=== PATIENT | male | born 1940 | race Caucasian/White ===

== ENCOUNTER 2020-11-22 06:37 | Outpatient (CLI) | payer MEDICARE, SELFPAY ==
--- NOTE | ~2020-11-22 | MR_ITS ---
EXAMINATION: MR lumbar spine wo con DATE: 11/22/2020 07:25 INDICATION: Lumbar spinal stenosis with low back pain radiating down the left leg TECHNIQUE: Magnetic resonance imaging (MRI) of the lumbar spine was performed without intravenous con trast. Sequences included sagittal T2-weighted FSE, sagittal T2-weighted FS FSE, sagittal T1-weighted FSE, and axial T2-weighted FSE. COMPARISON: CT abdomen and pelvis dated 04/15/2017 FINDINGS: Minimal lumbar dextrocurvature. 3 mm retrolisthesis L1 on L2, L3-4 millimeters retrolisthesis L2 on L 3 and L3 on L4 and 6 mm anterolisthesis L5 on S1. Vertebral body heights are normal. Mild fibrofatty and fibrovascular degenerative endplate changes posteriorly at L4-L5. Otherwise normal marrow signal. Severe disc height loss at L3-L4 and L4-L5. Moderate disc height loss at L2-L3 and L5-S1. Mild disc height loss at L1-L2 and at T9-T10 through T11-T12. The conus medullaris terminates at T12. There is normal signal in the caudal spinal cord. Multiple bilateral large T2 hyperintense renal cysts measuri ng up to 6 cm on the right and 5.6 cm on the left. Paravertebral soft tissues are otherwise unremarka ble. The following disc levels are specifically discussed: T12-L1: The disc does not extend beyond the endplate margin. There is mild bilateral facet joint oste oarthritis. There is no neural foraminal stenosis. There is no central canal stenosis. L1-L2: Disc is mildly bulging with superimposed annular fissure and small central disc extrusion with disc material extending a couple millimeter cephalad and caudal to the level of the endplates. There is mild left and minimal right facet joint osteoarthritis. There is mild bilateral, right greater th an left neural foraminal stenosis. There is mild central canal stenosis. L2-L3: Annular fissure with broad-based disc extrusion with disc material extending a few millimeters caudal to the level of the superior endplate of L3 extending from foraminal zone to foraminal zone. There is an additional more focal extrusion versus possibly sequestered disc fragment measuring 6 x 5 mm transaxial dimensions and extending an additional 7 mm caudally at the left lateral recess were i t exerts mass effect upon the traversing left L4 nerve root. There is hypertrophy of the ligamentum f lavum. There is moderate left and mild right facet joint osteoarthritis. There is moderate left and mild to moderate right neural foraminal stenosis. There is moderate central canal stenosis. L3-L4: Annular fissure with broad-based disc extrusion with disc material extending a few millimeter caudal to the level of the superior endplate of L4 extending from foraminal zone to foraminal zone. T here is hypertrophy of the ligamentum flavum. There is mild right facet joint osteoarthritis. There i s moderate bilateral neural foraminal stenosis. There is moderate central canal stenosis. L4-L5: Annular fissure and small disc extrusion extending couple millimeters cephalad and caudal to t he level of the endplates extending from foraminal zone to foraminal zone. There is severe bilateral facet joint osteoarthritis. There is moderate bilateral neural foraminal stenosis. There is moderate to severe central canal stenosis. L5-S1: Annular fissure with disc extrusion with disc material extending couple millimeters cephalad t o the level of the inferior endplate of L5 extending from foraminal zone to foraminal zone. There is severe bilateral facet joint osteoarthritis. There is moderate bilateral neural foraminal stenosis. T here is moderate central canal stenosis. IMPRESSION: 1. Multilevel severe lumbar spondylosis. Reviewed, dictated and finalized at location A.
== END 2020-11-22 06:38 | disposition home or self-care (01) ==
PROVIDERS: PCP Internal Medicine; Visit Provider Nurse Practitioner
DX: M48.061 Spinal stenosis, lumbar region without neurogenic claudication (principal); M21.372 Foot drop, left foot; M47.816 Spondylosis without myelopathy or radiculopathy, lumbar region
CPT/HCPCS: 72148

== ENCOUNTER 2021-11-01 09:42 | Outpatient (CLI) | payer MEDICARE, SELFPAY ==
--- NOTE | ~2021-11-01 | NM_ITS ---
EXAMINATION: NM bone scan whole body DATE: 11/01/2021 14:38 INDICATION: Prostate cancer TECHNIQUE: 27.8 mCi Tc-99m HDP was administered intravenously. Delayed whole-body scintigrams were o btained. COMPARISON: Prior bone scan dated 04/15/[address] abdomen and pelvis dated 11/01/2021 FINDINGS: Likely enthesopathic mild uptake at the right patella and anterior tibial tuberosity. Likely degenera tive joint centered uptake at the bilateral acromioclavicular joints, bilateral facet joints in the m id cervical spine, right first metatarsophalangeal joint and at several joints at the bilateral hands and wrists. Moderate relatively elongated uptake along the lateral right mid/forefoot which could be similar degenerative etiology although location and orientation of the activity could also be seen w ith stress reaction or fracture at one of the lateral metatarsals. Mild degenerative endplate uptake at the left side of the L2-L3, L3-L4 and L4-L5 disc spaces. Small focus of mild likely extravasated s oft tissue activity site of injection at the right forearm. New relatively intense focus of increased uptake at the anterior left sixth rib with corresponding healing rib fracture on the CT images. IMPRESSION: 1. No evident metastatic disease. 2. Mildly intense uptake associated with a healing anterior left sixth rib fracture. 3. Uptake at the lateral right mid/forefoot which could be either degenerative in etiology although l ocation and orientation also be typical for stress reaction/fracture at the base of one of the metata rsals. Could consider relation with plain radiographs of the right foot as clinically indicated. Reviewed, dictated and finalized at location A. IAL PROCEDURES TECHNOLOGIST IMPRESSION: 1. No evident metastatic disease. 2. Mildly intense uptake associated with a healing anterior left sixth rib frac ture. 3. Uptake at the lateral right mid/forefoot which could be either degenerative in etiology although location and orientation also be typical for stress reacti on/fracture at the base of one of the metatarsals. Could consider relation with plain radiographs of the right foot as clinically indicated.
--- NOTE | ~2021-11-01 | CT_ITS ---
EXAMINATION: CT abdomen pelvis w con INDICATION: Malignant neoplasm of the prostate TECHNIQUE: Computed tomographic images of the abdomen and pelvis were obtained after the administrati on of 100 cc of Omnipaque 350 intravenous contrast. The dose-length product (DLP) was 459.26 mGy-cm. Automated exposure control and iterative reconstruction technique were employed. COMPARISON: 04/15/2017 FINDINGS: Minimal dependent atelectasis is present in the lung bases. The heart size is normal. Cysts of the liver measure up to 11 mm in the left hepatic lobe. There is a 10.5 mm hypoattenuating lesion of the spleen not definitely seen on the prior examination. The pancreas, gallbladder, and adrenal g lands are normal. There are multiple cysts of the kidneys. The largest measures 6.4 cm on the left an d contains thin internal septation. There is calcified atherosclerosis of the aorta and many of the o ther arteries. Colonic diverticulosis is present without evidence of diverticulitis. No pathologicall y enlarged abdominal or pelvic lymph nodes are identified. There is no free intraperitoneal gas or ev idence of bowel obstruction. There is severe lumbar spondylosis. IMPRESSION: 1. Indeterminate hypoattenuating lesion of the spleen, new since the comparison examination. Recommen d further evaluation by MRI without and with contrast or PET/CT. Reviewed, dictated and finalized at location B. SORTER IMPRESSION: 1. Indeterminate hypoattenuating lesion of the spleen, new since the comparison examination. Recommend further evaluation by MRI without and with contrast or PET/CT.
[2021-11-01 10:10] LABS: Estimated Glomerular Filt Rate > 60
== END 2021-11-01 09:43 | disposition home or self-care (01) ==
PROVIDERS: PCP Internal Medicine; Visit Provider Urology
DX: C61 Malignant neoplasm of prostate (principal); N28.1 Cyst of kidney, acquired; M47.816 Spondylosis without myelopathy or radiculopathy, lumbar region
CPT/HCPCS: 74177; 78306; A9561; Q9967

== ENCOUNTER 2021-11-23 08:19 | Outpatient (CLI) | payer MEDICARE, SELFPAY ==
--- NOTE | ~2021-11-23 | MR_ITS ---
EXAMINATION: MR abdomen wo/w con DATE: 11/23/2021 09:52 INDICATION: Splenic mass. Prostate cancer. TECHNIQUE: Magnetic resonance imaging (MRI) of the abdomen was performed without and with 14 mL Multi Loretta intravenous contrast. Sequences included coronal T2-weighted FS FSE, coronal and axial FS FIEST A, axial T2-weighted FSE, coronal LAVA-flex, axial STIR FSE, axial DWI, axial dual-echo T1-weighted F SPGR, and axial LAVA. Postcontrast sequences included coronal LAVA-flex and a time course of axial LA VA. COMPARISON: Abdomen MRI 02/15/2008, CT abdomen and pelvis 11/01/2021, 04/15/2017 FINDINGS: There is a small sliding hiatal hernia. There are cysts in the liver measuring up to 12 mm. The gallb ladder is normal. There is a 10 mm cyst in the spleen. There are multiple cystic lesions in the pancr eas measuring up to 9 mm. There is dilatation of pancreatic duct sidechains. These findings are most likely chronic pancreatitis. The adrenal glands are normal. There are cysts in the kidneys measuring up to 6.3 cm on the left. There is diverticulosis of the colon without evidence of diverticulitis. Th ere are no dilated loops of bowel. There are no pathologically enlarged lymph nodes. There is no free intraperitoneal fluid. IMPRESSION: 1. 10 mm benign cyst in the spleen. 2. No evidence of metastatic disease. Reviewed, dictated and finalized at location E.
== END 2021-11-23 08:20 | disposition home or self-care (01) ==
LOC: ANHIMG 08:28
PROVIDERS: PCP Internal Medicine; Visit Provider Urology
DX: Q89.09 Congenital malformations of spleen (principal)
CPT/HCPCS: 74183; A9577

== ENCOUNTER 2022-09-09 11:02 | Emergency (ER) | payer MEDICARE, SELFPAY ==
[2022-09-09 11:12] VITALS: BP 146/75; PULSE 78; RESP 18; TEMP 36.4; O2SAT 97
--- NOTE | 2022-09-09 11:26 | PC.NURSE ---
Pt to xray.
[2022-09-09 11:56] LABS: Basophils Absolute Auto 0.1 K/mm3 (0.0-0.1); Basophils Percent Auto 0.8 % (0.2-1.2); Eosinophils Absolute Auto 0.1 K/mm3 (0-0.3); Hematocrit 41.4 % (42.0-52.0); Hemoglobin 13.7 g/dL (14.0-18.0); Immature Granulocyte Absolute 0.03 K/mm3 (0.00-0.031); Immature Granulocyte Percent A 0.5 % (0-0.5); Lymphocytes Percent Auto 12.7 % (18.3-44.2); Mean Corpuscular HGB Conc 33.1 g/dl (32-36); Mean Corpuscular Hemoglobin 31.5 pg (26-34); Mean Corpuscular Volume 95.2 fl (80-100); Mean Platelet Volume 9.1 fl (7.4-10.4); Monocytes Absolute Auto 0.5 K/mm3 (0.1-0.6); Monocytes Percent Auto 7.8 % (2.6-8.5); Neutrophils Absolute Auto 4.9 K/mm3 (1.3-6.7); Neutrophils Percent Auto 77.2 % (45.5-73.1); Platelet Count Result 304 k/mm3 (150-375); Red Blood Count 4.35 M/mm3 (4.6-6.20); Red Cell Distribution Width 14.6 % (11.5-14.5); White Blood Count 6.3 K/mm3 (4.5-10.0)
[2022-09-09 12:11] LABS: Anion Gap 5 mmol/L (8-16); Blood Urea Nitrogen 15 mg/dL (9-20); Calcium 8.8 mg/dL (8.4-10.2); Carbon Dioxide 27 mmol/L (22-30); Chloride 106 mmol/L (98-107); Estimated CRCL calculation 68 ml/min; Estimated Glomerular Filt Rate > 60; Glucose 95 mg/dL (65-110); Potassium 4.5 mmol/L (3.4-5.0); Sodium 138 mmol/L (137-145)
--- NOTE | 2022-09-09 12:23 | ED.GIBLEED ---
HPI - GI Bleed General Chief complaint: GI Bleed Stated complaint: rectal bleeding Time Seen by Provider: 09/09/22 11:21 History of Present Illness HPI Narrative: 82-year-old male with history of prostate cancer s/p radiation therapy and since then has been having some occasional bright red blood when he wipes, he presented today because it seems to be happening more often when he is wiping. Denies any pain. Also has a history of hemorrhoids. Has had a colonoscopy a long time ago that was normal. No fevers or chills. No dysuria. Related Data Home Medications Medication Instructions Recorded Confirmed aspirin 81 mg tablet,delayed 81 mg PO DAILY 11/14/20 07/08/22 release latanoprost 0.005 % eye drops 1 drp EACH EYE DAILY 11/14/20 07/08/22 multivitamin (Multiple Vitamins 1 tablet PO DAILY 11/14/20 07/08/22 tablet) cholecalciferol (vitamin D3) 10 10 mcg PO DAILY 11/19/21 07/08/22 mcg (400 unit) tablet vit C 250 mg-vit E 90 mg-zinc 40 1 tablet PO BID 11/19/21 07/08/22 mg-copper 1 oc-bfoqln-ezegac capsule (PreserVision AREDS-2) tamsulosin 0.4 mg capsule 0.4 mg PO DAILY 05/21/22 07/08/22 Allergies Allergy/AdvReac Type Severity Reaction Status Date / Time ioversol Allergy Severe Itching Verified 09/09/22 11:03 iodine Allergy Unknown ITCHING Verified 09/09/22 11:03 WITH IV CONTRAST--NO PROBLEM WITH TOPICAL IODINE Review of Systems Review of Systems: CONST: No fever. HEENT: No sore throat C/V: No chest pain RESP: No cough GI: BRBPR, no abdominal pain : No dysuria. M/S: No joint pain. SKIN: No rash. NEURO: [No headache or focal numbness or weakness] PSYCH: [No depression] PMFSH Past Medical History Medical History ASHD (arteriosclerotic heart disease) Essential (primary) hypertension Glaucoma History of prostate cancer Mixed hyperlipidemia Surgical History Surgical History Status post total replacement of left shoulder Family History Family History Father Family history of heart disease in male family member before age 55, Onset Age: 58 Hypertension Mother Bladder cancer Social History Social History Smoking status: Unknown if ever smoked Second hand tobacco smoke exposure: No Alcohol intake: current Alcohol use details: patient states that he drinks 5% [place] hard lemonade and drink 2/3 times weekly. Substance use: never Substance use type: does not use Gender identity (if verbalized by the patient): Male Exam Narrative: EXAMINATION OF ORGAN SYSTEMS/BODY AREAS: Constitutional: Vital signs per nursing GENERAL:[No acute distress, non-toxic appearing.] HEAD: Normal with no signs of head trauma. EYES: EOMI, conjunctiva normal ENT: Hearing grossly intact LUNGS: Nonlabored breathing. HEART: [Regular rate and rhythm] ABD: [Soft], [nontender to palpation] RECTAL: Soft brown stool with minimal bright red blood, hemoccult positive, no tenderness EXT: Normal range of motion SKIN: [No rashes or lesions.] NEURO: [Alert and oriented x 3. No gross focal sensory or strength deficits.] PSYCH: Normal affect Course Vital Signs Vital signs: Vital Signs Temperature 97.5 F L 09/09/22 11:12 Pulse Rate 78 09/09/22 11:12 Respiratory Rate 18 09/09/22 11:12 Blood Pressure 146/75 H 09/09/22 11:12 Pulse Oximetry 97 09/09/22 11:12 Oxygen Delivery Room Air 09/09/22 11:12 Temperature 97.5 F L 09/09/22 11:12 Pulse Rate 78 09/09/22 11:12 Respiratory Rate 18 09/09/22 11:12 Blood Pressure 146/75 H 09/09/22 11:12 Pulse Oximetry 97 09/09/22 11:12 Oxygen Delivery Room Air 09/09/22 11:12 MDM - GI Bleed MDM Narrative Medical decision making narrative: EMR reviewed, patient presenting with bright red blood per rect
--- NOTE | 2022-09-09 12:25 | PC.NURSE ---
Dr. Maradiaga at bedside to discuss results and treatment plan with patient.
== END 2022-09-09 12:36 | disposition home or self-care (01) ==
PROVIDERS: Emergency Provider Emergency Medicine; PCP Internal Medicine
DX: K64.9 Unspecified hemorrhoids (principal); K62.5 Hemorrhage of anus and rectum; I25.10 Atherosclerotic heart disease of native coronary artery without angina pectoris; I10 Essential (primary) hypertension; E78.2 Mixed hyperlipidemia; H40.9 Unspecified glaucoma; Z85.46 Personal history of malignant neoplasm of prostate; Z92.3 Personal history of irradiation; Z79.82 Long term (current) use of aspirin; Z96.612 Presence of left artificial shoulder joint
CPT/HCPCS: 36415; 80048; 85025; 99283

== ENCOUNTER 2022-10-14 11:08 | Day surgery (SDC) | payer MEDICARE, SELFPAY ==
[2022-10-03 10:59] VITALS: BMI 27.0
--- NOTE | 2022-10-13 12:42 | SUR.PREOP ---
PT NOTIFIED OF TIME CHANGE TO 1300 START. PT TO BE HERE AT 1130 ON 10/13/22. PT VERBALIZED UNDERSTANDING.
--- NOTE | 2022-10-13 16:03 | WPDANESEPPF ---
Anes - Initial Pre Proc Eval Procedure: Operation Date: 10/14/22 13:00 Proposed Procedures p Diagnostic Colonoscopy - Osorio Christianson MD Date/Time: 10/13/22 16:03 Surgeon: Osorio Christianson MD Pre Op Diagnosis: Hemorrhage of Anus and Rectum Patient Data Age: 82 Gender: M Height: 1.63 m Weight: 71.5 kg Allergies Allergy/AdvReac Type Severity Reaction Status Date / Time ioversol Allergy Severe Itching Verified 10/14/22 11:45 iodine Allergy Unknown ITCHING Verified 10/14/22 11:45 WITH IV CONTRAST--NO PROBLEM WITH TOPICAL IODINE Home Medications Medication Instructions Recorded Confirmed Type aspirin 81 mg tablet,delayed 81 mg PO DAILY 11/14/20 10/14/22 History release latanoprost 0.005 % eye drops 1 drp EACH EYE DAILY 11/14/20 10/14/22 History multivitamin (Multiple Vitamins 1 tablet PO DAILY 11/14/20 10/14/22 History tablet) cholecalciferol (vitamin D3) 10 10 mcg PO DAILY 11/19/21 10/14/22 History mcg (400 unit) tablet vit C 250 mg-vit E 90 mg-zinc 40 1 tablet PO BID 11/19/21 10/14/22 History mg-copper 1 ly-dltqti-ehltdf capsule (PreserVision AREDS-2) metoprolol tartrate 25 mg tablet 25 mg PO BID #180 tabs 07/04/22 10/14/22 Rx atorvastatin 40 mg tablet 40 mg PO QHS #90 tabs 07/28/22 10/14/22 Rx amlodipine 10 mg tablet 10 mg PO DAILY #90 tabs 08/04/22 10/14/22 Rx lisinopril 20 mg tablet See Rx Instructions .Route 08/19/22 10/14/22 Rx .COMPLEX #90 tabs sodium,potassium,mag sulfates 17.5 See Rx Instructions PO .COMPLEX 10/02/22 10/14/22 Rx gram-3.13 gram-1.6 gram oral soln #354 mL (Suprep Bowel Prep Kit) Patient hx anesthesia problems: none Family hx anesthesia problems: none Results Review: All pre-operative results and documents have been reviewed as part of the pre-operative evaluation. [facility] Past Medical History Medical History (Updated 10/14/22 @ 12:32 by Zoran Cortés DO) ASHD (arteriosclerotic heart disease) CAD (coronary artery disease) COVID Essential (primary) hypertension Glaucoma History of prostate cancer Mixed hyperlipidemia Surgical History Surgical History (Updated 10/14/22 @ 12:32 by Zoran Cortés DO) History of coronary artery stent placement x2, 2000 Status post total replacement of left shoulder Family History Family History Father Family history of heart disease in male family member before age 55, Onset Age: 58 Hypertension Mother Bladder cancer Social History Social History (Updated 10/01/22 @ 10:51 by Ivelisse Bryan CMA) Smoking status: Never smoker Second hand tobacco smoke exposure: No Alcohol intake: current Alcohol use details: patient states that he drinks 5% [place] hard lemonade and drink 2/3 times weekly. Substance use: never Substance use type: does not use Lack of Transportation: No Lack of Food: Never True Current Housing: I Have Housing Concerned About Future Housing: No Difficulty Paying Gas/Electric Bills: No Difficulty Paying for Meds: No Currently Unemployed: No Education: Trade/Vocational Certificate Difficulty w/ Childcare or Family Care: No Living arrangements: with family Occupation/Education: retired Gender identity (if verbalized by the patient): Male Spiritual care concerns: No Anes - Eval Final PreProcedure Day of Procedure 10/13/22 16:03 Patient weight: overweight Heart: regular rate and rhythm Lungs: clear to auscultation Airway: Mallampati scale class II Neurological: alert and oriented Last oral intake: >/= 8 hours ASA classification: III Emergent: no Anesthetic plan: proceed Anesthesia type and monitoring: general GIVS and standard monitoring Results Review: All pre-operative results and documents have been reviewed as part of the pre-operative evaluation. Informed Consent: The patient's anesthetic plan and its attendant risks
[2022-10-14 11:52] VITALS: BP 120/78; PULSE 68; RESP 20; TEMP 36.8; O2SAT 99
[2022-10-14] MEDS: LACTATED RINGERS 1,000 ML 150 ML IV CONT (11:58)
--- NOTE | 2022-10-14 12:56 | WPDHPUPDATE1 ---
History and Physical Update Update Date/Time: 10/14/22 12:56 History and Physical has been reviewed, including an updated exam of the patient. There are NO changes in the patient's condition. Risks, benefits, and alternatives have been discussed and questions answered. Patient agrees to proceed with procedure.
[2022-10-14 13:47] VITALS: BP 101/59; PULSE 62; RESP 17; O2SAT 96
[2022-10-14 13:57] VITALS: BP 105/61; PULSE 59; RESP 18; O2SAT 99
[2022-10-14 14:07] VITALS: BP 104/68; PULSE 61; RESP 18; O2SAT 100
--- NOTE | 2022-10-14 14:19 | WPDANESPN ---
Anes - Prog Note Post-Op Date/Time: 10/14/22 14:19 Cardiovascular status: normal Respiratory status: normal Airway patency: baseline Mental status: baseline Post-Op hydration status: normal Vital Signs: Last Vital Signs Temp 36.8 C 10/14/22 11:52 Pulse 62 10/14/22 13:47 Resp 17 10/14/22 13:47 BP 101/59 L 10/14/22 13:47 Pulse Ox 96 10/14/22 13:47 O2 Del Method Room Air 10/14/22 13:47 Pain Score (VAS): 0 I/O: Intake & Output 10/13/22 10/14/22 10/14/22 23:59 07:59 15:59 Intake Total 500 Balance 500 Post-procedural complaints: none Patient Feedback: Patient satisfied with anesthetic care. Other Findings: Patient vital signs back to baseline. Patient denies nausea and vomiting. Patient's pain under control. Patient OK for discharge.
== END 2022-10-14 14:30 | disposition home or self-care (01) ==
PROVIDERS: PCP Internal Medicine; Visit Provider Internal Medicine Gastroenterology
PROC: 0DJD8ZZ Inspection of Lower Intestinal Tract, Via Natural or Artificial Opening Endoscopic (ICD-10-PCS; CPT 45378; principal; 2022-10-14 13:00)
DX: K62.5 Hemorrhage of anus and rectum (principal)
CPT/HCPCS: 45378

== ENCOUNTER 2023-04-07 06:43 | Outpatient (CLI) | payer MEDICARE, SELFPAY | END 2023-04-07 06:44 | disposition home or self-care (01) | PROVIDERS: PCP Family Medicine; Visit Provider Internal Medicine | DX: E27.40 Unspecified adrenocortical insufficiency (principal); R53.83 Other fatigue | CPT/HCPCS: 36415; 82533; 96372; J0834 ==

== ENCOUNTER 2023-08-20 11:28 | Outpatient (CLI) | payer MEDICARE, SELFPAY ==
--- NOTE | ~2023-08-20 | XR_ITS ---
EXAM: XR foot RT 2V DATE: 08/20/2023 11:48 HISTORY: M79.671 - Pain in right foot, DORSAL 3RD/4TH MT , NO INJURY . COMPARISON: None available. FINDINGS: Decreased mineralization. Well-corticated osseous fragment adjacent to the fifth metatarsa l tuberosity may represent an old fracture fragment. No acute fracture or dislocation. No lytic or bl astic lesion. Mild Achilles and plantar enthesopathy. Scattered degenerative changes, moderate in the midfoot. No erosion or periosteal change. Soft tissues within normal limits. IMPRESSION: No acute osseous finding in the right foot. Reviewed, dictated and finalized at location K. NEL MARKETING MANAGER
== END 2023-08-20 11:29 | disposition home or self-care (01) ==
PROVIDERS: PCP Nurse Practitioner Family; Visit Provider Nurse Practitioner Family
DX: M79.671 Pain in right foot (principal)
CPT/HCPCS: 73620

== ENCOUNTER 2023-10-06 13:38 | Outpatient (CLI) | payer MEDICARE, SELFPAY ==
--- NOTE | ~2023-10-06 | DEXA_ITS ---
Bone Density Report Name: MATTEO CAMEJO Age: 83 Sex: Male Ethnicity: White Date of : 1940 Indication: screening for osteoporosis; height loss; cancer; Referring Provider: AMOR POWELL Study: Bone densitometry was performed. Exam Date: October 06, 2023 Accession number: [id number] Bone Density: Region BMD T-score Z-score Classification AP Spine(L1, L2, L3) 1.004 -0.6 0.6 Normal Femoral Neck (Left) 0.590 -2.5 -0.8 Osteoporosis Total Hip (Left) 0.909 -0.8 0.4 Normal Femoral Neck (Right) 0.606 -2.4 -0.7 Osteopenia Total Hip (Right) 0.815 -1.4 -0.2 Osteopenia Total Hip Mean 0.862 -1.1 0.1 Osteopenia World Health Organization criteria for BMD impression classify patients as: Normal (T-score at or above -1.0), Osteopenia (T-score between -1.0 and -2.5), or Osteoporosis (T-score at or below -2.5). 10-year Fracture Risk: FRAX not reported because: Some T-score for Spine Total or Hip Total or Femoral Neck at or below -2.5 Clinical Information Provided by Patient: Has used the following medications: Vitamin D Has the following medical conditions: Cancer Patient maximum height was 65 Drinks caffeinated beverages Impression: The patient has osteoporosis, based on the Left Femoral Neck T-score. Discussion: INCREASED RISK OF FRACTURE. BONE DENSITY IS UNDESIRABLY LOW AT ONE OR MORE SKELETAL SITES, CONSISTENT WITH OSTEOPOROSIS. This patient's lowest T-score meets the World Health Organization's (WHO) criteria for osteoporosis at one or more sites (T-score -2.5 or below). In untreated patients, the risk of osteoporotic fracture increases approximately two-fold for each 1.0 SD decrease in T-score. Low bone density is not the only risk factor for fracture; also consider factors such as patient's age, frailty or poor health, risk of falling, risk of injury, previous osteoporotic fracture, family history of osteoporosis, cigarette smoking, low body weight, etc. Not everyone with low bone mineral density has osteoporosis; osteomalacia and other metabolic bone disorders should also be considered. Patients who have osteoporosis should be evaluated for specific diseases and conditions (secondary causes) that may cause or contribute to bone loss. The National Osteoporosis Foundation (NOF) recommends pharmacologic intervention for men with BMD at this level (a T-score of -2.5 or below). The patient should follow a healthful lifestyle (good nutrition with adequate calcium and vitamin D, and appropriate weight-bearing exercise). Follow-Up: Consider repeating this study in 2 years to reassess this patient's status, or sooner if there is some new clinical indication. Reported by: [facility] on 10/06/2023 2:17:00 PM. Reviewed, dictated and finalized at location A. MTD
== END 2023-10-06 13:39 | disposition home or self-care (01) ==
PROVIDERS: PCP Nurse Practitioner Family; Visit Provider Internal Medicine
DX: R94.6 Abnormal results of thyroid function studies (principal); M81.0 Age-related osteoporosis without current pathological fracture
CPT/HCPCS: 77080

== ENCOUNTER 2024-07-20 15:02 | Emergency (ER) | payer MEDICARE, SELFPAY ==
[2024-07-20 15:13] VITALS: BP 126/82; PULSE 100; RESP 16; TEMP 36.4; O2SAT 97
--- NOTE | 2024-07-20 15:13 | ED.GENADULT ---
HPI - General Adult General Chief complaint: Urogenital-Male Stated complaint: left testicle pain Time Seen by Provider: 07/20/24 15:13 Source: patient Mode of arrival: ambulatory Limitations: no limitations History of Present Illness HPI narrative: 84 y/o y/o male with history of prostate cancer presented for c/o left testicular pain x1 week. endorses the pain is worse when getting out of bed in the morning, and better throughout the daytime. Pain radiates down the left leg and is worse when trying to lift the left leg. States it feels slightly better after urinating. Pt denies testicular swelling or redness. Denies changes in urination, abdominal pain, nausea, vomiting, diarrhea or fever. Denies chest pain, palpitations, dizziness or shortness of breath. Related Data Home Medications Medication Instructions Recorded Confirmed aspirin 81 mg tablet,delayed 81 mg PO DAILY 11/14/20 02/11/24 release latanoprost 0.005 % eye drops 1 drp EACH EYE DAILY 11/14/20 02/11/24 multivitamin (Multiple Vitamins 1 tablet PO DAILY 11/14/20 02/11/24 tablet) cholecalciferol (vitamin D3) 10 10 mcg PO DAILY 11/19/21 02/11/24 mcg (400 unit) tablet vit C 250 mg-vit E 90 mg-zinc 40 1 tablet PO BID 11/19/21 02/11/24 mg-copper 1 [id number] capsule (PreserVision AREDS-2) krill 300 mg-omega 3 90 mg-dha 24 1 cap PO DAILY 02/02/23 02/11/24 mg-epa 50 [id number] capsule (MegaRed [place]-3 Krill Oil) Allergies Allergy/AdvReac Type Severity Reaction Status Date / Time ioversol Allergy Severe Itching Verified 07/20/24 15:26 iodine Allergy Unknown ITCHING Verified 07/20/24 15:26 WITH IV CONTRAST--NO PROBLEM WITH TOPICAL IODINE Review of Systems Review of Systems: CONSTITUTIONAL: Denies body aches, fever, chills, or sweats. CARDIOVASCULAR: Denies chest pain, palpitations, or edema. RESPIRATORY: Denies cough or dyspnea. GASTROINTESTINAL: Denies abdominal pain, nausea, vomiting, or diarrhea. GENITOURINARY: Reports testicular pain Denies dysuria or hematuria. SKIN: Denies rash, or wounds. MUSCULOSKELETAL: Denies back pain, joint pain, or myalgia. NEUROLOGIC: Denies headache, numbness, tingling, or weakness. All systems reviewed & are unremarkable except as noted in HPI and below COUNT INCLUDES THE [facility] Past Medical History Medical History ASHD (arteriosclerotic heart disease) CAD (coronary artery disease) COVID Essential (primary) hypertension Gastro-esophageal reflux disease without esophagitis Glaucoma History of prostate cancer Left foot drop Lumbar spinal stenosis Mixed hyperlipidemia Osteoporosis Prostate cancer 2021 Radiation proctitis Seborrheic keratosis Surgical History Surgical History History of coronary artery stent placement x2, 1999 History of eye surgery left eye History of shoulder replacement right Status post total replacement of left shoulder Family History Family History Father Family history of heart disease in male family member before age 55, Onset Age: 58 Hypertension Acute myocardial infarction Heart disease Mother Bladder cancer Cerebrovascular accident Sibling , 2021 Liver cancer, primary, with metastasis from liver to other site sister Social History Social History Smoking status: Never smoker Second hand tobacco smoke exposure: No Alcohol intake: current Alcohol use details: occasionally Substance use: never Substance use type: does not use Lack of Transportation: No Lack of Food: Never True Current Housing: I Have Housing Concerned About Future Housing: No Difficulty Paying Gas/Electric Bills: No Difficulty Paying for Meds: No Currently Unemployed: No Education: Trade/Vocational Certificate Difficulty w/ Childcare or Family Care: No Living arrangements: with family Occupation/Education: retired Gender identity (if verbalized by the patient): Male Spiritual care concerns: No Comments At time of signature, I have reviewed and agree with nursing past medical, surgical, social and family history unless otherwise noted. Please see nursing chart for further information. There is no relevant family history pertinent to the presenting complaint Exam Narrative: GENERAL: Well-appearing EYES: EOMI. No redness or drainage. Conjunctivae normal. ENT: Mucous membranes pink and moist. CHEST: No respiratory distress. Clear to auscultation. HEART: Irregular rhythm, tachycardic. No murmur appreciated. ABDOMEN: Soft, nontender, nondistended, normal active bowel sounds. Mildly tender to left inguinal area. : No testicular swelling, abscess, or discharge. Nontender with palpation. SKIN: Warm, dry, no rash. Capillary refill normal. Normal skin turgor. NEURO: No focal deficits. Alert and oriented x3. Gait steady. PSYCH: Normal affect. Course Course Emergency Course: Patient is aware of diagnosis, understands and agrees to treatment plan. Anticipatory guidance given. Patient agrees to follow-up as directed and is aware of reasons to seek care at the emergency department. Portions of this record may have been created with voice recognition software Level of Care: Express Care Visit Transfer Transfered to: [place] Transportation: Other (Private vehicle) Transfer rationale: Pt is agreeable to transfer. Requests transfer to [facility] via private vehicle. Patient declined EMS. Risks of transportation reviewed with pt including injury, worsening of condition and . v/u. Report called to hospital, spoke with Tee, accepting physician. Pt is in stable condition at time of transfer. Advised to remain NPO and go directly to the hospital. Medical Decision Making MDM Narrative Medical decision making narrative: Patient presented for complaint of left testicular pain, however noted to have new onset AFib RVR per EKG. Patient is asymptomatic. Advised ER transfer. Verbalizes understanding. Differential Diagnosis Differential Diagnosis: hydrocele, spermatocele, varicocele, torsion, tumor, inguinal hernia, orchitis, urethritis, epididymitis, uti, prostatitis, jyoti gangrene, tinea cruris, std, malignancy Vital Signs Vital Signs: reviewed ECG Data EKG #1: Attestation: I personally reviewed and interpreted this ECG as follows: (Atrial fibrillation with RVR rate 117, QRS 75, QT/QTc 298/368) Discharge Plan Discharge Clinical Impression: Atrial fibrillation, new onset, Left testicular pain Patient Disposition: Acute Care Hospital Condition: Stable Prescriptions: No Action multivitamin [Multiple Vitamins] Tablet 1 tablet PO DAILY aspirin 81 mg tablet,delayed release (DR/EC) 81 mg PO DAILY latanoprost 0.005 % drops 1 drp EACH EYE DAILY [id number] [MegaRed [place]-3 Krill Oil] [id number] mg capsule 1 cap PO DAILY calcium carbonate 500 mg calcium (1,250 mg) tablet,chewable 500 mg PO BID Qty: 360 0RF PreserVision AREDS-2 250-90-40-1 mg capsule 1 tablet PO BID cholecalciferol (vitamin D3) 10 mcg (400 unit) tablet 10 mcg PO DAILY methocarbamol 500 mg tablet 500 mg PO BID PRN (Reason: muscle pain) Qty: 30 0RF alendronate 35 mg tablet 35 mg PO WEEKLY Qty: 12 0RF Rx Instructions: 35 mg once weekly take the medication on an empty stomach and to wait at least 1 hour before eating drinking taking other medications Not lie down for at least 1 hour after taking the medication metoprolol tartrate 25 mg tablet See Rx Instructions .ROUTE .COMPLEX Qty: 180 0RF Dose Instruction: TAKE 1 TABLET BY MOUTH TWICE DAILY Rx Instructions: TAKE 1 TABLET BY MOUTH TWICE DAILY lisinopril 20 mg tablet See Rx Instructions .ROUTE .COMPLEX Qty: 90 0RF Dose Instruction: TAKE 1 TABLET BY MOUTH DAILY Rx Instructions: TAKE 1 TABLET BY MOUTH DAILY atorvastatin 40 mg tablet See Rx Instructions .ROUTE .COMPLEX Qty: 90 0RF Dose Instruction: TAKE 1 TABLET BY MOUTH EVERY DAY AT BEDTIME Rx Instructions: TAKE 1 TABLET BY MOUTH EVERY DAY AT BEDTIME amlodipine 10 mg tablet See Rx Instructions .ROUTE .COMPLEX Qty: 90 0RF Dose Instruction: TAKE 1 TABLET BY MOUTH DAILY Rx Instructions: TAKE 1 TABLET BY MOUTH DAILY Follow-up/Referrals: Kayla Lindquist APRN [Primary Care Provider] - Time of Disposition: 15:48
--- NOTE | 2024-07-20 15:26 | ECG_ITS ---
Test Date: 2024-07-20 15:36:39 Measurements Intervals [place] Rate: 117 P: 0 AL: 0 QRS: -8 QRSD: 75 T: 25 QT: 298 QTc: 417 Interpretive Statements ATRIAL FIBRILLATION WITH RAPID VENTRICULAR RESPONSE LOW QRS VOLTAGE IN LIMB LEADS INFERIOR INFARCT, AGE INDETERMINATE BORDERLINE ST-T WAVE ABNORMALITY- ANTEROLAT/HIGH LAT LEADS BASELINE ARTIFACT- I, III, AVR, AVL ABNORMAL ECG No previous ECG available for comparison Electronically Signed On 07-20-2024 15:54:35 TOP INSTALLER by Silverio Urias D.O.
== END 2024-07-20 15:54 | disposition short-term general hospital (02) ==
PROVIDERS: Emergency Provider Nurse Practitioner Family; PCP Nurse Practitioner Family
DX: I48.91 Unspecified atrial fibrillation (principal); N50.812 Left testicular pain; I25.10 Atherosclerotic heart disease of native coronary artery without angina pectoris; I10 Essential (primary) hypertension; K21.9 Gastro-esophageal reflux disease without esophagitis; H40.9 Unspecified glaucoma; E78.2 Mixed hyperlipidemia; M81.0 Age-related osteoporosis without current pathological fracture; M48.061 Spinal stenosis, lumbar region without neurogenic claudication; Z85.46 Personal history of malignant neoplasm of prostate; Z86.16 Personal history of COVID-19; Z95.5 Presence of coronary angioplasty implant and graft; Z96.612 Presence of left artificial shoulder joint; Z96.611 Presence of right artificial shoulder joint; Z79.82 Long term (current) use of aspirin
CPT/HCPCS: 93005; 99213; G0463

== ENCOUNTER 2024-07-20 16:19 | Observation (INO) | payer MEDICARE, SELFPAY ==
[2024-07-20] VITALS (16 sets, daily range): BP systolic 98–141; BP diastolic 59–95; PULSE 75–140; RESP 14–20; TEMP 36.5–36.6; O2SAT 97–100; BMI 26.2
--- NOTE | ~2024-07-20 | XR_ITS ---
EXAMINATION: XR chest 1V portable DATE: 07/20/2024 17:09 INDICATION: Tachycardia arrhythmia TECHNIQUE: frontal view of the chest was obtained. COMPARISON: None FINDINGS: Mild streaky left basilar atelectasis. No other airspace opacities, pulmonary edema, pleural effusion or pneumothorax. Calcified right hilar lymph node consistent with old granulomatous disease. Heart s ize is normal. Bilateral total shoulder arthroplasties. IMPRESSION: 1. Mild streaky left basilar atelectasis. No other acute cardiopulmonary disease. Reviewed, dictated and finalized at location A. CARE AIDE TEACHER IMPRESSION: 1. Mild streaky left basilar atelectasis. No other acute cardiopulmonary diseas e.
--- NOTE | ~2024-07-20 | US_ITS ---
TESTICULAR ULTRASOUND (Doppler ultrasound interrogation techniques used as needed for this exam.) Ordering provider: Daniella Sarmiento MD History: . testicular pain . Comparison: None. FINDINGS: TESTICLES: Normal in size. The right measures 3x 1.7x 2.5 cm and the left measures 3.1x 1.8x 2.3 cm. Normal echogenicity bilaterally without mass lesion. Normal Doppler flow bilaterally. Anechoic areas seen in the left testicle anteriorly measuring 0.2 x 0.1 cm. EPIDIDYMIDES: Normal in size. The right measures 1x 0.7 cm. cm and the left 0.7x 0.9 cm. Normal echog enicity bilaterally. Both demonstrate normal Doppler flow. Anechoic areas seen in the right epididymi s measuring 0.3 x 0.2 cm. HYDROCELE: None. VARICOCELE: Left varicocele. OTHER ABNORMALITY: None seen. IMPRESSION: Left testicular cyst. The right epididymal cyst. Left varicocele. Otherwise, normal testicular ultras ound. Reviewed, dictated and finalized at location A. ROASTER IMPRESSION: Left testicular cyst. The right epididymal cyst. Left varicocele. Otherwise, no rmal testicular ultrasound.
--- NOTE | 2024-07-20 16:24 | ECG_ITS ---
Test Date: 2024-07-20 16:29:34 Measurements Intervals [place] Rate: 140 P: 0 AK: 0 QRS: 17 QRSD: 68 T: 53 QT: 275 QTc: 420 Interpretive Statements ATRIAL FIBRILLATION WITH RAPID VENTRICULAR RESPONSE LOW QRS VOLTAGE IN LIMB LEADS BORDERLINE ST-T WAVE ABNORMALITY- DIFFUSE LEADS BASELINE ARTIFACT- I, II, III, AVR, AVL, AVF, V2 ABNORMAL ECG Compared to ECG 07/20/2024 15:36:39 HEART RATE HAS DECREASED Electronically Signed On 07-20-2024 18:22:50 ENGINEERING OPERATOR by Silverio Urias D.O.
--- NOTE | 2024-07-20 16:31 | ED.GENADULT ---
HPI - General Adult General Chief complaint: Urogenital-Male Stated complaint: left testicular pain, new afib Time Seen by Provider: 07/20/24 16:31 Source: patient Mode of arrival: ambulatory Limitations: no limitations History of Present Illness HPI narrative: 84 YEARS OLD WHITE MALE CAME TO THE EMERGENCY ROOM BY PRIVATE CAR COMPLAINING OF LEFT TESTICULAR PAIN STARTED FEW DAYS AGO. HE DENIES ANY FEVER, CHILLS, NAUSEA, VOMITING, ABDOMINAL PAIN, RADIATION OF PAIN, TRAUMA OR TROUBLE URINATING. HISTORY OF HYPERTENSION, HYPERLIPIDEMIA, BABY ASPIRIN ONCE A DAY. HISTORY OF PROSTATIC CANCER POSTOP ACIDOSIS TREATMENT. Related Data Home Medications Medication Instructions Recorded Confirmed aspirin 81 mg tablet,delayed 81 mg PO DAILY 11/14/20 07/20/24 release latanoprost 0.005 % eye drops 1 drp EACH EYE HS 11/14/20 07/20/24 multivitamin (Multiple Vitamins 1 tablet PO DAILY 11/14/20 07/20/24 tablet) cholecalciferol (vitamin D3) 10 10 mcg PO DAILY 11/19/21 07/20/24 mcg (400 unit) tablet vit C 250 mg-vit E 90 mg-zinc 40 1 tablet PO BID 11/19/21 07/20/24 mg-copper 1 [id number]-wmlavw capsule (PreserVision AREDS-2) krill 300 mg-omega 3 90 mg-dha 24 1 cap PO DAILY 02/02/23 07/20/24 mg-epa 50 uw-[id number]-mrgfp capsule (MegaRed [place]-3 Krill Oil) amlodipine 10 mg tablet 10 mg PO DAILY 07/20/24 07/20/24 atorvastatin 40 mg tablet 40 mg PO HS 07/20/24 07/20/24 calcium carbonate 500 mg PO BID PRN Indigestion 07/20/24 07/20/24 lisinopril 20 mg tablet 20 mg PO DAILY 07/20/24 07/20/24 metoprolol tartrate 25 mg tablet 25 mg PO BID 07/20/24 07/20/24 Allergies Allergy/AdvReac Type Severity Reaction Status Date / Time ioversol Allergy Severe Itching Verified 07/20/24 21:40 iodine Allergy Unknown ITCHING Verified 07/20/24 21:40 WITH IV CONTRAST--NO PROBLEM WITH TOPICAL IODINE Review of Systems Review of Systems: All systems reviewed & are unremarkable except as noted in HPI and below PMFSH Past Medical History Medical History CAD (coronary artery disease) With angioplasty and 2 stents in 1999 COVID Essential (primary) hypertension Gastro-esophageal reflux disease without esophagitis Glaucoma History of prostate cancer Kidney stones (~2000) Left foot drop Lumbar spinal stenosis Mixed hyperlipidemia Osteoporosis Prostate cancer 2021 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) 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 bleeding Seborrheic keratosis Sleep apnea With recommended CPAP of pressure 13 on polysomnogram 2011 Vitamin D deficiency Surgical History Surgical History (Updated 07/20/24 @ 21:08 by Anitra Gibson DO) History of coronary artery stent placement x2, 1999 History of eye surgery left eye retinal surgery Status post cataract extraction of both eyes with insertion of intraocular lens Status post total replacement of left shoulder Status post total replacement of right shoulder Family History Family History Father Family history of heart disease in male family member before age 55, Onset Age: 58 Hypertension Acute myocardial infarction Heart disease Mother Bladder cancer Cerebrovascular accident Sibling , 2021 Liver cancer, primary, with metastasis from liver to other site sister Social History Social History (Updated 07/21/24 @ 07:35 by Anitra Gibson DO) Social History: He has been for 63 years. He and his raised 1 daughter and 1 son. 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 He drinks 1 glass of wine couple of times a month. He is a lifelong nonsmoker and denies history of illicit substance use. He works out at least once a week at [employer] usually on the treadmill. Code status: Full code Surrogate decision maker: Smoking status: Never smoker Second hand tobacco smoke exposure: No Alcohol intake: never Alcohol use details: occasionally Substance use: never Substance use type: does not use Do You Feel Safe in your Home?: Yes Lack of Transportation: No Lack of Food: Never True Current Housing: I Have Housing Concerned About Future Housing: No Difficulty Paying Gas/Electric Bills: No Difficulty Paying for Meds: No Currently Unemployed: No Education: Trade/Vocational Certificate Difficulty w/ Childcare or Family Care: No Living arrangements: with family Occupation/Education: retired Gender identity (if verbalized by the patient): Male Spiritual care concerns: No Exam Narrative: GENERAL APPEARANCE: WELL-DEVELOPED, WELL-NOURISHED SKIN: NORMAL COLOR HEAD: NORMOCEPHALIC, NONTRAUMATIC EYES: CLEAR CONJUNCTIVA ENT: OROPHARYNX NORMAL, EARS NORMAL, NOSE NORMAL NECK: SUPPLE, NONTENDER CHEST AND RESPIRATORY: AIRWAY PATENT, NO RESPIRATORY DISTRESS, NO ACCESSORY MUSCLE USE HEART: TACHYCARDIA, IRREGULAR IRREGULARITY ABDOMEN: SOFT, NONTENDER, NO ORGANOMEGALY, QUIET BOWEL SOUNDS GENITAL EXAMINATION SHOWED NO ACUTE ABNORMALITIES, NO LOCALIZED TENDERNESS, NO SWELLING, NO SKIN RASH NO WOUND. MUSCULOSKELETAL: NORMAL RANGE OF MOTION, NONTENDER BACK NEUROLOGIC: ALERT AND ORIENTED ?3, DISTRICT OPERATIONS MANAGER IS NORMAL TESTED, NO GROSS MOTOR DEFICIT Course Consultations Consultation #1: DR RECINOS WILL SEE THE PATIENT IN THE MORNING. Date: 07/20/24 Time: 18:41 Vital Signs Vital signs: Vital Signs Temperature 36.5 C 07/20/24 16:22 Pulse Rate 140 H 07/20/24 16:22 Respiratory Rate 15 07/20/24 16:22 Blood Pressure 141/95 H 07/20/24 16:22 Pulse Oximetry 99 07/20/24 16:22 Oxygen Delivery Room Air 07/20/24 16:22 Temperature 36.9 C 07/21/24 19:08 Pulse Rate 104 H 07/21/24 22:00 Respiratory Rate 18 07/21/24 20:00 Blood Pressure 108/59 L 07/21/24 19:08 Pulse Oximetry 99 07/21/24 20:00 Oxygen Delivery Room Air 07/21/24 20:00 Medical Decision Making MDM Narrative Medical decision making narrative: PATIENT CAME TO THE ED BY PRIVATE CAR COMPLAINING OF LEFT TESTICULAR PAIN, NONTRAUMATIC, 5-6 DAYS AGO. VITAL SIGNS SHOWING HEART RATE OF 140, AFIB WITH RVR, NEW ONSET, PHYSICAL EXAMINATION SHOWED TACHYCARDIA WITH REGULAR IRREGULARITY DIFFERENTIAL DIAGNOSIS INCLUDE TESTICULAR MASS, TORSION, VARICOCELE, CYST, EPIDIDYMITIS, ORCHITIS, AFIB WITH RVR, ELECTROLYTE IMBALANCE, DEHYDRATION, CORONARY ARTERY DISEASE BLOOD WORKUP TODAY INCLUDES CBC, CMP, TROPONIN, PT PTT, BNP SHOWED ELEVATED BNP [id number] OTHERWISE INSIGNIFICANT CHEST X-RAY SHOWED NO ACUTE ABNORMALITIES TESTICULAR ULTRASOUND SHOWED LEFT TESTICULAR CYST, RIGHT EPIDIDYMAL CYST, LEFT VARICOCELE. OTHERWISE NORMAL TESTICULAR ULTRASOUND EKG ON ARRIVAL SHOWED AFIB WITH RVR AT 140 BEATS PER MINUTE ADMIT TO HOSPITALIST, CONSULT CARDIOLOGY AND UROLOGIST Differential Diagnosis Differential Diagnosis: ABOVE Vital Signs Vital Signs: Vital Signs Temperature 36.5 C 07/20/24 16:22 Pulse Rate 140 H 07/20/24 16:22 Respiratory Rate 15 07/20/24 16:22 Blood Pressure 141/95 H 07/20/24 16:22 Pulse Oximetry 99 07/20/24 16:22 Oxygen Delivery Room Air 07/20/24 16:22 Temperature 36.9 C 07/21/24 19:08 Pulse Rate 104 H 07/21/24 22:00 Respiratory Rate 18 07/21/24 20:00 Blood Pressure 108/59 L 07/21/24 19:08 Pulse Oximetry 99 07/21/24 20:00 Oxygen Delivery Room Air 07/21/24 20:00 Lab Data 07/20/24 16:41 07/20/24 16:41 Labs: Lab Results 07/20/24 07/20/24 07/20/24 Range/Units 16:41 16:41 16:41 WBC 7.2 (4.5-10.0) K/mm3 RBC 4.39 L (4.6-6.20) M/mm3 Hgb 13.9 L (14.0-18.0) g/dL Hct 41.3 L (42.0-52.0) % MCV 94.1 (80-100) fl MCH 31.7 (26-34) pg MCHC 33.7 (32-36) g/dl RDW 15.4 H (11.5-14.5) % Plt Count 323 (150-375) k/mm3 MPV 9.0 (7.4-10.4) fl Immature Gran % (Auto) 0.3 (0-0.5) % Neut % (Auto) 70.8 (45.5-73.1) % Lymph % (Auto) 18.1 L (18.3-44.2) % Divide % (Auto) 8.3 (2.6-8.5) % Eos % (Auto) 1.9 (0-4.4) % Baso % (Auto) 0.6 (0.2-1.2) % Lymph # (Auto) 1.31 (0.9-3.2) K/mm3 Divide # (Auto) 0.6 (0.1-0.6) K/mm3 Eos # (Auto) 0.1 (0-0.3) K/mm3 Baso # (Auto) 0.0 (0.0-0.1) K/mm3 Abs Immat Gran (auto) 0.02 (0.00-0.031) K/mm3 Absolute Neuts (auto) 5.1 (1.3-6.7) K/mm3 Absolute Nucleated RBC 0.000 (0.0-0.012) K/mm3 Nucleated RBC % 0.0 (0.0-0.2) % PT 12.7 (11.1-14.7) Seconds INR 0.9 APTT 24.2 (22.3-36.8) Seconds Sodium Cancelled 136 L Potassium Cancelled 4.4 Chloride Cancelled Carbon Dioxide Anion Gap BUN Creatinine Estim Creat Clear Calc Estimated GFR Glucose Calcium Total Bilirubin AST ALT Alkaline Phosphatase Troponin I (0.000-0.034) ng/mL NT-Pro-B Natriuret Pep Total Protein Albumin Urine Color (Yellow) Urine Appearance (Clear) Urine pH (5.0-9.0) Ur Specific Bluebell (1.001-1.035) Urine Protein (Negative) mg/dL Urine Glucose (UA) (Negative) mg/dL Urine Ketones (Negative) mg/dL Ur Blood (Man) (Negative) Urine Nitrate (Negative) Urine Bilirubin (Negative) Urine Urobilinogen (<2.0) mg/dL Leukocyte Esterase Rfl (Negative) GRACE/UL Urine RBC (0-2) /hpf Urine WBC (0-3) /hpf Ur Squamous Epith Cells (Few) /hpf Urine Bacteria /hpf Urine Casts 07/20/24 07/20/24 07/20/24 Range/Units 16:41 16:41 16:41 WBC (4.5-10.0) K/mm3 RBC (4.6-6.20) M/mm3 Hgb (14.0-18.0) g/dL Hct (42.0-52.0) % MCV (80-100) fl MCH (26-34) pg MCHC (32-36) g/dl RDW (11.5-14.5) % Plt Count (150-375) k/mm3 MPV (7.4-10.4) fl Immature Gran % (Auto) (0-0.5) % Neut % (Auto) (45.5-73.1) % Lymph % (Auto) (18.3-44.2) % Divide % (Auto) (2.6-8.5) % Eos % (Auto) (0-4.4) % Baso % (Auto) (0.2-1.2) % Lymph # (Auto) (0.9-3.2) K/mm3 Divide # (Auto) (0.1-0.6) K/mm3 Eos # (Auto) (0-0.3) K/mm3 Baso # (Auto) (0.0-0.1) K/mm3 Abs Immat Gran (auto) (0.00-0.031) K/mm3 Absolute Neuts (auto) (1.3-6.7) K/mm3 Absolute Nucleated RBC (0.0-0.012) K/mm3 Nucleated RBC % (0.0-0.2) % PT (11.1-14.7) Seconds INR APTT (22.3-36.8) Seconds Sodium Potassium Chloride 107 Carbon Dioxide Cancelled 24 Anion Gap Cancelled 5 BUN Cancelled Creatinine Estim Creat Clear Calc Estimated GFR Glucose Calcium Total Bilirubin AST ALT Alkaline Phosphatase Troponin I (0.000-0.034) ng/mL NT-Pro-B Natriuret Pep Total Protein Albumin Urine Color (Yellow) Urine Appearance (Clear) Urine pH (5.0-9.0) Ur Specific Bluebell (1.001-1.035) Urine Protein (Negative) mg/dL Urine Glucose (UA) (Negative) mg/dL Urine Ketones (Negative) mg/dL Ur Blood (Man) (Negative) Urine Nitrate (Negative) Urine Bilirubin (Negative) Urine Urobilinogen (<2.0) mg/dL Leukocyte Esterase Rfl (Negative) GRACE/UL Urine RBC (0-2) /hpf Urine WBC (0-3) /hpf Ur Squamous Epith Cells (Few) /hpf Urine Bacteria /hpf Urine Casts 07/20/24 07/20/24 07/20/24 Range/Units 16:41 16:41 16:41 WBC (4.5-10.0) K/mm3 RBC (4.6-6.20) M/mm3 Hgb (14.0-18.0) g/dL Hct (42.0-52.0) % MCV (80-100) fl MCH (26-34) pg MCHC (32-36) g/dl RDW (11.5-14.5) % Plt Count (150-375) k/mm3 MPV (7.4-10.4) fl Immature Gran % (Auto) (0-0.5) % Neut % (Auto) (45.5-73.1) % Lymph % (Auto) (18.3-44.2) % Divide % (Auto) (2.6-8.5) % Eos % (Auto) (0-4.4) % Baso % (Auto) (0.2-1.2) % Lymph # (Auto) (0.9-3.2) K/mm3 Divide # (Auto) (0.1-0.6) K/mm3 Eos # (Auto) (0-0.3) K/mm3 Baso # (Auto) (0.0-0.1) K/mm3 Abs Immat Gran (auto) (0.00-0.031) K/mm3 Absolute Neuts (auto) (1.3-6.7) K/mm3 Absolute Nucleated RBC (0.0-0.012) K/mm3 Nucleated RBC % (0.0-0.2) % PT (11.1-14.7) Seconds INR APTT (22.3-36.8) Seconds Sodium Potassium Chloride Carbon Dioxide Anion Gap BUN 22 H Creatinine Cancelled 0.70 Estim Creat Clear Calc Cancelled 56 Estimated GFR Cancelled Glucose Calcium Total Bilirubin AST ALT Alkaline Phosphatase Troponin I (0.000-0.034) ng/mL NT-Pro-B Natriuret Pep Total Protein Albumin Urine Color (Yellow) Urine Appearance (Clear) Urine pH (5.0-9.0) Ur Specific Bluebell (1.001-1.035) Urine Protein (Negative) mg/dL Urine Glucose (UA) (Negative) mg/dL Urine Ketones (Negative) mg/dL Ur Blood (Man) (Negative) Urine Nitrate (Negative) Urine Bilirubin (Negative) Urine Urobilinogen (<2.0) mg/dL Leukocyte Esterase Rfl (Negative) GRACE/UL Urine RBC (0-2) /hpf Urine WBC (0-3) /hpf Ur Squamous Epith Cells (Few) /hpf Urine Bacteria /hpf Urine Casts 07/20/24 07/20/24 07/20/24 Range/Units 16:41 16:41 16:41 WBC (4.5-10.0) K/mm3 RBC (4.6-6.20) M/mm3 Hgb (14.0-18.0) g/dL Hct (42.0-52.0) % MCV (80-100) fl MCH (26-34) pg MCHC (32-36) g/dl RDW (11.5-14.5) % Plt Count (150-375) k/mm3 MPV (7.4-10.4) fl Immature Gran % (Auto) (0-0.5) % Neut % (Auto) (45.5-73.1) % Lymph % (Auto) (18.3-44.2) % Divide % (Auto) (2.6-8.5) % Eos % (Auto) (0-4.4) % Baso % (Auto) (0.2-1.2) % Lymph # (Auto) (0.9-3.2) K/mm3 Divide # (Auto) (0.1-0.6) K/mm3 Eos # (Auto) (0-0.3) K/mm3 Baso # (Auto) (0.0-0.1) K/mm3 Abs Immat Gran (auto) (0.00-0.031) K/mm3 Absolute Neuts (auto) (1.3-6.7) K/mm3 Absolute Nucleated RBC (0.0-0.012) K/mm3 Nucleated RBC % (0.0-0.2) % PT (11.1-14.7) Seconds INR APTT (22.3-36.8) Seconds Sodium Potassium Chloride Carbon Dioxide Anion Gap BUN Creatinine Estim Creat Clear Calc Estimated GFR > 60 Glucose Cancelled 100 Calcium Cancelled 9.0 Total Bilirubin Cancelled AST ALT Alkaline Phosphatase Troponin I (0.000-0.034) ng/mL NT-Pro-B Natriuret Pep Total Protein Albumin Urine Color (Yellow) Urine Appearance (Clear) Urine pH (5.0-9.0) Ur Specific Bluebell (1.001-1.035) Urine Protein (Negative) mg/dL Urine Glucose (UA) (Negative) mg/dL Urine Ketones (Negative) mg/dL Ur Blood (Man) (Negative) Urine Nitrate (Negative) Urine Bilirubin (Negative) Urine Urobilinogen (<2.0) mg/dL Leukocyte Esterase Rfl (Negative) GRACE/UL Urine RBC (0-2) /hpf Urine WBC (0-3) /hpf Ur Squamous Epith Cells (Few) /hpf Urine Bacteria /hpf Urine Casts 07/20/24 07/20/24 07/20/24 Range/Units 16:41 16:41 16:41 WBC (4.5-10.0) K/mm3 RBC (4.6-6.20) M/mm3 Hgb (14.0-18.0) g/dL Hct (42.0-52.0) % MCV (80-100) fl MCH (26-34) pg MCHC (32-36) g/dl RDW (11.5-14.5) % Plt Count (150-375) k/mm3 MPV (7.4-10.4) fl Immature Gran % (Auto) (0-0.5) % Neut % (Auto) (45.5-73.1) % Lymph % (Auto) (18.3-44.2) % Divide % (Auto) (2.6-8.5) % Eos % (Auto) (0-4.4) % Baso % (Auto) (0.2-1.2) % Lymph # (Auto) (0.9-3.2) K/mm3 Divide # (Auto) (0.1-0.6) K/mm3 Eos # (Auto) (0-0.3) K/mm3 Baso # (Auto) (0.0-0.1) K/mm3 Abs Immat Gran (auto) (0.00-0.031) K/mm3 Absolute Neuts (auto) (1.3-6.7) K/mm3 Absolute Nucleated RBC (0.0-0.012) K/mm3 Nucleated RBC % (0.0-0.2) % PT (11.1-14.7) Seconds INR APTT (22.3-36.8) Seconds Sodium Potassium Chloride Carbon Dioxide Anion Gap BUN Creatinine Estim Creat Clear Calc Estimated GFR Glucose Calcium Total Bilirubin 0.7 AST Cancelled 30 ALT Cancelled 23 Alkaline Phosphatase Cancelled Troponin I (0.000-0.034) ng/mL NT-Pro-B Natriuret Pep Total Protein Albumin Urine Color (Yellow) Urine Appearance (Clear) Urine pH (5.0-9.0) Ur Specific Bluebell (1.001-1.035) Urine Protein (Negative) mg/dL Urine Glucose (UA) (Negative) mg/dL Urine Ketones (Negative) mg/dL Ur Blood (Man) (Negative) Urine Nitrate (Negative) Urine Bilirubin (Negative) Urine Urobilinogen (<2.0) mg/dL Leukocyte Esterase Rfl (Negative) GRACE/UL Urine RBC (0-2) /hpf Urine WBC (0-3) /hpf Ur Squamous Epith Cells (Few) /hpf Urine Bacteria /hpf Urine Casts 07/20/24 07/20/24 07/20/24 Range/Units 16:41 16:41 16:41 WBC (4.5-10.0) K/mm3 RBC (4.6-6.20) M/mm3 Hgb (14.0-18.0) g/dL Hct (42.0-52.0) % MCV (80-100) fl MCH (26-34) pg MCHC (32-36) g/dl RDW (11.5-14.5) % Plt Count (150-375) k/mm3 MPV (7.4-10.4) fl Immature Gran % (Auto) (0-0.5) % Neut % (Auto) (45.5-73.1) % Lymph % (Auto) (18.3-44.2) % Divide % (Auto) (2.6-8.5) % Eos % (Auto) (0-4.4) % Baso % (Auto) (0.2-1.2) % Lymph # (Auto) (0.9-3.2) K/mm3 Divide # (Auto) (0.1-0.6) K/mm3 Eos # (Auto) (0-0.3) K/mm3 Baso # (Auto) (0.0-0.1) K/mm3 Abs Immat Gran (auto) (0.00-0.031) K/mm3 Absolute Neuts (auto) (1.3-6.7) K/mm3 Absolute Nucleated RBC (0.0-0.012) K/mm3 Nucleated RBC % (0.0-0.2) % PT (11.1-14.7) Seconds INR APTT (22.3-36.8) Seconds Sodium Potassium Chloride Carbon Dioxide Anion Gap BUN Creatinine Estim Creat Clear Calc Estimated GFR Glucose Calcium Total Bilirubin AST ALT Alkaline Phosphatase 90 Troponin I < 0.012 (0.000-0.034) ng/mL NT-Pro-B Natriuret Pep Cancelled 3740 H Total Protein Cancelled 7.0 Albumin Cancelled Urine Color (Yellow) Urine Appearance (Clear) Urine pH (5.0-9.0) Ur Specific Bluebell (1.001-1.035) Urine Protein (Negative) mg/dL Urine Glucose (UA) (Negative) mg/dL Urine Ketones (Negative) mg/dL Ur Blood (Man) (Negative) Urine Nitrate (Negative) Urine Bilirubin (Negative) Urine Urobilinogen (<2.0) mg/dL Leukocyte Esterase Rfl (Negative) GRACE/UL Urine RBC (0-2) /hpf Urine WBC (0-3) /hpf Ur Squamous Epith Cells (Few) /hpf Urine Bacteria /hpf Urine Casts 07/20/24 07/20/24 Range/Units 16:41 19:24 WBC (4.5-10.0) K/mm3 RBC (4.6-6.20) M/mm3 Hgb (14.0-18.0) g/dL Hct (42.0-52.0) % MCV (80-100) fl MCH (26-34) pg MCHC (32-36) g/dl RDW (11.5-14.5) % Plt Count (150-375) k/mm3 MPV (7.4-10.4) fl Immature Gran % (Auto) (0-0.5) % Neut % (Auto) (45.5-73.1) % Lymph % (Auto) (18.3-44.2) % Divide % (Auto) (2.6-8.5) % Eos % (Auto) (0-4.4) % Baso % (Auto) (0.2-1.2) % Lymph # (Auto) (0.9-3.2) K/mm3 Divide # (Auto) (0.1-0.6) K/mm3 Eos # (Auto) (0-0.3) K/mm3 Baso # (Auto) (0.0-0.1) K/mm3 Abs Immat Gran (auto) (0.00-0.031) K/mm3 Absolute Neuts (auto) (1.3-6.7) K/mm3 Absolute Nucleated RBC (0.0-0.012) K/mm3 Nucleated RBC % (0.0-0.2) % PT (11.1-14.7) Seconds INR APTT (22.3-36.8) Seconds Sodium Potassium Chloride Carbon Dioxide Anion Gap BUN Creatinine Estim Creat Clear Calc Estimated GFR Glucose Calcium Total Bilirubin AST ALT Alkaline Phosphatase Troponin I < 0.012 (0.000-0.034) ng/mL NT-Pro-B Natriuret Pep Total Protein Albumin 4.2 Urine Color Yellow (Yellow) Urine Appearance Clear (Clear) Urine pH 6.0 (5.0-9.0) Ur Specific Bluebell 1.007 (1.001-1.035) Urine Protein Negative (Negative) mg/dL Urine Glucose (UA) Negative (Negative) mg/dL Urine Ketones Negative (Negative) mg/dL Ur Blood (Man) Non-hemolyzed trace (Negative) Urine Nitrate Negative (Negative) Urine Bilirubin Negative (Negative) Urine Urobilinogen 0.2 (<2.0) mg/dL Leukocyte Esterase Rfl Negative (Negative) GRACE/UL Urine RBC 0-2 (0-2) /hpf Urine WBC 0-5 (0-3) /hpf Ur Squamous Epith Cells None seen (Few) /hpf Urine Bacteria None seen /hpf Urine Casts 0-2 Imaging Data Radiologist's impression: Impressions Chest X-Ray 07/20/24 17:14 IMPRESSION: 1. Mild streaky left basilar atelectasis. No other acute cardiopulmonary disease. Scrotum Ultrasound 07/20/24 17:37 IMPRESSION: Left testicular cyst. The right epididymal cyst. Left varicocele. Otherwise, normal testicular ultrasound. ECG Data EKG #1: Attestation: I personally reviewed and interpreted this ECG as follows: Prior ECG tracings: not available for review Interpretation: ATRIAL FIBRILLATION WITH RVR AT 140 BEATS PER MINUTE, INFERIOR INFARCT, AGE INDETERMINATE, BORDERLINE ST T-WAVE ABNORMALITY, ABNORMAL EKG, NO PREVIOUS EKG AVAILABLE FOR COMPARISON EKG #2: Attestation: I personally reviewed and interpreted this ECG as follows: ECG completion date: 07/20/24 Prior ECG tracings: available for review Interpretation: AFIB WITH RVR AT 117 BEATS PER MINUTE, LOW QRS VOLTAGE IN LIMB LEADS, BORDERLINE ST T-WAVE ABNORMALITY-DIFFUSELY, ABNORMAL EKG, COMPARED TO EKG THE 1 WE HAVE EARLIER TODAY HEART RATE HAS DECREASED Critical Care Time Critical Care Time Critical Care Time: Yes Total Critical Care Time: 30 Discharge Plan Discharge Clinical Impression: Cyst of testis, Atrial fibrillation with rapid ventricular response Patient Disposition: Still a Patient Condition: Stable
[2024-07-20] MEDS: dilTIAZem HCl INJ 25 MG/5 ML VIAL 10 MG IV PUSH (16:43)
[2024-07-20] MEDS: dilTIAZem 100 MG/100 ML 100 MG/100 ML BAG IV CONT ×2 (16:44→23:39)
[2024-07-20 16:52] LABS: Basophils Percent Auto 0.6 % (0.2-1.2); Eosinophils Absolute Auto 0.1 K/mm3 (0-0.3); Eosinophils Percent Auto 1.9 % (0-4.4); Hematocrit 41.3 % (42.0-52.0); Hemoglobin 13.9 g/dL (14.0-18.0); Immature Granulocyte Absolute 0.02 K/mm3 (0.00-0.031); Immature Granulocyte Percent A 0.3 % (0-0.5); Lymphocytes Absolute Auto 1.31 K/mm3 (0.9-3.2); Lymphocytes Percent Auto 18.1 % (18.3-44.2); Mean Corpuscular HGB Conc 33.7 g/dl (32-36); Mean Corpuscular Hemoglobin 31.7 pg (26-34); Mean Corpuscular Volume 94.1 fl (80-100); Monocytes Absolute Auto 0.6 K/mm3 (0.1-0.6); Monocytes Percent Auto 8.3 % (2.6-8.5); Neutrophils Absolute Auto 5.1 K/mm3 (1.3-6.7); Neutrophils Percent Auto 70.8 % (45.5-73.1); Platelet Count Result 323 k/mm3 (150-375); Red Blood Count 4.39 M/mm3 (4.6-6.20); Red Cell Distribution Width 15.4 % (11.5-14.5); White Blood Count 7.2 K/mm3 (4.5-10.0)
[2024-07-20 17:02] LABS: Alanine Aminotransferase 23 U/L (6-50); Albumin Level 4.2 g/dL (3.5-5.1); Alkaline Phosphatase 90 U/L (38-126); Anion Gap 5 mmol/L (4-12); Aspartate Amino Transferase 30 U/L (17-59); Bilirubin,Total 0.7 mg/dL (0.2-1.3); Blood Urea Nitrogen 22 mg/dL (9-20); Carbon Dioxide 24 mmol/L (22-30); Chloride 107 mmol/L (98-107); Estimated CRCL calculation 56 ml/min; Estimated Glomerular Filt Rate > 60; Glucose 100 mg/dL (65-110); Potassium 4.4 mmol/L (3.4-5.0); Sodium 136 mmol/L (137-145)
[2024-07-20 17:03] LABS: INR 0.9; Prothrombin Time 12.7 Seconds (11.1-14.7)
[2024-07-20 17:04] LABS: Partial Thromboplastin Time 24.2 Seconds (22.3-36.8)
[2024-07-20 17:06] LABS: Add Urine Microscopic? NO; Appearance Urine Clear (Clear); Bacteria Urine None Seen /hpf; Bilirubin Urine Negative (Negative); Blood Urine Non-Hemolyzed Trace (Negative); Color Urine Yellow (Yellow); Glucose Urine UA Negative (Negative); Ketones Urine Negative (Negative); Leukocyte Esterase Ur Negative LEU/UL (Negative); Nitrate Urine Negative (Negative); Non Pathogenic Casts 0-2; Protein Urine Negative (Negative); RBC Urine 0-2 /hpf (0-2); Specific Grav Ur 1.007 (1.001-1.035); Squamous Epithelial Cell Urine None Seen /hpf (Few); Urobilinogen Urine 0.2 mg/dL (<2.0); WBC Urine 0-5 /hpf (0-3)
[2024-07-20 17:13] LABS: NT Pro B Type Natriuretic Pept 3740 pg/mL (19.9-100); Troponin I < 0.012 ng/mL (0.000-0.034)
[2024-07-20] MEDS: ENOXAPARIN 80 MG/0.8 ML SYRINGE 70 MG SUB-Q (18:38)
--- NOTE | 2024-07-20 19:27 | PM.IMHP ---
H&P: HPI History of Present Illness Date/Time: 07/20/24 19:27 Chief Complaint: Testicular Pain Narrative: 84 y/o M presents here with left testicular pain with PMH of The patient presents here from a local urgent care for further evaluation of left testicular pain. He reports onset of testicular pain XX days ago. Pain is accompanied by XX. Denies fever, chills, nausea, vomiting, abdominal pain, XX. Initial VS at presentation: ED workup showed: [facility] Past Medical History Medical History ASHD (arteriosclerotic heart disease) CAD (coronary artery disease) COVID Essential (primary) hypertension Gastro-esophageal reflux disease without esophagitis Glaucoma History of prostate cancer Left foot drop Lumbar spinal stenosis Mixed hyperlipidemia Osteoporosis Prostate cancer 2021 Radiation proctitis Seborrheic keratosis Surgical History Surgical History History of coronary artery stent placement x2, 1999 History of eye surgery left eye History of shoulder replacement right Status post total replacement of left shoulder Family History Family History Father Family history of heart disease in male family member before age 55, Onset Age: 58 Hypertension Acute myocardial infarction Heart disease Mother Bladder cancer Cerebrovascular accident Sibling , 2021 Liver cancer, primary, with metastasis from liver to other site sister Social History Social History Smoking status: Never smoker Second hand tobacco smoke exposure: No Alcohol intake: current Alcohol use details: occasionally Substance use: never Substance use type: does not use Lack of Transportation: No Lack of Food: Never True Current Housing: I Have Housing Concerned About Future Housing: No Difficulty Paying Gas/Electric Bills: No Difficulty Paying for Meds: No Currently Unemployed: No Education: Trade/Vocational Certificate Difficulty w/ Childcare or Family Care: No Living arrangements: with family Occupation/Education: retired Gender identity (if verbalized by the patient): Male Spiritual care concerns: No Meds Home Medications and Allergies Home Medications Medication Instructions Recorded Confirmed Type aspirin 81 mg tablet,delayed 81 mg PO DAILY 11/14/20 02/11/24 History release latanoprost 0.005 % eye drops 1 drp EACH EYE DAILY 11/14/20 02/11/24 History multivitamin (Multiple Vitamins 1 tablet PO DAILY 11/14/20 02/11/24 History tablet) cholecalciferol (vitamin D3) 10 10 mcg PO DAILY 11/19/21 02/11/24 History mcg (400 unit) tablet vit C 250 mg-vit E 90 mg-zinc 40 1 tablet PO BID 11/19/21 02/11/24 History mg-copper 1 [id number]-[id number] capsule (PreserVision AREDS-2) krill 300 mg-omega 3 90 mg-dha 24 1 cap PO DAILY 02/02/23 02/11/24 History mg-epa 50 [id number]-cihoa capsule (MegaRed [place]-3 Krill Oil) calcium carbonate 500 mg PO BID #360 tabs 01/05/24 02/11/24 Rx methocarbamol 500 mg tablet 500 mg PO BID PRN muscle pain #30 02/11/24 02/11/24 Rx tabs alendronate 35 mg tablet 35 mg PO WEEKLY #12 tabs 04/20/24 Rx metoprolol tartrate 25 mg tablet See Rx Instructions .Route 06/20/24 Rx .COMPLEX #180 tabs lisinopril 20 mg tablet See Rx Instructions .Route 07/07/24 Rx .COMPLEX #90 tabs amlodipine 10 mg tablet See Rx Instructions .Route 07/19/24 Rx .COMPLEX #90 tabs atorvastatin 40 mg tablet See Rx Instructions .Route 07/19/24 Rx .COMPLEX #90 tabs Allergies Allergy/AdvReac Type Severity Reaction Status Date / Time ioversol Allergy Severe Itching Verified 07/20/24 15:26 iodine Allergy Unknown ITCHING Verified 07/20/24 15:26 WITH IV CONTRAST--NO PROBLEM WITH TOPICAL IODINE Vital Signs Vital Signs - 24 hr 07/20/24 16:22 07/20/24 16:44 07/20/24 16:46 Temperature 97.7 F Pulse Rate 140 H 136 H 133 H Respiratory Rate 15 Blood Pressure 141/95 H 138/84 Pulse Oximetry 99 Oxygen Delivery Room Air 07/20/24 16:45 07/20/24 17:24 07/20/24 16:46 Temperature Pulse Rate 122 H 126 H 102 H Respiratory Rate 15 20 Blood Pressure 127/86 Pulse Oximetry 98 100 Oxygen Delivery 07/20/24 17:54 07/20/24 18:01 Temperature Pulse Rate 123 H 92 Respiratory Rate 15 14 Blood Pressure 122/66 121/75 Pulse Oximetry 99 98 Oxygen Delivery H&P: Results Labs Labs: Short CBC 07/20/24 Range/Units 16:41 WBC 7.2 (4.5-10.0) K/mm3 Hgb 13.9 L (14.0-18.0) g/dL Hct 41.3 L (42.0-52.0) % Plt Count 323 (150-375) k/mm3 BMP 07/20/24 07/20/24 07/20/24 16:41 16:41 16:41 Sodium Cancelled 136 L Potassium Cancelled 4.4 Chloride Cancelled Carbon Dioxide BUN Creatinine Glucose Calcium 07/20/24 07/20/24 07/20/24 16:41 16:41 16:41 Sodium Potassium Chloride 107 Carbon Dioxide Cancelled 24 BUN Cancelled 22 H Creatinine Cancelled Glucose Calcium 07/20/24 07/20/24 07/20/24 16:41 16:41 16:41 Sodium Potassium Chloride Carbon Dioxide BUN Creatinine 0.70 Glucose Cancelled 100 Calcium Cancelled 9.0 Cardiac Enzymes 07/20/24 Range/Units 16:41 Troponin I < 0.012 (0.000-0.034) ng/mL Liver Function 07/20/24 07/20/24 07/20/24 Range/Units 16:41 16:41 16:41 Total Bilirubin Cancelled 0.7 AST Cancelled 30 ALT Cancelled Alkaline Phosphatase Albumin 07/20/24 07/20/24 07/20/24 Range/Units 16:41 16:41 16:41 Total Bilirubin AST ALT 23 Alkaline Phosphatase Cancelled 90 Albumin Cancelled 4.2 Urine 07/20/24 Range/Units 16:41 Urine Color Yellow (Yellow) Urine Appearance Clear (Clear) Urine pH 6.0 (5.0-9.0) Ur Specific [place] 1.007 (1.001-1.035) Urine Protein Negative (Negative) mg/dL Urine Glucose (UA) Negative (Negative) mg/dL
--- NOTE | 2024-07-20 19:32 | ECG_ITS ---
Test Date: 2024-07-20 19:24:10 Measurements Intervals [place] Rate: 98 P: 0 PA: 0 QRS: 199 QRSD: 74 T: 192 QT: 324 QTc: 415 Interpretive Statements ATRIAL FIBRILLATION LIMB LEAD REVERSAL EARLY PRECORDIAL R/S TRANSITION CONSIDER INFERIOR INFARCT, AGE INDETERMINATE BASELINE ARTIFACT- I, II, III, AVR, AVL, AVF ABNORMAL ECG Compared to ECG 07/20/2024 16:29:34 HEART RATE HAS DECREASED Electronically Signed On 07-21-2024 07:23:35 PEANUT CLEANER by Silverio Urias D.O.
[2024-07-20 19:50] LABS: Troponin I < 0.012 ng/mL (0.000-0.034)
--- NOTE | 2024-07-20 21:34 | ADMGEN ---
This patient, Khoa Philippe, was admitted to IMU Room 206-02. Patient/family oriented to hospital policies and general routines including ID bracelet, bed and alarms, visiting hours, pain management, procedures, bathroom and other care routines, personal items, smoking policy, room service/diet, and visiting hours. Information on how to activate the Rapid Response Team has been discussed. Patient/Family are encouraged to report perceived risks to care and to ask questions if they do not understand what they are told or what they should do.
[2024-07-20] MEDS: ACETAMINOPHEN 325 MG TABLET 650 MG PO (21:42)
[2024-07-20] MEDS: dilTIAZem 100 MG/100 ML 100 MG/100 ML BAG 10 MG IV CONT (21:56)
--- NOTE | 2024-07-20 22:50 | P.HP_ITS ---
H&P: HPI History of Present Illness Date/Time: 07/20/24 22:50 Chief Complaint: Left testicular pain, ?urgent care provider did not like the way my heart sounded? Narrative: 84-year-old male with a past medical history of coronary disease status post 2 stents, obstructive sleep apnea, prostate cancer status post TURP hyperlipidemia and glaucoma who presented to the ER from urgent care with complaint of with ngoc ticular pain and incidental finding of AFib RVR. Patient went for evaluation of left testicular pain to urgent care. Incidentally was found that he was in AFib with heart rate up into the 140s. Initial EKG had urgent care had heart rate of 1 teens. Patient denied any symptoms of palpitations. Troponins were negative x2 in the ER. Repeat EKG initially demonstrated heart rate 140. Patient rec eived 1 dose of IV push Cardizem 10 mg followed by Cardizem drip at 5. Repeat EKG demonstrated AFib with rate of 98. The patient reports that he follows with Dr. Brown as outpatient. He had a relatively recent stress test that was negative. He reported he was having the stress test because he was not feeling quite right. He reports that in hindsight he has been having some increased weakness and fatigue on exertion. He does work out once a week on the treadmill at [employer]. He reports that last week he was out hunting deer in [facility]. He reported that while he was going to town is when he started having the left testicular pain. He did not injuries testicles does not remember straining or lifting anything. He has not had any erythema or edema. He had a scrotal ultrasound performed in the ER which demonstrated left testicular cyst and right epididymal cyst with left variceal. He denies any hematuria or penile discharge. He does follow with Dr. Ivan regarding his prostate cancer. He reported that his most recent INSPECTOR PLUG SEAM was within the last couple of months and was not remarkable. Review of Systems Review of Systems: 12 systems were reviewed with pertinent positives and negatives per HPI. Except as documented in the HPI, all other systems were reviewed and are negative. [facility] Past Medical History Medical History CAD (coronary artery disease) With angioplasty and 2 stents in 1999 COVID Essential (primary) hypertension Gastro-esophageal reflux disease without esophagitis Glaucoma History of prostate cancer Kidney stones (~2000) Left foot drop Lumbar spinal stenosis Mixed hyperlipidemia Osteoporosis Prostate cancer 2021 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) 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 bleeding Seborrheic keratosis Sleep apnea With recommended CPAP of pressure 13 on polysomnogram 2011 Vitamin D deficiency Surgical History Surgical History (Updated 07/20/24 @ 21:08 by Anitra Gibson DO) History of coronary artery stent placement x2, 1999 History of eye surgery left eye retinal surgery Status post cataract extraction of both eyes with insertion of intraocular lens Status post total replacement of left shoulder Status post total replacement of right shoulder Family History Family History Father Family history of heart disease in male family member before age 55, Onset Age: 58 Hypertension Acute myocardial infarction Heart disease Mother Bladder cancer Cerebrovascular accident Sibling , 2021 Liver cancer, primary, with metastasis from liver to other site sister Social History Social History (Updated 07/21/24 @ 07:35 by Anitra Gibson DO) Social History: He has been for 63 years. He and his raised 1 daughter and 1 son. 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 He drinks 1 glass of wine couple of times a month. He is a lifelong nonsmoker and denies history of illicit substance use. He works out at least once a week at [employer] usually on the treadmill. Code status: Full code Surrogate decision maker: Smoking status: Never smoker Second hand tobacco smoke exposure: No Alcohol intake: never Alcohol use details: occasionally Substance use: never Substance use type: does not use Do You Feel Safe in your Home?: Yes Lack of Transportation: No Lack of Food: Never True Current Housing: I Have Housing Concerned About Future Housing: No Difficulty Paying Gas/Electric Bills: No Difficulty Paying for Meds: No Currently Unemployed: No Education: Trade/Vocational Certificate Difficulty w/ Childcare or Family Care: No Living arrangements: with family Occupation/Education: retired Gender identity (if verbalized by the patient): Male Spiritual care concerns: No Meds Home Medications and Allergies Home Medications Medication Instructions Recorded Confirmed Type aspirin 81 mg tablet,delayed 81 mg PO DAILY 11/14/20 07/20/24 History release latanoprost 0.005 % eye drops 1 drp EACH EYE HS 11/14/20 07/20/24 History multivitamin (Multiple Vitamins 1 tablet PO DAILY 11/14/20 07/20/24 History tablet) cholecalciferol (vitamin D3) 10 10 mcg PO DAILY 11/19/21 07/20/24 History mcg (400 unit) tablet vit C 250 mg-vit E 90 mg-zinc 40 1 tablet PO BID 11/19/21 07/20/24 History mg-copper 1 [id number]-udmqjt-xjargu capsule (PreserVision AREDS-2) krill 300 mg-omega 3 90 mg-dha 24 1 cap PO DAILY 02/02/23 07/20/24 History mg-epa 50 ay-yqbywsl-fffqk capsule (MegaRed [place]-3 Krill Oil) alendronate 35 mg tablet 35 mg PO WEEKLY #12 tabs 04/20/24 07/20/24 Rx amlodipine 10 mg tablet 10 mg PO DAILY 07/20/24 07/20/24 History atorvastatin 40 mg tablet 40 mg PO HS 07/20/24 07/20/24 History calcium carbonate 500 mg PO BID PRN Indigestion 07/20/24 07/20/24 History lisinopril 20 mg tablet 20 mg PO DAILY 07/20/24 07/20/24 History metoprolol tartrate 25 mg tablet 25 mg PO BID 07/20/24 07/20/24 History Allergies Allergy/AdvReac Type Severity Reaction Status Date / Time ioversol Allergy Severe Itching Verified 07/20/24 21:40 iodine Allergy Unknown ITCHING Verified 07/20/24 21:40 WITH IV CONTRAST--NO PROBLEM WITH TOPICAL IODINE Vital Signs Vital Signs - 24 hr 07/20/24 16:22 07/20/24 16:44 07/20/24 16:46 Temperature 97.7 F Pulse Rate 140 H 136 H 133 H Respiratory Rate 15 Blood Pressure 141/95 H 138/84 Pulse Oximetry 99 Oxygen Delivery Room Air 07/20/24 16:45 07/20/24 17:24 07/20/24 16:46 Temperature Pulse Rate 122 H 126 H 102 H Respiratory Rate 15 20 Blood Pressure 127/86 Pulse Oximetry 98 100 Oxygen Delivery 07/20/24 17:54 07/20/24 18:01 07/20/24 19:49 Temperature Pulse Rate 123 H 92 89 Respiratory Rate 15 14 Blood Pressure 122/66 121/75 Pulse Oximetry 99 98 Oxygen Delivery 07/20/24 19:49 Temperature Pulse Rate 92 Respiratory Rate 16 Blood Pressure 114/76 Pulse Oximetry 97 Oxygen Delivery Exam Narrative: Weight 71.5 kg BMI 30.8 Const: Other: No acute distress, well-developed well-nourished, appears stated age HENMT: Other: Mucous membranes are moist, no oral pharyngeal erythema, head is normocephalic atraumatic Eyes: Other: Pupils are equal and reactive, no scleral icterus, no conjunctival pallor Neck: Other: No JVD, no lymphadenopathy, no thyromegaly Resp: Other: Clear to auscultation bilaterally, no increased work of breathing H&P: Results Labs Labs: Laboratory Tests 07/20/24 16:41 07/20/24 16:41 07/20/24 07/20/24 07/20/24 16:41 16:41 16:41 WBC 7.2 RBC 4.39 L Hgb 13.9 L Hct 41.3 L MCV 94.1 MCH 31.7 MCHC 33.7 RDW 15.4 H Plt Count 323 MPV 9.0 Immature Gran % (Auto) 0.3 Neut % (Auto) 70.8 Lymph % (Auto) 18.1 L [place] % (Auto) 8.3 Eos % (Auto) 1.9 Baso % (Auto) 0.6 Lymph # (Auto) 1.31 [place] # (Auto) 0.6 Eos # (Auto) 0.1 Baso # (Auto) 0.0 Abs Immat Gran (auto) 0.02 Absolute Neuts (auto) 5.1 Absolute Nucleated RBC 0.000 Nucleated RBC % 0.0 PT 12.7 INR 0.9 APTT 24.2 Sodium Cancelled 136 L Potassium Cancelled 4.4 Chloride Cancelled Carbon Dioxide Anion Gap BUN Creatinine Estim Creat Clear Calc Estimated GFR Glucose Calcium Total Bilirubin AST ALT Alkaline Phosphatase Troponin I NT-Pro-B Natriuret Pep Total Protein Albumin Urine Color Urine Appearance Urine pH Ur Specific [place] Urine Protein Urine Glucose (UA) Urine Ketones Ur Blood (Man) Urine Nitrate Urine Bilirubin Urine Urobilinogen Leukocyte Esterase Rfl Urine RBC Urine WBC Ur Squamous Epith Cells Urine Bacteria Urine Casts 07/20/24 07/20/24 07/20/24 16:41 16:41 16:41 WBC RBC Hgb Hct MCV MCH MCHC RDW Plt Count MPV Immature Gran % (Auto) Neut % (Auto) Lymph % (Auto) [place] % (Auto) Eos % (Auto) Baso % (Auto) Lymph # (Auto) [place] # (Auto) Eos # (Auto) Baso # (Auto) Abs Immat Gran (auto) Absolute Neuts (auto) Absolute Nucleated RBC Nucleated RBC % PT INR APTT Sodium Potassium Chloride 107 Carbon Dioxide Cancelled 24 Anion Gap Cancelled 5 BUN Cancelled Creatinine Estim Creat Clear Calc Estimated GFR Glucose Calcium Total Bilirubin AST ALT Alkaline Phosphatase Troponin I NT-Pro-B Natriuret Pep Total Protein Albumin Urine Color Urine Appearance Urine pH Ur Specific [place] Urine Protein Urine Glucose (UA) Urine Ketones Ur Blood (Man) Urine Nitrate Urine Bilirubin Urine Urobilinogen Leukocyte Esterase Rfl Urine RBC Urine WBC Ur Squamous Epith Cells Urine Bacteria Urine Casts 07/20/24 07/20/24 07/20/24 16:41 16:41 16:41 WBC RBC Hgb Hct MCV MCH MCHC RDW Plt Count MPV Immature Gran % (Auto) Neut % (Auto) Lymph % (Auto) [place] % (Auto) Eos % (Auto) Baso % (Auto) Lymph # (Auto) [place] # (Auto) Eos # (Auto) Baso # (Auto) Abs Immat Gran (auto) Absolute Neuts (auto) Absolute Nucleated RBC Nucleated RBC % PT INR APTT Sodium Potassium Chloride Carbon Dioxide Anion Gap BUN 22 H Creatinine Cancelled 0.70 Estim Creat Clear Calc Cancelled 56 Estimated GFR Cancelled Glucose Calcium Total Bilirubin AST ALT Alkaline Phosphatase Troponin I NT-Pro-B Natriuret Pep Total Protein Albumin Urine Color Urine Appearance Urine pH Ur Specific [place] Urine Protein Urine Glucose (UA) Urine Ketones Ur Blood (Man) Urine Nitrate Urine Bilirubin Urine Urobilinogen Leukocyte Esterase Rfl Urine RBC Urine WBC Ur Squamous Epith Cells Urine Bacteria Urine Casts 07/20/24 07/20/24 07/20/24 16:41 16:41 16:41 WBC RBC Hgb Hct MCV MCH MCHC RDW Plt Count MPV Immature Gran % (Auto) Neut % (Auto) Lymph % (Auto) [place] % (Auto) Eos % (Auto) Baso % (Auto) Lymph # (Auto) [place] # (Auto) Eos # (Auto) Baso # (Auto) Abs Immat Gran (auto) Absolute Neuts (auto) Absolute Nucleated RBC Nucleated RBC % PT INR APTT Sodium Potassium Chloride Carbon Dioxide Anion Gap BUN Creatinine Estim Creat Clear Calc Estimated GFR > 60 Glucose Cancelled 100 Calcium Cancelled 9.0 Total Bilirubin Cancelled AST ALT Alkaline Phosphatase Troponin I NT-Pro-B Natriuret Pep Total Protein Albumin Urine Color Urine Appearance Urine pH Ur Specific [place] Urine Protein Urine Glucose (UA) Urine Ketones Ur Blood (Man) Urine Nitrate Urine Bilirubin Urine Urobilinogen Leukocyte Esterase Rfl Urine RBC Urine WBC Ur Squamous Epith Cells Urine Bacteria Urine Casts 07/20/24 07/20/24 07/20/24 16:41 16:41 16:41 WBC RBC Hgb Hct MCV MCH MCHC RDW Plt Count MPV Immature Gran % (Auto) Neut % (Auto) Lymph % (Auto) [place] % (Auto) Eos % (Auto) Baso % (Auto) Lymph # (Auto) [place] # (Auto) Eos # (Auto) Baso # (Auto) Abs Immat Gran (auto) Absolute Neuts (auto) Absolute Nucleated RBC Nucleated RBC % PT INR APTT Sodium Potassium Chloride Carbon Dioxide Anion Gap BUN Creatinine Estim Creat Clear Calc Estimated GFR Glucose Calcium Total Bilirubin 0.7 AST Cancelled 30 ALT Cancelled 23 Alkaline Phosphatase Cancelled Troponin I NT-Pro-B Natriuret Pep Total Protein Albumin Urine Color Urine Appearance Urine pH Ur Specific [place] Urine Protein Urine Glucose (UA) Urine Ketones Ur Blood (Man) Urine Nitrate Urine Bilirubin Urine Urobilinogen Leukocyte Esterase Rfl Urine RBC Urine WBC Ur Squamous Epith Cells Urine Bacteria Urine Casts 07/20/24 07/20/24 07/20/24 16:41 16:41 16:41 WBC RBC Hgb Hct MCV MCH MCHC RDW Plt Count MPV Immature Gran % (Auto) Neut % (Auto) Lymph % (Auto) [place] % (Auto) Eos % (Auto) Baso % (Auto) Lymph # (Auto) [place] # (Auto) Eos # (Auto) Baso # (Auto) Abs Immat Gran (auto) Absolute Neuts (auto) Absolute Nucleated RBC Nucleated RBC % PT INR APTT Sodium Potassium Chloride Carbon Dioxide Anion Gap BUN Creatinine Estim Creat Clear Calc Estimated GFR Glucose Calcium Total Bilirubin AST ALT Alkaline Phosphatase 90 Troponin I < 0.012 NT-Pro-B Natriuret Pep Cancelled 3740 H Total Protein Cancelled 7.0 Albumin Cancelled Urine Color Urine Appearance Urine pH Ur Specific [place] Urine Protein Urine Glucose (UA) Urine Ketones Ur Blood (Man) Urine Nitrate Urine Bilirubin Urine Urobilinogen Leukocyte Esterase Rfl Urine RBC Urine WBC Ur Squamous Epith Cells Urine Bacteria Urine Casts 07/20/24 07/20/24 16:41 19:24 WBC RBC Hgb Hct MCV MCH MCHC RDW Plt Count MPV Immature Gran % (Auto) Neut % (Auto) Lymph % (Auto) [place] % (Auto) Eos % (Auto) Baso % (Auto) Lymph # (Auto) [place] # (Auto) Eos # (Auto) Baso # (Auto) Abs Immat Gran (auto) Absolute Neuts (auto) Absolute Nucleated RBC Nucleated RBC % PT INR APTT Sodium Potassium Chloride Carbon Dioxide Anion Gap BUN Creatinine Estim Creat Clear Calc Estimated GFR Glucose Calcium Total Bilirubin AST ALT Alkaline Phosphatase Troponin I < 0.012 NT-Pro-B Natriuret Pep Total Protein Albumin 4.2 Urine Color Yellow Urine Appearance Clear Urine pH 6.0 Ur Specific [place] 1.007 Urine Protein Negative Urine Glucose (UA) Negative Urine Ketones Negative Ur Blood (Man) Non-hemolyzed trace Urine Nitrate Negative Urine Bilirubin Negative Urine Urobilinogen 0.2 Leukocyte Esterase Rfl Negative Urine RBC 0-2 Urine WBC 0-5 Ur Squamous Epith Cells None seen Urine Bacteria None seen Urine Casts 0-2 Impressions Chest X-Ray 07/20/24 17:14 IMPRESSION: 1. Mild streaky left basilar atelectasis. No other acute cardiopulmonary disease. Scrotum Ultrasound 07/20/24 17:37 IMPRESSION: Left testicular cyst. The right epididymal cyst. Left varicocele. Otherwise, normal testicular ultrasound. EKG x3 personally reviewed and interpreted. Most recent EKG demonstrated rate 98 AFib possible right ventricular hypertrophy lateral IA of indeterminate age. Cardiology interpretation pending on most recent EKG. Assessment and Plan Assessment and plan (1) Atrial fibrillation with rapid ventricular response: Code(s): I48.91 - Unspecified atrial fibrillation Status: Acute (2) Atrial fibrillation, new onset: Code(s): I48.91 - Unspecified atrial fibrillation Status: Inactive (3) Left testicular pain: Code(s): N50.812 - Left testicular pain Status: Inactive (4) Cyst of testis: Code(s): N44.2 - Benign cyst of testis Status: Acute (5) Sleep apnea: Qualifiers: Sleep apnea type: obstructive Qualified Code(s): G47.33 - Obstructive sleep apnea (adult) (pediatric) Code(s): G47.30 - Sleep apnea, unspecified Status: Acute Plan Patient has a new diagnosis of AFib with RVR. Given patient's relative asymptomatic presentation he could have been in AFib for some time minimally now came to our attention incidentally. Patient was given a therapeutic dose of Lovenox in the ER. Patient does have a history of coronary disease and had been followed by heart care group in the recent past. Cardiology has been consulted. Will check echocardiogram to further evaluate patient's cardiac structure and function. Acute myocardial ischemia has been ruled out with serial troponins. Patient being monitored in IMU. Patient's blood pressure does remain stable. Patient's rate was controlled on Cardizem at 10 mg. However his blood pressures were slightly low. We decrease the Cardizem drip to 5 mg his rate was still controlled. The patient is on q.12 hour metoprolol. He received is home morning dose but did not receive his evening dose of metoprolol will give 1 time dose of metoprolol currently. Will defer further adjustments of patient's beta-anne and antihypertensives to Cardiology Service. He would benefit from long-term anticoagulation based on chads Vasc score which is at least 4 due to age, history of hypertension, coronary artery disease history. Will defer choice of anticoagulant to Cardiology Service. Will check TSH to rule out metabolic causes for tachyarrhythmia. Will encourage use of CPAP given patient's history of obstructive sleep apnea. Patient is having left testicular pain and has cyst noted on scrotal ultrasound. Urology has been consulted. Patient's UA does not indicate evidence of infection and scrotum is not swollen or erythematous to suggest acute infectious process. Await further recommendations from Urology. Patient has been admitted as observation status. Quality VTE Prophylaxis VTE prophylaxis: pharmacologic ordered (Lovenox 1 milligram/kilogram) Hospitalist [facility] Advance Care Plan I have confirmed that the patient's Advanced Care Plan is present, code status is documented, or surrogate decision maker is listed in patient medical record.: Yes Medication Reconciliation I have utilized all available resources to obtain, update and review the patients current medications (includes all prescriptions, OTC, herbals, cannabis, and nutritional supplements).: Yes
[2024-07-20 23:17] LABS: Troponin I < 0.012 ng/mL (0.000-0.034)
--- NOTE | 2024-07-20 23:48 | ECG_ITS ---
Test Date: 2024-07-21 00:06:06 Measurements Intervals [place] Rate: 77 P: 0 NE: 0 QRS: -23 QRSD: 67 T: -23 QT: 370 QTc: 421 Interpretive Statements ATRIAL FIBRILLATION EARLY PRECORDIAL R/S TRANSITION LOW QRS VOLTAGE IN EXTREMITY LEADS INFERIOR INFARCT, AGE INDETERMINATE BASELINE ARTIFACT- I, II, III, AVR, AVL, AVF, V1-V6 ABNORMAL ECG Compared to ECG 07/21/2024 00:04:01 No significant changes Electronically Signed On 07-21-2024 07:26:45 NETTING INSPECTOR by Silverio Urias D.O.
[2024-07-21] VITALS (18 sets, daily range): BP systolic 92–125; BP diastolic 59–76; PULSE 80–112; RESP 18–19; TEMP 36.6–36.9; O2SAT 97–99
--- NOTE | 2024-07-21 | ECHO_ITS ---
Patient Info Name: Khoa Philippe Age: 84 years : 1940 Gender: Male Ht: 64 in Wt: 150 lbs BSA: 1.77 m2 HR: 89 bpm BP: 118 / 71 mmHg Heart Rhythm: Atrial Fibrillation Technical Quality: Good Exam Date: 07/21/2024 10:50 AM Exam Location: Echo Lab Patient Status: Inpatient Admit Date: 07/20/2024 Staff Ordering Physician: Anitra Gibson DO Imaging Scheduler: Christiano Llamas RDCS Attending Provider: Yolanda Pike PA-C Referring Physician: Paige AQUINO; Exam Type: CA echo dop color flow w con Study Info Indications - new onst A FIB Complete two-dimensional, color flow and Doppler transthoracic echocardiogram is performed with contrast to opacify the left ventricle and to improve the deliniation of the left ventricle endocardial borders. Summary 1. Definity contrast injected to improve visualization. 2. Normal left ventricular size with preserved systolic contractility. 3. Markedly dilated left atrium. 4. Mild MR. 5. Atrial fibrillation. Left Ventricle Left ventricular chamber dimension is normal. Left ventricular systolic function is normal, estimated at 50-55%. The left ventricular diastolic function is indeterminate. Right Ventricle Right ventricular chamber dimension is normal. Left Atria Left atrial chamber dimension is severely enlarged. Right Atria Right atrial chamber dimension is normal. Aortic Valve The aortic valve is normal. Pulmonic Valve The pulmonic valve is normal. Mitral Valve The mitral valve has normal leaflets. There is mild mitral valve regurgitation. Tricuspid Valve The tricuspid valve leaflets are normal. Pericardium/Pleural The pericardium appears normal. Aorta The aortic root size at the sinus of Valsalva is normal. Left Ventricular Outflow Tract Name Value Normal LVOT 2D LVOT Diameter 2.13 cm LVOT Doppler LVOT Peak Gradient 2 mmHg LVOT Mean Gradient 1 mmHg LVOT VTI 14.23 cm LVOT VTI/AV VTI Ratio 0.76 LVOT Stroke Volume 50.46 ml LVOT CO 5.96 l/min LVOT CI 3.37 L/min/m2 Pulmonic Valve Name Value Normal PV Doppler PV Peak Gradient 1 mmHg Mitral Valve Name Value Normal MV Doppler MV Decel [place] 359.97 cm/s2 MV PHT 0 s MV Area (PHT) 3.45 cm2 4.00-5.00 MV Regurgitation Doppler MR Peak Gradient 80 mmHg MV Diastolic Function MV E Peak Velocity 79.05 cm/s MV Decel Time 0 s MV Annular TDI MV E/e' (Septal) 8.82 <=8.00 MV E/e' (Lateral) 6.67 <=8.00 MV E/e' (Average) 7.74 Tricuspid Valve Name Value Normal TV Regurgitation Doppler TR Peak Velocity 260.52 cm/s TR Peak Gradient 27 mmHg Estimated PAP/RSVP RA Pressure 10 mmHg <=5 PA Systolic Pressure 37 mmHg <36 RV Systolic Pressure 37 mmHg <36 Aortic Valve Name Value Normal AV Doppler AV Peak Velocity 108.19 cm/s AV Peak Gradient 5 mmHg AV Mean Gradient 3 mmHg AV VTI 18.76 cm AV Area (Cont Eq VTI) 2.69 cm2 >=3.00 AV Area (Cont Eq [place]) 2.54 cm2 AV Regurgitation 2D LVOT Area 3.55 cm2 Ventricles Name Value Normal LV Dimensions 2D/MM IVS Diastolic Thickness (2D) 0.83 cm 0.60-1.00 LVID Diastole (2D) 4.32 cm 4.20-5.80 LVIW Diastolic Thickness (2D) 0.87 cm 0.60-1.00 LVID Systole (2D) 2.71 cm 2.50-4.00 LVOT Diameter 2.13 cm LV Mass (2D Cubed) 114.39 g 88.00-224.00 LV Mass Index (2D Cubed) 0.01 g/cm2 0.00-0.01 Relative Wall Thickness (2D) 0.40 LV Fractional Shortening/Ejection Fraction 2D/MM LV Fractional Shortening (2D) 37 % 25-43 LV EF (2D Teicholz) 67 % 52-72 LV Diastolic Volume (4C MOD) 82.59 ml LV EF (4C MOD) 54 % LV Diastolic Volume (2C MOD) 90.86 ml LV EF (2C MOD) 62 % LV Diastolic Volume (BP MOD) 87.08 ml 62.00-150.00 LV Diastolic Volume Index (BP MOD) 0.05 l/m2 0.03-0.07 LV Systolic Volume (BP MOD) 37.28 ml 21.00-61.00 LV Systolic Volume Index (BP MOD) 0.02 l/m2 0.01-0.03 LV EF (BP MOD) 57 % 52-72 LV Diastolic Length (4C) 7.46 cm LV Systolic Length (4C) 6.20 cm LV Stroke Volume (4C MOD) 44.47 ml Atria Name Value Normal LA Dimensions LA Volume (4C A-L) 57.47 ml LA Volume (BP A-L) 79.06 ml RA Dimensions RA Area (4C) 14.57 cm2 <=18.00 Report Signatures
[2024-07-21] MEDS: METOPROLOL TARTRATE 25 MG TABLET PO ×2 (01:01→09:31)
[2024-07-21] MEDS: ACETAMINOPHEN 325 MG TABLET 650 MG PO ×3 (03:15→20:59)
--- NOTE | 2024-07-21 08:57 | P.PNIM_ITS ---
Progress Note: A&P Assessment and Plan (1) Atrial fibrillation with rapid ventricular response: Code(s): I48.91 - Unspecified atrial fibrillation Status: Acute Assessment and Plan: - Asymptomatic - EKG: Afib RVR HR 117 on admission - Troponin negative x3 - Patient was given a therapeutic dose of Lovenox in the ER. - Chest XR: Mild streaky left basilar atelectasis. No other acute cardiopulmonary disease. - BNP elevated at 3740, Echo with LVEF 50-55% - TSH ordered to rule out metabolic causes for tachyarrhythmia. WNL. - Medication: Rate was controlled on Cardizem at 10 mg however blood pressures low, d ecreased to 5 mg then discontinued at midnight. Metoprolol 25 mg BID transitioned to 100 mg metoprolol succinate by cardiology - Chadsvasc Score: 4 Anticoagulation: Started on Eliquis 5 mg BID - Telemetry - Cardiology consulted metoprolol tartrate 25 mg BID transitioned to 100 mg metoprolol succinate (2) Atrial fibrillation, new onset: Code(s): I48.91 - Unspecified atrial fibrillation Status: Inactive Assessment and Plan: See plan above. (3) Cyst of testis: Code(s): N44.2 - Benign cyst of testis Status: Acute Assessment and Plan: Patient is having left testicular pain, nontraumatic. Patient's UA does not indicate evidence of infection and scrotum is not swollen or erythematous to s uggest acute infectious process. - Scrotum US: left testicular cyst. Right epididymal cyst. Left varicocele. Otherwise, normal testicular US. - Urology consulted, appreciate recommendations (4) Hypertension: Code(s): I10 - Essential (primary) hypertension Status: Acute Assessment and Plan: Chronic - Metoprolol 25 mg BID transitioned to metoprolol succinate 100 mg daily - Lisinopril 20 mg daily - currently holding the following home medications amlodipine 10 mg daily - monitor (5) Sleep apnea: Qualifiers: Sleep apnea type: obstructive Qualified Code(s): G47.33 - Obstructive sleep apnea (adult) (pediatric) Code(s): G47.30 - Sleep apnea, unspecified Status: Acute Assessment and Plan: Encourage CPAP use Time Spent With Patient Time with patient: 25 - 35 minutes Subjective Date/time seen: 07/21/24 08:57 Interval history: 84-year-old male with a past medical history of coronary disease status post 2 stents, obstructive sleep apnea, prostate cancer status post TURP, hyperlipidemia, hypertension, and glaucoma who presented to the hospital from urgent care with complaint of with testicular pain and incidental finding of AFib RVR. Patient is pleasant lying comfortably in bed. He continues to be in afib RVR on assessment. Cardiology was present and starting patient on metoprolol succinate. Patient denies chest pain, shortness of breath and palpitations. He continues to endorse testicular pain worsened with urination. He denies any changes in urination including burning sensation, hematuria, or increased straining or decreased stream. Urology has been consulted. Review of Systems Review of Systems: All systems reviewed & are unremarkable except as noted in HPI and below Exam Narrative: AF HR 90 RR 18 SpO2 98 BP 117/76 General: male in no acute respiratory distress who is nontoxic appearing, lying semi recumbent in bed. HEENT: Normocephalic. Atraumatic. Extraocular movement intact. Sclera clear and anicteric. No facial asymmetry. Chest: Lungs are clear to auscultation bilaterally. No wheezes or crackles. CV: Heart was tachycardic with irregularly irregular rhythm. S1/S2. No murmurs, gallops, or rubs. : No swelling, pain, erythema of the testicles. Abd: Abdomen was soft. Nontender. Nondistended. Positive bowel sounds. No organomegaly or masses. Ext: No clubbing, cyanosis, or edema. 2+ DP pulses bilaterally. Neuro: Patient is alert. Cranial nerves 2-12 are intact. Speech is clear. Objective Data Vital Signs Vital Signs: Vital Signs - 24 hr 07/20/24 16:22 07/20/24 16:44 07/20/24 16:46 Temperature 97.7 F Pulse Rate 140 H 136 H 133 H Respiratory Rate 15 Blood Pressure 141/95 H 138/84 Pulse Oximetry 99 Oxygen Delivery Room Air 07/20/24 16:45 07/20/24 17:24 07/20/24 16:46 Temperature Pulse Rate 122 H 126 H 102 H Respiratory Rate 15 20 Blood Pressure 127/86 Pulse Oximetry 98 100 Oxygen Delivery 07/20/24 17:54 07/20/24 18:01 07/20/24 19:49 Temperature Pulse Rate 123 H 92 89 Respiratory Rate 15 14 Blood Pressure 122/66 121/75 Pulse Oximetry 99 98 Oxygen Delivery 07/20/24 19:49 07/20/24 21:06 07/20/24 21:55 Temperature Pulse Rate 92 87 84 Respiratory Rate 16 17 Blood Pressure 114/76 113/68 Pulse Oximetry 97 98 Oxygen Delivery 07/20/24 21:56 07/20/24 22:00 07/20/24 22:24 Temperature Pulse Rate 93 80 84 Respiratory Rate Blood Pressure 113/68 100/64 Pulse Oximetry Oxygen Delivery 07/20/24 21:42 07/20/24 22:00 07/20/24 23:39 Temperature 97.9 F Pulse Rate 122 H 90 75 Respiratory Rate 18 Blood Pressure 131/90 100/64 98/59 L Pulse Oximetry 97 Oxygen Delivery 07/21/24 00:00 07/21/24 00:00 07/21/24 01:01 Temperature 98.0 F Pulse Rate 81 84 80 Respiratory Rate 19 Blood Pressure 92/63 L 114/71 Pulse Oximetry 97 Oxygen Delivery 07/21/24 01:00 07/21/24 00:00 07/21/24 02:00 Temperature Pulse Rate 80 80 96 Respiratory Rate Blood Pressure 100/76 Pulse Oximetry Oxygen Delivery 07/21/24 02:00 07/21/24 02:00 07/21/24 04:00 Temperature 98.1 F Pulse Rate 96 82 87 Respiratory Rate 18 Blood Pressure 125/76 93/68 L Pulse Oximetry 99 Oxygen Delivery 07/21/24 04:00 07/21/24 04:00 07/21/24 04:00 Temperature Pulse Rate 93 93 Respiratory Rate Blood Pressure Pulse Oximetry Oxygen Delivery Room Air 07/21/24 06:00 07/21/24 06:00 07/21/24 08:00 Temperature 97.8 F Pulse Rate 98 98 112 H Respiratory Rate 18 Blood Pressure 118/71 Pulse Oximetry 98 Oxygen Delivery 07/20/24 22:02 Temperature Pulse Rate 93 Respiratory Rate Blood Pressure Pulse Oximetry Oxygen Delivery Intake/Output Intake/Output: Intake & Output 07/18/24 07/19/24 07/20/24 07/21/24 23:59 23:59 23:59 23:59 Intake Total 49.2 451.8 Balance 49.2 451.8 Meds/Results Medications: Active Medications Generic Name Dose Route Start Last Admin Trade Name Freq PRN Reason Stop Dose Admin Acetaminophen 650 mg 07/20/24 19:31 07/21/24 07:04 Acetaminophen 325 Mg Tablet PO 650 mg Q4H PRN Administration Mild Pain (1-3) or Fever Aspirin 81 mg 07/21/24 09:00 Aspirin 81 Mg Enteric Tablet PO DAILY [facility] Atorvastatin Calcium 40 mg 07/21/24 21:00 Atorvastatin 40 Mg Tablet PO HS [facility] Calcium Carbonate 500 mg 07/21/24 07:45 Calcium Carbonate (Tums) 500 Mg (200 Mg Elemental) PO BID PRN Indigestion Latanoprost 1 drop 07/21/24 21:00 Latanoprost 0.005% Op Soln 2.5 Ml Btl EACH EYE HS [facility] Lisinopril 20 mg 07/21/24 09:00 Lisinopril 20 Mg Tablet PO DAILY [facility] Metoprolol Tartrate 25 mg 07/21/24 09:00 Metoprolol Tartrate 25 Mg Tablet PO Q12HR [facility] Multivitamins Therapeutic 1 tablet 07/21/24 09:00 Multivitamins Therapeutic Tab (*Bkc) PO DAILY [facility] Multivitamins/Minerals 1 tablet 07/21/24 09:00 Opti-Gen Tab PO BID [facility] Non-Formulary Medication 1 each 07/21/24 07:55 Nonformulary Nutritional Supplement XX 07/22/24 07:54 PRN PRN PROTOCOL Perflutren Lipid Microsphere 0 ml 07/20/24 21:07 Perflutren Lipid Microspheres 1.5 Ml Vial Diluted To 10 Ml Total Volume IV PUSH 07/23/24 21:07 ONCE PRN adequate visualization Protocol Vitamin D 400 units 07/21/24 09:00 Cholecalciferol 400 Units Tablet (Vit D) PO DAILY [facility] Radiology Results: ITS Impressions Chest X-Ray 07/20/24 17:14 IMPRESSION: 1. Mild streaky left basilar atelectasis. No other acute cardiopulmonary disease. Scrotum Ultrasound 07/20/24 17:37 IMPRESSION: Left testicular cyst. The right epididymal cyst. Left varicocele. Otherwise, normal testicular ultrasound. Labs Labs: Laboratory Results - last 24 hr 07/20/24 07/20/24 07/20/24 16:41 16:41 16:41 WBC 7.2 RBC 4.39 L Hgb 13.9 L Hct 41.3 L MCV 94.1 MCH 31.7 MCHC 33.7 RDW 15.4 H Plt Count 323 MPV 9.0 Immature Gran % (Auto) 0.3 Neut % (Auto) 70.8 Lymph % (Auto) 18.1 L [place] % (Auto) 8.3 Eos % (Auto) 1.9 Baso % (Auto) 0.6 Lymph # (Auto) 1.31 [place] # (Auto) 0.6 Eos # (Auto) 0.1 Baso # (Auto) 0.0 Abs Immat Gran (auto) 0.02 Absolute Neuts (auto) 5.1 Absolute Nucleated RBC 0.000 Nucleated RBC % 0.0 PT 12.7 INR 0.9 APTT 24.2 Sodium Cancelled 136 L Potassium Cancelled 4.4 Chloride Cancelled Carbon Dioxide Anion Gap BUN Creatinine Estim Creat Clear Calc Estimated GFR Glucose Calcium Total Bilirubin AST ALT Alkaline Phosphatase Troponin I NT-Pro-B Natriuret Pep Total Protein Albumin TSH (Reflex) Urine Color Urine Appearance Urine pH Ur Specific [place] Urine Protein Urine Glucose (UA) Urine Ketones Ur Blood (Man) Urine Nitrate Urine Bilirubin Urine Urobilinogen Leukocyte Esterase Rfl Urine RBC Urine WBC Ur Squamous Epith Cells Urine Bacteria Urine Casts 07/20/24 07/20/24 07/20/24 16:41 16:41 16:41 WBC RBC Hgb Hct MCV MCH MCHC RDW Plt Count MPV Immature Gran % (Auto) Neut % (Auto) Lymph % (Auto) [place] % (Auto) Eos % (Auto) Baso % (Auto) Lymph # (Auto) [place] # (Auto) Eos # (Auto) Baso # (Auto) Abs Immat Gran (auto) Absolute Neuts (auto) Absolute Nucleated RBC Nucleated RBC % PT INR APTT Sodium Potassium Chloride 107 Carbon Dioxide Cancelled 24 Anion Gap Cancelled 5 BUN Cancelled Creatinine Estim Creat Clear Calc Estimated GFR Glucose Calcium Total Bilirubin AST ALT Alkaline Phosphatase Troponin I NT-Pro-B Natriuret Pep Total Protein Albumin TSH (Reflex) Urine Color Urine Appearance Urine pH Ur Specific [place] Urine Protein Urine Glucose (UA) Urine Ketones Ur Blood (Man) Urine Nitrate Urine Bilirubin Urine Urobilinogen Leukocyte Esterase Rfl Urine RBC Urine WBC Ur Squamous Epith Cells Urine Bacteria Urine Casts 07/20/24 07/20/24 07/20/24 16:41 16:41 16:41 WBC RBC Hgb Hct MCV MCH MCHC RDW Plt Count MPV Immature Gran % (Auto) Neut % (Auto) Lymph % (Auto) [place] % (Auto) Eos % (Auto) Baso % (Auto) Lymph # (Auto) [place] # (Auto) Eos # (Auto) Baso # (Auto) Abs Immat Gran (auto) Absolute Neuts (auto) Absolute Nucleated RBC Nucleated RBC % PT INR APTT Sodium Potassium Chloride Carbon Dioxide Anion Gap BUN 22 H Creatinine Cancelled 0.70 Estim Creat Clear Calc Cancelled 56 Estimated GFR Cancelled Glucose Calcium Total Bilirubin AST ALT Alkaline Phosphatase Troponin I NT-Pro-B Natriuret Pep Total Protein Albumin TSH (Reflex) Urine Color Urine Appearance Urine pH Ur Specific [place] Urine Protein Urine Glucose (UA) Urine Ketones Ur Blood (Man) Urine Nitrate Urine Bilirubin Urine Urobilinogen Leukocyte Esterase Rfl Urine RBC Urine WBC Ur Squamous Epith Cells Urine Bacteria Urine Casts 07/20/24 07/20/24 07/20/24 16:41 16:41 16:41 WBC RBC Hgb Hct MCV MCH MCHC RDW Plt Count MPV Immature Gran % (Auto) Neut % (Auto) Lymph % (Auto) [place] % (Auto) Eos % (Auto) Baso % (Auto) Lymph # (Auto) [place] # (Auto) Eos # (Auto) Baso # (Auto) Abs Immat Gran (auto) Absolute Neuts (auto) Absolute Nucleated RBC Nucleated RBC % PT INR APTT Sodium Potassium Chloride Carbon Dioxide Anion Gap BUN Creatinine Estim Creat Clear Calc Estimated GFR > 60 Glucose Cancelled 100 Calcium Cancelled 9.0 Total Bilirubin Cancelled AST ALT Alkaline Phosphatase Troponin I NT-Pro-B Natriuret Pep Total Protein Albumin TSH (Reflex) Urine Color Urine Appearance Urine pH Ur Specific [place] Urine Protein Urine Glucose (UA) Urine Ketones Ur Blood (Man) Urine Nitrate Urine Bilirubin Urine Urobilinogen Leukocyte Esterase Rfl Urine RBC Urine WBC Ur Squamous Epith Cells Urine Bacteria Urine Casts 07/20/24 07/20/24 07/20/24 16:41 16:41 16:41 WBC RBC Hgb Hct MCV MCH MCHC RDW Plt Count MPV Immature Gran % (Auto) Neut % (Auto) Lymph % (Auto) [place] % (Auto) Eos % (Auto) Baso % (Auto) Lymph # (Auto) [place] # (Auto) Eos # (Auto) Baso # (Auto) Abs Immat Gran (auto) Absolute Neuts (auto) Absolute Nucleated RBC Nucleated RBC % PT INR APTT Sodium Potassium Chloride Carbon Dioxide Anion Gap BUN Creatinine Estim Creat Clear Calc Estimated GFR Glucose Calcium Total Bilirubin 0.7 AST Cancelled 30 ALT Cancelled 23 Alkaline Phosphatase Cancelled Troponin I NT-Pro-B Natriuret Pep Total Protein Albumin TSH (Reflex) Urine Color Urine Appearance Urine pH Ur Specific [place] Urine Protein Urine Glucose (UA) Urine Ketones Ur Blood (Man) Urine Nitrate Urine Bilirubin Urine Urobilinogen Leukocyte Esterase Rfl Urine RBC Urine WBC Ur Squamous Epith Cells Urine Bacteria Urine Casts 07/20/24 07/20/24 07/20/24 16:41 16:41 16:41 WBC RBC Hgb Hct MCV MCH MCHC RDW Plt Count MPV Immature Gran % (Auto) Neut % (Auto) Lymph % (Auto) [place] % (Auto) Eos % (Auto) Baso % (Auto) Lymph # (Auto) [place] # (Auto) Eos # (Auto) Baso # (Auto) Abs Immat Gran (auto) Absolute Neuts (auto) Absolute Nucleated RBC Nucleated RBC % PT INR APTT Sodium Potassium Chloride Carbon Dioxide Anion Gap BUN Creatinine Estim Creat Clear Calc Estimated GFR Glucose Calcium Total Bilirubin AST ALT Alkaline Phosphatase 90 Troponin I < 0.012 NT-Pro-B Natriuret Pep Cancelled 3740 H Total Protein Cancelled 7.0 Albumin Cancelled TSH (Reflex) Urine Color Urine Appearance Urine pH Ur Specific [place] Urine Protein Urine Glucose (UA) Urine Ketones Ur Blood (Man) Urine Nitrate Urine Bilirubin Urine Urobilinogen Leukocyte Esterase Rfl Urine RBC Urine WBC Ur Squamous Epith Cells Urine Bacteria Urine Casts 07/20/24 07/20/24 07/20/24 16:41 19:24 22:47 WBC RBC Hgb Hct MCV MCH MCHC RDW Plt Count MPV Immature Gran % (Auto) Neut % (Auto) Lymph % (Auto) [place] % (Auto) Eos % (Auto) Baso % (Auto) Lymph # (Auto) [place] # (Auto) Eos # (Auto) Baso # (Auto) Abs Immat Gran (auto) Absolute Neuts (auto) Absolute Nucleated RBC Nucleated RBC % PT INR APTT Sodium Potassium Chloride Carbon Dioxide Anion Gap BUN Creatinine Estim Creat Clear Calc Estimated GFR Glucose Calcium Total Bilirubin AST ALT Alkaline Phosphatase Troponin I < 0.012 < 0.012 NT-Pro-B Natriuret Pep Total Protein Albumin 4.2 TSH (Reflex) 1.240 Urine Color Yellow Urine Appearance Clear Urine pH 6.0 Ur Specific [place] 1.007 Urine Protein Negative Urine Glucose (UA) Negative Urine Ketones Negative Ur Blood (Man) Non-hemolyzed trace Urine Nitrate Negative Urine Bilirubin Negative Urine Urobilinogen 0.2 Leukocyte Esterase Rfl Negative Urine RBC 0-2 Urine WBC 0-5 Ur Squamous Epith Cells None seen Urine Bacteria None seen Urine Casts 0-2 Quality VTE Prophylaxis VTE prophylaxis: pharmacologic ordered
--- NOTE | 2024-07-21 09:04 | ECG_ITS ---
Test Date: 2024-07-21 00:04:01 Measurements Intervals [place] Rate: 81 P: 0 TX: 0 QRS: -16 QRSD: 72 T: -14 QT: 377 QTc: 439 Interpretive Statements ATRIAL FIBRILLATION MISSING LEAD V4 EARLY PRECORDIAL R/S TRANSITION LOW QRS VOLTAGE IN LIMB LEADS INFERIOR INFARCT, AGE INDETERMINATE BASELINE ARTIFACT- I, II, III, AVR, AVL, AVF, V1-V2, V5 ABNORMAL ECG Compared to ECG 07/21/2024 00:03:17 NO SIGNIFICANT CHANGE Electronically Signed On 07-21-2024 11:54:38 [employer] by Silverio Urias D.O.
[2024-07-21] MEDS: lisinopriL 20 MG TABLET PO (09:32)
[2024-07-21] MEDS: OPTI-GEN TAB 1 TABLET PO ×2 (09:32→16:06)
[2024-07-21] MEDS: CHOLECALCIFEROL 400 UNITS TABLET (VIT D) PO (09:32)
[2024-07-21] MEDS: ASPIRIN 81 MG ENTERIC TABLET PO (09:32)
[2024-07-21] MEDS: MULTIVITAMINS THERAPEUTIC TAB (*BKC) 1 TABLET PO (09:32)
--- NOTE | 2024-07-21 10:29 | PM.CNCAR ---
Assessment and Plan Assessment and plan (1) Atrial fibrillation with rapid ventricular response: Code(s): I48.91 - Unspecified atrial fibrillation Status: Acute Plan this is a pleasant elderly man with newly recognized atrial fibrillation. The onset of this arrhythmia is unknown as he was totally asymptomatic with it. He was tachycardic upon arrival however that has now resolved and he is asymptomatic. I am going to recommend transitioning him to metoprolol succinate at a dosage of 100 mg daily and systemic anticoagulation is indicated. The hospitalists have already appropriately started apixaban. Echocardiogram has been ordered for this morning. I will see how he is doing tomorrow on the higher dose of metoprolol and arrange for timely follow-up in the office. Had a discussion with the patient in the room regarding rate control versus rhythm control strategies with atrial fibrillation. He is hemodynamically very stable with this arrhythmia and so there is no reason to or urgency to recommend a cardioversion during this hospitalization Raul Zepeda MD [facility] History of Present Illness History of Present Illness Consult date/time: 07/21/24 10:29 Reason For Visit: NEW ONSET AFIB WITH RVR, LEFT TESTICULAR PAIN Narrative: this is an 84-year-old man who I see in the office with a history of coronary artery disease who is being seen today at the request of the hospitalist because of atrial fibrillation. He has not been known to have atrial fib in the past. The patient came to an urgent care center yesterday complaining of testicular pain and while he was there was notice that he was tachycardic and in atrial fibrillation. He was completely unaware of this he had no sense of palpitations shortness of breath or chest pain. He was sent to the emergency room where he was evaluated and admitted. He was of course placed on intravenous diltiazem to provide heart rate control. Yesterday evening it is diltiazem infusion was discontinued. There is no note in the chart as to why it was discontinued. In any event since then he persists in atrial fibrillation with a heart rate 90-90 to 100 range and is otherwise comfortable and has no complaints. A urology consult has been placed to investigate his testicular pain which has yet to occur. He otherwise reports no cardiovascular symptoms. I see this patient in the office with a history of coronary artery disease. He had a high-grade stenosis in the ramus intermedius branch at when he was presenting at that time with anginal-type chest pain. Successful PCI was performed this lesion with stenting and he has done well since then. He did have some symptoms during his last visit with me in August of this year with intermittent nonexertional chest pain. In a nuclear stress test done at that time was negative. Review of Systems Constitutional: Constitutional: Reports no additional constitutional complaints Eyes: Eyes: Reports no additional eye complaints ENT: Reports system reviewed and no additional complaints, except as documented Cardiovascular: Cardiovascular: Reports no additional cardiovascular complaints Respiratory: Respiratory: Reports no additional respiratory complaints Gastrointestinal: Gastrointestinal: Reports no additional gastrointestinal complaints Genitourinary: Genitourinary: Reports as per HPI Comments: Testicular pain Musculoskeletal: Musculoskeletal: Reports no additional musculoskeletal complaints Integumentary/Breasts: Skin/Breast: Reports system reviewed and no additional complaints, except as docu Neurologic: Reports system reviewed and no additional complaints, except as documented Psychiatric: Psychiatric: Reports no additional psychiatric complaints Endocrine: Endocrine: Reports no additional endocrine complaints Hematologic/Lymphatic: Hematologic/Lymphatic: Reports no additional hematologic/lymphatic complaints Allergic/Immunologic: Allergic/Immunologic: Reports no additional allergic/immunologic complaints [facility] Past Medical History Medical History CAD (coronary artery disease) With angioplasty and 2 stents in 1999 COVID Essential (primary) hypertension Gastro-esophageal reflux disease without esophagitis Glaucoma History of prostate cancer Kidney stones (~2000) Left foot drop Lumbar spinal stenosis Mixed hyperlipidemia Osteoporosis Prostate cancer 2021 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) 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 bleeding Seborrheic keratosis Sleep apnea With recommended CPAP of pressure 13 on polysomnogram 2011 Vitamin D deficiency Surgical History Surgical History (Updated 07/20/24 @ 21:08 by Anitra Gibson DO) History of coronary artery stent placement x2, 1999 History of eye surgery left eye retinal surgery Status post cataract extraction of both eyes with insertion of intraocular lens Status post total replacement of left shoulder Status post total replacement of right shoulder Family History Family History Father Family history of heart disease in male family member before age 55, Onset Age: 58 Hypertension Acute myocardial infarction Heart disease Mother Bladder cancer Cerebrovascular accident Sibling , 2021 Liver cancer, primary, with metastasis from liver to other site sister Social History Social History (Updated 07/21/24 @ 07:35 by Anitra Gibson DO) Social History: He has been for 63 years. He and his raised 1 daughter and 1 son. 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 He drinks 1 glass of wine couple of times a month. He is a lifelong nonsmoker and denies history of illicit substance use. He works out at least once a week at [employer] usually on the treadmill. Code status: Full code Surrogate decision maker: Smoking status: Never smoker Second hand tobacco smoke exposure: No Alcohol intake: never Alcohol use details: occasionally Substance use: never Substance use type: does not use Do You Feel Safe in your Home?: Yes Lack of Transportation: No Lack of Food: Never True Current Housing: I Have Housing Concerned About Future Housing: No Difficulty Paying Gas/Electric Bills: No Difficulty Paying for Meds: No Currently Unemployed: No Education: Trade/Vocational Certificate Difficulty w/ Childcare or Family Care: No Living arrangements: with family Occupation/Education: retired Gender identity (if verbalized by the patient): Male Spiritual care concerns: No Meds Home Medications and Allergies Home Medications Medication Instructions Recorded Confirmed Type aspirin 81 mg tablet,delayed 81 mg PO DAILY 11/14/20 07/20/24 History release latanoprost 0.005 % eye drops 1 drp EACH EYE HS 11/14/20 07/20/24 History multivitamin (Multiple Vitamins 1 tablet PO DAILY 11/14/20 07/20/24 History tablet) cholecalciferol (vitamin D3) 10 10 mcg PO DAILY 11/19/21 07/20/24 History mcg (400 unit) tablet vit C 250 mg-vit E 90 mg-zinc 40 1 tablet PO BID 11/19/21 07/20/24 History mg-copper 1 up-eqvaoc-yarbkz capsule (PreserVision AREDS-2) krill 300 mg-omega 3 90 mg-dha 24 1 cap PO DAILY 02/02/23 07/20/24 History mg-epa 50 be-zzheelg-pshgp capsule (MegaRed [place]-3 Krill Oil) alendronate 35 mg tablet 35 mg PO WEEKLY #12 tabs 04/20/24 07/20/24 Rx amlodipine 10 mg tablet 10 mg PO DAILY 07/20/24 07/20/24 History atorvastatin 40 mg tablet 40 mg PO HS 07/20/24 07/20/24 History calcium carbonate 500 mg PO BID PRN Indigestion 07/20/24 07/20/24 History lisinopril 20 mg tablet 20 mg PO DAILY 07/20/24 07/20/24 History metoprolol tartrate 25 mg tablet 25 mg PO BID 07/20/24 07/20/24 History Allergies Allergy/AdvReac Type Severity Reaction Status Date / Time ioversol Allergy Severe Itching Verified 07/20/24 21:40 iodine Allergy Unknown ITCHING Verified 07/20/24 21:40 WITH IV CONTRAST--NO PROBLEM WITH TOPICAL IODINE Vital Signs Vital Signs - 24 hr 07/20/24 16:22 07/20/24 16:44 07/20/24 16:46 Temperature 36.5 C Pulse Rate 140 H 136 H 133 H Respiratory Rate 15 Blood Pressure 141/95 H 138/84 Pulse Oximetry 99 Oxygen Delivery Room Air 07/20/24 16:45 07/20/24 17:24 07/20/24 16:46 Temperature Pulse Rate 122 H 126 H 102 H Respiratory Rate 15 20 Blood Pressure 127/86 Pulse Oximetry 98 100 Oxygen Delivery 07/20/24 17:54 07/20/24 18:01 07/20/24 19:49 Temperature Pulse Rate 123 H 92 89 Respiratory Rate 15 14 Blood Pressure 122/66 121/75 Pulse Oximetry 99 98 Oxygen Delivery 07/20/24 19:49 07/20/24 21:06 07/20/24 21:55 Temperature Pulse Rate 92 87 84 Respiratory Rate 16 17 Blood Pressure 114/76 113/68 Pulse Oximetry 97 98 Oxygen Delivery 07/20/24 21:56 07/20/24 22:00 07/20/24 22:24 Temperature Pulse Rate 93 80 84 Respiratory Rate Blood Pressure 113/68 100/64 Pulse Oximetry Oxygen Delivery 07/20/24 21:42 07/20/24 22:00 07/20/24 23:39 Temperature 36.6 C Pulse Rate 122 H 90 75 Respiratory Rate 18 Blood Pressure 131/90 100/64 98/59 L Pulse Oximetry 97 Oxygen Delivery 07/21/24 00:00 07/21/24 00:00 07/21/24 01:01 Temperature 36.7 C Pulse Rate 81 84 80 Respiratory Rate 19 Blood Pressure 92/63 L 114/71 Pulse Oximetry 97 Oxygen Delivery 07/21/24 01:00 07/21/24 00:00 07/21/24 02:00 Temperature Pulse Rate 80 80 96 Respiratory Rate Blood Pressure 100/76 Pulse Oximetry Oxygen Delivery 07/21/24 02:00 07/21/24 02:00 07/21/24 04:00 Temperature 36.7 C Pulse Rate 96 82 87 Respiratory Rate 18 Blood Pressure 125/76 93/68 L Pulse Oximetry 99 Oxygen Delivery 07/21/24 04:00 07/21/24 04:00 07/21/24 04:00 Temperature Pulse Rate 93 93 Respiratory Rate Blood Pressure Pulse Oximetry Oxygen Delivery Room Air 07/21/24 06:00 07/21/24 06:00 07/21/24 08:00 Temperature 36.6 C Pulse Rate 98 98 112 H Respiratory Rate 18 Blood Pressure 118/71 Pulse Oximetry 98 Oxygen Delivery 07/21/24 09:21 07/21/24 09:31 07/20/24 22:02 Temperature Pulse Rate 89 98 93 Respiratory Rate Blood Pressure Pulse Oximetry Oxygen Delivery Exam Const: Other: very pleasant elderly man comfortable cooperative in no distress HENMT: Mouth: Yes moist mucous membranes Eyes: Sclera: sclerae normal Pupils: Equal, round and reactive pupils present Neck: Neck: supple and no JVD Other: no carotid bruits Resp: Effort & Inspection: normal respiratory effort Auscultation: clear to auscultation bilaterally Cardio: Rate: regular rate Rhythm: abnormal rhythm irregularly irregular GI: GI Palp: Yes Soft to palpation Auscultation: normal bowel sounds Skin: General skin exam: normal color Neuro: Other: alert and oriented Extrem: General: normal to inspection Results Labs and Meds 07/20/24 16:41 07/20/24 16:41 Lab results: Cardiac Enzymes 07/20/24 07/20/24 07/20/24 Range/Units 16:41 16:41 19:24 AST Cancelled 30 Troponin I < 0.012 < 0.012 (0.000-0.034) ng/mL 07/20/24 Range/Units 22:47 AST Troponin I < 0.012 (0.000-0.034) ng/mL Coagulation 07/20/24 Range/Units 16:41 PT 12.7 (11.1-14.7) Seconds APTT 24.2 (22.3-36.8) Seconds CBC 07/20/24 Range/Units 16:41 WBC 7.2 (4.5-10.0) K/mm3 RBC 4.39 L (4.6-6.20) M/mm3 Hgb 13.9 L (14.0-18.0) g/dL Hct 41.3 L (42.0-52.0) % Plt Count 323 (150-375) k/mm3 Lymph # (Auto) 1.31 (0.9-3.2) K/mm3 [place] # (Auto) 0.6 (0.1-0.6) K/mm3 Eos # (Auto) 0.1 (0-0.3) K/mm3 Baso # (Auto) 0.0 (0.0-0.1) K/mm3 Comprehensive Metabolic Panel 07/20/24 07/20/24 07/20/24 Range/Units 16:41 16:41 16:41 Sodium Cancelled 136 L Potassium Cancelled 4.4 Chloride Cancelled Carbon Dioxide BUN Creatinine Glucose Calcium AST ALT Alkaline Phosphatase Total Protein Albumin 07/20/24 07/20/24 07/20/24 Range/Units 16:41 16:41 16:41 Sodium Potassium Chloride 107 Carbon Dioxide Cancelled 24 BUN Cancelled 22 H Creatinine Cancelled Glucose Calcium AST ALT Alkaline Phosphatase Total Protein Albumin 07/20/24 07/20/24 07/20/24 Range/Units 16:41 16:41 16:41 Sodium Potassium Chloride Carbon Dioxide BUN Creatinine 0.70 Glucose Cancelled 100 Calcium Cancelled 9.0 AST Cancelled ALT Alkaline Phosphatase Total Protein Albumin 07/20/24 07/20/24 07/20/24 Range/Units 16:41 16:41 16:41 Sodium Potassium Chloride Carbon Dioxide BUN Creatinine Glucose Calcium AST 30 ALT Cancelled 23 Alkaline Phosphatase Cancelled 90 Total Protein Cancelled Albumin 07/20/24 07/20/24 Range/Units 16:41 16:41 Sodium Potassium Chloride Carbon Dioxide BUN Creatinine Glucose Calcium AST ALT Alkaline Phosphatase Total Protein 7.0 Albumin Cancelled 4.2 Intake and Output 07/20/24 07/21/24 07/21/24 23:59 07:59 15:59 Intake Total 49.2 451.8 480 Balance 49.2 451.8 480 Intake: IV 49.2 1.8 dilTIAZem 100 MG/100 ML 100 mg 49.2 1.8 In 100 ml @ 0 MG/HR IV CONT . Q0M [facility] Rx#:[id number] Oral 450 480 Other: # Unmeasured Voids 4 Patient Weight 07/21/24 23:59 Weight 67.9 kg
[2024-07-21] MEDS: PERFLUTREN LIPID MICROSPHERES 1.5 ML VIAL DILUTED TO 10 ML TOTAL VOLUME IV PUSH (10:50)
--- NOTE | 2024-07-21 11:12 | IVDEFINITY ---
Prior to administration of IV Definity the patient was educated on the risks and benefits of the imaging enhancing agent including potential adverse side effects. The patient verbalized understanding. Allergies were verified. No exclusion criteria were identified and at least one of the following inclusion criteria were met: 1) physician request, 2) patient technically difficult to image (per the [place] [employer]chocardi[employer] guidelines of two or more segments not discernable within the apical view), or 3) questionable left ventricular function. ?
[2024-07-21] MEDS: METOPROLOL SUCCINATE EXT REL 100 MG TABCR PO (16:05)
[2024-07-21] MEDS: ATORVASTATIN 40 MG TABLET PO (20:59)
[2024-07-21] MEDS: LATANOPROST 0.005% OP SOLN 2.5 ML BTL 1 DROP EACH EYE (21:00)
[2024-07-21] MEDS: APIXABAN 5 MG TABLET PO (21:00)
[2024-07-22] VITALS (10 sets, daily range): BP systolic 115–134; BP diastolic 72–88; PULSE 94–115; RESP 18–20; TEMP 36.6; O2SAT 98–99
[2024-07-22] MEDS: ACETAMINOPHEN 325 MG TABLET 650 MG PO (02:13)
[2024-07-22 05:04] LABS: Basophils Absolute Auto 0.1 K/mm3 (0.0-0.1); Basophils Percent Auto 0.9 % (0.2-1.2); Eosinophils Absolute Auto 0.1 K/mm3 (0-0.3); Eosinophils Percent Auto 2.4 % (0-4.4); Hematocrit 39.1 % (42.0-52.0); Hemoglobin 12.7 g/dL (14.0-18.0); Immature Granulocyte Absolute 0.02 K/mm3 (0.00-0.031); Immature Granulocyte Percent A 0.3 % (0-0.5); Lymphocytes Absolute Auto 0.84 K/mm3 (0.9-3.2); Lymphocytes Percent Auto 14.5 % (18.3-44.2); Mean Corpuscular HGB Conc 32.5 g/dl (32-36); Mean Corpuscular Hemoglobin 31.1 pg (26-34); Mean Corpuscular Volume 95.6 fl (80-100); Mean Platelet Volume 9.1 fl (7.4-10.4); Monocytes Absolute Auto 0.5 K/mm3 (0.1-0.6); Monocytes Percent Auto 9.1 % (2.6-8.5); Neutrophils Absolute Auto 4.2 K/mm3 (1.3-6.7); Neutrophils Percent Auto 72.8 % (45.5-73.1); Platelet Count Result 314 k/mm3 (150-375); Red Blood Count 4.09 M/mm3 (4.6-6.20); Red Cell Distribution Width 14.9 % (11.5-14.5); White Blood Count 5.8 K/mm3 (4.5-10.0)
[2024-07-22 05:16] LABS: Alanine Aminotransferase 18 U/L (6-50); Albumin Level 3.4 g/dL (3.5-5.1); Alkaline Phosphatase 65 U/L (38-126); Anion Gap 3 mmol/L (4-12); Aspartate Amino Transferase 23 U/L (17-59); Bilirubin,Total 0.6 mg/dL (0.2-1.3); Blood Urea Nitrogen 17 mg/dL (9-20); Calcium 8.6 mg/dL (8.4-10.2); Carbon Dioxide 25 mmol/L (22-30); Chloride 107 mmol/L (98-107); Estimated CRCL calculation 65 ml/min; Estimated Glomerular Filt Rate > 60; Glucose 95 mg/dL (65-110); Potassium 4.1 mmol/L (3.4-5.0); Sodium 135 mmol/L (137-145)
--- NOTE | 2024-07-22 07:26 | P.PNIM_ITS ---
Progress Note: A&P Assessment and Plan (1) Atrial fibrillation with rapid ventricular response: Code(s): I48.91 - Unspecified atrial fibrillation Status: Acute Assessment and Plan: - Asymptomatic - EKG: Afib RVR HR 117 on admission - Troponin negative x3 - Patient was given a therapeutic dose of Lovenox in the ER. - Chest XR: Mild streaky left basilar atelectasis. No other acute cardiopulmonary disease. - BNP elevated at 3740, Echo with LVEF 50-55% - TSH ordered to rule out metabolic causes for tachyarrhythmia. WNL. - Medication: Rate was controlled on Cardizem at 10 mg however blood pressures low, d ecreased to 5 mg then discontinued at midnight. Metoprolol 25 mg BID transitioned to 100 mg metoprolol succinate by cardiology - Chadsvasc Score: 4 Anticoagulation: Started on Eliquis 5 mg BID - Telemetry - Cardiology consulted metoprolol tartrate 25 mg BID transitioned to 100 mg metoprolol succinate (2) Cyst of testis: Code(s): N44.2 - Benign cyst of testis Status: Acute Assessment and Plan: Patient is having left testicular pain, nontraumatic. Patient's UA does not indicate evidence of infection and scrotum is not swollen or erythematous to suggest acute infectious process. - Scrotum US: left testicular cyst. Right epididymal cyst. Left varicocele. Otherwise, normal testicular US. - Urology consulted, appreciate recommendations (3) Hypertension: Code(s): I10 - Essential (primary) hypertension Status: Acute Assessment and Plan: Chronic - Metoprolol 25 mg BID transitioned to metoprolol succinate 100 mg daily - Lisinopril 20 mg daily - currently holding the following home medications amlodipine 10 mg daily - monitor (4) Sleep apnea: Qualifiers: Sleep apnea type: obstructive Qualified Code(s): G47.33 - Obstructive sleep apnea (adult) (pediatric) Code(s): G47.30 - Sleep apnea, unspecified Status: Acute Assessment and Plan: Encourage CPAP use Subjective Date/time seen: 07/22/24 07:26 Interval history: 84-year-old male with a past medical history of coronary disease status post 2 stents, obstructive sleep apnea, prostate cancer status post TURP, hyperlipidemia, hypertension, and glaucoma who presented to the hospital from urgent care with complaint of with testicular pain and incidental finding of AFib RVR. Review of Systems Review of Systems: All systems reviewed & are unremarkable except as noted in HPI and below Exam Narrative: AF HR General: male in no acute respiratory distress who is nontoxic appearing, lying semi recumbent in bed. HEENT: Normocephalic. Atraumatic. Extraocular movement intact. Sclera clear and anicteric. No facial asymmetry. Chest: Lungs are clear to auscultation bilaterally. No wheezes or crackles. CV: Heart was tachycardic with irregularly irregular rhythm. S1/S2. No murmurs, gallops, or rubs. : No swelling, pain, erythema of the testicles. Abd: Abdomen was soft. Nontender. Nondistended. Positive bowel sounds. No organomegaly or masses. Ext: No clubbing, cyanosis, or edema. 2+ DP pulses bilaterally. Neuro: Patient is alert. Cranial nerves 2-12 are intact. Speech is clear. Objective Data Vital Signs Vital Signs: Vital Signs - 24 hr 07/21/24 08:00 07/21/24 09:21 07/21/24 09:31 Temperature 97.8 F Pulse Rate 112 H 89 98 Respiratory Rate 18 Blood Pressure 118/71 Pulse Oximetry 98 Oxygen Delivery 07/21/24 08:00 07/21/24 08:00 07/21/24 10:00 Temperature Pulse Rate 98 97 Respiratory Rate Blood Pressure Pulse Oximetry Oxygen Delivery Room Air 07/21/24 12:00 07/21/24 12:00 07/21/24 12:00 Temperature 98 F Pulse Rate 90 104 H Respiratory Rate 18 Blood Pressure 117/76 Pulse Oximetry 98 Oxygen Delivery Room Air 07/21/24 16:05 07/21/24 14:00 07/21/24 16:00 Temperature Pulse Rate 98 106 H 100 Respiratory Rate Blood Pressure Pulse Oximetry Oxygen Delivery 07/21/24 16:00 07/21/24 16:00 07/21/24 18:00 Temperature 98.4 F Pulse Rate 83 86 Respiratory Rate 18 Blood Pressure 111/76 Pulse Oximetry 97 Oxygen Delivery Room Air 07/21/24 19:08 07/21/24 20:00 07/21/24 20:00 Temperature 98.4 F Pulse Rate 98 94 94 Respiratory Rate 18 18 Blood Pressure 108/59 L Pulse Oximetry 99 99 Oxygen Delivery Room Air 07/21/24 22:00 07/22/24 00:00 07/22/24 00:00 Temperature Pulse Rate 104 H 104 H 104 H Respiratory Rate 20 Blood Pressure Pulse Oximetry 99 Oxygen Delivery Room Air 07/22/24 00:00 07/22/24 02:00 07/22/24 04:00 Temperature 97.9 F Pulse Rate 104 H 102 H 95 Respiratory Rate 20 20 Blood Pressure 134/84 Pulse Oximetry 99 99 Oxygen Delivery Room Air 07/22/24 04:00 07/22/24 04:00 07/22/24 06:00 Temperature 97.8 F Pulse Rate 95 95 108 H Respiratory Rate 18 Blood Pressure 115/72 Pulse Oximetry 99 Oxygen Delivery Intake/Output Intake/Output: Intake & Output 07/19/24 07/20/24 07/21/24 07/22/24 23:59 23:59 23:59 23:59 Intake Total 49.2 1861.8 480 Balance 49.2 1861.8 480 Meds/Results Medications: Active Medications Generic Name Dose Route Start Last Admin Trade Name Freq PRN Reason Stop Dose Admin Acetaminophen 650 mg 07/20/24 19:31 07/22/24 02:13 Acetaminophen 325 Mg Tablet PO 650 mg Q4H PRN Administration Mild Pain (1-3) or Fever Apixaban 5 mg 07/21/24 21:00 07/21/24 21:00 Apixaban 5 Mg Tablet PO 5 mg Q12HR EUGENIO Administration Aspirin 81 mg 07/21/24 09:00 07/21/24 09:32 Aspirin 81 Mg Enteric Tablet PO 81 mg DAILY EUGENIO Administration Atorvastatin Calcium 40 mg 07/21/24 21:00 07/21/24 20:59 Atorvastatin 40 Mg Tablet PO 40 mg HS EUGENIO Administration Calcium Carbonate 500 mg 07/21/24 07:45 Calcium Carbonate (Tums) 500 Mg (200 Mg Elemental) PO BID PRN Indigestion Latanoprost 1 drop 07/21/24 21:00 07/21/24 21:00 Latanoprost 0.005% Op Soln 2.5 Ml Btl EACH EYE 1 drop HS EUGENIO Administration Lisinopril 20 mg 07/21/24 09:00 07/21/24 09:32 Lisinopril 20 Mg Tablet PO 20 mg DAILY EUGENIO Administration Metoprolol Succinate 100 mg 07/21/24 15:00 07/21/24 16:05 Metoprolol Succinate Ext Rel 100 Mg Tabcr PO 100 mg QAM EUGENIO Administration Multivitamins Therapeutic 1 tablet 07/21/24 09:00 07/21/24 09:32 Multivitamins Therapeutic Tab (*Bkc) PO 1 tablet DAILY EUGENIO Administration Multivitamins/Minerals 1 tablet 07/21/24 09:00 07/21/24 16:06 Opti-Gen Tab PO 1 tablet BID EUGENIO Administration Non-Formulary Medication 1 each 07/21/24 07:55 Nonformulary Nutritional Supplement XX 07/22/24 07:54 PRN PRN PROTOCOL Vitamin D 400 units 07/21/24 09:00 07/21/24 09:32 Cholecalciferol 400 Units Tablet (Vit D) PO 400 units DAILY EUGENIO Administration Radiology Results: ITS Impressions Chest X-Ray 07/20/24 17:14 IMPRESSION: 1. Mild streaky left basilar atelectasis. No other acute cardiopulmonary disease. Scrotum Ultrasound 07/20/24 17:37 IMPRESSION: Left testicular cyst. The right epididymal cyst. Left varicocele. Otherwise, normal testicular ultrasound. Labs Labs: Laboratory Results - last 24 hr 07/22/24 04:48 WBC 5.8 RBC 4.09 L Hgb 12.7 L Hct 39.1 L MCV 95.6 MCH 31.1 MCHC 32.5 RDW 14.9 H Plt Count 314 MPV 9.1 Immature Gran % (Auto) 0.3 Neut % (Auto) 72.8 Lymph % (Auto) 14.5 L [place] % (Auto) 9.1 H Eos % (Auto) 2.4 Baso % (Auto) 0.9 Lymph # (Auto) 0.84 L [place] # (Auto) 0.5 Eos # (Auto) 0.1 Baso # (Auto) 0.1 Abs Immat Gran (auto) 0.02 Absolute Neuts (auto) 4.2 Absolute Nucleated RBC 0.000 Nucleated RBC % 0.0 Sodium 135 L Potassium 4.1 Chloride 107 Carbon Dioxide 25 Anion Gap 3 L BUN 17 Creatinine 0.60 L Estim Creat Clear Calc 65 Estimated GFR > 60 Glucose 95 Calcium 8.6 Total Bilirubin 0.6 AST 23 ALT 18 Alkaline Phosphatase 65 Total Protein 6.0 L Albumin 3.4 L Quality VTE Prophylaxis VTE prophylaxis: pharmacologic ordered
[2024-07-22] MEDS: METOPROLOL SUCCINATE EXT REL 100 MG TABCR PO (09:32)
[2024-07-22] MEDS: APIXABAN 5 MG TABLET PO (09:33)
[2024-07-22] MEDS: ASPIRIN 81 MG ENTERIC TABLET PO (09:33)
[2024-07-22] MEDS: OPTI-GEN TAB 1 TABLET PO (09:33)
[2024-07-22] MEDS: lisinopriL 20 MG TABLET PO (09:33)
[2024-07-22] MEDS: CHOLECALCIFEROL 400 UNITS TABLET (VIT D) PO (09:33)
[2024-07-22] MEDS: MULTIVITAMINS THERAPEUTIC TAB (*BKC) 1 TABLET PO (09:33)
--- NOTE | 2024-07-22 10:17 | WPDURCON ---
Assessment and Plan Assessment and plan (1) Scrotal pain: Code(s): N50.82 - Scrotal pain Status: Acute Plan 84yM admitted with A-fib with RVR who complains of scrotal pain Plan: - No acute urologic surgical intervention indicated - Labs, imaging, hospital notes, and outpatient records reviewed. UA unremarkable for infection. Physical exam has been reported unremarkable. Scrotal US with no acute findings - Recommend scrotal support and as needed Tylenol and/or NSAIDs as tolerated - Outpatient follow-up with patient's established urologist, Dr. Ivan - Urology following peripherally at this time, please notify with any questions/concerns Urology Consult Note HPI Date Seen: 07/22/24 Requesting Physician: Yolanda Pike PA-C Primary Care Provider: Kayla Lindquist APRN Consult Narrative Narrative: Khoa Philippe is a 84 year old male for whom urology was consulted for scrotal pain. Please note this is a brief note. Patient chart reviewed and prior outpatient clinic notes reviewed. Patient admitted for A-fib with RVR. Also complained of scrotal pain. UA unremarkable for infection. Scrotal ultrasound reviewed -- no acute findings. Patient has tiny left testicular cyst and tiny right epididymal cyst. Per discussion with ED physician, physical exam of scrotum is completely benign. Patient follows with Dr. Ivan for history of prostate cancer s/p XRT and ADT. PSAs have been appropriately low. Was last evaluated as outpatient in early June 2024. 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) 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 bleeding Seborrheic keratosis Sleep apnea With recommended CPAP of pressure 13 on polysomnogram 2011 Vitamin D deficiency Surgical History Surgical History (Updated 07/20/24 @ 21:08 by Anitra Gibson DO) History of coronary artery stent placement x2, 1999 History of eye surgery left eye retinal surgery Status post cataract extraction of both eyes with insertion of intraocular lens Status post total replacement of left shoulder Status post total replacement of right shoulder Family History Family History Father Family history of heart disease in male family member before age 55, Onset Age: 58 Hypertension Acute myocardial infarction Heart disease Mother Bladder cancer Cerebrovascular accident Sibling , 2021 Liver cancer, primary, with metastasis from liver to other site sister Social History Social History (Updated 07/21/24 @ 07:35 by Anitra Gibson DO) Social History: He has been for 63 years. He and his raised 1 daughter and 1 son. 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 He drinks 1 glass of wine couple of times a month. He is a lifelong nonsmoker and denies history of illicit substance use. He works out at least once a week at [employer] usually on the treadmill. Code status: Full code Surrogate decision maker: Smoking status: Never smoker Second hand tobacco smoke exposure: No Alcohol intake: never Alcohol use details: occasionally Substance use: never Substance use type: does not use Do You Feel Safe in your Home?: Yes Lack of Transportation: No Lack of Food: Never True Current Housing: I Have Housing Concerned About Future Housing: No Difficulty Paying Gas/Electric Bills: No Difficulty Paying for Meds: No Currently Unemployed: No Education: Trade/Vocational Certificate Difficulty w/ Childcare or Family Care: No Living arrangements: with family Occupation/Education: retired Gender identity (if verbalized by the patient): Male Spiritual care concerns: No Meds Home Medications and Allergies Home Medications Medication Instructions Recorded Confirmed Type aspirin 81 mg tablet,delayed 81 mg PO DAILY 11/14/20 07/20/24 History release latanoprost 0.005 % eye drops 1 drp EACH EYE HS 11/14/20 07/20/24 History multivitamin (Multiple Vitamins 1 tablet PO DAILY 11/14/20 07/20/24 History tablet) cholecalciferol (vitamin D3) 10 10 mcg PO DAILY 11/19/21 07/20/24 History mcg (400 unit) tablet vit C 250 mg-vit E 90 mg-zinc 40 1 tablet PO BID 11/19/21 07/20/24 History mg-copper 1 he-yxhkiv-uesvij capsule (PreserVision AREDS-2) krill 300 mg-omega 3 90 mg-dha 24 1 cap PO DAILY 02/02/23 07/20/24 History mg-epa 50 cw-nnujqzt-hqkrv capsule (MegaRed [place]-3 Krill Oil) alendronate 35 mg tablet 35 mg PO WEEKLY #12 tabs 04/20/24 07/20/24 Rx amlodipine 10 mg tablet 10 mg PO DAILY 07/20/24 07/20/24 History atorvastatin 40 mg tablet 40 mg PO HS 07/20/24 07/20/24 History calcium carbonate 500 mg PO BID PRN Indigestion 07/20/24 07/20/24 History lisinopril 20 mg tablet 20 mg PO DAILY 07/20/24 07/20/24 History metoprolol tartrate 25 mg tablet 25 mg PO BID 07/20/24 07/20/24 History Allergies Allergy/AdvReac Type Severity Reaction Status Date / Time ioversol Allergy Severe Itching Verified 07/20/24 21:40 iodine Allergy Unknown ITCHING Verified 07/20/24 21:40 WITH IV CONTRAST--NO PROBLEM WITH TOPICAL IODINE Vital Signs Vital Signs - 24 hr 07/21/24 12:00 07/21/24 12:00 07/21/24 12:00 Temperature 36.6 C Pulse Rate 90 104 H Respiratory Rate 18 Blood Pressure 117/76 Pulse Oximetry 98 Oxygen Delivery Room Air 07/21/24 16:05 07/21/24 14:00 07/21/24 16:00 Temperature Pulse Rate 98 106 H 100 Respiratory Rate Blood Pressure Pulse Oximetry Oxygen Delivery 07/21/24 16:00 07/21/24 16:00 07/21/24 18:00 Temperature 36.9 C Pulse Rate 83 86 Respiratory Rate 18 Blood Pressure 111/76 Pulse Oximetry 97 Oxygen Delivery Room Air 07/21/24 19:08 07/21/24 20:00 07/21/24 20:00 Temperature 36.9 C Pulse Rate 98 94 94 Respiratory Rate 18 18 Blood Pressure 108/59 L Pulse Oximetry 99 99 Oxygen Delivery Room Air 07/21/24 22:00 07/22/24 00:00 07/22/24 00:00 Temperature Pulse Rate 104 H 104 H 104 H Respiratory Rate 20 Blood Pressure Pulse Oximetry 99 Oxygen Delivery Room Air 07/22/24 00:00 07/22/24 02:00 07/22/24 04:00 Temperature 36.6 C Pulse Rate 104 H 102 H 95 Respiratory Rate 20 20 Blood Pressure 134/84 Pulse Oximetry 99 99 Oxygen Delivery Room Air 07/22/24 04:00 07/22/24 04:00 07/22/24 06:00 Temperature 36.6 C Pulse Rate 95 95 108 H Respiratory Rate 18 Blood Pressure 115/72 Pulse Oximetry 99 Oxygen Delivery 07/22/24 07:55 Temperature 36.6 C Pulse Rate 112 H Respiratory Rate 18 Blood Pressure 124/88 Pulse Oximetry 98 Oxygen Delivery Results Labs 07/22/24 04:48 07/22/24 04:48 Labs: Short CBC 07/22/24 Range/Units 04:48 WBC 5.8 (4.5-10.0) K/mm3 Hgb 12.7 L (14.0-18.0) g/dL Hct 39.1 L (42.0-52.0) % Plt Count 314 (150-375) k/mm3 BMP 07/22/24 04:48 Sodium 135 L Potassium 4.1 Chloride 107 Carbon Dioxide 25 BUN 17 Creatinine 0.60 L Glucose 95 Calcium 8.6 Liver Function 07/22/24 Range/Units 04:48 Total Bilirubin 0.6 (0.2-1.3) mg/dL AST 23 (17-59) U/L ALT 18 (6-50) U/L Alkaline Phosphatase 65 (38-126) U/L Albumin 3.4 L (3.5-5.1) g/dL
--- NOTE | 2024-07-22 11:52 | PM.PNCARD ---
Progress Note: A&P Assessment and Plan (1) Atrial fibrillation: Code(s): I48.91 - Unspecified atrial fibrillation Status: Acute Plan 84-year-old man with asymptomatic, newly recognized atrial fibrillation. He is rate controlled and anticoagulated and is stable in my opinion for discharge at this time. I will arrange for timely follow-up in my office in about 1 month at which time we will make a decision regarding rhythm control versus rate control. Raul Zepeda MD [facility] Subjective Date/time seen: Date of service: 07/22/24 11:52 Interval history: Follow-up visit in this 84-year-old man with newly diagnosed atrial fibrillation. Patient was admitted to the hospital with non cardiovascular complaints had no symptoms of his arrhythmia. His heart rate is well controlled with metoprolol and systemic anticoagulation with apixaban has been initiated. Exam Const: General: comfortable and no acute distress HENMT: Mouth: Yes moist mucous membranes Eyes: Sclera: sclerae normal Neck: Neck: supple and no JVD Resp: Effort & Inspection: normal respiratory effort Auscultation: clear to auscultation bilaterally Cardio: Rate: regular rate Rhythm: abnormal rhythm irregularly irregular GI: GI Palp: Yes Soft to palpation Auscultation: normal bowel sounds Skin: General skin exam: normal color Neuro: Other: Alert and oriented x3 Extrem: General: normal to inspection Objective Data Vital Signs Vital Signs: Vital Signs - 24 hr 07/21/24 12:00 07/21/24 12:00 07/21/24 12:00 Temperature 36.6 C Pulse Rate 90 104 H Respiratory Rate 18 Blood Pressure 117/76 Pulse Oximetry 98 Oxygen Delivery Room Air 07/21/24 16:05 07/21/24 14:00 07/21/24 16:00 Temperature Pulse Rate 98 106 H 100 Respiratory Rate Blood Pressure Pulse Oximetry Oxygen Delivery 07/21/24 16:00 07/21/24 16:00 07/21/24 18:00 Temperature 36.9 C Pulse Rate 83 86 Respiratory Rate 18 Blood Pressure 111/76 Pulse Oximetry 97 Oxygen Delivery Room Air 07/21/24 19:08 07/21/24 20:00 07/21/24 20:00 Temperature 36.9 C Pulse Rate 98 94 94 Respiratory Rate 18 18 Blood Pressure 108/59 L Pulse Oximetry 99 99 Oxygen Delivery Room Air 07/21/24 22:00 07/22/24 00:00 07/22/24 00:00 Temperature Pulse Rate 104 H 104 H 104 H Respiratory Rate 20 Blood Pressure Pulse Oximetry 99 Oxygen Delivery Room Air 07/22/24 00:00 07/22/24 02:00 07/22/24 04:00 Temperature 36.6 C Pulse Rate 104 H 102 H 95 Respiratory Rate 20 20 Blood Pressure 134/84 Pulse Oximetry 99 99 Oxygen Delivery Room Air 07/22/24 04:00 07/22/24 04:00 07/22/24 06:00 Temperature 36.6 C Pulse Rate 95 95 108 H Respiratory Rate 18 Blood Pressure 115/72 Pulse Oximetry 99 Oxygen Delivery 07/22/24 07:55 07/22/24 08:00 07/22/24 11:32 Temperature 36.6 C 36.6 C Pulse Rate 112 H 94 Respiratory Rate 18 18 Blood Pressure 124/88 117/79 Pulse Oximetry 98 98 Oxygen Delivery Room Air Intake/Output Intake/Output: Intake & Output 07/19/24 07/20/24 07/21/24 07/22/24 23:59 23:59 23:59 23:59 Intake Total 49.2 1861.8 690 Balance 49.2 1861.8 690 Meds/Results Medications: Active Medications Generic Name Dose Route Start Last Admin Trade Name Freq PRN Reason Stop Dose Admin Acetaminophen 650 mg 07/20/24 19:31 07/22/24 02:13 Acetaminophen 325 Mg Tablet PO 650 mg Q4H PRN Administration Mild Pain (1-3) or Fever Apixaban 5 mg 07/21/24 21:00 07/22/24 09:33 Apixaban 5 Mg Tablet PO 5 mg Q12HR EUGENIO Administration Aspirin 81 mg 07/21/24 09:00 07/22/24 09:33 Aspirin 81 Mg Enteric Tablet PO 81 mg DAILY EUGENIO Administration Atorvastatin Calcium 40 mg 07/21/24 21:00 07/21/24 20:59 Atorvastatin 40 Mg Tablet PO 40 mg HS EUGENIO Administration Calcium Carbonate 500 mg 07/21/24 07:45 Calcium Carbonate (Tums) 500 Mg (200 Mg Elemental) PO BID PRN Indigestion Latanoprost 1 drop 07/21/24 21:00 07/21/24 21:00 Latanoprost 0.005% Op Soln 2.5 Ml Btl EACH EYE 1 drop HS EUGENIO Administration Lisinopril 20 mg 07/21/24 09:00 07/22/24 09:33 Lisinopril 20 Mg Tablet PO 20 mg DAILY EUGENIO Administration Metoprolol Succinate 100 mg 07/21/24 15:00 07/22/24 09:32 Metoprolol Succinate Ext Rel 100 Mg Tabcr PO 100 mg QAM EUGENIO Administration Multivitamins Therapeutic 1 tablet 07/21/24 09:00 07/22/24 09:33 Multivitamins Therapeutic Tab (*Bkc) PO 1 tablet DAILY EUGENIO Administration Multivitamins/Minerals 1 tablet 07/21/24 09:00 07/22/24 09:33 Opti-Gen Tab PO 1 tablet BID EUGENIO Administration Vitamin D 400 units 07/21/24 09:00 07/22/24 09:33 Cholecalciferol 400 Units Tablet (Vit D) PO 400 units DAILY EUGENIO Administration Radiology Results: ITS Impressions Chest X-Ray 07/20/24 17:14 IMPRESSION: 1. Mild streaky left basilar atelectasis. No other acute cardiopulmonary disease. Scrotum Ultrasound 07/20/24 17:37 IMPRESSION: Left testicular cyst. The right epididymal cyst. Left varicocele. Otherwise, normal testicular ultrasound. Labs Labs: Laboratory Results - last 24 hr 07/22/24 04:48 WBC 5.8 RBC 4.09 L Hgb 12.7 L Hct 39.1 L MCV 95.6 MCH 31.1 MCHC 32.5 RDW 14.9 H Plt Count 314 MPV 9.1 Immature Gran % (Auto) 0.3 Neut % (Auto) 72.8 Lymph % (Auto) 14.5 L [place] % (Auto) 9.1 H Eos % (Auto) 2.4 Baso % (Auto) 0.9 Lymph # (Auto) 0.84 L [place] # (Auto) 0.5 Eos # (Auto) 0.1 Baso # (Auto) 0.1 Abs Immat Gran (auto) 0.02 Absolute Neuts (auto) 4.2 Absolute Nucleated RBC 0.000 Nucleated RBC % 0.0 Sodium 135 L Potassium 4.1 Chloride 107 Carbon Dioxide 25 Anion Gap 3 L BUN 17 Creatinine 0.60 L Estim Creat Clear Calc 65 Estimated GFR > 60 Glucose 95 Calcium 8.6 Total Bilirubin 0.6 AST 23 ALT 18 Alkaline Phosphatase 65 Total Protein 6.0 L Albumin 3.4 L
--- NOTE | 2024-07-22 12:32 | P.DS_ITS ---
DS: Admitting Diagnosis Discharge Date 07/22/2024 Admitting Diagnosis AFib with RVR cyst of testis hypertension sleep apnea DS: Discharge Diagnosis Discharge Diagnosis (1) Atrial fibrillation with rapid ventricular response: Code(s): I48.91 - Unspecified atrial fibrillation Status: Acute (2) Cyst of testis: Code(s): N44.2 - Benign cyst of testis Status: Acute (3) Hypertension: Code(s): I10 - Essential (primary) hypertension Status: Acute (4) Sleep apnea: Qualifiers: Sleep apnea type: obstructive Qualified Code(s): G47.33 - Obstructive sleep apnea (adult) (pediatric) Code(s): G47.30 - Sleep apnea, unspecified Status: Acute DS: Summary Hospital Course Reason for hospitalization: AFib with RVR cyst of testis hypertension sleep apnea Hospital Course: 84-year-old male with a past medical history of coronary disease status post 2 stents, obstructive sleep apnea, prostate cancer status post TURP, hyperlipidemia, hypertension, and glaucoma who presented to the hospital from urgent care with complaint of with testicular pain and incidental finding of asymptomatic AFib RVR. An EKG was obtained on admission which showed Afib RVR with rate of 117. Troponins were negative x3. Patient was given a therapeutic dose of lovenox in the ED. BNP was elevated, TSH WNL. Chest XR showed Mild streaky left basilar atelectasis. No other acute cardiopulmonary disease. Patient was started on a Cardizem drip at 10 mg however blood pressures low, decreased to 5 mg then discontinued at midnight. Cardiology was consulted. Metoprolol 25 mg BID transitioned to 100 mg metoprolol succinate and patient started on eliquis 5 mg BID. Patients blood pressures remained controlled on these new medications, despite being off of his amlodipine. An echo was obtained and showed LVEF 50-55%. He is to follow up with his PCP about resuming this me dication if necessary. Patient is to follow up with the cardiology office in 1 month. At time of discharge patient is rate controlled. He denies chest pain, palpitations, shortness of breath, dizziness/lightheadedness. Patient was having left testicular pain, nontraumatic. Patient's UA did not indicate evidence of infection and scrotum is not swollen or erythematous to suggest acute infectious process. A Scrotum US showed left testicular cyst. Right epididymal cyst. Left varicocele. Otherwise, normal testicular US. Urology was consulted and no acute urologic surgical intervention indicated. Urology recommended scrotal support and as needed Tylenol and/or NSAIDs as tolerated. Patien is to follow-up with his urologist, Dr. Ivan. At time of discharge patient states that his testicular pain had resolved. Patient discharged home in stable condition. He is to follow up with cardiology and urology as scheduled and his PCP in 1 week. Status at Discharge Functional status at discharge: independent ambulation Time Spent with Patient Time attestation: Total time spent providing and/or coordinating discharge services: Time spent: Greater than 30 minutes Exam Narrative: AF HR 94 RR 18 SPO2 98 BP 117/79 General: male in no acute respiratory distress who is nontoxic appearing, lying semi recumbent in bed. HEENT: Normocephalic. Atraumatic. Extraocular movement intact. Sclera clear and anicteric. No facial asymmetry. Chest: Lungs are clear to auscultation bilaterally. No wheezes or crackles. CV: Heart was regular rate with irregularly irregular rhythm. S1/S2. No murmurs, gallops, or rubs. : No swelling, pain, erythema of the testicles. Abd: Abdomen was soft. Nontender. Nondistended. Positive bowel sounds. No organomegaly or masses. DS: Data Data Completed and Pending Completed studies during hospitalization: Chest XR scotum US Labs on day of discharge: Labs from last 24 hours 07/22/24 04:48 WBC 5.8 RBC 4.09 L Hgb 12.7 L Hct 39.1 L MCV 95.6 MCH 31.1 MCHC 32.5 RDW 14.9 H Plt Count 314 MPV 9.1 Immature Gran % (Auto) 0.3 Neut % (Auto) 72.8 Lymph % (Auto) 14.5 L [place] % (Auto) 9.1 H Eos % (Auto) 2.4 Baso % (Auto) 0.9 Lymph # (Auto) 0.84 L [place] # (Auto) 0.5 Eos # (Auto) 0.1 Baso # (Auto) 0.1 Abs Immat Gran (auto) 0.02 Absolute Neuts (auto) 4.2 Absolute Nucleated RBC 0.000 Nucleated RBC % 0.0 Sodium 135 L Potassium 4.1 Chloride 107 Carbon Dioxide 25 Anion Gap 3 L BUN 17 Creatinine 0.60 L Estim Creat Clear Calc 65 Estimated GFR > 60 Glucose 95 Calcium 8.6 Total Bilirubin 0.6 AST 23 ALT 18 Alkaline Phosphatase 65 Total Protein 6.0 L Albumin 3.4 L Discharge Plan Discharge Attending physician on discharge: Chino Lopez Consulting providers: Raul Zepeda; Santana Pineda Discharging Clinician: Yolanda Pike Anticipated Discharge Date/Time: 07/22/24 12:21 Patient Disposition: Home, Self-Care Activity: as tolerated Diet: as tolerated and heart healthy Discharge Instructions: Discharge disposition: Patient was admitted to the hospital for a new diagnosis of atrial fibrillation with rapid ventricular rate Cardiology evaluated patient during his admission Patient was started on new medications and has since been rate controlled Take medications as prescribed Discontinue metoprolol tartrate 25 mg BID Discontinue amlodipine 10 mg daily Continue all other medications as prescribed Started on metoprolol succinate 100 mg daily Started on Eliquis 5 mg twice a day Strict bleeding precautions since you are being started on Eliquis including shaving with an electric razor, holding pressure for greater than 20 minutes for injury, protection of had with any falls, etc. Follow up with cardiology in 1 month, call for an appointment Patient was endorsing scrotal pain Evaluated by urology and no acute intervention required Recommend scrotal support and tylenol as needed Follow up with Dr. Rodriguez in his office, call for an appointment Monitor blood pressures Take caution while standing, rising, or moving Change positions slowly taking a break between each position change If you are standing and feel dizzy sit back down and take a break Encouraged to continue with yearly vaccinations Return to the emergency department if he developed sudden shortness of breath, chest pain, nausea, vomiting, upset stomach or intractable diarrhea Return to the emergency department if you develop fever greater than 101.5 Follow-up with the primary care physician within 1-2 weeks Thank you for choosing [facility] for your healthcare needs Patient Instructions: Antibiotic Form, Metoprolol (By mouth), Apixaban (By mouth), A-fib (Atrial Fibrillation) (DC), Sleep Apnea (GEN) Patient Language: Occitan Stand Alone Forms: General Discharge Information Follow-up/Referrals: Raul Zepeda MD [Physician] - 4 Weeks Jesús Ivan MD [Physician] - Call for Appointment Kayla Lindquist APRN [Primary Care Provider] - 1 Week Discharge Medications: New Eliquis 5 mg Tablet 5 mg PO Q12HR Qty: 60 0RF metoprolol succinate [Toprol XL] 100 mg Tablet Extended Release 24 Hr 100 mg PO QAM Qty: 30 0RF Continued multivitamin [Multiple Vitamins] Tablet 1 tablet PO DAILY aspirin 81 mg tablet,delayed release (DR/EC) 81 mg PO DAILY latanoprost 0.005 % drops 1 drp EACH EYE HS [id number]-wfp-cddhjyf-ast [MegaRed [place]-3 Krill Oil] 860-36-59-50 mg capsule 1 cap PO DAILY PreserVision AREDS-2 250-90-40-1 mg capsule 1 tablet PO BID cholecalciferol (vitamin D3) 10 mcg (400 unit) tablet 10 mcg PO DAILY atorvastatin 40 mg tablet 40 mg PO HS calcium carbonate 500 mg calcium (1,250 mg) tablet,chewable 500 mg PO BID PRN (Reason: Indigestion) lisinopril 20 mg tablet 20 mg PO DAILY alendronate 35 mg tablet 35 mg PO WEEKLY Qty: 12 0RF Rx Instructions: 35 mg once weekly take the medication on an empty stomach and to wait at least 1 hour before eating drinking taking other medications Not lie down for at least 1 hour after taking the medication Patient takes medication on Mondays Held amlodipine 10 mg tablet 10 mg PO DAILY Hold Instructions: Resume on 09/23/24. Follow up with your PCP. Discontinued metoprolol tartrate 25 mg tablet 25 mg PO BID Date of admission: 07/20/24 19:31 Primary Care Provider: Kayla Lindquist Admitting Provider: Oziel Singh Attending physician on admission: Yolanda Pike Condition: Stable Hospitalist MIPS Heart Failure (Exclusion) Patient has history of Heart Transplant or Left Ventricular Assistive Device?: No IF YES, STOP HERE Heart Failure (Qualifier) Patient has current or prior documentation of LVEF less than or equal to 40%, or mod/servere depressed LVSF?: No IF NO, STOP HERE
== END 2024-07-22 13:57 | disposition home or self-care (01) ==
LOC: ANHED 19:42 → ANHIMU 21:09
PROVIDERS: Internal Medicine; Admitting Provider Internal Medicine; Emergency Provider Emergency Medicine; PCP Nurse Practitioner Family; Visit Provider Student in an Organized Health Care Education/Training Program
DX: I48.91 Unspecified atrial fibrillation (principal); N44.2 Benign cyst of testis; N50.3 Cyst of epididymis; I86.1 Scrotal varices; N50.812 Left testicular pain; G47.33 Obstructive sleep apnea (adult) (pediatric); I25.10 Atherosclerotic heart disease of native coronary artery without angina pectoris; Z95.5 Presence of coronary angioplasty implant and graft; I10 Essential (primary) hypertension; E78.2 Mixed hyperlipidemia; K21.9 Gastro-esophageal reflux disease without esophagitis; H40.9 Unspecified glaucoma; E55.9 Vitamin D deficiency, unspecified; M48.061 Spinal stenosis, lumbar region without neurogenic claudication; M81.0 Age-related osteoporosis without current pathological fracture; L82.1 Other seborrheic keratosis; Z86.16 Personal history of COVID-19; Z79.82 Long term (current) use of aspirin; Z79.899 Other long term (current) drug therapy; Z85.46 Personal history of malignant neoplasm of prostate; Z87.442 Personal history of urinary calculi; Z96.1 Presence of intraocular lens; Z98.42 Cataract extraction status, left eye; Z98.41 Cataract extraction status, right eye; Z96.612 Presence of left artificial shoulder joint; Z96.611 Presence of right artificial shoulder joint
CPT/HCPCS: 36415; 71045; 76870; 80053; 81003; 83880; 84443; 84484; 85025; 85610; 85730; 93005; 93976; 96365; 96366; 96372; 96375; 99285; A9270; C8929; G0378; J1650; Q9957

== ENCOUNTER 2024-09-28 09:32 | Emergency (ER) | payer MEDICARE, SELFPAY ==
--- NOTE | ~2024-09-28 | XR_ITS ---
EXAMINATION: XR lumbar spine min 4V DATE: 09/28/2024 12:17 INDICATION: Leg pain. TECHNIQUE: 5 views of lumbar spine were obtained. COMPARISON: None. FINDINGS: There is 11 degrees dextroscoliosis of lumbar spine. There is 3 mm retrolisthesis of L1 on L2, 6 mm retrolisthesis of L2 on L3 and L3 on L4, and 6 mm anterolisthesis of L5 on S1. There are chr onic bilateral L5 pars defects. Vertebral body heights are normal. There is severely decreased disc h eight from L1-L2 through L5-S1. There is multilevel severe facet joint osteoarthritis. IMPRESSION: 1. Severe lumbar spondylosis. 2. Chronic bilateral L5 pars defects with grade 1 anterolisthesis of L5 on S1. Reviewed, dictated and finalized at location A. OGRAPHIC PROOFER
[2024-09-28 09:52] VITALS: BP 172/91; PULSE 67; RESP 16; TEMP 36.5; O2SAT 99
--- OUTSIDE RECORDS SUMMARY | 2024-09-28 10:11 | XMS_ITS | Clinical Summary ---
Author Organization [facility] Address [address] [place] [address] Care Team Providers Care Hammer Fitter Name Role Phone Hung Espinal MD Primary Care Provider [phone] Allergies Active Allergy Reactions Criticality Noted Date Comments Iodine And Iodide Containing Products Hives Medium Medications omega-3 fatty acids-fish oil 340-1,000 mg capsule take 1 by Oral route 2 times every 0 3 Active aspirin (ASPIRIN LOW DOSE) 81 mg tablet take 1 Tablet (81MG) by oral route every day 0 3 Active cholecalcifero l (VITAMIN D3) 5,000 unit tablet take 1 by Oral route every day 0 3 Active glucosamine-D3 -Boswellia serr (OSTEO BI-FLEX, 5-LOXIN,) 1,500-400-100 mg-unit-mg tablet 0 3 Active latanoprost (XALATAN) 0.005 % ophthalmic solution instill 1 drop by ophthalmic route every day into affected eye(s) in the evening 0 3 Active vit C,E,Zn,Cu-omeg a3-lut-zeax (PRESERVISION AREDS 2, OMEGA-3,) 250-2.5-0.5 mg capsule take 1 by Oral route 2 times every day 0 3 Active lisinopril (PRINIVIL,ZEST RIL) 20 mg tablet take 1 tablet by oral route every day 0 0 6 Active MV-MINS/FOLIC/ LYCOPENE/GINKG O (ONE-A-DAY MEN 50 PLUS, GINKGO, ORAL) Take by mouth. A ctive acetaminophen (TYLENOL) 325 mg tablet Take 2 tablets (650 mg total) by mouth every 6 (six) hours as needed for pain Active atorvastatin (LIPITOR) 40 mg tablet Take 1 tablet (40 mg total) by mouth nightly at bedtime Active metoprolol XL (TOPROL-XL) 100 mg 24 hr tablet Take 1 tablet (100 mg total) by mouth every morning 4 Active Eliquis 5 mg tablet Take 1 tablet (5 mg total) by mouth every 12 (twelve) hours 180 tablet 1 5 Active Eliquis 5 mg tablet Take 1 tablet (5 mg total) by mouth every 12 (twelve) hours 4 09/21/19 25 Discontinu ed(Reorder ) Active Problems Problem Noted Date Diagnosed Date Coronary artery disease invo lving [place] heart without angina pectoris 07/07/2017 History of coronary artery stent placement 07/07 Osteoarthritis of glenohumeral joint 01/09/2017 Pain in shoulder 10/17/2016 Encounters Date Type Department Care Team Description 09/21/2024 Telephone [facility] Medical [facility] Cardiology [address] [place] [address] [place] [phone] Raul Zepeda MD Med Refill 08/25/2024 9:00 AM DIGITAL MANAGER Office Visit [facility] Cardiology [address] [place] [address] [place] [phone] Genny Swanson NP Persistent atrial fibrillation (HCC) (Primary Dx); Encounter for anticoagulation discussion and counseling; Hospital discharge follow-up; Essential hypertension; Coronary artery disease involving [place] coronary artery of [place] heart without angina pectoris 07/25/2024 Orders Only [facility] Cardiology [address] [place] [address] [place] [phone] Raul Zepeda MD 07/21/2024 Orders Only [facility] Health Information Management [address] [place] [phone] Anitra Gibson DO from Last 3 Months Medical History Medical History Date Comments Hypertension Hypertension Family History Medical History Relation Name Comments Heart attack Father 2 Myocardial Infa rction; Cause of : Myocardial Infarction Relation Name Status Comments Father 1 Father 2 Social History Tobacco Use Types Packs/Day Years Used Date Smoking Tobacco: Never Smokeless Tobacco: Never Tobacco Cessation:Counseling Given: Not Answered Alcohol Use Standard Drinks/Week Comments Yes 0 (1 standard drink = 0.6 oz pur e alcohol) Sex and Gender Information Value Date Recorded Sex Assigned at Not on file Legal Sex Male 2:11 AM DIGITAL MANAGER Gender Identity Not on file Sexual Orientation Not on file Obstetrics History Last Filed Vital Signs Vital Sign Reading Time Taken Comments Blood Pressure 126/74 08/25/2024 8:54 AM DIGITAL MANAGER Pulse 95 08/25/2024 8:54 AM DIGITAL MANAGER Temperature 36.8 ??C (98.3 ??F) 12/28/2012 9:00 AM CD T Respiratory Rate - - Oxygen Saturation 98% 08/25/2024 8:54 AM DIGITAL MANAGER Inhaled Oxygen Concentration - - Weight 71.2 kg (157 lb) 08/25/2024 8:54 AM DIGITAL MANAGER Height 160 cm (5' 3 ) 08/25/2024 8:54 AM DIGITAL MANAGER Body Mass Index 27.81 08/25/2024 8:54 AM DIGITAL MANAGER Plan of Treatment Health Maintenance Due Date Last Done Comments Depression Screening 1940 Fall Risk Assessment 1940 DTaP/Tdap/Td Vaccine (1 - Tdap) 1951 Hepatitis B Screening 1958 Pneumococcal vaccine 65+ (1 of 1 - PCV) 2005 Well Visit 65+ 2005 Zoster Vaccine (2 of 3) 10/19/2008 08/24/2008 Influenza Vaccine (#1) 2024 9, 05/21/2018, 05/06/2018, Additional history exists Procedures Procedure Name Priority Date/Time Associated Diagnosis Comments CARDIOLOGY DOCUMENT SCAN Routine 07/22/2024 4:40 PM DIGITAL MANAGER CARDIOLOGY DOCUMENT SCAN Routine 07/21/2024 4:30 PM DIGITAL MANAGER CARDIOLOGY DOCUMENT SCAN 07/21/2024 from Last 3 Months Results * Cardiology Document Scan (07/22/2024 4:40 PM DIGITAL MANAGER) Anatomical Region Laterality Modality Other us Raul Zepeda MD CV CARDIAC SERVICES PROC EDURES Final Result * Cardiology Document Scan (07/21/2024 4:30 PM DIGITAL MANAGER) Anatomical Region Laterality Modality Other us Raul Zepeda MD CV CARDIAC SERVICES PROC EDURES Final Result * Cardiology Document Scan (07/21/2024) Anatomical Region Laterality Modality Other us Anitra Alejon DO CV CARDIAC SERVICES PROCEDURES Final Result from Last 3 Months Insurance [facility] Address: [address] [address] [place] [address] MEDICARE SOLUTIONS [facility] Address: [address] [address] [place] [address] Care Teams Hammer Fitter Relationship Specialty Start Date End Date Hung Espinal MD PCP - General Family Practice 09/17/23
--- OUTSIDE RECORDS SUMMARY | 2024-09-28 10:11 | XMS_ITS | Clinical Summary ---
Author Organization [employer] [id number] [facility] Address [address] [place] [address] Care Team Providers Care Diamond Sander Name Role Phone Alessandro Sparks Primary Care Provider Allergies Active Allergy Reactions Criticality Noted Date Comments Iodine Itching Low 12/18/2020 Medications lisinopriL (PRINIVIL) 20 mg tablet Take 20 mg by mouth daily. Active atorvastatin (LIPITOR) 40 mg tablet Take 40 mg by mouth daily. Active amLODIPine (NORVASC) 10 mg tablet Take 10 mg by mouth daily. Active metoprolol tartrate (LOPRESSOR) 25 mg tablet Take 25 mg by mouth 2 times daily. Active aspirin (VITALY CHEWABLE) 81 mg Tablet, Chewable Take 81 mg by mouth daily. Active multivitamin (DAILY-CHRISTELLE) tablet Take 1 Tablet by mouth daily. Active C,E,zinc,copper 11/rutpi2f/lut (OCUVITE ADULT 50 PLUS ORAL) Take by mouth. Active cartilage/collag en/bor/hyalur (JOINT HEALTH ORAL) Take by mouth. Active Cholecalciferol, Vitamin D3, 50 mcg (2,000 unit) Capsule Take by mouth. Active ibuprofen-acetam inophen (AdviL Dual Action) 125-250 mg Tablet Take by mouth. Active Active Problems Problem Noted Date Diagnosed Date Other spondylosis with radiculopathy, lumbar reg ion 12/18/2020 Spinal stenosis, lumbar yonatan on, without neurogenic claudication 12/18/2020 Social History Tobacco Use Types Packs/Day Years Used Date Smoking Tobacco: Never Assessed Sex and Gender Information Value Date Recorded Sex Assigned at Not on file Legal Sex Male 10:03 AM CDT Gender Identity Not on file Sexual Orientation Not on file Plan of Treatment Health Maintenance Due Date Last Done Comments DTAP/TDAP/TD VACCINES (1 - Tdap) 1959 PNEUMOCOCCAL VACCINE 65+ YEA RS (1 of 1 - PCV) 1990 ZOSTER VACCINE (1 of 2) 1990 RSV VACCINE (60+ or ) (1 - 1-dose 75+ series) 2015 INFLUENZA VACCINE (#1) 2024 9, 05/07/2018, 05/15/2016, Additional history exists Care Teams Diamond Sander Relationship Specialty Start Date End Date Alessandro Sparks DO [address] [facility] [address] [place] [phone] PCP - General Internal Medicine 11/15/20
--- OUTSIDE RECORDS SUMMARY | 2024-09-28 10:11 | XMS_ITS | Encounter Summary ---
Author Organization [facility] Healthcare Address [address] [place] [address] Care Team Providers Care Superintendent Production Name Role Phone Hung Espinal MD Primary Care Provider [phone] Encounter Details Date Type Department Care Team (Late st Contact Info) Description 07/21/2024 Orders Only [facility] Health Information Management [address] [place] [phone] Anitra Gibson DO [address] [address] Social History Tobacco Use Types Packs/Day Years Used Date Smoking Tobacco: Never Smokeless Tobacco: Never Alcohol Use Standard Drinks/Week Comments Yes 0 (1 standard drink = 0.6 oz pur e alcohol) Sex and Gender Information Value Date Recorded Sex Assigned at Not on file Legal Sex Male 2:11 AM SODA CLERK Gender Identity Not on file Sexual Orientation Not on file documented as of this encounter Plan of Treatment Not on file documented as of this encounter Procedures Procedure Name Priority Date/Time Associated Diagnosis Comments CARDIOLOGY DOCUMENT SCAN 07/21/2024 documented in this encounter Results * Cardiology Document Scan (07/21/2024) Anatomical Region Laterality Modality Other us Anitra Gibson DO CV CARDIAC SERVICES PROCEDURES Final Result documented in this encounter Visit Diagnoses Not on filedocumented in this encounter Care Teams Superintendent Production Relationship Specialty Start Date End Date Hung Espinal MD PCP - General Family Practice 09/17/23 documented as of this encounter
--- OUTSIDE RECORDS SUMMARY | 2024-09-28 10:11 | XMS_ITS | Referral Summary ---
Author Organization [facility] Address [address] [place] [address] Care Team Providers Care Care Attendant Name Role Phone Hung Espinal MD Primary Care Provider [phone] Encounters Date Type Department Care Team Description 09/21/2024 Telephone [facility] Cardiology [address] [facility] [address] [phone] Raul Zepeda MD Med Refill 08/25/2024 9:00 AM DESULPHURING OPERATOR Office Visit [facility] Cardiology [address] [place] [phone] Genny Swanson NP Persistent atrial fibrillation (HCC) (Primary Dx); Encounter for anticoagulation discussion and counseling; Hospital discharge follow-up; Essential hypertension; Coronary artery disease involving [place] coronary artery of [place] heart without angina pectoris 07/25/2024 Orders Only [facility] Cardiology [address] [place] [phone] Raul Zepeda MD 07/21/2024 Orders Only [facility] Health Information Management [address] [place] [phone] Anitra Gibson DO from Last 3 Months Allergies Active Allergy Reactions Criticality Noted Date [...] Diagnosed Date Coronary artery disease invo lving [place] heart without angina pectoris 07/07/2017 History of coronary artery stent placement 07/07 Osteoarthritis of glenohumeral joint 01/09/2017 Pain in shoulder 10/17/2016 Social History Tobacco Use Types Packs/Day Years Used Date Smoking Tobacco: Never Smokeless Tobacco: Never Tobacco Cessation:Counseling Given: Not Answered Alcohol Use Standard Drinks/Week Comments Yes 0 (1 standard drink = 0.6 oz pur e alcohol) Sex and Gender Information Value Date Recorded Sex Assigned at Not on file Legal Sex Male 2:11 AM DESULPHURING OPERATOR Gender Identity Not on file Sexual Orientation Not on file Last Filed Vital Signs Vital Sign Reading Time Taken Comments Blood Pressure 126/74 08/25/2024 8:54 AM DESULPHURING OPERATOR Pulse 95 08/25/2024 8:54 AM DESULPHURING OPERATOR Temperature 36.8 ??C (98.3 ??F) 12/28/2012 9:00 AM CD T Respiratory Rate - - Oxygen Saturation 98% 08/25/2024 8:54 AM DESULPHURING OPERATOR Inhaled Oxygen Concentration - - Weight 71.2 kg (157 lb) 08/25/2024 8:54 AM DESULPHURING OPERATOR Height 160 cm (5' 3 ) 08/25/2024 8:54 AM DESULPHURING OPERATOR Body Mass Index 27.81 08/25/2024 8:54 AM DESULPHURING OPERATOR Plan of Treatment Not on file Procedures Procedure Name Priority Date/Time Associated Diagnosis Comments CARDIOLOGY DOCUMENT SCAN Routine 07/22/2024 4:40 PM DESULPHURING OPERATOR CARDIOLOGY DOCUMENT SCAN Routine 07/21/2024 4:30 PM DESULPHURING OPERATOR CARDIOLOGY DOCUMENT SCAN 07/21/2024 from Last 3 Months Results * Cardiology Document Scan (07/22/2024 4:40 PM DESULPHURING OPERATOR) Anatomical Region Laterality Modality Other Raul Zepeda MD CV CARDIAC SERVICES PROC EDURES Final Result * Cardiology Document Scan (07/21/2024 4:30 PM DESULPHURING OPERATOR) Anatomical Region Laterality Modality Other Raul Zepeda MD CV CARDIAC SERVICES PROC EDURES Final Result * Cardiology Document Scan (07/21/2024) Anatomical Region Laterality Modality Other Anitra Gibson DO CV CARDIAC SERVICES PROCEDURES Final Result from Last 3 Months Insurance [facility] MEDICARE SOLUTIONS Member Subscriber Plan / Payer (Ef fective 2024-Present) Name:Khoa Philippe Relation to Subscriber:Self Name:Philippe Khoa J Payer ID:[id number] (NAIC) Type:[facility] MED[facility] Address: [place] [phone] [address] [place] [phone] Care Teams Care Attendant Relationship Specialty Start Date End Date Hung Espinal MD PCP - General Family Practice 09/17/23
--- OUTSIDE RECORDS SUMMARY | 2024-09-28 10:11 | XMS_ITS | Continuity of Care Document ---
Author Organization [facility] Address [address] [place] [address] [address] [facility] [address] [place] [address] Phone Care Team Providers Care Wharf Helper Name Role Phone Corrine Caro Unavailable Unavailable Procedures Procedure Date Eye Exam & Treatment Refraction Advance Directives Directive Yes / No Effective Date File Name No Information Encounters Encounter Description Practice Location Reason(s) For Visit Diagnoses Date Provider Providers Copied on Encounter [facility], [address] [place] [address] [address], [place], [place], [id number], [place] tel:[phone] [facility] No Information 0 Vania Castle. [address] , [address], [place], [address], [place]. tel:[phone] Family History Family Member Type Diagnosis Age At Onset No Information Payers Payer name Insurance type Covered libertarian ID Authoriza tion(s) No Information Social History Type Description Quantity Date Captured Comments Sex Male Smoking Status No Information Chief Complaint And Reason For Visit No Information Reason For Referral Reason For Referral No Information History Of Present Illness Encounter Date Complaint History Of Prese nt Illness No Information Functional Status Date Functional Assessmen t No Information Instructions Date Instruction Additional Infor mation No Information Assessments Type Assessment Date No Information Patient Care Teams Name Effective Dates (start - stop) Status Members No Information
--- NOTE | 2024-09-28 10:57 | PC.NURSE ---
1st call no answer
--- NOTE | 2024-09-28 11:48 | PC.NURSE ---
veronica trevino - lumbar xr order
--- NOTE | 2024-09-28 12:47 | ED.GENADULT ---
HPI - General Adult General Chief complaint: Extremity Problem,Nontraumatic Stated complaint: r hip pain Time Seen by Provider: 09/28/24 11:57 History of Present Illness HPI narrative: patient is a 84-year-old gentleman presents emergency department with chief complaint of right hip pain radiating down his right leg. The patient states he has had pain for over a month reports that he had physical therapy 9 and reports that he still having pain even though he has been doing therapy. Patient states he has been taking Advil at home for the pain and reports that he still keeps having episodes. The patient denies numbness or tingling denies footdrop denies saddle anesthesia denies bowel or bladder incontinence. Related Data Home Medications ?Medication ?Instructions ?Recorded ?Confirmed ?Last Taken ?Type aspirin 81 mg tablet,delayed 81 mg PO DAILY 11/14/20 08/04/24 07/20/24 History release latanoprost 0.005 % eye drops 1 drp EACH EYE HS 11/14/20 08/04/24 Unknown History multivitamin (Multiple Vitamins 1 tablet PO DAILY 11/14/20 08/04/24 07/20/24 History tablet) cholecalciferol (vitamin D3) 10 10 mcg PO DAILY 11/19/21 08/04/24 07/20/24 History mcg (400 unit) tablet vit C 250 mg-vit E 90 mg-zinc 40 1 tablet PO BID 11/19/21 08/04/24 07/20/24 History mg-copper 1 bk-gafhca-rddbfl capsule (PreserVision AREDS-2) krill 300 mg-omega 3 90 mg-dha 24 1 cap PO DAILY 02/02/23 08/04/24 07/20/24 History mg-epa 50 ci-zmbhata-dstto capsule (MegaRed [place]-3 Krill Oil) atorvastatin 40 mg tablet 40 mg PO HS 07/20/24 08/04/24 07/19/24 History lisinopril 20 mg tablet 20 mg PO DAILY 07/20/24 08/04/24 07/20/24 History calcium carbonate 500 mg PO DAILY PRN Indigestion 08/04/24 08/04/24 Unknown History Allergies Allergy/AdvReac Type Severity Reaction Status Date / Time ioversol Allergy Severe Itching Verified 08/04/24 11:15 iodine Allergy Unknown ITCHING Verified 08/04/24 11:15 WITH IV CONTRAST--NO PROBLEM WITH TOPICAL IODINE Review of Systems Review of Systems: A 10 system review of systems was completed on the patient and is negative except for what is stated in the HPI. Nursing and ancillary documentation was reviewed. 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) 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 bleeding CAD (coronary artery disease) With angioplasty and 2 stents in 1999 COVID Prostate cancer 2021 Vitamin D deficiency Left foot drop Lumbar spinal stenosis Essential (primary) hypertension Gastro-esophageal reflux disease without esophagitis Glaucoma History of prostate cancer Mixed hyperlipidemia Seborrheic keratosis Surgical History Surgical History Status post cataract extraction of both eyes with insertion of intraocular lens Status post total replacement of right shoulder History of eye surgery left eye retinal surgery History of coronary artery stent placement , 1999 Status post total replacement of left shoulder Family History Family History Father Family history of heart disease in male family member before age 55, Onset Age: 58 Hypertension Acute myocardial infarction Heart disease Mother Bladder cancer Cerebrovascular accident Sibling , 2021 Liver cancer, primary, with metastasis from liver to other site sister Social History Social History Social History: He has been for 63 years. He and his raised 1 daughter and 1 son. 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 He drinks 1 glass of wine couple of times a month. He is a lifelong nonsmoker and denies history of illicit substance use. He works out at least once a week at [employer] usually on the treadmill. Code status: Full code Surrogate decision maker: Smoking status: Never smoker Second hand tobacco smoke exposure: No Alcohol intake: never Alcohol use details: occasionally Substance use: never Substance use type: does not use Do You Feel Safe in your Home?: Yes Lack of Transportation: No Lack of Food: Never True Current Housing: I Have Housing Concerned About Future Housing: No Difficulty Paying Gas/Electric Bills: No Difficulty Paying for Meds: No Currently Unemployed: No Education: Trade/Vocational Certificate Difficulty w/ Childcare or Family Care: No Living arrangements: with family Occupation/Education: retired Gender identity (if verbalized by the patient): Male Spiritual care concerns: No Exam Narrative: GENERAL: Well-appearing, well-nourished, and in no acute distress. HEAD: Normocephalic, atraumatic. EYES: PERRLA and EOMI. ENT: Nares clear, no rhinorrhea or epistaxis. Mucous membranes moist. NECK: Supple. CHEST: Clear to auscultation. No respiratory distress. HEART: Regular rate and rhythm. No murmur heard. Normal peripheral pulses. ABDOMEN: Soft, nontender, nondistended, normal active bowel sounds. EXTREMITIES: Normal range of motion. No edema. SKIN: Warm, dry, no rash. NEURO: No focal deficits. Alert and oriented x3. No saddle anesthesia no footdrop PSYCH: Normal mood and affect. Course Vital Signs Vital signs: Vital Signs Temperature 36.5 C 09/28/24 09:52 Pulse Rate 67 09/28/24 09:52 Respiratory Rate 16 09/28/24 09:52 Blood Pressure 172/91 H 09/28/24 09:52 Pulse Oximetry 99 09/28/24 09:52 Temperature 36.5 C 09/28/24 09:52 Pulse Rate 67 09/28/24 09:52 Respiratory Rate 16 09/28/24 09:52 Blood Pressure 172/91 H 09/28/24 09:52 Pulse Oximetry 99 09/28/24 09:52 Medical Decision Making [facility] Narrative Medical decision making narrative: differential diagnosis includes lumbar radiculopathy, sciatica, low back pain, plain film x-rays lumbar spine showed no evidence of fracture patient was started on oral flex and prednisone Vital Signs Vital Signs: Vital Signs Temperature 36.5 C 09/28/24 09:52 Pulse Rate 67 09/28/24 09:52 Respiratory Rate 16 09/28/24 09:52 Blood Pressure 172/91 H 09/28/24 09:52 Pulse Oximetry 99 09/28/24 09:52 Temperature 36.5 C 09/28/24 09:52 Pulse Rate 67 09/28/24 09:52 Respiratory Rate 16 09/28/24 09:52 Blood Pressure 172/91 H 09/28/24 09:52 Pulse Oximetry 99 09/28/24 09:52 Discharge Plan Discharge Clinical Impression: Spondylolisthesis of lumbar region, Low back pain Patient Disposition: Home, Self-Care Condition: Stable Instructions: Antibiotic Form, Lumbar Radiculopathy (ED), Back Pain (ED), Lower Back Exercises (ED) Patient Language: Macanese Prescriptions: New orphenadrine citrate 100 mg tablet extended release 100 mg PO Q12H PRN (Reason: muscle pain) Qty: 30 0RF prednisone 20 mg tablet 40 mg PO DAILY 5 Days Qty: 10 0RF No Action multivitamin [Multiple Vitamins] Tablet 1 tablet PO DAILY aspirin 81 mg tablet,delayed release (DR/EC) 81 mg PO DAILY latanoprost 0.005 % drops 1 drp EACH EYE HS nxxxd-te-7-sgm-bxz-fngwzsq-ast [MegaRed [place]-3 Krill Oil] 092-29-78-50 mg capsule 1 cap PO DAILY PreserVision AREDS-2 250-90-40-1 mg capsule 1 tablet PO BID cholecalciferol (vitamin D3) 10 mcg (400 unit) tablet 10 mcg PO DAILY methylprednisolone [Medrol (Camilo)] 4 mg tablets,dose pack See Rx Instructions PO PER PKG DIR Qty: 21 0RF Rx Instructions: PO PER PKG DIR atorvastatin 40 mg tablet 40 mg PO HS lisinopril 20 mg tablet 20 mg PO DAILY Eliquis 5 mg Tablet 5 mg PO Q12HR Qty: 60 0RF metoprolol succinate [Toprol XL] 100 mg Tablet Extended Release 24 Hr 100 mg PO QAM Qty: 30 0RF calcium carbonate 500 mg calcium (1,250 mg) tablet,chewable 500 mg PO DAILY PRN (Reason: Indigestion) alendronate 35 mg tablet See Rx Instructions .ROUTE .COMPLEX Qty: 12 0RF Dose Instruction: TAKE 1 TABLET BY MOUTH WEEKLY ON AN EMPTY STOMACH AND FULL GLASS OF WATER. WAIT 1 HOUR BEFORE ANYTHING ELSE BY MOUTH OR LYING DOWN Rx Instructions: TAKE 1 TABLET BY MOUTH WEEKLY ON AN EMPTY STOMACH AND FULL GLASS OF WATER. WAIT 1 HOUR BEFORE ANYTHING ELSE BY MOUTH OR LYING DOWN Follow-up/Referrals: Kayla Lindquist APRN [Primary Care Provider] - Time of Disposition: 12:52
--- OUTSIDE RECORDS SUMMARY | 2024-09-28 13:28 | XMS_ITS | Referral Summary ---
Author Organization [facility] Address [address] [place] [address] Care Team Providers Care Robotic Welder Name Role Phone Hung Espinal MD Primary Care Provider [phone] [phone] Encounters Date Type Department Care Team Description 09/21/2024 Telephone [facility] Cardiology 10 [facility] [address] [phone] Raul Zepeda MD Med Refill 08/25/2024 9:00 AM HOSIERY PAIRER Office Visit [facility] Cardiology [address] [place] [phone] Genny Swanson NP Persistent atrial fibrillation (HCC) (Primary Dx); Encounter for anticoagulation discussion and counseling; Hospital discharge follow-up; Essential hypertension; Coronary artery disease involving southern ute coronary artery of southern ute heart without angina pectoris 07/25/2024 Orders Only [facility] Cardiology [address] [place] [phone] Raul Zepeda MD 07/21/2024 Orders Only [facility] Health Information Management [address] [place] [phone] Anitra Gibson DO from Last 3 [...] Diagnosed Date Coronary artery disease invo lving southern ute heart without angina pectoris 07/07/2017 History of [...] on file Legal Sex Male 2:11 AM HOSIERY PAIRER Gender Identity Not on file Sexual Orientation Not on file Last Filed Vital Signs Vital Sign Reading Time Taken Comments Blood Pressure 126/74 08/25/2024 8:54 AM HOSIERY PAIRER Pulse 95 08/25/2024 8:54 AM HOSIERY PAIRER Temperature 36.8 ??C (98.3 ??F) 12/28/2012 9:00 AM CD T Respiratory Rate - - Oxygen Saturation 98% 08/25/2024 8:54 AM HOSIERY PAIRER Inhaled Oxygen Concentration - - Weight 71.2 kg (157 lb) 08/25/2024 8:54 AM HOSIERY PAIRER Height 160 cm (5' 3 ) 08/25/2024 8:54 AM HOSIERY PAIRER Body Mass Index 27.81 08/25/2024 8:54 AM HOSIERY PAIRER Plan of Treatment Not on file Procedures Procedure Name Priority Date/Time Associated Diagnosis Comments CARDIOLOGY DOCUMENT SCAN Routine 07/22/2024 4:40 PM HOSIERY PAIRER CARDIOLOGY DOCUMENT SCAN Routine 07/21/2024 4:30 PM HOSIERY PAIRER CARDIOLOGY DOCUMENT SCAN 07/21/2024 from Last 3 Months Results * Cardiology Document Scan (07/22/2024 4:40 PM HOSIERY PAIRER) Anatomical Region Laterality Modality Other Raul Zepeda MD CV CARDIAC SERVICES PROC EDURES Final Result * Cardiology Document Scan (07/21/2024 4:30 PM HOSIERY PAIRER) Anatomical Region Laterality Modality Other Raul Zepeda MD CV CARDIAC SERVICES PROC EDURES Final Result * Cardiology Document Scan (07/21/2024) Anatomical Region Laterality Modality Other Anitra Gibson DO CV CARDIAC SERVICES PROCEDURES Final Result from Last 3 Months Insurance [facility] MDCR HMO REF [facility] MEDICARE Address: [address] [place], [place] [id number] MEDICARE SOLUTIONS [facility] MEDICARE Address: [place] [id number] [address] [place] [phone] Care Teams Robotic Welder Relationship Specialty Start Date End Date Hung Espinal MD PCP - General Family Practice 09/17/23
--- OUTSIDE RECORDS SUMMARY | 2024-09-28 13:28 | XMS_ITS | Clinical Summary ---
Author Organization [employer] [id number] [facility] Address [address] [place] [address] Care Team Providers Care Cardiac Care Unit Nurse Name Role Phone Alessandro Sparks Primary Care [...] 1 Tablet by mouth daily. Active C,E,zinc,copper 11/uhsdm7p/lut (OCUVITE ADULT 50 PLUS ORAL) Take by [...] 05/07/2018, 05/15/2016, Additional history exists Care Teams Cardiac Care Unit Nurse Relationship Specialty Start Date End Date Alessandro Sparks DO 68[address] [facility] [address] [place] [phone] PCP - General Internal Medicine 11/15/20
--- OUTSIDE RECORDS SUMMARY | 2024-09-28 13:28 | XMS_ITS | Clinical Summary ---
Author Organization [facility] Address [address] [place] [address] Care Team Providers Care Aerospace Engineer Officer Armament Name Role Phone Hung Espinal MD Primary Care Provider [phone] [phone] Allergies Active Allergy Reactions Criticality Noted Date [...] Diagnosed Date Coronary artery disease invo lving osage heart without angina pectoris 07/07/2017 History of coronary artery stent placement 07/07 Osteoarthritis of glenohumeral joint 01/09/2017 Pain in shoulder 10/17/2016 Encounters Date Type Department Care Team Description 09/21/2024 Telephone [facility] Medical [facility] Cardiology [address] [place] [address] [address] [place] [phone] Raul Zepeda MD Med Refill 08/25/2024 9:00 AM RENEWABLE ENERGY DIVISION MANAGER Office Visit [facility] Cardiology [address] [place] [address] [address] [place] [phone] Genny Swanson NP Persistent atrial fibrillation (HCC) (Primary Dx); Encounter for anticoagulation discussion and counseling; Hospital discharge follow-up; Essential hypertension; Coronary artery disease involving osage coronary artery of osage heart without angina pectoris 07/25/2024 Orders Only [facility] Cardiology [address] [place] [address] [address] [place] [phone] Raul Zepeda MD 07/21/2024 Orders Only [facility] Health Information Management [address] [place] [phone] Anitra Gibson DO from Last 3 Months [...] on file Legal Sex Male 2:11 AM RENEWABLE ENERGY DIVISION MANAGER Gender Identity Not on file Sexual Orientation Not on file Obstetrics History Last Filed Vital Signs Vital Sign Reading Time Taken Comments Blood Pressure 126/74 08/25/2024 8:54 AM RENEWABLE ENERGY DIVISION MANAGER Pulse 95 08/25/2024 8:54 AM RENEWABLE ENERGY DIVISION MANAGER Temperature 36.8 ??C (98.3 ??F) 12/28/2012 9:00 AM CD T Respiratory Rate - - Oxygen Saturation 98% 08/25/2024 8:54 AM RENEWABLE ENERGY DIVISION MANAGER Inhaled Oxygen Concentration - - Weight 71.2 kg (157 lb) 08/25/2024 8:54 AM RENEWABLE ENERGY DIVISION MANAGER Height 160 cm (5' 3 ) 08/25/2024 8:54 AM RENEWABLE ENERGY DIVISION MANAGER Body Mass Index 27.81 08/25/2024 8:54 AM RENEWABLE ENERGY DIVISION MANAGER Plan of Treatment Health Maintenance Due [...] CARDIOLOGY DOCUMENT SCAN Routine 07/22/2024 4:40 PM RENEWABLE ENERGY DIVISION MANAGER CARDIOLOGY DOCUMENT SCAN Routine 07/21/2024 4:30 PM RENEWABLE ENERGY DIVISION MANAGER CARDIOLOGY DOCUMENT SCAN 07/21/2024 from Last 3 Months Results * Cardiology Document Scan (07/22/2024 4:40 PM RENEWABLE ENERGY DIVISION MANAGER) Anatomical Region Laterality Modality Other us Raul Zepeda MD CV CARDIAC SERVICES PROC EDURES Final Result * Cardiology Document Scan (07/21/2024 4:30 PM RENEWABLE ENERGY DIVISION MANAGER) Anatomical Region Laterality Modality Other us Raul Zepeda MD CV CARDIAC SERVICES PROC EDURES Final Result * Cardiology Document Scan (07/21/2024) Anatomical Region Laterality Modality Other us Antira Alejon DO CV CARDIAC SERVICES PROCEDURES Final Result from Last 3 Months Insurance [facility]IC[facility] Address: [address] [address] [place] [address] MEDICARE SOLUTIONS [facility] MED[facility] Address: [address] [address] [place] [address] Care Teams Aerospace Engineer Officer Armament Relationship Specialty Start Date End Date Hung Espinal MD PCP - General Family Practice 09/17/23
--- OUTSIDE RECORDS SUMMARY | 2024-09-28 13:28 | XMS_ITS | Encounter Summary ---
Author Organization [facility] Address [address] [place] [address] Care Team Providers Care Legal Nurse Consultant Name Role Phone Hung Espinal MD Primary Care Provider [phone] [phone] Encounter Details Date Type Department Care Team (Late st Contact Info) Description 07/21/2024 Orders Only [facility] Health Information Management [address] [place] [address] Anitra Gibson DO [address] [address] Social History Tobacco Use Types Packs/Day Years Used Date Smoking Tobacco: Never Smokeless Tobacco: Never Alcohol Use Standard Drinks/Week Comments Yes 0 (1 standard drink = 0.6 oz pur e alcohol) Sex and Gender Information Value Date Recorded Sex Assigned at Not on file Legal Sex Male 2:11 AM COREMAKER EXPERIMENTAL Gender Identity Not on file Sexual Orientation [...] on filedocumented in this encounter Care Teams Legal Nurse Consultant Relationship Specialty Start Date End Date Hung Espinal MD PCP - General Family Practice 09/17/23 documented as of this encounter
--- OUTSIDE RECORDS SUMMARY | 2024-09-28 13:28 | XMS_ITS | Continuity of Care Document ---
Author Organization [facility] Address [address] [place] [address] Exec utive [facility] [address] [place] [address] Phone Care Team Providers Care Underwriting Director Name Role Phone Corrine Caro Unavailable Unavailable Procedures Procedure Date Eye Exam & Treatment Refraction Advance Directives Directive Yes / No Effective Date File Name No Information Encounters Encounter Description Practice Location Reason(s) For Visit Diagnoses Date Provider Providers Copied on Encounter [facility], [address] [place] [address] [address], [place], [place], [id number], [place] tel:[phone] [facility] No Information 0 Van[address] [place]. [address] , [address], [place], [address], [place]. tel:[phone] Family History Family Member Type Diagnosis Age At Onset No Information Payers Payer name Insurance type Covered green party ID Authoriza tion(s) No Information Social History [...]
[2024-09-28] MEDS: predniSONE 20 MG TABLET 60 MG PO (13:35)
[2024-09-28] MEDS: ORPHENADRINE CITRATE 100 MG TABLET.ER PO (13:35)
[2024-09-28] MEDS: HYDROcodone/acetaminophen (*CRX) 5-325 MG TABLET 1 TAB PO (13:35)
[2024-09-28 13:52] VITALS: BP 181/101; PULSE 67; RESP 16; TEMP 36.6; O2SAT 98
== END 2024-09-28 13:54 | disposition home or self-care (01) ==
PROVIDERS: Emergency Provider Emergency Medicine; PCP Nurse Practitioner Family
DX: M43.16 Spondylolisthesis, lumbar region (principal); Z79.82 Long term (current) use of aspirin; M81.0 Age-related osteoporosis without current pathological fracture; I25.10 Atherosclerotic heart disease of native coronary artery without angina pectoris; E55.9 Vitamin D deficiency, unspecified; Z85.46 Personal history of malignant neoplasm of prostate; I10 Essential (primary) hypertension; E78.2 Mixed hyperlipidemia; H40.9 Unspecified glaucoma
CPT/HCPCS: 72110; 99283; A9270; J7512

== ENCOUNTER 2024-10-27 14:23 | Outpatient (CLI) | payer MEDICARE, SELFPAY ==
--- NOTE | ~2024-10-27 | MR_ITS ---
EXAMINATION: MR lumbar spine wo con DATE: 10/27/2024 15:25 INDICATION: Other spondylosis with radiculopathy, lumbar region. TECHNIQUE: Magnetic resonance imaging (MRI) of the lumbar spine was performed without intravenous con trast. Sequences included sagittal T2-weighted FSE, sagittal T2-weighted FS FSE, sagittal T1-weighted FSE, and axial T2-weighted FSE. COMPARISON: Lumbar spine MRI 11/22/2020 FINDINGS: There is 7 degrees dextrocurvature of thoracolumbar spine. There are chronic bilateral L5 p ars defects. There is 6 mm retrolisthesis of L1 on L2, L2 on L3, and L3 on L4 and 3 mm anterolisthesi s of L5 on S1. There is mild chronic anterior wedging of T12 and L1 vertebral bodies. There is severe ly decreased disc height from L1-L2 through L5-S1. The distal spinal cord signal intensity is normal. The conus medullaris is at L1. There are cysts in the kidneys measuring up to 5.4 cm on the left. Th e following disc levels are specifically discussed: L1-L2: The disc is bulging with superimposed large right subarticular zone extrusion with 18 mm infer ior extension. There is moderate bilateral facet joint osteoarthritis. There is moderate bilateral ne ural foraminal stenosis. There is mild central canal stenosis at the midline. There is severe stenosi s of right lateral recess. L2-L3: The disc is bulging with superimposed left subarticular zone extrusion with 10 mm inferior ext ension. There is severe bilateral facet joint osteoarthritis. There is moderate bilateral neural fora halima stenosis. There is mild central canal stenosis at the midline. There is severe stenosis of left lateral recess. L3-L4: The disc is bulging with superimposed right subarticular zone extrusion with 7 mm inferior ext ension. There is severe right and mild left facet joint osteoarthritis. There is moderate bilateral n eural foraminal stenosis. There is mild central canal stenosis at the midline. There is moderate sten osis of right lateral recess. L4-L5: The disc is bulging and has an annular fissure. There is severe bilateral facet joint osteoart hritis. There is moderate right and mild left neural foraminal stenosis. There is mild central canal stenosis at the midline. There is severe stenosis of right lateral recess and moderate stenosis of le ft lateral recess. L5-S1: The disc is bulging and has an annular fissure. There is severe bilateral facet joint osteoart hritis. There is moderate bilateral neural foraminal stenosis. There is moderate central canal stenos is. IMPRESSION: 1. Severe lumbar spondylosis, worsened from 11/22/2020. 2. Chronic bilateral L5 pars defects with grade 2 anterolisthesis of L5 on S1. Reviewed, dictated and finalized at location A. UCT PICKER
--- OUTSIDE RECORDS SUMMARY | 2024-10-27 15:46 | XMS_ITS | Referral Summary ---
Author Organization [facility] Address [address] [place] [address] Care Team Providers Care Heavy Line Technician Name Role Phone Hung Espinal MD Primary Care Provider [phone] Encounters Date Type Department Care Team Description 10/17/2024 3:45 PM GEODUCK DIVER Office Visit [facility] Cardiology [address] [place] [address] [address] [place] [address] [phone] Raul Zepeda MD Coronary artery disease involving bear [place] coronary artery of bear [place] heart without angina pectoris (Primary Dx); History of coronary artery stent placement; Persistent atrial fibrillation (HCC) 09/29/2024 Telephone [facility] Cardiology [address] [place] [address] [place] [phone] Raul Zepeda MD Med Refill 09/21/2024 Telephone [place] [address] [place] [phone] Raul Zepeda MD Med Refill 08/25/2024 9:00 AM GEODUCK DIVER Office Visit [facility] Cardiology [address] [place] [address] [address] [place] [phone] Genny Swanson NP Persistent atrial fibrillation (HCC) (Primary Dx); Encounter for anticoagulation discussion and counseling; Hospital discharge follow-up; Essential hypertension; Coronary artery disease involving [place] coronary artery of [place] heart without angina pectoris from Last 3 Months Allergies Active Allergy [...] total) by mouth nightly at bedtime Active Eliquis 5 mg tablet Take 1 tablet (5 mg total) by mouth every 12 (twelve) hours 180 tablet 1 5 Active metoprolol XL (TOPROL-XL) 100 mg 24 hr tablet Take 1 tablet (100 mg total) by mouth every morning 90 tablet 1 5 Active metoprolol XL (TOPROL-XL) 100 mg 24 hr tablet Take 1 tablet (100 mg total) by mouth every morning 4 09/29/19 25 Discontinu ed(Reorder ) Eliquis 5 mg tablet Take 1 tablet (5 mg total) by mouth every 12 (twelve) hours 180 tablet 1 5 09/29/19 25 Discontinu ed(Reorder ) Active Problems Problem Noted Date Diagnosed Date Persistent atrial fibrillation 10/17/2024 Coronary artery disease invo lving [place] heart without angina pectoris 07/07/2017 History of [...] on file Legal Sex Male 2:11 AM GEODUCK DIVER Gender Identity Not on file Sexual Orientation Not on file Last Filed Vital Signs Vital Sign Reading Time Taken Comments Blood Pressure 128/80 10/17/2024 3:32 PM GEODUCK DIVER Pulse 75 10/17/2024 3:32 PM GEODUCK DIVER Temperature 36.8 C (98.3 F) 12/28/2012 9:00 AM CDT Respiratory Rate - - Oxygen Saturation 98% 10/17/2024 3:32 PM GEODUCK DIVER Inhaled Oxygen Concentration - - Weight 69.4 kg (152 lb 14.4 oz) 10/17/2024 3:32 PM GEODUCK DIVER Height 160 cm (5' 3 ) 10/17/2024 3:32 PM GEODUCK DIVER Body Mass Index 27.09 10/17/2024 3:32 PM GEODUCK DIVER Plan of Treatment Not on file Insurance [facility] MDCR HMO REF MEDICARE SOLUTIONS Care Teams Heavy Line Technician Relationship Specialty Start Date End Date Hung Espinal MD PCP - General Family Practice 09/17/23
--- OUTSIDE RECORDS SUMMARY | 2024-10-27 15:46 | XMS_ITS | Encounter Summary ---
Author Organization [facility] Healthcare Address [address] [place] [address] Care Team Providers Care Inspection Supervisor Name Role Phone Hung Espinal MD Primary Care Provider [phone] [phone] Encounter Details Date Type Department Care Team (Late st Contact Info) Description 07/21/2024 Orders Only [facility] Health Information Management [address] [place] [address] Anitra Gibson DO [address] [place] [address] Social History Tobacco Use Types Packs/Day Years Used Date Smoking Tobacco: Never Smokeless Tobacco: Never Alcohol Use Standard Drinks/Week Comments Yes 0 (1 standard drink = 0.6 oz pur e alcohol) Sex and Gender Information Value Date Recorded Sex Assigned at Not on file Legal Sex Male 2:11 AM RECREATION SPECIALIST Gender Identity Not on file Sexual Orientation [...] on filedocumented in this encounter Care Teams Inspection Supervisor Relationship Specialty Start Date End Date Hung Espinal MD PCP - General Family Practice 09/17/23 documented as of this encounter
--- OUTSIDE RECORDS SUMMARY | 2024-10-27 15:46 | XMS_ITS | Clinical Summary ---
Author [place] [address] [facility] Address [address] [place] [address] Care Team Providers Care Hand Patcher Name Role Phone Alessandro Sparks Primary Care [...] 1 Tablet by mouth daily. Active C,E,zinc,copper 11/obotl6n/lut (OCUVITE ADULT 50 PLUS ORAL) Take by [...] VACCINES (1 - Tdap) 1959 PNEUMOCOCCAL VACCINE 50+ YEA RS (1 of 1 - PCV) 1990 ZOSTER VACCINE (1 of 2) 1990 RSV VACCINE (60+ or ) (1 - 1-dose 75+ series) 2015 INFLUENZA VACCINE (#1) 2024 9, 05/07/2018, 05/15/2016, Additional history exists Care Teams Hand Patcher Relationship Specialty Start Date End Date Alessandro Sparks DO [facility] [address] [place] [phone] PCP - General Internal Medicine 11/15/20
--- OUTSIDE RECORDS SUMMARY | 2024-10-27 15:46 | XMS_ITS | Continuity of Care Document ---
Author Organization [facility] Address [address] [place] [address] Exec utive [facility] [address] [place] [address] Phone Care Team Providers Care Doctor Of Nurse Anesthesia Name Role Phone Corrine Caro Unavailable Unavailable Procedures Procedure Date Eye Exam & Treatment Refraction Advance Directives Directive Yes / No Effective Date File Name No Information Encounters Encounter Description Practice Location Reason(s) For Visit Diagnoses Date Provider Providers Copied on Encounter [facility], [address] [place] [address] [address], [place], [place], [id number], [place] tel:[phone] [facility] No Information 0 Vania Castle. [address] , [address], [place], [address], [place]. tel:[phone] Family History Family Member Type Diagnosis Age [...]
--- OUTSIDE RECORDS SUMMARY | 2024-10-27 15:46 | XMS_ITS | Clinical Summary ---
Author Organization [facility] Address [address] [place] [address] Care Team Providers Care Halal Butcher Name Role Phone Hung Espinal MD Primary Care Provider [phone] [phone] Allergies Active Allergy Reactions Criticality Noted Date [...] fibrillation 10/17/2024 Coronary artery disease invo lving torres martinez heart without angina pectoris 07/07/2017 History of coronary artery stent placement 07/07 Osteoarthritis of glenohumeral joint 01/09/2017 Pain in shoulder 10/17/2016 Encounters Date Type Department Care Team Description 10/17/2024 3:45 PM IMPREGNATION OPERATOR Office Visit [facility] Cardiology [address] [place] [phone] Raul Zepeda MD Coronary artery disease involving torres martinez coronary artery of torres martinez heart without angina pectoris (Primary Dx); History of coronary artery stent placement; Persistent atrial fibrillation (HCC) 09/29/2024 Telephone [facility] Cardiology [address] [place] [address] [place] [phone] Raul Zepeda MD Med Refill 09/21/2024 Telephone [facility] Cardiology [address] [place] [address] [place] [phone] Raul Zepeda MD Med Refill 08/25/2024 9:00 AM IMPREGNATION OPERATOR Office Visit [facility] Cardiology [address] [place] [address] [place] [phone] Genny Swanson NP Persistent atrial fibrillation (HCC) (Primary Dx); Encounter for anticoagulation discussion and counseling; Hospital discharge follow-up; Essential hypertension; Coronary artery disease involving torres martinez coronary artery of torres martinez heart without angina pectoris from Last 3 Months Medical History Medical History Date Comments Hypertension Hypertension Atrial fibrillation (HCC) Coronary artery disease Family History Medical History Relation Name Comments [...] on file Legal Sex Male 2:11 AM IMPREGNATION OPERATOR Gender Identity Not on file Sexual Orientation Not on file Obstetrics History Last Filed Vital Signs Vital Sign Reading Time Taken Comments Blood Pressure 128/80 10/17/2024 3:32 PM IMPREGNATION OPERATOR Pulse 75 10/17/2024 3:32 PM IMPREGNATION OPERATOR Temperature 36.8 C (98.3 F) 12/28/2012 9:00 AM CDT Respiratory Rate - - Oxygen Saturation 98% 10/17/2024 3:32 PM IMPREGNATION OPERATOR Inhaled Oxygen Concentration - - Weight 69.4 kg (152 lb 14.4 oz) 10/17/2024 3:32 PM IMPREGNATION OPERATOR Height 160 cm (5' 3 ) 10/17/2024 3:32 PM IMPREGNATION OPERATOR Body Mass Index 27.09 10/17/2024 3:32 PM IMPREGNATION OPERATOR Plan of Treatment Health Maintenance Due Date Last Done Comments Depression Screening 1940 Fall Risk Assessment 1940 DTaP/Tdap/Td Vaccine (1 - Tdap) 1951 Hepatitis B Screening 1958 Pneumococcal vaccine 65+ (1 of 1 - PCV) 1990 Well Visit 65+ 2005 Zoster Vaccine (2 of 3) 10/19/2008 08/24/2008 Influenza Vaccine (#1) 2024 9, 05/21/2018, 05/06/2018, Additional history exists Insurance [facility] MDCR HMO REF [facility] Address: [address] [place], [place] [phone] MEDICARE SOLUTIONS [facility] MEDIC[facility] Address: [address] [address] [place] [phone] Care Teams Halal Butcher Relationship Specialty Start Date End Date Hung Espinal MD PCP - General Family Practice 09/17/23
== END 2024-10-27 14:24 | disposition home or self-care (01) ==
PROVIDERS: PCP Nurse Practitioner Family; Visit Provider Nurse Practitioner Family
DX: M47.816 Spondylosis without myelopathy or radiculopathy, lumbar region (principal); M43.16 Spondylolisthesis, lumbar region; R32 Unspecified urinary incontinence
CPT/HCPCS: 72148

== ENCOUNTER 2025-06-13 01:52 | Emergency (ER) | payer MEDICARE, SELFPAY ==
[2025-06-13 02:18] VITALS: BP 173/73; PULSE 58; RESP 16; TEMP 36.5; O2SAT 98
--- NOTE | 2025-06-13 02:31 | ED.MALEGU ---
HPI - Male Genitourinary General Chief complaint: Urogenital-Male Stated complaint: cant urinate Time Seen by Provider: 06/13/25 02:08 History of Present Illness HPI Narrative: 85-year-old male with history of hypertension and remote history of prostate cancer status post surgery. History of overactive bladder and takes medication for this and follows Urology here. Previously had difficulties with urination requiring a Limon catheter but this is been in the past. For last few days he has been having trouble urinating where he feels like he has urgency and when he goes to the bathroom he is only able to initiate some troubles during his stream and not completely emptying. Feels like his prostate is causing his symptoms. No back pain, fever, chills. No flank pain, dysuria otherwise. No pain with urination, foul odor or blood. Was otherwise in his normal state of health. No traumatic injuries. Has an upcoming urology appointment with a new urologist after his previous one retired here. Related Data Home Medications ?Medication ?Instructions ?Recorded ?Confirmed ?Last Taken ?Type aspirin 81 mg tablet,delayed 81 mg PO DAILY 11/14/20 05/10/25 07/20/24 History release latanoprost 0.005 % eye drops 1 drp EACH EYE HS 11/14/20 05/10/25 Unknown History multivitamin (Multiple Vitamins 1 tablet PO DAILY 11/14/20 05/10/25 07/20/24 History tablet) cholecalciferol (vitamin D3) 10 10 mcg PO DAILY 11/19/21 05/10/25 07/20/24 History mcg (400 unit) tablet vit C 250 mg-vit E 90 mg-zinc 40 1 tablet PO BID 11/19/21 05/10/25 07/20/24 History mg-copper 1 mo-ynyyfx-megiie capsule (PreserVision AREDS-2) krill 300 mg-omega 3 90 mg-dha 24 1 cap PO DAILY 02/02/23 05/10/25 07/20/24 History mg-epa 50 qi-lxxkyba-rqfha capsule (MegaRed [place]-3 Krill Oil) calcium carbonate 500 mg PO DAILY PRN Indigestion 08/04/24 05/10/25 Unknown History Allergies Allergy/AdvReac Type Severity Reaction Status Date / Time ioversol Allergy Severe Itching Verified 05/10/25 12:42 iodine Allergy Unknown ITCHING Verified 05/10/25 12:42 WITH IV CONTRAST--NO PROBLEM WITH TOPICAL IODINE Review of Systems Review of Systems: As reviewed above in [facility] Past Medical History Medical History Kidney stones (~2000) Sleep apnea With recommended CPAP of pressure 13 on polysomnogram 2011 Osteoporosis 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) 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 bleeding CAD (coronary artery disease) With angioplasty and 2 stents in 1999 COVID Prostate cancer 2021 Vitamin D deficiency Left foot drop Lumbar spinal stenosis Essential (primary) hypertension Gastro-esophageal reflux disease without esophagitis Glaucoma History of prostate cancer Mixed hyperlipidemia Seborrheic keratosis Surgical History Surgical History Status post cataract extraction of both eyes with insertion of intraocular lens Status post total replacement of right shoulder History of eye surgery left eye retinal surgery History of coronary artery stent placement , 1999 Status post total replacement of left shoulder Family History Family History Father Family history of heart disease in male family member before age 55, Onset Age: 58 Hypertension Acute myocardial infarction Heart disease Mother Bladder cancer Cerebrovascular accident Sibling , 2021 Liver cancer, primary, with metastasis from liver to other site sister Social History Social History Social History: He has been for 63 years. He and his raised 1 daughter and 1 son. 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 He drinks 1 glass of wine couple of times a month. He is a lifelong nonsmoker and denies history of illicit substance use. He works out at least once a week at [employer] usually on the treadmill. Code status: Full code Surrogate decision maker: Smoking status: Never smoker Second hand tobacco smoke exposure: No Alcohol intake: never Alcohol use details: occasionally Substance use: never Substance use type: does not use Do You Feel Safe in your Home?: Yes Lack of Transportation: No Lack of Food: Never True Current Housing: I Have Housing Concerned About Future Housing: No Difficulty Paying Gas/Electric Bills: No Difficulty Paying for Meds: No Currently Unemployed: No Education: Trade/Vocational Certificate Difficulty w/ Childcare or Family Care: No Living arrangements: with family Occupation/Education: retired Gender identity (if verbalized by the patient): Male Spiritual care concerns: No Agree to blood products: Yes Exam Narrative: GENERAL: [Well-appearing, well-nourished, and in no acute distress.] HEAD: [Normocephalic, atraumatic.] EYES: [PERRLA and EOMI.] ENT: Nares clear, no rhinorrhea or epistaxis. Mucous membranes moist. NECK: Supple. CHEST: [Clear to auscultation. No respiratory distress.] HEART: [Regular rate and rhythm]. No murmur heard. [Normal peripheral pulses.] ABDOMEN: [Soft, nondistended], [nontender], [No rigidity or guarding] : Unremarkable external genitalia EXTREMITIES: Normal range of motion. [No edema.] SKIN: Warm, dry, no rash. NEURO: [No focal deficits]. Alert and oriented [x3.] PSYCH: [Normal mood and affect.] Course Vital Signs Vital signs: Vital Signs Temperature 36.5 C 06/13/25 02:18 Pulse Rate 58 L 06/13/25 02:18 Respiratory Rate 16 06/13/25 02:18 Blood Pressure 173/73 H 06/13/25 02:18 Pulse Oximetry 98 06/13/25 02:18 Oxygen Delivery Room Air 06/13/25 02:18 Temperature 36.5 C 06/13/25 02:18 Pulse Rate 49 L 06/13/25 03:04 Respiratory Rate 16 06/13/25 03:04 Blood Pressure 161/73 H 06/13/25 03:04 Pulse Oximetry 97 06/13/25 03:04 Oxygen Delivery Room Air 06/13/25 02:18 MDM - Male Genitourinary MDM Narrative Medical decision making narrative: 85-year-old male with history of hypertension and remote history of prostate cancer status post surgery. History of overactive bladder and takes medication for this and follows Urology here. Previously had difficulties with urination requiring a Limon catheter but this is been in the past. For last few days he has been having trouble urinating where he feels like he has urgency and when he goes to the bathroom he is only able to initiate some troubles during his stream and not completely emptying. Feels like his prostate is causing his symptoms. No back pain, fever, chills. No flank pain, dysuria otherwise. No pain with urination, foul odor or blood. Was otherwise in his normal state of health. No traumatic injuries. Has an upcoming urology appointment with a new urologist after his previous one retired here. Patient is otherwise well-appearing and has no complaints besides some urinary retention. Bladder scan did show some urinary retention and he is describing classic signs and symptoms of bladder outlet obstruction secondary to likely prostate enlargement versus urinary tract infection or spasm. Limon catheter was placed with some difficulty per nursing staff and then draining clear yellow urine afterwards with relief of patient's symptoms. Patient has no further complaints. No nausea, vomiting, back pain, fever, chills. Will obtain urinalysis for potential urinary infection treat if needed otherwise he already has a urologist to follow-up with and is comfortable managing a Limon catheter with leg bag at home. Patient given supplies and discharged home after completion of workup. Medical Records Attestation: I reviewed the patient's medical records. Lab Data Labs: Lab Results 06/13/25 Range/Units 02:26 Urine Color Yellow (Yellow) Urine Appearance Clear (Clear) Urine pH 5.5 (5.0-9.0) Ur Specific [place] 1.018 (1.001-1.035) Urine Protein Trace (Negative) mg/dL Urine Glucose (UA) Negative (Negative) mg/dL Urine Ketones Trace H (Negative) mg/dL Ur Blood (Man) 2+ H (Negative) Urine Nitrate Negative (Negative) Urine Bilirubin Negative (Negative) Urine Urobilinogen 1.0 (<2.0) mg/dL Leukocyte Esterase Rfl Negative (Negative) GRACE/UL Urine RBC 21-50 H (0-2) /hpf Urine WBC 0-5 (0-3) /hpf Ur Squamous Epith Cells None seen (Few) /hpf Urine Bacteria None seen /hpf Urine Casts 0-2 Discharge Plan Discharge Clinical Impression: Urinary retention, History of prostate cancer Patient Disposition: Home Condition: Stable Instructions: Antibiotic Form Additional Instructions: Urinalysis did not show any signs of infection. Small amounts of blood seen likely from the Limon insertion itself against an enlarged prostate/stricture. Call your urologist this morning to schedule a closer follow-up visit. Return with any emergent concerns, inability urinate, retention even with a Limon catheter, abdominal pain, inability to tolerate oral intake or any other issues such as bleeding. Patient Language: Maltese Prescriptions: No Action multivitamin [Multiple Vitamins] Tablet 1 tablet PO DAILY aspirin 81 mg tablet,delayed release (DR/EC) 81 mg PO DAILY latanoprost 0.005 % drops 1 drp EACH EYE HS [id number] [MegaRed [place]-3 Krill Oil] 591-22-08-50 mg capsule 1 cap PO DAILY atorvastatin 40 mg tablet 40 mg PO HS Qty: 90 1RF lisinopril 20 mg tablet 20 mg PO DAILY Qty: 90 1RF alendronate 35 mg tablet See Rx Instructions .ROUTE .COMPLEX Qty: 12 1RF Dose Instruction: TAKE 1 TABLET BY MOUTH WEEKLY ON AN EMPTY STOMACH AND FULL GLASS OF WATER. WAIT 1 HOUR BEFORE ANYTHING ELSE BY MOUTH OR LYING DOWN Rx Instructions: TAKE 1 TABLET BY MOUTH WEEKLY ON AN EMPTY STOMACH AND FULL GLASS OF WATER. WAIT 1 HOUR BEFORE ANYTHING ELSE BY MOUTH OR LYING DOWN PreserVision AREDS-2 250-90-40-1 mg capsule 1 tablet PO BID cholecalciferol (vitamin D3) 10 mcg (400 unit) tablet 10 mcg PO DAILY acetaminophen 500 mg capsule 1,000 mg PO Q6-8H PRN (Reason: pain) Qty: 90 1RF Rx Instructions: max dose 3000mg daily (6 pills) Eliquis 5 mg Tablet 5 mg PO Q12HR Qty: 60 0RF metoprolol succinate [Toprol XL] 100 mg Tablet Extended Release 24 Hr 100 mg PO QAM Qty: 30 0RF calcium carbonate 500 mg calcium (1,250 mg) tablet,chewable 500 mg PO DAILY PRN (Reason: Indigestion) Follow-up/Referrals: Dewayne Antonio MD [Physician, Urology] - 3 Days Referral Note: Urinary retention requiring catheter Kayla Lindquist APRN [Primary Care Provider, Internal Medicine] Time of Disposition: 03:07
[2025-06-13 02:49] LABS: Add Urine Microscopic? YES; Appearance Urine Clear (Clear); Glucose Urine UA Negative (Negative); Leukocyte Esterase Ur Negative LEU/UL (Negative); Nitrate Urine Negative (Negative); Non Pathogenic Casts 0-2; Specific Grav Ur 1.018 (1.001-1.035)
[2025-06-13 03:04] VITALS: BP 161/73; PULSE 49; RESP 16; O2SAT 97
== END 2025-06-13 03:31 | disposition home or self-care (01) ==
PROVIDERS: Emergency Provider Student in an Organized Health Care Education/Training Program; PCP Nurse Practitioner Family
DX: R33.9 Retention of urine, unspecified (principal); Z85.46 Personal history of malignant neoplasm of prostate; I10 Essential (primary) hypertension; I25.10 Atherosclerotic heart disease of native coronary artery without angina pectoris; E55.9 Vitamin D deficiency, unspecified; E78.2 Mixed hyperlipidemia; N32.81 Overactive bladder; K21.9 Gastro-esophageal reflux disease without esophagitis; H40.9 Unspecified glaucoma; M81.0 Age-related osteoporosis without current pathological fracture; Z95.5 Presence of coronary angioplasty implant and graft; Z96.612 Presence of left artificial shoulder joint; Z96.611 Presence of right artificial shoulder joint; Z96.1 Presence of intraocular lens; Z98.42 Cataract extraction status, left eye; Z98.41 Cataract extraction status, right eye; Z86.16 Personal history of COVID-19; Z87.442 Personal history of urinary calculi
CPT/HCPCS: 51702; 81001; 99283

== ENCOUNTER 2025-06-27 19:35 | Inpatient (IN) | payer MEDICARE, SELFPAY ==
[2025-06-27] VITALS (7 sets, daily range): BP systolic 140–192; BP diastolic 67–135; PULSE 86–135; RESP 16–40; TEMP 36.9; O2SAT 85–99
--- NOTE | ~2025-06-27 | US_ITS ---
EXAMINATION: US carotid duplex BI DATE: 06/28/2025 20:12 INDICATION: Encephalopathy TECHNIQUE: Grayscale, color Doppler, and pulsed Doppler images of the cervical carotid arteries were obtained. The degree of vessel stenosis is placed in one of the following categories: normal, <50%, 50-69%, >=70% but less than near- occlusion, near-occlusion, or total occlusion. Note that percent stenosis relative to normal distal artery lumen diameter is indirectly measured from velocity measurements as described by Ty, et al. Radiology 2003; 229:340-346. Notes: Normal: Peak systolic velocity <125 centimeters/sec and no plaque <50%. Peak systolic velocity <125 (EDV <40; ICA/CCA PSV ratio <2.0; used these factors only a tandem lesions or low cardiac output or contralateral disease) 50-69 %: PSV 125-230 (EDV 40-100; ratio 2-4) >= 70% but less than near occlusion: PSV greater than 230 (EDV > 100; ratio> 4.0) Near Occlusion: PSV that is variable; markedly narrowed lumen Occlusion: Absent flow on color/spectral Doppler and no lumen on talbert scale. COMPARISON: None. FINDINGS: RIGHT: The right common carotid artery (CCA) peak systolic velocity (PSV) is 77 cm/s. The right internal carotid artery (ICA) PSV is 72 cm/s. The right ICA end- diastolic velocity (EDV) is 29 cm/s. The right ICA/CCA PSV ratio is 1.3. The external carotid artery (ECA) PSV is 62 cm/s. There is antegrade flow in the right vertebral artery. LEFT: The left CCA PSV is 88 cm/s. The left ICA PSV is 73 cm/s. The left ICA EDV is 26 cm/s. The left ICA/CCA PSV ratio is 1.4. The ECA PSV is 64 cm/s. There is antegrade flow in the left vertebral artery. IMPRESSION: 1. Less than 50% stenosis in the right internal carotid artery by sonographic criteria. 2. Less than 50% stenosis in the left internal carotid artery by sonographic criteria. Reviewed, dictated and finalized at location O. ICITY CONSULTANT IMPRESSION: 1. Less than 50% stenosis in the right internal carotid artery by sonographic ortiz carmen. 2. Less than 50% stenosis in the left internal carotid artery by sonographic joni borges.
--- NOTE | ~2025-06-27 | CT_ITS ---
EXAMINATION: CTA chest abdomen pelvis DATE: 06/27/2025 22:01 ENDOSCOPY TECH INDICATION: Possible aortic dissection TECHNIQUE: Computed tomographic angiography (CTA) of the chest, abdomen, and pelvis was performed with 100 mL Omnipaque-350 intravenous contrast. The dose- length product was 974.42 mGy-cm. Maximum intensity projection 3D- reconstructions of the aorta and other arteries were constructed by the technologist on a separate workstation. COMPARISON: CT dated 11/01/2021. FINDINGS: CHEST CTA: There is dependent atelectasis. There is evidence of chronic granulomatous disease. No focal pneumonia, edema, pleural effusion or pneumothorax. There is atherosclerosis of the aorta and coronary arteries. No evidence for aortic aneurysm or dissection. No endobronchial lesions. No suspicious pulmonary nodules or masses. ABDOMEN AND PELVIS CTA: There are liver and bilateral renal cysts. There are calcified granulomas of the spleen. There is a small splenic cyst. There is atrophy of the pancreas. Gallbladder is present. Nonobstructive bowel gas pattern. Limon catheter present in the bladder. There is high density material in the bladder lumen, likely blood clot. There are metallic radiodensities in the pelvis, likely radiation therapy implant seeds in the prostate bed. There is mild right hydronephrosis. Nonobstructive bowel gas pattern. Colonic diverticulosis without evidence for diverticulitis. No free air or free fluid. No lymphadenopathy. Severe lumbar spondylosis. Moderate thoracic spondylosis with accentuated kyphosis. Mild osteoarthritis of the hips. There is bilateral renal artery stenosis. There is stenosis at the origin of the celiac axis and SMA. The REJI is patent. IMPRESSION: 1. Hyperdense soft tissue of the bladder lumen, likely blood clot. Limon catheter present in the bladder lumen. 2: No evidence for aortic aneurysm or dissection. 3: Stenosis of the celiac axis, SMA and renal arteries. Reviewed, dictated and finalized at location O. SCOPY TECH IMPRESSION: 1. Hyperdense soft tissue of the bladder lumen, likely blood clot. Limon cathet er present in the bladder lumen. 2: No evidence for aortic aneurysm or dissection. 3: Stenosis of the celiac axis, SMA and renal arteries.
--- NOTE | ~2025-06-27 | XR_ITS ---
Examination: XR chest PICC line Clinical History: PICC placement Comparison: 06/29/2025 Technique: Portable AP Findings: Right PICC catheter tip upper SVC. Heart size normal. Mild hazy bibasilar opacities and pleural effusions. Right hilar calcifications. No acute bony abnormality. IMPRESSION: 1. Right PICC catheter tip upper SVC. 2. Mild bibasilar atelectasis and/or airspace disease, with small pleural effusions. Reviewed, dictated and finalized at location R. LOPMENTAL SERVICES WORKER IMPRESSION: 1. Right PICC catheter tip upper SVC. 2. Mild bibasilar atelectasis and/or airspace disease, with small pleural effu sions.
--- NOTE | ~2025-06-27 | US_ITS ---
PROCEDURE(S): US venous doppler UE RT INDICATION(S): Edema . PICC line. COMPARISON(S): None. TECHNIQUE: Grayscale, color Doppler, and spectral analysis. FINDINGS: The PICC line is seen in the subclavian/axillary veins. Its course takes it into the jugular vein, rather than the SVC. The jugular is patent. There is occlusive to near occlusive thrombus in the subclavian and axillary veins, hypoechoic and expansive. The remainder of the deep venous structures appear patent. There is thrombosis in the cephalic vein. IMPRESSION: Positive for DVT, likely acute, as described. Superficial thrombophlebitis in the cephalic vein. I discussed this case with the ordering physician at the time of interpretation. Reviewed, dictated and finalized at location A. NG TELLER IMPRESSION: Positive for DVT, likely acute, as described. Superficial thromboph lebitis in the cephalic vein. I discussed this case with the ordering physician at the time of interpretation.
--- NOTE | ~2025-06-27 | XR_ITS ---
EXAMINATION: XR chest 1V portable COMPARISON: No comparisons available. HISTORY: Hypoxia FINDINGS: Mild pulmonary venous congestion. No pneumothorax. Mild cardiomegaly. Mediastinal and hilar contours are within normal limits. Bony thorax no acute abnormality. Miscellaneous: Right PICC line in the SVC. Impression: Mild CHF Reviewed, dictated and finalized at location P. ICAL NURSING INTERN Impression: Mild CHF
--- NOTE | ~2025-06-27 | US_ITS ---
EXAM/PROCEDURE: US pelvic limited HISTORY: Hematuria COMPARISON: None available. TECHNIQUE: Real-time exam performed by technologist. Per technologist annotation, nurse injected 300 mL of fluid in the bladder. FINDINGS: Prominent echogenic focus in the urinary bladder which is nondistended, along with indwelling catheter noted. IMPRESSION: Probable large clot in the urinary bladder which is poorly distended and otherwise not well evaluated. Reviewed, dictated and finalized at location A. STED AIRCREW/AERIAL OBSERVER/GUNNER IMPRESSION: Probable large clot in the urinary bladder which is poorly distended and otherw ise not well evaluated.
--- NOTE | ~2025-06-27 | CT_ITS ---
CT brain wo con HISTORY:ams COMPARISON: None. TECHNIQUE: Axial images were obtained of the head without intravenous contrast. FINDINGS: No acute intracranial hemorrhage, mass effect or midline shift. No extra-axial fluid collections. Generalized atrophy and chronic white matter microangiopathic changes are noted.The calvarium is intact. Visualized paranasal sinuses and mastoid air cells are clear. IMPRESSION: No acute intracranial hemorrhage or extra axial fluid collections. All CT scans at this facility are performed using low dose modulation techniques as appropriate to perform exam including the following: automated exposure control; use of iterative reconstruction technique; adjustment of the mA and/or kV according to patient size (this includes techniques or standardized protocols for targeted exams where dose is matched to indication/reason for exam). Reviewed, dictated and finalized at location S. LITY MANAGER IMPRESSION: No acute intracranial hemorrhage or extra axial fluid collections. All CT scans at this facility are performed using low dose modulation techniqu es as appropriate to perform exam including the following: automated exposure c ontrol; use of iterative reconstruction technique; adjustment of the mA and/or kV according to patient size (this includes techniques or standardized protocol s for targeted exams where dose is matched to indication/reason for exam).
--- NOTE | ~2025-06-27 | MR_ITS ---
EXAM/PROCEDURE: MR brain/brain stem wo/w con HISTORY: Encephalopathy COMPARISON: None available. TECHNIQUE: Pre and postcontrast multiplanar MRI of the brain performed FINDINGS: Punctate area of restricted diffusion in the high parietal parafalcine white matter near the vertex; see image 26 series 3. This corresponds to small area of iso to decreased signal on ADC mapping. No other area suspicious for acute ischemia seen. No evidence of hemorrhage on gradient echo. Moderately severe diffuse chronic microvascular ischemic appearing white matter changes and mild ventriculomegaly somewhat disproportionate to cortical volume loss. Brainstem and cerebellum are unremarkable. On postcontrast series no abnormal enhancing lesions or masses. Hippocampal regions are symmetric. Mild paranasal sinus disease. IMPRESSION: 1. Lacunar sized area of iso to hypointense signal on ADC mapping in the high right parietal region and hyperintense on DWI images suspicious for subacute lacunar infarction. 2. Moderately severe chronic microvascular ischemic appearing white matter changes. 3. Ventriculomegaly slightly disproportionate to cortical volume loss. Query if patient has history suggestive of NPH. Reviewed, dictated and finalized at location A. ESTIMATOR IMPRESSION: 1. Lacunar sized area of iso to hypointense signal on ADC mapping in the high r ight parietal region and hyperintense on DWI images suspicious for subacute lac unar infarction. 2. Moderately severe chronic microvascular ischemic appearing white matter ayala ges. 3. Ventriculomegaly slightly disproportionate to cortical volume loss. Query if patient has history suggestive of NPH.
--- NOTE | ~2025-06-27 | US_ITS ---
Ultrasound venous duplex upper extremity,right arm CLINICAL HISTORY: attention IJ, fu venous thrombosis . Comparison: 07/07/2025. TECHNIQUE: Grayscale, color, duplex/spectral Doppler sonography. FINDINGS/IMPRESSION: 1. Persistent thrombus within right subclavian and axillary veins. 2. Thrombus also within basilic and cephalic veins. 3. Catheter remains in place. Reviewed, dictated and finalized at location R. ARE LITHOGRAPH PRESS OPERATOR
--- NOTE | 2025-06-27 19:44 | ECG_ITS ---
Test Date: 2025-06-27 20:33:46 Measurements Intervals [place] Rate: 85 P: 56 MD: 167 QRS: -8 QRSD: 73 T: 3 QT: 370 QTc: 442 Interpretive Statements SINUS RHYTHM WITH OCCASIONAL SUPRAVENTRICULAR PREMATURE COMPLEXES INFERIOR MYOCARDIAL INFARCTION , PROBABLY OLD [40+ ms Q WAVE AND/OR ST/T ABNORMALITY IN II/aVF] Compared to ECG 07/21/2024 00:06:06 Atrial fibrillation no longer present Myocardial infarct finding still present Electronically Signed On 06-27-2025 21:29:03 ALTERATION SPECIALIST by Cailin Medrano M.D.
--- NOTE | 2025-06-27 20:15 | PC.NURSE ---
Dr. Gold at bedside talking with pt. and pt. son.
--- NOTE | 2025-06-27 20:19 | ED_ITS ---
HPI - General Adult General Chief complaint: Urogenital-Male Stated complaint: WEAKNESS, HEMATURIA WITH CLOTS Time Seen by Provider: 06/27/25 19:39 Source: patient and EMS Mode of arrival: EMS Limitations: no limitations History of Present Illness HPI narrative: This is an 85-year-old male with history of paroxysmal AFib, GERD, hypertension, prostate cancer who presents the ED for reduced in hematuria. Patient states that he recently had a prostate procedure it is been dealing with some hematuria for the past 2 weeks due to that. He has Limon catheter removed this morning after some irrigation and went home not needing the Limon. When he got home, he had to go to the bathroom and he does not recall getting back to the couch. Her son in the room, he states patient's stated that he cut down on his knees and slumped over on the ground and fell asleep. Per EMS, they think that he was down for a few hours. Patient does not recall any of this. He reports that he still feels a little weak but not as bad as earlier. No recent illnesses that he is aware of. Denies fevers, chills, chest pain, shortness of breath, abdominal pain, nausea vomiting, headache. Related Data Home Medications ?Medication ?Instructions ?Recorded ?Confirmed ?Last Taken ?Type aspirin 81 mg tablet,delayed 81 mg PO DAILY 11/14/20 1 08/28/24 07/20/24 History release latanoprost 0.005 % eye drops 1 drp EACH EYE HS 06/28/25 Unknown History multivitamin (Multiple Vitamins 1 tablet PO DAILY 10/2306/28/25 07/20/24 History tablet) cholecalciferol (vitamin D3) 10 10 mcg PO DAILY 06/28/25 07/20/24 History mcg (400 unit) tablet vit C 250 mg-vit E 90 mg-zinc 40 1 tablet PO BID 11/1906/28/25 07/20/24 History mg-copper 1 jo-hykcmd-hsdjdk capsule (PreserVision AREDS-2) krill 300 mg-omega 3 90 mg-dha 24 1 cap PO DAILY 02/0206/28/25 07/20/24 History mg-epa 50 tc-ppopbip-ztvkx capsule (MegaRed [place]-3 Krill Oil) calcium carbonate 500 mg PO DAILY PRN Indigest ion 08/04/24 06/28/25 Unknown History Allergies Allergy/AdvReac Type Severity Reaction Status Date / Time ioversol Allergy Severe Itching Verified 06/28/25 01:26 iodine Allergy Unknown ITCHING Verified 06/28/25 01:26 WITH IV CONTRAST--NO PROBLEM WITH TOPICAL IODINE Review of Systems 2 Review of Systems: Gen.: Denies fevers or chills Eyes: Denies eye pain or visual change ENT: Denies congestion Respiratory: Denies shortness of breath or cough CV: Denies chest pain or palpitations GI: Denies abdominal pain nausea, emesis or diarrhea as per HPI Musculoskeletal: Denies back pain or muscle pain Neuro: Denies numbness, tingling, weakness or focal weakness Skin: Denies rash Except as documented, all other systems reviewed and negative [facility] Past Medical History Medical History Kidney stones (~2000) Sleep apnea With recommended CPAP of pressure 13 on polysomnogram 2011 Osteoporosis 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) 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 bleeding CAD (coronary artery disease) With angioplasty and 2 stents in 1999 COVID Prostate cancer 2021 Vitamin D deficiency Left foot drop Lumbar spinal stenosis Essential (primary) hypertension Gastro-esophageal reflux disease without esophagitis Glaucoma History of prostate cancer Mixed hyperlipidemia Seborrheic keratosis Surgical History Surgical History Status post cataract extraction of both eyes with insertion of intraocular lens Status post total replacement of right shoulder History of eye surgery left eye retinal surgery History of coronary artery stent placement , 1999 Status post total replacement of left shoulder Family History Family History Father Family history of heart disease in male family member before age 55, Onset Age: 58 Hypertension Acute myocardial infarction Heart disease Mother Bladder cancer Cerebrovascular accident Sibling , 2021 Liver cancer, primary, with metastasis from liver to other site sister Social History Social History Social History: He has been for 63 years. He and his raised 1 daughter and 1 son. 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 He drinks 1 glass of wine couple of times a month. He is a lifelong nonsmoker and denies history of illicit substance use. He works out at least once a week at [employer] usually on the treadmill. Code status: Full code Surrogate decision maker: Smoking status: Never smoker Second hand tobacco smoke exposure: No Alcohol intake: never Alcohol use details: occasionally Substance use: never Substance use type: does not use Do You Feel Safe in your Home?: Yes Lack of Transportation: No Lack of Food: Never True Current Housing: I Have Housing Concerned About Future Housing: No Difficulty Paying Gas/Electric Bills: No Difficulty Paying for Meds: No Currently Unemployed: No Education: Trade/Vocational Certificate Difficulty w/ Childcare or Family Care: No Living arrangements: with family Occupation/Education: retired Gender identity (if verbalized by the patient): Male Spiritual care concerns: No Agree to blood products: Yes Exam 2 Narrative: APPEARANCE: No acute distress, nontoxic, resting in bed EYES: EOMI HEENT: Normocephalic, atraumatic, OMM RESPIRATORY: No respiratory distress Clear to auscultation bilaterally with no rhonchi wheezing or rales. CARDIOVASCULAR: Regular rate and rhythm without murmurs rubs or gallops. ABDOMINAL: Soft, nontender, nondistended, no rebound or guarding : Blood at the urethral meatus MUSCULOSKELETAl: Moves all extremities. No clubbing, cyanosis or edema. NEURO: Awake and alert. Following commands, speech normal, no focal deficits. NIHSS 0 SKIN:: Warm, dry. No rashes lesions or abrasions PSYCHIATRIC: Normal affect/mood, Course Vital Signs Vital signs: Vital Signs Temperature 98.5 F 06/27/25 19:56 Pulse Rate 86 06/27/25 19:56 Respiratory Rate 16 06/27/25 19:56 Blood Pressure 142/82 H 06/27/25 19:56 Pulse Oximetry 96 06/27/25 19:56 Oxygen Delivery Room Air 06/27/25 19:56 Temperature 98.2 F 06/28/25 08:00 Pulse Rate 105 H 06/28/25 08:00 Respiratory Rate 21 H 06/28/25 08:00 Blood Pressure 85/47 L 06/28/25 09:47 Pulse Oximetry 100 06/28/25 08:00 Oxygen Delivery CPAP 06/28/25 03:24 Oxygen Flow Rate 2 06/28/25 00:25 Medical Decision Making MDM Narrative Medical decision making narrative: 85-year-old male Presenting for concerns for altered mental status and hematuria. On initial evaluation patient was in no acute distress afebrile, hemodynamic stable. Differentials include but are not limited to: CVA, TIA, ICH, meningitis, UTI, cancer, drug intoxication, hypoglycemia, electrolyte abnormality Notable exam findings: Nonfocal neuro exam. Small amount of dried blood to the urethral meatus. No abdominal tenderness to palpation. Notable lab findings: Leukocytosis at 20.6 with anemia at 9.9. Hemoglobin is noted to have dropped about 4 grams with last hemoglobin in October. UA noted to have gross hematuria with trace bacteria. COVID/flu/RSV negative. Notable imaging findings: CT head showed no acute process. After patient returned from CT the tachypnea and slightly altered and was complaining new low back pain. Initial blood pressure after that was 250s/150s. There is immediate concerns for possible dissection so patient returned to CT for a CTA chest/abdomen/pelvis. This showed no evidence of dissection or other aortic pathology and evidence of PE. Did note clot in the bladder. Patient was briefly hypoxic during this episode as well so he was placed on 2 L nasal cannula. He has remained somnolent since this episode but with no focal neurologic findings. At this point, suspect patient is septic due to a UTI. Patient was started on Rocephin. He will require admission. Case was discussed with hospitalist who will admit the patient. Medical Records Medical records reviewed: Yes I reviewed the external patient's medical records. Vital Signs Vital Signs: Vital Signs Temperature 98.5 F 06/27/25 19:56 Pulse Rate 86 06/27/25 19:56 Respiratory Rate 16 06/27/25 19:56 Blood Pressure 142/82 H 06/27/25 19:56 Pulse Oximetry 96 06/27/25 19:56 Oxygen Delivery Room Air 06/27/25 19:56 Temperature 98.2 F 06/28/25 08:00 Pulse Rate 105 H 06/28/25 08:00 Respiratory Rate 21 H 06/28/25 08:00 Blood Pressure 85/47 L 06/28/25 09:47 Pulse Oximetry 100 06/28/25 08:00 Oxygen Delivery CPAP 06/28/25 03:24 Oxygen Flow Rate 2 06/28/25 00:25 Lab Data Lab results reviewed: Yes I reviewed the patient's lab results. 06/28/25 07:51 06/28/25 04:34 Labs: Lab Results 06/27/25 06/27/25 Range/Units 20:17 21:04 WBC 20.6 H (4.5-10.0) K/mm3 RBC 3.24 L (4.6-6.20) M/mm3 Hgb 9.9 L (14.0-18.0) g/dL Hct 30.6 L (42.0-52.0) % MCV 94.4 (80-100) fl MCH 30.6 (26-34) pg MCHC 32.4 (32-36) g/dl RDW 14.6 H (11.5-14.5) % Plt Count 289 (150-375) k/mm3 MPV 8.7 (7.4-10.4) fl Immature Gran % (Auto) Not Reportable Neut % (Auto) Not Reportable Lymph % (Auto) Not Reportable [place] % (Auto) Not Reportable Eos % (Auto) Not Reportable Baso % (Auto) Not Reportable Lymph # (Auto) Not Reportable [place] # (Auto) Not Reportable Eos # (Auto) Not Reportable Baso # (Auto) Not Reportable Abs Immat Gran (auto) Not Reportable Absolute Neuts (auto) Not Reportable Absolute Nucleated RBC Not Reportable Total Counted 100 Neutrophils % (Manual) 90 H (46-73) % Band Neutrophils % 7 H (0-6) % Lymphocytes % (Manual) 1 L (18-44) % Monocytes % (Manual) 2 L (3-9) % Nucleated RBC % Not Reportable Abs Neuts (Manual) 19.98 H (1.3-6.7) K/mm3 Abs Lymphs (Manual) 0.20 L (1.1-4.5) K/mm3 Abs Monocytes (Manual) 0.41 (0.1-0.90) K/mm3 Platelet Estimate Adequate (Adequate) Schistocytes None seen Sodium 129 L (137-145) mmol/L Potassium 4.0 (3.4-5.0) mmol/L Chloride 98 (98-107) mmol/L Carbon Dioxide 26 (22-30) mmol/L Anion Gap 5 (4-12) mmol/L BUN 17 (9-20) mg/dL Creatinine 1.01 (0.7-1.3) mg/dL Estim Creat Clear Calc Not Reportable Estimated GFR > 60 (59 - ) Glucose 116 H (65-110) mg/dL Calcium 8.3 L (8.4-10.2) mg/dL Total Bilirubin 0.8 (0.2-1.3) mg/dL AST 41 (17-59) U/L ALT 24 (6-50) U/L Alkaline Phosphatase 89 (38-126) U/L Total Creatine Kinase 217 H (55-170) U/L Total Protein 6.2 L (6.3-8.2) g/dL Albumin 3.4 L (3.5-5.1) g/dL Urine Color Red H (Yellow) Urine Appearance Turbid H (Clear) Urine pH 7.0 (5.0-9.0) Ur Specific [place] 1.020 (1.001-1.035) Urine Protein 3+ H (Negative) mg/dL Urine Glucose (UA) Negative (Negative) mg/dL Urine Ketones 2+ H (Negative) mg/dL Ur Blood (Man) 3+ H (Negative) Urine Nitrate Negative (Negative) Urine Bilirubin 1+ H (Negative) Urine Urobilinogen 0.2 (<2.0) mg/dL Leukocyte Esterase Rfl Negative (Negative) GRACE/UL Urine RBC 51-100 H (0-2) /hpf Urine WBC 0-5 (0-3) /hpf Ur Squamous Epith Cells None seen (Few) /hpf Urine Bacteria Trace (None) /hpf Hyaline Casts 1-2 (None) /lpf Influenza A (RT-PCR) Negative (Negative) Influenza B (RT-PCR) Negative (Negative) RSV (RT-PCR) Negative (Negative) SARS-CoV-2 RNA (RT-PCR) Negative (Negative) ABG Data ABG results: 06/27/25 22:33 Puncture Site Right brachial ABG pH 7.480 H ABG pCO2 28.3 L ABG pO2 73.4 L ABG PO2/FiO2 Ratio 2.62 ABG HCO3 20.6 L ABG O2 Saturation 95.9 ABG O2 Content 13.4 L ABG Base Excess -2.1 A-a Gradient 92.8 Oxyhemoglobin 94.9 Total Hemoglobin 10.0 L O2 Delivery Device Nasal cannula O2 Liters/Min 2.0 FiO2 28 Imaging Data Attestation: I personally reviewed and interpreted this imaging study as follows: Radiologist's impression: Impressions Head CT 06/27/25 21:22 IMPRESSION: No acute intracranial hemorrhage or extra axial fluid collections. All CT scans at this facility are performed using low dose modulation techniques as appropriate to perform exam including the following: automated exposure control; use of iterative reconstruction technique; adjustment of the mA and/or kV according to patient size (this includes techniques or standardized protocols for targeted exams where dose is matched to indication/reason for exam). Chest/Abdomen/Pelvis CTA 06/27/25 22:00 IMPRESSION: 1. Hyperdense soft tissue of the bladder lumen, likely blood clot. Limon catheter present in the bladder lumen. 2: No evidence for aortic aneurysm or dissection. 3: Stenosis of the celiac axis, SMA and renal arteries. ECG Data EKG #1: Attestation: I personally reviewed and interpreted this ECG as follows: ECG completion date: 06/27/25 ECG completion time: 20:33 Interpretation: Normal sinus rhythm rate of 83, normal axis, normal intervals, Q-wave in leads III and AVF, no acute ST or T-wave changes. Discharge Plan Discharge Clinical Impression: Gross hematuria, Altered awareness, transient Hypertension Qualifiers: Hypertension type: unspecified Qualified Code(s): I10 - Essential (primary) hypertension Leukocytosis Qualifiers: Leukocytosis type: other Qualified Code(s): D72.828 - Other elevated white blood cell count Patient Disposition: Still a Patient Condition: Guarded Prognosis
[2025-06-27 20:25] LABS: Hematocrit 30.6 % (42.0-52.0); Hemoglobin 9.9 g/dL (14.0-18.0); Mean Corpuscular HGB Conc 32.4 g/dl (32-36); Mean Corpuscular Hemoglobin 30.6 pg (26-34); Mean Corpuscular Volume 94.4 fl (80-100); Platelet Count Result 289 k/mm3 (150-375); Red Blood Count 3.24 M/mm3 (4.6-6.20); White Blood Count 20.6 K/mm3 (4.5-10.0)
[2025-06-27 20:36] LABS: Alanine Aminotransferase 24 U/L (6-50); Albumin Level 3.4 g/dL (3.5-5.1); Alkaline Phosphatase 89 U/L (38-126); Anion Gap 5 mmol/L (4-12); Aspartate Amino Transferase 41 U/L (17-59); Bilirubin,Total 0.8 mg/dL (0.2-1.3); Blood Urea Nitrogen 17 mg/dL (9-20); Calcium 8.3 mg/dL (8.4-10.2); Carbon Dioxide 26 mmol/L (22-30); Chloride 98 mmol/L (98-107); Creatine Kinase 217 U/L (55-170); Estimated Glomerular Filt Rate > 60; Glucose 116 mg/dL (65-110); Potassium 4.0 mmol/L (3.4-5.0); Sodium 129 mmol/L (137-145); Total Protein 6.2 g/dL (6.3-8.2)
--- NOTE | 2025-06-27 21:07 | PC.NURSE ---
Pt. to CT.
[2025-06-27 21:09] LABS: Band Neutrophils Percent 7 % (0-6); Lymphocytes Absolute Manual 0.20 K/mm3 (1.1-4.5); Lymphocytes Percent Manual 1 % (18-44); Monocytes Absolute Manual 0.41 K/mm3 (0.1-0.90); Monocytes Percent Manual 2 % (3-9); Neutrophils Absolute Manual 19.98 K/mm3 (1.3-6.7); Neutrophils Percent Manual 90 % (46-73); Schistocytes None Seen; Total Cells Counted 100
[2025-06-27] MEDS: SODIUM CHLORIDE 0.9% IV 1,000 ML 999 ML IV CONT (21:15)
[2025-06-27] MEDS: LIDOCAINE 2% GEL UROJET 10 ML PKG MUCOUS MEM (21:17)
[2025-06-27 21:37] LABS: Add Urine Microscopic? YES; Appearance Urine Turbid (Clear); Specific Grav Ur 1.020 (1.001-1.035)
[2025-06-27 21:38] LABS: Glucose Urine UA Negative (Negative); Leukocyte Esterase Ur Negative LEU/UL (Negative); Nitrate Urine Negative (Negative)
[2025-06-27] MEDS: MORPHINE SULFATE (*CRX) 4 MG/ML INJ IV PUSH (21:42)
[2025-06-27 21:58] LABS: Influenza A QL RT-PCR Negative (Negative); Influenza B QL RT-PCR Negative (Negative); RSV RNA, RT-PCR Negative (Negative); SARS-CoV-2 RNA PCR Negative (Negative)
--- NOTE | 2025-06-27 22:03 | PC.NURSE ---
Pt. returned from 2nd CT. Son remains at bedside. Pt. is drowsy, alert to verbal, but requires repeated physical stimuli to stay awake when asking questions. Pt. is A&Ox2 (self and place).
--- NOTE | 2025-06-27 22:11 | PC.NURSE ---
2129: Pt. son at bedside alerted this RN at the pt. just returned from CT and he doesn't look so great. This RN went immediately to bedside and found pt. to be tremulous in all 4 extremities, hypertensive, tachycardic, hypoxic and tachypneic. Pt. able to answer questions but more drowsy than when he arrived. Pt. c/o R. lower back pain, which him and his son state is chronic for him. Dr. Gold immediately notified of change in patient condition and to bedside to assess pt. 2L NC applied. 2134: Per Dr. Gold, pt. needs a stat CT with contrast. CT notified. Pt. premedicated d/t iodine allergy. signed waver to not wait the hour after medications are administered before going to CT d/t pt. increased acuity. 2144: Pt. taken to CT on a monitor and on 2L NC by this RN.
--- NOTE | 2025-06-27 22:30 | PC.NURSE ---
3-way armstrong irrigated with 200 mL sterile saline. no clots seen in armstrong bag.
[2025-06-27 22:49] LABS: Alveolar/Arterial O2 Gradient 92.8 mmHg; Fractional Inspired Oxygen 28 %; HCO3 ABG 20.6 mEq/l (22.0-26.0); Oxygen Content ABG 13.4 %vol (16.0-22.0); Oxygen Saturation ABG 95.9 % (95.0-100.0); PCO2 ABG 28.3 mmHg (35.0-45.0); PO2 ABG 73.4 mmHg (80.0-100.0); PO2 FiO2 Ratio Arterial Blood 2.62 %
[2025-06-27 22:50] LABS: Liters per Minute 2.0 LPM; Site Drawn RIGHT BRACHIAL
--- NOTE | 2025-06-27 22:51 | ECG_ITS ---
Test Date: 2025-06-27 23:32:28 Measurements Intervals Doucette Rate: 117 P: 66 OH: 141 QRS: -28 QRSD: 69 T: -6 QT: 318 QTc: 445 Interpretive Statements SINUS TACHYCARDIA WITH OCCASIONAL SUPRAVENTRICULAR PREMATURE COMPLEXES LOW QRS VOLTAGE IN EXTREMITY LEADS [QRS DEFLECTION < 0.5 mV IN LIMB LEADS] INFERIOR MYOCARDIAL INFARCTION , PROBABLY OLD [40+ ms Q WAVE AND/OR ST/T ABNORMALITY IN II/aVF] Compared to ECG 06/27/2025 20:33:46 Low QRS voltage now present Sinus rhythm no longer present Myocardial infarct finding still present Electronically Signed On 06-28-2025 06:38:22 CHEMICAL OPERATIONS SPECIALIST by Cailin Medrano M.D.
--- NOTE | 2025-06-27 23:14 | PC.NURSE ---
Pt has been stuck 4x for his lactic acid. Charge Shavon SAUCEDO notified to call phlebotomy.
[2025-06-27] MEDS: cefTRIAXone 1 GM in SODIUM CHLORIDE 0.9% IV 50 ML 100 ML IVPB (23:34)
--- NOTE | 2025-06-27 23:40 | PC.NURSE ---
Report called to Ashleigh Blackwell RN at [phone]. RN notified that diltiazem was not given d/t pts most recent EKG and vital signs. All other questions were answered by this RN.
[2025-06-28] VITALS (39 sets, daily range): BP systolic 69–133; BP diastolic 41–76; PULSE 85–180; RESP 16–36; TEMP 36.7–38.1; O2SAT 92–100; BMI 24.7; BMI 26.4
--- NOTE | 2025-06-28 | CONSULT_PTH ---
PATIENT: Khoa Philippe LOC: [facility] U#:[id number] AGE/SX: 85/M ROOM: 214 RE06/27/[address]: Anival Marie MD : 1940 BED: 01 DIS: 07/13/2025 SPEC #: [id number] RECD: 06/28/25 09:05 STATUS: DARWIN RENohemi #: [id number] KEY: 06/28/25 00:[address]: Onel Garcia Oca DEPT: [facility] Consult RECD BY: Priscilla Stevens MLT ENTERED: 06/28/25 09:05 SP TYPE: Consult OTHR DR: MD Ernesto Wahl MD Tina A. Winter, APRN Tissues: A - Peripheral Smear Procedures: Hematology Consult
--- NOTE | 2025-06-28 | ECHO_ITS ---
Patient Info Name: Khoa Philippe Age: 85 years : 1940 Gender: Male Ht: 66 in Wt: 153 lbs BSA: 1.81 m2 HR: 102 bpm BP: 91 / 43 mmHg Heart Rhythm: Tachycardia Technical Quality: Good Exam Date: 06/28/2025 2:17 PM Patient Status: I Admit Date: 06/27/2025 Exam Type: CA echo doppler w bubble study Complete two-dimensional, color flow and Doppler transthoracic echocardiogram is performed with agitated saline. Staff Referring Physician: Radha Sherman MEDICAL ASSISTANT PER DIEM Logging Tractor Operator: Peter Sorensen III Attending Provider: Onel Aguirre Oca Contrast/Agitated Saline Contrast/Ag. Saline: Agitated Saline Amount: 12.00 ml Administered By: Peter Sorensen III Existing IV Access: Yes IV Access Condition: patent with no signs of infiltration Summary 1. Left ventricular chamber dimension is normal. 2. Left ventricular systolic function is mildly reduced, estimated at 45-50. 3. There is mildly increased left ventricular wall thickness. 4. The left ventricular diastolic function is normal. 5. Left atrial chamber dimension is moderately enlarged. 6. Intact interatrial septum visualized by color flow and agitated saline imaging. 7. There is mild aortic valve regurgitation. 8. There is mild to moderate mitral valve regurgitation. 9. There is mild tricuspid valve regurgitation. 10. Moderate pulmonary hypertension, estimated pulmonary arterial systolic pressure is 57 mmHg. Left Ventricle Left ventricular chamber dimension is normal. Left ventricular systolic function is mildly reduced, estimated at 45-50. There is mildly increased left ventricular wall thickness. The left ventricular diastolic function is normal. Right Ventricle Right ventricular chamber dimension is normal. Right ventricular systolic function is normal. Left Atria Left atrial chamber dimension is moderately enlarged. Right Atria Right atrial chamber dimension is normal. Atrial Septum Intact interatrial septum visualized by color flow and agitated saline imaging. Aortic Valve The aortic valve is trileaflet. There is mild aortic valve sclerosis. There is no aortic valve stenosis. There is mild aortic valve regurgitation. Pulmonic Valve The pulmonic valve is normal. There is no pulmonic valve stenosis. There is trace pulmonic regurgitation. Mitral Valve The mitral valve has normal leaflets. There is no mitral valve stenosis. There is mild to moderate mitral valve regurgitation. Tricuspid Valve The tricuspid valve leaflets are normal. There is no significant tricuspid valve stenosis. There is mild tricuspid valve regurgitation. Moderate pulmonary hypertension, estimated pulmonary arterial systolic pressure is 57 mmHg. Pericardium/Pleural The pericardium appears normal. There is no pericardial effusion. Inferior Vena Cava Normal inferior vena cava with >50% collapse upon inspiration consistent with normal right atrial pressure, 10 mmHg. Aorta The aortic root size at the sinus of Valsalva is normal. Left Ventricular Outflow Tract Name Value Normal LVOT 2D LVOT Diameter 2.4 cm LVOT Doppler LVOT Peak Velocity 96 cm/s LVOT Peak Gradient 4 mmHg LVOT Mean Gradient 2 mmHg LVOT VTI 17 cm LVOT VTI/AV VTI Ratio 0.8 LVOT Stroke Volume 72 ml LVOT CO 7.7 l/min LVOT CI 4.3 l/min/m2 Pulmonic Valve Name Value Normal PV Doppler PV Peak Velocity 122 cm/s PV Peak Gradient 6 mmHg PV Mean Gradient 3 mmHg Mitral Valve Name Value Normal MV Doppler MV Peak Gradient 3 mmHg MV Mean Gradient 2 mmHg MV Area (Cont Eq VTI) 4.6 cm2 MV Regurgitation Doppler MR Peak Gradient 92 mmHg MV Diastolic Function MV E Peak Velocity 87 cm/s MV A Peak Velocity 83 cm/s MV E/A 1.0 MV Decel Time (PW) 135 ms MV Annular TDI MV E/e' (Septal) 12.5 MV E/e' (Lateral) 7.5 MV E/e' (Average) 10.0 Tricuspid Valve Name Value Normal TV Regurgitation Doppler TR Peak Velocity 344 cm/s TR Peak Gradient 47 mmHg Estimated PAP/RSVP RA Pressure 10 mmHg <=5 PA Systolic Pressure 57 mmHg <36 RV Systolic Pressure 57 mmHg <36 TV Annular TDI TV Lateral Zeinab s' Velocity 18.1 cm/s >=9.5 Aortic Valve Name Value Normal AV Doppler AV Peak Velocity 152 cm/s AV Peak Gradient 9 mmHg AV Mean Gradient 5 mmHg AV VTI 20 cm AV Area (Cont Eq VTI) 3.6 cm2 >=3.0 AV Area (Cont Eq Negrito) 2.8 cm2 AV DI (Negrito) 0.63 AV Regurgitation 2D LVOT Area 4.4 cm2 Ventricles Name Value Normal LV Dimensions 2D/MM LVOT Diameter 2.4 cm LV Fractional Shortening/Ejection Fraction 2D/MM LV Diastolic Volume (4C MOD) 66 ml LV EF (4C MOD) 49 % LV Diastolic Volume (2C MOD) 80 ml LV EF (2C MOD) 39 % LV Diastolic Volume (BP MOD) 73 ml 62-150 LV Diastolic Volume Index (BP MOD) 40 ml/m2 34-74 LV Systolic Volume (BP MOD) 40 ml 21-61 LV Systolic Volume Index (BP MOD) 22 ml/m2 11-31 LV EF (BP MOD) 45 % 52-72 LV Diastolic Length (4C) 7.1 cm LV Systolic Length (4C) 6.2 cm LV Stroke Volume (4C MOD) 32 ml Atria Name Value Normal LA Dimensions LA Volume (4C A-L) 61 ml LA Volume (BP A-L) 64 ml RA Dimensions RA Systolic Major [facility] Length (4C) 5.4 cm 2.1-2.7 RA Area (4C) 17.2 cm2 <=18.0 Report Signatures
--- NOTE | 2025-06-28 00:03 | PC.NURSE ---
Called ED to inform them to hold patient until hospitalist sees patient again in the ED. Report given to IMU RN stated patient was having contractions, unable to obtain new IV access and was having issues getting meds in through the current IV access due to contractions in the arms. Hospitalist was not aware of patient having the contractions since the episode that brought him here and also working IV access needs to be established before sending patient to the floor. IMU RN was also informed that diltizaem was ordered by an ER physician before EKG was done and provider has since left and they were unsure if that still needed to be given or not but did not call hospitalist for new orders. Relayed information to hospitalist who is going to go down and see patient in ED before they come to the floor.
--- NOTE | 2025-06-28 00:28 | PC.NURSE ---
Per GAS TORCH SOLDERER [place] to hold off cardizem IV push order due to pt not being in AFIB at this time.
[2025-06-28 00:36] LABS: Alveolar/Arterial O2 Gradient 114.3 mmHg; Fractional Inspired Oxygen 28 %; HCO3 ABG 20.5 mEq/l (22.0-26.0); Oxygen Content ABG 13.2 %vol (16.0-22.0); Oxygen Saturation ABG 91.8 % (95.0-100.0); PCO2 ABG 26.1 mmHg (35.0-45.0); PO2 ABG 54.5 mmHg (80.0-100.0); PO2 FiO2 Ratio Arterial Blood 1.95 %
[2025-06-28 00:45] LABS: Liters per Minute 2.0 LPM; Modified Allen's Test Pass; Site Drawn LEFT RADIAL
--- NOTE | 2025-06-28 00:53 | PM.IMHP ---
H&P: HPI History of Present Illness Date/Time: 06/28/25 00:53 Chief Complaint: Weakness and hematuria Narrative: This is an 85-year-old male patient who resides with his . He has a history of paroxysmal AFib, GERD, hypertension and prostate cancer. The patient previously had gone through some urology procedures over the last 2 weeks. The patient was sent home with Limon catheter which was subsequently removed today. Patient was sent home without a Limon catheter. When the patient got home today he went to the bathroom and then does not recall getting back on the couch. Is reported that the saw him get down on his knees and slumped over on the ground and fell asleep. When EMS came with to their home it was noted that the patient was down for few hours. He denies any chest pain or shortness of breath any abdominal pain, nausea, vomiting, or headache. Head CT was read as no acute intracranial hemorrhage or extra-axial fluid collections. Chest/abdomen/pelvis CTA was read as a followingIMPRESSION: 1. Hyperdense soft tissue of the bladder lumen, likely blood clot. Limon catheter present in the bladder lumen. 2: No evidence for aortic aneurysm or dissection. 3: Stenosis of the celiac axis, SMA and renal arteries. The patient is very lethargic and not answering questions. Lab 20.6 with H&H 9.9 and 30.6 on his hematology. ABGs pH 7.480 with low bicarb and PO2 was low at 73.4. Oxygen was applied at 2 L per nasal cannula. His heart rate has been in the 1 teens with blood pressure 145/77. His lowest O2 saturation was 85 point has come up to 97%. Sodium was low at 129. His glucose is 116. Lactic is 3.3. Calcium is low at 8.3. Urine is turbid with 3+ protein, 2+ ketones, 3+ blood, 1+ urine bilirubin, 51-100 rbc's. Patient was given diltiazem IV push x1 Benadryl, prednisone, morphine, Rocephin, and IV fluids. The Limon catheter was placed in the emergency room. The patient is being admitted to inpatient status on the date of service of 06/28/2025. Review of Systems Review of Systems: The patient will open his eyes when his name is called. However he would not answer any questions. 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) 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 bleeding CAD (coronary artery disease) With angioplasty and 2 stents in 1999 COVID Prostate cancer 2021 Vitamin D deficiency Left foot drop Lumbar spinal stenosis Essential (primary) hypertension Gastro-esophageal reflux disease without esophagitis Glaucoma History of prostate cancer Mixed hyperlipidemia Seborrheic keratosis Surgical History Surgical History Status post cataract extraction of both eyes with insertion of intraocular lens Status post total replacement of right shoulder History of eye surgery left eye retinal surgery History of coronary artery stent placement , 1999 Status post total replacement of left shoulder Family History Family History Father Family history of heart disease in male family member before age 55, Onset Age: 58 Hypertension Acute myocardial infarction Heart disease Mother Bladder cancer Cerebrovascular accident Sibling , 2021 Liver cancer, primary, with metastasis from liver to other site sister Social History Social History Social History: He has been for 63 years. He and his raised 1 daughter and 1 son. 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 He is a lifelong nonsmoker and denies history of illicit substance use. He works out at least once a week at [employer] usually on the treadmill. Code status: Full code Surrogate decision maker: Smoking status: Never smoker Second hand tobacco smoke exposure: No Alcohol intake: never Alcohol use details: occasionally Substance use: never Substance use type: does not use Do You Feel Safe in your Home?: Yes Lack of Transportation: No Lack of Food: Never True Current Housing: I Have Housing Concerned About Future Housing: No Difficulty Paying Gas/Electric Bills: No Difficulty Paying for Meds: No Currently Unemployed: No Education: Trade/Vocational Certificate Difficulty w/ Childcare or Family Care: No Living arrangements: with family Occupation/Education: retired Gender identity (if verbalized by the patient): Male Spiritual care concerns: No Agree to blood products: Yes Meds Home Medications and Allergies Home Medications ?Medication ?Instructions ?Recorded ?Confirmed ?Type aspirin 81 mg tablet,delayed 81 mg PO DAILY 11/14/20 06/28/25 History release latanoprost 0.005 % eye drops 1 drp EACH EYE HS 11/14/20 06/28/25 History multivitamin (Multiple Vitamins 1 tablet PO DAILY 11/14/20 06/28/25 History tablet) cholecalciferol (vitamin D3) 10 10 mcg PO DAILY 11/19/21 06/28/25 History mcg (400 unit) tablet vit C 250 mg-vit E 90 mg-zinc 40 1 tablet PO BID 11/19/21 06/28/25 History mg-copper 1 ye-wjlrng-zfryqj capsule (PreserVision AREDS-2) krill 300 mg-omega 3 90 mg-dha 24 1 cap PO DAILY 02/02/23 06/28/25 History mg-epa 50 qx-cffzjbs-vzpla capsule (MegaRed [place]-3 Krill Oil) apixaban 5 mg tablet (Eliquis) 5 mg PO Q12HR #60 tabs 07/22/24 06/28/25 Rx metoprolol succinate 100 mg 100 mg PO QAM #30 tabs 07/22/24 06/28/25 Rx tablet,extended release 24 hr (Toprol XL) calcium carbonate 500 mg PO DAILY PRN Indigestion 08/04/24 06/28/25 History acetaminophen 500 mg capsule 1,000 mg (2 x 500 mg) PO Q6-8H PRN 10/05/24 06/28/25 Rx pain #90 caps alendronate 35 mg tablet See Rx Instructions .Route 04/10/25 06/28/25 Rx .COMPLEX #12 tabs atorvastatin 40 mg tablet 40 mg PO HS #90 tabs 04/10/25 06/28/25 Rx lisinopril 20 mg tablet 20 mg PO DAILY #90 tabs 04/10/25 06/28/25 Rx Allergies Allergy/AdvReac Type Severity Reaction Status Date / Time ioversol Allergy Severe Itching Verified 06/28/25 01:26 iodine Allergy Unknown ITCHING Verified 06/28/25 01:26 WITH IV CONTRAST--NO PROBLEM WITH TOPICAL IODINE Vital Signs Vital Signs - 24 hr 06/27/25 19:56 06/27/25 21:30 06/27/25 21:32 Temperature 98.5 F Pulse Rate 86 135 H Respiratory Rate 16 40 H Blood Pressure 142/82 H 192/135 H Pulse Oximetry 96 85 L 96 Oxygen Delivery Room Air Nasal Cannula Oxygen Flow Rate 2 06/27/25 22:07 06/27/25 22:16 06/27/25 23:46 Temperature Pulse Rate 116 H 114 H 117 H Respiratory Rate 35 H 22 H 25 H Blood Pressure 145/84 H 141/80 H 140/67 Pulse Oximetry 96 99 95 Oxygen Delivery Oxygen Flow Rate 06/27/25 23:47 Temperature Pulse Rate 114 H Respiratory Rate 22 H Blood Pressure 145/77 H Pulse Oximetry 97 Oxygen Delivery Oxygen Flow Rate Exam Const: General: confusion, ill appearing and lethargic Orientation/consciousness: oriented to person HENMT: Head: normal to inspection, No palpable skull fracture present and normocephalic Eyes: General: appearance normal, both eyes and all related structures Alignment and Position: alignment normal Pupils: Equal, round and reactive pupils present Neck: Neck: normal visual inspection and full ROM Chest: Chest palpation & inspection: normal inspection of the chest Resp: Effort & Inspection: normal respiratory effort Auscultation: clear to auscultation bilaterally Cardio: Palpation: normal PMI Rate: tachycardic Rhythm: regular rhythm GI: Inspection: normal to inspection Percussion: Yes normal to percussion Skin: General skin exam: normal color Lesions: no lesions Rashes: no rashes Trauma: no lacerations or abrasions Wounds: no wounds Hair: normal Nails: normal Neuro: General: oriented to person Cranial nerves: Yes Equal, round and reactive pupils present Extrem: General: normal to inspection Right upper extremity: normal to inspection and shoulder/upper arm Left upper extremity: normal to inspection and shoulder/upper arm Right lower extremity: normal to inspection Left lower extremity: normal to inspection Psych: Appearance: grossly normal Mental Status: mental status grossly normal Speech and movement: Normal speech and movement present Affect: normal affect Attitude: cooperative Thought process: Normal thought process present H&P: Results Labs Labs: Short CBC 06/27/25 Range/Units 20:17 WBC 20.6 H (4.5-10.0) K/mm3 Hgb 9.9 L (14.0-18.0) g/dL Hct 30.6 L (42.0-52.0) % Plt Count 289 (150-375) k/mm3 BMP 06/27/25 20:17 Sodium 129 L Potassium 4.0 Chloride 98 Carbon Dioxide 26 BUN 17 Creatinine 1.01 Glucose 116 H Calcium 8.3 L Cardiac Enzymes 06/27/25 Range/Units 20:17 Total Creatine Kinase 217 H (55-170) U/L Liver Function 06/27/25 Range/Units 20:17 Total Bilirubin 0.8 (0.2-1.3) mg/dL AST 41 (17-59) U/L ALT 24 (6-50) U/L Alkaline Phosphatase 89 (38-126) U/L Albumin 3.4 L (3.5-5.1) g/dL Urine 06/27/25 Range/Units 21:04 Urine Color Red H (Yellow) Urine Appearance Turbid H (Clear) Urine pH 7.0 (5.0-9.0) Ur Specific [place] 1.020 (1.001-1.035) Urine Protein 3+ H (Negative) mg/dL Urine Glucose (UA) Negative (Negative) mg/dL ECG Interpretation: SINUS TACHYCARDIA WITH OCCASIONAL SUPRAVENTRICULAR PREMATURE COMPLEXES LOW QRS VOLTAGE IN EXTREMITY LEADS [QRS DEFLECTION < 0.5 mV IN LIMB LEADS] INFERIOR MYOCARDIAL INFARCTION , PROBABLY OLD [40+ ms Q WAVE AND/OR ST/T ABNORMALITY IN II/aVF] Compared to ECG 06/27/2025 20:33:46 Low QRS voltage now present Sinus rhythm no longer present Myocardial infarct finding still present Imaging Chest x-ray: Radiologist's impression: Impressions Head CT 06/27/25 21:22 IMPRESSION: No acute intracranial hemorrhage or extra axial fluid collections. All CT scans at this facility are performed using low dose modulation techniques as appropriate to perform exam including the following: automated exposure control; use of iterative reconstruction technique; adjustment of the mA and/or kV according to patient size (this includes techniques or standardized protocols for targeted exams where dose is matched to indication/reason for exam). Chest/Abdomen/Pelvis CTA 06/27/25 22:00 IMPRESSION: 1. Hyperdense soft tissue of the bladder lumen, likely blood clot. Limon catheter present in the bladder lumen. 2: No evidence for aortic aneurysm or dissection. 3: Stenosis of the celiac axis, SMA and renal arteries. Assessment and Plan Assessment and plan (1) Sepsis: Code(s): A41.9 - Sepsis, unspecified organism Status: Acute Assessment and Plan: -his white count was noted to be 20.6 -his heart rate is fast but his blood pressure is normal. -he has chills but no fever. -blood cultures are pending. -patient was empirically placed on Rocephin, doxycycline, and vancomycin. -daily CBC -the patient is lethargic and will only open his eyes when his name is called out. -source unknown at this time. -may consider Infectious Disease consult. -check lactic daily. Lactic is 3.3 -continue with IV fluids -no open areas noted at this time. No skin tears, no abrasions, and no open areas. (2) Paroxysmal A-fib: Code(s): I48.0 - Paroxysmal atrial fibrillation Status: Acute Assessment and Plan: -the patient is in sinus tachycardia with occasional supraventricular premature complexes. -the patient had been on Eliquis in the past but recently had hematuria and was taken off of the blood thinner. -patient was given a dose of Cardizem in the emergency room. -continue with metoprolol -continue with IV fluids as the patient currently has tachycardia with premature supraventricular beats (3) Hypertension: Code(s): I10 - Essential (primary) hypertension Status: Acute Assessment and Plan: -patient's blood pressure is currently 133/57. -resume home medications when the patient is awake enough to take oral medication and if blood pressure allows. (4) Sleep apnea: Qualifiers: Sleep apnea type: obstructive Qualified Code(s): G47.33 - Obstructive sleep apnea (adult) (pediatric) Code(s): G47.30 - Sleep apnea, unspecified Status: Acute Assessment and Plan: Continue with auto titrate for CPAP/BiPAP (5) Hyponatremia: Code(s): E87.1 - Hypo-osmolality and hyponatremia Status: Acute Assessment and Plan: -most likely related to dehydration. -continue with IV fluids. Monitor closely as to not cause fluid overload (last echo 07/21/2024 shows a normal left ventricular size with a preserved systolic contractility.) -check urine osmolality and urine sodium. 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 -Chest/Abdomen/Pelvis CTA 06/27/25 22:00 IMPRESSION: 1. Hyperdense soft tissue of the bladder lumen, likely blood clot. Limon catheter present in the bladder lumen. 2: No evidence for aortic aneurysm or dissection. 3: Stenosis of the celiac axis, SMA and renal arteries. May consider vascular consult outpatient (7) Encephalopathy: Code(s): G93.40 - Encephalopathy, unspecified Status: Acute Assessment and Plan: -could be due to infectious process. -could be related to the dehydration. -Head CT 06/27/25 21:22 IMPRESSION: No acute intracranial hemorrhage or extra axial fluid collections. -continue with neuro checks every 4 hours. -neurology consult. -a stroke workup which include an echo with bubble, an ultrasound of the carotids, as well as an MRI of the brain (8) Hypoxia: Code(s): R09.02 - Hypoxemia Status: Acute Assessment and Plan: -titrate oxygen to keep O2 saturations above 92%. -trend troponin -check an echo, last echo on 07/21/2024 was read as a following Summary 1. Definity contrast injected to improve visualization. 2. Normal left ventricular size with preserved systolic contractility. 3. Markedly dilated left atrium. 4. Mild MR. 5. Atrial fibrillation. (9) Hematuria: Code(s): R31.9 - Hematuria, unspecified Status: Acute Assessment and Plan: -consult urology -every 6 hour H&H -the patient has a history of prostate cancer. Is reported that the patient had a procedure within the last 2 weeks. -Limon catheter was placed in the emergency room. -H&H is currently 9.9 and 30.6. Quality VTE Prophylaxis VTE prophylaxis: mechanical ordered
--- NOTE | 2025-06-28 01:21 | ADMIMU ---
This patient, Khoa Philippe, was admitted to IMU status, and placed in IMU Room 206-01 at 0115. Patient unable to be oriented to hospital policies and general routines including ID bracelet, bed and alarms, visiting hours, pain management, procedures, bathroom and other care routines, personal items, smoking policy, room service/diet, and visiting hours due to being AOx1 and not responding to questions. Valuables list has been completed. Information on how to activate the Rapid Response Team has been discussed. Will continue to monitor patient.
[2025-06-28 01:56] LABS: Hematocrit 29.1 % (42.0-52.0); Hemoglobin 9.4 g/dL (14.0-18.0)
[2025-06-28] MEDS: SODIUM CHLORIDE 0.9% IV 1,000 ML 100 ML IV CONT (02:02)
[2025-06-28] MEDS: DOXYCYCLINE IV 100 MG in SODIUM CHLORIDE 0.9% IV 100 ML IVPB (02:02)
[2025-06-28 02:04] LABS: Magnesium 1.6 mg/dL (1.6-2.3); Sodium 129 mmol/L (137-145)
[2025-06-28 02:19] LABS: Troponin I 0.449 ng/mL (0.000-0.034)
[2025-06-28] MEDS: VANCOMYCIN 1,750 MG/NS 500 ML 1,750 MG/500 ML BAG 250 MG IVPB (02:55)
[2025-06-28 04:42] LABS: Hematocrit 26.9 % (42.0-52.0); Hemoglobin 8.9 g/dL (14.0-18.0)
[2025-06-28 05:09] LABS: Alanine Aminotransferase 24 U/L (6-50); Albumin Level 2.5 g/dL (3.5-5.1); Alkaline Phosphatase 95 U/L (38-126); Anion Gap 4 mmol/L (4-12); Aspartate Amino Transferase 53 U/L (17-59); Bilirubin,Total 0.6 mg/dL (0.2-1.3); Blood Urea Nitrogen 20 mg/dL (9-20); Calcium 7.5 mg/dL (8.4-10.2); Carbon Dioxide 22 mmol/L (22-30); Chloride 103 mmol/L (98-107); Estimated CRCL calculation 32 ml/min; Estimated Glomerular Filt Rate 49; Glucose 122 mg/dL (65-110); Potassium 3.8 mmol/L (3.4-5.0); Sodium 129 mmol/L (137-145); Total Protein 5.0 g/dL (6.3-8.2)
[2025-06-28 05:28] LABS: Troponin I 0.651 ng/mL (0.000-0.034)
[2025-06-28] MEDS: LACTATED RINGERS 1,000 ML 999 ML IV CONT ×2 (08:26→11:25)
[2025-06-28 08:33] LABS: Hematocrit 25.0 % (42.0-52.0); Hemoglobin 8.2 g/dL (14.0-18.0); Mean Corpuscular HGB Conc 32.8 g/dl (32-36); Mean Corpuscular Hemoglobin 31.2 pg (26-34); Mean Corpuscular Volume 95.1 fl (80-100); Platelet Count Result 195 k/mm3 (150-375); Red Blood Count 2.63 M/mm3 (4.6-6.20); Troponin I 0.837 ng/mL (0.000-0.034); White Blood Count 30.7 K/mm3 (4.5-10.0)
--- NOTE | 2025-06-28 08:52 | WPDURCON ---
Assessment and Plan Assessment and plan (1) Gross hematuria: Code(s): R31.0 - Gross hematuria Status: Acute (2) Hydronephrosis: Code(s): N13.30 - Unspecified hydronephrosis Status: Acute Plan -CT AP from yesterday shows Hyperdense soft tissue of the bladder lumen, likely blood clot. Limon catheter present in the bladder lumen. there is bilateral renal cysts. There is mild right hydronephrosis. - upon examining the patient, it was noted that his catheter was not draining and had clots in the bag and tubing. I attempted to flush the catheter and after 150 mL worth of instillation I was unable to aspirate anything back. That was [address] Salcido replaced the catheter with a 24 [place] hematuria catheter at the bedside And was able to flush Clots until urine was light pink and clear -ua mainly significant for just blood. -wbc increased to 30.7 -cr went from 1.01 to 1.39 today. this was likely secondary to bladder not draining due to catheter being clotted off. trend -maintain cbi with moderate flow to keep urine clear. - Consider renal ultrasound in 48 hours to re-evaluate hydronephrosis. -urology to follow. Urology Consult Note HPI Date Seen: 06/28/25 Requesting Physician: Onel mir Oca, MD Primary Care Provider: Kayla Lindquist APRN Consult Narrative Narrative: Khoa Philippe is a 85 year old male with a history of paroxysmal AFib, GERD, hypertension and prostate cancer. The patient previously had gone through some urology procedures over the last 2 weeks. The patient was sent home with Limon catheter which was subsequently removed today. Patient was sent home without a Limon catheter. When the patient got home today he went to the bathroom and then does not recall getting back on the couch. Is reported that the saw him get down on his knees and slumped over on the ground and fell asleep. When EMS came with to their home it was noted that the patient was down for few hours. He denies any chest pain or shortness of breath any abdominal pain, nausea, vomiting, or headache. Head CT was read as no acute intracranial hemorrhage or extra-axial fluid collections. Urine is turbid with 3+ protein, 2+ ketones, 3+ blood, 1+ urine bilirubin, 51-100 rbc's. The Limon catheter was placed in the emergency room. Patient was recently hospitalized and we were consulted for scrotal pain at that time. At that time his UA was unremarkable as well as his scrotal ultrasound that had no acute findings. Patient does have a history of prostate cancer status post XRT and ADT. PSAs have been appropriately low. He has been having difficulties with recent Urinary retention. Review of Systems Review of Systems: per 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) 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 bleeding CAD (coronary artery disease) With angioplasty and 2 stents in 1999 COVID Prostate cancer 2021 Vitamin D deficiency Left foot drop Lumbar spinal stenosis Essential (primary) hypertension Gastro-esophageal reflux disease without esophagitis Glaucoma History of prostate cancer Mixed hyperlipidemia Seborrheic keratosis Surgical History Surgical History Status post cataract extraction of both eyes with insertion of intraocular lens Status post total replacement of right shoulder History of eye surgery left eye retinal surgery History of coronary artery stent placement , 1999 Status post total replacement of left shoulder Family History Family History Father Family history of heart disease in male family member before age 55, Onset Age: 58 Hypertension Acute myocardial infarction Heart disease Mother Bladder cancer Cerebrovascular accident Sibling , 2021 Liver cancer, primary, with metastasis from liver to other site sister Social History Social History Social History: He has been for 63 years. He and his raised 1 daughter and 1 son. 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 He is a lifelong nonsmoker and denies history of illicit substance use. He works out at least once a week at [employer] usually on the treadmill. Code status: Full code Surrogate decision maker: Smoking status: Never smoker Second hand tobacco smoke exposure: No Alcohol intake: never Alcohol use details: occasionally Substance use: never Substance use type: does not use Do You Feel Safe in your Home?: Yes Lack of Transportation: No Lack of Food: Never True Current Housing: I Have Housing Concerned About Future Housing: No Difficulty Paying Gas/Electric Bills: No Difficulty Paying for Meds: No Currently Unemployed: No Education: Trade/Vocational Certificate Difficulty w/ Childcare or Family Care: No Living arrangements: with family Occupation/Education: retired Gender identity (if verbalized by the patient): Male Spiritual care concerns: No Agree to blood products: Yes Meds Home Medications and Allergies Home Medications ?Medication ?Instructions ?Recorded ?Confirmed ?Type aspirin 81 mg tablet,delayed 81 mg PO DAILY 11/14/20 06/28/25 History release latanoprost 0.005 % eye drops 1 drp EACH EYE HS 11/14/20 06/28/25 History multivitamin (Multiple Vitamins 1 tablet PO DAILY 11/14/20 06/28/25 History tablet) cholecalciferol (vitamin D3) 10 10 mcg PO DAILY 11/19/21 06/28/25 History mcg (400 unit) tablet vit C 250 mg-vit E 90 mg-zinc 40 1 tablet PO BID 11/19/21 06/28/25 History mg-copper 1 lz-rgqtbt-knwbnu capsule (PreserVision AREDS-2) krill 300 mg-omega 3 90 mg-dha 24 1 cap PO DAILY 02/02/23 06/28/25 History mg-epa 50 mi-qomtzbx-lebjt capsule (MegaRed [place]-3 Krill Oil) apixaban 5 mg tablet (Eliquis) 5 mg PO Q12HR #60 tabs 07/22/24 06/28/25 Rx metoprolol succinate 100 mg 100 mg PO QAM #30 tabs 07/22/24 06/28/25 Rx tablet,extended release 24 hr (Toprol XL) calcium carbonate 500 mg PO DAILY PRN Indigestion 08/04/24 06/28/25 History acetaminophen 500 mg capsule 1,000 mg (2 x 500 mg) PO Q6-8H PRN 10/05/24 06/28/25 Rx pain #90 caps alendronate 35 mg tablet See Rx Instructions .Route 04/10/25 06/28/25 Rx .COMPLEX #12 tabs atorvastatin 40 mg tablet 40 mg PO HS #90 tabs 04/10/25 06/28/25 Rx lisinopril 20 mg tablet 20 mg PO DAILY #90 tabs 04/10/25 06/28/25 Rx Allergies Allergy/AdvReac Type Severity Reaction Status Date / Time ioversol Allergy Severe Itching Verified 06/28/25 01:26 iodine Allergy Unknown ITCHING Verified 06/28/25 01:26 WITH IV CONTRAST--NO PROBLEM WITH TOPICAL IODINE Vital Signs Vital Signs - 24 hr 06/27/25 19:56 06/27/25 21:30 06/27/25 21:32 Temperature 98.5 F Pulse Rate 86 135 H Respiratory Rate 16 40 H Blood Pressure 142/82 H 192/135 H Pulse Oximetry 96 85 L 96 Oxygen Delivery Room Air Nasal Cannula Oxygen Flow Rate 2 06/27/25 22:07 06/27/25 22:16 06/27/25 23:46 Temperature Pulse Rate 116 H 114 H 117 H Respiratory Rate 35 H 22 H 25 H Blood Pressure 145/84 H 141/80 H 140/67 Pulse Oximetry 96 99 95 Oxygen Delivery Oxygen Flow Rate 06/27/25 23:47 06/28/25 00:25 06/28/25 01:22 Temperature 98.5 F Pulse Rate 114 H 126 H 125 H Respiratory Rate 22 H 36 H 22 H Blood Pressure 145/77 H 133/57 L Pulse Oximetry 97 92 93 Oxygen Delivery Nasal Cannula Oxygen Flow Rate 2 06/28/25 02:00 06/28/25 03:24 06/28/25 04:00 Temperature Pulse Rate 116 H 111 H Respiratory Rate Blood Pressure Pulse Oximetry Oxygen Delivery CPAP Oxygen Flow Rate 06/28/25 04:00 06/28/25 06:00 06/28/25 08:00 Temperature 98.5 F 98.2 F Pulse Rate 107 H 102 H 105 H Respiratory Rate 22 H 21 H Blood Pressure 91/43 L 72/41 L Pulse Oximetry 99 100 Oxygen Delivery Oxygen Flow Rate Exam Narrative: patient is pale and sleepy Const: General: no acute distress and uncomfortable Eyes: General: appearance normal, both eyes and all related structures Resp: Effort & Inspection: normal respiratory effort Urinary Catheter: Urinary Catheter: patent and draining ( [address] hematuria catheter placed by Dr. Salcido. bladder irrigated to light pink urine. Multiple clots removed. CBI now running at a moderate rate to keep urine clear.) and urine pink Skin: Other: Pale Neuro: Speech: normal speech Psych: Other: sleepy Results Labs 06/28/25 07:51 06/28/25 04:34 Labs: Short CBC 06/27/25 06/28/25 06/28/25 Range/Units 20:17 01:43 04:34 WBC 20.6 H (4.5-10.0) K/mm3 Hgb 9.9 L 9.4 L 8.9 L (14.0-18.0) g/dL Hct 30.6 L 29.1 L 26.9 L (42.0-52.0) % Plt Count 289 (150-375) k/mm3 BMP 06/27/25 06/28/25 06/28/25 20:17 01:43 04:34 Sodium 129 L 129 L 129 L Potassium 4.0 3.8 Chloride 98 103 Carbon Dioxide 26 22 BUN 17 20 Creatinine 1.01 1.39 H Glucose 116 H 122 H Calcium 8.3 L 7.5 L Cardiac Enzymes 06/27/25 06/28/25 06/28/25 Range/Units 20:17 01:43 04:34 Total Creatine Kinase 217 H (55-170) U/L Troponin I 0.449 H* 0.651 H* D (0.000-0.034) ng/mL 06/28/25 Range/Units 07:51 Total Creatine Kinase (55-170) U/L Troponin I 0.837 H* D (0.000-0.034) ng/mL Liver Function 06/27/25 06/28/25 Range/Units 20:17 04:34 Total Bilirubin 0.8 0.6 (0.2-1.3) mg/dL AST 41 53 (17-59) U/L ALT 24 24 (6-50) U/L Alkaline Phosphatase 89 95 (38-126) U/L Albumin 3.4 L 2.5 L (3.5-5.1) g/dL Urine 06/27/25 Range/Units 21:04 Urine Color Red H (Yellow) Urine Appearance Turbid H (Clear) Urine pH 7.0 (5.0-9.0) Ur Specific [place] 1.020 (1.001-1.035) Urine Protein 3+ H (Negative) mg/dL Urine Glucose (UA) Negative (Negative) mg/dL
[2025-06-28 09:03] LABS: Neutrophils Percent Manual 60 % (46-73); Total Cells Counted 100
[2025-06-28 09:04] LABS: Band Neutrophils Percent 25 % (0-6); Lymphocytes Absolute Manual 1.53 K/mm3 (1.1-4.5); Lymphocytes Percent Manual 5 % (18-44); Metamyelocytes Percent 1 %; Monocytes Absolute Manual 2.76 K/mm3 (0.1-0.90); Monocytes Percent Manual 9 % (3-9); Neutrophils Absolute Manual 26.09 K/mm3 (1.3-6.7); Schistocytes None Seen
--- NOTE | 2025-06-28 10:28 | WPDCNINT ---
Assessment and Plan Assessment and plan (1) Hypotension: Code(s): I95.9 - Hypotension, unspecified Status: Acute Assessment and Plan: Hypotension likely secondary to acute blood loss anemia and possibly sepsis from UTI Check lactic acid and procalcitonin level Patient received only 1 L bolus patient will be given another 1 L and also 1 unit PRBC this will be followed by maintenance IV fluids Will also give albumin Treatment of infection as below Patient may need vasopressors if does not improve with these interventions and may need to be transferred to ICU for vasopressor support. (2) Sepsis: Code(s): A41.9 - Sepsis, unspecified organism Status: Acute Assessment and Plan: Sepsis likely secondary to UTI. Check procalcitonin and lactic acid level IV fluid IV Rocephin Afebrile Will DC doxycycline and vancomycin at this time (3) Paroxysmal A-fib: Code(s): I48.0 - Paroxysmal atrial fibrillation Status: Acute Assessment and Plan: Not on anticoagulation due to persistent hematuria. Currently in sinus rhythm Monitor (4) UTI (urinary tract infection): Code(s): N39.0 - Urinary tract infection, site not specified Status: Acute Assessment and Plan: See above (5) Hematuria: Code(s): R31.9 - Hematuria, unspecified Status: Acute Assessment and Plan: Persistent hematuria 4 weeks. Not on anticoagulation. Urology consulted Urologist planning to change the Limon catheter which appears to be occluded and start patient on CBI. May need to go for cystoscopy and evacuation. (6) Acute blood loss anemia: Code(s): D62 - Acute posthemorrhagic anemia Status: Acute Assessment and Plan: Patient has had persistent hematuria for last few weeks. His hemoglobin has been gradually trending down. It was at least 10 yesterday and is a 0.2 today 1 unit PRBC transfusion ordered Monitor hemoglobin closely Transfuse additionally if needed (7) MOOKIE (acute kidney injury): Code(s): N17.9 - Acute kidney failure, unspecified Status: Acute Assessment and Plan: MOOKIE likely secondary to obstruction, hypotension and hypovolemia IV fluid Monitor urine output electrolytes and creatinine CT scan does not show any stone or hydronephrosis. (8) Electrolyte abnormality: Code(s): E87.8 - Other disorders of electrolyte and fluid balance, not elsewhere classified Status: Acute Assessment and Plan: Replace calcium magnesium and potassium Plan DVT prophylaxis -SCD Nutrition -heart healthy diet Code Status -patient wishes to be DNR DNI. This conversation was done in presence of patient's son who is in agreement with patient's wishes and request Discussed with internal medicine provider. Patient will continue to be cared at this time at step-down unit. If these interventions do not help and patient's the pressure remains low and he needs vasopressor support he will be transferred to ICU at that point. Case also discussed urology nurse practitioner. Total Critical Care Time - 30 minutes Due to a high probability of clinically significant, life threatening deterioration, the patient required my highest level of preparedness to intervene emergently and I personally spent this critical care time directly and personally managing the patient. This critical care time included obtaining a history; examining the patient; pulse oximetry; ordering and review of studies; arranging urgent treatment with development of a management plan; evaluation of patient's response to treatment; frequent reassessment; and discussions with other providers. It was exclusive of separately billable procedures and treating other patients and teaching time. Please see Assessment and Plan section and the rest of the note for further information on patient assessment and treatment Physician Primary [facility] Sports Medicine Consult Note Consult date: 06/28/25 Reason for consult: Hypotension, hematuria HPI: Khoa Philippe is a 85 year old male with a past medical history of paroxysmal AFib but not on anticoagulation over last few weeks due to persistent hematuria, GERD, hypertension and prostate cancer with indwelling Limon was seen by urologist at his clinic yesterday. His Limon catheter was removed. Patient was sent home with a voiding trial. Patient states at home he had difficulty passing urine and started having hematuria. He was brought back to the ER. His only complaint was that he was feeling weak and tired. Workup in the ER showed Head CT was read as no acute intracranial hemorrhage or extra-axial fluid collections. Chest/abdomen/pelvis CTA was read as a followingIMPRESSION: 1. Hyperdense soft tissue of the bladder lumen, likely blood clot. Limon catheter present in the bladder lumen. 2: No evidence for aortic aneurysm or dissection. 3: Stenosis of the celiac axis, SMA and renal arteries. WBC 20.6 with H&H 9.9 and 30.6 on his hematology. ABGs pH 7.480 with low bicarb and PO2 was low at 73.4. Oxygen was applied at 2 L per nasal cannula. Sodium was low at 129. His glucose is 116. Lactic is 3.3. Calcium is low at 8.3. Urine is turbid with 3+ protein, 2+ ketones, 3+ blood, 1+ urine bilirubin, 51-100 rbc's. Patient was given diltiazem IV push x1 Benadryl, prednisone, morphine, Rocephin, and IV fluids. The Limon catheter was placed in the emergency room. Patient was admitted on step-down unit and was started on IV fluids 100 mL/hour. Overnight his Limon appear to have been occluded and is not passing any urine. Urology was consulted. I was consulted this morning due to hypotension.. When I evaluate the patient he states that he feels weak and tired but otherwise denies any new physical complaints. Patient denies fever, chest pain, shortness of breath, cough, nausea vomiting, abdominal pain,, diarrhea, headache or constipation. 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 CAD (coronary artery disease) With angioplasty and 2 stents in 1999 COVID Prostate cancer 2021 Vitamin D deficiency Left foot drop Lumbar spinal stenosis Essential (primary) hypertension Gastro-esophageal reflux disease without esophagitis Glaucoma History of prostate cancer Mixed hyperlipidemia Seborrheic keratosis Surgical History Surgical History Status post cataract extraction of both eyes with insertion of intraocular lens Status post total replacement of right shoulder History of eye surgery left eye retinal surgery History of coronary artery stent placement 1999 Status post total replacement of left shoulder Family History Family History Father Family history of heart disease in male family member before age 55, Onset Age: 58 Hypertension Acute myocardial infarction Heart disease Mother Bladder cancer Cerebrovascular accident Sibling , 2021 Liver cancer, primary, with metastasis from liver to other site sister Social History Social History Social History: He has been for 63 years. He and his raised 1 daughter and 1 son. 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 He drinks 1 glass of wine couple of times a month. He is a lifelong nonsmoker and denies history of illicit substance use. He works out at least once a week at [employer] usually on the treadmill. Code status: Full code Surrogate decision maker: Smoking status: Never smoker Second hand tobacco smoke exposure: No Alcohol intake: never Alcohol use details: occasionally Substance use: never Substance use type: does not use Do You Feel Safe in your Home?: Yes Lack of Transportation: No Lack of Food: Never True Current Housing: I Have Housing Concerned About Future Housing: No Difficulty Paying Gas/Electric Bills: No Difficulty Paying for Meds: No Currently Unemployed: No Education: Trade/Vocational Certificate Difficulty w/ Childcare or Family Care: No Living arrangements: with family Occupation/Education: retired Gender identity (if verbalized by the patient): Male Spiritual care concerns: No Agree to blood products: Yes Meds Home Medications and Allergies Home Medications ?Medication ?Instructions ?Recorded ?Confirmed ?Type aspirin 81 mg tablet,delayed 81 mg PO DAILY 11/14/20 06/28/25 History release latanoprost 0.005 % eye drops 1 drp EACH EYE HS 11/14/20 06/28/25 History multivitamin (Multiple Vitamins 1 tablet PO DAILY 11/14/20 06/28/25 History tablet) cholecalciferol (vitamin D3) 10 10 mcg PO DAILY 11/19/21 06/28/25 History mcg (400 unit) tablet vit C 250 mg-vit E 90 mg-zinc 40 1 tablet PO BID 11/19/21 06/28/25 History mg-copper 1 [id number] capsule (PreserVision AREDS-2) krill 300 mg-omega 3 90 mg-dha 24 1 cap PO DAILY 02/02/23 06/28/25 History mg-epa 50 [id number]-knbntlw-lsmcu capsule (MegaRed Paradox-3 Krill Oil) apixaban 5 mg tablet (Eliquis) 5 mg PO Q12HR #60 tabs 07/22/24 06/28/25 Rx metoprolol succinate 100 mg 100 mg PO QAM #30 tabs 07/22/24 06/28/25 Rx tablet,extended release 24 hr (Toprol XL) calcium carbonate 500 mg PO DAILY PRN Indigestion 08/04/24 06/28/25 History acetaminophen 500 mg capsule 1,000 mg (2 x 500 mg) PO Q6-8H PRN 10/05/24 06/28/25 Rx pain #90 caps alendronate 35 mg tablet See Rx Instructions .Route 04/10/25 06/28/25 Rx .COMPLEX #12 tabs atorvastatin 40 mg tablet 40 mg PO HS #90 tabs 04/10/25 06/28/25 Rx lisinopril 20 mg tablet 20 mg PO DAILY #90 tabs 04/10/25 06/28/25 Rx Allergies Allergy/AdvReac Type Severity Reaction Status Date / Time ioversol Allergy Severe Itching Verified 06/28/25 01:26 iodine Allergy Unknown ITCHING Verified 06/28/25 01:26 WITH IV CONTRAST--NO PROBLEM WITH TOPICAL IODINE Vital Signs Vital Signs - 24 hr 06/27/25 19:56 06/27/25 21:30 06/27/25 21:32 Temperature 36.9 C Pulse Rate 86 135 H Respiratory Rate 16 40 H Blood Pressure 142/82 H 192/135 H Pulse Oximetry 96 85 L 96 Oxygen Delivery Room Air Nasal Cannula Oxygen Flow Rate 2 06/27/25 22:07 06/27/25 22:16 06/27/25 23:46 Temperature Pulse Rate 116 H 114 H 117 H Respiratory Rate 35 H 22 H 25 H Blood Pressure 145/84 H 141/80 H 140/67 Pulse Oximetry 96 99 95 Oxygen Delivery Oxygen Flow Rate 06/27/25 23:47 06/28/25 00:25 06/28/25 01:22 Temperature 36.9 C Pulse Rate 114 H 126 H 125 H Respiratory Rate 22 H 36 H 22 H Blood Pressure 145/77 H 133/57 L Pulse Oximetry 97 92 93 Oxygen Delivery Nasal Cannula Oxygen Flow Rate 2 06/28/25 02:00 06/28/25 03:24 06/28/25 04:00 Temperature Pulse Rate 116 H 111 H Respiratory Rate Blood Pressure Pulse Oximetry Oxygen Delivery CPAP Oxygen Flow Rate 06/28/25 04:00 06/28/25 06:00 06/28/25 08:00 Temperature 36.9 C 36.8 C Pulse Rate 107 H 102 H 105 H Respiratory Rate 22 H 21 H Blood Pressure 91/43 L 72/41 L Pulse Oximetry 99 100 Oxygen Delivery Oxygen Flow Rate 06/28/25 09:47 Temperature Pulse Rate Respiratory Rate Blood Pressure 85/47 L Pulse Oximetry Oxygen Delivery Oxygen Flow Rate Exam Narrative: General: Pt is alert awake and in NAD Lungs/Chest: Trachea central Clear BS B/L, No crackles or wheezing. Cardiac: RRR. Normal S1 S2. No murmurs Circulation: Bilateral dorsalis pedis pulses are palpable Abdomen: Normal bowel sounds.. Soft. NT. ND. Extremities: No clubbing, cyanosis or edema. Warm : Limon in place with bloody urine Neurologic: Follows commands. Moves all 4 extremities PERRL AO x3 slight hearing impaired Skin: No Rash Results Labs 06/28/25 07:51 06/28/25 04:34 Labs: Impressions Head CT 06/27/25 21:22 IMPRESSION: No acute intracranial hemorrhage or extra axial fluid collections. All CT scans at this facility are performed using low dose modulation techniques as appropriate to perform exam including the following: automated exposure control; use of iterative reconstruction technique; adjustment of the mA and/or kV according to patient size (this includes techniques or standardized protocols for targeted exams where dose is matched to indication/reason for exam). Chest/Abdomen/Pelvis CTA 06/27/25 22:00 IMPRESSION: 1. Hyperdense soft tissue of the bladder lumen, likely blood clot. Limon catheter present in the bladder lumen. 2: No evidence for aortic aneurysm or dissection. 3: Stenosis of the celiac axis, SMA and renal arteries. Short CBC 06/27/25 06/28/25 06/28/25 Range/Units 20:17 01:43 04:34 WBC 20.6 H (4.5-10.0) K/mm3 Hgb 9.9 L 9.4 L 8.9 L (14.0-18.0) g/dL Hct 30.6 L 29.1 L 26.9 L (42.0-52.0) % Plt Count 289 (150-375) k/mm3 06/28/25 Range/Units 07:51 WBC 30.7 H (4.5-10.0) K/mm3 Hgb 8.2 L (14.0-18.0) g/dL Hct 25.0 L (42.0-52.0) % Plt Count 195 (150-375) k/mm3 BMP 06/27/25 06/28/25 06/28/25 20:17 01:43 04:34 Sodium 129 L 129 L 129 L Potassium 4.0 3.8 Chloride 98 103 Carbon Dioxide 26 22 BUN 17 20 Creatinine 1.01 1.39 H Glucose 116 H 122 H Calcium 8.3 L 7.5 L Cardiac Enzymes 06/27/25 06/28/25 06/28/25 Range/Units 20:17 01:43 04:34 Total Creatine Kinase 217 H (55-170) U/L Troponin I 0.449 H* 0.651 H* D (0.000-0.034) ng/mL 06/28/25 Range/Units 07:51 Total Creatine Kinase (55-170) U/L Troponin I 0.837 H* D (0.000-0.034) ng/mL Liver Function 06/27/25 06/28/25 Range/Units 20:17 04:34 Total Bilirubin 0.8 0.6 (0.2-1.3) mg/dL AST 41 53 (17-59) U/L ALT 24 24 (6-50) U/L Alkaline Phosphatase 89 95 (38-126) U/L Albumin 3.4 L 2.5 L (3.5-5.1) g/dL Urine 06/27/25 Range/Units 21:04 Urine Color Red H (Yellow) Urine Appearance Turbid H (Clear) Urine pH 7.0 (5.0-9.0) Ur Specific Lookout 1.020 (1.001-1.035) Urine Protein 3+ H (Negative) mg/dL Urine Glucose (UA) Negative (Negative) mg/dL Quality VTE Prophylaxis VTE prophylaxis: mechanical ordered Hospitalist MIPS Advance Care Plan I have confirmed that the patient's Advanced Care Plan is present, code status is documented, or surrogate decision maker is listed in patient medical record.: Yes Medication Reconciliation I have utilized all available resources to obtain, update and review the patients current medications (includes all prescriptions, OTC, herbals, cannabis, and nutritional supplements).: Yes
[2025-06-28] MEDS: LIDOCAINE 2% GEL UROJET 10 ML PKG 20 ML MUCOUS MEM (11:25)
[2025-06-28] MEDS: WATER FOR IRRIGATION, STERILE 1,000 ML BOTTLE 1000 ML ×2 (11:25→11:31)
[2025-06-28] MEDS: LACTATED RINGERS 1,000 ML 125 ML IV CONT ×2 (11:26→15:54)
[2025-06-28] MEDS: SODIUM CHLORIDE 0.9% IV 250 ML 30 ML IV CONT (11:28)
--- NOTE | 2025-06-28 11:38 | P.PNIM_ITS ---
Progress Note: A&P Assessment and Plan (1) Hypotension: Code(s): I95.9 - Hypotension, unspecified Status: Acute Assessment and Plan: Hypotension likely secondary to acute blood loss anemia and possibly sepsis from UTI Check lactic acid and procalcitonin level Patient received only 1 L bolus patient will be given another 1 L and also 1 unit PRBC this will be followed by maintenance IV fluids Will also give albumin Treatment of infection as below Patient may need vasopressors if does not improve with these interventions and may need to be transferred to ICU for vasopressor support. (2) Sepsis: Code(s): A41.9 - Sepsis, unspecified organism Status: Acute Assessment and Plan: Patient met sepsis criteria with leukocytosis, tachycardia, tachypnea Source of infection appears to be UTI Lactic acid elevated at 3.3 on arrival 30 milliliters/kilograms of fluid given on the floor Check procalcitonin and lactic acid level IV fluid IV Rocephin initiated Afebrile Will DC doxycycline and vancomycin at this time Cardiac monitoring Trend labs and vital signs (3) Paroxysmal A-fib: Code(s): I48.0 - Paroxysmal atrial fibrillation Status: Acute Assessment and Plan: Not on anticoagulation due to persistent hematuria. Currently in sinus rhythm Monitor (4) UTI (urinary tract infection): Code(s): N39.0 - Urinary tract infection, site not specified Status: Acute Assessment and Plan: UA appears infectious Could be from urinary retention IV ceftriaxone for now Trend urine output Culture pending Adjust therapy as indicated (5) Hematuria: Code(s): R31.9 - Hematuria, unspecified Status: Acute Assessment and Plan: Persistent hematuria 4 weeks. Not on anticoagulation. Urology consulted 3 way catheter inserted CBI per Urology May need to go for cystoscopy and evacuation. (6) Acute blood loss anemia: Code(s): D62 - Acute posthemorrhagic anemia Status: Acute Assessment and Plan: Patient has had persistent hematuria for last few weeks. His hemoglobin has been gradually trending down. It was at least 10 yesterday and is a 8.2 today 1 unit PRBC transfusion ordered Monitor hemoglobin closely Transfuse additionally if needed Consider anemia labs Transfuse if hemoglobin less than 7 (7) MOOKIE (acute kidney injury): Code(s): N17.9 - Acute kidney failure, unspecified Status: Acute Assessment and Plan: Current creatinine 1.39 MOOKIE likely secondary to obstruction, hypotension and hypovolemia IV fluid Monitor urine output electrolytes and creatinine CT scan does not show any stone or hydronephrosis. (8) Electrolyte abnormality: Code(s): E87.8 - Other disorders of electrolyte and fluid balance, not elsewhere classified Status: Acute Assessment and Plan: Replace calcium magnesium and potassium Current potassium 3.8, calcium 7.5 Labs in a.m. Trend accordingly Time Spent With Patient Time: 65 minutes was used on this encounter Subjective Date/time seen: 06/28/25 11:38 Interval history: 06/28/2025 0830 mentally patient seems to be doing better today. Denies any current chest pain, shortness a breath, nausea, vomiting, diarrhea constipation. However it is noted the patient is hypotensive. 2 L of fluids was given however no improvements noted. urology to put in a 3 way catheter and currently has CBI going. Due to the significant hypotension plus blood pressure being 78/46 patient will require pressors and has been transferred to ICU. 06/28/25 0053 This is an 85-year-old male patient who resides with his . He has a history of paroxysmal AFib, GERD, hypertension and prostate cancer. The patient previously had gone through some urology procedures over the last 2 weeks. The patient was sent home with Limon catheter which was subsequently removed today. Patient was sent home without a Limon catheter. When the patient got home today he went to the bathroom and then does not recall getting back on the couch. Is reported that the saw him get down on his knees and slumped over on the ground and fell asleep. When EMS came with to their home it was noted that the patient was down for few hours. He denies any chest pain or shortness of breath any abdominal pain, nausea, vomiting, or headache. Head CT was read as no acute intracranial hemorrhage or extra-axial fluid collections. Chest/abdomen/pelvis CTA was read as a followingIMPRESSION: 1. Hyperdense soft tissue of the bladder lumen, likely blood clot. Limon catheter present in the bladder lumen. 2: No evidence for aortic aneurysm or dissection. 3: Stenosis of the celiac axis, SMA and renal arteries. The patient is very lethargic and not answering questions. Lab 20.6 with H&H 9.9 and 30.6 on his hematology. ABGs pH 7.480 with low bicarb and PO2 was low at 73.4. Oxygen was applied at 2 L per nasal cannula. His heart rate has been in the 1 teens with blood pressure 145/77. His lowest O2 saturation was 85 point has come up to 97%. Sodium was low at 129. His glucose is 116. Lactic is 3.3. Calcium is low at 8.3. Urine is turbid with 3+ protein, 2+ ketones, 3+ blood, 1+ urine bilirubin, 51-100 rbc's. Patient was given diltiazem IV push x1 Benadryl, prednisone, morphine, Rocephin, and IV fluids. The Limon catheter was placed in the emergency room. The patient is being admitted to inpatient status on the date of service of 06/28/2025. Review of Systems Review of Systems: All systems reviewed & are unremarkable except as noted in HPI and below Exam Narrative: General: well-nourished, ill-appearing 85-year-old male, laying in bed, comfortable, NARD Neuro: awake, alert and oriented x4, speech clear, no focal neuro deficits noted HEENMT: normocephalic, atraumatic, EOMI, sclerae anicteric, moist oral mucosa Respiratory: Clear to auscultation bilaterally without crackles, rhonchi or wheezes, nonlabored breathing Cardio: tachycardiac rate, regular rhythm with S1-S2 Abdomen: nondistended, normoactive bowel sounds, soft, nontender to palpation Extremities: no edema, erythema, or tenderness to palpation, DP pulses 2+ bilaterally Skin: no rashes or lesions, warm and dry Psych: appropriate mood and affect, judgment and insight intact Objective Data Vital Signs Vital Signs: Vital Signs - 24 hr 06/27/25 19:56 06/27/25 21:30 06/27/25 21:32 Temperature 98.5 F Pulse Rate 86 135 H Respiratory Rate 16 40 H Blood Pressure 142/82 H 192/135 H Pulse Oximetry 96 85 L 96 Oxygen Delivery Room Air Nasal Cannula Oxygen Flow Rate 2 06/27/25 22:07 06/27/25 22:16 06/27/25 23:46 Temperature Pulse Rate 116 H 114 H 117 H Respiratory Rate 35 H 22 H 25 H Blood Pressure 145/84 H 141/80 H 140/67 Pulse Oximetry 96 99 95 Oxygen Delivery Oxygen Flow Rate 06/27/25 23:47 06/28/25 00:25 06/28/25 01:22 Temperature 98.5 F Pulse Rate 114 H 126 H 125 H Respiratory Rate 22 H 36 H 22 H Blood Pressure 145/77 H 133/57 L Pulse Oximetry 97 92 93 Oxygen Delivery Nasal Cannula Oxygen Flow Rate 2 06/28/25 02:00 06/28/25 03:24 06/28/25 04:00 Temperature Pulse Rate 116 H 111 H Respiratory Rate Blood Pressure Pulse Oximetry Oxygen Delivery CPAP Oxygen Flow Rate 06/28/25 04:00 06/28/25 06:00 06/28/25 08:00 Temperature 98.5 F 98.2 F Pulse Rate 107 H 102 H 105 H Respiratory Rate 22 H 21 H Blood Pressure 91/43 L 72/41 L Pulse Oximetry 99 100 Oxygen Delivery Oxygen Flow Rate 06/28/25 09:47 Temperature Pulse Rate Respiratory Rate Blood Pressure 85/47 L Pulse Oximetry Oxygen Delivery Oxygen Flow Rate Intake/Output Intake/Output: Intake & Output 06/25/25 06/26/25 06/27/25 06/28/25 22:59 23:59 23:59 23:59 Intake Total 1050 480 Output Total 600 Balance 1050 -120 Meds/Results Medications: Active Medications Generic Name Dose Route Start Last Admin Trade Name Freq PRN Reason Stop Dose Admin Acetaminophen 650 mg 06/28/25 01:26 Acetaminophen 650 Mg Suppository RECTAL Q6H PRN Mild Pain (1-3) or Fever Ceftriaxone Sodium 1 gm/ 50 mls @ 100 mls/hr 06/28/25 22:00 Sodium Chloride IVPB Q24H EUGENIO Sodium Chloride 250 mls @ 30 mls/hr 06/28/25 09:47 06/28/25 11:28 Normal Saline Iv IV CONT 06/28/25 18:06 30 mls/hr .Q8H20M STA Administration Lactated Ringer's 1,000 mls @ 125 mls/hr 06/28/25 10:30 06/28/25 11:26 Lr - Lactated Ringers Iv IV CONT 125 mls/hr .Q8H EUGENIO Administration Calcium Gluconate 2,000 mg in 100 mls @ 100 mls/hr 06/28/25 10:41 Calcium Gluc 2,000 Mg/Ns 100ml IVPB 06/28/25 11:40 ONCE ONE Magnesium Sulfate 2 gm in 50 mls @ 25 mls/hr 06/28/25 10:41 Magnesium Sulf 2 Gm/Water 50ml IVPB 06/28/25 12:40 ONCE ONE Albumin Human 100 mls @ 60 mls/hr 06/28/25 12:00 Albutein IVPB 06/29/25 07:39 Q6HR EUGENIO Phenylephrine HCl 50 mg/ 250 mls @ 12 mls/hr 06/28/25 11:40 Sodium Chloride IV CONT .[id number] EUGENIO Protocol 40 MCG/MIN Latanoprost 1 drop 06/28/25 21:00 Latanoprost 0.005% Op Soln 2.5 Ml Btl EACH EYE HS EUGENIO Perflutren Lipid Microsphere 0 ml 06/28/25 03:25 Perflutren Lipid Microspheres 1.5 Ml Vial Diluted To 10 Ml Total Volume IV PUSH 07/01/25 03:25 ONCE PRN adequate visualization Protocol Radiology Results: ITS Impressions Head CT 06/27/25 21:22 IMPRESSION: No acute intracranial hemorrhage or extra axial fluid collections. All CT scans at this facility are performed using low dose modulation techniques as appropriate to perform exam including the following: automated exposure control; use of iterative reconstruction technique; adjustment of the mA and/or kV according to patient size (this includes techniques or standardized protocols for targeted exams where dose is matched to indication/reason for exam). Chest/Abdomen/Pelvis CTA 06/27/25 22:00 IMPRESSION: 1. Hyperdense soft tissue of the bladder lumen, likely blood clot. Limon catheter present in the bladder lumen. 2: No evidence for aortic aneurysm or dissection. 3: Stenosis of the celiac axis, SMA and renal arteries. Labs Labs: Laboratory Results - last 24 hr 06/27/25 06/27/25 06/27/25 20:17 21:04 22:33 WBC 20.6 H RBC 3.24 L Hgb 9.9 L Hct 30.6 L MCV 94.4 MCH 30.6 MCHC 32.4 RDW 14.6 H Plt Count 289 MPV 8.7 Immature Gran % (Auto) Not Reportable Neut % (Auto) Not Reportable Lymph % (Auto) Not Reportable [place] % (Auto) Not Reportable Eos % (Auto) Not Reportable Baso % (Auto) Not Reportable Lymph # (Auto) Not Reportable [place] # (Auto) Not Reportable Eos # (Auto) Not Reportable Baso # (Auto) Not Reportable Abs Immat Gran (auto) Not Reportable Absolute Neuts (auto) Not Reportable Absolute Nucleated RBC Not Reportable Total Counted 100 Neutrophils % (Manual) 90 H Band Neutrophils % 7 H Lymphocytes % (Manual) 1 L Monocytes % (Manual) 2 L Metamyelocytes % Nucleated RBC % Not Reportable Abs Neuts (Manual) 19.98 H Abs Lymphs (Manual) 0.20 L Abs Monocytes (Manual) 0.41 Platelet Estimate Adequate Schistocytes None seen Puncture Site Right brachial ABG pH 7.480 H ABG pCO2 28.3 L ABG pO2 73.4 L ABG PO2/FiO2 Ratio 2.62 ABG HCO3 20.6 L ABG O2 Saturation 95.9 ABG O2 Content 13.4 L ABG Base Excess -2.1 A-a Gradient 92.8 Oxyhemoglobin 94.9 Total Hemoglobin 10.0 L O2 Delivery Device Nasal cannula O2 Liters/Min 2.0 FiO2 28 Sodium 129 L Potassium 4.0 Chloride 98 Carbon Dioxide 26 Anion Gap 5 BUN 17 Creatinine 1.01 Estim Creat Clear Calc Not Reportable Estimated GFR > 60 Glucose 116 H Lactic Acid Calcium 8.3 L Magnesium Total Bilirubin 0.8 AST 41 ALT 24 Alkaline Phosphatase 89 Total Creatine Kinase 217 H Troponin I Total Protein 6.2 L Albumin 3.4 L Urine Color Red H Urine Appearance Turbid H Urine pH 7.0 Ur Specific [place] 1.020 Urine Protein 3+ H Urine Glucose (UA) Negative Urine Ketones 2+ H Ur Blood (Man) 3+ H Urine Nitrate Negative Urine Bilirubin 1+ H Urine Urobilinogen 0.2 Leukocyte Esterase Rfl Negative Urine RBC 51-100 H Urine WBC 0-5 Ur Squamous Epith Cells None seen Urine Bacteria Trace Hyaline Casts 1-2 Influenza A (RT-PCR) Negative Influenza B (RT-PCR) Negative RSV (RT-PCR) Negative SARS-CoV-2 RNA (RT-PCR) Negative Blood Type Antibody Screen Crossmatch 06/27/25 06/28/25 06/28/25 23:30 00:25 01:43 WBC RBC Hgb 9.4 L Hct 29.1 L MCV MCH MCHC RDW Plt Count MPV Immature Gran % (Auto) Neut % (Auto) Lymph % (Auto) [place] % (Auto) Eos % (Auto) Baso % (Auto) Lymph # (Auto) [place] # (Auto) Eos # (Auto) Baso # (Auto) Abs Immat Gran (auto) Absolute Neuts (auto) Absolute Nucleated RBC Total Counted Neutrophils % (Manual) Band Neutrophils % Lymphocytes % (Manual) Monocytes % (Manual) Metamyelocytes % Nucleated RBC % Abs Neuts (Manual) Abs Lymphs (Manual) Abs Monocytes (Manual) Platelet Estimate Schistocytes Puncture Site Left radial ABG pH 7.513 H* ABG pCO2 26.1 L ABG pO2 54.5 L ABG PO2/FiO2 Ratio 1.95 ABG HCO3 20.5 L ABG O2 Saturation 91.8 L ABG O2 Content 13.2 L ABG Base Excess -1.5 A-a Gradient 114.3 Oxyhemoglobin 90.3 Total Hemoglobin 10.4 L O2 Delivery Device Nasal cannula O2 Liters/Min 2.0 FiO2 28 Sodium 129 L Potassium Chloride Carbon Dioxide Anion Gap BUN Creatinine Estim Creat Clear Calc Estimated GFR Glucose Lactic Acid 3.3 H Calcium Magnesium 1.6 Total Bilirubin AST ALT Alkaline Phosphatase Total Creatine Kinase Troponin I 0.449 H* Total Protein Albumin Urine Color Urine Appearance Urine pH Ur Specific [place] Urine Protein Urine Glucose (UA) Urine Ketones Ur Blood (Man) Urine Nitrate Urine Bilirubin Urine Urobilinogen Leukocyte Esterase Rfl Urine RBC Urine WBC Ur Squamous Epith Cells Urine Bacteria Hyaline Casts Influenza A (RT-PCR) Influenza B (RT-PCR) RSV (RT-PCR) SARS-CoV-2 RNA (RT-PCR) Blood Type Antibody Screen Crossmatch 06/28/25 06/28/25 06/28/25 01:44 04:34 07:51 WBC 30.7 H RBC 2.63 L Hgb 8.9 L 8.2 L Hct 26.9 L 25.0 L MCV 95.1 MCH 31.2 MCHC 32.8 RDW 15.0 H Plt Count 195 MPV 9.8 Immature Gran % (Auto) Not Reportable Neut % (Auto) Not Reportable Lymph % (Auto) Not Reportable [place] % (Auto) Not Reportable Eos % (Auto) Not Reportable Baso % (Auto) Not Reportable Lymph # (Auto) Not Reportable [place] # (Auto) Not Reportable Eos # (Auto) Not Reportable Baso # (Auto) Not Reportable Abs Immat Gran (auto) Not Reportable Absolute Neuts (auto) Not Reportable Absolute Nucleated RBC Not Reportable Total Counted 100 Neutrophils % (Manual) 60 Band Neutrophils % 25 H Lymphocytes % (Manual) 5 L Monocytes % (Manual) 9 Metamyelocytes % 1 Nucleated RBC % Not Reportable Abs Neuts (Manual) 26.09 H Abs Lymphs (Manual) 1.53 Abs Monocytes (Manual) 2.76 H Platelet Estimate Adequate Schistocytes None seen Puncture Site ABG pH ABG pCO2 ABG pO2 ABG PO2/FiO2 Ratio ABG HCO3 ABG O2 Saturation ABG O2 Content ABG Base Excess A-a Gradient Oxyhemoglobin Total Hemoglobin O2 Delivery Device O2 Liters/Min FiO2 Sodium 129 L Potassium 3.8 Chloride 103 Carbon Dioxide 22 Anion Gap 4 BUN 20 Creatinine 1.39 H Estim Creat Clear Calc 32 Estimated GFR 49 L Glucose 122 H Lactic Acid 3.1 H 2.6 H Calcium 7.5 L Magnesium Total Bilirubin 0.6 AST 53 ALT 24 Alkaline Phosphatase 95 Total Creatine Kinase Troponin I 0.651 H* D 0.837 H* D Total Protein 5.0 L Albumin 2.5 L Urine Color Urine Appearance Urine pH Ur Specific [place] Urine Protein Urine Glucose (UA) Urine Ketones Ur Blood (Man) Urine Nitrate Urine Bilirubin Urine Urobilinogen Leukocyte Esterase Rfl Urine RBC Urine WBC Ur Squamous Epith Cells Urine Bacteria Hyaline Casts Influenza A (RT-PCR) Influenza B (RT-PCR) RSV (RT-PCR) SARS-CoV-2 RNA (RT-PCR) Blood Type Antibody Screen Crossmatch 06/28/25 10:05 WBC RBC Hgb Hct MCV MCH MCHC RDW Plt Count MPV Immature Gran % (Auto) Neut % (Auto) Lymph % (Auto) [place] % (Auto) Eos % (Auto) Baso % (Auto) Lymph # (Auto) [place] # (Auto) Eos # (Auto) Baso # (Auto) Abs Immat Gran (auto) Absolute Neuts (auto) Absolute Nucleated RBC Total Counted Neutrophils % (Manual) Band Neutrophils % Lymphocytes % (Manual) Monocytes % (Manual) Metamyelocytes % Nucleated RBC % Abs Neuts (Manual) Abs Lymphs (Manual) Abs Monocytes (Manual) Platelet Estimate Schistocytes Puncture Site ABG pH ABG pCO2 ABG pO2 ABG PO2/FiO2 Ratio ABG HCO3 ABG O2 Saturation ABG O2 Content ABG Base Excess A-a Gradient Oxyhemoglobin Total Hemoglobin O2 Delivery Device O2 Liters/Min FiO2 Sodium Potassium Chloride Carbon Dioxide Anion Gap BUN Creatinine Estim Creat Clear Calc Estimated GFR Glucose Lactic Acid Calcium Magnesium Total Bilirubin AST ALT Alkaline Phosphatase Total Creatine Kinase Troponin I Total Protein Albumin Urine Color Urine Appearance Urine pH Ur Specific [place] Urine Protein Urine Glucose (UA) Urine Ketones Ur Blood (Man) Urine Nitrate Urine Bilirubin Urine Urobilinogen Leukocyte Esterase Rfl Urine RBC Urine WBC Ur Squamous Epith Cells Urine Bacteria Hyaline Casts Influenza A (RT-PCR) Influenza B (RT-PCR) RSV (RT-PCR) SARS-CoV-2 RNA (RT-PCR) Blood Type A Positive Antibody Screen Negative Crossmatch See Detail Quality VTE Prophylaxis VTE prophylaxis: mechanical ordered Hospitalist MIPS Advance Care Plan I have confirmed that the patient's Advanced Care Plan is present, code status is documented, or surrogate decision maker is listed in patient medical record.: Yes
[2025-06-28] MEDS: LIDOCAINE 1% PF INJ 5 ML VIAL INFILTRATE (12:10)
[2025-06-28] MEDS: NOREPINEPHRINE 8 MG/D5W 250 ML 8 MG/250 ML BAG 18.75 MG IV CONT (13:00)
[2025-06-28] MEDS: MAGNESIUM SULF 2 GM/WATER 50ML 2 GM/50 ML BAG IVPB (13:21)
[2025-06-28] MEDS: CALCIUM GLUC 2,000 MG/NS 100ML 2,000 MG/100 ML BAG 100 MG IVPB ×2 (13:21→17:41)
[2025-06-28] MEDS: POTASSIUM BICARBONATE 25 MEQ TABEF PO (13:22)
[2025-06-28] MEDS: ALBUMIN HUMAN 25% 25 GM/100 ML 100 ML IVPB ×3 (13:22→23:03)
--- NOTE | 2025-06-28 13:28 | PC.NURSE ---
Pt transferred to room ICU5 at 1142. Report given to LEWIS Blunt.
[2025-06-28 13:41] LABS: Procalcitonin > 100.0 ng/mL
[2025-06-28] MEDS: ONDANSETRON INJ 4 MG/2 ML VIAL IV PUSH (13:49)
[2025-06-28 14:51] LABS: Hematocrit 28.0 % (42.0-52.0); Hemoglobin 9.2 g/dL (14.0-18.0)
[2025-06-28] MEDS: CENTRAL LINE FLUSH 10 ML IV PUSH ×2 (15:25→20:56)
[2025-06-28 15:38] LABS: Troponin I 0.947 ng/mL (0.000-0.034)
[2025-06-28 17:22] LABS: Anion Gap 9 mmol/L (4-12); Blood Urea Nitrogen 24 mg/dL (9-20); Calcium 8.1 mg/dL (8.4-10.2); Carbon Dioxide 19 mmol/L (22-30); Chloride 102 mmol/L (98-107); Estimated CRCL calculation 21 ml/min; Estimated Glomerular Filt Rate 33; Glucose 129 mg/dL (65-110); Potassium 4.3 mmol/L (3.4-5.0); Sodium 130 mmol/L (137-145)
[2025-06-28] MEDS: SODIUM BICARBONATE 8.4% 50 MEQ/50 ML SYRINGE 100 MEQ IV PUSH (17:40)
[2025-06-28] MEDS: cefTRIAXone 1 GM in SODIUM CHLORIDE 0.9% IV 50 ML 100 ML IVPB (20:56)
[2025-06-28] MEDS: LATANOPROST 0.005% OP SOLN 2.5 ML BTL 1 DROP EACH EYE (20:56)
--- NOTE | 2025-06-28 21:13 | ECG_ITS ---
Test Date: 2025-06-28 21:16:19 Measurements Intervals [place] Rate: 172 P: 0 NE: 0 QRS: -9 QRSD: 67 T: 23 QT: 254 QTc: 431 Interpretive Statements ATRIAL FIBRILLATION WITH RAPID VENTRICULAR RESPONSE LOW QRS VOLTAGE IN EXTREMITY LEADS [QRS DEFLECTION < 0.5 mV IN LIMB LEADS] POSSIBLE INFERIOR MYOCARDIAL INFARCTION [30 ms Q WAVE IN II/aVF], PROBABLY OLD ABNORMAL RHYTHM ECG Compared to ECG 06/27/2025 23:32:28 Sinus tachycardia no longer present Myocardial infarct finding still present Electronically Signed On 06-29-2025 08:54:35 HOSPITAL MEDICAL ASSISTANT by Vickey Fortune M.D.
[2025-06-28] MEDS: dilTIAZem 100 MG/100 ML 100 MG/100 ML BAG IV CONT (21:20)
[2025-06-28 22:12] LABS: Hematocrit 26.7 % (42.0-52.0); Hemoglobin 8.8 g/dL (14.0-18.0); Mean Corpuscular HGB Conc 33.0 g/dl (32-36); Mean Corpuscular Hemoglobin 30.2 pg (26-34); Mean Corpuscular Volume 91.8 fl (80-100); Platelet Count Result 154 k/mm3 (150-375); Red Blood Count 2.91 M/mm3 (4.6-6.20); White Blood Count 33.1 K/mm3 (4.5-10.0)
[2025-06-29] VITALS (31 sets, daily range): BP systolic 87–128; BP diastolic 58–100; PULSE 110–143; RESP 15–25; TEMP 36.5–37.2; O2SAT 93–100
[2025-06-29] MEDS: dilTIAZem 100 MG/100 ML 100 MG/100 ML BAG 15 MG IV CONT ×4 (02:57→23:41)
[2025-06-29] MEDS: LACTATED RINGERS 1,000 ML 50 ML IV CONT (02:58)
[2025-06-29] MEDS: CENTRAL LINE FLUSH 10 ML IV PUSH ×3 (05:34→20:29)
[2025-06-29] MEDS: ALBUMIN HUMAN 25% 25 GM/100 ML 100 ML IVPB (05:34)
[2025-06-29 05:45] LABS: Hematocrit 25.8 % (42.0-52.0); Hemoglobin 8.7 g/dL (14.0-18.0); Mean Corpuscular HGB Conc 33.7 g/dl (32-36); Mean Corpuscular Hemoglobin 31.0 pg (26-34); Mean Corpuscular Volume 91.8 fl (80-100); Platelet Count Result 139 k/mm3 (150-375); Red Blood Count 2.81 M/mm3 (4.6-6.20); White Blood Count 33.8 K/mm3 (4.5-10.0)
[2025-06-29 06:04] LABS: Alanine Aminotransferase 33 U/L (6-50); Albumin Level 3.2 g/dL (3.5-5.1); Alkaline Phosphatase 64 U/L (38-126); Anion Gap 9 mmol/L (4-12); Aspartate Amino Transferase 61 U/L (17-59); Bilirubin,Total 0.9 mg/dL (0.2-1.3); Blood Urea Nitrogen 29 mg/dL (9-20); Calcium 8.1 mg/dL (8.4-10.2); Carbon Dioxide 23 mmol/L (22-30); Chloride 101 mmol/L (98-107); Estimated CRCL calculation 20 ml/min; Estimated Glomerular Filt Rate 32; Glucose 106 mg/dL (65-110); Magnesium 1.9 mg/dL (1.6-2.3); Potassium 4.6 mmol/L (3.4-5.0); Sodium 133 mmol/L (137-145); Total Protein 5.5 g/dL (6.3-8.2)
--- NOTE | 2025-06-29 07:22 | WPDUROPN2 ---
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 Continue CBI for now Subjective Subjective Date/Time Seen: 06/29/25 07:22 Interval history: Urine clear on FAST CBI / no clots on irrigation Review of Systems Review of Systems: All systems reviewed & are unremarkable except as noted in HPI and below Exam Const: General: no acute distress Resp: Effort & Inspection: normal respiratory effort GI: Inspection: non-distended GI Palp: No abdominal tenderness and No Guarding due to palpation present (GI) Auscultation: normal bowel sounds Urinary Catheter: Urinary Catheter: patent and draining and urine clear Objective Data Vital Signs Vital Signs: Vital Signs - 24 hr 06/28/25 08:00 06/28/25 08:00 06/28/25 08:00 Temperature 98.2 F Pulse Rate 105 H 99 Respiratory Rate 21 H Blood Pressure 72/41 L Pulse Oximetry 100 96 Oxygen Delivery Oxygen Flow Rate 2 06/28/25 09:47 06/28/25 11:51 06/28/25 12:00 Temperature 100.5 F H 98.2 F Pulse Rate 102 H 85 Respiratory Rate 23 H 23 H Blood Pressure 85/47 L 69/49 L 78/46 L Pulse Oximetry 98 100 Oxygen Delivery Oxygen Flow Rate 06/28/25 12:00 06/28/25 12:00 06/28/25 12:06 Temperature 98.7 F Pulse Rate 102 H 102 H 106 H Respiratory Rate 25 H 23 H Blood Pressure 84/59 L Pulse Oximetry 99 100 Oxygen Delivery Nasal Cannula Oxygen Flow Rate 2 06/28/25 13:00 06/28/25 13:00 06/28/25 13:56 Temperature 98.3 F 100.5 F H Pulse Rate 105 H 106 H 106 H Respiratory Rate 23 H 23 H Blood Pressure 84/59 L 84/59 L 84/59 L Pulse Oximetry 100 100 Oxygen Delivery Oxygen Flow Rate 06/28/25 14:00 06/28/25 14:00 06/28/25 14:00 Temperature 98.7 F Pulse Rate 124 H 124 H 124 H Respiratory Rate 24 H Blood Pressure 109/63 109/63 Pulse Oximetry 100 Oxygen Delivery Oxygen Flow Rate 06/28/25 14:15 06/28/25 14:28 06/28/25 14:30 Temperature Pulse Rate 122 H 119 H 120 H Respiratory Rate 32 H Blood Pressure 111/64 113/69 Pulse Oximetry 99 Oxygen Delivery Nasal Cannula Oxygen Flow Rate 2 06/28/25 15:00 06/28/25 15:00 06/28/25 15:15 Temperature 98.7 F Pulse Rate 119 H 122 H 122 H Respiratory Rate 24 H Blood Pressure 107/69 107/63 110/71 Pulse Oximetry 100 Oxygen Delivery Oxygen Flow Rate 06/28/25 15:30 06/28/25 16:00 06/28/25 16:00 Temperature Pulse Rate 122 H 122 H 122 H Respiratory Rate 24 H Blood Pressure 110/73 Pulse Oximetry 100 Oxygen Delivery Nasal Cannula Oxygen Flow Rate 2 06/28/25 16:00 06/28/25 16:00 06/28/25 16:15 Temperature 99 F Pulse Rate 115 H 115 H 124 H Respiratory Rate 24 H Blood Pressure 106/74 96/66 L 106/74 Pulse Oximetry 100 Oxygen Delivery Oxygen Flow Rate 06/28/25 16:30 06/28/25 17:00 06/28/25 17:00 Temperature 99 F Pulse Rate 115 H 115 H 126 H Respiratory Rate 23 H Blood Pressure 111/70 90/58 L 95/68 L Pulse Oximetry 100 Oxygen Delivery Oxygen Flow Rate 06/28/25 17:30 06/28/25 18:00 06/28/25 18:00 Temperature 99.2 F Pulse Rate 120 H 118 H 115 H Respiratory Rate 24 H Blood Pressure 90/58 L 111/66 Pulse Oximetry 100 Oxygen Delivery Oxygen Flow Rate 06/28/25 18:00 06/28/25 19:00 06/28/25 20:00 Temperature 99 F 98.4 F Pulse Rate 115 H 117 H 125 H Respiratory Rate 24 H 24 H Blood Pressure 111/70 102/58 L 99/61 L Pulse Oximetry 99 97 Oxygen Delivery Oxygen Flow Rate 06/28/25 20:00 06/28/25 20:00 06/28/25 20:45 Temperature Pulse Rate 120 H 127 H 163 H Respiratory Rate 26 H Blood Pressure 99/61 L Pulse Oximetry 98 Oxygen Delivery Nasal Cannula Oxygen Flow Rate 3 06/28/25 20:45 06/28/25 20:53 06/28/25 20:54 Temperature Pulse Rate 127 H 121 H 121 H Respiratory Rate 17 Blood Pressure 122/76 122/76 Pulse Oximetry 97 98 Oxygen Delivery Nasal Cannula Oxygen Flow Rate 06/28/25 21:00 06/28/25 21:10 06/28/25 21:20 Temperature Pulse Rate 180 H 125 H 163 H Respiratory Rate 26 H 16 Blood Pressure 103/64 108/72 Pulse Oximetry 98 97 Oxygen Delivery Nasal Cannula Oxygen Flow Rate 2 06/28/25 21:30 06/28/25 21:39 06/28/25 22:00 Temperature Pulse Rate 135 H 155 H 146 H Respiratory Rate 24 H Blood Pressure 92/60 L 90/66 L Pulse Oximetry 98 Oxygen Delivery Oxygen Flow Rate 06/28/25 22:00 06/28/25 22:00 06/28/25 22:00 Temperature 98.1 F Pulse Rate 151 H 155 H 160 H Respiratory Rate 21 H Blood Pressure 82/58 L 82/58 L 82/58 L Pulse Oximetry 96 Oxygen Delivery Oxygen Flow Rate 06/28/25 22:15 06/28/25 22:30 06/28/25 23:00 Temperature Pulse Rate 149 H 141 H 134 H Respiratory Rate 21 H 21 H 22 H Blood Pressure 91/65 L 100/68 98/69 L Pulse Oximetry 96 95 96 Oxygen Delivery Oxygen Flow Rate 06/29/25 00:00 06/29/25 00:00 06/29/25 00:00 Temperature 98.4 F Pulse Rate 123 H 123 H 141 H Respiratory Rate 18 18 Blood Pressure 99/58 L Pulse Oximetry 97 97 Oxygen Delivery Nasal Cannula Oxygen Flow Rate 3 06/29/25 00:00 06/29/25 00:00 06/29/25 01:00 Temperature Pulse Rate 141 H 141 H 127 H Respiratory Rate 19 Blood Pressure 99/58 L 99/58 L 96/67 L Pulse Oximetry 97 Oxygen Delivery Oxygen Flow Rate 06/29/25 02:00 06/29/25 02:00 06/29/25 02:00 Temperature Pulse Rate 126 H 126 H 126 H Respiratory Rate 20 Blood Pressure 98/63 L 98/63 L Pulse Oximetry 99 Oxygen Delivery Oxygen Flow Rate 06/29/25 02:00 06/29/25 02:57 06/29/25 02:57 Temperature Pulse Rate 126 H 130 H 133 H Respiratory Rate Blood Pressure 98/63 L 96/67 L 96/67 L Pulse Oximetry Oxygen Delivery Oxygen Flow Rate 06/29/25 03:00 06/29/25 03:00 06/29/25 03:19 Temperature Pulse Rate 143 H 134 H 125 H Respiratory Rate 22 H 17 Blood Pressure 87/66 L 87/66 L 97/70 L Pulse Oximetry 97 99 Oxygen Delivery Oxygen Flow Rate 06/29/25 04:00 06/29/25 04:00 06/29/25 04:00 Temperature 98 F Pulse Rate 125 H 127 H 125 H Respiratory Rate 17 22 H Blood Pressure 108/64 108/64 Pulse Oximetry 99 98 Oxygen Delivery Nasal Cannula Oxygen Flow Rate 2 06/29/25 04:00 06/29/25 04:00 06/29/25 05:00 Temperature Pulse Rate 125 H 133 H 137 H Respiratory Rate 17 Blood Pressure 108/64 91/66 L Pulse Oximetry 99 Oxygen Delivery Oxygen Flow Rate 06/29/25 06:00 06/29/25 06:00 06/29/25 06:00 Temperature 98.1 F Pulse Rate 121 H 121 H 121 H Respiratory Rate 19 Blood Pressure 109/68 109/58 L Pulse Oximetry 98 Oxygen Delivery Oxygen Flow Rate 06/29/25 06:00 06/29/25 07:00 Temperature Pulse Rate 121 H 142 H Respiratory Rate 22 H Blood Pressure 109/68 96/68 L Pulse Oximetry 98 Oxygen Delivery Oxygen Flow Rate Intake/Output Intake/Output: Intake & Output 06/26/25 06/27/25 06/28/25 06/29/25 23:59 23:59 23:59 23:59 Intake Total 1050 58811.3 97214.1 Output Total 9300 77843 Balance 1050 1227.3 -369.9 Meds/Results Medications: Active Medications Generic Name Dose Route Start Last Admin Trade Name Freq PRN Reason Stop Dose Admin Acetaminophen 650 mg 06/28/25 01:26 Acetaminophen 650 Mg Suppository RECTAL Q6H PRN Mild Pain (1-3) or Fever Ceftriaxone Sodium 1 gm/ 50 mls @ 100 mls/hr 06/28/25 22:00 06/28/25 21:26 Sodium Chloride IVPB Infused Q24H EUGENIO Infusion Lactated Ringer's 1,000 mls @ 50 mls/hr 06/28/25 10:30 06/29/25 02:58 Lr - Lactated Ringers Iv IV CONT 50 mls/hr .Q20H EUGENIO Administration Albumin Human 100 mls @ 60 mls/hr 06/28/25 12:00 06/29/25 05:34 Albutein IVPB 06/29/25 07:39 60 mls/hr Q6HR EUGENIO Administration Norepinephrine Bitartrate 8 mg in 250 mls @ 9.375 mls/hr 06/28/25 13:15 06/29/25 06:00 Levophed 8 Mg/D5w 250 Ml IV CONT 5 mcg/min .Q24H EUGENIO 9.38 mls/hr Protocol Titration 5 MCG/MIN Diltiazem HCl 100 mg in 100 mls @ 15 mls/hr 06/28/25 21:10 06/29/25 06:00 Cardizem 100 Mg/100 Ml IV CONT 15 mg/hr .Q6H40M EUGENIO 15 mls/hr Protocol Titration 15 MG/HR Latanoprost 1 drop 06/28/25 21:00 06/28/25 20:56 Latanoprost 0.005% Op Soln 2.5 Ml Btl EACH EYE 1 drop HS EUGENIO Administration Ondansetron HCl 4 mg 06/28/25 13:33 06/28/25 13:49 Ondansetron Inj 4 Mg/2 Ml Vial IV PUSH 4 mg Q4H PRN Administration Nausea And Vomiting Perflutren Lipid Microsphere 0 ml 06/28/25 03:25 Perflutren Lipid Microspheres 1.5 Ml Vial Diluted To 10 Ml Total Volume IV PUSH 07/01/25 03:25 ONCE PRN adequate visualization Protocol Sodium Chloride 10 ml 06/28/25 14:00 06/29/25 05:34 Central Line Flush IV PUSH 10 ml Q8HR EUGENIO Administration Sodium Chloride 10 ml 06/28/25 13:03 Central Line Flush IV PUSH PRN PRN with TPN bag changes Sodium Chloride 20 ml 06/28/25 13:03 Central Line Flush IV PUSH PRN PRN after blood draws Radiology Results: ITS Impressions Head CT 06/27/25 21:22 IMPRESSION: No acute intracranial hemorrhage or extra axial fluid collections. All CT scans at this facility are performed using low dose modulation techniques as appropriate to perform exam including the following: automated exposure control; use of iterative reconstruction technique; adjustment of the mA and/or kV according to patient size (this includes techniques or standardized protocols for targeted exams where dose is matched to indication/reason for exam). Chest/Abdomen/Pelvis CTA 06/27/25 22:00 IMPRESSION: 1. Hyperdense soft tissue of the bladder lumen, likely blood clot. Limon catheter present in the bladder lumen. 2: No evidence for aortic aneurysm or dissection. 3: Stenosis of the celiac axis, SMA and renal arteries. Carotid Doppler Study 06/28/25 20:17 IMPRESSION: 1. Less than 50% stenosis in the right internal carotid artery by sonographic criteria. 2. Less than 50% stenosis in the left internal carotid artery by sonographic criteria. Labs Labs: Laboratory Results - last 24 hr 06/28/25 06/28/25 06/28/25 07:51 10:05 14:39 WBC 30.7 H RBC 2.63 L Hgb 8.2 L 9.2 L Hct 25.0 L 28.0 L MCV 95.1 MCH 31.2 MCHC 32.8 RDW 15.0 H Plt Count 195 MPV 9.8 Immature Gran % (Auto) Not Reportable Neut % (Auto) Not Reportable Lymph % (Auto) Not Reportable [place] % (Auto) Not Reportable Eos % (Auto) Not Reportable Baso % (Auto) Not Reportable Lymph # (Auto) Not Reportable [place] # (Auto) Not Reportable Eos # (Auto) Not Reportable Baso # (Auto) Not Reportable Abs Immat Gran (auto) Not Reportable Absolute Neuts (auto) Not Reportable Absolute Nucleated RBC Not Reportable Total Counted 100 Neutrophils % (Manual) 60 Band Neutrophils % 25 H Lymphocytes % (Manual) 5 L Monocytes % (Manual) 9 Metamyelocytes % 1 Nucleated RBC % Not Reportable Abs Neuts (Manual) 26.09 H Abs Lymphs (Manual) 1.53 Abs Monocytes (Manual) 2.76 H Platelet Estimate Adequate Schistocytes None seen Sodium Potassium Chloride Carbon Dioxide Anion Gap BUN Creatinine Estim Creat Clear Calc Estimated GFR Glucose Lactic Acid 4.3 H* Calcium Magnesium Total Bilirubin AST ALT Alkaline Phosphatase Troponin I 0.837 H* D 0.947 H* Total Protein Albumin Procalcitonin > 100.0 Blood Type A Positive Antibody Screen Negative Crossmatch See Detail 06/28/25 06/28/25 06/29/25 17:03 21:59 05:33 WBC 33.1 H 33.8 H RBC 2.91 L 2.81 L Hgb 8.8 L 8.7 L Hct 26.7 L 25.8 L MCV 91.8 91.8 MCH 30.2 31.0 MCHC 33.0 33.7 RDW 16.0 H 16.1 H Plt Count 154 139 L MPV 9.0 9.3 Immature Gran % (Auto) Neut % (Auto) Lymph % (Auto) [place] % (Auto) Eos % (Auto) Baso % (Auto) Lymph # (Auto) [place] # (Auto) Eos # (Auto) Baso # (Auto) Abs Immat Gran (auto) Absolute Neuts (auto) Absolute Nucleated RBC Total Counted Neutrophils % (Manual) Band Neutrophils % Lymphocytes % (Manual) Monocytes % (Manual) Metamyelocytes % Nucleated RBC % Abs Neuts (Manual) Abs Lymphs (Manual) Abs Monocytes (Manual) Platelet Estimate Schistocytes Sodium 130 L 133 L Potassium 4.3 4.6 Chloride 102 101 Carbon Dioxide 19 L 23 Anion Gap 9 9 BUN 24 H 29 H Creatinine 1.93 H 2.02 H Estim Creat Clear Calc 21 20 Estimated GFR 33 L 32 L Glucose 129 H 106 Lactic Acid Calcium 8.1 L 8.1 L Magnesium 1.9 Total Bilirubin 0.9 AST 61 H ALT 33 Alkaline Phosphatase 64 Troponin I Total Protein 5.5 L Albumin 3.2 L Procalcitonin Blood Type Antibody Screen Crossmatch
--- NOTE | 2025-06-29 07:43 | PCPTNOTE ---
Attempted PT evaluation, pt on vasopressors and per nursing it is not recommended pt participate in OOB activities. Will follow.
--- NOTE | 2025-06-29 07:57 | PCOTNOTE ---
Attempted OT evaluation, patient is on vasopressors and per nursing it is not recommended pt participate in OOB activities. Will follow
[2025-06-29] MEDS: CALCIUM GLUC 2,000 MG/NS 100ML 2,000 MG/100 ML BAG 100 MG IVPB (08:17)
[2025-06-29] MEDS: MAGNESIUM SULF 2 GM/WATER 50ML 2 GM/50 ML BAG IVPB (08:17)
[2025-06-29] MEDS: MEROPENEM 1 GM in SODIUM CHLORIDE 0.9% IV 100 ML 200 ML IVPB ×2 (08:45→20:22)
[2025-06-29] MEDS: NOREPINEPHRINE 8 MG/D5W 250 ML 8 MG/250 ML BAG 9.38 MG IV CONT (09:19)
--- NOTE | 2025-06-29 10:51 | WPDINTPN ---
Progress Note: A&P Assessment and Plan (1) Hypotension: Code(s): I95.9 - Hypotension, unspecified Status: Acute Assessment and Plan: Hypotension likely secondary to acute blood loss anemia and sepsis from UTI Elevate lactic acid and procalcitonin level Patient was given fluids yesterday and 1 unit PRBC t. He has been on maintenance IV fluids since yesterday. Patient also received LP Will hold further fluids due to concern of volume overload. Chest x-ray done this morning shows mild CHF. Continue vasopressor Treatment of infection as below (2) Sepsis: Code(s): A41.9 - Sepsis, unspecified organism Status: Acute Assessment and Plan: Sepsis likely secondary to UTI. Check procalcitonin and lactic acid level Hold further IV fluid IV Rocephin changed to IV meropenem Afebrile Discontinue doxycycline and vancomycin (3) Paroxysmal A-fib: Code(s): I48.0 - Paroxysmal atrial fibrillation Status: Acute Assessment and Plan: Not on anticoagulation due to persistent hematuria. Patient now in AFib with RVR. He is allergic to iodine. I have him on Cardizem infusion at this time. Monitor (4) UTI (urinary tract infection): Code(s): N39.0 - Urinary tract infection, site not specified Status: Acute Assessment and Plan: See above (5) Hematuria: Code(s): R31.9 - Hematuria, unspecified Status: Acute Assessment and Plan: Persistent hematuria 4 weeks. Not on anticoagulation. Urology change the Limon catheter and start CBI Management per urology May need to go for cystoscopy and evacuation. (6) Acute blood loss anemia: Code(s): D62 - Acute posthemorrhagic anemia Status: Acute Assessment and Plan: Patient has had persistent hematuria for last few weeks. His hemoglobin has been gradually trending down. It was at least 10 yesterday and is a 0.2 today 06/28 1 unit PRBC transfused Monitor hemoglobin closely Transfuse additionally if needed (7) MOOKIE (acute kidney injury): Code(s): N17.9 - Acute kidney failure, unspecified Status: Acute Assessment and Plan: MOOKIE likely secondary to obstruction, hypotension and hypovolemia Hold further IV fluid due to concern of volume overload Monitor urine output electrolytes and creatinine CT scan does not show any stone or hydronephrosis. Consult nephrology (8) Electrolyte abnormality: Code(s): E87.8 - Other disorders of electrolyte and fluid balance, not elsewhere classified Status: Acute Assessment and Plan: Replace calcium magnesium Plan DVT prophylaxis -SCD Nutrition -heart healthy diet Code Status -patient wishes to be DNR DNI. This conversation was done in presence of patient's son who is in agreement with patient's wishes and request Total Critical Care Time - 30 minutes Due to a high probability of clinically significant, life threatening deterioration, the patient required my highest level of preparedness to intervene emergently and I personally spent this critical care time directly and personally managing the patient. This critical care time included obtaining a history; examining the patient; pulse oximetry; ordering and review of studies; arranging urgent treatment with development of a management plan; evaluation of patient's response to treatment; frequent reassessment; and discussions with other providers. It was exclusive of separately billable procedures and treating other patients and teaching time. Please see Assessment and Plan section and the rest of the note for further information on patient assessment and treatment Subjective Date/time seen: 06/29/25 Overnight events reviewed. Patient continues to be on CBI. Overnight patient went to ib RVR started on Cardizem infusion for rate control. He continues to be on Levophed for blood pressure support. Overall he states he feels the better and denies any specific complaints. He does have dry cough. He denies any pain shortness a breath nausea vomiting. He states his appetite is poor and he does not feel like eating. All other systems were reviewed and were negative. Review of Systems Review of Systems: All systems reviewed & are unremarkable except as noted in HPI and below (HPI) Exam Narrative: General: Pt is alert awake and in NAD Lungs/Chest: Trachea central few crackles at base, decreased breath sounds at bases. Slight use of accessory muscles during breathing Cardiac: RRR. Normal S1 S2. No murmurs Circulation: Bilateral dorsalis pedis pulses are palpable Abdomen: Normal bowel sounds.. Soft. NT. ND. Extremities: No clubbing, cyanosis or edema. Warm : Limon in place with blood-tinged urine with CBI Neurologic: Follows commands. Moves all 4 extremities PERRL AO x3 slight hearing impaired Skin: No Rash Objective Data Vital Signs Vital Signs: Vital Signs - 24 hr 06/28/25 11:51 06/28/25 12:00 06/28/25 12:00 Temperature 38.1 C H 36.8 C Pulse Rate 102 H 85 102 H Respiratory Rate 23 H 23 H 25 H Blood Pressure 69/49 L 78/46 L Pulse Oximetry 98 100 99 Oxygen Delivery Nasal Cannula Oxygen Flow Rate 2 06/28/25 12:00 06/28/25 12:06 06/28/25 13:00 Temperature 37.1 C Pulse Rate 102 H 106 H 105 H Respiratory Rate 23 H Blood Pressure 84/59 L 84/59 L Pulse Oximetry 100 Oxygen Delivery Oxygen Flow Rate 06/28/25 13:00 06/28/25 13:56 06/28/25 14:00 Temperature 36.8 C 38.1 C H Pulse Rate 106 H 106 H 124 H Respiratory Rate 23 H 23 H Blood Pressure 84/59 L 84/59 L Pulse Oximetry 100 100 Oxygen Delivery Oxygen Flow Rate 06/28/25 14:00 06/28/25 14:00 06/28/25 14:15 Temperature 37.1 C Pulse Rate 124 H 124 H 122 H Respiratory Rate 24 H Blood Pressure 109/63 109/63 111/64 Pulse Oximetry 100 Oxygen Delivery Oxygen Flow Rate 06/28/25 14:28 06/28/25 14:30 06/28/25 15:00 Temperature Pulse Rate 119 H 120 H 119 H Respiratory Rate 32 H Blood Pressure 113/69 107/69 Pulse Oximetry 99 Oxygen Delivery Nasal Cannula Oxygen Flow Rate 2 06/28/25 15:00 06/28/25 15:15 06/28/25 15:30 Temperature 37.1 C Pulse Rate 122 H 122 H 122 H Respiratory Rate 24 H Blood Pressure 107/63 110/71 110/73 Pulse Oximetry 100 Oxygen Delivery Oxygen Flow Rate 06/28/25 16:00 06/28/25 16:00 06/28/25 16:00 Temperature 37.2 C Pulse Rate 122 H 122 H 115 H Respiratory Rate 24 H 24 H Blood Pressure 106/74 Pulse Oximetry 100 100 Oxygen Delivery Nasal Cannula Oxygen Flow Rate 2 06/28/25 16:00 06/28/25 16:15 06/28/25 16:30 Temperature Pulse Rate 115 H 124 H 115 H Respiratory Rate Blood Pressure 96/66 L 106/74 111/70 Pulse Oximetry Oxygen Delivery Oxygen Flow Rate 06/28/25 17:00 06/28/25 17:00 06/28/25 17:30 Temperature 37.2 C Pulse Rate 115 H 126 H 120 H Respiratory Rate 23 H Blood Pressure 90/58 L 95/68 L 90/58 L Pulse Oximetry 100 Oxygen Delivery Oxygen Flow Rate 06/28/25 18:00 06/28/25 18:00 06/28/25 18:00 Temperature 37.3 C Pulse Rate 118 H 115 H 115 H Respiratory Rate 24 H Blood Pressure 111/66 111/70 Pulse Oximetry 100 Oxygen Delivery Oxygen Flow Rate 06/28/25 19:00 06/28/25 20:00 06/28/25 20:00 Temperature 37.2 C 36.9 C Pulse Rate 117 H 125 H 120 H Respiratory Rate 24 H 24 H Blood Pressure 102/58 L 99/61 L 99/61 L Pulse Oximetry 99 97 Oxygen Delivery Oxygen Flow Rate 06/28/25 20:00 06/28/25 20:45 06/28/25 20:45 Temperature Pulse Rate 127 H 163 H 127 H Respiratory Rate 26 H Blood Pressure Pulse Oximetry 98 97 Oxygen Delivery Nasal Cannula Nasal Cannula Oxygen Flow Rate 3 06/28/25 20:53 06/28/25 20:54 06/28/25 21:00 Temperature Pulse Rate 121 H 121 H 180 H Respiratory Rate 17 26 H Blood Pressure 122/76 122/76 103/64 Pulse Oximetry 98 98 Oxygen Delivery Oxygen Flow Rate 06/28/25 21:10 06/28/25 21:20 06/28/25 21:30 Temperature Pulse Rate 125 H 163 H 135 H Respiratory Rate 16 24 H Blood Pressure 108/72 92/60 L Pulse Oximetry 97 98 Oxygen Delivery Nasal Cannula Oxygen Flow Rate 2 06/28/25 21:39 06/28/25 22:00 06/28/25 22:00 Temperature 36.7 C Pulse Rate 155 H 146 H 151 H Respiratory Rate 21 H Blood Pressure 90/66 L 82/58 L Pulse Oximetry 96 Oxygen Delivery Oxygen Flow Rate 06/28/25 22:00 06/28/25 22:00 06/28/25 22:15 Temperature Pulse Rate 155 H 160 H 149 H Respiratory Rate 21 H Blood Pressure 82/58 L 82/58 L 91/65 L Pulse Oximetry 96 Oxygen Delivery Oxygen Flow Rate 06/28/25 22:30 06/28/25 23:00 06/29/25 00:00 Temperature 36.9 C Pulse Rate 141 H 134 H 123 H Respiratory Rate 21 H 22 H 18 Blood Pressure 100/68 98/69 L 99/58 L Pulse Oximetry 95 96 97 Oxygen Delivery Oxygen Flow Rate 06/29/25 00:00 06/29/25 00:00 06/29/25 00:00 Temperature Pulse Rate 123 H 141 H 141 H Respiratory Rate 18 Blood Pressure 99/58 L Pulse Oximetry 97 Oxygen Delivery Nasal Cannula Oxygen Flow Rate 3 06/29/25 00:00 06/29/25 01:00 06/29/25 02:00 Temperature Pulse Rate 141 H 127 H 126 H Respiratory Rate 19 Blood Pressure 99/58 L 96/67 L 98/63 L Pulse Oximetry 97 Oxygen Delivery Oxygen Flow Rate 06/29/25 02:00 06/29/25 02:00 06/29/25 02:00 Temperature Pulse Rate 126 H 126 H 126 H Respiratory Rate 20 Blood Pressure 98/63 L 98/63 L Pulse Oximetry 99 Oxygen Delivery Oxygen Flow Rate 06/29/25 02:57 06/29/25 02:57 06/29/25 03:00 Temperature Pulse Rate 130 H 133 H 143 H Respiratory Rate 22 H Blood Pressure 96/67 L 96/67 L 87/66 L Pulse Oximetry 97 Oxygen Delivery Oxygen Flow Rate 06/29/25 03:00 06/29/25 03:19 06/29/25 04:00 Temperature Pulse Rate 134 H 125 H 125 H Respiratory Rate 17 17 Blood Pressure 87/66 L 97/70 L Pulse Oximetry 99 99 Oxygen Delivery Nasal Cannula Oxygen Flow Rate 2 06/29/25 04:00 06/29/25 04:00 06/29/25 04:00 Temperature 36.6 C Pulse Rate 127 H 125 H 125 H Respiratory Rate 22 H Blood Pressure 108/64 108/64 108/64 Pulse Oximetry 98 Oxygen Delivery Oxygen Flow Rate 06/29/25 04:00 06/29/25 05:00 06/29/25 06:00 Temperature Pulse Rate 133 H 137 H 121 H Respiratory Rate 17 Blood Pressure 91/66 L Pulse Oximetry 99 Oxygen Delivery Oxygen Flow Rate 06/29/25 06:00 06/29/25 06:00 06/29/25 06:00 Temperature 36.7 C Pulse Rate 121 H 121 H 121 H Respiratory Rate 19 Blood Pressure 109/68 109/58 L 109/68 Pulse Oximetry 98 Oxygen Delivery Oxygen Flow Rate 06/29/25 07:00 06/29/25 07:00 06/29/25 07:00 Temperature Pulse Rate 142 H 130 H 130 H Respiratory Rate 22 H Blood Pressure 96/68 L 92/64 L 92/64 L Pulse Oximetry 98 Oxygen Delivery Oxygen Flow Rate 06/29/25 08:00 06/29/25 08:00 06/29/25 08:00 Temperature Pulse Rate 115 H 122 H 123 H Respiratory Rate 22 H Blood Pressure 102/70 102/70 Pulse Oximetry 98 Oxygen Delivery Nasal Cannula Oxygen Flow Rate 2 06/29/25 08:00 06/29/25 08:00 06/29/25 09:00 Temperature 37.2 C Pulse Rate 123 H 123 H 128 H Respiratory Rate 15 Blood Pressure 97/71 L 128/72 Pulse Oximetry 98 Oxygen Delivery Oxygen Flow Rate 06/29/25 09:00 06/29/25 09:17 06/29/25 09:17 Temperature Pulse Rate 124 H 122 H 122 H Respiratory Rate 25 H Blood Pressure 118/88 128/72 128/72 Pulse Oximetry 100 Oxygen Delivery Oxygen Flow Rate 06/29/25 09:19 06/29/25 09:19 06/29/25 10:00 Temperature Pulse Rate 122 H 122 H 110 H Respiratory Rate Blood Pressure 128/72 128/72 Pulse Oximetry Oxygen Delivery Oxygen Flow Rate 06/29/25 10:00 06/29/25 10:00 06/29/25 10:00 Temperature 37.2 C Pulse Rate 125 H 125 H 126 H Respiratory Rate 25 H Blood Pressure 118/88 118/88 118/88 Pulse Oximetry 100 Oxygen Delivery Oxygen Flow Rate Intake/Output Intake/Output: Intake & Output 06/26/25 06/27/25 06/28/25 06/29/25 23:59 23:59 23:59 23:59 Intake Total 1050 14948.3 98663.5 Output Total 9300 56026 Balance 1050 1227.3 -28.5 Meds/Results Medications: Active Medications Generic Name Dose Route Start Last Admin Trade Name Freq PRN Reason Stop Dose Admin Acetaminophen 650 mg 06/28/25 01:26 Acetaminophen 650 Mg Suppository RECTAL Q6H PRN Mild Pain (1-3) or Fever Acetaminophen 650 mg 06/29/25 10:38 Acetaminophen 325 Mg Tablet PO Q4H PRN Mild Pain (1-3) or Fever Norepinephrine Bitartrate 8 mg in 250 mls @ 9.375 mls/hr 06/28/25 13:15 06/29/25 10:00 Levophed 8 Mg/D5w 250 Ml IV CONT 5 mcg/min .Q24H EUGENIO 9.38 mls/hr Protocol Titration 5 MCG/MIN Diltiazem HCl 100 mg in 100 mls @ 15 mls/hr 06/28/25 21:10 06/29/25 10:00 Cardizem 100 Mg/100 Ml IV CONT 15 mg/hr .Q6H40M EUGENIO 15 mls/hr Protocol Titration 15 MG/HR Meropenem 1 gm/ Sodium 100 mls @ 200 mls/hr 06/29/25 08:30 06/29/25 09:15 Chloride IVPB Infused Q12HR EUGENIO Infusion Latanoprost 1 drop 06/28/25 21:00 06/28/25 20:56 Latanoprost 0.005% Op Soln 2.5 Ml Btl EACH EYE 1 drop HS EUGENIO Administration Ondansetron HCl 4 mg 06/28/25 13:33 06/28/25 13:49 Ondansetron Inj 4 Mg/2 Ml Vial IV PUSH 4 mg Q4H PRN Administration Nausea And Vomiting Perflutren Lipid Microsphere 0 ml 06/28/25 03:25 Perflutren Lipid Microspheres 1.5 Ml Vial Diluted To 10 Ml Total Volume IV PUSH 07/01/25 03:25 ONCE PRN adequate visualization Protocol Sodium Chloride 10 ml 06/28/25 14:00 06/29/25 05:34 Central Line Flush IV PUSH 10 ml Q8HR EUGENIO Administration Sodium Chloride 10 ml 06/28/25 13:03 Central Line Flush IV PUSH PRN PRN with TPN bag changes Sodium Chloride 20 ml 06/28/25 13:03 Central Line Flush IV PUSH PRN PRN after blood draws Radiology Results: ITS Impressions Head CT 06/27/25 21:22 IMPRESSION: No acute intracranial hemorrhage or extra axial fluid collections. All CT scans at this facility are performed using low dose modulation techniques as appropriate to perform exam including the following: automated exposure control; use of iterative reconstruction technique; adjustment of the mA and/or kV according to patient size (this includes techniques or standardized protocols for targeted exams where dose is matched to indication/reason for exam). Chest/Abdomen/Pelvis CTA 06/27/25 22:00 IMPRESSION: 1. Hyperdense soft tissue of the bladder lumen, likely blood clot. Limon catheter present in the bladder lumen. 2: No evidence for aortic aneurysm or dissection. 3: Stenosis of the celiac axis, SMA and renal arteries. Carotid Doppler Study 06/28/25 20:17 IMPRESSION: 1. Less than 50% stenosis in the right internal carotid artery by sonographic criteria. 2. Less than 50% stenosis in the left internal carotid artery by sonographic criteria. Chest X-Ray 06/29/25 08:14 Impression: Mild CHF Labs Labs: Laboratory Results - last 24 hr 06/28/25 06/28/25 06/28/25 07:51 10:05 14:39 WBC RBC Hgb 9.2 L Hct 28.0 L MCV MCH MCHC RDW Plt Count MPV Sodium Potassium Chloride Carbon Dioxide Anion Gap BUN Creatinine Estim Creat Clear Calc Estimated GFR Glucose Lactic Acid 4.3 H* Calcium Magnesium Total Bilirubin AST ALT Alkaline Phosphatase Troponin I 0.947 H* Total Protein Albumin Procalcitonin > 100.0 Blood Type A Positive Antibody Screen Negative Crossmatch See Detail 06/28/25 06/28/25 06/29/25 17:03 21:59 05:33 WBC 33.1 H 33.8 H RBC 2.91 L 2.81 L Hgb 8.8 L 8.7 L Hct 26.7 L 25.8 L MCV 91.8 91.8 MCH 30.2 31.0 MCHC 33.0 33.7 RDW 16.0 H 16.1 H Plt Count 154 139 L MPV 9.0 9.3 Sodium 130 L 133 L Potassium 4.3 4.6 Chloride 102 101 Carbon Dioxide 19 L 23 Anion Gap 9 9 BUN 24 H 29 H Creatinine 1.93 H 2.02 H Estim Creat Clear Calc 21 20 Estimated GFR 33 L 32 L Glucose 129 H 106 Lactic Acid Calcium 8.1 L 8.1 L Magnesium 1.9 Total Bilirubin 0.9 AST 61 H ALT 33 Alkaline Phosphatase 64 Troponin I Total Protein 5.5 L Albumin 3.2 L Procalcitonin Blood Type Antibody Screen Crossmatch Quality VTE Prophylaxis VTE prophylaxis: mechanical ordered
--- NOTE | 2025-06-29 10:56 | PCFNICU ---
ICU Rounding Note: Pt current nutrition is Heart Healthy. Nutrition recommendation: Nutritional Ice Cream BID Last recorded weight is 74.5 kg, up from 70 kg on admit. Bowel Motility: No BM Labs Reviewed:Cr 2.02, BUN 29, Na 133, Alb 3.2, Hct 25.8, Hgb 8.7 Meds Noted: Meropenem, Levophed Skin: WNL Additional Notes: Patient currently on heart healthy diet with Ensure Plus High Protein BID. Oral intake has been poor. Recommending adding an additional diet supplement of Nutritional Ice Cream BID for additional 300 kcal and 9 gm protein. PO intake encouraged. Agree with diet orders. Following daily in ICU rounds and reassessing every 5 days.
[2025-06-29] MEDS: FUROSEMIDE INJ 100 MG/10 ML VIAL 80 MG IV PUSH (11:14)
[2025-06-29] MEDS: ACETAMINOPHEN 325 MG TABLET 650 MG PO (11:18)
--- NOTE | 2025-06-29 12:42 | P.CONNP_ITS ---
Assessment and Plan Assessment and plan (1) Acute kidney injury: Code(s): N17.9 - Acute kidney failure, unspecified Status: Acute Assessment and Plan: * as noted by trend of labs on 06/28 (1.01mg/dl --> 1.39mg/dl) * normal creatinine at baseline as of 3 months ago (March 2025) * suspect multifactorial etiology: * urinary obstruction (with clot) * hypotension/shock * infection/sepsis * contrast exposure (CTA on 06/27) * prerenal factors * CARLOS-I use prior to admission * relative anemia * other(?) * s/p IVF resuscitation (on hold due to concerns of volume overload) * urine studies difficult to interpret with ongoing CBI * CT imaging without osbtruction * follow trend of repeat labs and UOP (2) Septic shock: Code(s): A41.9 - Sepsis, unspecified organism; R65.21 - Severe sepsis with septic shock Status: Acute Assessment and Plan: * presumably due to UTI complicated by blood loss anemia * noted elevated lactic acid and procalcitonin * s/p IVF resuscitation and PRBC transfusion * on vasopressor support - wean as tolerated * follow culture data: * blood cultures (06/27) with GNB * urine culture not done * on antibiotics (3) UTI (urinary tract infection): Code(s): N39.0 - Urinary tract infection, site not specified Status: Acute Assessment and Plan: * suspected by admission UA * however, no urine culture done * on antibiotics (4) Paroxysmal A-fib: Code(s): I48.0 - Paroxysmal atrial fibrillation Status: Acute Assessment and Plan: * attempting rate control strategy * on cardizem gtt * anticoagulation on hold due to hematuria/anemia * Cardiology consulted (5) Hematuria: Code(s): R31.9 - Hematuria, unspecified Status: Acute Assessment and Plan: * persistent hematuria 4 weeks * Urology following: * s/p armstrong catheter placement/exchange on admission * on CBI * 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 Thank you for allowing me to participate in the care of this patient. L History of Present Illness Reason for Consult Consult date: 06/29/25 Reason for consult: acute renal failure Chief Complaint Chief complaint: AMS, afib with rvr, gross hematuria History of Present Illness Narrative: The patient is an 85-year-old male a past medical history as outlined below who presented to [facility] Emergency Room with difficulty urinating and gross hematuria. Patient was just recently seen in the office by his urologist. At that time, he had a chronic indwelling Armstrong catheter and this was subsequently removed in the office. He was sent home with a voiding trial in the hopes that he would not need a chronic Armstrong catheter. However, while he was at home, he had significant difficulty urinating and then noted when he did urinate, it was grossly bloody. Given this change in his clinical condition, he presented to the ER further assessment. Aside from difficulty urinating and the gross hematuria, his only other her acute complaint was that fatigue and weakness. Workup and evaluation emergency room demonstrated the patient to be hemodynamically stable and afebrile. Reportedly, he was slightly altered in his mentation as well. Routine testing was notable for a white blood cell count of 20.6, hemoglobin 9.9, normal renal function, sodium 129, glucose 116, lactic acid 3.3 a calcium of 8.3. His urinalysis was turbid with 3+ protein, 2+ ketones, 3+ blood, 1+ bilirubin and 51-100 red blood cells his ABG showed a pH is 7.48, PO2 of 73.4 a low bicarb but normal pCO2. Subsequent imaging included head CT which demonstrated no acute intracranial process a CT scan of the chest abdomen pelvis with hyperdense soft tissue of the bladder lumen, likely blood clot and stenosis of the celiac axis, SMA, and renal arteries. He was subsequently initiated on IV fluids and after appropriate cultures were obtained, initiated on antibiotics for his presumed UTI and possible sepsis. He was subsequently admitted to hospital further evaluation therapy. Since his admission, he has been having ongoing issues and problems with gross hematuria and apparently an occluded Armstrong catheter. Urology was consulted and a Armstrong catheter was placed and with aspiration presumed clot, his urine output improved but he still continued to have gross hematuria. Continuous bladder irrigation was instituted. On 06/28, he developed significant hypotension was subsequently transferred to the ICU. He was initiated on vasopressor therapy as well as a packed red blood cell transfusion. Renal consultation was requested due to his acute kidney injury/acute renal failure. His renal function at baseline appears to be fairly well preserved and was so on admission as well. However, on 06/28, his creatinine has started to deteriorate with repeat labs this morning show worsening renal dysfunction. In spite of his worsening renal function, he has had no critical electrolyte abnormalities but there is some concern for mild volume overload based on imaging /chest x-ray. He appears to be making reasonable urine output although he remains on continuous bladder irrigation so it is difficult to fully assess. He clinically feels better since his transfer to the ICU. Currently, at the time my evaluation, he appears to be in no acute distress. Review of Systems 2 Review of Systems: As per HPI. 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) 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 bleeding CAD (coronary artery disease) With angioplasty and 2 stents in 1999 COVID Prostate cancer 2021 Vitamin D deficiency Left foot drop Lumbar spinal stenosis Essential (primary) hypertension Gastro-esophageal reflux disease without esophagitis Glaucoma History of prostate cancer Mixed hyperlipidemia Seborrheic keratosis Surgical History Surgical History Status post cataract extraction of both eyes with insertion of intraocular lens Status post total replacement of right shoulder History of eye surgery left eye retinal surgery History of coronary artery stent placement , 1999 Status post total replacement of left shoulder Family History Family History Father Family history of heart disease in male family member before age 55, Onset Age: 58 Hypertension Acute myocardial infarction Heart disease Mother Bladder cancer Cerebrovascular accident Sibling , 2021 Liver cancer, primary, with metastasis from liver to other site sister Social History Social History Social History: He has been for 63 years. He and his raised 1 daughter and 1 son. 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 He drinks 1 glass of wine couple of times a month. He is a lifelong nonsmoker and denies history of illicit substance use. He works out at least once a week at [employer] usually on the treadmill. Code status: Full code Surrogate decision maker: Smoking status: Never smoker Second hand tobacco smoke exposure: No Alcohol intake: never Alcohol use details: occasionally Substance use: never Substance use type: does not use Do You Feel Safe in your Home?: Yes Lack of Transportation: No Lack of Food: Never True Current Housing: I Have Housing Concerned About Future Housing: No Difficulty Paying Gas/Electric Bills: No Difficulty Paying for Meds: No Currently Unemployed: No Education: Trade/Vocational Certificate Difficulty w/ Childcare or Family Care: No Living arrangements: with family Occupation/Education: retired Gender identity (if verbalized by the patient): Male Spiritual care concerns: No Agree to blood products: Yes Meds Home Medications and Allergies Home Medications ?Medication ?Instructions ?Recorded ?Confirmed ?Type aspirin 81 mg tablet,delayed 81 mg PO DAILY 11/14/20 1 08/28/24 History release latanoprost 0.005 % eye drops 1 drp EACH EYE HS 06/28/25 History multivitamin (Multiple Vitamins 1 tablet PO DAILY 10/2306/28/25 History tablet) cholecalciferol (vitamin D3) 10 10 mcg PO DAILY 06/28/25 History mcg (400 unit) tablet vit C 250 mg-vit E 90 mg-zinc 40 1 tablet PO BID 11/1906/28/25 History mg-copper 1 [id number]-[id number] capsule (PreserVision AREDS-2) krill 300 mg-omega 3 90 mg-dha 24 1 cap PO DAILY 02/0206/28/25 History mg-epa 50 hy-cgwzpdo-lkscj capsule (MegaRed [place]-3 Krill Oil) apixaban 5 mg tablet (Eliquis) 5 mg PO Q12HR #60 tabs 07/22/24 06/28/25 Rx metoprolol succinate 100 mg 100 mg PO QAM #30 tabs 06/28/25 Rx tablet,extended release 24 hr (Toprol XL) calcium carbonate 500 mg PO DAILY PRN Indigest ion 08/04/24 06/28/25 History acetaminophen 500 mg capsule 1,000 mg (2 x 500 mg) PO Q6-8H PRN 10/05/24 06/28/25 Rx pain #90 caps alendronate 35 mg tablet See Rx Instructions .Route 0 04/10/25 06/28/25 Rx .COMPLEX #12 tabs atorvastatin 40 mg tablet 40 mg PO HS #90 tabs 2 5 06/28/25 Rx lisinopril 20 mg tablet 20 mg PO DAILY #90 tabs 03/2406/28/25 Rx Allergies Allergy/AdvReac Type Severity Reaction Status Date / Time ioversol Allergy Severe Itching Verified 06/28/25 01:26 iodine Allergy Unknown ITCHING Verified 06/28/25: WITH IV CONTRAST--NO PROBLEM WITH TOPICAL IODINE Vital Signs Vital Signs Temp Pulse Resp BP Pulse Ox O2 Del Method O2 Flow Rate 06/29/25 12:00 97.7 F 121 H 18 91/79 L 97 06/29/25 12:00 Nasal Cannula 2 06/29/25 11:00 99 F 134 H 24 H 125/100 H 98 06/29/25 10:00 99 F 126 H 25 H 118/88 100 06/29/25 10:00 125 H 118/88 06/29/25 10:00 125 H 118/88 06/29/25 10:00 110 H 06/29/25 09:19 122 H 128/72 06/29/25 09:19 122 H 128/72 06/29/25 09:17 122 H 128/72 06/29/25 09:17 122 H 128/72 06/29/25 09:00 124 H 25 H 118/88 100 06/29/25 09:00 128 H 128/72 06/29/25 08:00 98.9 F 123 H 15 97/71 L 98 06/29/25 08:00 123 H 06/29/25 08:00 123 H 22 H 98 Nasal Cannula 2 06/29/25 08:00 122 H 102/70 06/29/25 08:00 115 H 102/70 06/29/25 07:00 130 H 92/64 L 06/29/25 07:00 130 H 92/64 L 06/29/25 07:00 142 H 22 H 96/68 L 98 06/29/25 06:00 121 H 109/68 06/29/25 06:00 121 H 109/58 L 06/29/25 06:00 98.1 F 121 H 19 109/68 98 06/29/25 06:00 121 H 06/29/25 05:00 137 H 17 91/66 L 99 06/29/25 04:00 133 H 06/29/25 04:00 125 H 108/64 06/29/25 04:00 125 H 108/64 06/29/25 04:00 98 F 127 H 22 H 108/64 98 06/29/25 04:00 125 H 17 99 Nasal Cannula 2 06/29/25 03:19 125 H 17 97/70 L 99 06/29/25 03:00 134 H 87/66 L 06/29/25 03:00 143 H 22 H 87/66 L 97 06/29/25 02:57 133 H 96/67 L 06/29/25 02:57 130 H 96/67 L 06/29/25 02:00 126 H 98/63 L 06/29/25 02:00 126 H 20 98/63 L 99 06/29/25 02:00 126 H 06/29/25 02:00 126 H 98/63 L 06/29/25 01:00 127 H 19 96/67 L 97 06/29/25 00:00 141 H 99/58 L 06/29/25 00:00 141 H 99/58 L 06/29/25 00:00 141 H 06/29/25 00:00 123 H 18 97 Nasal Cannula 3 06/29/25 00:00 98.4 F 123 H 18 99/58 L 97 06/28/25 23:00 134 H 22 H 98/69 L 96 06/28/25 22:30 141 H 21 H 100/68 95 06/28/25 22:15 149 H 21 H 91/65 L 96 06/28/25 22:00 160 H 82/58 L 06/28/25 22:00 155 H 82/58 L 06/28/25 22:00 98.1 F 151 H 21 H 82/58 L 96 06/28/25 22:00 146 H 06/28/25 21:39 155 H 90/66 L 06/28/25 21:30 135 H 24 H 92/60 L 98 06/28/25 21:20 163 H 108/72 06/28/25 21:10 125 H 16 97 Nasal Cannula 2 06/28/25 21:00 180 H 26 H 103/64 98 06/28/25 20:54 121 H 17 122/76 98 06/28/25 20:53 121 H 122/76 06/28/25 20:45 127 H 97 Nasal Cannula 06/28/25 20:45 163 H 26 H 98 Nasal Cannula 3 06/28/25 20:00 127 H 06/28/25 20:00 120 H 99/61 L 06/28/25 20:00 98.4 F 125 H 24 H 99/61 L 97 06/28/25 19:00 99 F 117 H 24 H 102/58 L 99 06/28/25 18:00 115 H 111/70 06/28/25 18:00 99.2 F 115 H 24 H 111/66 100 06/28/25 18:00 118 H 06/28/25 17:30 120 H 90/58 L Exam 2 Narrative: GENERAL APPEARANCE: elderly but well developed well nourished male in no acute distress HEENT: normocephalic, atraumatic, normal conjunctiva and sclera, nares patient NECK: no lymphadenopathy, thyromegaly, or JVD MOUTH: normal lips, teeth, and gums CARDIOVASCULAR: tachycardic, normal S1 and S2, no rub RESPIRATORY: decreased at bases with a few crackles ABDOMEN: soft, nontender, nondistended, positive bowel sounds present EXTREMITIES: no evidence of cyanosis, clubbing, or edema NEUROLOGICAL: alert and oriented x 3; CN II - XII intact bilaterally; no focal deficits noted Results Lab Results 07/01/25 04:15 07/01/25 04:15 Lab results: Most recent lab results ABG pH 7.513 (7.350-7.450) H* 06/28/25 00:25 ABG pCO2 26.1 mmHg (35.0-45.0) L 06/28/25 00:25 ABG pO2 54.5 mmHg (80.0-100.0) L 06/28/25 00:25 ABG HCO3 20.5 mEq/l (22.0-26.0) L 06/28/25 00:25 ABG O2 Saturation 91.8 % (95.0-100.0) L 06/28/25 00:25 Calcium 8.1 mg/dL (8.4-10.2) L 06/29/25 05:33 Magnesium 1.9 mg/dL (1.6-2.3) 06/29/25 05:33
--- NOTE | 2025-06-29 16:34 | WPDNEURCNPN ---
Assessment and Plan Assessment and plan (1) Metabolic encephalopathy: Code(s): G93.41 - Metabolic encephalopathy Status: Acute Assessment and Plan: at the time of the presentation patient has had some changes in mental status which has now improved. Given the fact that he was found to have very high white cell count and hematuria and UTI and paroxysmal atrial fibrillation with rapid heart rate it would appear to be most likely metabolic encephalopathy however patient has improved now. (2) Left foot drop: Code(s): M21.372 - Foot drop, left foot Status: Acute Assessment and Plan: The patient has a persistent left foot drop for over 2 years. If you would like to have this investigated was since settled down from his current medical problems I shall be glad to see him in my office and arrange for EMG nerve can study. He probably may need an AFO if he has difficulty in walking. (3) Atrial fibrillation with rapid ventricular response: Code(s): I48.91 - Unspecified atrial fibrillation Status: Acute (4) MOOKIE (acute kidney injury): Code(s): N17.9 - Acute kidney failure, unspecified Status: Acute (5) Gross hematuria: Code(s): R31.0 - Gross hematuria Status: Acute (6) UTI (urinary tract infection): Code(s): N39.0 - Urinary tract infection, site not specified Status: Acute (7) Sleep apnea: Qualifiers: Sleep apnea type: obstructive Qualified Code(s): G47.33 - Obstructive sleep apnea (adult) (pediatric) Code(s): G47.30 - Sleep apnea, unspecified Status: Acute Plan I noted that he has to have an MRI of the brain tomorrow. I shall be glad to review the results. In the meanwhile attention to his significant metabolic problems is in progress. I agree with the same. Consult date: 06/29/25 HPI: Khoa Philippe is a 85 year old male Who presented to the hospital with a spell where he went to bathroom and when he came back he down on the knees and he slumped over and fell asleep. The EMS the thought that he was down for a few hours. Patient also history of left footdrop. There is also history of prostate procedure done about 2 weeks or so ago and has had hematuria. Now he also has been found to have high white cell count and acute renal failure. His blood pressure was low and they are change in mental status which is now improving. He also has atrial fibrillation. CT scan of abdomen shows a clot in the bladder. Carotid duplex scanning was performed which did not show any significant abnormality. CT scan brain also performed which did not show any significant abnormality. Patient denies any weakness in upper lower limbs except for the left footdrop for which he has had physical therapy with some benefit but the problem has been ongoing for 2 years the etiology of this was never clearly established . 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) 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 bleeding CAD (coronary artery disease) With angioplasty and 2 stents in 1999 COVID Prostate cancer 2021 Vitamin D deficiency Left foot drop Lumbar spinal stenosis Essential (primary) hypertension Gastro-esophageal reflux disease without esophagitis Glaucoma History of prostate cancer Mixed hyperlipidemia Seborrheic keratosis Surgical History Surgical History Status post cataract extraction of both eyes with insertion of intraocular lens Status post total replacement of right shoulder History of eye surgery left eye retinal surgery History of coronary artery stent placement , 1999 Status post total replacement of left shoulder Family History Family History Father Family history of heart disease in male family member before age 55, Onset Age: 58 Hypertension Acute myocardial infarction Heart disease Mother Bladder cancer Cerebrovascular accident Sibling , 2021 Liver cancer, primary, with metastasis from liver to other site sister Social History Social History Social History: He has been for 63 years. He and his raised 1 daughter and 1 son. 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 He drinks 1 glass of wine couple of times a month. He is a lifelong nonsmoker and denies history of illicit substance use. He works out at least once a week at [employer] usually on the treadmill. Code status: Full code Surrogate decision maker: Smoking status: Never smoker Second hand tobacco smoke exposure: No Alcohol intake: never Alcohol use details: occasionally Substance use: never Substance use type: does not use Do You Feel Safe in your Home?: Yes Lack of Transportation: No Lack of Food: Never True Current Housing: I Have Housing Concerned About Future Housing: No Difficulty Paying Gas/Electric Bills: No Difficulty Paying for Meds: No Currently Unemployed: No Education: Trade/Vocational Certificate Difficulty w/ Childcare or Family Care: No Living arrangements: with family Occupation/Education: retired Gender identity (if verbalized by the patient): Male Spiritual care concerns: No Agree to blood products: Yes Meds Home Medications and Allergies Home Medications ?Medication ?Instructions ?Recorded ?Confirmed ?Type aspirin 81 mg tablet,delayed 81 mg PO DAILY 11/14/20 06/28/25 History release latanoprost 0.005 % eye drops 1 drp EACH EYE HS 11/14/20 06/28/25 History multivitamin (Multiple Vitamins 1 tablet PO DAILY 11/14/20 06/28/25 History tablet) cholecalciferol (vitamin D3) 10 10 mcg PO DAILY 11/19/21 06/28/25 History mcg (400 unit) tablet vit C 250 mg-vit E 90 mg-zinc 40 1 tablet PO BID 11/19/21 06/28/25 History mg-copper 1 [id number] capsule (PreserVision AREDS-2) krill 300 mg-omega 3 90 mg-dha 24 1 cap PO DAILY 02/02/23 06/28/25 History mg-epa 50 po-kohtuhz-uquee capsule (MegaRed [place]-3 Krill Oil) apixaban 5 mg tablet (Eliquis) 5 mg PO Q12HR #60 tabs 07/22/24 06/28/25 Rx metoprolol succinate 100 mg 100 mg PO QAM #30 tabs 07/22/24 06/28/25 Rx tablet,extended release 24 hr (Toprol XL) calcium carbonate 500 mg PO DAILY PRN Indigestion 08/04/24 06/28/25 History acetaminophen 500 mg capsule 1,000 mg (2 x 500 mg) PO Q6-8H PRN 10/05/24 06/28/25 Rx pain #90 caps alendronate 35 mg tablet See Rx Instructions .Route 04/10/25 06/28/25 Rx .COMPLEX #12 tabs atorvastatin 40 mg tablet 40 mg PO HS #90 tabs 04/10/25 06/28/25 Rx lisinopril 20 mg tablet 20 mg PO DAILY #90 tabs 04/10/25 06/28/25 Rx Allergies Allergy/AdvReac Type Severity Reaction Status Date / Time ioversol Allergy Severe Itching Verified 06/28/25 01:26 iodine Allergy Unknown ITCHING Verified 06/28/25 01:26 WITH IV CONTRAST--NO PROBLEM WITH TOPICAL IODINE Vital Signs Vital Signs - 24 hr 06/28/25 17:00 06/28/25 17:00 06/28/25 17:30 Temperature 99 F Pulse Rate 115 H 126 H 120 H Respiratory Rate 23 H Blood Pressure 90/58 L 95/68 L 90/58 L Pulse Oximetry 100 Oxygen Delivery Oxygen Flow Rate 06/28/25 18:00 06/28/25 18:00 06/28/25 18:00 Temperature 99.2 F Pulse Rate 118 H 115 H 115 H Respiratory Rate 24 H Blood Pressure 111/66 111/70 Pulse Oximetry 100 Oxygen Delivery Oxygen Flow Rate 06/28/25 19:00 06/28/25 20:00 06/28/25 20:00 Temperature 99 F 98.4 F Pulse Rate 117 H 125 H 120 H Respiratory Rate 24 H 24 H Blood Pressure 102/58 L 99/61 L 99/61 L Pulse Oximetry 99 97 Oxygen Delivery Oxygen Flow Rate 06/28/25 20:00 06/28/25 20:45 06/28/25 20:45 Temperature Pulse Rate 127 H 163 H 127 H Respiratory Rate 26 H Blood Pressure Pulse Oximetry 98 97 Oxygen Delivery Nasal Cannula Nasal Cannula Oxygen Flow Rate 3 06/28/25 20:53 06/28/25 20:54 06/28/25 21:00 Temperature Pulse Rate 121 H 121 H 180 H Respiratory Rate 17 26 H Blood Pressure 122/76 122/76 103/64 Pulse Oximetry 98 98 Oxygen Delivery Oxygen Flow Rate 06/28/25 21:10 06/28/25 21:20 06/28/25 21:30 Temperature Pulse Rate 125 H 163 H 135 H Respiratory Rate 16 24 H Blood Pressure 108/72 92/60 L Pulse Oximetry 97 98 Oxygen Delivery Nasal Cannula Oxygen Flow Rate 2 06/28/25 21:39 06/28/25 22:00 06/28/25 22:00 Temperature 98.1 F Pulse Rate 155 H 146 H 151 H Respiratory Rate 21 H Blood Pressure 90/66 L 82/58 L Pulse Oximetry 96 Oxygen Delivery Oxygen Flow Rate 06/28/25 22:00 06/28/25 22:00 06/28/25 22:15 Temperature Pulse Rate 155 H 160 H 149 H Respiratory Rate 21 H Blood Pressure 82/58 L 82/58 L 91/65 L Pulse Oximetry 96 Oxygen Delivery Oxygen Flow Rate 06/28/25 22:30 06/28/25 23:00 06/29/25 00:00 Temperature 98.4 F Pulse Rate 141 H 134 H 123 H Respiratory Rate 21 H 22 H 18 Blood Pressure 100/68 98/69 L 99/58 L Pulse Oximetry 95 96 97 Oxygen Delivery Oxygen Flow Rate 06/29/25 00:00 06/29/25 00:00 06/29/25 00:00 Temperature Pulse Rate 123 H 141 H 141 H Respiratory Rate 18 Blood Pressure 99/58 L Pulse Oximetry 97 Oxygen Delivery Nasal Cannula Oxygen Flow Rate 3 06/29/25 00:00 06/29/25 01:00 06/29/25 02:00 Temperature Pulse Rate 141 H 127 H 126 H Respiratory Rate 19 Blood Pressure 99/58 L 96/67 L 98/63 L Pulse Oximetry 97 Oxygen Delivery Oxygen Flow Rate 06/29/25 02:00 06/29/25 02:00 06/29/25 02:00 Temperature Pulse Rate 126 H 126 H 126 H Respiratory Rate 20 Blood Pressure 98/63 L 98/63 L Pulse Oximetry 99 Oxygen Delivery Oxygen Flow Rate 06/29/25 02:57 06/29/25 02:57 06/29/25 03:00 Temperature Pulse Rate 130 H 133 H 143 H Respiratory Rate 22 H Blood Pressure 96/67 L 96/67 L 87/66 L Pulse Oximetry 97 Oxygen Delivery Oxygen Flow Rate 06/29/25 03:00 06/29/25 03:19 06/29/25 04:00 Temperature Pulse Rate 134 H 125 H 125 H Respiratory Rate 17 17 Blood Pressure 87/66 L 97/70 L Pulse Oximetry 99 99 Oxygen Delivery Nasal Cannula Oxygen Flow Rate 2 06/29/25 04:00 06/29/25 04:00 06/29/25 04:00 Temperature 98 F Pulse Rate 127 H 125 H 125 H Respiratory Rate 22 H Blood Pressure 108/64 108/64 108/64 Pulse Oximetry 98 Oxygen Delivery Oxygen Flow Rate 06/29/25 04:00 06/29/25 05:00 06/29/25 06:00 Temperature Pulse Rate 133 H 137 H 121 H Respiratory Rate 17 Blood Pressure 91/66 L Pulse Oximetry 99 Oxygen Delivery Oxygen Flow Rate 06/29/25 06:00 06/29/25 06:00 06/29/25 06:00 Temperature 98.1 F Pulse Rate 121 H 121 H 121 H Respiratory Rate 19 Blood Pressure 109/68 109/58 L 109/68 Pulse Oximetry 98 Oxygen Delivery Oxygen Flow Rate 06/29/25 07:00 06/29/25 07:00 06/29/25 07:00 Temperature Pulse Rate 142 H 130 H 130 H Respiratory Rate 22 H Blood Pressure 96/68 L 92/64 L 92/64 L Pulse Oximetry 98 Oxygen Delivery Oxygen Flow Rate 06/29/25 08:00 06/29/25 08:00 06/29/25 08:00 Temperature Pulse Rate 115 H 122 H 123 H Respiratory Rate 22 H Blood Pressure 102/70 102/70 Pulse Oximetry 98 Oxygen Delivery Nasal Cannula Oxygen Flow Rate 2 06/29/25 08:00 06/29/25 08:00 06/29/25 09:00 Temperature 98.9 F Pulse Rate 123 H 123 H 128 H Respiratory Rate 15 Blood Pressure 97/71 L 128/72 Pulse Oximetry 98 Oxygen Delivery Oxygen Flow Rate 06/29/25 09:00 06/29/25 09:17 06/29/25 09:17 Temperature Pulse Rate 124 H 122 H 122 H Respiratory Rate 25 H Blood Pressure 118/88 128/72 128/72 Pulse Oximetry 100 Oxygen Delivery Oxygen Flow Rate 06/29/25 09:19 06/29/25 09:19 06/29/25 10:00 Temperature Pulse Rate 122 H 122 H 110 H Respiratory Rate Blood Pressure 128/72 128/72 Pulse Oximetry Oxygen Delivery Oxygen Flow Rate 06/29/25 10:00 06/29/25 10:00 06/29/25 10:00 Temperature 99 F Pulse Rate 125 H 125 H 126 H Respiratory Rate 25 H Blood Pressure 118/88 118/88 118/88 Pulse Oximetry 100 Oxygen Delivery Oxygen Flow Rate 06/29/25 11:00 06/29/25 12:00 06/29/25 12:00 Temperature 99 F Pulse Rate 134 H 121 H 121 H Respiratory Rate 24 H 18 Blood Pressure 125/100 H Pulse Oximetry 98 97 Oxygen Delivery Nasal Cannula Oxygen Flow Rate 2 06/29/25 12:00 06/29/25 12:00 06/29/25 12:00 Temperature 97.7 F Pulse Rate 121 H 121 H 121 H Respiratory Rate 18 Blood Pressure 91/79 L 91/79 L 91/79 L Pulse Oximetry 97 Oxygen Delivery Oxygen Flow Rate 06/29/25 13:00 06/29/25 14:00 06/29/25 14:00 Temperature 97.7 F 98 F Pulse Rate 141 H 127 H 127 H Respiratory Rate 18 22 H Blood Pressure 100/71 107/78 Pulse Oximetry 97 93 Oxygen Delivery Oxygen Flow Rate 06/29/25 14:00 06/29/25 14:00 06/29/25 15:00 Temperature 98.3 F Pulse Rate 127 H 127 H 133 H Respiratory Rate 22 H Blood Pressure 107/78 107/78 102/79 Pulse Oximetry 98 Oxygen Delivery Oxygen Flow Rate 06/29/25 16:00 06/29/25 16:00 06/29/25 16:00 Temperature 98.3 F Pulse Rate 133 H 133 H 133 H Respiratory Rate 22 H 22 H Blood Pressure 109/82 Pulse Oximetry 98 98 Oxygen Delivery Nasal Cannula Oxygen Flow Rate 2 Exam Const: General: cooperative, healthy appearing and comfortable HENMT: Head: atraumatic Mouth: Yes oropharynx normal Eyes: Alignment and Position: alignment normal and position normal EOM: EOMs intact bilaterally Neck: Neck: normal visual inspection and supple Resp: Effort & Inspection: normal respiratory effort Cardio: Rhythm: abnormal rhythm Other: Patient is in atrial fibrillation with heart rate of 125 per minute Skin: General skin exam: normal color Neuro: Cranial nerves: Yes CN's II-XII intact bilaterally, Yes facial symmetry and Yes Midline tongue present Cognition (Neuro): normal cognition Speech: normal speech Sensory Exam: normal sensation Coordination: [id number] test normal and Normal rapid alternating movements of the distal upper extremity present (Neuro) Other: a partial left footdrop was noted. The weakness appears to be either of the dorsiflexion and eversion. Extrem: General: normal to inspection Psych: Appearance: well kempt Mental Status: mental status grossly normal Speech and movement: Normal speech and movement present Affect: normal affect Thought process: Normal thought process present Thought content: Yes Normal thought content present Insight: Good insight present (Psych) Judgement: Good judgement present (Psych) Results Labs 06/29/25 05:33 06/29/25 05:33 Labs: Short CBC 06/28/25 06/29/25 Range/Units 21:59 05:33 WBC 33.1 H 33.8 H (4.5-10.0) K/mm3 Hgb 8.8 L 8.7 L (14.0-18.0) g/dL Hct 26.7 L 25.8 L (42.0-52.0) % Plt Count 154 139 L (150-375) k/mm3 BMP 06/28/25 06/29/25 17:03 05:33 Sodium 130 L 133 L Potassium 4.3 4.6 Chloride 102 101 Carbon Dioxide 19 L 23 BUN 24 H 29 H Creatinine 1.93 H 2.02 H Glucose 129 H 106 Calcium 8.1 L 8.1 L Liver Function 06/29/25 Range/Units 05:33 Total Bilirubin 0.9 (0.2-1.3) mg/dL AST 61 H (17-59) U/L ALT 33 (6-50) U/L Alkaline Phosphatase 64 (38-126) U/L Albumin 3.2 L (3.5-5.1) g/dL Imaging Attestation: I personally reviewed and interpreted this imaging study as follows: ( CT scan of the brain) My impression: CT scan of brain shows moderate atrophy and prominent ventricles. No acute abnormality is seen. Radiologist's impression: Same
[2025-06-29] MEDS: LATANOPROST 0.005% OP SOLN 2.5 ML BTL 1 DROP EACH EYE (20:29)
[2025-06-30] VITALS (45 sets, daily range): BP systolic 79–126; BP diastolic 54–96; PULSE 79–137; RESP 13–26; TEMP 36.4–36.8; O2SAT 94–99
[2025-06-30] MEDS: ACETAMINOPHEN 325 MG TABLET 650 MG PO ×2 (03:04→20:52)
[2025-06-30 05:03] LABS: Hematocrit 26.5 % (42.0-52.0); Hemoglobin 8.9 g/dL (14.0-18.0); Mean Corpuscular HGB Conc 33.6 g/dl (32-36); Mean Corpuscular Hemoglobin 30.5 pg (26-34); Mean Corpuscular Volume 90.8 fl (80-100); Platelet Count Result 108 k/mm3 (150-375); Red Blood Count 2.92 M/mm3 (4.6-6.20); White Blood Count 37.5 K/mm3 (4.5-10.0)
[2025-06-30 05:25] LABS: Alanine Aminotransferase 36 U/L (6-50); Albumin Level 3.1 g/dL (3.5-5.1); Alkaline Phosphatase 109 U/L (38-126); Anion Gap 9 mmol/L (4-12); Aspartate Amino Transferase 50 U/L (17-59); Bilirubin,Total 0.8 mg/dL (0.2-1.3); Blood Urea Nitrogen 38 mg/dL (9-20); Calcium 8.3 mg/dL (8.4-10.2); Carbon Dioxide 24 mmol/L (22-30); Chloride 101 mmol/L (98-107); Estimated CRCL calculation 21 ml/min; Estimated Glomerular Filt Rate 33; Glucose 104 mg/dL (65-110); Magnesium 2.5 mg/dL (1.6-2.3); Potassium 4.0 mmol/L (3.4-5.0); Sodium 134 mmol/L (137-145); Total Protein 5.7 g/dL (6.3-8.2)
[2025-06-30] MEDS: dilTIAZem 100 MG/100 ML 100 MG/100 ML BAG 15 MG IV CONT ×2 (06:21→13:10)
[2025-06-30] MEDS: CENTRAL LINE FLUSH 10 ML IV PUSH ×3 (06:26→20:53)
--- NOTE | 2025-06-30 08:37 | PM.CNCAR ---
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 Elevated cardiac troponin T in absence of chest pain her ischemic ST changes on EKG suggestive of non ST segment elevation myocardial infarction. Patient has significant anemia and elevated creatinine which is contributing to this type 2, non thrombotic myocardial injury. 2. Known history of prostate cancer. Status post the prostate procedure no followed by removal of catheter and patient has hematuria with clots. 3. History of paroxysmal atrial fibrillation. EKG reveals normal sinus rhythm on admission. Patient is on apixaban as well as aspirin at home. 4. Acute blood loss anemia with hemoglobin as low as 8.0. 5. Sepsis with mental status changes. Elevated WBC count. Patient apparently fall at home without any memory of the event 6. Chronic 3B kidney failure. Creatinine is 1.94 with GFR of 33. 7. Hypotension on admission. Blood pressure does remain low and most recent is 95/68 mm of mercury with heart rate of 132 per minute. 8. Paroxysmal atrial fibrillation with rapid ventricular response noted this morning. EKG this morning shows atrial fibrillation with heart rate 172 per minute. Currently on Levophed and Cardizem drip per family support specialist. Recommendations: 1. Atrial fibrillation with a rapid ventricular response in setting of hypotension. Consider elective cardioversion with sedation. Currently patient is on Levophed and IV Cardizem per family support specialist. Digoxin 500 mcg daily followed by digoxin 0.25 mg IV push x1 was ordered. 2. Echocardiogram on 06/28/2025 revealed no are normal left ventricular size with systolic function estimated 45-50% with mild left ventricular hypertrophy. Patient has mild to moderate mitral valve regurgitation mild aortic regurgitation but moderate pulmonary hypertension noted at 57. 3. Digoxin 500 mcg IV push x1 followed by 1 more dose of digoxin point 0.25 mg in 6 hours. 4. Not a candidate for systemic anticoagulation. 5. Correct hypotension in with fluid and blood transfusions. 6. Hold anticoagulation and aspirin for now. 7. Patient is DNR and therefore immediate school for advanced treatment. Continue with comfort measures and symptomatic treatment for now. Poor prognosis. Thank you again for allowing us to participate in care this patient. History of Present Illness History of Present Illness Consult date/time: 06/30/25 08:37 Requesting physician: Owen Lopez MD Consult reason: atrial fibrillation Reason For Visit: AMS, afib with rvr, gross hematuria Narrative: The patient is 85-year-old male admitted on 06/27/2025 with the complaints of weakness and hematuria with clots. Patient has known history of atrial fibrillation, hypertension and prostate cancer as well as Navarro and esophageal reflux disease but Patient recently had a prostate procedure and had some hematuria for 2 weeks due to that. Patient of Braxton was apparently removed and discharged home and subsequently had an episode where he slumped over the ground and the add to bruises on his knee. EMS was called and apparently patient was down for few hours. Patient do not recall the event. No complaints of chest pain, shortness of breath, fever or chills. No complaints of abdominal pain nausea vomiting Admitting blood pressure was 142/82 and heart rate was 86 per minute patient was afebrile. Respirations was 16 per minute and O2 saturation was 96%. Initial blood pressure was 85/47 on admission with heart rate of 105 per minute on 8:00 a.m. on 06/28/2025 Admitting laboratory data revealed WBC count of 30,700, hemoglobin is 8.2 and platelets are normal. Sodium 129, potassium 3.8, BUN is 20, creatinine is 1.39. Glucose was 122. Admitting EKG revealed normal sinus rhythm with peaked T-waves and no wall today just in the limb leads. No significant ischemic ST changes noted. Admitting troponin was 0.449 followed by 0.837 and 0.947. Pattern suggesting it acute coronary syndrome. Review of Systems Review of Systems: Twelve point review of system was completed. Pertinent positive and negative findings per HPI. Constitutional positive for weakness the and recent fall. Negative for fever or chills. Head and neck is negative Cardiovascular negative for chest pain or shortness of breath or palpitation. Pulmonary system negative for shortness of breath, wheezing or hemoptysis. Gastrointestinal system negative for abdominal pain, nausea vomiting or diarrhea. Genitourinary system positive for recent prostate surgery, removal of Limon catheter and hematuria with clot Neurovascular positive for recent episode of mental status changes and fall on the ground the patient does not remember Musculoskeletal positive for bruises on the knee. 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) 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 bleeding CAD (coronary artery disease) With angioplasty and 2 stents in 1999 COVID Prostate cancer 2021 Vitamin D deficiency Left foot drop Lumbar spinal stenosis Essential (primary) hypertension Gastro-esophageal reflux disease without esophagitis Glaucoma History of prostate cancer Mixed hyperlipidemia Seborrheic keratosis Surgical History Surgical History Status post cataract extraction of both eyes with insertion of intraocular lens Status post total replacement of right shoulder History of eye surgery left eye retinal surgery History of coronary artery stent placement , 1999 Status post total replacement of left shoulder Family History Family History Father Family history of heart disease in male family member before age 55, Onset Age: 58 Hypertension Acute myocardial infarction Heart disease Mother Bladder cancer Cerebrovascular accident Sibling , 2021 Liver cancer, primary, with metastasis from liver to other site sister Social History Social History Social History: He has been for 63 years. He and his raised 1 daughter and 1 son. 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 He drinks 1 glass of wine couple of times a month. He is a lifelong nonsmoker and denies history of illicit substance use. He works out at least once a week at [employer] usually on the treadmill. Code status: Full code Surrogate decision maker: Smoking status: Never smoker Second hand tobacco smoke exposure: No Alcohol intake: never Alcohol use details: occasionally Substance use: never Substance use type: does not use Do You Feel Safe in your Home?: Yes Lack of Transportation: No Lack of Food: Never True Current Housing: I Have Housing Concerned About Future Housing: No Difficulty Paying Gas/Electric Bills: No Difficulty Paying for Meds: No Currently Unemployed: No Education: Trade/Vocational Certificate Difficulty w/ Childcare or Family Care: No Living arrangements: with family Occupation/Education: retired Gender identity (if verbalized by the patient): Male Spiritual care concerns: No Agree to blood products: Yes Meds Home Medications and Allergies Home Medications ?Medication ?Instructions ?Recorded ?Confirmed ?Type aspirin 81 mg tablet,delayed 81 mg PO DAILY 11/14/20 06/28/25 History release latanoprost 0.005 % eye drops 1 drp EACH EYE HS 11/14/20 06/28/25 History multivitamin (Multiple Vitamins 1 tablet PO DAILY 11/14/20 06/28/25 History tablet) cholecalciferol (vitamin D3) 10 10 mcg PO DAILY 11/19/21 06/28/25 History mcg (400 unit) tablet vit C 250 mg-vit E 90 mg-zinc 40 1 tablet PO BID 11/19/21 06/28/25 History mg-copper 1 ch-rjczqi-wzivos capsule (PreserVision AREDS-2) krill 300 mg-omega 3 90 mg-dha 24 1 cap PO DAILY 02/02/23 06/28/25 History mg-epa 50 [id number] capsule (MegaRed [place]-3 Krill Oil) apixaban 5 mg tablet (Eliquis) 5 mg PO Q12HR #60 tabs 07/22/24 06/28/25 Rx metoprolol succinate 100 mg 100 mg PO QAM #30 tabs 07/22/24 06/28/25 Rx tablet,extended release 24 hr (Toprol XL) calcium carbonate 500 mg PO DAILY PRN Indigestion 08/04/24 06/28/25 History acetaminophen 500 mg capsule 1,000 mg (2 x 500 mg) PO Q6-8H PRN 10/05/24 06/28/25 Rx pain #90 caps alendronate 35 mg tablet See Rx Instructions .Route 04/10/25 06/28/25 Rx .COMPLEX #12 tabs atorvastatin 40 mg tablet 40 mg PO HS #90 tabs 04/10/25 06/28/25 Rx lisinopril 20 mg tablet 20 mg PO DAILY #90 tabs 04/10/25 06/28/25 Rx Allergies Allergy/AdvReac Type Severity Reaction Status Date / Time ioversol Allergy Severe Itching Verified 06/28/25 01:26 iodine Allergy Unknown ITCHING Verified 06/28/25 01:26 WITH IV CONTRAST--NO PROBLEM WITH TOPICAL IODINE Vital Signs Vital Signs - 24 hr 06/29/25 09:00 06/29/25 09:00 06/29/25 09:17 Temperature Pulse Rate 128 H 124 H 122 H Respiratory Rate 25 H Blood Pressure 128/72 118/88 128/72 Pulse Oximetry 100 Oxygen Delivery Oxygen Flow Rate 06/29/25 09:17 06/29/25 09:19 06/29/25 09:19 Temperature Pulse Rate 122 H 122 H 122 H Respiratory Rate Blood Pressure 128/72 128/72 128/72 Pulse Oximetry Oxygen Delivery Oxygen Flow Rate 06/29/25 10:00 06/29/25 10:00 06/29/25 10:00 Temperature Pulse Rate 110 H 125 H 125 H Respiratory Rate Blood Pressure 118/88 118/88 Pulse Oximetry Oxygen Delivery Oxygen Flow Rate 06/29/25 10:00 06/29/25 11:00 06/29/25 12:00 Temperature 37.2 C 37.2 C Pulse Rate 126 H 134 H 121 H Respiratory Rate 25 H 24 H 18 Blood Pressure 118/88 125/100 H Pulse Oximetry 100 98 97 Oxygen Delivery Nasal Cannula Oxygen Flow Rate 2 06/29/25 12:00 06/29/25 12:00 06/29/25 12:00 Temperature 36.5 C Pulse Rate 121 H 121 H 121 H Respiratory Rate 18 Blood Pressure 91/79 L 91/79 L Pulse Oximetry 97 Oxygen Delivery Oxygen Flow Rate 06/29/25 12:00 06/29/25 13:00 06/29/25 14:00 Temperature 36.5 C Pulse Rate 121 H 141 H 127 H Respiratory Rate 18 Blood Pressure 91/79 L 100/71 Pulse Oximetry 97 Oxygen Delivery Oxygen Flow Rate 06/29/25 14:00 06/29/25 14:00 06/29/25 14:00 Temperature 36.6 C Pulse Rate 127 H 127 H 127 H Respiratory Rate 22 H Blood Pressure 107/78 107/78 107/78 Pulse Oximetry 93 Oxygen Delivery Oxygen Flow Rate 06/29/25 15:00 06/29/25 16:00 06/29/25 16:00 Temperature 36.8 C Pulse Rate 133 H 133 H 133 H Respiratory Rate 22 H 22 H Blood Pressure 102/79 Pulse Oximetry 98 98 Oxygen Delivery Nasal Cannula Oxygen Flow Rate 2 06/29/25 16:00 06/29/25 16:00 06/29/25 16:00 Temperature 36.8 C Pulse Rate 133 H 133 H 133 H Respiratory Rate 22 H Blood Pressure 109/82 109/82 109/82 Pulse Oximetry 98 Oxygen Delivery Oxygen Flow Rate 06/29/25 16:54 06/29/25 17:00 06/29/25 18:00 Temperature Pulse Rate 133 H 131 H 131 H Respiratory Rate 22 H Blood Pressure 112/76 124/81 Pulse Oximetry 98 Oxygen Delivery Oxygen Flow Rate 06/29/25 18:00 06/29/25 18:00 06/29/25 18:00 Temperature Pulse Rate 131 H 131 H 131 H Respiratory Rate 22 H Blood Pressure 110/78 110/78 110/78 Pulse Oximetry 97 Oxygen Delivery Oxygen Flow Rate 06/29/25 19:00 06/29/25 19:50 06/29/25 20:00 Temperature Pulse Rate 128 H 115 H Respiratory Rate 20 Blood Pressure 107/71 Pulse Oximetry 98 97 98 Oxygen Delivery Nasal Cannula Nasal Cannula Oxygen Flow Rate 2 06/29/25 20:00 06/29/25 20:00 06/29/25 20:00 Temperature 36.5 C Pulse Rate 135 H 135 H 135 H Respiratory Rate 21 H Blood Pressure 109/86 109/86 109/86 Pulse Oximetry 96 Oxygen Delivery Oxygen Flow Rate 06/29/25 20:00 06/29/25 21:00 06/29/25 22:00 Temperature Pulse Rate 129 H 129 H 130 H Respiratory Rate 20 Blood Pressure 111/80 109/75 Pulse Oximetry 97 Oxygen Delivery Oxygen Flow Rate 06/29/25 22:00 06/29/25 22:00 06/29/25 22:00 Temperature Pulse Rate 130 H 130 H 128 H Respiratory Rate 17 Blood Pressure 109/75 109/75 Pulse Oximetry 95 Oxygen Delivery Oxygen Flow Rate 06/29/25 23:00 06/29/25 23:41 06/29/25 23:41 Temperature Pulse Rate 128 H 128 H 128 H Respiratory Rate 19 Blood Pressure 105/59 L 104/84 104/84 Pulse Oximetry 96 Oxygen Delivery Oxygen Flow Rate 06/30/25 00:00 06/30/25 00:00 06/30/25 00:00 Temperature Pulse Rate 132 H 132 H Respiratory Rate Blood Pressure 111/75 111/75 Pulse Oximetry 98 Oxygen Delivery Nasal Cannula Oxygen Flow Rate 2 06/30/25 00:00 06/30/25 00:00 06/30/25 01:00 Temperature 36.5 C Pulse Rate 132 H 120 H 134 H Respiratory Rate 18 18 Blood Pressure 111/75 121/79 Pulse Oximetry 96 95 Oxygen Delivery Oxygen Flow Rate 06/30/25 02:00 06/30/25 02:00 06/30/25 02:00 Temperature Pulse Rate 129 H 129 H 129 H Respiratory Rate 17 Blood Pressure 112/84 112/84 112/84 Pulse Oximetry 97 Oxygen Delivery Oxygen Flow Rate 06/30/25 02:00 06/30/25 03:00 06/30/25 04:00 Temperature Pulse Rate 129 H 137 H 129 H Respiratory Rate 20 Blood Pressure 117/79 100/75 Pulse Oximetry 97 Oxygen Delivery Oxygen Flow Rate 06/30/25 04:00 06/30/25 04:00 06/30/25 04:00 Temperature 36.4 C Pulse Rate 129 H 129 H Respiratory Rate 16 Blood Pressure 100/75 100/75 Pulse Oximetry 98 98 Oxygen Delivery Nasal Cannula Oxygen Flow Rate 2 06/30/25 04:00 06/30/25 04:30 06/30/25 04:30 Temperature Pulse Rate 129 H 132 H 132 H Respiratory Rate 16 Blood Pressure 121/81 121/81 Pulse Oximetry 98 Oxygen Delivery Oxygen Flow Rate 06/30/25 04:45 06/30/25 04:45 06/30/25 05:00 Temperature Pulse Rate 123 H 123 H 130 H Respiratory Rate 13 Blood Pressure 112/76 112/76 102/68 Pulse Oximetry 99 Oxygen Delivery Oxygen Flow Rate 06/30/25 05:00 06/30/25 05:15 06/30/25 05:30 Temperature Pulse Rate 130 H 119 H 122 H Respiratory Rate 18 13 17 Blood Pressure 102/68 109/96 H 91/62 L Pulse Oximetry 97 98 98 Oxygen Delivery Oxygen Flow Rate 06/30/25 05:45 06/30/25 06:00 06/30/25 06:00 Temperature Pulse Rate 118 H 114 H 114 H Respiratory Rate 15 Blood Pressure 80/60 L 80/62 L 80/62 L Pulse Oximetry 98 Oxygen Delivery Oxygen Flow Rate 06/30/25 06:00 06/30/25 06:00 06/30/25 06:15 Temperature Pulse Rate 114 H 114 H 112 H Respiratory Rate 16 Blood Pressure 80/62 L 79/55 L Pulse Oximetry 97 Oxygen Delivery Oxygen Flow Rate 06/30/25 06:15 06/30/25 06:21 06/30/25 06:21 Temperature Pulse Rate 112 H 116 H 116 H Respiratory Rate 16 Blood Pressure 79/55 L 79/55 L 79/55 L Pulse Oximetry 98 Oxygen Delivery Oxygen Flow Rate 06/30/25 06:30 06/30/25 06:45 06/30/25 07:00 Temperature Pulse Rate 114 H 120 H 126 H Respiratory Rate 16 21 H 20 Blood Pressure 100/62 104/76 101/70 Pulse Oximetry 99 97 97 Oxygen Delivery Oxygen Flow Rate 06/30/25 08:00 Temperature 36.6 C Pulse Rate 129 H Respiratory Rate 22 H Blood Pressure 89/54 L Pulse Oximetry 98 Oxygen Delivery Oxygen Flow Rate Results Labs and Meds 06/30/25 04:57 06/30/25 04:57 Lab results: Cardiac Enzymes 06/30/25 Range/Units 04:57 AST 50 (17-59) U/L CBC 06/30/25 Range/Units 04:57 WBC 37.5 H (4.5-10.0) K/mm3 RBC 2.92 L (4.6-6.20) M/mm3 Hgb 8.9 L (14.0-18.0) g/dL Hct 26.5 L (42.0-52.0) % Plt Count 108 L (150-375) k/mm3 Comprehensive Metabolic Panel 06/30/25 Range/Units 04:57 Sodium 134 L (137-145) mmol/L Potassium 4.0 (3.4-5.0) mmol/L Chloride 101 (98-107) mmol/L Carbon Dioxide 24 (22-30) mmol/L BUN 38 H (9-20) mg/dL Creatinine 1.94 H (0.7-1.3) mg/dL Glucose 104 (65-110) mg/dL Calcium 8.3 L (8.4-10.2) mg/dL AST 50 (17-59) U/L ALT 36 (6-50) U/L Alkaline Phosphatase 109 (38-126) U/L Total Protein 5.7 L (6.3-8.2) g/dL Albumin 3.1 L (3.5-5.1) g/dL Intake and Output 06/29/25 06/30/25 06/30/25 23:59 07:59 15:59 Intake Total 648.1 179.2 Output Total 1599 1900 Balance -951.9 -1720.8 Intake: IV 308.1 179.2 Norepinephrine 8 mg/D5w 250 ml 78.9 79.2 8 mg In 250 ml @ 3 MCG/MIN 5. 625 mls/hr IV CONT .Q24H EU[facility] Rx #:[id number] dilTIAZem 100 MG/100 ML 100 mg 129.2 100.0 In 100 ml @ 15 MG/HR 15 mls/hr IV CONT .Q6H40M EUGENIO Rx#: [id number] Meropenem 1 gm In Sodium 100 Chloride 0.9% IV 100 ml @ 200 mls/hr IVPB Q12HR EUGENIO Rx#: [id number] Oral 240 Oral Supplement 100 Output: Catheter Urine 1599 1900 3-way Urethral 1599 1900 Patient Weight 06/30/25 23:59 Weight 77.7 kg
[2025-06-30] MEDS: NOREPINEPHRINE 8 MG/D5W 250 ML 8 MG/250 ML BAG 5.63 MG IV CONT (08:50)
[2025-06-30] MEDS: MEROPENEM 1 GM in SODIUM CHLORIDE 0.9% IV 100 ML 200 ML IVPB ×2 (08:51→20:52)
--- NOTE | 2025-06-30 09:30 | P.PNNP_ITS ---
Progress Note: A&P Assessment and Plan (1) Acute kidney injury: Code(s): N17.9 - Acute kidney failure, unspecified Status: Acute Assessment and Plan: * as noted by trend of labs on 06/28 (1.01mg/dl --> 1.39mg/dl) * normal creatinine at baseline as of 3 months ago (March 2025) * suspect multifactorial etiology: * urinary obstruction (with clot) * hypotension/shock * infection/sepsis * contrast exposure (CTA on 06/27) * prerenal factors * CARLOS-I use prior to admission * relative anemia * other(?) * s/p IVF resuscitation (on hold due to concerns of volume overload) * urine studies difficult to interpret with ongoing CBI * CT imaging without osbtruction * follow trend of repeat labs and UOP (2) Septic shock: Code(s): A41.9 - Sepsis, unspecified organism; R65.21 - Severe sepsis with septic shock Status: Acute Assessment and Plan: * presumably due to UTI complicated by blood loss anemia * noted elevated lactic acid and procalcitonin * s/p IVF resuscitation and PRBC transfusion * on vasopressor support - wean as tolerated * follow culture data: * blood cultures (06/27) with GNB * urine culture not done * on antibiotics (3) UTI (urinary tract infection): Code(s): N39.0 - Urinary tract infection, site not specified Status: Acute Assessment and Plan: * suspected by admission UA * however, no urine culture done * on antibiotics (4) Paroxysmal A-fib: Code(s): I48.0 - Paroxysmal atrial fibrillation Status: Acute Assessment and Plan: * attempting rate control strategy * on cardizem gtt * digoxin added * anticoagulation on hold due to hematuria/anemia * Cardiology following with recommendations noted (5) Hematuria: Code(s): R31.9 - Hematuria, unspecified Status: Acute Assessment and Plan: * persistent hematuria 4 weeks * Urology following: * s/p armstrong catheter placement/exchange on admission * on CBI * 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 L Subjective Date/time seen: 06/30/25 09:30 Interval history: Follow-up for acute kidney injury/acute renal failure. Renal function/creatinine stable if not a bit better at this time; remains on low dose vasopressor therapy; stable urine output noted but remains on CBI; no other acute complaints voiced when seen; remains in atrial fibrillation but with better rate control. Exam 2 Narrative: General: elderly but WD/WN male in NAD Heart: IRRR, normal S1 and S2; no rub Lungs: coarse and decreased at bases Abdomen: soft, nontender, nondistended, positive bowel sounds Extremities: no cyanosis or clubbing; trace edema Skin: warm and dry Objective Data Vital Signs Vital Signs: Vital Signs Temp Pulse Resp BP Pulse Ox O2 Del Method O2 Flow Rate 06/30/25 09:00 97.9 F 111 H 26 H 102/75 95 06/30/25 08:50 132 H 95/68 L 06/30/25 08:50 132 H 95/68 L 06/30/25 08:00 98 Nasal Cannula 1 06/30/25 08:00 121 H 06/30/25 08:00 132 H 89/54 L 06/30/25 08:00 132 H 89/54 L 06/30/25 08:00 97.8 F 129 H 22 H 89/54 L 98 06/30/25 07:00 126 H 20 101/70 97 06/30/25 06:45 120 H 21 H 104/76 97 06/30/25 06:30 114 H 16 100/62 99 06/30/25 06:21 116 H 79/55 L 06/30/25 06:21 116 H 79/55 L 06/30/25 06:15 112 H 16 79/55 L 98 06/30/25 06:15 112 H 79/55 L 06/30/25 06:00 114 H 16 80/62 L 97 06/30/25 06:00 114 H 06/30/25 06:00 114 H 80/62 L 06/30/25 06:00 114 H 80/62 L 06/30/25 05:45 118 H 15 80/60 L 98 06/30/25 05:30 122 H 17 91/62 L 98 06/30/25 05:15 119 H 13 109/96 H 98 06/30/25 05:00 130 H 18 102/68 97 06/30/25 05:00 130 H 102/68 06/30/25 04:45 123 H 13 112/76 99 06/30/25 04:45 123 H 112/76 06/30/25 04:30 132 H 16 121/81 98 06/30/25 04:30 132 H 121/81 06/30/25 04:00 129 H 06/30/25 04:00 98 Nasal Cannula 2 06/30/25 04:00 97.6 F 129 H 16 100/75 98 06/30/25 04:00 129 H 100/75 06/30/25 04:00 129 H 100/75 06/30/25 03:00 137 H 20 117/79 97 06/30/25 02:00 129 H 06/30/25 02:00 129 H 17 112/84 97 06/30/25 02:00 129 H 112/84 06/30/25 02:00 129 H 112/84 06/30/25 01:00 134 H 18 121/79 95 06/30/25 00:00 120 H 06/30/25 00:00 97.7 F 132 H 18 111/75 96 06/30/25 00:00 132 H 111/75 06/30/25 00:00 132 H 111/75 06/30/25 00:00 98 Nasal Cannula 2 06/29/25 23:41 128 H 104/84 06/29/25 23:41 128 H 104/84 06/29/25 23:00 128 H 19 105/59 L 96 06/29/25 22:00 128 H 06/29/25 22:00 130 H 17 109/75 95 06/29/25 22:00 130 H 109/75 06/29/25 22:00 130 H 109/75 06/29/25 21:00 129 H 20 111/80 97 06/29/25 20:00 129 H 06/29/25 20:00 97.7 F 135 H 21 H 109/86 96 06/29/25 20:00 135 H 109/86 06/29/25 20:00 135 H 109/86 06/29/25 20:00 98 Nasal Cannula 2 06/29/25 19:50 115 H 97 Nasal Cannula Intake/Output Intake/Output: Intake & Output 06/27/25 06/28/25 06/29/2525 23:59 23:59 23:59 23:59 Intake Total 1050 16613.3 55824.2 1159.4 Output Total 9300 96074 5450 Balance 1050 1227.3 -882.8 -4290.6 Meds/Results Medications: Active Medications Generic Name Dose Route Start Last Admin Trade Name Freq PRN Reason Stop Dose Admin Acetaminophen 650 mg 06/28/25 01:26 Acetaminophen 650 Mg Suppository RECTAL Q6H PRN Mild Pain (1-3) or Fever Acetaminophen 650 mg 06/29/25 10:38 06/30/25 03:04 Acetaminophen 325 Mg Tablet PO 650 mg Q4H PRN Administration Mild Pain (1-3) or Fever Norepinephrine Bitartrate 8 mg in 250 mls @ 0 mls/hr 06/28/25 13:15 06/30/25 18:00 Levophed 8 Mg/D5w 250 Ml IV CONT 0 mcg/min .Q0M EUGENIO 0 mls/hr Protocol Titration 0 MCG/MIN Diltiazem HCl 100 mg in 100 mls @ 7.5 mls/hr 06/28/25 21:10 06/30/25 18:00 Cardizem 100 Mg/100 Ml IV CONT 7.5 mg/hr .[id number] EUGENIO 7.5 mls/hr Protocol Titration 7.5 MG/HR Meropenem 1 gm/ Sodium 100 mls @ 200 mls/hr 06/29/25 08:30 06/30/25 09:21 Chloride IVPB Infused Q12HR EUGENIO Infusion Ipratropium Beeler 0.5 mg 06/30/25 14:00 06/30/25 14:22 Ipratropium Br 0.02% Inh Soln 0.5 Mg/2.5 Ml Vial INHALATION 0.5 mg Q6HRT EUGENIO Administration Latanoprost 1 drop 06/28/25 21:00 06/29/25 20:29 Latanoprost 0.005% Op Soln 2.5 Ml Btl EACH EYE 1 drop HS EUGENIO Administration Levalbuterol HCl 0.63 mg 06/30/25 14:00 06/30/25 14:22 Levalbuterol Neb 1.25 Mg/3 Ml INHALATION 0.63 mg Q6HRT EUGENIO Administration Ondansetron HCl 4 mg 06/28/25 13:33 06/30/25 12:00 Ondansetron Inj 4 Mg/2 Ml Vial IV PUSH 4 mg Q4H PRN Administration Nausea And Vomiting Perflutren Lipid Microsphere 0 ml 06/28/25 03:25 Perflutren Lipid Microspheres 1.5 Ml Vial Diluted To 10 Ml Total Volume IV PUSH 07/01/25 03:25 ONCE PRN adequate visualization Protocol Sodium Chloride 10 ml 06/28/25 14:00 06/30/25 13:12 Central Line Flush IV PUSH 10 ml Q8HR EUGENIO Administration Sodium Chloride 10 ml 06/28/25 13:03 Central Line Flush IV PUSH PRN PRN with TPN bag changes Sodium Chloride 20 ml 06/28/25 13:03 Central Line Flush IV PUSH PRN PRN after blood draws Radiology Results: ITS Impressions Head CT 06/27/25 21:22 IMPRESSION: No acute intracranial hemorrhage or extra axial fluid collections. All CT scans at this facility are performed using low dose modulation techniques as appropriate to perform exam including the following: automated exposure control; use of iterative reconstruction technique; adjustment of the mA and/or kV according to patient size (this includes techniques or standardized protocols for targeted exams where dose is matched to indication/reason for exam). Chest/Abdomen/Pelvis CTA 06/27/25 22:00 IMPRESSION: 1. Hyperdense soft tissue of the bladder lumen, likely blood clot. Armstrong catheter present in the bladder lumen. 2: No evidence for aortic aneurysm or dissection. 3: Stenosis of the celiac axis, SMA and renal arteries. Carotid Doppler Study 06/28/25 20:17 IMPRESSION: 1. Less than 50% stenosis in the right internal carotid artery by sonographic criteria. 2. Less than 50% stenosis in the left internal carotid artery by sonographic criteria. Chest X-Ray 06/29/25 08:14 Impression: Mild CHF Labs Labs: Laboratory Tests 06/30/25 04:57 06/30/25 04:57 Calcium 8.3 L Magnesium 2.5 H Total Bilirubin 0.8 AST 50 ALT 36 Alkaline Phosphatase 109 Total Protein 5.7 L Albumin 3.1 L Microbiology 06/27/25 23:16 Blood Blood Culture - Preliminary 06/27/25 23:08 Blood Blood Culture - Preliminary Gram negative bacilli isolated Proteus mirabilis
--- NOTE | 2025-06-30 09:56 | PCPTNOTE ---
Attempted PT evaluation, pt not medically appropriate to be OOB. Will Follow.
[2025-06-30] MEDS: DIGOXIN INJ 250 MCG/ML 2 ML AMP (*BKC) 500 MCG IV PUSH (11:08)
--- NOTE | 2025-06-30 11:45 | WPDINTPN ---
Progress Note: A&P Assessment and Plan (1) Hypotension: Code(s): I95.9 - Hypotension, unspecified Status: Acute Assessment and Plan: Hypotension likely secondary to acute blood loss anemia and sepsis from UTI Elevate lactic acid and procalcitonin level 06/28: Patient was given fluids yesterday and 1 unit PRBC t. He has been on maintenance IV fluids since yesterday. Patient also received LP Continue Levophed Treatment of infection as below -06/27: Blood cultures growing cocci Gram-negative bacilli -antibiotics switched to meropenem (2) Sepsis: Code(s): A41.9 - Sepsis, unspecified organism Status: Acute Assessment and Plan: Sepsis likely secondary to UTI. Check procalcitonin and lactic acid level Hold further IV fluid Continue antibiotics as above - doxycycline and vancomycin have been discontinue (06/29) (3) Paroxysmal A-fib: Code(s): I48.0 - Paroxysmal atrial fibrillation Status: Acute Assessment and Plan: Not on anticoagulation due to persistent hematuria. Patient now in AFib with RVR. He is allergic to iodine. -holding aspirin and apixaban due to hematuria and anemia Monitor -06/30: cardiology consulted, started patient on digoxin, remains on Cardizem infusion at 15 mg/hr (4) UTI (urinary tract infection): Code(s): N39.0 - Urinary tract infection, site not specified Status: Acute Assessment and Plan: See above (5) Hematuria: Code(s): R31.9 - Hematuria, unspecified Status: Acute Assessment and Plan: Persistent hematuria 4 weeks. Not on anticoagulation. Urology change the Limon catheter and start CBI May need to go for cystoscopy and evacuation. -continues bladder irrigation and process -urology following the (6) Acute blood loss anemia: Code(s): D62 - Acute posthemorrhagic anemia Status: Acute Assessment and Plan: Patient has had persistent hematuria for last few weeks. His hemoglobin has been gradually trending down. It was at least 10 yesterday and is a 0.2 today 06/28 1 unit PRBC transfused Monitor hemoglobin closely Hemoglobin stable, will transfuse if Hb < 7 (7) MOOKIE (acute kidney injury): Code(s): N17.9 - Acute kidney failure, unspecified Status: Acute Assessment and Plan: MOOKIE likely secondary to obstruction, hypotension and hypovolemia Hold further IV fluid due to concern of volume overload Monitor urine output electrolytes and creatinine CT scan does not show any stone or hydronephrosis. Appreciate Nephrology evaluation recommendation -urine output improving, creatinine trending down, continue to monitor (8) Electrolyte abnormality: Code(s): E87.8 - Other disorders of electrolyte and fluid balance, not elsewhere classified Status: Acute Assessment and Plan: Replace electrolytes as needed Plan DVT prophylaxis -SCD Stress ulcer prophylaxis: Not indicated Nutrition -heart healthy diet Code Status -patient wishes to be DNR DNI. This conversation was done in presence of patient's son who is in agreement with patient's wishes and request Total Critical Care Time - 33 minutes Due to a high probability of clinically significant, life threatening deterioration, the patient required my highest level of preparedness to intervene emergently and I personally spent this critical care time directly and personally managing the patient. This critical care time included obtaining a history; examining the patient; pulse oximetry; ordering and review of studies; arranging urgent treatment with development of a management plan; evaluation of patient's response to treatment; frequent reassessment; and discussions with other providers. It was exclusive of separately billable procedures and treating other patients and teaching time. Please see Assessment and Plan section and the rest of the note for further information on patient assessment and treatment This dictation may have been done utilizing a voice recognition system. Attempts have been made to correct errors. However, there may be uncorrected grammatical, spelling, and recognitions errors present. Subjective Date/time seen: 06/30/25 11:45 Interval history: Reason for consult: Hypotension, shock, Gram-negative bacteremia, AFib RVR, hematuria, urinary retention after removal of Limon catheter by Urology in their office. 06/30/2025: Patient seen and examined the ICU, is awake, alert, oriented x3, nonfocal, remains on low-dose Levophed. Urine output has been adequate patient is on continues bladder irrigation. Urine output issues Jose-Aid color. Denies any chest pain, shortness of breath, abdominal pain, nausea, vomiting. States his appetite is not the best this morning. Patient remains in AFib, with heart rates between 100 to 120s Review of Systems Review of Systems: All systems reviewed & are unremarkable except as noted in HPI and below (HPI) Exam Narrative: General: Pt is alert awake and in NAD Lungs/Chest: Trachea central few crackles at base, decreased breath sounds at bases. Slight use of accessory muscles during breathing Cardiac: RRR. Normal S1 S2. No murmurs Circulation: Bilateral dorsalis pedis pulses are palpable Abdomen: Normal bowel sounds.. Soft. NT. ND. Extremities: No clubbing, cyanosis or edema. Warm : Limon in place with blood-tinged urine with CBI Neurologic: Follows commands. Moves all 4 extremities PERRL AO x3 slight hearing impaired Skin: No Rash Objective Data Vital Signs Vital Signs: Vital Signs - 24 hr 06/29/25 12:00 06/29/25 12:00 06/29/25 12:00 Temperature 97.7 F Pulse Rate 121 H 121 H 121 H Respiratory Rate 18 18 Blood Pressure 91/79 L Pulse Oximetry 97 97 Oxygen Delivery Nasal Cannula Oxygen Flow Rate 2 06/29/25 12:00 06/29/25 12:00 06/29/25 13:00 Temperature 97.7 F Pulse Rate 121 H 121 H 141 H Respiratory Rate 18 Blood Pressure 91/79 L 91/79 L 100/71 Pulse Oximetry 97 Oxygen Delivery Oxygen Flow Rate 06/29/25 14:00 06/29/25 14:00 06/29/25 14:00 Temperature 98 F Pulse Rate 127 H 127 H 127 H Respiratory Rate 22 H Blood Pressure 107/78 107/78 Pulse Oximetry 93 Oxygen Delivery Oxygen Flow Rate 06/29/25 14:00 06/29/25 15:00 06/29/25 16:00 Temperature 98.3 F Pulse Rate 127 H 133 H 133 H Respiratory Rate 22 H 22 H Blood Pressure 107/78 102/79 Pulse Oximetry 98 98 Oxygen Delivery Nasal Cannula Oxygen Flow Rate 2 06/29/25 16:00 06/29/25 16:00 06/29/25 16:00 Temperature 98.3 F Pulse Rate 133 H 133 H 133 H Respiratory Rate 22 H Blood Pressure 109/82 109/82 Pulse Oximetry 98 Oxygen Delivery Oxygen Flow Rate 06/29/25 16:00 06/29/25 16:54 06/29/25 17:00 Temperature Pulse Rate 133 H 133 H 131 H Respiratory Rate 22 H Blood Pressure 109/82 112/76 124/81 Pulse Oximetry 98 Oxygen Delivery Oxygen Flow Rate 06/29/25 18:00 06/29/25 18:00 06/29/25 18:00 Temperature Pulse Rate 131 H 131 H 131 H Respiratory Rate 22 H Blood Pressure 110/78 110/78 Pulse Oximetry 97 Oxygen Delivery Oxygen Flow Rate 06/29/25 18:00 06/29/25 19:00 06/29/25 19:50 Temperature Pulse Rate 131 H 128 H 115 H Respiratory Rate 20 Blood Pressure 110/78 107/71 Pulse Oximetry 98 97 Oxygen Delivery Nasal Cannula Oxygen Flow Rate 06/29/25 20:00 06/29/25 20:00 06/29/25 20:00 Temperature Pulse Rate 135 H 135 H Respiratory Rate Blood Pressure 109/86 109/86 Pulse Oximetry 98 Oxygen Delivery Nasal Cannula Oxygen Flow Rate 2 06/29/25 20:00 06/29/25 20:00 06/29/25 21:00 Temperature 97.7 F Pulse Rate 135 H 129 H 129 H Respiratory Rate 21 H 20 Blood Pressure 109/86 111/80 Pulse Oximetry 96 97 Oxygen Delivery Oxygen Flow Rate 06/29/25 22:00 06/29/25 22:00 06/29/25 22:00 Temperature Pulse Rate 130 H 130 H 130 H Respiratory Rate 17 Blood Pressure 109/75 109/75 109/75 Pulse Oximetry 95 Oxygen Delivery Oxygen Flow Rate 06/29/25 22:00 06/29/25 23:00 06/29/25 23:41 Temperature Pulse Rate 128 H 128 H 128 H Respiratory Rate 19 Blood Pressure 105/59 L 104/84 Pulse Oximetry 96 Oxygen Delivery Oxygen Flow Rate 06/29/25 23:41 06/30/25 00:00 06/30/25 00:00 Temperature Pulse Rate 128 H 132 H Respiratory Rate Blood Pressure 104/84 111/75 Pulse Oximetry 98 Oxygen Delivery Nasal Cannula Oxygen Flow Rate 2 06/30/25 00:00 06/30/25 00:00 06/30/25 00:00 Temperature 97.7 F Pulse Rate 132 H 132 H 120 H Respiratory Rate 18 Blood Pressure 111/75 111/75 Pulse Oximetry 96 Oxygen Delivery Oxygen Flow Rate 06/30/25 01:00 06/30/25 02:00 06/30/25 02:00 Temperature Pulse Rate 134 H 129 H 129 H Respiratory Rate 18 Blood Pressure 121/79 112/84 112/84 Pulse Oximetry 95 Oxygen Delivery Oxygen Flow Rate 06/30/25 02:00 06/30/25 02:00 06/30/25 03:00 Temperature Pulse Rate 129 H 129 H 137 H Respiratory Rate 17 20 Blood Pressure 112/84 117/79 Pulse Oximetry 97 97 Oxygen Delivery Oxygen Flow Rate 06/30/25 04:00 06/30/25 04:00 06/30/25 04:00 Temperature 97.6 F Pulse Rate 129 H 129 H 129 H Respiratory Rate 16 Blood Pressure 100/75 100/75 100/75 Pulse Oximetry 98 Oxygen Delivery Oxygen Flow Rate 06/30/25 04:00 06/30/25 04:00 06/30/25 04:30 Temperature Pulse Rate 129 H 132 H Respiratory Rate Blood Pressure 121/81 Pulse Oximetry 98 Oxygen Delivery Nasal Cannula Oxygen Flow Rate 2 06/30/25 04:30 06/30/25 04:45 06/30/25 04:45 Temperature Pulse Rate 132 H 123 H 123 H Respiratory Rate 16 13 Blood Pressure 121/81 112/76 112/76 Pulse Oximetry 98 99 Oxygen Delivery Oxygen Flow Rate 06/30/25 05:00 06/30/25 05:00 06/30/25 05:15 Temperature Pulse Rate 130 H 130 H 119 H Respiratory Rate 18 13 Blood Pressure 102/68 102/68 109/96 H Pulse Oximetry 97 98 Oxygen Delivery Oxygen Flow Rate 06/30/25 05:30 06/30/25 05:45 06/30/25 06:00 Temperature Pulse Rate 122 H 118 H 114 H Respiratory Rate 17 15 Blood Pressure 91/62 L 80/60 L 80/62 L Pulse Oximetry 98 98 Oxygen Delivery Oxygen Flow Rate 06/30/25 06:00 06/30/25 06:00 06/30/25 06:00 Temperature Pulse Rate 114 H 114 H 114 H Respiratory Rate 16 Blood Pressure 80/62 L 80/62 L Pulse Oximetry 97 Oxygen Delivery Oxygen Flow Rate 06/30/25 06:15 06/30/25 06:15 06/30/25 06:21 Temperature Pulse Rate 112 H 112 H 116 H Respiratory Rate 16 Blood Pressure 79/55 L 79/55 L 79/55 L Pulse Oximetry 98 Oxygen Delivery Oxygen Flow Rate 06/30/25 06:21 06/30/25 06:30 06/30/25 06:45 Temperature Pulse Rate 116 H 114 H 120 H Respiratory Rate 16 21 H Blood Pressure 79/55 L 100/62 104/76 Pulse Oximetry 99 97 Oxygen Delivery Oxygen Flow Rate 06/30/25 07:00 06/30/25 08:00 06/30/25 08:00 Temperature 97.8 F Pulse Rate 126 H 129 H 132 H Respiratory Rate 20 22 H Blood Pressure 101/70 89/54 L 89/54 L Pulse Oximetry 97 98 Oxygen Delivery Oxygen Flow Rate 06/30/25 08:00 06/30/25 08:00 06/30/25 08:00 Temperature Pulse Rate 132 H 121 H Respiratory Rate Blood Pressure 89/54 L Pulse Oximetry 98 Oxygen Delivery Nasal Cannula Oxygen Flow Rate 1 06/30/25 08:50 06/30/25 08:50 06/30/25 09:00 Temperature 97.9 F Pulse Rate 132 H 132 H 111 H Respiratory Rate 26 H Blood Pressure 95/68 L 95/68 L 102/75 Pulse Oximetry 95 Oxygen Delivery Oxygen Flow Rate 06/30/25 10:00 06/30/25 10:00 06/30/25 10:00 Temperature Pulse Rate 104 H 117 H 117 H Respiratory Rate Blood Pressure 99/71 L 99/71 L Pulse Oximetry Oxygen Delivery Oxygen Flow Rate 06/30/25 10:00 06/30/25 11:00 06/30/25 11:08 Temperature 97.8 F 98 F Pulse Rate 120 H 119 H 120 H Respiratory Rate 15 16 Blood Pressure 98/70 L 100/68 Pulse Oximetry 97 97 Oxygen Delivery Oxygen Flow Rate Intake/Output Intake/Output: Intake & Output 06/27/25 06/28/25 06/29/25 06/30/25 23:59 23:59 23:59 23:59 Intake Total 1050 10862.3 59437.2 847.2 Output Total 9300 06256 1900 Balance 1050 1227.3 -882.8 -1052.8 Meds/Results Medications: Active Medications Generic Name Dose Route Start Last Admin Trade Name Freq PRN Reason Stop Dose Admin Acetaminophen 650 mg 06/28/25 01:26 Acetaminophen 650 Mg Suppository RECTAL Q6H PRN Mild Pain (1-3) or Fever Acetaminophen 650 mg 06/29/25 10:38 06/30/25 03:04 Acetaminophen 325 Mg Tablet PO 650 mg Q4H PRN Administration Mild Pain (1-3) or Fever Digoxin 250 mcg 06/30/25 17:00 Digoxin Inj 250 Mcg/Ml 2 Ml Amp (*Bkc) IV PUSH 06/30/25 17:01 ONCE ONE Norepinephrine Bitartrate 8 mg in 250 mls @ 5.625 mls/hr 06/28/25 13:15 06/30/25 10:00 Levophed 8 Mg/D5w 250 Ml IV CONT 3 mcg/min .Q24H EUGENIO 5.63 mls/hr Protocol Titration 3 MCG/MIN Diltiazem HCl 100 mg in 100 mls @ 15 mls/hr 06/28/25 21:10 06/30/25 10:00 Cardizem 100 Mg/100 Ml IV CONT 15 mg/hr .Q6H40M EUGENIO 15 mls/hr Protocol Titration 15 MG/HR Meropenem 1 gm/ Sodium 100 mls @ 200 mls/hr 06/29/25 08:30 06/30/25 08:51 Chloride IVPB 200 mls/hr Q12HR EUGENIO Administration Latanoprost 1 drop 06/28/25 21:00 06/29/25 20:29 Latanoprost 0.005% Op Soln 2.5 Ml Btl EACH EYE 1 drop HS EUGENIO Administration Ondansetron HCl 4 mg 06/28/25 13:33 06/28/25 13:49 Ondansetron Inj 4 Mg/2 Ml Vial IV PUSH 4 mg Q4H PRN Administration Nausea And Vomiting Perflutren Lipid Microsphere 0 ml 06/28/25 03:25 Perflutren Lipid Microspheres 1.5 Ml Vial Diluted To 10 Ml Total Volume IV PUSH 07/01/25 03:25 ONCE PRN adequate visualization Protocol Sodium Chloride 10 ml 06/28/25 14:00 06/30/25 06:26 Central Line Flush IV PUSH 10 ml Q8HR EUGENIO Administration Sodium Chloride 10 ml 06/28/25 13:03 Central Line Flush IV PUSH PRN PRN with TPN bag changes Sodium Chloride 20 ml 06/28/25 13:03 Central Line Flush IV PUSH PRN PRN after blood draws Radiology Results: ITS Impressions Head CT 06/27/25 21:22 IMPRESSION: No acute intracranial hemorrhage or extra axial fluid collections. All CT scans at this facility are performed using low dose modulation techniques as appropriate to perform exam including the following: automated exposure control; use of iterative reconstruction technique; adjustment of the mA and/or kV according to patient size (this includes techniques or standardized protocols for targeted exams where dose is matched to indication/reason for exam). Chest/Abdomen/Pelvis CTA 06/27/25 22:00 IMPRESSION: 1. Hyperdense soft tissue of the bladder lumen, likely blood clot. Limon catheter present in the bladder lumen. 2: No evidence for aortic aneurysm or dissection. 3: Stenosis of the celiac axis, SMA and renal arteries. Carotid Doppler Study 06/28/25 20:17 IMPRESSION: 1. Less than 50% stenosis in the right internal carotid artery by sonographic criteria. 2. Less than 50% stenosis in the left internal carotid artery by sonographic criteria. Chest X-Ray 06/29/25 08:14 Impression: Mild CHF Labs Labs: Laboratory Results - last 24 hr 06/30/25 04:57 WBC 37.5 H RBC 2.92 L Hgb 8.9 L Hct 26.5 L MCV 90.8 MCH 30.5 MCHC 33.6 RDW 16.0 H Plt Count 108 L MPV 9.7 Sodium 134 L Potassium 4.0 Chloride 101 Carbon Dioxide 24 Anion Gap 9 BUN 38 H Creatinine 1.94 H Estim Creat Clear Calc 21 Estimated GFR 33 L Glucose 104 Calcium 8.3 L Magnesium 2.5 H Total Bilirubin 0.8 AST 50 ALT 36 Alkaline Phosphatase 109 Total Protein 5.7 L Albumin 3.1 L Quality VTE Prophylaxis VTE prophylaxis: mechanical ordered
--- NOTE | 2025-06-30 11:54 | PCOTNOTE ---
Hold therapy today due to pressor requirements.
[2025-06-30] MEDS: ONDANSETRON INJ 4 MG/2 ML VIAL IV PUSH (12:00)
--- NOTE | 2025-06-30 12:08 | PCFNICU ---
ICU Rounding Note: Pt current nutrition is Heart Healthy with Nutritional Ice Cream and Ensure Plus High Protein BID. Last recorded weight is 77.7 kg, up from 70 kg on admit. Bowel Motility: No BM reported. Labs Reviewed: BUN 38, Cr 1.94, Alb 3.1, Na 134 Meds Noted: Meropenem, Levophed Skin: WNL Additional Notes: Patient is tolerating heart healthy diet. Diet supplements of Nutritional Ice Cream (300 kcal/9 gm protein) and Ensure Plus High Protein (350 kcal and 20 gm protein). Agree with diet orders. Following daily in ICU rounds and reassessing every 5 days.
--- NOTE | 2025-06-30 13:03 | P.PNUR_ITS ---
Progress Note: A&P Assessment and Plan (1) Gross hematuria: Code(s): R31.0 - Gross hematuria Status: Acute (2) UTI (urinary tract infection): Code(s): N39.0 - Urinary tract infection, site not specified Status: Acute Assessment and Plan: * Hematuria likely due to UTI +/- radiation cystitis * Continue CBI for now Plan -Hematuria likely due to UTI +/- radiation cystitis -Continue CBI for now as he continues to have significant hematuria -hgb is stable at 8.9 -if continues significant hematuria through the weekend, we will consider formalin instillation Subjective Subjective Date/Time Seen: 06/30/25 13:03 Interval history: Reason for consult: Hypotension, shock, Gram-negative bacteremia, AFib RVR, hematuria, urinary retention after removal of Limon catheter by Urology in their office. 06/30/2025: Patient seen and examined the ICU, is awake, alert, oriented x3, nonfocal. cbi still moderate to high rate. urine is clear fruit punch colored. Review of Systems Review of Systems: All systems reviewed & are unremarkable except as noted in HPI and below Exam Const: General: no acute distress Eyes: General: appearance normal, both eyes and all related structures Resp: Effort & Inspection: normal respiratory effort GI: Inspection: non-distended Urinary Catheter: Urinary Catheter: patent and draining and urine clear (red) Neuro: Speech: normal speech Objective Data Vital Signs Vital Signs: Vital Signs - 24 hr 06/29/25 14:00 06/29/25 14:00 06/29/25 14:00 Temperature 98 F Pulse Rate 127 H 127 H 127 H Respiratory Rate 22 H Blood Pressure 107/78 107/78 Pulse Oximetry 93 Oxygen Delivery Oxygen Flow Rate 06/29/25 14:00 06/29/25 15:00 06/29/25 16:00 Temperature 98.3 F Pulse Rate 127 H 133 H 133 H Respiratory Rate 22 H 22 H Blood Pressure 107/78 102/79 Pulse Oximetry 98 98 Oxygen Delivery Nasal Cannula Oxygen Flow Rate 2 06/29/25 16:00 06/29/25 16:00 06/29/25 16:00 Temperature 98.3 F Pulse Rate 133 H 133 H 133 H Respiratory Rate 22 H Blood Pressure 109/82 109/82 Pulse Oximetry 98 Oxygen Delivery Oxygen Flow Rate 06/29/25 16:00 06/29/25 16:54 06/29/25 17:00 Temperature Pulse Rate 133 H 133 H 131 H Respiratory Rate 22 H Blood Pressure 109/82 112/76 124/81 Pulse Oximetry 98 Oxygen Delivery Oxygen Flow Rate 06/29/25 18:00 06/29/25 18:00 06/29/25 18:00 Temperature Pulse Rate 131 H 131 H 131 H Respiratory Rate 22 H Blood Pressure 110/78 110/78 Pulse Oximetry 97 Oxygen Delivery Oxygen Flow Rate 06/29/25 18:00 06/29/25 19:00 06/29/25 19:50 Temperature Pulse Rate 131 H 128 H 115 H Respiratory Rate 20 Blood Pressure 110/78 107/71 Pulse Oximetry 98 97 Oxygen Delivery Nasal Cannula Oxygen Flow Rate 06/29/25 20:00 06/29/25 20:00 06/29/25 20:00 Temperature Pulse Rate 135 H 135 H Respiratory Rate Blood Pressure 109/86 109/86 Pulse Oximetry 98 Oxygen Delivery Nasal Cannula Oxygen Flow Rate 2 06/29/25 20:00 06/29/25 20:00 06/29/25 21:00 Temperature 97.7 F Pulse Rate 135 H 129 H 129 H Respiratory Rate 21 H 20 Blood Pressure 109/86 111/80 Pulse Oximetry 96 97 Oxygen Delivery Oxygen Flow Rate 06/29/25 22:00 06/29/25 22:00 06/29/25 22:00 Temperature Pulse Rate 130 H 130 H 130 H Respiratory Rate 17 Blood Pressure 109/75 109/75 109/75 Pulse Oximetry 95 Oxygen Delivery Oxygen Flow Rate 06/29/25 22:00 06/29/25 23:00 06/29/25 23:41 Temperature Pulse Rate 128 H 128 H 128 H Respiratory Rate 19 Blood Pressure 105/59 L 104/84 Pulse Oximetry 96 Oxygen Delivery Oxygen Flow Rate 06/29/25 23:41 06/30/25 00:00 06/30/25 00:00 Temperature Pulse Rate 128 H 132 H Respiratory Rate Blood Pressure 104/84 111/75 Pulse Oximetry 98 Oxygen Delivery Nasal Cannula Oxygen Flow Rate 2 06/30/25 00:00 06/30/25 00:00 06/30/25 00:00 Temperature 97.7 F Pulse Rate 132 H 132 H 120 H Respiratory Rate 18 Blood Pressure 111/75 111/75 Pulse Oximetry 96 Oxygen Delivery Oxygen Flow Rate 06/30/25 01:00 06/30/25 02:00 06/30/25 02:00 Temperature Pulse Rate 134 H 129 H 129 H Respiratory Rate 18 Blood Pressure 121/79 112/84 112/84 Pulse Oximetry 95 Oxygen Delivery Oxygen Flow Rate 06/30/25 02:00 06/30/25 02:00 06/30/25 03:00 Temperature Pulse Rate 129 H 129 H 137 H Respiratory Rate 17 20 Blood Pressure 112/84 117/79 Pulse Oximetry 97 97 Oxygen Delivery Oxygen Flow Rate 06/30/25 04:00 06/30/25 04:00 06/30/25 04:00 Temperature 97.6 F Pulse Rate 129 H 129 H 129 H Respiratory Rate 16 Blood Pressure 100/75 100/75 100/75 Pulse Oximetry 98 Oxygen Delivery Oxygen Flow Rate 06/30/25 04:00 06/30/25 04:00 06/30/25 04:30 Temperature Pulse Rate 129 H 132 H Respiratory Rate Blood Pressure 121/81 Pulse Oximetry 98 Oxygen Delivery Nasal Cannula Oxygen Flow Rate 2 06/30/25 04:30 06/30/25 04:45 06/30/25 04:45 Temperature Pulse Rate 132 H 123 H 123 H Respiratory Rate 16 13 Blood Pressure 121/81 112/76 112/76 Pulse Oximetry 98 99 Oxygen Delivery Oxygen Flow Rate 06/30/25 05:00 06/30/25 05:00 06/30/25 05:15 Temperature Pulse Rate 130 H 130 H 119 H Respiratory Rate 18 13 Blood Pressure 102/68 102/68 109/96 H Pulse Oximetry 97 98 Oxygen Delivery Oxygen Flow Rate 06/30/25 05:30 06/30/25 05:45 06/30/25 06:00 Temperature Pulse Rate 122 H 118 H 114 H Respiratory Rate 17 15 Blood Pressure 91/62 L 80/60 L 80/62 L Pulse Oximetry 98 98 Oxygen Delivery Oxygen Flow Rate 06/30/25 06:00 06/30/25 06:00 06/30/25 06:00 Temperature Pulse Rate 114 H 114 H 114 H Respiratory Rate 16 Blood Pressure 80/62 L 80/62 L Pulse Oximetry 97 Oxygen Delivery Oxygen Flow Rate 06/30/25 06:15 06/30/25 06:15 06/30/25 06:21 Temperature Pulse Rate 112 H 112 H 116 H Respiratory Rate 16 Blood Pressure 79/55 L 79/55 L 79/55 L Pulse Oximetry 98 Oxygen Delivery Oxygen Flow Rate 06/30/25 06:21 06/30/25 06:30 06/30/25 06:45 Temperature Pulse Rate 116 H 114 H 120 H Respiratory Rate 16 21 H Blood Pressure 79/55 L 100/62 104/76 Pulse Oximetry 99 97 Oxygen Delivery Oxygen Flow Rate 06/30/25 07:00 06/30/25 08:00 06/30/25 08:00 Temperature 97.8 F Pulse Rate 126 H 129 H 132 H Respiratory Rate 20 22 H Blood Pressure 101/70 89/54 L 89/54 L Pulse Oximetry 97 98 Oxygen Delivery Oxygen Flow Rate 06/30/25 08:00 06/30/25 08:00 06/30/25 08:00 Temperature Pulse Rate 132 H 121 H Respiratory Rate Blood Pressure 89/54 L Pulse Oximetry 98 Oxygen Delivery Nasal Cannula Oxygen Flow Rate 1 06/30/25 08:50 06/30/25 08:50 06/30/25 09:00 Temperature 97.9 F Pulse Rate 132 H 132 H 111 H Respiratory Rate 26 H Blood Pressure 95/68 L 95/68 L 102/75 Pulse Oximetry 95 Oxygen Delivery Oxygen Flow Rate 06/30/25 10:00 06/30/25 10:00 06/30/25 10:00 Temperature Pulse Rate 104 H 117 H 117 H Respiratory Rate Blood Pressure 99/71 L 99/71 L Pulse Oximetry Oxygen Delivery Oxygen Flow Rate 06/30/25 10:00 06/30/25 11:00 06/30/25 11:08 Temperature 97.8 F 98 F Pulse Rate 120 H 119 H 120 H Respiratory Rate 15 16 Blood Pressure 98/70 L 100/68 Pulse Oximetry 97 97 Oxygen Delivery Oxygen Flow Rate 06/30/25 12:00 06/30/25 12:00 06/30/25 12:00 Temperature 98.1 F Pulse Rate 103 H 105 H 108 H Respiratory Rate 25 H Blood Pressure 104/75 104/75 104/75 Pulse Oximetry 96 Oxygen Delivery Oxygen Flow Rate 06/30/25 12:00 06/30/25 12:00 Temperature Pulse Rate 104 H Respiratory Rate Blood Pressure Pulse Oximetry 96 Oxygen Delivery Nasal Cannula Oxygen Flow Rate 1 Intake/Output Intake/Output: Intake & Output 06/27/25 06/28/25 06/29/25 06/30/25 23:59 23:59 23:59 23:59 Intake Total 1050 70916.3 38314.2 988.5 Output Total 9300 44123 1950 Balance 1050 1227.3 -882.8 -961.5 Meds/Results Medications: Active Medications Generic Name Dose Route Start Last Admin Trade Name Freq PRN Reason Stop Dose Admin Acetaminophen 650 mg 06/28/25 01:26 Acetaminophen 650 Mg Suppository RECTAL Q6H PRN Mild Pain (1-3) or Fever Acetaminophen 650 mg 06/29/25 10:38 06/30/25 03:04 Acetaminophen 325 Mg Tablet PO 650 mg Q4H PRN Administration Mild Pain (1-3) or Fever Digoxin 250 mcg 06/30/25 17:00 Digoxin Inj 250 Mcg/Ml 2 Ml Amp (*Bkc) IV PUSH 06/30/25 17:01 ONCE ONE Norepinephrine Bitartrate 8 mg in 250 mls @ 3.75 mls/hr 06/28/25 13:15 06/30/25 12:00 Levophed 8 Mg/D5w 250 Ml IV CONT 2 mcg/min .Q24H EUGENIO 3.75 mls/hr Protocol Titration 2 MCG/MIN Diltiazem HCl 100 mg in 100 mls @ 15 mls/hr 06/28/25 21:10 06/30/25 12:00 Cardizem 100 Mg/100 Ml IV CONT 15 mg/hr .Q6H40M EUGENIO 15 mls/hr Protocol Titration 15 MG/HR Meropenem 1 gm/ Sodium 100 mls @ 200 mls/hr 06/29/25 08:30 06/30/25 09:21 Chloride IVPB Infused Q12HR EUGENIO Infusion Latanoprost 1 drop 06/28/25 21:00 06/29/25 20:29 Latanoprost 0.005% Op Soln 2.5 Ml Btl EACH EYE 1 drop HS EUGENIO Administration Ondansetron HCl 4 mg 06/28/25 13:33 06/30/25 12:00 Ondansetron Inj 4 Mg/2 Ml Vial IV PUSH 4 mg Q4H PRN Administration Nausea And Vomiting Perflutren Lipid Microsphere 0 ml 06/28/25 03:25 Perflutren Lipid Microspheres 1.5 Ml Vial Diluted To 10 Ml Total Volume IV PUSH 07/01/25 03:25 ONCE PRN adequate visualization Protocol Sodium Chloride 10 ml 06/28/25 14:00 06/30/25 06:26 Central Line Flush IV PUSH 10 ml Q8HR EUGENIO Administration Sodium Chloride 10 ml 06/28/25 13:03 Central Line Flush IV PUSH PRN PRN with TPN bag changes Sodium Chloride 20 ml 06/28/25 13:03 Central Line Flush IV PUSH PRN PRN after blood draws Radiology Results: ITS Impressions Head CT 06/27/25 21:22 IMPRESSION: No acute intracranial hemorrhage or extra axial fluid collections. All CT scans at this facility are performed using low dose modulation techniques as appropriate to perform exam including the following: automated exposure control; use of iterative reconstruction technique; adjustment of the mA and/or kV according to patient size (this includes techniques or standardized protocols for targeted exams where dose is matched to indication/reason for exam). Chest/Abdomen/Pelvis CTA 06/27/25 22:00 IMPRESSION: 1. Hyperdense soft tissue of the bladder lumen, likely blood clot. Limon catheter present in the bladder lumen. 2: No evidence for aortic aneurysm or dissection. 3: Stenosis of the celiac axis, SMA and renal arteries. Carotid Doppler Study 06/28/25 20:17 IMPRESSION: 1. Less than 50% stenosis in the right internal carotid artery by sonographic criteria. 2. Less than 50% stenosis in the left internal carotid artery by sonographic criteria. Chest X-Ray 06/29/25 08:14 Impression: Mild CHF Labs Labs: Laboratory Results - last 24 hr 06/30/25 04:57 WBC 37.5 H RBC 2.92 L Hgb 8.9 L Hct 26.5 L MCV 90.8 MCH 30.5 MCHC 33.6 RDW 16.0 H Plt Count 108 L MPV 9.7 Sodium 134 L Potassium 4.0 Chloride 101 Carbon Dioxide 24 Anion Gap 9 BUN 38 H Creatinine 1.94 H Estim Creat Clear Calc 21 Estimated GFR 33 L Glucose 104 Calcium 8.3 L Magnesium 2.5 H Total Bilirubin 0.8 AST 50 ALT 36 Alkaline Phosphatase 109 Total Protein 5.7 L Albumin 3.1 L
[2025-06-30] MEDS: IPRATROPIUM BR 0.02% INH SOLN 0.5 MG/2.5 ML VIAL INHALATION ×2 (14:22→20:17)
[2025-06-30] MEDS: DIGOXIN INJ 250 MCG/ML 2 ML AMP (*BKC) IV PUSH (17:39)
[2025-06-30] MEDS: LATANOPROST 0.005% OP SOLN 2.5 ML BTL 1 DROP EACH EYE (20:53)
--- NOTE | 2025-06-30 22:45 | PCRCNOTE ---
Pt does not want CPAP/BIPAP of any kind, says he does not have at home and does not want here
[2025-07-01] VITALS (60 sets, daily range): BP systolic 94–140; BP diastolic 58–84; PULSE 77–120; RESP 7–29; TEMP 36.3–37; O2SAT 79–98
[2025-07-01] MEDS: dilTIAZem 100 MG/100 ML 100 MG/100 ML BAG 7.5 MG IV CONT ×2 (01:13→15:44)
[2025-07-01] MEDS: IPRATROPIUM BR 0.02% INH SOLN 0.5 MG/2.5 ML VIAL INHALATION ×4 (02:23→20:17)
[2025-07-01 04:23] LABS: Hematocrit 26.0 % (42.0-52.0); Hemoglobin 8.6 g/dL (14.0-18.0); Immature Platelet Fraction Pct 3.1 % (0.9-11.2); Mean Corpuscular HGB Conc 33.1 g/dl (32-36); Mean Corpuscular Hemoglobin 30.3 pg (26-34); Mean Corpuscular Volume 91.5 fl (80-100); Red Blood Count 2.84 M/mm3 (4.6-6.20); White Blood Count 30.9 K/mm3 (4.5-10.0)
[2025-07-01 04:41] LABS: Alanine Aminotransferase 34 U/L (6-50); Albumin Level 2.9 g/dL (3.5-5.1); Alkaline Phosphatase 88 U/L (38-126); Anion Gap 7 mmol/L (4-12); Aspartate Amino Transferase 33 U/L (17-59); Bilirubin,Total 0.6 mg/dL (0.2-1.3); Blood Urea Nitrogen 45 mg/dL (9-20); Calcium 8.1 mg/dL (8.4-10.2); Carbon Dioxide 25 mmol/L (22-30); Chloride 102 mmol/L (98-107); Estimated CRCL calculation 26 ml/min; Estimated Glomerular Filt Rate 37; Glucose 97 mg/dL (65-110); Magnesium 2.7 mg/dL (1.6-2.3); Potassium 3.7 mmol/L (3.4-5.0); Sodium 134 mmol/L (137-145); Total Protein 5.5 g/dL (6.3-8.2)
[2025-07-01 04:51] LABS: Platelet Count Result 82 k/mm3 (150-375)
[2025-07-01 04:52] LABS: Anisocytosis 1+; Band Neutrophils Percent 4 % (0-6); Lymphocytes Absolute Manual 0.30 K/mm3 (1.1-4.5); Lymphocytes Percent Manual 1.0 % (18-44); Monocytes Absolute Manual 0.30 K/mm3 (0.1-0.90); Monocytes Percent Manual 1 % (3-9); Neutrophils Absolute Manual 30.28 K/mm3 (1.3-6.7); Neutrophils Percent Manual 94 % (46-73); Schistocytes None Seen; Total Cells Counted 100
[2025-07-01] MEDS: CENTRAL LINE FLUSH 10 ML IV PUSH ×3 (06:50→20:05)
[2025-07-01] MEDS: POTASSIUM CHLORIDE 20 MEQ ER TABLET PO (08:14)
[2025-07-01] MEDS: MEROPENEM 1 GM in SODIUM CHLORIDE 0.9% IV 100 ML 200 ML IVPB ×2 (08:14→20:06)
--- NOTE | 2025-07-01 08:23 | WPDINTPN ---
Progress Note: A&P Assessment and Plan (1) Hypotension: Code(s): I95.9 - Hypotension, unspecified Status: Acute Assessment and Plan: Hypotension likely secondary to acute blood loss anemia and sepsis from UTI Elevate lactic acid and procalcitonin level 06/28: Patient was given fluids yesterday and 1 unit PRBC t. He has been on maintenance IV fluids since yesterday. Patient also received LP Continue Levophed Treatment of infection as below -06/27: Blood cultures growing Proteus mirabilis, sensitivities pending -continue meropenem (06/29) -will repeat blood cultures, white blood cell counts trending down, afebrile (2) Sepsis: Code(s): A41.9 - Sepsis, unspecified organism Status: Acute Assessment and Plan: Sepsis likely secondary to UTI. Hold further IV fluid Continue antibiotics as above - doxycycline and vancomycin have been discontinue (06/29) (3) Paroxysmal A-fib: Code(s): I48.0 - Paroxysmal atrial fibrillation Status: Acute Assessment and Plan: Not on anticoagulation due to persistent hematuria. Patient now in AFib with RVR. He is allergic to iodine. -holding aspirin and apixaban due to hematuria and anemia Monitor -06/30: cardiology consulted, started patient on digoxin, remains on Cardizem infusion at 15 mg/hr -07/01: Cardizem infusion has been decreased to 7.5 mg/hr, status post digoxin 06/30 per Cardiology (4) UTI (urinary tract infection): Code(s): N39.0 - Urinary tract infection, site not specified Status: Acute Assessment and Plan: See above (5) Hematuria: Code(s): R31.9 - Hematuria, unspecified Status: Acute Assessment and Plan: Persistent hematuria 4 weeks. Not on anticoagulation. Urology change the Limon catheter and start CBI May need to go for cystoscopy and evacuation. -continuous bladder irrigation in process -urology following the patient (6) Acute blood loss anemia: Code(s): D62 - Acute posthemorrhagic anemia Status: Acute Assessment and Plan: Patient has had persistent hematuria for last few weeks. His hemoglobin has been gradually trending down. It was at least 10 yesterday and is a 0.2 today 06/28 1 unit PRBC transfused Monitor hemoglobin closely Hemoglobin stable, will transfuse if Hb < 7 (7) MOOKIE (acute kidney injury): Code(s): N17.9 - Acute kidney failure, unspecified Status: Acute Assessment and Plan: MOOKIE likely secondary to obstruction, hypotension and hypovolemia Hold further IV fluid due to concern of volume overload Monitor urine output electrolytes and creatinine CT scan does not show any stone or hydronephrosis. Appreciate Nephrology evaluation recommendation -urine output improving, creatinine trending down, continue to monitor (8) Electrolyte abnormality: Code(s): E87.8 - Other disorders of electrolyte and fluid balance, not elsewhere classified Status: Acute Assessment and Plan: Replace electrolytes as needed Plan DVT prophylaxis -SCDs, no chemoprophylaxis due to hematuria Stress ulcer prophylaxis: Not indicated Nutrition -heart healthy diet Code Status -patient wishes to be DNR DNI. This conversation was done in presence of patient's son who is in agreement with patient's wishes and request Total Critical Care Time - 32 minutes Due to a high probability of clinically significant, life threatening deterioration, the patient required my highest level of preparedness to intervene emergently and I personally spent this critical care time directly and personally managing the patient. This critical care time included obtaining a history; examining the patient; pulse oximetry; ordering and review of studies; arranging urgent treatment with development of a management plan; evaluation of patient's response to treatment; frequent reassessment; and discussions with other providers. It was exclusive of separately billable procedures and treating other patients and teaching time. Please see Assessment and Plan section and the rest of the note for further information on patient assessment and treatment This dictation may have been done utilizing a voice recognition system. Attempts have been made to correct errors. However, there may be uncorrected grammatical, spelling, and recognitions errors present. Subjective Date/time seen: 07/01/25 08:23 Interval history: Reason for consult: Hypotension, shock, Gram-negative bacteremia, AFib RVR, hematuria, urinary retention after removal of Limon catheter by Urology in their office. 07/01/2025: Patient seen and examined the ICU, is awake, alert, oriented x3, nonfocal -off Levophed since 06/30 afternoon. Urine output has been adequate, continues bladder irrigation in process, urine output continues to be of fruit punch color. Complained of some wheezing yesterday which has improved with bronchodilators. Denies any chest pain, shortness of breath, abdominal pain, nausea, vomiting. Appetite is still poor, but patient does drink his Ensure. Patient remains in AFib with better rate control and Cardizem being weaned. Review of Systems Review of Systems: All systems reviewed & are unremarkable except as noted in HPI and below (HPI) Exam Narrative: General: Pt is alert awake and in NAD HEENT: Pupils equal and reactive, sclera is clear Lungs/Chest: Coarse breath sounds at the bases, no wheezing, adequate air entry Cardiac: Irregularly irregular, rate controlled. Circulation: Bilateral dorsalis pedis pulses are palpable,ma Abdomen: Normal bowel sounds.. Soft. NT. ND. Extremities: No clubbing, cyanosis, trace edema, warm extremities : Limon in place with blood-tinged urine with CBI Neurologic: Follows commands. Moves all 4 extremities PERRL AO x3 slight hearing impaired Skin: No Rash Objective Data Vital Signs Vital Signs: Vital Signs - 24 hr 06/30/25 08:50 06/30/25 08:50 06/30/25 09:00 Temperature 97.9 F Pulse Rate 132 H 132 H 111 H Respiratory Rate 26 H Blood Pressure 95/68 L 95/68 L 102/75 Pulse Oximetry 95 Oxygen Delivery Oxygen Flow Rate 06/30/25 10:00 06/30/25 10:00 06/30/25 10:00 Temperature Pulse Rate 104 H 117 H 117 H Respiratory Rate Blood Pressure 99/71 L 99/71 L Pulse Oximetry Oxygen Delivery Oxygen Flow Rate 06/30/25 10:00 06/30/25 11:00 06/30/25 11:08 Temperature 97.8 F 98 F Pulse Rate 120 H 119 H 120 H Respiratory Rate 15 16 Blood Pressure 98/70 L 100/68 Pulse Oximetry 97 97 Oxygen Delivery Oxygen Flow Rate 06/30/25 12:00 06/30/25 12:00 06/30/25 12:00 Temperature 98.1 F Pulse Rate 103 H 105 H 108 H Respiratory Rate 25 H Blood Pressure 104/75 104/75 104/75 Pulse Oximetry 96 Oxygen Delivery Oxygen Flow Rate 06/30/25 12:00 06/30/25 12:00 06/30/25 13:00 Temperature 97.7 F Pulse Rate 104 H 114 H Respiratory Rate 23 H Blood Pressure 126/83 Pulse Oximetry 96 96 Oxygen Delivery Nasal Cannula Oxygen Flow Rate 1 06/30/25 13:10 06/30/25 13:10 06/30/25 13:12 Temperature Pulse Rate 104 H 104 H 128 H Respiratory Rate Blood Pressure 126/83 126/83 126/83 Pulse Oximetry Oxygen Delivery Oxygen Flow Rate 06/30/25 13:47 06/30/25 14:00 06/30/25 14:00 Temperature Pulse Rate 91 81 79 Respiratory Rate Blood Pressure 104/68 98/70 L 98/70 L Pulse Oximetry Oxygen Delivery Oxygen Flow Rate 06/30/25 14:00 06/30/25 14:00 06/30/25 14:23 Temperature 98.2 F Pulse Rate 88 82 87 Respiratory Rate 16 22 H Blood Pressure 96/65 L Pulse Oximetry 96 Oxygen Delivery Oxygen Flow Rate 06/30/25 14:29 06/30/25 14:30 06/30/25 15:00 Temperature 97.6 F Pulse Rate 86 95 Respiratory Rate 20 20 Blood Pressure 103/69 Pulse Oximetry 96 96 Oxygen Delivery Nasal Cannula Oxygen Flow Rate 1 06/30/25 16:00 06/30/25 16:00 06/30/25 16:00 Temperature 98.3 F Pulse Rate 92 89 90 Respiratory Rate 16 Blood Pressure 98/67 L 98/67 L 98/67 L Pulse Oximetry 96 Oxygen Delivery Oxygen Flow Rate 06/30/25 16:00 06/30/25 16:00 06/30/25 17:00 Temperature Pulse Rate 81 86 Respiratory Rate 17 Blood Pressure 96/66 L Pulse Oximetry 96 98 Oxygen Delivery Nasal Cannula Oxygen Flow Rate 1 06/30/25 17:39 06/30/25 17:52 06/30/25 18:00 Temperature 98 F Pulse Rate 85 89 96 Respiratory Rate 20 Blood Pressure 106/69 103/73 Pulse Oximetry 98 Oxygen Delivery Oxygen Flow Rate 06/30/25 18:00 06/30/25 18:00 06/30/25 18:00 Temperature Pulse Rate 89 82 86 Respiratory Rate Blood Pressure 103/73 103/73 Pulse Oximetry Oxygen Delivery Oxygen Flow Rate 06/30/25 18:51 06/30/25 20:00 06/30/25 20:00 Temperature 97.7 F 98.3 F Pulse Rate 82 84 84 Respiratory Rate 19 15 Blood Pressure 102/68 114/66 114/66 Pulse Oximetry 94 99 Oxygen Delivery Oxygen Flow Rate 06/30/25 20:00 06/30/25 20:00 06/30/25 20:00 Temperature Pulse Rate 84 83 Respiratory Rate Blood Pressure 114/66 Pulse Oximetry 99 Oxygen Delivery Nasal Cannula Oxygen Flow Rate 1 06/30/25 20:17 06/30/25 20:27 06/30/25 20:27 Temperature Pulse Rate 84 87 Respiratory Rate 18 20 Blood Pressure Pulse Oximetry 96 Oxygen Delivery Nasal Cannula Oxygen Flow Rate 1 06/30/25 21:00 06/30/25 22:00 06/30/25 22:00 Temperature Pulse Rate 98 93 93 Respiratory Rate 19 14 Blood Pressure 110/70 96/62 L 96/62 L Pulse Oximetry 96 96 Oxygen Delivery Oxygen Flow Rate 06/30/25 22:00 06/30/25 22:00 06/30/25 23:00 Temperature Pulse Rate 93 93 91 Respiratory Rate 16 Blood Pressure 96/62 L 112/70 Pulse Oximetry 97 Oxygen Delivery Oxygen Flow Rate 07/01/25 00:00 07/01/25 00:00 07/01/25 00:00 Temperature 97.3 F L Pulse Rate 96 96 Respiratory Rate 16 Blood Pressure 97/66 L 97/66 L Pulse Oximetry 96 96 Oxygen Delivery Nasal Cannula Oxygen Flow Rate 1 07/01/25 00:00 07/01/25 00:00 07/01/25 01:00 Temperature Pulse Rate 96 97 94 Respiratory Rate 14 Blood Pressure 97/66 L 94/62 L Pulse Oximetry 97 Oxygen Delivery Oxygen Flow Rate 07/01/25 01:13 07/01/25 01:13 07/01/25 02:00 Temperature Pulse Rate 93 93 95 Respiratory Rate 18 Blood Pressure 94/62 L 94/62 L 102/58 L Pulse Oximetry 98 Oxygen Delivery Oxygen Flow Rate 07/01/25 02:00 07/01/25 02:00 07/01/25 02:00 Temperature Pulse Rate 95 95 91 Respiratory Rate Blood Pressure 102/58 L 102/58 L Pulse Oximetry Oxygen Delivery Oxygen Flow Rate 07/01/25 02:23 07/01/25 02:32 07/01/25 03:00 Temperature Pulse Rate 77 89 101 H Respiratory Rate 16 14 19 Blood Pressure 96/58 L Pulse Oximetry 96 Oxygen Delivery Oxygen Flow Rate 07/01/25 04:00 07/01/25 04:00 07/01/25 04:00 Temperature 97.6 F Pulse Rate 87 87 Respiratory Rate 12 Blood Pressure 114/67 114/67 Pulse Oximetry 96 97 Oxygen Delivery Nasal Cannula Oxygen Flow Rate 1 07/01/25 04:00 07/01/25 04:00 07/01/25 05:00 Temperature Pulse Rate 87 94 85 Respiratory Rate 12 Blood Pressure 114/67 104/64 Pulse Oximetry 98 Oxygen Delivery Oxygen Flow Rate 07/01/25 06:00 07/01/25 06:00 07/01/25 06:00 Temperature Pulse Rate 86 86 86 Respiratory Rate 12 Blood Pressure 106/62 106/62 106/62 Pulse Oximetry 98 Oxygen Delivery Oxygen Flow Rate 07/01/25 06:00 07/01/25 07:00 07/01/25 08:00 Temperature 98.2 F Pulse Rate 86 89 100 Respiratory Rate 15 20 Blood Pressure 119/81 Pulse Oximetry 97 97 Oxygen Delivery Oxygen Flow Rate 07/01/25 08:11 Temperature Pulse Rate Respiratory Rate Blood Pressure 114/71 Pulse Oximetry Oxygen Delivery Oxygen Flow Rate Intake/Output Intake/Output: Intake & Output 06/28/25 06/29/25 06/30/25 07/01/25 23:59 23:59 23:59 23:59 Intake Total 94461.3 89093.2 4289.4 08198.7 Output Total 9300 37590 8950 93639 Balance 1227.3 -882.8 -4660.6 -1645.3 Meds/Results Medications: Active Medications Generic Name Dose Route Start Last Admin Trade Name Freq PRN Reason Stop Dose Admin Acetaminophen 650 mg 06/28/25 01:26 Acetaminophen 650 Mg Suppository RECTAL Q6H PRN Mild Pain (1-3) or Fever Acetaminophen 650 mg 06/29/25 10:38 06/30/25 20:52 Acetaminophen 325 Mg Tablet PO 650 mg Q4H PRN Administration Mild Pain (1-3) or Fever Norepinephrine Bitartrate 8 mg in 250 mls @ 0 mls/hr 06/28/25 13:15 07/01/25 06:00 Levophed 8 Mg/D5w 250 Ml IV CONT 0 mcg/min .Q0M EUGENIO 0 mls/hr Protocol Titration 0 MCG/MIN Diltiazem HCl 100 mg in 100 mls @ 7.5 mls/hr 06/28/25 21:10 07/01/25 06:00 Cardizem 100 Mg/100 Ml IV CONT 7.5 mg/hr .[id number] EUGENIO 7.5 mls/hr Protocol Titration 7.5 MG/HR Meropenem 1 gm/ Sodium 100 mls @ 200 mls/hr 06/29/25 08:30 07/01/25 08:14 Chloride IVPB 200 mls/hr Q12HR EUGENIO Administration Ipratropium [place] 0.5 mg 06/30/25 14:00 07/01/25 02:23 Ipratropium Br 0.02% Inh Soln 0.5 Mg/2.5 Ml Vial INHALATION 0.5 mg Q6HRT EUGENIO Administration Latanoprost 1 drop 06/28/25 21:00 06/30/25 20:53 Latanoprost 0.005% Op Soln 2.5 Ml Btl EACH EYE 1 drop HS EUGENIO Administration Levalbuterol HCl 0.63 mg 06/30/25 14:00 07/01/25 02:23 Levalbuterol Neb 1.25 Mg/3 Ml INHALATION 0.63 mg Q6HRT EUGENIO Administration Ondansetron HCl 4 mg 06/28/25 13:33 06/30/25 12:00 Ondansetron Inj 4 Mg/2 Ml Vial IV PUSH 4 mg Q4H PRN Administration Nausea And Vomiting Sodium Chloride 10 ml 06/28/25 14:00 07/01/25 06:50 Central Line Flush IV PUSH 10 ml Q8HR EUGENIO Administration Sodium Chloride 10 ml 06/28/25 13:03 Central Line Flush IV PUSH PRN PRN with TPN bag changes Sodium Chloride 20 ml 06/28/25 13:03 Central Line Flush IV PUSH PRN PRN after blood draws Radiology Results: ITS Impressions Head CT 06/27/25 21:22 IMPRESSION: No acute intracranial hemorrhage or extra axial fluid collections. All CT scans at this facility are performed using low dose modulation techniques as appropriate to perform exam including the following: automated exposure control; use of iterative reconstruction technique; adjustment of the mA and/or kV according to patient size (this includes techniques or standardized protocols for targeted exams where dose is matched to indication/reason for exam). Chest/Abdomen/Pelvis CTA 06/27/25 22:00 IMPRESSION: 1. Hyperdense soft tissue of the bladder lumen, likely blood clot. Limon catheter present in the bladder lumen. 2: No evidence for aortic aneurysm or dissection. 3: Stenosis of the celiac axis, SMA and renal arteries. Carotid Doppler Study 06/28/25 20:17 IMPRESSION: 1. Less than 50% stenosis in the right internal carotid artery by sonographic criteria. 2. Less than 50% stenosis in the left internal carotid artery by sonographic criteria. Chest X-Ray 06/29/25 08:14 Impression: Mild CHF Labs Labs: Laboratory Results - last 24 hr 07/01/25 04:15 WBC 30.9 H RBC 2.84 L Hgb 8.6 L Hct 26.0 L MCV 91.5 MCH 30.3 MCHC 33.1 RDW 15.9 H Plt Count 82 L MPV 10.1 Immature Gran % (Auto) Not Reportable Neut % (Auto) Not Reportable Lymph % (Auto) Not Reportable Cotton % (Auto) Not Reportable Eos % (Auto) Not Reportable Baso % (Auto) Not Reportable Lymph # (Auto) Not Reportable Cotton # (Auto) Not Reportable Eos # (Auto) Not Reportable Baso # (Auto) Not Reportable Abs Immat Gran (auto) Not Reportable Absolute Neuts (auto) Not Reportable Absolute Nucleated RBC Not Reportable Total Counted 100 Neutrophils % (Manual) 94 H Band Neutrophils % 4 Lymphocytes % (Manual) 1.0 L Monocytes % (Manual) 1 L Nucleated RBC % Not Reportable Abs Neuts (Manual) 30.28 H Abs Lymphs (Manual) 0.30 L Abs Monocytes (Manual) 0.30 Platelet Estimate Decreased % Immature Plt Fraction 3.1 Anisocytosis 1+ Schistocytes None seen Sodium 134 L Potassium 3.7 Chloride 102 Carbon Dioxide 25 Anion Gap 7 BUN 45 H Creatinine 1.77 H Estim Creat Clear Calc 26 Estimated GFR 37 L Glucose 97 Calcium 8.1 L Phosphorus 3.1 Magnesium 2.7 H Total Bilirubin 0.6 AST 33 ALT 34 Alkaline Phosphatase 88 Total Protein 5.5 L Albumin 2.9 L Quality VTE Prophylaxis VTE prophylaxis: mechanical ordered
--- NOTE | 2025-07-01 10:19 | P.PNUR_ITS ---
Progress Note: A&P Assessment and Plan (1) Gross hematuria: Code(s): R31.0 - Gross hematuria Status: Acute (2) UTI (urinary tract infection): Code(s): N39.0 - Urinary tract infection, site not specified Status: Acute Assessment and Plan: * Hematuria likely due to UTI +/- radiation cystitis * Continue CBI for now Plan -Hematuria likely due to UTI +/- radiation cystitis -Continue CBI for now as he continues to have significant hematuria -hgb is stable at 8.5 -if continues significant hematuria through the weekend, we will consider cysto + fulguration, possible Alum vs formalin instillation Subjective Subjective Date/Time Seen: 07/01/25 10:19 Interval history: NAEO, urine remains pin on slow-mod CBI, no significant clots, no pain. slowly feeling betetr HGB stable Review of Systems Review of Systems: All systems reviewed & are unremarkable except as noted in HPI and below Exam Const: General: no acute distress Eyes: General: appearance normal, both eyes and all related structures Resp: Effort & Inspection: normal respiratory effort GI: Inspection: non-distended Urinary Catheter: Urinary Catheter: patent and draining, urine clear (pink/blood tinged) and urine pink Neuro: Speech: normal speech Objective Data Vital Signs Vital Signs: Vital Signs - 24 hr 06/30/25 11:00 06/30/25 11:08 06/30/25 12:00 Temperature 36.6 C Pulse Rate 119 H 120 H 103 H Respiratory Rate 16 Blood Pressure 100/68 104/75 Pulse Oximetry 97 Oxygen Delivery Oxygen Flow Rate Fraction of Inspired Oxygen 06/30/25 12:00 06/30/25 12:00 06/30/25 12:00 Temperature 36.7 C Pulse Rate 105 H 108 H Respiratory Rate 25 H Blood Pressure 104/75 104/75 Pulse Oximetry 96 96 Oxygen Delivery Nasal Cannula Oxygen Flow Rate 1 Fraction of Inspired Oxygen 06/30/25 12:00 06/30/25 13:00 06/30/25 13:10 Temperature 36.5 C Pulse Rate 104 H 114 H 104 H Respiratory Rate 23 H Blood Pressure 126/83 126/83 Pulse Oximetry 96 Oxygen Delivery Oxygen Flow Rate Fraction of Inspired Oxygen 06/30/25 13:10 06/30/25 13:12 06/30/25 13:47 Temperature Pulse Rate 104 H 128 H 91 Respiratory Rate Blood Pressure 126/83 126/83 104/68 Pulse Oximetry Oxygen Delivery Oxygen Flow Rate Fraction of Inspired Oxygen 06/30/25 14:00 06/30/25 14:00 06/30/25 14:00 Temperature Pulse Rate 81 79 88 Respiratory Rate Blood Pressure 98/70 L 98/70 L Pulse Oximetry Oxygen Delivery Oxygen Flow Rate Fraction of Inspired Oxygen 06/30/25 14:00 06/30/25 14:23 06/30/25 14:29 Temperature 36.8 C Pulse Rate 82 87 86 Respiratory Rate 16 22 H 20 Blood Pressure 96/65 L Pulse Oximetry 96 Oxygen Delivery Oxygen Flow Rate Fraction of Inspired Oxygen 06/30/25 14:30 06/30/25 15:00 06/30/25 16:00 Temperature 36.4 C 36.8 C Pulse Rate 95 92 Respiratory Rate 20 16 Blood Pressure 103/69 98/67 L Pulse Oximetry 96 96 96 Oxygen Delivery Nasal Cannula Oxygen Flow Rate 1 Fraction of Inspired Oxygen 06/30/25 16:00 06/30/25 16:00 06/30/25 16:00 Temperature Pulse Rate 89 90 Respiratory Rate Blood Pressure 98/67 L 98/67 L Pulse Oximetry 96 Oxygen Delivery Nasal Cannula Oxygen Flow Rate 1 Fraction of Inspired Oxygen 06/30/25 16:00 06/30/25 17:00 06/30/25 17:39 Temperature Pulse Rate 81 86 85 Respiratory Rate 17 Blood Pressure 96/66 L Pulse Oximetry 98 Oxygen Delivery Oxygen Flow Rate Fraction of Inspired Oxygen 06/30/25 17:52 06/30/25 18:00 06/30/25 18:00 Temperature 36.6 C Pulse Rate 89 96 89 Respiratory Rate 20 Blood Pressure 106/69 103/73 103/73 Pulse Oximetry 98 Oxygen Delivery Oxygen Flow Rate Fraction of Inspired Oxygen 06/30/25 18:00 06/30/25 18:00 06/30/25 18:51 Temperature 36.5 C Pulse Rate 82 86 82 Respiratory Rate 19 Blood Pressure 103/73 102/68 Pulse Oximetry 94 Oxygen Delivery Oxygen Flow Rate Fraction of Inspired Oxygen 06/30/25 20:00 06/30/25 20:00 06/30/25 20:00 Temperature 36.8 C Pulse Rate 84 84 Respiratory Rate 15 Blood Pressure 114/66 114/66 Pulse Oximetry 99 99 Oxygen Delivery Nasal Cannula Oxygen Flow Rate 1 Fraction of Inspired Oxygen 06/30/25 20:00 06/30/25 20:00 06/30/25 20:17 Temperature Pulse Rate 84 83 84 Respiratory Rate 18 Blood Pressure 114/66 Pulse Oximetry Oxygen Delivery Oxygen Flow Rate Fraction of Inspired Oxygen 06/30/25 20:27 06/30/25 20:27 06/30/25 21:00 Temperature Pulse Rate 87 98 Respiratory Rate 20 19 Blood Pressure 110/70 Pulse Oximetry 96 96 Oxygen Delivery Nasal Cannula Oxygen Flow Rate 1 Fraction of Inspired Oxygen 06/30/25 22:00 06/30/25 22:00 06/30/25 22:00 Temperature Pulse Rate 93 93 93 Respiratory Rate 14 Blood Pressure 96/62 L 96/62 L 96/62 L Pulse Oximetry 96 Oxygen Delivery Oxygen Flow Rate Fraction of Inspired Oxygen 06/30/25 22:00 06/30/25 23:00 07/01/25 00:00 Temperature 36.3 C L Pulse Rate 93 91 96 Respiratory Rate 16 16 Blood Pressure 112/70 97/66 L Pulse Oximetry 97 96 Oxygen Delivery Oxygen Flow Rate Fraction of Inspired Oxygen 07/01/25 00:00 07/01/25 00:00 07/01/25 00:00 Temperature Pulse Rate 96 96 Respiratory Rate Blood Pressure 97/66 L 97/66 L Pulse Oximetry 96 Oxygen Delivery Nasal Cannula Oxygen Flow Rate 1 Fraction of Inspired Oxygen 07/01/25 00:00 07/01/25 01:00 07/01/25 01:13 Temperature Pulse Rate 97 94 93 Respiratory Rate 14 Blood Pressure 94/62 L 94/62 L Pulse Oximetry 97 Oxygen Delivery Oxygen Flow Rate Fraction of Inspired Oxygen 07/01/25 01:13 07/01/25 02:00 07/01/25 02:00 Temperature Pulse Rate 93 95 95 Respiratory Rate 18 Blood Pressure 94/62 L 102/58 L Pulse Oximetry 98 Oxygen Delivery Oxygen Flow Rate Fraction of Inspired Oxygen 07/01/25 02:00 07/01/25 02:00 07/01/25 02:23 Temperature Pulse Rate 95 91 77 Respiratory Rate 16 Blood Pressure 102/58 L 102/58 L Pulse Oximetry Oxygen Delivery Oxygen Flow Rate Fraction of Inspired Oxygen 07/01/25 02:32 07/01/25 03:00 07/01/25 04:00 Temperature Pulse Rate 89 101 H Respiratory Rate 14 19 Blood Pressure 96/58 L Pulse Oximetry 96 96 Oxygen Delivery Nasal Cannula Oxygen Flow Rate 1 Fraction of Inspired Oxygen 07/01/25 04:00 07/01/25 04:00 07/01/25 04:00 Temperature 36.4 C Pulse Rate 87 87 87 Respiratory Rate 12 Blood Pressure 114/67 114/67 114/67 Pulse Oximetry 97 Oxygen Delivery Oxygen Flow Rate Fraction of Inspired Oxygen 07/01/25 04:00 07/01/25 05:00 07/01/25 06:00 Temperature Pulse Rate 94 85 86 Respiratory Rate 12 12 Blood Pressure 104/64 106/62 Pulse Oximetry 98 98 Oxygen Delivery Oxygen Flow Rate Fraction of Inspired Oxygen 07/01/25 06:00 07/01/25 06:00 07/01/25 06:00 Temperature Pulse Rate 86 86 86 Respiratory Rate Blood Pressure 106/62 106/62 Pulse Oximetry Oxygen Delivery Oxygen Flow Rate Fraction of Inspired Oxygen 07/01/25 07:00 07/01/25 08:00 07/01/25 08:11 Temperature 36.8 C Pulse Rate 89 100 Respiratory Rate 15 20 Blood Pressure 119/81 114/71 Pulse Oximetry 97 97 Oxygen Delivery Oxygen Flow Rate Fraction of Inspired Oxygen 07/01/25 09:00 07/01/25 09:00 07/01/25 09:05 Temperature Pulse Rate 87 88 88 Respiratory Rate 24 H 20 20 Blood Pressure Pulse Oximetry 98 97 Oxygen Delivery Nasal Cannula Oxygen Flow Rate 1 Fraction of Inspired Oxygen 24 07/01/25 09:14 07/01/25 10:00 Temperature 36.6 C Pulse Rate 89 98 Respiratory Rate 20 21 H Blood Pressure 131/79 Pulse Oximetry 98 Oxygen Delivery Oxygen Flow Rate Fraction of Inspired Oxygen Intake/Output Intake/Output: Intake & Output 06/28/25 06/29/25 06/30/25 07/01/25 23:59 23:59 23:59 23:59 Intake Total 21804.3 30083.2 4289.4 85297.7 Output Total 9300 87026 8950 24030 Balance 1227.3 -882.8 -4660.6 -1645.3 Meds/Results Medications: Active Medications Generic Name Dose Route Start Last Admin Trade Name Freq PRN Reason Stop Dose Admin Acetaminophen 650 mg 06/28/25 01:26 Acetaminophen 650 Mg Suppository RECTAL Q6H PRN Mild Pain (1-3) or Fever Acetaminophen 650 mg 06/29/25 10:38 06/30/25 20:52 Acetaminophen 325 Mg Tablet PO 650 mg Q4H PRN Administration Mild Pain (1-3) or Fever Norepinephrine Bitartrate 8 mg in 250 mls @ 0 mls/hr 06/28/25 13:15 07/01/25 06:00 Levophed 8 Mg/D5w 250 Ml IV CONT 0 mcg/min .Q0M EUGENIO 0 mls/hr Protocol Titration 0 MCG/MIN Diltiazem HCl 100 mg in 100 mls @ 7.5 mls/hr 06/28/25 21:10 07/01/25 06:00 Cardizem 100 Mg/100 Ml IV CONT 7.5 mg/hr .[id number] EUGENIO 7.5 mls/hr Protocol Titration 7.5 MG/HR Meropenem 1 gm/ Sodium 100 mls @ 200 mls/hr 06/29/25 08:30 07/01/25 08:14 Chloride IVPB 200 mls/hr Q12HR EUGENIO Administration Ipratropium [place] 0.5 mg 06/30/25 14:00 07/01/25 09:05 Ipratropium Br 0.02% Inh Soln 0.5 Mg/2.5 Ml Vial INHALATION 0.5 mg Q6HRT EUGENIO Administration Latanoprost 1 drop 06/28/25 21:00 06/30/25 20:53 Latanoprost 0.005% Op Soln 2.5 Ml Btl EACH EYE 1 drop HS EUGENIO Administration Levalbuterol HCl 0.63 mg 06/30/25 14:00 07/01/25 09:05 Levalbuterol Neb 1.25 Mg/3 Ml INHALATION 0.63 mg Q6HRT EUGENIO Administration Ondansetron HCl 4 mg 06/28/25 13:33 06/30/25 12:00 Ondansetron Inj 4 Mg/2 Ml Vial IV PUSH 4 mg Q4H PRN Administration Nausea And Vomiting Sodium Chloride 10 ml 06/28/25 14:00 07/01/25 06:50 Central Line Flush IV PUSH 10 ml Q8HR EUGENIO Administration Sodium Chloride 10 ml 06/28/25 13:03 Central Line Flush IV PUSH PRN PRN with TPN bag changes Sodium Chloride 20 ml 06/28/25 13:03 Central Line Flush IV PUSH PRN PRN after blood draws Radiology Results: ITS Impressions Head CT 06/27/25 21:22 IMPRESSION: No acute intracranial hemorrhage or extra axial fluid collections. All CT scans at this facility are performed using low dose modulation techniques as appropriate to perform exam including the following: automated exposure control; use of iterative reconstruction technique; adjustment of the m A and/or kV according to patient size (this includes techniques or standardized protocols for targeted exams where dose is matched to indication/reason for exam). Chest/Abdomen/Pelvis CTA 06/27/25 22:00 IMPRESSION: 1. Hyperdense soft tissue of the bladder lumen, likely blood clot. [place] catheter present in the bladder lumen. 2: No evidence for aortic aneurysm or dissection. 3: Stenosis of the celiac axis, SMA and renal arteries. Carotid Doppler Study 06/28/25 20:17 IMPRESSION: 1. Less than 50% stenosis in the right internal carotid artery by sonographic criteria. 2. Less than 50% stenosis in the left internal carotid artery by sonographic criteria. Chest X-Ray 06/29/25 08:14 Impression: Mild CHF Labs Labs: Laboratory Results - last 24 hr 07/01/25 04:15 WBC 30.9 H RBC 2.84 L Hgb 8.6 L Hct 26.0 L MCV 91.5 MCH 30.3 MCHC 33.1 RDW 15.9 H Plt Count 82 L MPV 10.1 Immature Gran % (Auto) Not Reportable Neut % (Auto) Not Reportable Lymph % (Auto) Not Reportable Emanuel % (Auto) Not Reportable Eos % (Auto) Not Reportable Baso % (Auto) Not Reportable Lymph # (Auto) Not Reportable Emanuel # (Auto) Not Reportable Eos # (Auto) Not Reportable Baso # (Auto) Not Reportable Abs Immat Gran (auto) Not Reportable Absolute Neuts (auto) Not Reportable Absolute Nucleated RBC Not Reportable Total Counted 100 Neutrophils % (Manual) 94 H Band Neutrophils % 4 Lymphocytes % (Manual) 1.0 L Monocytes % (Manual) 1 L Nucleated RBC % Not Reportable Abs Neuts (Manual) 30.28 H Abs Lymphs (Manual) 0.30 L Abs Monocytes (Manual) 0.30 Platelet Estimate Decreased % Immature Plt Fraction 3.1 Anisocytosis 1+ Schistocytes None seen Sodium 134 L Potassium 3.7 Chloride 102 Carbon Dioxide 25 Anion Gap 7 BUN 45 H Creatinine 1.77 H Estim Creat Clear Calc 26 Estimated GFR 37 L Glucose 97 Calcium 8.1 L Phosphorus 3.1 Magnesium 2.7 H Total Bilirubin 0.6 AST 33 ALT 34 Alkaline Phosphatase 88 Total Protein 5.5 L Albumin 2.9 L
--- NOTE | 2025-07-01 13:24 | P.PNNP_ITS ---
Progress Note: A&P Assessment and Plan (1) Acute kidney injury: Code(s): N17.9 - Acute kidney failure, unspecified Status: Acute Assessment and Plan: * as noted by trend of labs on 06/28 (1.01mg/dl --> 1.39mg/dl) * normal creatinine at baseline as of 3 months ago (March 2025) * suspect multifactorial etiology: * urinary obstruction (with clot) * hypotension/shock * infection/sepsis * contrast exposure (CTA on 06/27) * prerenal factors * CARLOS-I use prior to admission * relative anemia * other(?) * s/p IVF resuscitation (on hold due to concerns of volume overload) * urine studies difficult to interpret with ongoing CBI * CT imaging without obstruction * creatinine is slowly improving (2) Septic shock: Code(s): A41.9 - Sepsis, unspecified organism; R65.21 - Severe sepsis with septic shock Status: Acute Assessment and Plan: * presumably due to UTI complicated by blood loss anemia * noted elevated lactic acid and procalcitonin * s/p IVF resuscitation and PRBC transfusion * on vasopressor support. Down to 2 mics of norepi * follow culture data: * blood cultures (06/27) with GNB /Proteus * urine culture not done * on meropenem (3) UTI (urinary tract infection): Code(s): N39.0 - Urinary tract infection, site not specified Status: Acute Assessment and Plan: * suspected by admission UA * however, no urine culture done * on antibiotics as above (4) Paroxysmal A-fib: Code(s): I48.0 - Paroxysmal atrial fibrillation Status: Acute Assessment and Plan: * attempting rate control strategy * on cardizem gtt * digoxin added * * anticoagulation on hold due to hematuria/anemia * Cardiology following with recommendations noted (5) Hematuria: Code(s): R31.9 - Hematuria, unspecified Status: Acute Assessment and Plan: * persistent hematuria 4 weeks * Urology following: * s/p armstrong catheter placement/exchange on admission * on CBI * 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 Subjective Date/time seen: 07/01/25 13:24 Interval history: [place] is feeling a little better. Appetite is returning but not baseline Exam Narrative: General: elderly but WD/WN male in NAD Heart: IRRR, normal S1 and S2; no rub Lungs: coarse and decreased at bases Abdomen: soft, nontender, nondistended, positive bowel sounds Extremities: no cyanosis or clubbing; trace edema Skin: warm and dry Objective Data Vital Signs Vital Signs: Vital Signs - 24 hr 06/30/25 13:47 06/30/25 14:00 06/30/25 14:00 Temperature Pulse Rate 91 81 79 Respiratory Rate Blood Pressure 104/68 98/70 L 98/70 L Pulse Oximetry Oxygen Delivery Oxygen Flow Rate Fraction of Inspired Oxygen 06/30/25 14:00 06/30/25 14:00 06/30/25 14:23 Temperature 98.2 F Pulse Rate 88 82 87 Respiratory Rate 16 22 H Blood Pressure 96/65 L Pulse Oximetry 96 Oxygen Delivery Oxygen Flow Rate Fraction of Inspired Oxygen 06/30/25 14:29 06/30/25 14:30 06/30/25 15:00 Temperature 97.6 F Pulse Rate 86 95 Respiratory Rate 20 20 Blood Pressure 103/69 Pulse Oximetry 96 96 Oxygen Delivery Nasal Cannula Oxygen Flow Rate 1 Fraction of Inspired Oxygen 06/30/25 16:00 06/30/25 16:00 06/30/25 16:00 Temperature 98.3 F Pulse Rate 92 89 90 Respiratory Rate 16 Blood Pressure 98/67 L 98/67 L 98/67 L Pulse Oximetry 96 Oxygen Delivery Oxygen Flow Rate Fraction of Inspired Oxygen 06/30/25 16:00 06/30/25 16:00 06/30/25 17:00 Temperature Pulse Rate 81 86 Respiratory Rate 17 Blood Pressure 96/66 L Pulse Oximetry 96 98 Oxygen Delivery Nasal Cannula Oxygen Flow Rate 1 Fraction of Inspired Oxygen 06/30/25 17:39 06/30/25 17:52 06/30/25 18:00 Temperature 98 F Pulse Rate 85 89 96 Respiratory Rate 20 Blood Pressure 106/69 103/73 Pulse Oximetry 98 Oxygen Delivery Oxygen Flow Rate Fraction of Inspired Oxygen 06/30/25 18:00 06/30/25 18:00 06/30/25 18:00 Temperature Pulse Rate 89 82 86 Respiratory Rate Blood Pressure 103/73 103/73 Pulse Oximetry Oxygen Delivery Oxygen Flow Rate Fraction of Inspired Oxygen 06/30/25 18:51 06/30/25 20:00 06/30/25 20:00 Temperature 97.7 F 98.3 F Pulse Rate 82 84 84 Respiratory Rate 19 15 Blood Pressure 102/68 114/66 114/66 Pulse Oximetry 94 99 Oxygen Delivery Oxygen Flow Rate Fraction of Inspired Oxygen 06/30/25 20:00 06/30/25 20:00 06/30/25 20:00 Temperature Pulse Rate 84 83 Respiratory Rate Blood Pressure 114/66 Pulse Oximetry 99 Oxygen Delivery Nasal Cannula Oxygen Flow Rate 1 Fraction of Inspired Oxygen 06/30/25 20:17 06/30/25 20:27 06/30/25 20:27 Temperature Pulse Rate 84 87 Respiratory Rate 18 20 Blood Pressure Pulse Oximetry 96 Oxygen Delivery Nasal Cannula Oxygen Flow Rate 1 Fraction of Inspired Oxygen 06/30/25 21:00 06/30/25 22:00 06/30/25 22:00 Temperature Pulse Rate 98 93 93 Respiratory Rate 19 14 Blood Pressure 110/70 96/62 L 96/62 L Pulse Oximetry 96 96 Oxygen Delivery Oxygen Flow Rate Fraction of Inspired Oxygen 06/30/25 22:00 06/30/25 22:00 06/30/25 23:00 Temperature Pulse Rate 93 93 91 Respiratory Rate 16 Blood Pressure 96/62 L 112/70 Pulse Oximetry 97 Oxygen Delivery Oxygen Flow Rate Fraction of Inspired Oxygen 07/01/25 00:00 07/01/25 00:00 07/01/25 00:00 Temperature 97.3 F L Pulse Rate 96 96 Respiratory Rate 16 Blood Pressure 97/66 L 97/66 L Pulse Oximetry 96 96 Oxygen Delivery Nasal Cannula Oxygen Flow Rate 1 Fraction of Inspired Oxygen 07/01/25 00:00 07/01/25 00:00 07/01/25 01:00 Temperature Pulse Rate 96 97 94 Respiratory Rate 14 Blood Pressure 97/66 L 94/62 L Pulse Oximetry 97 Oxygen Delivery Oxygen Flow Rate Fraction of Inspired Oxygen 07/01/25 01:13 07/01/25 01:13 07/01/25 02:00 Temperature Pulse Rate 93 93 95 Respiratory Rate 18 Blood Pressure 94/62 L 94/62 L 102/58 L Pulse Oximetry 98 Oxygen Delivery Oxygen Flow Rate Fraction of Inspired Oxygen 07/01/25 02:00 07/01/25 02:00 07/01/25 02:00 Temperature Pulse Rate 95 95 91 Respiratory Rate Blood Pressure 102/58 L 102/58 L Pulse Oximetry Oxygen Delivery Oxygen Flow Rate Fraction of Inspired Oxygen 07/01/25 02:23 07/01/25 02:32 07/01/25 03:00 Temperature Pulse Rate 77 89 101 H Respiratory Rate 16 14 19 Blood Pressure 96/58 L Pulse Oximetry 96 Oxygen Delivery Oxygen Flow Rate Fraction of Inspired Oxygen 07/01/25 04:00 07/01/25 04:00 07/01/25 04:00 Temperature 97.6 F Pulse Rate 87 87 Respiratory Rate 12 Blood Pressure 114/67 114/67 Pulse Oximetry 96 97 Oxygen Delivery Nasal Cannula Oxygen Flow Rate 1 Fraction of Inspired Oxygen 07/01/25 04:00 07/01/25 04:00 07/01/25 05:00 Temperature Pulse Rate 87 94 85 Respiratory Rate 12 Blood Pressure 114/67 104/64 Pulse Oximetry 98 Oxygen Delivery Oxygen Flow Rate Fraction of Inspired Oxygen 07/01/25 06:00 07/01/25 06:00 07/01/25 06:00 Temperature Pulse Rate 86 86 86 Respiratory Rate 12 Blood Pressure 106/62 106/62 106/62 Pulse Oximetry 98 Oxygen Delivery Oxygen Flow Rate Fraction of Inspired Oxygen 07/01/25 06:00 07/01/25 07:00 07/01/25 08:00 Temperature 98.2 F Pulse Rate 86 89 100 Respiratory Rate 15 20 Blood Pressure 119/81 Pulse Oximetry 97 97 Oxygen Delivery Oxygen Flow Rate Fraction of Inspired Oxygen 07/01/25 08:00 07/01/25 08:00 07/01/25 08:00 Temperature Pulse Rate 90 99 Respiratory Rate Blood Pressure 114/71 Pulse Oximetry 98 Oxygen Delivery Nasal Cannula Oxygen Flow Rate 1 Fraction of Inspired Oxygen 07/01/25 08:11 07/01/25 09:00 07/01/25 09:00 Temperature Pulse Rate 87 88 Respiratory Rate 24 H 20 Blood Pressure 114/71 Pulse Oximetry 98 97 Oxygen Delivery Nasal Cannula Oxygen Flow Rate 1 Fraction of Inspired Oxygen 24 07/01/25 09:05 07/01/25 09:14 07/01/25 09:40 Temperature Pulse Rate 88 89 Respiratory Rate 20 20 Blood Pressure Pulse Oximetry 96 Oxygen Delivery Room Air Oxygen Flow Rate Fraction of Inspired Oxygen 21 07/01/25 10:00 07/01/25 10:00 07/01/25 10:00 Temperature 97.8 F Pulse Rate 98 111 H 111 H Respiratory Rate 21 H Blood Pressure 131/79 131/79 Pulse Oximetry 98 Oxygen Delivery Oxygen Flow Rate Fraction of Inspired Oxygen 07/01/25 10:15 07/01/25 11:00 07/01/25 12:00 Temperature 97.7 F Pulse Rate 97 85 Respiratory Rate 19 19 Blood Pressure 114/74 Pulse Oximetry 96 98 Oxygen Delivery Room Air Oxygen Flow Rate Fraction of Inspired Oxygen 07/01/25 12:00 07/01/25 12:00 07/01/25 12:00 Temperature Pulse Rate 102 H 97 Respiratory Rate Blood Pressure 109/77 Pulse Oximetry 98 Oxygen Delivery Room Air Oxygen Flow Rate Fraction of Inspired Oxygen 07/01/25 12:04 07/01/25 13:00 Temperature Pulse Rate 85 Respiratory Rate 20 Blood Pressure 109/77 109/71 Pulse Oximetry 92 Oxygen Delivery Oxygen Flow Rate Fraction of Inspired Oxygen Intake/Output Intake/Output: Intake & Output 06/28/25 06/29/25 06/30/25 07/01/25 23:59 23:59 23:59 23:59 Intake Total 23193.3 51765.2 4289.4 07805.7 Output Total 9300 86893 8950 32672 Balance 1227.3 -882.8 -4660.6 -1160.3 Meds/Results Medications: Active Medications Generic Name Dose Route Start Last Admin Trade Name Freq PRN Reason Stop Dose Admin Acetaminophen 650 mg 06/28/25 01:26 Acetaminophen 650 Mg Suppository RECTAL Q6H PRN Mild Pain (1-3) or Fever Acetaminophen 650 mg 06/29/25 10:38 06/30/25 20:52 Acetaminophen 325 Mg Tablet PO 650 mg Q4H PRN Administration Mild Pain (1-3) or Fever Norepinephrine Bitartrate 8 mg in 250 mls @ 0 mls/hr 06/28/25 13:15 07/01/25 06:00 Levophed 8 Mg/D5w 250 Ml IV CONT 0 mcg/min .Q0M EUGENIO 0 mls/hr Protocol Titration 0 MCG/MIN Diltiazem HCl 100 mg in 100 mls @ 7.5 mls/hr 06/28/25 21:10 07/01/25 12:00 Cardizem 100 Mg/100 Ml IV CONT 7.5 mg/hr .[id number] EUGENIO 7.5 mls/hr Protocol Titration 7.5 MG/HR Meropenem 1 gm/ Sodium 100 mls @ 200 mls/hr 06/29/25 08:30 07/01/25 08:14 Chloride IVPB 200 mls/hr Q12HR EUGENIO Administration Ipratropium [place] 0.5 mg 06/30/25 14:00 07/01/25 09:05 Ipratropium Br 0.02% Inh Soln 0.5 Mg/2.5 Ml Vial INHALATION 0.5 mg Q6HRT EUGENIO Administration Latanoprost 1 drop 06/28/25 21:00 06/30/25 20:53 Latanoprost 0.005% Op Soln 2.5 Ml Btl EACH EYE 1 drop HS EUGENIO Administration Levalbuterol HCl 0.63 mg 06/30/25 14:00 07/01/25 09:05 Levalbuterol Neb 1.25 Mg/3 Ml INHALATION 0.63 mg Q6HRT EUGENIO Administration Ondansetron HCl 4 mg 06/28/25 13:33 06/30/25 12:00 Ondansetron Inj 4 Mg/2 Ml Vial IV PUSH 4 mg Q4H PRN Administration Nausea And Vomiting Sodium Chloride 10 ml 06/28/25 14:00 07/01/25 06:50 Central Line Flush IV PUSH 10 ml Q8HR EUGENIO Administration Sodium Chloride 10 ml 06/28/25 13:03 Central Line Flush IV PUSH PRN PRN with TPN bag changes Sodium Chloride 20 ml 06/28/25 13:03 Central Line Flush IV PUSH PRN PRN after blood draws Radiology Results: ITS Impressions Head CT 06/27/25 21:22 IMPRESSION: No acute intracranial hemorrhage or extra axial fluid collections. All CT scans at this facility are performed using low dose modulation techniques as appropriate to perform exam including the following: automated exposure control; use of iterative reconstruction technique; adjustment of the mA and/or kV according to patient size (this includes techniques or standardized protocols for targeted exams where dose is matched to indication/reason for exam). Chest/Abdomen/Pelvis CTA 06/27/25 22:00 IMPRESSION: 1. Hyperdense soft tissue of the bladder lumen, likely blood clot. Armstrong catheter present in the bladder lumen. 2: No evidence for aortic aneurysm or dissection. 3: Stenosis of the celiac axis, SMA and renal arteries. Carotid Doppler Study 06/28/25 20:17 IMPRESSION: 1. Less than 50% stenosis in the right internal carotid artery by sonographic criteria. 2. Less than 50% stenosis in the left internal carotid artery by sonographic criteria. Chest X-Ray 06/29/25 08:14 Impression: Mild CHF Labs Labs: Laboratory Results - last 24 hr 07/01/25 04:15 WBC 30.9 H RBC 2.84 L Hgb 8.6 L Hct 26.0 L MCV 91.5 MCH 30.3 MCHC 33.1 RDW 15.9 H Plt Count 82 L MPV 10.1 Immature Gran % (Auto) Not Reportable Neut % (Auto) Not Reportable Lymph % (Auto) Not Reportable [place] % (Auto) Not Reportable Eos % (Auto) Not Reportable Baso % (Auto) Not Reportable Lymph # (Auto) Not Reportable [place] # (Auto) Not Reportable Eos # (Auto) Not Reportable Baso # (Auto) Not Reportable Abs Immat Gran (auto) Not Reportable Absolute Neuts (auto) Not Reportable Absolute Nucleated RBC Not Reportable Total Counted 100 Neutrophils % (Manual) 94 H Band Neutrophils % 4 Lymphocytes % (Manual) 1.0 L Monocytes % (Manual) 1 L Nucleated RBC % Not Reportable Abs Neuts (Manual) 30.28 H Abs Lymphs (Manual) 0.30 L Abs Monocytes (Manual) 0.30 Platelet Estimate Decreased % Immature Plt Fraction 3.1 Anisocytosis 1+ Schistocytes None seen Sodium 134 L Potassium 3.7 Chloride 102 Carbon Dioxide 25 Anion Gap 7 BUN 45 H Creatinine 1.77 H Estim Creat Clear Calc 26 Estimated GFR 37 L Glucose 97 Calcium 8.1 L Phosphorus 3.1 Magnesium 2.7 H Total Bilirubin 0.6 AST 33 ALT 34 Alkaline Phosphatase 88 Total Protein 5.5 L Albumin 2.9 L
--- NOTE | 2025-07-01 14:52 | P.PNCA_ITS ---
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 Elevated cardiac troponin T in absence of chest pain OR ischemic ST changes on EKG suggestive of non ST segment elevation myocardial infarction. Patient has significant anemia and elevated creatinine which is contributing to this type 2, non thrombotic myocardial injury. 2. Known history of prostate cancer. Status post the prostate procedure no followed by removal of catheter and patient has hematuria with clots. 3. History of paroxysmal atrial fibrillation. EKG reveals normal sinus rhythm on admission. Patient is on apixaban as well as aspirin at home. 4. Acute blood loss anemia with hemoglobin as low as 8.0. 5. Sepsis with mental status changes. Elevated WBC count. Patient apparently fall at home without any memory of the event 6. Chronic 3B kidney failure. Creatinine is 1.94 with GFR of 33. 7. Hypotension on admission. Blood pressure does remain low and most recent is 95/68 mm of mercury with heart rate of 132 per minute. 8. Paroxysmal atrial fibrillation with rapid ventricular response noted this morning. EKG this morning shows atrial fibrillation with heart rate 172 per minute. Recommendations: 1. REGARDING HIS ATRIAL FIBRILLATION, CURRENTLY RATE CONTROLLED ON DILTIAZEM DRIP. THIS WILL BE CONTINUED FOR NOW. 2. OKAY TO TRANSFER TO IMU 3. . Not a candidate for systemic anticoagulation AT THIS POINT BECAUSE OF HEMATURIA. LONG-TERM, CONSIDER LEFT ATRIAL APPENDAGE OCCLUDING DEVICE 4. Hold anticoagulation and aspirin for now. LIKELY TRANSITION BACK TO HIS ORAL METOPROLOL TOMORROW AND DC DILTIAZEM Subjective Date/time seen: 07/01/25 14:52 Interval history: The patient is 85-year-old male admitted on 06/27/2025 with the complaints of weakness and hematuria with clots. Patient has known history of atrial fibrillation, hypertension and prostate cancer as well as Navarro and esophageal reflux disease DATE OF SERVICE 07/01/2025: MORE STABLE TODAY. OFF LEVOPHED. NO CHEST PAIN OR SHORTNESS OF BREATH. HEART RATE IS CONTROLLED ON IV DILTIAZEM Review of Systems Review of Systems: All systems reviewed & are unremarkable except as noted in HPI and below Constitutional: Constitutional: Denies difficulty sleeping ENT: Reports Normal hearing present Cardiovascular: Cardiovascular: Denies chest pain Respiratory: Respiratory: Denies dyspnea Genitourinary: Genitourinary: Reports hematuria Exam Narrative: AWAKE ALERT. APPEARS STATED AGE Const: General: comfortable and no acute distress HENMT: Face/Nose/Sinus: Normal nares present Mouth: Yes moist mucous membranes Eyes: Sclera: sclerae normal Neck: Neck: supple and no JVD Resp: Effort & Inspection: normal respiratory effort Auscultation: clear to auscultation bilaterally Cardio: Rate: regular rate Rhythm: abnormal rhythm irregularly irregular GI: Inspection: non-distended GI Palp: Yes Soft to palpation Auscultation: normal bowel sounds Urinary Catheter: Urinary Catheter: patent and draining and urine red Skin: General skin exam: normal color Neuro: Speech: normal speech Extrem: General: normal to inspection Psych: Affect: normal affect Objective Data Vital Signs Vital Signs: Vital Signs - 24 hr 06/30/25 15:00 06/30/25 16:00 06/30/25 16:00 Temperature 36.4 C 36.8 C Pulse Rate 95 92 89 Respiratory Rate 20 16 Blood Pressure 103/69 98/67 L 98/67 L Pulse Oximetry 96 96 Oxygen Delivery Oxygen Flow Rate Fraction of Inspired Oxygen 06/30/25 16:00 06/30/25 16:00 06/30/25 16:00 Temperature Pulse Rate 90 81 Respiratory Rate Blood Pressure 98/67 L Pulse Oximetry 96 Oxygen Delivery Nasal Cannula Oxygen Flow Rate 1 Fraction of Inspired Oxygen 06/30/25 17:00 06/30/25 17:39 06/30/25 17:52 Temperature Pulse Rate 86 85 89 Respiratory Rate 17 Blood Pressure 96/66 L 106/69 Pulse Oximetry 98 Oxygen Delivery Oxygen Flow Rate Fraction of Inspired Oxygen 06/30/25 18:00 06/30/25 18:00 06/30/25 18:00 Temperature 36.6 C Pulse Rate 96 89 82 Respiratory Rate 20 Blood Pressure 103/73 103/73 103/73 Pulse Oximetry 98 Oxygen Delivery Oxygen Flow Rate Fraction of Inspired Oxygen 06/30/25 18:00 06/30/25 18:51 06/30/25 20:00 Temperature 36.5 C 36.8 C Pulse Rate 86 82 84 Respiratory Rate 19 15 Blood Pressure 102/68 114/66 Pulse Oximetry 94 99 Oxygen Delivery Oxygen Flow Rate Fraction of Inspired Oxygen 06/30/25 20:00 06/30/25 20:00 06/30/25 20:00 Temperature Pulse Rate 84 84 Respiratory Rate Blood Pressure 114/66 114/66 Pulse Oximetry 99 Oxygen Delivery Nasal Cannula Oxygen Flow Rate 1 Fraction of Inspired Oxygen 06/30/25 20:00 06/30/25 20:17 06/30/25 20:27 Temperature Pulse Rate 83 84 87 Respiratory Rate 18 20 Blood Pressure Pulse Oximetry Oxygen Delivery Oxygen Flow Rate Fraction of Inspired Oxygen 06/30/25 20:27 06/30/25 21:00 06/30/25 22:00 Temperature Pulse Rate 98 93 Respiratory Rate 19 14 Blood Pressure 110/70 96/62 L Pulse Oximetry 96 96 96 Oxygen Delivery Nasal Cannula Oxygen Flow Rate 1 Fraction of Inspired Oxygen 06/30/25 22:00 06/30/25 22:00 06/30/25 22:00 Temperature Pulse Rate 93 93 93 Respiratory Rate Blood Pressure 96/62 L 96/62 L Pulse Oximetry Oxygen Delivery Oxygen Flow Rate Fraction of Inspired Oxygen 06/30/25 23:00 07/01/25 00:00 07/01/25 00:00 Temperature 36.3 C L Pulse Rate 91 96 96 Respiratory Rate 16 16 Blood Pressure 112/70 97/66 L 97/66 L Pulse Oximetry 97 96 Oxygen Delivery Oxygen Flow Rate Fraction of Inspired Oxygen 07/01/25 00:00 07/01/25 00:00 07/01/25 00:00 Temperature Pulse Rate 96 97 Respiratory Rate Blood Pressure 97/66 L Pulse Oximetry 96 Oxygen Delivery Nasal Cannula Oxygen Flow Rate 1 Fraction of Inspired Oxygen 07/01/25 01:00 07/01/25 01:13 07/01/25 01:13 Temperature Pulse Rate 94 93 93 Respiratory Rate 14 Blood Pressure 94/62 L 94/62 L 94/62 L Pulse Oximetry 97 Oxygen Delivery Oxygen Flow Rate Fraction of Inspired Oxygen 07/01/25 02:00 07/01/25 02:00 07/01/25 02:00 Temperature Pulse Rate 95 95 95 Respiratory Rate 18 Blood Pressure 102/58 L 102/58 L Pulse Oximetry 98 Oxygen Delivery Oxygen Flow Rate Fraction of Inspired Oxygen 07/01/25 02:00 07/01/25 02:23 07/01/25 02:32 Temperature Pulse Rate 91 77 89 Respiratory Rate 16 14 Blood Pressure 102/58 L Pulse Oximetry Oxygen Delivery Oxygen Flow Rate Fraction of Inspired Oxygen 07/01/25 03:00 07/01/25 04:00 07/01/25 04:00 Temperature 36.4 C Pulse Rate 101 H 87 Respiratory Rate 19 12 Blood Pressure 96/58 L 114/67 Pulse Oximetry 96 96 97 Oxygen Delivery Nasal Cannula Oxygen Flow Rate 1 Fraction of Inspired Oxygen 07/01/25 04:00 07/01/25 04:00 07/01/25 04:00 Temperature Pulse Rate 87 87 94 Respiratory Rate Blood Pressure 114/67 114/67 Pulse Oximetry Oxygen Delivery Oxygen Flow Rate Fraction of Inspired Oxygen 07/01/25 05:00 07/01/25 06:00 07/01/25 06:00 Temperature Pulse Rate 85 86 86 Respiratory Rate 12 12 Blood Pressure 104/64 106/62 106/62 Pulse Oximetry 98 98 Oxygen Delivery Oxygen Flow Rate Fraction of Inspired Oxygen 07/01/25 06:00 07/01/25 06:00 07/01/25 07:00 Temperature Pulse Rate 86 86 89 Respiratory Rate 15 Blood Pressure 106/62 119/81 Pulse Oximetry 97 Oxygen Delivery Oxygen Flow Rate Fraction of Inspired Oxygen 07/01/25 08:00 07/01/25 08:00 07/01/25 08:00 Temperature 36.8 C Pulse Rate 100 90 Respiratory Rate 20 Blood Pressure 114/71 Pulse Oximetry 97 98 Oxygen Delivery Nasal Cannula Oxygen Flow Rate 1 Fraction of Inspired Oxygen 07/01/25 08:00 07/01/25 08:00 07/01/25 08:11 Temperature Pulse Rate 99 100 Respiratory Rate Blood Pressure 114/71 114/71 Pulse Oximetry Oxygen Delivery Oxygen Flow Rate Fraction of Inspired Oxygen 07/01/25 09:00 07/01/25 09:00 07/01/25 09:05 Temperature Pulse Rate 87 88 88 Respiratory Rate 24 H 20 20 Blood Pressure Pulse Oximetry 98 97 Oxygen Delivery Nasal Cannula Oxygen Flow Rate 1 Fraction of Inspired Oxygen 24 07/01/25 09:14 07/01/25 09:40 07/01/25 10:00 Temperature 36.6 C Pulse Rate 89 98 Respiratory Rate 20 21 H Blood Pressure 131/79 Pulse Oximetry 96 98 Oxygen Delivery Room Air Oxygen Flow Rate Fraction of Inspired Oxygen 21 07/01/25 10:00 07/01/25 10:00 07/01/25 10:00 Temperature Pulse Rate 111 H 111 H 98 Respiratory Rate Blood Pressure 131/79 131/79 Pulse Oximetry Oxygen Delivery Oxygen Flow Rate Fraction of Inspired Oxygen 07/01/25 10:15 07/01/25 11:00 07/01/25 12:00 Temperature 36.5 C Pulse Rate 97 85 Respiratory Rate 19 19 Blood Pressure 114/74 Pulse Oximetry 96 98 Oxygen Delivery Room Air Oxygen Flow Rate Fraction of Inspired Oxygen 07/01/25 12:00 07/01/25 12:00 07/01/25 12:00 Temperature Pulse Rate 102 H 97 Respiratory Rate Blood Pressure 109/77 Pulse Oximetry 98 Oxygen Delivery Room Air Oxygen Flow Rate Fraction of Inspired Oxygen 07/01/25 12:00 07/01/25 12:04 07/01/25 13:00 Temperature Pulse Rate 85 85 Respiratory Rate 20 Blood Pressure 109/77 109/77 109/71 Pulse Oximetry 92 Oxygen Delivery Oxygen Flow Rate Fraction of Inspired Oxygen 07/01/25 14:00 07/01/25 14:00 07/01/25 14:00 Temperature Pulse Rate 88 88 88 Respiratory Rate 18 Blood Pressure 122/71 122/71 122/71 Pulse Oximetry Oxygen Delivery Oxygen Flow Rate Fraction of Inspired Oxygen 07/01/25 14:05 07/01/25 14:37 Temperature 36.7 C Pulse Rate 100 Respiratory Rate 20 Blood Pressure Pulse Oximetry Oxygen Delivery Oxygen Flow Rate Fraction of Inspired Oxygen Intake/Output Intake/Output: Intake & Output 06/28/25 06/29/25 06/30/25 07/01/25 23:59 23:59 23:59 23:59 Intake Total 07134.3 53453.2 4289.4 06485.7 Output Total 9300 44072 8950 19557 Balance 1227.3 -882.8 -4660.6 -1145.3 Meds/Results Medications: Active Medications Generic Name Dose Route Start Last Admin Trade Name Freq PRN Reason Stop Dose Admin Acetaminophen 650 mg 06/28/25 01:26 Acetaminophen 650 Mg Suppository RECTAL Q6H PRN Mild Pain (1-3) or Fever Acetaminophen 650 mg 06/29/25 10:38 06/30/25 20:52 Acetaminophen 325 Mg Tablet PO 650 mg Q4H PRN Administration Mild Pain (1-3) or Fever Diltiazem HCl 100 mg in 100 mls @ 7.5 mls/hr 06/28/25 21:10 07/01/25 14:00 Cardizem 100 Mg/100 Ml IV CONT 7.5 mg/hr .[id number] EUGENIO 7.5 mls/hr Protocol Titration 7.5 MG/HR Meropenem 1 gm/ Sodium 100 mls @ 200 mls/hr 06/29/25 08:30 07/01/25 08:14 Chloride IVPB 200 mls/hr Q12HR EUGENIO Administration Ipratropium [place] 0.5 mg 06/30/25 14:00 07/01/25 14:04 Ipratropium Br 0.02% Inh Soln 0.5 Mg/2.5 Ml Vial INHALATION 0.5 mg Q6HRT EUGENIO Administration Latanoprost 1 drop 06/28/25 21:00 06/30/25 20:53 Latanoprost 0.005% Op Soln 2.5 Ml Btl EACH EYE 1 drop HS EUGENIO Administration Levalbuterol HCl 0.63 mg 06/30/25 14:00 07/01/25 14:04 Levalbuterol Neb 1.25 Mg/3 Ml INHALATION 0.63 mg Q6HRT EUGENIO Administration Ondansetron HCl 4 mg 06/28/25 13:33 06/30/25 12:00 Ondansetron Inj 4 Mg/2 Ml Vial IV PUSH 4 mg Q4H PRN Administration Nausea And Vomiting Sodium Chloride 10 ml 06/28/25 14:00 07/01/25 06:50 Central Line Flush IV PUSH 10 ml Q8HR EUGENIO Administration Sodium Chloride 10 ml 06/28/25 13:03 Central Line Flush IV PUSH PRN PRN with TPN bag changes Sodium Chloride 20 ml 06/28/25 13:03 Central Line Flush IV PUSH PRN PRN after blood draws Radiology Results: ITS Impressions Head CT 06/27/25 21:22 IMPRESSION: No acute intracranial hemorrhage or extra axial fluid collections. All CT scans at this facility are performed using low dose modulation techniques as appropriate to perform exam including the following: automated exposure control; use of iterative reconstruction technique; adjustment of the mA and/or kV according to patient size (this includes techniques or standardized protocols for targeted exams where dose is matched to indication/reason for exam). Chest/Abdomen/Pelvis CTA 06/27/25 22:00 IMPRESSION: 1. Hyperdense soft tissue of the bladder lumen, likely blood clot. [place] catheter present in the bladder lumen. 2: No evidence for aortic aneurysm or dissection. 3: Stenosis of the celiac axis, SMA and renal arteries. Carotid Doppler Study 06/28/25 20:17 IMPRESSION: 1. Less than 50% stenosis in the right internal carotid artery by sonographic criteria. 2. Less than 50% stenosis in the left internal carotid artery by sonographic criteria. Chest X-Ray 06/29/25 08:14 Impression: Mild CHF Labs Labs: Laboratory Results - last 24 hr 07/01/25 04:15 WBC 30.9 H RBC 2.84 L Hgb 8.6 L Hct 26.0 L MCV 91.5 MCH 30.3 MCHC 33.1 RDW 15.9 H Plt Count 82 L MPV 10.1 Immature Gran % (Auto) Not Reportable Neut % (Auto) Not Reportable Lymph % (Auto) Not Reportable [place] % (Auto) Not Reportable Eos % (Auto) Not Reportable Baso % (Auto) Not Reportable Lymph # (Auto) Not Reportable [place] # (Auto) Not Reportable Eos # (Auto) Not Reportable Baso # (Auto) Not Reportable Abs Immat Gran (auto) Not Reportable Absolute Neuts (auto) Not Reportable Absolute Nucleated RBC Not Reportable Total Counted 100 Neutrophils % (Manual) 94 H Band Neutrophils % 4 Lymphocytes % (Manual) 1.0 L Monocytes % (Manual) 1 L Nucleated RBC % Not Reportable Abs Neuts (Manual) 30.28 H Abs Lymphs (Manual) 0.30 L Abs Monocytes (Manual) 0.30 Platelet Estimate Decreased % Immature Plt Fraction 3.1 Anisocytosis 1+ Schistocytes None seen Sodium 134 L Potassium 3.7 Chloride 102 Carbon Dioxide 25 Anion Gap 7 BUN 45 H Creatinine 1.77 H Estim Creat Clear Calc 26 Estimated GFR 37 L Glucose 97 Calcium 8.1 L Phosphorus 3.1 Magnesium 2.7 H Total Bilirubin 0.6 AST 33 ALT 34 Alkaline Phosphatase 88 Total Protein 5.5 L Albumin 2.9 L
[2025-07-01] MEDS: LATANOPROST 0.005% OP SOLN 2.5 ML BTL 1 DROP EACH EYE (20:05)
[2025-07-01] MEDS: ACETAMINOPHEN 325 MG TABLET 650 MG PO (21:11)
[2025-07-02] VITALS (56 sets, daily range): BP systolic 99–142; BP diastolic 57–87; PULSE 85–124; RESP 12–24; TEMP 36.5–36.9; O2SAT 81–99
[2025-07-02] MEDS: IPRATROPIUM BR 0.02% INH SOLN 0.5 MG/2.5 ML VIAL INHALATION ×4 (02:42→21:00)
[2025-07-02] MEDS: dilTIAZem 100 MG/100 ML 100 MG/100 ML BAG 7.5 MG IV CONT ×2 (04:28→17:21)
[2025-07-02] MEDS: CENTRAL LINE FLUSH 10 ML IV PUSH ×3 (04:29→22:14)
[2025-07-02] MEDS: CENTRAL LINE FLUSH 20 ML IV PUSH (04:29)
[2025-07-02 04:44] LABS: Hematocrit 26.9 % (42.0-52.0); Hemoglobin 8.8 g/dL (14.0-18.0); Immature Granulocyte Percent A 5.2 % (0-0.5); Immature Platelet Fraction Pct 4.3 % (0.9-11.2); Lymphocytes Absolute Auto 0.71 K/mm3 (0.9-3.2); Mean Corpuscular HGB Conc 32.7 g/dl (32-36); Mean Corpuscular Hemoglobin 29.9 pg (26-34); Mean Corpuscular Volume 91.5 fl (80-100); Nucleated Red Blood Cells Absolute Auto 0.020 K/mm3 (0.0-0.012); Nucleated Red Blood Cells Perc 0.1 % (0.0-0.2); Platelet Count Result 79 k/mm3 (150-375); Red Blood Count 2.94 M/mm3 (4.6-6.20); White Blood Count 21.7 K/mm3 (4.5-10.0)
[2025-07-02 05:06] LABS: Alanine Aminotransferase 28 U/L (6-50); Albumin Level 2.7 g/dL (3.5-5.1); Alkaline Phosphatase 97 U/L (38-126); Anion Gap 3 mmol/L (4-12); Aspartate Amino Transferase 27 U/L (17-59); Bilirubin,Total 0.7 mg/dL (0.2-1.3); Blood Urea Nitrogen 39 mg/dL (9-20); Calcium 7.9 mg/dL (8.4-10.2); Carbon Dioxide 26 mmol/L (22-30); Chloride 104 mmol/L (98-107); Estimated CRCL calculation 31 ml/min; Estimated Glomerular Filt Rate 52; Glucose 92 mg/dL (65-110); Magnesium 2.4 mg/dL (1.6-2.3); Potassium 3.9 mmol/L (3.4-5.0); Sodium 133 mmol/L (137-145); Total Protein 5.2 g/dL (6.3-8.2)
[2025-07-02] MEDS: MEROPENEM 1 GM in SODIUM CHLORIDE 0.9% IV 100 ML 200 ML IVPB ×2 (09:20→20:13)
--- NOTE | 2025-07-02 09:59 | P.PNCA_ITS ---
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 Elevated cardiac troponin T in absence of chest pain OR ischemic ST changes on EKG suggestive of non ST segment elevation myocardial infarction. Patient has significant anemia and elevated creatinine which is contributing to this type 2, non thrombotic myocardial injury. 2. Known history of prostate cancer. Status post the prostate procedure no followed by removal of catheter and patient has hematuria with clots. 3. History of paroxysmal atrial fibrillation. EKG reveals normal sinus rhythm on admission. Patient is on apixaban as well as aspirin at home. 4. Acute blood loss anemia with hemoglobin as low as 8.0. 5. Sepsis with mental status changes. Improved 6. Chronic 3B kidney failure. Creatinine has improved and is at 1.3 today. 7. Hypotension on admission. Blood pressure does remain low and most recent is 95/68 mm of mercury with heart rate of 132 per minute. 8. Paroxysmal atrial fibrillation with rapid ventricular response noted this morning. EKG this morning shows atrial fibrillation with heart rate 172 per minute. Recommendations: 1. REGARDING HIS ATRIAL FIBRILLATION, continue diltiazem drip. Hopefully he converts back to sinus now that his acute illness has improved. Will restart some of his home dose of metoprolol succinate but at 25 mg daily. With intentions of weaning him off the diltiazem and resume his metoprolol 2. OKAY TO TRANSFER TO IMU 3. Hematuria is resolving. Continue to hold systemic anticoagulation for now and resume if/when able. LONG-TERM, CONSIDER LEFT ATRIAL APPENDAGE OCCLUDING DEVICE 4. Hold anticoagulation and aspirin for now. LIKELY TRANSITION BACK TO HIS ORAL METOPROLOL TOMORROW AND DC DILTIAZEM Subjective Date/time seen: 07/02/25 09:59 Interval history: The patient is 85-year-old male admitted on 06/27/2025 with the complaints of weakness and hematuria with clots. Patient has known history of atrial fibrill ation, hypertension and prostate cancer as well as [place] and esophageal reflux disease DATE OF SERVICE 07/02/2025: He has no chest pain, shortness of breath. Heart rate does increase with mild activity. Review of Systems Review of Systems: Twelve point review of system was completed. Pertinent positive and negative findings per HPI. Constitutional positive for weakness the and recent fall. Negative for fever or chills. Head and neck is negative Cardiovascular negative for chest pain or shortness of breath or palpitation. Pulmonary system negative for shortness of breath, wheezing or hemoptysis. Gastrointestinal system negative for abdominal pain, nausea vomiting or diarrhea. Genitourinary system positive for recent prostate surgery, removal of Limon catheter and hematuria with clot Neurovascular positive for recent episode of mental status changes and fall on the ground the patient does not remember Musculoskeletal positive for bruises on the knee. All systems reviewed & are unremarkable except as noted in HPI and below Constitutional: Constitutional: Denies difficulty sleeping ENT: Reports Normal hearing present Cardiovascular: Cardiovascular: Denies chest pain and Denies dyspnea Respiratory: Respiratory: Denies dyspnea Genitourinary: Genitourinary: Reports hematuria Neurologic: Reports Normal hearing present Exam Narrative: AWAKE ALERT. APPEARS STATED AGE Const: General: comfortable and no acute distress HENMT: Face/Nose/Sinus: Normal nares present Mouth: Yes moist mucous membranes Eyes: Sclera: sclerae normal Neck: Neck: supple and no JVD Resp: Effort & Inspection: normal respiratory effort Auscultation: clear to auscultation bilaterally Cardio: Rate: regular rate Rhythm: abnormal rhythm irregularly irregular GI: Inspection: non-distended Auscultation: normal bowel sounds Urinary Catheter: Urinary Catheter: patent and draining and urine red Skin: General skin exam: normal color Neuro: Cranial nerves: Yes Normal hearing present Speech: normal speech Extrem: General: normal to inspection Psych: Affect: normal affect Objective Data Vital Signs Vital Signs: Vital Signs - 24 hr 07/01/25 10:00 07/01/25 10:00 07/01/25 10:00 Temperature 36.6 C Pulse Rate 98 111 H 111 H Respiratory Rate 21 H Blood Pressure 131/79 131/79 Pulse Oximetry 98 Oxygen Delivery Fraction of Inspired Oxygen 07/01/25 10:00 07/01/25 10:15 07/01/25 11:00 Temperature Pulse Rate 98 97 Respiratory Rate 19 Blood Pressure 131/79 114/74 Pulse Oximetry 96 Oxygen Delivery Room Air Fraction of Inspired Oxygen 07/01/25 12:00 07/01/25 12:00 07/01/25 12:00 Temperature 36.5 C Pulse Rate 85 102 H Respiratory Rate 19 Blood Pressure 109/77 Pulse Oximetry 98 98 Oxygen Delivery Room Air Fraction of Inspired Oxygen 07/01/25 12:00 07/01/25 12:00 07/01/25 12:04 Temperature Pulse Rate 97 85 Respiratory Rate Blood Pressure 109/77 109/77 Pulse Oximetry Oxygen Delivery Fraction of Inspired Oxygen 07/01/25 13:00 07/01/25 14:00 07/01/25 14:00 Temperature Pulse Rate 85 88 88 Respiratory Rate 20 18 Blood Pressure 109/71 122/71 122/71 Pulse Oximetry 92 Oxygen Delivery Fraction of Inspired Oxygen 07/01/25 14:00 07/01/25 14:00 07/01/25 14:05 Temperature Pulse Rate 88 92 100 Respiratory Rate 20 Blood Pressure 122/71 Pulse Oximetry Oxygen Delivery Fraction of Inspired Oxygen 07/01/25 14:12 07/01/25 14:37 07/01/25 15:00 Temperature 36.7 C Pulse Rate 92 90 Respiratory Rate 20 12 Blood Pressure 130/70 Pulse Oximetry 93 Oxygen Delivery Fraction of Inspired Oxygen 07/01/25 15:28 07/01/25 15:44 07/01/25 15:59 Temperature Pulse Rate 86 87 Respiratory Rate Blood Pressure 130/70 130/70 Pulse Oximetry 95 Oxygen Delivery Room Air Fraction of Inspired Oxygen 07/01/25 16:00 07/01/25 16:00 07/01/25 16:00 Temperature Pulse Rate 95 89 95 Respiratory Rate 13 Blood Pressure 114/75 114/75 Pulse Oximetry 95 Oxygen Delivery Fraction of Inspired Oxygen 07/01/25 17:00 07/01/25 18:00 07/01/25 18:00 Temperature 37.0 C Pulse Rate 88 96 91 Respiratory Rate 14 18 Blood Pressure 122/73 112/72 Pulse Oximetry 95 94 Oxygen Delivery Fraction of Inspired Oxygen 07/01/25 18:00 07/01/25 19:00 07/01/25 19:01 Temperature Pulse Rate 91 92 100 Respiratory Rate 17 21 H Blood Pressure 112/72 113/84 Pulse Oximetry 92 Oxygen Delivery Fraction of Inspired Oxygen 07/01/25 19:15 07/01/25 19:30 07/01/25 19:45 Temperature Pulse Rate 94 87 97 Respiratory Rate 15 16 16 Blood Pressure Pulse Oximetry 97 94 95 Oxygen Delivery Fraction of Inspired Oxygen 07/01/25 20:00 07/01/25 20:00 07/01/25 20:00 Temperature Pulse Rate 92 86 Respiratory Rate Blood Pressure 124/72 Pulse Oximetry 95 Oxygen Delivery Room Air Fraction of Inspired Oxygen 07/01/25 20:00 07/01/25 20:01 07/01/25 20:15 Temperature 36.9 C Pulse Rate 92 92 88 Respiratory Rate 18 18 22 H Blood Pressure 124/72 Pulse Oximetry 96 96 93 Oxygen Delivery Fraction of Inspired Oxygen 07/01/25 20:19 07/01/25 20:19 07/01/25 20:29 Temperature Pulse Rate 102 H 99 Respiratory Rate 17 16 Blood Pressure Pulse Oximetry 97 Oxygen Delivery Room Air Fraction of Inspired Oxygen 21 07/01/25 20:30 07/01/25 20:45 07/01/25 21:00 Temperature Pulse Rate 99 102 H 112 H Respiratory Rate 17 15 24 H Blood Pressure Pulse Oximetry 98 95 96 Oxygen Delivery Fraction of Inspired Oxygen 07/01/25 21:01 07/01/25 21:15 07/01/25 21:30 Temperature Pulse Rate 120 H 104 H 102 H Respiratory Rate 22 H 19 14 Blood Pressure 140/77 Pulse Oximetry 96 94 Oxygen Delivery Fraction of Inspired Oxygen 07/01/25 21:45 07/01/25 22:00 07/01/25 22:00 Temperature Pulse Rate 106 H 88 104 H Respiratory Rate 21 H 15 Blood Pressure Pulse Oximetry 97 91 Oxygen Delivery Fraction of Inspired Oxygen 07/01/25 22:00 07/01/25 22:01 07/01/25 22:15 Temperature Pulse Rate 99 88 99 Respiratory Rate 14 7 L Blood Pressure 102/60 102/60 Pulse Oximetry 92 94 Oxygen Delivery Fraction of Inspired Oxygen 07/01/25 22:30 07/01/25 22:45 07/01/25 23:00 Temperature Pulse Rate 105 H 104 H 105 H Respiratory Rate 16 18 17 Blood Pressure Pulse Oximetry 94 79 L 95 Oxygen Delivery Fraction of Inspired Oxygen 07/01/25 23:01 07/01/25 23:15 07/01/25 23:30 Temperature Pulse Rate 113 H 111 H 99 Respiratory Rate 21 H 29 H 16 Blood Pressure 106/83 Pulse Oximetry 93 88 L 92 Oxygen Delivery Fraction of Inspired Oxygen 07/01/25 23:45 07/02/25 00:00 07/02/25 00:00 Temperature Pulse Rate 93 98 Respiratory Rate 14 Blood Pressure 99/62 L Pulse Oximetry 93 92 Oxygen Delivery Room Air Fraction of Inspired Oxygen 07/02/25 00:00 07/02/25 00:00 07/02/25 00:01 Temperature Pulse Rate 106 H 100 102 H Respiratory Rate 20 16 Blood Pressure 99/62 L Pulse Oximetry 93 91 Oxygen Delivery Fraction of Inspired Oxygen 07/02/25 00:02 07/02/25 00:15 07/02/25 00:30 Temperature Pulse Rate 109 H 103 H 112 H Respiratory Rate 17 17 19 Blood Pressure Pulse Oximetry 91 93 93 Oxygen Delivery Fraction of Inspired Oxygen 07/02/25 00:34 07/02/25 00:45 07/02/25 01:00 Temperature 36.5 C Pulse Rate 108 H 99 Respiratory Rate 17 16 Blood Pressure Pulse Oximetry 92 88 L Oxygen Delivery Fraction of Inspired Oxygen 07/02/25 01:01 07/02/25 01:15 07/02/25 01:30 Temperature Pulse Rate 96 114 H 90 Respiratory Rate 13 15 15 Blood Pressure 113/64 Pulse Oximetry 86 L 93 95 Oxygen Delivery Fraction of Inspired Oxygen 07/02/25 01:45 07/02/25 02:00 07/02/25 02:00 Temperature Pulse Rate 102 H 94 105 H Respiratory Rate 15 Blood Pressure 113/71 Pulse Oximetry 92 Oxygen Delivery Fraction of Inspired Oxygen 07/02/25 02:00 07/02/25 02:01 07/02/25 02:02 Temperature Pulse Rate 110 H 96 95 Respiratory Rate 17 15 17 Blood Pressure 113/71 Pulse Oximetry 93 93 99 Oxygen Delivery Fraction of Inspired Oxygen 07/02/25 02:15 07/02/25 02:30 07/02/25 02:44 Temperature Pulse Rate 101 H 105 H 105 H Respiratory Rate 15 15 17 Blood Pressure Pulse Oximetry 92 93 Oxygen Delivery Fraction of Inspired Oxygen 07/02/25 02:45 07/02/25 03:00 07/02/25 03:01 Temperature Pulse Rate 101 H 124 H 113 H Respiratory Rate 20 18 15 Blood Pressure 118/71 Pulse Oximetry 99 95 95 Oxygen Delivery Fraction of Inspired Oxygen 07/02/25 03:15 07/02/25 03:30 07/02/25 03:45 Temperature Pulse Rate 102 H 105 H 122 H Respiratory Rate 18 15 19 Blood Pressure Pulse Oximetry 90 94 96 Oxygen Delivery Fraction of Inspired Oxygen 07/02/25 04:00 07/02/25 04:00 07/02/25 04:00 Temperature Pulse Rate 104 H 113 H Respiratory Rate Blood Pressure 120/62 Pulse Oximetry 97 Oxygen Delivery Room Air Fraction of Inspired Oxygen 07/02/25 04:00 07/02/25 04:01 07/02/25 04:02 Temperature Pulse Rate 108 H 101 H 120 H Respiratory Rate 15 17 21 H Blood Pressure 120/62 Pulse Oximetry 97 86 L 81 L Oxygen Delivery Fraction of Inspired Oxygen 07/02/25 04:15 07/02/25 04:28 07/02/25 04:28 Temperature Pulse Rate 102 H 101 H 101 H Respiratory Rate 15 Blood Pressure 120/62 120/62 Pulse Oximetry 98 Oxygen Delivery Fraction of Inspired Oxygen 07/02/25 04:30 07/02/25 04:45 07/02/25 05:00 Temperature Pulse Rate 105 H 93 111 H Respiratory Rate 15 15 17 Blood Pressure Pulse Oximetry 94 97 86 L Oxygen Delivery Fraction of Inspired Oxygen 07/02/25 05:01 07/02/25 05:15 07/02/25 05:30 Temperature Pulse Rate 100 102 H 101 H Respiratory Rate 15 17 15 Blood Pressure 127/70 Pulse Oximetry 95 89 L 95 Oxygen Delivery Fraction of Inspired Oxygen 07/02/25 05:45 07/02/25 06:00 07/02/25 06:00 Temperature Pulse Rate 96 104 H 104 H Respiratory Rate 12 Blood Pressure 118/57 L Pulse Oximetry 96 Oxygen Delivery Fraction of Inspired Oxygen 07/02/25 06:00 07/02/25 06:01 07/02/25 07:34 Temperature 36.9 C Pulse Rate 97 101 H 104 H Respiratory Rate 16 18 18 Blood Pressure 118/67 112/71 Pulse Oximetry 98 93 94 Oxygen Delivery Fraction of Inspired Oxygen 07/02/25 08:00 07/02/25 08:33 07/02/25 08:34 Temperature Pulse Rate 116 H 93 Respiratory Rate 24 H Blood Pressure 112/71 Pulse Oximetry 96 Oxygen Delivery Room Air Fraction of Inspired Oxygen 07/02/25 08:48 07/02/25 09:55 Temperature 36.8 C Pulse Rate 98 107 H Respiratory Rate 18 18 Blood Pressure 140/80 Pulse Oximetry 94 Oxygen Delivery Fraction of Inspired Oxygen Intake/Output Intake/Output: Intake & Output 06/29/25 06/30/25 07/01/25 07/02/25 23:59 23:59 23:59 23:59 Intake Total 30646.2 4289.4 82568.7 70600.0 Output Total 78781 8950 59483 47110 Balance -882.8 -4660.6 -3993.3 -1500.0 Meds/Results Medications: Active Medications Generic Name Dose Route Start Last Admin Trade Name Freq PRN Reason Stop Dose Admin Acetaminophen 650 mg 06/28/25 01:26 Acetaminophen 650 Mg Suppository RECTAL Q6H PRN Mild Pain (1-3) or Fever Acetaminophen 650 mg 06/29/25 10:38 07/01/25 21:11 Acetaminophen 325 Mg Tablet PO 650 mg Q4H PRN Administration Mild Pain (1-3) or Fever Meropenem 1 gm/ Sodium 100 mls @ 200 mls/hr 06/29/25 08:30 07/02/25 09:20 Chloride IVPB 200 mls/hr Q12HR EUGENIO Administration Diltiazem HCl 100 mg in 100 mls @ 7.5 mls/hr 07/01/25 15:30 07/02/25 08:00 Cardizem 100 Mg/100 Ml IV CONT 7.5 mg/hr .[id number] EUGENIO 7.5 mls/hr 7.5 MG/HR Infusion Ipratropium [place] 0.5 mg 06/30/25 14:00 07/02/25 08:33 Ipratropium Br 0.02% Inh Soln 0.5 Mg/2.5 Ml Vial INHALATION 0.5 mg Q6HRT EUGENIO Administration Latanoprost 1 drop 06/28/25 21:00 07/01/25 20:05 Latanoprost 0.005% Op Soln 2.5 Ml Btl EACH EYE 1 drop HS EUGENIO Administration Levalbuterol HCl 0.63 mg 06/30/25 14:00 07/02/25 08:33 Levalbuterol Neb 1.25 Mg/3 Ml INHALATION 0.63 mg Q6HRT EUGENIO Administration Ondansetron HCl 4 mg 06/28/25 13:33 06/30/25 12:00 Ondansetron Inj 4 Mg/2 Ml Vial IV PUSH 4 mg Q4H PRN Administration Nausea And Vomiting Sodium Chloride 10 ml 06/28/25 14:00 07/02/25 04:29 Central Line Flush IV PUSH 10 ml Q8HR EUGENIO Administration Sodium Chloride 10 ml 06/28/25 13:03 Central Line Flush IV PUSH PRN PRN with TPN bag changes Sodium Chloride 20 ml 06/28/25 13:03 07/02/25 04:29 Central Line Flush IV PUSH 20 ml PRN PRN Administration after blood draws Radiology Results: ITS Impressions Head CT 06/27/25 21:22 IMPRESSION: No acute intracranial hemorrhage or extra axial fluid collections. All CT scans at this facility are performed using low dose modulation techniques as appropriate to perform exam including the following: automated exposure control; use of iterative reconstruction technique; adjustment of the mA and/or kV according to patient size (this includes techniques or standardized protocols for targeted exams where dose is matched to indication/reason for exam). Chest/Abdomen/Pelvis CTA 06/27/25 22:00 IMPRESSION: 1. Hyperdense soft tissue of the bladder lumen, likely blood clot. Limon catheter present in the bladder lumen. 2: No evidence for aortic aneurysm or dissection. 3: Stenosis of the celiac axis, SMA and renal arteries. Carotid Doppler Study 06/28/25 20:17 IMPRESSION: 1. Less than 50% stenosis in the right internal carotid artery by sonographic criteria. 2. Less than 50% stenosis in the left internal carotid artery by sonographic criteria. Chest X-Ray 06/29/25 08:14 Impression: Mild CHF Labs Labs: Laboratory Results - last 24 hr 07/02/25 07/02/25 04:31 04:34 WBC 21.7 H RBC 2.94 L Hgb 8.8 L Hct 26.9 L MCV 91.5 MCH 29.9 MCHC 32.7 RDW 15.7 H Plt Count 79 L MPV 10.8 H Immature Gran % (Auto) 5.2 H Neut % (Auto) 84.5 H Lymph % (Auto) 3.3 L [place] % (Auto) 6.0 Eos % (Auto) 0.4 Baso % (Auto) 0.6 Lymph # (Auto) 0.71 L [place] # (Auto) 1.3 H Eos # (Auto) 0.1 Baso # (Auto) 0.1 Abs Immat Gran (auto) 1.12 H Absolute Neuts (auto) 18.4 H Absolute Nucleated RBC 0.020 H Nucleated RBC % 0.1 % Immature Plt Fraction 4.3 Sodium 133 L Potassium 3.9 Chloride 104 Carbon Dioxide 26 Anion Gap 3 L BUN 39 H Creatinine 1.32 H Estim Creat Clear Calc 31 Estimated GFR 52 L Glucose 92 Calcium 7.9 L Phosphorus 2.6 Magnesium 2.4 H Total Bilirubin 0.7 AST 27 ALT 28 Alkaline Phosphatase 97 Total Protein 5.2 L Albumin 2.7 L
--- NOTE | 2025-07-02 10:27 | P.PNNP_ITS ---
Progress Note: A&P Assessment and Plan (1) Acute kidney injury: Code(s): N17.9 - Acute kidney failure, unspecified Status: Acute Assessment and Plan: * as noted by trend of labs on 06/28 (1.01mg/dl --> 1.39mg/dl) * normal creatinine at baseline as of 3 months ago (March 2025) * suspect multifactorial etiology: * urinary obstruction (with clot) * hypotension/shock * infection/sepsis * contrast exposure (CTA on 06/27) * prerenal factors * CARLOS-I use prior to admission * relative anemia * other(?) * off IV fluids * urine studies difficult to interpret with ongoing CBI * CT imaging without obstruction * creatinine is slowly improving. Creatinine is down to 1.3 to (2) Septic shock: Code(s): A41.9 - Sepsis, unspecified organism; R65.21 - Severe sepsis with septic shock Status: Acute Assessment and Plan: * presumably due to UTI complicated by blood loss anemia * noted elevated lactic acid and procalcitonin * s/p IVF resuscitation and PRBC transfusion * off pressors * follow culture data: * blood cultures (06/27) with GNB /Proteus * urine culture not done * on meropenem (3) UTI (urinary tract infection): Code(s): N39.0 - Urinary tract infection, site not specified Status: Acute Assessment and Plan: * suspected by admission UA * however, no urine culture done * on antibiotics as above (4) Paroxysmal A-fib: Code(s): I48.0 - Paroxysmal atrial fibrillation Status: Acute Assessment and Plan: * attempting rate control strategy * on cardizem gtt * digoxin added * heart rate in the low 100 * anticoagulation on hold due to hematuria/anemia * Cardiology following with recommendations noted (5) Hematuria: Code(s): R31.9 - Hematuria, unspecified Status: Acute Assessment and Plan: * persistent hematuria 4 weeks * Urology following: * s/p armstrong catheter placement/exchange on admission * on CBI * 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 Subjective Date/time seen: 07/02/25 10:27 Interval history: [place] is feeling okay. No chest pain or shortness of breath off pressors sitting up in a chair Exam Narrative: General: elderly but WD/WN male in NAD Heart: IRRR, normal S1 and S2; no rub Lungs: fairly clear Abdomen: soft, nontender, nondistended, positive bowel sounds Extremities: no cyanosis or clubbing; trace edema Skin: no rashy Objective Data Vital Signs Vital Signs: Vital Signs - 24 hr 07/01/25 11:00 07/01/25 12:00 07/01/25 12:00 Temperature 97.7 F Pulse Rate 97 85 Respiratory Rate 19 19 Blood Pressure 114/74 Pulse Oximetry 96 98 98 Oxygen Delivery Room Air Fraction of Inspired Oxygen 07/01/25 12:00 07/01/25 12:00 07/01/25 12:00 Temperature Pulse Rate 102 H 97 85 Respiratory Rate Blood Pressure 109/77 109/77 Pulse Oximetry Oxygen Delivery Fraction of Inspired Oxygen 07/01/25 12:04 07/01/25 13:00 07/01/25 14:00 Temperature Pulse Rate 85 88 Respiratory Rate 20 18 Blood Pressure 109/77 109/71 122/71 Pulse Oximetry 92 Oxygen Delivery Fraction of Inspired Oxygen 07/01/25 14:00 07/01/25 14:00 07/01/25 14:00 Temperature Pulse Rate 88 88 92 Respiratory Rate Blood Pressure 122/71 122/71 Pulse Oximetry Oxygen Delivery Fraction of Inspired Oxygen 07/01/25 14:05 07/01/25 14:12 07/01/25 14:37 Temperature 98.0 F Pulse Rate 100 92 Respiratory Rate 20 20 Blood Pressure Pulse Oximetry Oxygen Delivery Fraction of Inspired Oxygen 07/01/25 15:00 07/01/25 15:28 07/01/25 15:44 Temperature Pulse Rate 90 86 87 Respiratory Rate 12 Blood Pressure 130/70 130/70 130/70 Pulse Oximetry 93 Oxygen Delivery Fraction of Inspired Oxygen 07/01/25 15:59 07/01/25 16:00 07/01/25 16:00 Temperature Pulse Rate 95 89 Respiratory Rate 13 Blood Pressure 114/75 Pulse Oximetry 95 95 Oxygen Delivery Room Air Fraction of Inspired Oxygen 07/01/25 16:00 07/01/25 17:00 07/01/25 18:00 Temperature 98.6 F Pulse Rate 95 88 96 Respiratory Rate 14 18 Blood Pressure 114/75 122/73 112/72 Pulse Oximetry 95 94 Oxygen Delivery Fraction of Inspired Oxygen 07/01/25 18:00 07/01/25 18:00 07/01/25 19:00 Temperature Pulse Rate 91 91 92 Respiratory Rate 17 Blood Pressure 112/72 Pulse Oximetry Oxygen Delivery Fraction of Inspired Oxygen 07/01/25 19:01 07/01/25 19:15 07/01/25 19:30 Temperature Pulse Rate 100 94 87 Respiratory Rate 21 H 15 16 Blood Pressure 113/84 Pulse Oximetry 92 97 94 Oxygen Delivery Fraction of Inspired Oxygen 07/01/25 19:45 07/01/25 20:00 07/01/25 20:00 Temperature Pulse Rate 97 92 Respiratory Rate 16 Blood Pressure 124/72 Pulse Oximetry 95 95 Oxygen Delivery Room Air Fraction of Inspired Oxygen 07/01/25 20:00 07/01/25 20:00 07/01/25 20:01 Temperature 98.4 F Pulse Rate 86 92 92 Respiratory Rate 18 18 Blood Pressure 124/72 Pulse Oximetry 96 96 Oxygen Delivery Fraction of Inspired Oxygen 07/01/25 20:15 07/01/25 20:19 07/01/25 20:19 Temperature Pulse Rate 88 102 H Respiratory Rate 22 H 17 Blood Pressure Pulse Oximetry 93 97 Oxygen Delivery Room Air Fraction of Inspired Oxygen 21 07/01/25 20:29 07/01/25 20:30 07/01/25 20:45 Temperature Pulse Rate 99 99 102 H Respiratory Rate 16 17 15 Blood Pressure Pulse Oximetry 98 95 Oxygen Delivery Fraction of Inspired Oxygen 07/01/25 21:00 07/01/25 21:01 07/01/25 21:15 Temperature Pulse Rate 112 H 120 H 104 H Respiratory Rate 24 H 22 H 19 Blood Pressure 140/77 Pulse Oximetry 96 96 Oxygen Delivery Fraction of Inspired Oxygen 07/01/25 21:30 07/01/25 21:45 07/01/25 22:00 Temperature Pulse Rate 102 H 106 H 88 Respiratory Rate 14 21 H Blood Pressure Pulse Oximetry 94 97 Oxygen Delivery Fraction of Inspired Oxygen 07/01/25 22:00 07/01/25 22:00 07/01/25 22:01 Temperature Pulse Rate 104 H 99 88 Respiratory Rate 15 14 Blood Pressure 102/60 102/60 Pulse Oximetry 91 92 Oxygen Delivery Fraction of Inspired Oxygen 07/01/25 22:15 07/01/25 22:30 07/01/25 22:45 Temperature Pulse Rate 99 105 H 104 H Respiratory Rate 7 L 16 18 Blood Pressure Pulse Oximetry 94 94 79 L Oxygen Delivery Fraction of Inspired Oxygen 07/01/25 23:00 07/01/25 23:01 07/01/25 23:15 Temperature Pulse Rate 105 H 113 H 111 H Respiratory Rate 17 21 H 29 H Blood Pressure 106/83 Pulse Oximetry 95 93 88 L Oxygen Delivery Fraction of Inspired Oxygen 07/01/25 23:30 07/01/25 23:45 07/02/25 00:00 Temperature Pulse Rate 99 93 98 Respiratory Rate 16 14 Blood Pressure 99/62 L Pulse Oximetry 92 93 Oxygen Delivery Fraction of Inspired Oxygen 07/02/25 00:00 07/02/25 00:00 07/02/25 00:00 Temperature Pulse Rate 106 H 100 Respiratory Rate 20 Blood Pressure Pulse Oximetry 92 93 Oxygen Delivery Room Air Fraction of Inspired Oxygen 07/02/25 00:01 07/02/25 00:02 07/02/25 00:15 Temperature Pulse Rate 102 H 109 H 103 H Respiratory Rate 16 17 17 Blood Pressure 99/62 L Pulse Oximetry 91 91 93 Oxygen Delivery Fraction of Inspired Oxygen 07/02/25 00:30 07/02/25 00:34 07/02/25 00:45 Temperature 97.7 F Pulse Rate 112 H 108 H Respiratory Rate 19 17 Blood Pressure Pulse Oximetry 93 92 Oxygen Delivery Fraction of Inspired Oxygen 07/02/25 01:00 07/02/25 01:01 07/02/25 01:15 Temperature Pulse Rate 99 96 114 H Respiratory Rate 16 13 15 Blood Pressure 113/64 Pulse Oximetry 88 L 86 L 93 Oxygen Delivery Fraction of Inspired Oxygen 07/02/25 01:30 07/02/25 01:45 07/02/25 02:00 Temperature Pulse Rate 90 102 H 94 Respiratory Rate 15 15 Blood Pressure Pulse Oximetry 95 92 Oxygen Delivery Fraction of Inspired Oxygen 07/02/25 02:00 07/02/25 02:00 07/02/25 02:01 Temperature Pulse Rate 105 H 110 H 96 Respiratory Rate 17 15 Blood Pressure 113/71 113/71 Pulse Oximetry 93 93 Oxygen Delivery Fraction of Inspired Oxygen 07/02/25 02:02 07/02/25 02:15 07/02/25 02:30 Temperature Pulse Rate 95 101 H 105 H Respiratory Rate 17 15 15 Blood Pressure Pulse Oximetry 99 92 93 Oxygen Delivery Fraction of Inspired Oxygen 07/02/25 02:44 07/02/25 02:45 07/02/25 03:00 Temperature Pulse Rate 105 H 101 H 124 H Respiratory Rate 17 20 18 Blood Pressure Pulse Oximetry 99 95 Oxygen Delivery Fraction of Inspired Oxygen 07/02/25 03:01 07/02/25 03:15 07/02/25 03:30 Temperature Pulse Rate 113 H 102 H 105 H Respiratory Rate 15 18 15 Blood Pressure 118/71 Pulse Oximetry 95 90 94 Oxygen Delivery Fraction of Inspired Oxygen 07/02/25 03:45 07/02/25 04:00 07/02/25 04:00 Temperature Pulse Rate 122 H 104 H Respiratory Rate 19 Blood Pressure 120/62 Pulse Oximetry 96 97 Oxygen Delivery Room Air Fraction of Inspired Oxygen 07/02/25 04:00 07/02/25 04:00 07/02/25 04:01 Temperature Pulse Rate 113 H 108 H 101 H Respiratory Rate 15 17 Blood Pressure 120/62 Pulse Oximetry 97 86 L Oxygen Delivery Fraction of Inspired Oxygen 07/02/25 04:02 07/02/25 04:15 07/02/25 04:28 Temperature Pulse Rate 120 H 102 H 101 H Respiratory Rate 21 H 15 Blood Pressure 120/62 Pulse Oximetry 81 L 98 Oxygen Delivery Fraction of Inspired Oxygen 07/02/25 04:28 07/02/25 04:30 07/02/25 04:45 Temperature Pulse Rate 101 H 105 H 93 Respiratory Rate 15 15 Blood Pressure 120/62 Pulse Oximetry 94 97 Oxygen Delivery Fraction of Inspired Oxygen 07/02/25 05:00 07/02/25 05:01 07/02/25 05:15 Temperature Pulse Rate 111 H 100 102 H Respiratory Rate 17 15 17 Blood Pressure 127/70 Pulse Oximetry 86 L 95 89 L Oxygen Delivery Fraction of Inspired Oxygen 07/02/25 05:30 07/02/25 05:45 07/02/25 06:00 Temperature Pulse Rate 101 H 96 104 H Respiratory Rate 15 12 Blood Pressure Pulse Oximetry 95 96 Oxygen Delivery Fraction of Inspired Oxygen 07/02/25 06:00 07/02/25 06:00 07/02/25 06:01 Temperature Pulse Rate 104 H 97 101 H Respiratory Rate 16 18 Blood Pressure 118/57 L 118/67 Pulse Oximetry 98 93 Oxygen Delivery Fraction of Inspired Oxygen 07/02/25 07:34 07/02/25 08:00 07/02/25 08:00 Temperature 98.4 F Pulse Rate 104 H 116 H 106 H Respiratory Rate 18 Blood Pressure 112/71 112/71 Pulse Oximetry 94 Oxygen Delivery Fraction of Inspired Oxygen 07/02/25 08:33 07/02/25 08:34 07/02/25 08:48 Temperature Pulse Rate 93 98 Respiratory Rate 24 H 18 Blood Pressure Pulse Oximetry 96 Oxygen Delivery Room Air Fraction of Inspired Oxygen 07/02/25 09:55 Temperature 98.3 F Pulse Rate 107 H Respiratory Rate 18 Blood Pressure 140/80 Pulse Oximetry 94 Oxygen Delivery Fraction of Inspired Oxygen Intake/Output Intake/Output: Intake & Output 06/29/25 06/30/25 07/01/25 07/02/25 23:59 23:59 23:59 23:59 Intake Total 04599.2 4289.4 33542.7 86079.0 Output Total 75196 8950 19424 53252 Balance -882.8 -4660.6 -3993.3 -1500.0 Meds/Results Medications: Active Medications Generic Name Dose Route Start Last Admin Trade Name Freq PRN Reason Stop Dose Admin Acetaminophen 650 mg 06/28/25 01:26 Acetaminophen 650 Mg Suppository RECTAL Q6H PRN Mild Pain (1-3) or Fever Acetaminophen 650 mg 06/29/25 10:38 07/01/25 21:11 Acetaminophen 325 Mg Tablet PO 650 mg Q4H PRN Administration Mild Pain (1-3) or Fever Meropenem 1 gm/ Sodium 100 mls @ 200 mls/hr 06/29/25 08:30 07/02/25 09:20 Chloride IVPB 200 mls/hr Q12HR EUGENIO Administration Diltiazem HCl 100 mg in 100 mls @ 7.5 mls/hr 07/01/25 15:30 07/02/25 08:00 Cardizem 100 Mg/100 Ml IV CONT 7.5 mg/hr .[id number] EUGENIO 7.5 mls/hr 7.5 MG/HR Infusion Ipratropium Ryan 0.5 mg 06/30/25 14:00 07/02/25 08:33 Ipratropium Br 0.02% Inh Soln 0.5 Mg/2.5 Ml Vial INHALATION 0.5 mg Q6HRT EUGENIO Administration Latanoprost 1 drop 06/28/25 21:00 07/01/25 20:05 Latanoprost 0.005% Op Soln 2.5 Ml Btl EACH EYE 1 drop HS EUGENIO Administration Levalbuterol HCl 0.63 mg 06/30/25 14:00 07/02/25 08:33 Levalbuterol Neb 1.25 Mg/3 Ml INHALATION 0.63 mg Q6HRT EUGENIO Administration Metoprolol Succinate 25 mg 07/03/25 09:00 Metoprolol Succinate Ext Rel 25 Mg Tabcr PO QAM EUGENIO Ondansetron HCl 4 mg 06/28/25 13:33 06/30/25 12:00 Ondansetron Inj 4 Mg/2 Ml Vial IV PUSH 4 mg Q4H PRN Administration Nausea And Vomiting Sodium Chloride 10 ml 06/28/25 14:00 07/02/25 04:29 Central Line Flush IV PUSH 10 ml Q8HR EUGENIO Administration Sodium Chloride 10 ml 06/28/25 13:03 Central Line Flush IV PUSH PRN PRN with TPN bag changes Sodium Chloride 20 ml 06/28/25 13:03 07/02/25 04:29 Central Line Flush IV PUSH 20 ml PRN PRN Administration after blood draws Radiology Results: ITS Impressions Head CT 06/27/25 21:22 IMPRESSION: No acute intracranial hemorrhage or extra axial fluid collections. All CT scans at this facility are performed using low dose modulation techniques as appropriate to perform exam including the following: automated exposure control; use of iterative reconstruction technique; adjustment of the mA and/or kV according to patient size (this includes techniques or standardized protocols for targeted exams where dose is matched to indication/reason for exam). Chest/Abdomen/Pelvis CTA 06/27/25 22:00 IMPRESSION: 1. Hyperdense soft tissue of the bladder lumen, likely blood clot. Armstrong catheter present in the bladder lumen. 2: No evidence for aortic aneurysm or dissection. 3: Stenosis of the celiac axis, SMA and renal arteries. Carotid Doppler Study 06/28/25 20:17 IMPRESSION: 1. Less than 50% stenosis in the right internal carotid artery by sonographic criteria. 2. Less than 50% stenosis in the left internal carotid artery by sonographic criteria. Chest X-Ray 06/29/25 08:14 Impression: Mild CHF Labs Labs: Laboratory Results - last 24 hr 07/02/25 07/02/25 04:31 04:34 WBC 21.7 H RBC 2.94 L Hgb 8.8 L Hct 26.9 L MCV 91.5 MCH 29.9 MCHC 32.7 RDW 15.7 H Plt Count 79 L MPV 10.8 H Immature Gran % (Auto) 5.2 H Neut % (Auto) 84.5 H Lymph % (Auto) 3.3 L Ross % (Auto) 6.0 Eos % (Auto) 0.4 Baso % (Auto) 0.6 Lymph # (Auto) 0.71 L Ross # (Auto) 1.3 H Eos # (Auto) 0.1 Baso # (Auto) 0.1 Abs Immat Gran (auto) 1.12 H Absolute Neuts (auto) 18.4 H Absolute Nucleated RBC 0.020 H Nucleated RBC % 0.1 % Immature Plt Fraction 4.3 Sodium 133 L Potassium 3.9 Chloride 104 Carbon Dioxide 26 Anion Gap 3 L BUN 39 H Creatinine 1.32 H Estim Creat Clear Calc 31 Estimated GFR 52 L Glucose 92 Calcium 7.9 L Phosphorus 2.6 Magnesium 2.4 H Total Bilirubin 0.7 AST 27 ALT 28 Alkaline Phosphatase 97 Total Protein 5.2 L Albumin 2.7 L
--- NOTE | 2025-07-02 11:27 | P.PNUR_ITS ---
Progress Note: A&P Assessment and Plan (1) Gross hematuria: Code(s): R31.0 - Gross hematuria Status: Acute (2) UTI (urinary tract infection): Code(s): N39.0 - Urinary tract infection, site not specified Status: Acute Assessment and Plan: * Hematuria likely due to UTI +/- radiation cystitis * Continue CBI for now Plan -Hematuria likely due to UTI +/- radiation cystitis -Continue CBI for now as he continues to have significant hematuria -hgb is stable at 8.8 -if continues significant hematuria through the weekend, we will consider cysto + fulguration, possible Alum vs formalin instillation -given he is clearing with conservative measures do not anticipate need for operative intervention at this time Subjective Subjective Date/Time Seen: 07/02/25 11:27 Interval history: NAEO, doing well urine clearing, no pain or needs for hand irrigation, no clots. Review of Systems Review of Systems: All systems reviewed & are unremarkable except as noted in HPI and below Exam Const: General: no acute distress Eyes: General: appearance normal, both eyes and all related structures Resp: Effort & Inspection: normal respiratory effort GI: Inspection: non-distended Urinary Catheter: Urinary Catheter: patent and draining, urine clear (very light pink) and urine pink Neuro: Speech: normal speech Objective Data Vital Signs Vital Signs: Vital Signs - 24 hr 07/01/25 12:00 07/01/25 12:00 07/01/25 12:00 Temperature 36.5 C Pulse Rate 85 102 H Respiratory Rate 19 Blood Pressure 109/77 Pulse Oximetry 98 98 Oxygen Delivery Room Air Fraction of Inspired Oxygen 07/01/25 12:00 07/01/25 12:00 07/01/25 12:04 Temperature Pulse Rate 97 85 Respiratory Rate Blood Pressure 109/77 109/77 Pulse Oximetry Oxygen Delivery Fraction of Inspired Oxygen 07/01/25 13:00 07/01/25 14:00 07/01/25 14:00 Temperature Pulse Rate 85 88 88 Respiratory Rate 20 18 Blood Pressure 109/71 122/71 122/71 Pulse Oximetry 92 Oxygen Delivery Fraction of Inspired Oxygen 07/01/25 14:00 07/01/25 14:00 07/01/25 14:05 Temperature Pulse Rate 88 92 100 Respiratory Rate 20 Blood Pressure 122/71 Pulse Oximetry Oxygen Delivery Fraction of Inspired Oxygen 07/01/25 14:12 07/01/25 14:37 07/01/25 15:00 Temperature 36.7 C Pulse Rate 92 90 Respiratory Rate 20 12 Blood Pressure 130/70 Pulse Oximetry 93 Oxygen Delivery Fraction of Inspired Oxygen 07/01/25 15:28 07/01/25 15:44 07/01/25 15:59 Temperature Pulse Rate 86 87 Respiratory Rate Blood Pressure 130/70 130/70 Pulse Oximetry 95 Oxygen Delivery Room Air Fraction of Inspired Oxygen 07/01/25 16:00 07/01/25 16:00 07/01/25 16:00 Temperature Pulse Rate 95 89 95 Respiratory Rate 13 Blood Pressure 114/75 114/75 Pulse Oximetry 95 Oxygen Delivery Fraction of Inspired Oxygen 07/01/25 17:00 07/01/25 18:00 07/01/25 18:00 Temperature 37.0 C Pulse Rate 88 96 91 Respiratory Rate 14 18 Blood Pressure 122/73 112/72 Pulse Oximetry 95 94 Oxygen Delivery Fraction of Inspired Oxygen 07/01/25 18:00 07/01/25 19:00 07/01/25 19:01 Temperature Pulse Rate 91 92 100 Respiratory Rate 17 21 H Blood Pressure 112/72 113/84 Pulse Oximetry 92 Oxygen Delivery Fraction of Inspired Oxygen 07/01/25 19:15 07/01/25 19:30 07/01/25 19:45 Temperature Pulse Rate 94 87 97 Respiratory Rate 15 16 16 Blood Pressure Pulse Oximetry 97 94 95 Oxygen Delivery Fraction of Inspired Oxygen 07/01/25 20:00 07/01/25 20:00 07/01/25 20:00 Temperature Pulse Rate 92 86 Respiratory Rate Blood Pressure 124/72 Pulse Oximetry 95 Oxygen Delivery Room Air Fraction of Inspired Oxygen 07/01/25 20:00 07/01/25 20:01 07/01/25 20:15 Temperature 36.9 C Pulse Rate 92 92 88 Respiratory Rate 18 18 22 H Blood Pressure 124/72 Pulse Oximetry 96 96 93 Oxygen Delivery Fraction of Inspired Oxygen 07/01/25 20:19 07/01/25 20:19 07/01/25 20:29 Temperature Pulse Rate 102 H 99 Respiratory Rate 17 16 Blood Pressure Pulse Oximetry 97 Oxygen Delivery Room Air Fraction of Inspired Oxygen 21 07/01/25 20:30 07/01/25 20:45 07/01/25 21:00 Temperature Pulse Rate 99 102 H 112 H Respiratory Rate 17 15 24 H Blood Pressure Pulse Oximetry 98 95 96 Oxygen Delivery Fraction of Inspired Oxygen 07/01/25 21:01 07/01/25 21:15 07/01/25 21:30 Temperature Pulse Rate 120 H 104 H 102 H Respiratory Rate 22 H 19 14 Blood Pressure 140/77 Pulse Oximetry 96 94 Oxygen Delivery Fraction of Inspired Oxygen 07/01/25 21:45 07/01/25 22:00 07/01/25 22:00 Temperature Pulse Rate 106 H 88 104 H Respiratory Rate 21 H 15 Blood Pressure Pulse Oximetry 97 91 Oxygen Delivery Fraction of Inspired Oxygen 07/01/25 22:00 07/01/25 22:01 07/01/25 22:15 Temperature Pulse Rate 99 88 99 Respiratory Rate 14 7 L Blood Pressure 102/60 102/60 Pulse Oximetry 92 94 Oxygen Delivery Fraction of Inspired Oxygen 07/01/25 22:30 07/01/25 22:45 07/01/25 23:00 Temperature Pulse Rate 105 H 104 H 105 H Respiratory Rate 16 18 17 Blood Pressure Pulse Oximetry 94 79 L 95 Oxygen Delivery Fraction of Inspired Oxygen 07/01/25 23:01 07/01/25 23:15 07/01/25 23:30 Temperature Pulse Rate 113 H 111 H 99 Respiratory Rate 21 H 29 H 16 Blood Pressure 106/83 Pulse Oximetry 93 88 L 92 Oxygen Delivery Fraction of Inspired Oxygen 07/01/25 23:45 07/02/25 00:00 07/02/25 00:00 Temperature Pulse Rate 93 98 Respiratory Rate 14 Blood Pressure 99/62 L Pulse Oximetry 93 92 Oxygen Delivery Room Air Fraction of Inspired Oxygen 07/02/25 00:00 07/02/25 00:00 07/02/25 00:01 Temperature Pulse Rate 106 H 100 102 H Respiratory Rate 20 16 Blood Pressure 99/62 L Pulse Oximetry 93 91 Oxygen Delivery Fraction of Inspired Oxygen 07/02/25 00:02 07/02/25 00:15 07/02/25 00:30 Temperature Pulse Rate 109 H 103 H 112 H Respiratory Rate 17 17 19 Blood Pressure Pulse Oximetry 91 93 93 Oxygen Delivery Fraction of Inspired Oxygen 07/02/25 00:34 07/02/25 00:45 07/02/25 01:00 Temperature 36.5 C Pulse Rate 108 H 99 Respiratory Rate 17 16 Blood Pressure Pulse Oximetry 92 88 L Oxygen Delivery Fraction of Inspired Oxygen 07/02/25 01:01 07/02/25 01:15 07/02/25 01:30 Temperature Pulse Rate 96 114 H 90 Respiratory Rate 13 15 15 Blood Pressure 113/64 Pulse Oximetry 86 L 93 95 Oxygen Delivery Fraction of Inspired Oxygen 07/02/25 01:45 07/02/25 02:00 07/02/25 02:00 Temperature Pulse Rate 102 H 94 105 H Respiratory Rate 15 Blood Pressure 113/71 Pulse Oximetry 92 Oxygen Delivery Fraction of Inspired Oxygen 07/02/25 02:00 07/02/25 02:01 07/02/25 02:02 Temperature Pulse Rate 110 H 96 95 Respiratory Rate 17 15 17 Blood Pressure 113/71 Pulse Oximetry 93 93 99 Oxygen Delivery Fraction of Inspired Oxygen 07/02/25 02:15 07/02/25 02:30 07/02/25 02:44 Temperature Pulse Rate 101 H 105 H 105 H Respiratory Rate 15 15 17 Blood Pressure Pulse Oximetry 92 93 Oxygen Delivery Fraction of Inspired Oxygen 07/02/25 02:45 07/02/25 03:00 07/02/25 03:01 Temperature Pulse Rate 101 H 124 H 113 H Respiratory Rate 20 18 15 Blood Pressure 118/71 Pulse Oximetry 99 95 95 Oxygen Delivery Fraction of Inspired Oxygen 07/02/25 03:15 07/02/25 03:30 07/02/25 03:45 Temperature Pulse Rate 102 H 105 H 122 H Respiratory Rate 18 15 19 Blood Pressure Pulse Oximetry 90 94 96 Oxygen Delivery Fraction of Inspired Oxygen 07/02/25 04:00 07/02/25 04:00 07/02/25 04:00 Temperature Pulse Rate 104 H 113 H Respiratory Rate Blood Pressure 120/62 Pulse Oximetry 97 Oxygen Delivery Room Air Fraction of Inspired Oxygen 07/02/25 04:00 07/02/25 04:01 07/02/25 04:02 Temperature Pulse Rate 108 H 101 H 120 H Respiratory Rate 15 17 21 H Blood Pressure 120/62 Pulse Oximetry 97 86 L 81 L Oxygen Delivery Fraction of Inspired Oxygen 07/02/25 04:15 07/02/25 04:28 07/02/25 04:28 Temperature Pulse Rate 102 H 101 H 101 H Respiratory Rate 15 Blood Pressure 120/62 120/62 Pulse Oximetry 98 Oxygen Delivery Fraction of Inspired Oxygen 07/02/25 04:30 07/02/25 04:45 07/02/25 05:00 Temperature Pulse Rate 105 H 93 111 H Respiratory Rate 15 15 17 Blood Pressure Pulse Oximetry 94 97 86 L Oxygen Delivery Fraction of Inspired Oxygen 07/02/25 05:01 07/02/25 05:15 07/02/25 05:30 Temperature Pulse Rate 100 102 H 101 H Respiratory Rate 15 17 15 Blood Pressure 127/70 Pulse Oximetry 95 89 L 95 Oxygen Delivery Fraction of Inspired Oxygen 07/02/25 05:45 07/02/25 06:00 07/02/25 06:00 Temperature Pulse Rate 96 104 H 104 H Respiratory Rate 12 Blood Pressure 118/57 L Pulse Oximetry 96 Oxygen Delivery Fraction of Inspired Oxygen 07/02/25 06:00 07/02/25 06:01 07/02/25 07:34 Temperature 36.9 C Pulse Rate 97 101 H 104 H Respiratory Rate 16 18 18 Blood Pressure 118/67 112/71 Pulse Oximetry 98 93 94 Oxygen Delivery Fraction of Inspired Oxygen 07/02/25 08:00 07/02/25 08:00 07/02/25 08:00 Temperature Pulse Rate 116 H 106 H Respiratory Rate Blood Pressure 112/71 Pulse Oximetry 94 Oxygen Delivery Room Air Fraction of Inspired Oxygen 07/02/25 08:33 07/02/25 08:34 07/02/25 08:48 Temperature Pulse Rate 93 98 Respiratory Rate 24 H 18 Blood Pressure Pulse Oximetry 96 Oxygen Delivery Room Air Fraction of Inspired Oxygen 07/02/25 09:55 07/02/25 10:00 07/02/25 10:00 Temperature 36.8 C Pulse Rate 107 H 107 H 95 Respiratory Rate 18 Blood Pressure 140/80 140/80 Pulse Oximetry 94 Oxygen Delivery Fraction of Inspired Oxygen Intake/Output Intake/Output: Intake & Output 06/29/25 06/30/25 07/01/25 07/02/25 23:59 23:59 23:59 23:59 Intake Total 50334.2 4289.4 80125.7 86665.0 Output Total 03518 8950 [id number] [facility] -882.8 -4660.6 -3993.3 -1385.0 Meds/Results Medications: Active Medications Generic Name Dose Route Start Last Admin Trade Name Freq PRN Reason Stop Dose Admin Acetaminophen 650 mg 06/28/25 01:26 Acetaminophen 650 Mg Suppository RECTAL Q6H PRN Mild Pain (1-3) or Fever Acetaminophen 650 mg 06/29/25 10:38 07/01/25 21:11 Acetaminophen 325 Mg Tablet PO 650 mg Q4H PRN Administration Mild Pain (1-3) or Fever Meropenem 1 gm/ Sodium 100 mls @ 200 mls/hr 06/29/25 08:30 07/02/25 09:50 Chloride IVPB Infused Q12HR EUGENIO Infusion Diltiazem HCl 100 mg in 100 mls @ 7.5 mls/hr 07/01/25 15:30 07/02/25 10:00 Cardizem 100 Mg/100 Ml IV CONT 7.5 mg/hr .[id number] EUGENIO 7.5 mls/hr 7.5 MG/HR Infusion Ipratropium [place] 0.5 mg 06/30/25 14:00 07/02/25 08:33 Ipratropium Br 0.02% Inh Soln 0.5 Mg/2.5 Ml Vial INHALATION 0.5 mg Q6HRT EUGENIO Administration Latanoprost 1 drop 06/28/25 21:00 07/01/25 20:05 Latanoprost 0.005% Op Soln 2.5 Ml Btl EACH EYE 1 drop HS EUGENIO Administration Levalbuterol HCl 0.63 mg 06/30/25 14:00 07/02/25 08:33 Levalbuterol Neb 1.25 Mg/3 Ml INHALATION 0.63 mg Q6HRT EUGENIO Administration Metoprolol Succinate 25 mg 07/03/25 09:00 Metoprolol Succinate Ext Rel 25 Mg Tabcr PO QAM EUGENIO Ondansetron HCl 4 mg 06/28/25 13:33 06/30/25 12:00 Ondansetron Inj 4 Mg/2 Ml Vial IV PUSH 4 mg Q4H PRN Administration Nausea And Vomiting Sodium Chloride 10 ml 06/28/25 14:00 07/02/25 04:29 Central Line Flush IV PUSH 10 ml Q8HR EUGENIO Administration Sodium Chloride 10 ml 06/28/25 13:03 Central Line Flush IV PUSH PRN PRN with TPN bag changes Sodium Chloride 20 ml 06/28/25 13:03 07/02/25 04:29 Central Line Flush IV PUSH 20 ml PRN PRN Administration after blood draws Radiology Results: ITS Impressions Head CT 06/27/25 21:22 IMPRESSION: No acute intracranial hemorrhage or extra axial fluid collections. All CT scans at this facility are performed using low dose modulation techniques as appropriate to perform exam including the following: automated exposure control; use of iterative reconstruction technique; adjustment of the mA and/or kV according to patient size (this includes techniques or standardized protocols for targeted exams where dose is matched to indication/reason for exam). Chest/Abdomen/Pelvis CTA 06/27/25 22:00 IMPRESSION: 1. Hyperdense soft tissue of the bladder lumen, likely blood clot. [place] catheter present in the bladder lumen. 2: No evidence for aortic aneurysm or dissection. 3: Stenosis of the celiac axis, SMA and renal arteries. Carotid Doppler Study 06/28/25 20:17 IMPRESSION: 1. Less than 50% stenosis in the right internal carotid artery by sonographic criteria. 2. Less than 50% stenosis in the left internal carotid artery by sonographic criteria. Chest X-Ray 06/29/25 08:14 Impression: Mild CHF Labs Labs: Laboratory Results - last 24 hr 07/02/25 07/02/25 04:31 04:34 WBC 21.7 H RBC 2.94 L Hgb 8.8 L Hct 26.9 L MCV 91.5 MCH 29.9 MCHC 32.7 RDW 15.7 H Plt Count 79 L MPV 10.8 H Immature Gran % (Auto) 5.2 H Neut % (Auto) 84.5 H Lymph % (Auto) 3.3 L [place] % (Auto) 6.0 Eos % (Auto) 0.4 Baso % (Auto) 0.6 Lymph # (Auto) 0.71 L [place] # (Auto) 1.3 H Eos # (Auto) 0.1 Baso # (Auto) 0.1 Abs Immat Gran (auto) 1.12 H Absolute Neuts (auto) 18.4 H Absolute Nucleated RBC 0.020 H Nucleated RBC % 0.1 % Immature Plt Fraction 4.3 Sodium 133 L Potassium 3.9 Chloride 104 Carbon Dioxide 26 Anion Gap 3 L BUN 39 H Creatinine 1.32 H Estim Creat Clear Calc 31 Estimated GFR 52 L Glucose 92 Calcium 7.9 L Phosphorus 2.6 Magnesium 2.4 H Total Bilirubin 0.7 AST 27 ALT 28 Alkaline Phosphatase 97 Total Protein 5.2 L Albumin 2.7 L
--- NOTE | 2025-07-02 15:17 | PM.IMPN ---
Progress Note: A&P Assessment and Plan (1) Sepsis: Code(s): A41.9 - Sepsis, unspecified organism Status: Acute Assessment and Plan: -his white count was noted to be 20.6 -his heart rate is fast but his blood pressure is normal. -he has chills but no fever. -blood cultures are pending. -patient was empirically placed on Rocephin, doxycycline, and vancomycin. -daily CBC -the patient is lethargic and will only open his eyes when his name is called out. -source unknown at this time. -may consider Infectious Disease consult. -check lactic daily. Lactic is 3.3 -continue with IV fluids -no open areas noted at this time. No skin tears, no abrasions, and no open areas. (2) Paroxysmal A-fib: Code(s): I48.0 - Paroxysmal atrial fibrillation Status: Acute Assessment and Plan: -the patient is in sinus tachycardia with occasional supraventricular premature complexes. -the patient had been on Eliquis in the past but recently had hematuria and was taken off of the blood thinner. -patient was given a dose of Cardizem in the emergency room. -continue with metoprolol -continue with IV fluids as the patient currently has tachycardia with premature supraventricular beats (3) Hypertension: Code(s): I10 - Essential (primary) hypertension Status: Acute Assessment and Plan: -patient's blood pressure is currently 133/57. -resume home medications when the patient is awake enough to take oral medication and if blood pressure allows. (4) Sleep apnea: Qualifiers: Sleep apnea type: obstructive Qualified Code(s): G47.33 - Obstructive sleep apnea (adult) (pediatric) Code(s): G47.30 - Sleep apnea, unspecified Status: Acute Assessment and Plan: Continue with auto titrate for CPAP/BiPAP (5) Hyponatremia: Code(s): E87.1 - Hypo-osmolality and hyponatremia Status: Acute Assessment and Plan: -most likely related to dehydration. -continue with IV fluids. Monitor closely as to not cause fluid overload (last echo 07/21/2024 shows a normal left ventricular size with a preserved systolic contractility.) -check urine osmolality and urine sodium. 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 -Chest/Abdomen/Pelvis CTA 06/27/25 22:00 IMPRESSION: 1. Hyperdense soft tissue of the bladder lumen, likely blood clot. Limon catheter present in the bladder lumen. 2: No evidence for aortic aneurysm or dissection. 3: Stenosis of the celiac axis, SMA and renal arteries. May consider vascular consult outpatient (7) Encephalopathy: Code(s): G93.40 - Encephalopathy, unspecified Status: Acute Assessment and Plan: -could be due to infectious process. -could be related to the dehydration. -Head CT 06/27/25 21:22 IMPRESSION: No acute intracranial hemorrhage or extra axial fluid collections. -continue with neuro checks every 4 hours. -neurology consult. -a stroke workup which include an echo with bubble, an ultrasound of the carotids, as well as an MRI of the brain (8) Hypoxia: Code(s): R09.02 - Hypoxemia Status: Acute Assessment and Plan: -titrate oxygen to keep O2 saturations above 92%. -trend troponin -check an echo, last echo on 07/21/2024 was read as a following Summary 1. Definity contrast injected to improve visualization. 2. Normal left ventricular size with preserved systolic contractility. 3. Markedly dilated left atrium. 4. Mild MR. 5. Atrial fibrillation. (9) Hematuria: Code(s): R31.9 - Hematuria, unspecified Status: Acute Assessment and Plan: -consult urology -every 6 hour H&H -the patient has a history of prostate cancer. Is reported that the patient had a procedure within the last 2 weeks. -Limon catheter was placed in the emergency room. -H&H is currently 9.9 and 30.6. Plan patient with septic shock most likely 2/2 UTI, patient blood pressure is trending up and patient if off low pressures, patient with Atrial flutter seen by senior dot net developer and patient is on diltiazem drip and rate is trending down, patient blood culture is growing multiple organisms E coli, and Proteus mirabilis, patient is being treated with meropenem, patient with hematuria suspect most likely due to UTI with history of radiation therapy, patient is on CBI and hematuria is improving, patient is seen by director strategic planning and urologist. patient clinical symptoms are improving. Subjective Date/time seen: 07/02/25 15:17 Interval history: Weakness and hematuria H&P-Narrative: This is an 85-year-old male patient who resides with his . He has a history of paroxysmal AFib, GERD, hypertension and prostate cancer. The patient previously had gone through some urology procedures over the last 2 weeks. The patient was sent home with Limon catheter which was subsequently removed today. Patient was sent home without a Limon catheter. When the patient got home today he went to the bathroom and then does not recall getting back on the couch. Is reported that the saw him get down on his knees and slumped over on the ground and fell asleep. When EMS came with to their home it was noted that the patient was down for few hours. He denies any chest pain or shortness of breath any abdominal pain, nausea, vomiting, or headache. Head CT was read as no acute intracranial hemorrhage or extra-axial fluid collections. Chest/abdomen/pelvis CTA was read as a followingIMPRESSION: 1. Hyperdense soft tissue of the bladder lumen, likely blood clot. Limon catheter present in the bladder lumen. 2: No evidence for aortic aneurysm or dissection. 3: Stenosis of the celiac axis, SMA and renal arteries. The patient is very lethargic and not answering questions. Lab 20.6 with H&H 9.9 and 30.6 on his hematology. ABGs pH 7.480 with low bicarb and PO2 was low at 73.4. Oxygen was applied at 2 L per nasal cannula. His heart rate has been in the 1 teens with blood pressure 145/77. His lowest O2 saturation was 85 point has come up to 97%. Sodium was low at 129. His glucose is 116. Lactic is 3.3. Calcium is low at 8.3. Urine is turbid with 3+ protein, 2+ ketones, 3+ blood, 1+ urine bilirubin, 51-100 rbc's. Patient was given diltiazem IV push x1 Benadryl, prednisone, morphine, Rocephin, and IV fluids. The Limon catheter was placed in the emergency room patient with septic shock most likely 2/2 UTI, patient blood pressure is trending up and patient if off low pressures, patient with Atrial flutter seen by senior dot net developer and patient is on diltiazem drip and rate is trending down, patient blood culture is growing multiple organisms E coli, and Proteus mirabilis, patient is being treated with meropenem, patient with hematuria suspect most likely due to UTI with history of radiation therapy, patient is on CBI and hematuria is improving, patient is seen by director strategic planning and urologist. patient clinical symptoms are improving. Review of Systems Review of Systems: All systems reviewed & are unremarkable except as noted in HPI and below ROS unobtainable: Yes unobtainable due to mental status Exam Narrative: Patient is comfortable, NAD HEENT: eyes are clear and none icteric LUNGS:CTA HEART: RR S1S2 ABD: BS+, Soft and nontender Lower extremities: no edema SKIN: nonjaundiced Neuro: grossly intact. Objective Data Vital Signs Vital Signs: Vital Signs - 24 hr 07/01/25 15:28 07/01/25 15:44 07/01/25 15:59 Temperature Pulse Rate 86 87 Respiratory Rate Blood Pressure 130/70 130/70 Pulse Oximetry 95 Oxygen Delivery Room Air Fraction of Inspired Oxygen 07/01/25 16:00 07/01/25 16:00 07/01/25 16:00 Temperature Pulse Rate 95 89 95 Respiratory Rate 13 Blood Pressure 114/75 114/75 Pulse Oximetry 95 Oxygen Delivery Fraction of Inspired Oxygen 07/01/25 17:00 07/01/25 18:00 07/01/25 18:00 Temperature 37.0 C Pulse Rate 88 96 91 Respiratory Rate 14 18 Blood Pressure 122/73 112/72 Pulse Oximetry 95 94 Oxygen Delivery Fraction of Inspired Oxygen 07/01/25 18:00 07/01/25 19:00 07/01/25 19:01 Temperature Pulse Rate 91 92 100 Respiratory Rate 17 21 H Blood Pressure 112/72 113/84 Pulse Oximetry 92 Oxygen Delivery Fraction of Inspired Oxygen 07/01/25 19:15 07/01/25 19:30 07/01/25 19:45 Temperature Pulse Rate 94 87 97 Respiratory Rate 15 16 16 Blood Pressure Pulse Oximetry 97 94 95 Oxygen Delivery Fraction of Inspired Oxygen 07/01/25 20:00 07/01/25 20:00 07/01/25 20:00 Temperature Pulse Rate 92 86 Respiratory Rate Blood Pressure 124/72 Pulse Oximetry 95 Oxygen Delivery Room Air Fraction of Inspired Oxygen 07/01/25 20:00 07/01/25 20:01 07/01/25 20:15 Temperature 36.9 C Pulse Rate 92 92 88 Respiratory Rate 18 18 22 H Blood Pressure 124/72 Pulse Oximetry 96 96 93 Oxygen Delivery Fraction of Inspired Oxygen 07/01/25 20:19 07/01/25 20:19 07/01/25 20:29 Temperature Pulse Rate 102 H 99 Respiratory Rate 17 16 Blood Pressure Pulse Oximetry 97 Oxygen Delivery Room Air Fraction of Inspired Oxygen 21 07/01/25 20:30 07/01/25 20:45 07/01/25 21:00 Temperature Pulse Rate 99 102 H 112 H Respiratory Rate 17 15 24 H Blood Pressure Pulse Oximetry 98 95 96 Oxygen Delivery Fraction of Inspired Oxygen 07/01/25 21:01 07/01/25 21:15 07/01/25 21:30 Temperature Pulse Rate 120 H 104 H 102 H Respiratory Rate 22 H 19 14 Blood Pressure 140/77 Pulse Oximetry 96 94 Oxygen Delivery Fraction of Inspired Oxygen 07/01/25 21:45 07/01/25 22:00 07/01/25 22:00 Temperature Pulse Rate 106 H 88 104 H Respiratory Rate 21 H 15 Blood Pressure Pulse Oximetry 97 91 Oxygen Delivery Fraction of Inspired Oxygen 07/01/25 22:00 07/01/25 22:01 07/01/25 22:15 Temperature Pulse Rate 99 88 99 Respiratory Rate 14 7 L Blood Pressure 102/60 102/60 Pulse Oximetry 92 94 Oxygen Delivery Fraction of Inspired Oxygen 07/01/25 22:30 07/01/25 22:45 07/01/25 23:00 Temperature Pulse Rate 105 H 104 H 105 H Respiratory Rate 16 18 17 Blood Pressure Pulse Oximetry 94 79 L 95 Oxygen Delivery Fraction of Inspired Oxygen 07/01/25 23:01 07/01/25 23:15 07/01/25 23:30 Temperature Pulse Rate 113 H 111 H 99 Respiratory Rate 21 H 29 H 16 Blood Pressure 106/83 Pulse Oximetry 93 88 L 92 Oxygen Delivery Fraction of Inspired Oxygen 07/01/25 23:45 07/02/25 00:00 07/02/25 00:00 Temperature Pulse Rate 93 98 Respiratory Rate 14 Blood Pressure 99/62 L Pulse Oximetry 93 92 Oxygen Delivery Room Air Fraction of Inspired Oxygen 07/02/25 00:00 07/02/25 00:00 07/02/25 00:01 Temperature Pulse Rate 106 H 100 102 H Respiratory Rate 20 16 Blood Pressure 99/62 L Pulse Oximetry 93 91 Oxygen Delivery Fraction of Inspired Oxygen 07/02/25 00:02 07/02/25 00:15 07/02/25 00:30 Temperature Pulse Rate 109 H 103 H 112 H Respiratory Rate 17 17 19 Blood Pressure Pulse Oximetry 91 93 93 Oxygen Delivery Fraction of Inspired Oxygen 07/02/25 00:34 07/02/25 00:45 07/02/25 01:00 Temperature 36.5 C Pulse Rate 108 H 99 Respiratory Rate 17 16 Blood Pressure Pulse Oximetry 92 88 L Oxygen Delivery Fraction of Inspired Oxygen 07/02/25 01:01 07/02/25 01:15 07/02/25 01:30 Temperature Pulse Rate 96 114 H 90 Respiratory Rate 13 15 15 Blood Pressure 113/64 Pulse Oximetry 86 L 93 95 Oxygen Delivery Fraction of Inspired Oxygen 07/02/25 01:45 07/02/25 02:00 07/02/25 02:00 Temperature Pulse Rate 102 H 94 105 H Respiratory Rate 15 Blood Pressure 113/71 Pulse Oximetry 92 Oxygen Delivery Fraction of Inspired Oxygen 07/02/25 02:00 07/02/25 02:01 07/02/25 02:02 Temperature Pulse Rate 110 H 96 95 Respiratory Rate 17 15 17 Blood Pressure 113/71 Pulse Oximetry 93 93 99 Oxygen Delivery Fraction of Inspired Oxygen 07/02/25 02:15 07/02/25 02:30 07/02/25 02:44 Temperature Pulse Rate 101 H 105 H 105 H Respiratory Rate 15 15 17 Blood Pressure Pulse Oximetry 92 93 Oxygen Delivery Fraction of Inspired Oxygen 07/02/25 02:45 07/02/25 03:00 07/02/25 03:01 Temperature Pulse Rate 101 H 124 H 113 H Respiratory Rate 20 18 15 Blood Pressure 118/71 Pulse Oximetry 99 95 95 Oxygen Delivery Fraction of Inspired Oxygen 07/02/25 03:15 07/02/25 03:30 07/02/25 03:45 Temperature Pulse Rate 102 H 105 H 122 H Respiratory Rate 18 15 19 Blood Pressure Pulse Oximetry 90 94 96 Oxygen Delivery Fraction of Inspired Oxygen 07/02/25 04:00 07/02/25 04:00 07/02/25 04:00 Temperature Pulse Rate 104 H 113 H Respiratory Rate Blood Pressure 120/62 Pulse Oximetry 97 Oxygen Delivery Room Air Fraction of Inspired Oxygen 07/02/25 04:00 07/02/25 04:01 07/02/25 04:02 Temperature Pulse Rate 108 H 101 H 120 H Respiratory Rate 15 17 21 H Blood Pressure 120/62 Pulse Oximetry 97 86 L 81 L Oxygen Delivery Fraction of Inspired Oxygen 07/02/25 04:15 07/02/25 04:28 07/02/25 04:28 Temperature Pulse Rate 102 H 101 H 101 H Respiratory Rate 15 Blood Pressure 120/62 120/62 Pulse Oximetry 98 Oxygen Delivery Fraction of Inspired Oxygen 07/02/25 04:30 07/02/25 04:45 07/02/25 05:00 Temperature Pulse Rate 105 H 93 111 H Respiratory Rate 15 15 17 Blood Pressure Pulse Oximetry 94 97 86 L Oxygen Delivery Fraction of Inspired Oxygen 07/02/25 05:01 07/02/25 05:15 07/02/25 05:30 Temperature Pulse Rate 100 102 H 101 H Respiratory Rate 15 17 15 Blood Pressure 127/70 Pulse Oximetry 95 89 L 95 Oxygen Delivery Fraction of Inspired Oxygen 07/02/25 05:45 07/02/25 06:00 07/02/25 06:00 Temperature Pulse Rate 96 104 H 104 H Respiratory Rate 12 Blood Pressure 118/57 L Pulse Oximetry 96 Oxygen Delivery Fraction of Inspired Oxygen 07/02/25 06:00 07/02/25 06:01 07/02/25 07:34 Temperature 36.9 C Pulse Rate 97 101 H 104 H Respiratory Rate 16 18 18 Blood Pressure 118/67 112/71 Pulse Oximetry 98 93 94 Oxygen Delivery Fraction of Inspired Oxygen 07/02/25 08:00 07/02/25 08:00 07/02/25 08:00 Temperature Pulse Rate 116 H 106 H Respiratory Rate Blood Pressure 112/71 Pulse Oximetry 94 Oxygen Delivery Room Air Fraction of Inspired Oxygen 07/02/25 08:33 07/02/25 08:34 07/02/25 08:48 Temperature Pulse Rate 93 98 Respiratory Rate 24 H 18 Blood Pressure Pulse Oximetry 96 Oxygen Delivery Room Air Fraction of Inspired Oxygen 07/02/25 09:55 07/02/25 10:00 07/02/25 10:00 Temperature 36.8 C Pulse Rate 107 H 107 H 95 Respiratory Rate 18 Blood Pressure 140/80 140/80 Pulse Oximetry 94 Oxygen Delivery Fraction of Inspired Oxygen 07/02/25 12:00 07/02/25 12:00 07/02/25 12:00 Temperature 36.8 C Pulse Rate 94 94 Respiratory Rate 16 Blood Pressure 124/83 124/83 Pulse Oximetry 96 96 Oxygen Delivery Room Air Fraction of Inspired Oxygen 07/02/25 12:00 07/02/25 14:00 07/02/25 14:00 Temperature 36.9 C Pulse Rate 104 H 92 92 Respiratory Rate 17 Blood Pressure 142/87 H Pulse Oximetry 96 Oxygen Delivery Fraction of Inspired Oxygen 07/02/25 14:00 Temperature Pulse Rate 101 H Respiratory Rate Blood Pressure 142/87 H Pulse Oximetry Oxygen Delivery Fraction of Inspired Oxygen Intake/Output Intake/Output: Intake & Output 06/29/25 06/30/25 07/01/25 07/02/25 23:59 23:59 23:59 23:59 Intake Total 73251.2 4289.4 06216.7 69028.0 Output Total 77172 8950 71843 59496 Balance -882.8 -4660.6 -3993.3 -4905.0 Meds/Results Medications: Active Medications Generic Name Dose Route Start Last Admin Trade Name Freq PRN Reason Stop Dose Admin Acetaminophen 650 mg 06/28/25 01:26 Acetaminophen 650 Mg Suppository RECTAL Q6H PRN Mild Pain (1-3) or Fever Acetaminophen 650 mg 06/29/25 10:38 07/01/25 21:11 Acetaminophen 325 Mg Tablet PO 650 mg Q4H PRN Administration Mild Pain (1-3) or Fever Meropenem 1 gm/ Sodium 100 mls @ 200 mls/hr 06/29/25 08:30 07/02/25 09:50 Chloride IVPB Infused Q12HR EUGENIO Infusion Diltiazem HCl 100 mg in 100 mls @ 7.5 mls/hr 07/01/25 15:30 07/02/25 14:00 Cardizem 100 Mg/100 Ml IV CONT 7.5 mg/hr .[id number] EUGENIO 7.5 mls/hr 7.5 MG/HR Infusion Ipratropium [place] 0.5 mg 06/30/25 14:00 07/02/25 08:33 Ipratropium Br 0.02% Inh Soln 0.5 Mg/2.5 Ml Vial INHALATION 0.5 mg Q6HRT EUGENIO Administration Latanoprost 1 drop 06/28/25 21:00 07/01/25 20:05 Latanoprost 0.005% Op Soln 2.5 Ml Btl EACH EYE 1 drop HS EUGENIO Administration Levalbuterol HCl 0.63 mg 06/30/25 14:00 07/02/25 08:33 Levalbuterol Neb 1.25 Mg/3 Ml INHALATION 0.63 mg Q6HRT EUGENIO Administration Metoprolol Succinate 25 mg 07/03/25 09:00 Metoprolol Succinate Ext Rel 25 Mg Tabcr PO QAM EUGENIO Ondansetron HCl 4 mg 06/28/25 13:33 06/30/25 12:00 Ondansetron Inj 4 Mg/2 Ml Vial IV PUSH 4 mg Q4H PRN Administration Nausea And Vomiting Sodium Chloride 10 ml 06/28/25 14:00 07/02/25 14:14 Central Line Flush IV PUSH 10 ml Q8HR EUGENIO Administration Sodium Chloride 10 ml 06/28/25 13:03 Central Line Flush IV PUSH PRN PRN with TPN bag changes Sodium Chloride 20 ml 06/28/25 13:03 07/02/25 04:29 Central Line Flush IV PUSH 20 ml PRN PRN Administration after blood draws Radiology Results: ITS Impressions Head CT 06/27/25 21:22 IMPRESSION: No acute intracranial hemorrhage or extra axial fluid collections. All CT scans at this facility are performed using low dose modulation techniques as appropriate to perform exam including the following: automated exposure control; use of iterative reconstruction technique; adjustment of the mA and/or kV according to patient size (this includes techniques or standardized protocols for targeted exams where dose is matched to indication/reason for exam). Chest/Abdomen/Pelvis CTA 06/27/25 22:00 IMPRESSION: 1. Hyperdense soft tissue of the bladder lumen, likely blood clot. Limon catheter present in the bladder lumen. 2: No evidence for aortic aneurysm or dissection. 3: Stenosis of the celiac axis, SMA and renal arteries. Carotid Doppler Study 06/28/25 20:17 IMPRESSION: 1. Less than 50% stenosis in the right internal carotid artery by sonographic criteria. 2. Less than 50% stenosis in the left internal carotid artery by sonographic criteria. Chest X-Ray 06/29/25 08:14 Impression: Mild CHF Labs Labs: Laboratory Results - last 24 hr 07/02/25 07/02/25 04:31 04:34 WBC 21.7 H RBC 2.94 L Hgb 8.8 L Hct 26.9 L MCV 91.5 MCH 29.9 MCHC 32.7 RDW 15.7 H Plt Count 79 L MPV 10.8 H Immature Gran % (Auto) 5.2 H Neut % (Auto) 84.5 H Lymph % (Auto) 3.3 L [place] % (Auto) 6.0 Eos % (Auto) 0.4 Baso % (Auto) 0.6 Lymph # (Auto) 0.71 L [place] # (Auto) 1.3 H Eos # (Auto) 0.1 Baso # (Auto) 0.1 Abs Immat Gran (auto) 1.12 H Absolute Neuts (auto) 18.4 H Absolute Nucleated RBC 0.020 H Nucleated RBC % 0.1 % Immature Plt Fraction 4.3 Sodium 133 L Potassium 3.9 Chloride 104 Carbon Dioxide 26 Anion Gap 3 L BUN 39 H Creatinine 1.32 H Estim Creat Clear Calc 31 Estimated GFR 52 L Glucose 92 Calcium 7.9 L Phosphorus 2.6 Magnesium 2.4 H Total Bilirubin 0.7 AST 27 ALT 28 Alkaline Phosphatase 97 Total Protein 5.2 L Albumin 2.7 L Quality VTE Prophylaxis VTE prophylaxis: mechanical ordered
--- NOTE | 2025-07-02 16:36 | WPDNEUROPN ---
Progress Note: A&P Assessment and Plan (1) Metabolic encephalopathy: Code(s): G93.41 - Metabolic encephalopathy Status: Acute Assessment and Plan: patient seems to be getting much better and is stable however family is concerned about the speech. Overall his condition satisfactory however MRI of the brain will be helpful to look for any other coincidental abnormal findings. In the meanwhile the continued support for the metabolic problem is recommended. (2) Left foot drop: Code(s): M21.372 - Foot drop, left foot Status: Acute (3) Paroxysmal A-fib: Code(s): I48.0 - Paroxysmal atrial fibrillation Status: Acute (4) MOOIKE (acute kidney injury): Code(s): N17.9 - Acute kidney failure, unspecified Status: Acute Plan I shall be glad to follow up with the results MRI of the brain. Subjective Date/time seen: 07/02/25 16:36 Interval history: The patient continues to be awake and alert and his family members are present. They have some concern regarding his speech. Previously the patient was seen by me and he appeared fairly alert. He has had numerous medical problems and was felt take. White cell count was high at 20.6. He has hypertension. He also had acute kidney disorder and congestive cardiac failure. CT scan of brain performed previously was within normal range. White cell count has gone up to 30.7. He also history of carcinoma of prostate. Patient himself denies any specific symptoms from neurologic point of view. A carotid Doppler study was performed on 06/28/2025 which did not show any significant abnormalities. Current records were reviewed. Review of Systems Review of Systems: Patient denies any other pertinent symptoms at this time. Exam Narrative: Fully conscious alert. No aphasia or dysarthria. Examination head and neck was unremarkable. Cranial nerve senior testing intact. No facial asymmetry. Tongue was midline. Pupils are equal reacting. Motor system normal power and tone in both upper lower limbs except for persistent left footdrop. No spasticity. Objective Data Vital Signs Vital Signs: Vital Signs - 24 hr 07/01/25 17:00 07/01/25 18:00 07/01/25 18:00 Temperature 98.6 F Pulse Rate 88 96 91 Respiratory Rate 14 18 Blood Pressure 122/73 112/72 Pulse Oximetry 95 94 Oxygen Delivery Fraction of Inspired Oxygen 07/01/25 18:00 07/01/25 19:00 07/01/25 19:01 Temperature Pulse Rate 91 92 100 Respiratory Rate 17 21 H Blood Pressure 112/72 113/84 Pulse Oximetry 92 Oxygen Delivery Fraction of Inspired Oxygen 07/01/25 19:15 07/01/25 19:30 07/01/25 19:45 Temperature Pulse Rate 94 87 97 Respiratory Rate 15 16 16 Blood Pressure Pulse Oximetry 97 94 95 Oxygen Delivery Fraction of Inspired Oxygen 07/01/25 20:00 07/01/25 20:00 07/01/25 20:00 Temperature Pulse Rate 92 86 Respiratory Rate Blood Pressure 124/72 Pulse Oximetry 95 Oxygen Delivery Room Air Fraction of Inspired Oxygen 07/01/25 20:00 07/01/25 20:01 07/01/25 20:15 Temperature 98.4 F Pulse Rate 92 92 88 Respiratory Rate 18 18 22 H Blood Pressure 124/72 Pulse Oximetry 96 96 93 Oxygen Delivery Fraction of Inspired Oxygen 07/01/25 20:19 07/01/25 20:19 07/01/25 20:29 Temperature Pulse Rate 102 H 99 Respiratory Rate 17 16 Blood Pressure Pulse Oximetry 97 Oxygen Delivery Room Air Fraction of Inspired Oxygen 21 07/01/25 20:30 07/01/25 20:45 07/01/25 21:00 Temperature Pulse Rate 99 102 H 112 H Respiratory Rate 17 15 24 H Blood Pressure Pulse Oximetry 98 95 96 Oxygen Delivery Fraction of Inspired Oxygen 07/01/25 21:01 07/01/25 21:15 07/01/25 21:30 Temperature Pulse Rate 120 H 104 H 102 H Respiratory Rate 22 H 19 14 Blood Pressure 140/77 Pulse Oximetry 96 94 Oxygen Delivery Fraction of Inspired Oxygen 07/01/25 21:45 07/01/25 22:00 07/01/25 22:00 Temperature Pulse Rate 106 H 88 104 H Respiratory Rate 21 H 15 Blood Pressure Pulse Oximetry 97 91 Oxygen Delivery Fraction of Inspired Oxygen 07/01/25 22:00 07/01/25 22:01 07/01/25 22:15 Temperature Pulse Rate 99 88 99 Respiratory Rate 14 7 L Blood Pressure 102/60 102/60 Pulse Oximetry 92 94 Oxygen Delivery Fraction of Inspired Oxygen 07/01/25 22:30 07/01/25 22:45 07/01/25 23:00 Temperature Pulse Rate 105 H 104 H 105 H Respiratory Rate 16 18 17 Blood Pressure Pulse Oximetry 94 79 L 95 Oxygen Delivery Fraction of Inspired Oxygen 07/01/25 23:01 07/01/25 23:15 07/01/25 23:30 Temperature Pulse Rate 113 H 111 H 99 Respiratory Rate 21 H 29 H 16 Blood Pressure 106/83 Pulse Oximetry 93 88 L 92 Oxygen Delivery Fraction of Inspired Oxygen 07/01/25 23:45 07/02/25 00:00 07/02/25 00:00 Temperature Pulse Rate 93 98 Respiratory Rate 14 Blood Pressure 99/62 L Pulse Oximetry 93 92 Oxygen Delivery Room Air Fraction of Inspired Oxygen 07/02/25 00:00 07/02/25 00:00 07/02/25 00:01 Temperature Pulse Rate 106 H 100 102 H Respiratory Rate 20 16 Blood Pressure 99/62 L Pulse Oximetry 93 91 Oxygen Delivery Fraction of Inspired Oxygen 07/02/25 00:02 07/02/25 00:15 07/02/25 00:30 Temperature Pulse Rate 109 H 103 H 112 H Respiratory Rate 17 17 19 Blood Pressure Pulse Oximetry 91 93 93 Oxygen Delivery Fraction of Inspired Oxygen 07/02/25 00:34 07/02/25 00:45 07/02/25 01:00 Temperature 97.7 F Pulse Rate 108 H 99 Respiratory Rate 17 16 Blood Pressure Pulse Oximetry 92 88 L Oxygen Delivery Fraction of Inspired Oxygen 07/02/25 01:01 07/02/25 01:15 07/02/25 01:30 Temperature Pulse Rate 96 114 H 90 Respiratory Rate 13 15 15 Blood Pressure 113/64 Pulse Oximetry 86 L 93 95 Oxygen Delivery Fraction of Inspired Oxygen 07/02/25 01:45 07/02/25 02:00 07/02/25 02:00 Temperature Pulse Rate 102 H 94 105 H Respiratory Rate 15 Blood Pressure 113/71 Pulse Oximetry 92 Oxygen Delivery Fraction of Inspired Oxygen 07/02/25 02:00 07/02/25 02:01 07/02/25 02:02 Temperature Pulse Rate 110 H 96 95 Respiratory Rate 17 15 17 Blood Pressure 113/71 Pulse Oximetry 93 93 99 Oxygen Delivery Fraction of Inspired Oxygen 07/02/25 02:15 07/02/25 02:30 07/02/25 02:44 Temperature Pulse Rate 101 H 105 H 105 H Respiratory Rate 15 15 17 Blood Pressure Pulse Oximetry 92 93 Oxygen Delivery Fraction of Inspired Oxygen 07/02/25 02:45 07/02/25 03:00 07/02/25 03:01 Temperature Pulse Rate 101 H 124 H 113 H Respiratory Rate 20 18 15 Blood Pressure 118/71 Pulse Oximetry 99 95 95 Oxygen Delivery Fraction of Inspired Oxygen 07/02/25 03:15 07/02/25 03:30 07/02/25 03:45 Temperature Pulse Rate 102 H 105 H 122 H Respiratory Rate 18 15 19 Blood Pressure Pulse Oximetry 90 94 96 Oxygen Delivery Fraction of Inspired Oxygen 07/02/25 04:00 07/02/25 04:00 07/02/25 04:00 Temperature Pulse Rate 104 H 113 H Respiratory Rate Blood Pressure 120/62 Pulse Oximetry 97 Oxygen Delivery Room Air Fraction of Inspired Oxygen 07/02/25 04:00 07/02/25 04:01 07/02/25 04:02 Temperature Pulse Rate 108 H 101 H 120 H Respiratory Rate 15 17 21 H Blood Pressure 120/62 Pulse Oximetry 97 86 L 81 L Oxygen Delivery Fraction of Inspired Oxygen 07/02/25 04:15 07/02/25 04:28 07/02/25 04:28 Temperature Pulse Rate 102 H 101 H 101 H Respiratory Rate 15 Blood Pressure 120/62 120/62 Pulse Oximetry 98 Oxygen Delivery Fraction of Inspired Oxygen 07/02/25 04:30 07/02/25 04:45 07/02/25 05:00 Temperature Pulse Rate 105 H 93 111 H Respiratory Rate 15 15 17 Blood Pressure Pulse Oximetry 94 97 86 L Oxygen Delivery Fraction of Inspired Oxygen 07/02/25 05:01 07/02/25 05:15 07/02/25 05:30 Temperature Pulse Rate 100 102 H 101 H Respiratory Rate 15 17 15 Blood Pressure 127/70 Pulse Oximetry 95 89 L 95 Oxygen Delivery Fraction of Inspired Oxygen 07/02/25 05:45 07/02/25 06:00 07/02/25 06:00 Temperature Pulse Rate 96 104 H 104 H Respiratory Rate 12 Blood Pressure 118/57 L Pulse Oximetry 96 Oxygen Delivery Fraction of Inspired Oxygen 07/02/25 06:00 07/02/25 06:01 07/02/25 07:34 Temperature 98.4 F Pulse Rate 97 101 H 104 H Respiratory Rate 16 18 18 Blood Pressure 118/67 112/71 Pulse Oximetry 98 93 94 Oxygen Delivery Fraction of Inspired Oxygen 07/02/25 08:00 07/02/25 08:00 07/02/25 08:00 Temperature Pulse Rate 116 H 106 H Respiratory Rate Blood Pressure 112/71 Pulse Oximetry 94 Oxygen Delivery Room Air Fraction of Inspired Oxygen 07/02/25 08:33 07/02/25 08:34 07/02/25 08:48 Temperature Pulse Rate 93 98 Respiratory Rate 24 H 18 Blood Pressure Pulse Oximetry 96 Oxygen Delivery Room Air Fraction of Inspired Oxygen 07/02/25 09:55 07/02/25 10:00 07/02/25 10:00 Temperature 98.3 F Pulse Rate 107 H 107 H 95 Respiratory Rate 18 Blood Pressure 140/80 140/80 Pulse Oximetry 94 Oxygen Delivery Fraction of Inspired Oxygen 07/02/25 12:00 07/02/25 12:00 07/02/25 12:00 Temperature 98.2 F Pulse Rate 94 94 Respiratory Rate 16 Blood Pressure 124/83 124/83 Pulse Oximetry 96 96 Oxygen Delivery Room Air Fraction of Inspired Oxygen 07/02/25 12:00 07/02/25 14:00 07/02/25 14:00 Temperature 98.5 F Pulse Rate 104 H 92 92 Respiratory Rate 17 Blood Pressure 142/87 H Pulse Oximetry 96 Oxygen Delivery Fraction of Inspired Oxygen 07/02/25 14:00 07/02/25 16:25 Temperature Pulse Rate 101 H 97 Respiratory Rate 19 Blood Pressure 142/87 H Pulse Oximetry Oxygen Delivery Fraction of Inspired Oxygen Intake/Output Intake/Output: Intake & Output 06/29/25 06/30/25 07/01/25 07/02/25 23:59 23:59 23:59 23:59 Intake Total 72529.2 4289.4 02944.7 41352.0 Output Total 96433 8950 94969 37128 [employer]882.8 -4660.6 -3993.3 -4905.0 Meds/Results Medications: Active Medications Generic Name Dose Route Start Last Admin Trade Name Freq PRN Reason Stop Dose Admin Acetaminophen 650 mg 06/28/25 01:26 Acetaminophen 650 Mg Suppository RECTAL Q6H PRN Mild Pain (1-3) or Fever Acetaminophen 650 mg 06/29/25 10:38 07/01/25 21:11 Acetaminophen 325 Mg Tablet PO 650 mg Q4H PRN Administration Mild Pain (1-3) or Fever Meropenem 1 gm/ Sodium 100 mls @ 200 mls/hr 06/29/25 08:30 07/02/25 09:50 Chloride IVPB Infused Q12HR EUGENIO Infusion Diltiazem HCl 100 mg in 100 mls @ 7.5 mls/hr 07/01/25 15:30 07/02/25 14:00 Cardizem 100 Mg/100 Ml IV CONT 7.5 mg/hr .[id number] EUGENIO 7.5 mls/hr 7.5 MG/HR Infusion Ipratropium [place] 0.5 mg 06/30/25 14:00 07/02/25 16:25 Ipratropium Br 0.02% Inh Soln 0.5 Mg/2.5 Ml Vial INHALATION 0.5 mg Q6HRT EUGENIO Administration Latanoprost 1 drop 06/28/25 21:00 07/01/25 20:05 Latanoprost 0.005% Op Soln 2.5 Ml Btl EACH EYE 1 drop HS EUGENIO Administration Levalbuterol HCl 0.63 mg 06/30/25 14:00 07/02/25 16:24 Levalbuterol Neb 1.25 Mg/3 Ml INHALATION 0.63 mg Q6HRT EUGENIO Administration Metoprolol Succinate 25 mg 07/03/25 09:00 Metoprolol Succinate Ext Rel 25 Mg Tabcr PO QAM EUGENIO Ondansetron HCl 4 mg 06/28/25 13:33 06/30/25 12:00 Ondansetron Inj 4 Mg/2 Ml Vial IV PUSH 4 mg Q4H PRN Administration Nausea And Vomiting Sodium Chloride 10 ml 06/28/25 14:00 07/02/25 14:14 Central Line Flush IV PUSH 10 ml Q8HR EUGENIO Administration Sodium Chloride 10 ml 06/28/25 13:03 Central Line Flush IV PUSH PRN PRN with TPN bag changes Sodium Chloride 20 ml 06/28/25 13:03 07/02/25 04:29 Central Line Flush IV PUSH 20 ml PRN PRN Administration after blood draws Radiology Results: ITS Impressions Head CT 06/27/25 21:22 IMPRESSION: No acute intracranial hemorrhage or extra axial fluid collections. All CT scans at this facility are performed using low dose modulation techniques as appropriate to perform exam including the following: automated exposure control; use of iterative reconstruction technique; adjustment of the mA and/or kV according to patient size (this includes techniques or standardized protocols for targeted exams where dose is matched to indication/reason for exam). Chest/Abdomen/Pelvis CTA 06/27/25 22:00 IMPRESSION: 1. Hyperdense soft tissue of the bladder lumen, likely blood clot. Limon catheter present in the bladder lumen. 2: No evidence for aortic aneurysm or dissection. 3: Stenosis of the celiac axis, SMA and renal arteries. Carotid Doppler Study 06/28/25 20:17 IMPRESSION: 1. Less than 50% stenosis in the right internal carotid artery by sonographic criteria. 2. Less than 50% stenosis in the left internal carotid artery by sonographic criteria. Chest X-Ray 06/29/25 08:14 Impression: Mild CHF Labs Labs: Laboratory Results - last 24 hr 07/02/25 07/02/25 04:31 04:34 WBC 21.7 H RBC 2.94 L Hgb 8.8 L Hct 26.9 L MCV 91.5 MCH 29.9 MCHC 32.7 RDW 15.7 H Plt Count 79 L MPV 10.8 H Immature Gran % (Auto) 5.2 H Neut % (Auto) 84.5 H Lymph % (Auto) 3.3 L [place] % (Auto) 6.0 Eos % (Auto) 0.4 Baso % (Auto) 0.6 Lymph # (Auto) 0.71 L [place] # (Auto) 1.3 H Eos # (Auto) 0.1 Baso # (Auto) 0.1 Abs Immat Gran (auto) 1.12 H Absolute Neuts (auto) 18.4 H Absolute Nucleated RBC 0.020 H Nucleated RBC % 0.1 % Immature Plt Fraction 4.3 Sodium 133 L Potassium 3.9 Chloride 104 Carbon Dioxide 26 Anion Gap 3 L BUN 39 H Creatinine 1.32 H Estim Creat Clear Calc 31 Estimated GFR 52 L Glucose 92 Calcium 7.9 L Phosphorus 2.6 Magnesium 2.4 H Total Bilirubin 0.7 AST 27 ALT 28 Alkaline Phosphatase 97 Total Protein 5.2 L Albumin 2.7 L
--- NOTE | 2025-07-02 18:00 | PC.NURSE ---
This patient, Khoa Philippe, was transferred to [facility] on 07/02/25 at 1745. Personal belongings sent with patient. Report given to DIONNA Stuart and Evans Sanders RN. Appropriate documentation sent with patient. Patient resting in bed and voiced no complaints or concerns at this time. Call light in reach and bed low and locked. Maddy Sorensen RN
[2025-07-02] MEDS: LATANOPROST 0.005% OP SOLN 2.5 ML BTL 1 DROP EACH EYE (20:40)
--- NOTE | 2025-07-02 21:06 | PCRCNOTE ---
pt continues to refuse use of hospital unit and stated that he no longer uses a cpap at home.
[2025-07-03] VITALS (33 sets, daily range): BP systolic 112–153; BP diastolic 60–99; PULSE 67–135; RESP 12–20; TEMP 36.2–38.8; O2SAT 91–99
[2025-07-03] MEDS: IPRATROPIUM BR 0.02% INH SOLN 0.5 MG/2.5 ML VIAL INHALATION ×4 (02:39→20:38)
[2025-07-03] MEDS: WATER FOR IRRIGATION, STERILE 1,000 ML BOTTLE 1000 ML (05:00)
[2025-07-03] MEDS: dilTIAZem 100 MG/100 ML 100 MG/100 ML BAG 7.5 MG IV CONT (05:30)
[2025-07-03 05:55] LABS: Hematocrit 22.9 % (42.0-52.0); Hemoglobin 7.4 g/dL (14.0-18.0); Immature Platelet Fraction Pct 4.3 % (0.9-11.2); Mean Corpuscular HGB Conc 32.3 g/dl (32-36); Mean Corpuscular Hemoglobin 30.0 pg (26-34); Mean Corpuscular Volume 92.7 fl (80-100); Platelet Count Result 85 k/mm3 (150-375); Red Blood Count 2.47 M/mm3 (4.6-6.20); White Blood Count 19.8 K/mm3 (4.5-10.0)
[2025-07-03] MEDS: CENTRAL LINE FLUSH 10 ML IV PUSH ×3 (06:00→22:25)
[2025-07-03 06:10] LABS: Alanine Aminotransferase 28 U/L (6-50); Albumin Level 2.7 g/dL (3.5-5.1); Alkaline Phosphatase 102 U/L (38-126); Anion Gap 3 mmol/L (4-12); Aspartate Amino Transferase 27 U/L (17-59); Bilirubin,Total 0.8 mg/dL (0.2-1.3); Blood Urea Nitrogen 33 mg/dL (9-20); Calcium 7.9 mg/dL (8.4-10.2); Carbon Dioxide 26 mmol/L (22-30); Chloride 105 mmol/L (98-107); Estimated CRCL calculation 40 ml/min; Estimated Glomerular Filt Rate > 60; Glucose 97 mg/dL (65-110); Magnesium 2.2 mg/dL (1.6-2.3); Potassium 4.3 mmol/L (3.4-5.0); Sodium 134 mmol/L (137-145); Total Protein 5.3 g/dL (6.3-8.2)
--- NOTE | 2025-07-03 07:03 | PC.NURSE ---
Spoke with Dr. Gonzales at 0535 after finding patient's 3 way armstrong cath no longer draining & was not able to be unclogged. Dr. Gonzales advised me to replace the 3 way. Cath system was replaced at 0630 and was patent and draining.
--- NOTE | 2025-07-03 08:40 | P.PNUR_ITS ---
Progress Note: A&P Assessment and Plan (1) Gross hematuria: Code(s): R31.0 - Gross hematuria Status: Acute Assessment and Plan: - Limon catheter exchanged this AM; currently patent - Urine continues to clear on CBI, urine currently lightly pink and no clots noted in tube/bag. Continue today and monitor for improvement; if cleared further will perform clamp trial of CBI. - Continue to trend Hgb, slighlty down today at 7.4 (2) UTI (urinary tract infection): Qualifiers: Hematuria presence: with hematuria Urinary tract infection type: acute cystitis Qualified Code(s): N30.01 - Acute cystitis with hematuria Code(s): N39.0 - Urinary tract infection, site not specified Status: Acute Assessment and Plan: - UCx growing out E. Coli - Continue culture driven Abx (3) Urinary retention: Code(s): R33.9 - Retention of urine, unspecified Status: Inactive Assessment and Plan: - Prior to presentation for gross hematuria pt had passed void trial in clinic - Unclear if recurrent retention is related to bladder neck obstruction vs clot retention - Will address once urine is cleared with void trial prior to discharge vs in outpatient clinic Subjective Subjective Date/Time Seen: 07/03/25 08:40 Interval history: Pt resting comfortably in bed. States Limon catheter stopped draining last night and had to be exchanged this morning. Since this time has been draining clear pink urine with mininmal blood clots. Exam Const: General: no acute distress Eyes: General: appearance normal, both eyes and all related structures Resp: Effort & Inspection: normal respiratory effort GI: Inspection: non-distended Urinary Catheter: Urinary Catheter: patent and draining, urine clear (very light pink) and urine pink Neuro: Speech: normal speech Objective Data Vital Signs Vital Signs: Vital Signs - 24 hr 07/02/25 08:48 07/02/25 09:55 07/02/25 10:00 Temperature 36.8 C Pulse Rate 98 107 H 107 H Respiratory Rate 18 18 Blood Pressure 140/80 140/80 Pulse Oximetry 94 Oxygen Delivery Fraction of Inspired Oxygen 07/02/25 10:00 07/02/25 12:00 07/02/25 12:00 Temperature 36.8 C Pulse Rate 95 94 94 Respiratory Rate 16 Blood Pressure 124/83 124/83 Pulse Oximetry 96 Oxygen Delivery Fraction of Inspired Oxygen 07/02/25 12:00 07/02/25 12:00 07/02/25 14:00 Temperature Pulse Rate 104 H 92 Respiratory Rate Blood Pressure Pulse Oximetry 96 Oxygen Delivery Room Air Fraction of Inspired Oxygen 07/02/25 14:00 07/02/25 14:00 07/02/25 16:00 Temperature 36.9 C Pulse Rate 92 101 H Respiratory Rate 17 Blood Pressure 142/87 H 142/87 H Pulse Oximetry 96 96 Oxygen Delivery Room Air Fraction of Inspired Oxygen 07/02/25 16:00 07/02/25 16:00 07/02/25 16:00 Temperature 36.8 C Pulse Rate 107 H 105 H 102 H Respiratory Rate 22 H Blood Pressure 134/87 134/87 Pulse Oximetry 97 Oxygen Delivery Fraction of Inspired Oxygen 07/02/25 16:25 07/02/25 16:34 07/02/25 17:21 Temperature Pulse Rate 97 96 95 Respiratory Rate 19 19 Blood Pressure 132/62 Pulse Oximetry Oxygen Delivery Fraction of Inspired Oxygen 07/02/25 17:21 07/02/25 18:00 07/02/25 18:00 Temperature Pulse Rate 95 103 H 104 H Respiratory Rate Blood Pressure 132/62 122/68 Pulse Oximetry 92 Oxygen Delivery Fraction of Inspired Oxygen 07/02/25 20:00 07/02/25 20:00 07/02/25 20:00 Temperature 36.8 C Pulse Rate 92 92 104 H Respiratory Rate 14 Blood Pressure 130/79 130/79 Pulse Oximetry 97 Oxygen Delivery Fraction of Inspired Oxygen 07/02/25 20:00 07/02/25 21:04 07/02/25 21:04 Temperature Pulse Rate 88 Respiratory Rate 18 Blood Pressure Pulse Oximetry 95 Oxygen Delivery Room Air Room Air Fraction of Inspired Oxygen 07/02/25 21:12 07/02/25 22:00 07/02/25 22:00 Temperature Pulse Rate 85 88 88 Respiratory Rate 18 Blood Pressure 124/68 124/68 Pulse Oximetry Oxygen Delivery Fraction of Inspired Oxygen 07/02/25 22:00 07/03/25 00:00 07/03/25 00:00 Temperature 36.6 C Pulse Rate 95 78 78 Respiratory Rate 14 Blood Pressure 131/77 131/77 Pulse Oximetry 97 Oxygen Delivery Fraction of Inspired Oxygen 07/03/25 00:00 07/03/25 00:00 07/03/25 02:00 Temperature Pulse Rate 99 70 Respiratory Rate Blood Pressure Pulse Oximetry Oxygen Delivery Room Air Fraction of Inspired Oxygen 07/03/25 02:00 07/03/25 02:00 07/03/25 02:41 Temperature Pulse Rate 70 70 78 Respiratory Rate 18 Blood Pressure 129/82 129/82 Pulse Oximetry Oxygen Delivery Fraction of Inspired Oxygen 07/03/25 03:36 07/03/25 04:00 07/03/25 04:00 Temperature 36.9 C Pulse Rate 86 72 Respiratory Rate 12 Blood Pressure 127/68 127/68 Pulse Oximetry 97 Oxygen Delivery Room Air Fraction of Inspired Oxygen 07/03/25 04:00 07/03/25 05:30 07/03/25 05:30 Temperature Pulse Rate 67 78 78 Respiratory Rate Blood Pressure 127/68 127/68 Pulse Oximetry Oxygen Delivery Fraction of Inspired Oxygen 07/03/25 05:48 07/03/25 06:00 07/03/25 06:00 Temperature Pulse Rate 74 82 82 Respiratory Rate Blood Pressure 150/82 H 150/82 H Pulse Oximetry Oxygen Delivery Fraction of Inspired Oxygen 07/03/25 08:00 07/03/25 08:30 07/03/25 08:30 Temperature 36.8 C Pulse Rate 120 H 112 H Respiratory Rate 12 20 Blood Pressure 153/99 H Pulse Oximetry 99 96 Oxygen Delivery Room Air Fraction of Inspired Oxygen 21 07/03/25 08:36 Temperature Pulse Rate 110 H Respiratory Rate 20 Blood Pressure Pulse Oximetry Oxygen Delivery Fraction of Inspired Oxygen Intake/Output Intake/Output: Intake & Output 06/30/25 07/01/25 07/02/25 07/03/25 23:59 23:59 23:59 23:59 Intake Total 4289.4 44064.7 27027.0 20647.1 Output Total 8950 69214 44454 23237 Balance -4660.6 -3993.3 -6920.0 -1439.9 Meds/Results Medications: Active Medications Generic Name Dose Route Start Last Admin Trade Name Freq PRN Reason Stop Dose Admin Acetaminophen 650 mg 06/28/25 01:26 Acetaminophen 650 Mg Suppository RECTAL Q6H PRN Mild Pain (1-3) or Fever Acetaminophen 650 mg 06/29/25 10:38 07/01/25 21:11 Acetaminophen 325 Mg Tablet PO 650 mg Q4H PRN Administration Mild Pain (1-3) or Fever Meropenem 1 gm/ Sodium 100 mls @ 200 mls/hr 06/29/25 08:30 07/02/25 20:45 Chloride IVPB Infused Q12HR EUGENIO Infusion Diltiazem HCl 100 mg in 100 mls @ 7.5 mls/hr 07/01/25 15:30 07/03/25 06:00 Cardizem 100 Mg/100 Ml IV CONT 7.5 mg/hr .[id number] EUGENIO 7.5 mls/hr 7.5 MG/HR Infusion Ipratropium [place] 0.5 mg 06/30/25 14:00 07/03/25 08:30 Ipratropium Br 0.02% Inh Soln 0.5 Mg/2.5 Ml Vial INHALATION 0.5 mg Q6HRT EUGENIO Administration Latanoprost 1 drop 06/28/25 21:00 07/02/25 20:40 Latanoprost 0.005% Op Soln 2.5 Ml Btl EACH EYE 1 drop HS EUGENIO Administration Levalbuterol HCl 0.63 mg 06/30/25 14:00 07/03/25 08:30 Levalbuterol Neb 1.25 Mg/3 Ml INHALATION 0.63 mg Q6HRT EUGENIO Administration Metoprolol Succinate 25 mg 07/03/25 09:00 Metoprolol Succinate Ext Rel 25 Mg Tabcr PO QAM EUGENIO Ondansetron HCl 4 mg 06/28/25 13:33 06/30/25 12:00 Ondansetron Inj 4 Mg/2 Ml Vial IV PUSH 4 mg Q4H PRN Administration Nausea And Vomiting Sodium Chloride 10 ml 06/28/25 14:00 07/03/25 06:00 Central Line Flush IV PUSH 10 ml Q8HR EUGENIO Administration Sodium Chloride 10 ml 06/28/25 13:03 Central Line Flush IV PUSH PRN PRN with TPN bag changes Sodium Chloride 20 ml 06/28/25 13:03 07/02/25 04:29 Central Line Flush IV PUSH 20 ml PRN PRN Administration after blood draws Radiology Results: ITS Impressions Head CT 06/27/25 21:22 IMPRESSION: No acute intracranial hemorrhage or extra axial fluid collections. All CT scans at this facility are performed using low dose modulation techniques as appropriate to perform exam including the following: automated exposure control; use of iterative reconstruction technique; adjustment of the mA and/or kV according to patient size (this includes techniques or standardized protocols for targeted exams where dose is matched to indication/reason for exam). Chest/Abdomen/Pelvis CTA 06/27/25 22:00 IMPRESSION: 1. Hyperdense soft tissue of the bladder lumen, likely blood clot. Limon catheter present in the bladder lumen. 2: No evidence for aortic aneurysm or dissection. 3: Stenosis of the celiac axis, SMA and renal arteries. Carotid Doppler Study 06/28/25 20:17 IMPRESSION: 1. Less than 50% stenosis in the right internal carotid artery by sonographic criteria. 2. Less than 50% stenosis in the left internal carotid artery by sonographic criteria. Chest X-Ray 06/29/25 08:14 Impression: Mild CHF Labs Labs: Laboratory Results - last 24 hr 07/03/25 05:38 WBC 19.8 H RBC 2.47 L Hgb 7.4 L Hct 22.9 L MCV 92.7 MCH 30.0 MCHC 32.3 RDW 15.8 H Plt Count 85 L MPV 10.6 H % Immature Plt Fraction 4.3 Sodium 134 L Potassium 4.3 Chloride 105 Carbon Dioxide 26 Anion Gap 3 L BUN 33 H Creatinine 1.14 Estim Creat Clear Calc 40 Estimated GFR > 60 Glucose 97 Calcium 7.9 L Magnesium 2.2 Total Bilirubin 0.8 AST 27 ALT 28 Alkaline Phosphatase 102 Total Protein 5.3 L Albumin 2.7 L
[2025-07-03] MEDS: MEROPENEM 1 GM in SODIUM CHLORIDE 0.9% IV 100 ML 200 ML IVPB ×2 (08:54→20:03)
[2025-07-03] MEDS: METOPROLOL SUCCINATE EXT REL 25 MG TABCR PO (08:55)
--- NOTE | 2025-07-03 09:19 | P.PNCA_ITS ---
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 Elevated cardiac troponin T in absence of chest pain OR ischemic ST changes on EKG suggestive of non ST segment elevation myocardial infarction. Patient has significant anemia and elevated creatinine which is contributing to this type 2, non thrombotic myocardial injury. 2. Known history of prostate cancer. Status post the prostate procedure no followed by removal of catheter and patient has hematuria with clots. 3. History of paroxysmal atrial fibrillation. EKG reveals normal sinus rhythm on admission. Patient is on apixaban as well as aspirin at home. 4. Acute blood loss anemia with hemoglobin as low as 8.0. 5. Sepsis with mental status changes. Improved 6. Chronic 3B kidney failure. Creatinine has improved and is at 1.3 today. 7. Hypotension on admission. Blood pressure does remain low and most recent is 95/68 mm of mercury with heart rate of 132 per minute. 8. Paroxysmal atrial fibrillation with rapid ventricular response noted this morning. EKG this morning shows atrial fibrillation with heart rate 172 per minute. Recommendations: 1. REGARDING HIS ATRIAL FIBRILLATION, continue diltiazem drip decreased to 5 milligrams/hour today. Hopefully he converts back to sinus now that his acute illness has improved. Continue metoprolol succinate 25 mg daily with intentions of weaning him off the diltiazem eventually. 2. Hematuria is resolving. Continue to hold systemic anticoagulation for now and resume if/when able. LONG-TERM, CONSIDER LEFT ATRIAL APPENDAGE OCCLUDING DEVICE 3. Continue telemetry monitoring. Subjective Date/time seen: 07/03/25 09:19 Interval history: The patient is 85-year-old male admitted on 06/27/2025 with the complaints of weakness and hematuria with clots. Patient has known history of atrial fibrillation, hypertension and prostate cancer as well as Navarro and esophageal reflux disease DATE OF SERVICE 07/02/2025: He has no chest pain, shortness of breath. Heart rate does increase with mild activity. Date of service 07/03/2025: He states that he had a rough night and did not sleep very well. Otherwise feels okay. He denies any palpitations, chest pain, shortness of breath. Review of Systems Review of Systems: Twelve point review of system was completed. Pertinent positive and negative findings per HPI. Constitutional positive for weakness the and recent fall. Negative for fever or chills. Head and neck is negative Cardiovascular negative for chest pain or shortness of breath or palpitation. Pulmonary system negative for shortness of breath, wheezing or hemoptysis. Gastrointestinal system negative for abdominal pain, nausea vomiting or diarrhea. Genitourinary system positive for recent prostate surgery, removal of Limon catheter and hematuria with clot Neurovascular positive for recent episode of mental status changes and fall on the ground the patient does not remember Musculoskeletal positive for bruises on the knee. All systems reviewed & are unremarkable except as noted in HPI and below Constitutional: Constitutional: Denies difficulty sleeping ENT: Reports Normal hearing present Cardiovascular: Cardiovascular: Denies chest pain and Denies dyspnea Respiratory: Respiratory: Denies dyspnea Genitourinary: Genitourinary: Reports hematuria Neurologic: Reports Normal hearing present Exam Narrative: AWAKE ALERT. APPEARS STATED AGE Const: General: comfortable and no acute distress HENMT: Face/Nose/Sinus: Normal nares present Mouth: Yes moist mucous membranes Eyes: Sclera: sclerae normal Neck: Neck: supple and no JVD Resp: Effort & Inspection: normal respiratory effort Auscultation: clear to auscultation bilaterally Cardio: Rate: regular rate Rhythm: abnormal rhythm irregularly irregular GI: Inspection: non-distended Auscultation: normal bowel sounds Urinary Catheter: Urinary Catheter: patent and draining, urine red and other (CBI) Skin: General skin exam: normal color Neuro: Cranial nerves: Yes Normal hearing present Speech: normal speech Extrem: General: normal to inspection Psych: Affect: normal affect Objective Data Vital Signs Vital Signs: Vital Signs - 24 hr 07/02/25 09:55 07/02/25 10:00 07/02/25 10:00 Temperature 36.8 C Pulse Rate 107 H 107 H 95 Respiratory Rate 18 Blood Pressure 140/80 140/80 Pulse Oximetry 94 Oxygen Delivery Fraction of Inspired Oxygen 07/02/25 12:00 07/02/25 12:00 07/02/25 12:00 Temperature 36.8 C Pulse Rate 94 94 Respiratory Rate 16 Blood Pressure 124/83 124/83 Pulse Oximetry 96 96 Oxygen Delivery Room Air Fraction of Inspired Oxygen 07/02/25 12:00 07/02/25 14:00 07/02/25 14:00 Temperature 36.9 C Pulse Rate 104 H 92 92 Respiratory Rate 17 Blood Pressure 142/87 H Pulse Oximetry 96 Oxygen Delivery Fraction of Inspired Oxygen 07/02/25 14:00 07/02/25 16:00 07/02/25 16:00 Temperature 36.8 C Pulse Rate 101 H 107 H Respiratory Rate 22 H Blood Pressure 142/87 H 134/87 Pulse Oximetry 96 97 Oxygen Delivery Room Air Fraction of Inspired Oxygen 07/02/25 16:00 07/02/25 16:00 07/02/25 16:25 Temperature Pulse Rate 105 H 102 H 97 Respiratory Rate 19 Blood Pressure 134/87 Pulse Oximetry Oxygen Delivery Fraction of Inspired Oxygen 07/02/25 16:34 07/02/25 17:21 07/02/25 17:21 Temperature Pulse Rate 96 95 95 Respiratory Rate 19 Blood Pressure 132/62 132/62 Pulse Oximetry Oxygen Delivery Fraction of Inspired Oxygen 07/02/25 18:00 07/02/25 18:00 07/02/25 20:00 Temperature 36.8 C Pulse Rate 103 H 104 H 92 Respiratory Rate 14 Blood Pressure 122/68 130/79 Pulse Oximetry 92 97 Oxygen Delivery Fraction of Inspired Oxygen 07/02/25 20:00 07/02/25 20:00 07/02/25 20:00 Temperature Pulse Rate 92 104 H Respiratory Rate Blood Pressure 130/79 Pulse Oximetry Oxygen Delivery Room Air Fraction of Inspired Oxygen 07/02/25 21:04 07/02/25 21:04 07/02/25 21:12 Temperature Pulse Rate 88 85 Respiratory Rate 18 18 Blood Pressure Pulse Oximetry 95 Oxygen Delivery Room Air Fraction of Inspired Oxygen 07/02/25 22:00 07/02/25 22:00 07/02/25 22:00 Temperature Pulse Rate 88 88 95 Respiratory Rate Blood Pressure 124/68 124/68 Pulse Oximetry Oxygen Delivery Fraction of Inspired Oxygen 07/03/25 00:00 07/03/25 00:00 07/03/25 00:00 Temperature 36.6 C Pulse Rate 78 78 Respiratory Rate 14 Blood Pressure 131/77 131/77 Pulse Oximetry 97 Oxygen Delivery Room Air Fraction of Inspired Oxygen 07/03/25 00:00 07/03/25 02:00 07/03/25 02:00 Temperature Pulse Rate 99 70 70 Respiratory Rate Blood Pressure 129/82 Pulse Oximetry Oxygen Delivery Fraction of Inspired Oxygen 07/03/25 02:00 07/03/25 02:41 07/03/25 03:36 Temperature 36.9 C Pulse Rate 70 78 86 Respiratory Rate 18 12 Blood Pressure 129/82 127/68 Pulse Oximetry 97 Oxygen Delivery Fraction of Inspired Oxygen 07/03/25 04:00 07/03/25 04:00 07/03/25 04:00 Temperature Pulse Rate 72 67 Respiratory Rate Blood Pressure 127/68 Pulse Oximetry Oxygen Delivery Room Air Fraction of Inspired Oxygen 07/03/25 05:30 07/03/25 05:30 07/03/25 05:48 Temperature Pulse Rate 78 78 74 Respiratory Rate Blood Pressure 127/68 127/68 150/82 H Pulse Oximetry Oxygen Delivery Fraction of Inspired Oxygen 07/03/25 06:00 07/03/25 06:00 07/03/25 08:00 Temperature 36.8 C Pulse Rate 82 82 120 H Respiratory Rate 12 Blood Pressure 150/82 H 153/99 H Pulse Oximetry 99 Oxygen Delivery Fraction of Inspired Oxygen 07/03/25 08:30 07/03/25 08:30 07/03/25 08:36 Temperature Pulse Rate 112 H 110 H Respiratory Rate 20 20 Blood Pressure Pulse Oximetry 96 Oxygen Delivery Room Air Fraction of Inspired Oxygen 21 07/03/25 08:55 Temperature Pulse Rate 96 Respiratory Rate Blood Pressure Pulse Oximetry Oxygen Delivery Fraction of Inspired Oxygen Intake/Output Intake/Output: Intake & Output 06/30/25 07/01/25 07/02/25 07/03/25 23:59 23:59 23:59 23:59 Intake Total 4289.4 80577.7 76056.0 80134.1 Output Total 8950 12763 [id number] [facility]4660.6 -3993.3 -6920.0 -1414.9 Meds/Results Medications: Active Medications Generic Name Dose Route Start Last Admin Trade Name Freq PRN Reason Stop Dose Admin Acetaminophen 650 mg 06/28/25 01:26 Acetaminophen 650 Mg Suppository RECTAL Q6H PRN Mild Pain (1-3) or Fever Acetaminophen 650 mg 06/29/25 10:38 07/01/25 21:11 Acetaminophen 325 Mg Tablet PO 650 mg Q4H PRN Administration Mild Pain (1-3) or Fever Meropenem 1 gm/ Sodium 100 mls @ 200 mls/hr 06/29/25 08:30 07/03/25 08:54 Chloride IVPB 200 mls/hr Q12HR EUGENIO Administration Diltiazem HCl 100 mg in 100 mls @ 7.5 mls/hr 07/01/25 15:30 07/03/25 06:00 Cardizem 100 Mg/100 Ml IV CONT 7.5 mg/hr .[id number] EUGENIO 7.5 mls/hr 7.5 MG/HR Infusion Ipratropium [place] 0.5 mg 06/30/25 14:00 07/03/25 08:30 Ipratropium Br 0.02% Inh Soln 0.5 Mg/2.5 Ml Vial INHALATION 0.5 mg Q6HRT EUGENIO Administration Latanoprost 1 drop 06/28/25 21:00 07/02/25 20:40 Latanoprost 0.005% Op Soln 2.5 Ml Btl EACH EYE 1 drop HS EUGENIO Administration Levalbuterol HCl 0.63 mg 06/30/25 14:00 07/03/25 08:30 Levalbuterol Neb 1.25 Mg/3 Ml INHALATION 0.63 mg Q6HRT EUGENIO Administration Metoprolol Succinate 25 mg 07/03/25 09:00 07/03/25 08:55 Metoprolol Succinate Ext Rel 25 Mg Tabcr PO 25 mg QAM EUGENIO Administration Ondansetron HCl 4 mg 06/28/25 13:33 06/30/25 12:00 Ondansetron Inj 4 Mg/2 Ml Vial IV PUSH 4 mg Q4H PRN Administration Nausea And Vomiting Sodium Chloride 10 ml 06/28/25 14:00 07/03/25 06:00 Central Line Flush IV PUSH 10 ml Q8HR EUGENIO Administration Sodium Chloride 10 ml 06/28/25 13:03 Central Line Flush IV PUSH PRN PRN with TPN bag changes Sodium Chloride 20 ml 06/28/25 13:03 07/02/25 04:29 Central Line Flush IV PUSH 20 ml PRN PRN Administration after blood draws Radiology Results: ITS Impressions Head CT 06/27/25 21:22 IMPRESSION: No acute intracranial hemorrhage or extra axial fluid collections. All CT scans at this facility are performed using low dose modulation techniqu es as appropriate to perform exam including the following: automated exposure control; use of iterative reconstruction technique; adjustment of the mA and/or kV according to patient size (this includes techniques or standardized protocols for targeted exams where dose is matched to indication/reason for exam). Chest/Abdomen/Pelvis CTA 06/27/25 22:00 IMPRESSION: 1. Hyperdense soft tissue of the bladder lumen, likely blood clot. Limon catheter present in the bladder lumen. 2: No evidence for aortic aneurysm or dissection. 3: Stenosis of the celiac axis, SMA and renal arteries. Carotid Doppler Study 06/28/25 20:17 IMPRESSION: 1. Less than 50% stenosis in the right internal carotid artery by sonographic criteria. 2. Less than 50% stenosis in the left internal carotid artery by sonographic criteria. Chest X-Ray 06/29/25 08:14 Impression: Mild CHF Labs Labs: Laboratory Results - last 24 hr 07/03/25 05:38 WBC 19.8 H RBC 2.47 L Hgb 7.4 L Hct 22.9 L MCV 92.7 MCH 30.0 MCHC 32.3 RDW 15.8 H Plt Count 85 L MPV 10.6 H % Immature Plt Fraction 4.3 Sodium 134 L Potassium 4.3 Chloride 105 Carbon Dioxide 26 Anion Gap 3 L BUN 33 H Creatinine 1.14 Estim Creat Clear Calc 40 Estimated GFR > 60 Glucose 97 Calcium 7.9 L Magnesium 2.2 Total Bilirubin 0.8 AST 27 ALT 28 Alkaline Phosphatase 102 Total Protein 5.3 L Albumin 2.7 L
--- NOTE | 2025-07-03 11:52 | P.PNNP_ITS ---
Progress Note: A&P Assessment and Plan (1) Acute kidney injury: Code(s): N17.9 - Acute kidney failure, unspecified Status: Acute Assessment and Plan: * resolved if not back to baseline * as noted by trend of labs on 06/28 (1.01mg/dl --> 1.39mg/dl) * normal creatinine at baseline as of 3 months ago (March 2025) * suspect multifactorial etiology: * urinary obstruction (with clot) * hypotension/shock * infection/sepsis * contrast exposure (CTA on 06/27) * prerenal factors * CARLOS-I use prior to admission * relative anemia * other(?) * s/p IVF resuscitation (on hold due to concerns of volume overload) * urine studies difficult to interpret with ongoing CBI * CT imaging without obstruction * follow trend of repeat labs and UOP (2) Sepsis: Code(s): A41.9 - Sepsis, unspecified organism Status: Acute Assessment and Plan: * presumably due to UTI complicated by blood loss anemia * noted elevated lactic acid and procalcitonin * s/p IVF resuscitation and PRBC transfusion * on vasopressor support - wean as tolerated * follow culture data: * blood cultures (06/27) with E.coli and Proteus mirabilis * repeat blood cultures (07/01) - negative to date * urine culture not done * on antibiotics (3) UTI (urinary tract infection): Qualifiers: Hematuria presence: with hematuria Urinary tract infection type: acute cystitis Qualified Code(s): N30.01 - Acute cystitis with hematuria Code(s): N39.0 - Urinary tract infection, site not specified Status: Acute Assessment and Plan: * suspected by admission UA * however, no urine culture done * on antibiotics (4) Paroxysmal A-fib: Code(s): I48.0 - Paroxysmal atrial fibrillation Status: Acute Assessment and Plan: * attempting rate control strategy * on cardizem gtt * on oral metoprolol * anticoagulation on hold due to hematuria/anemia * Cardiology following with recommendations noted (5) Hematuria: Code(s): R31.9 - Hematuria, unspecified Status: Acute Assessment and Plan: * persistent hematuria ~ 4 weeks * Urology following: * s/p armstrong catheter placement/exchange on admission * on CBI * 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 L Subjective Date/time seen: 07/03/25 11:52 Interval history: Follow-up for acute kidney injury/acute renal failure. Chart reviewed since last seen -- renal function/creatinine has normalized/back to baseline; transferred out of ICU, no acute complaints other that difficulty sleeping last night; armstrong catheter still with pinkish urine with minimal clots. Exam 2 Narrative: General: elderly but WD/WN male in NAD Heart: IRRR, normal S1 and S2; no rub Lungs: coarse and decreased at bases Abdomen: soft, nontender, nondistended, positive bowel sounds Extremities: no cyanosis or clubbing; trace edema Skin: warm and intact Objective Data Vital Signs Vital Signs: Vital Signs Temp Pulse Resp BP Pulse Ox O2 Del Method FiO2 07/03/25 11:44 109 H 117/83 07/03/25 11:42 97.7 F 109 H 12 117/83 97 07/03/25 10:00 105 H 118/66 07/03/25 10:00 100 07/03/25 09:59 105 H 118/66 91 07/03/25 08:55 96 07/03/25 08:36 110 H 20 07/03/25 08:30 96 Room Air 21 07/03/25 08:30 112 H 20 07/03/25 08:00 135 H 07/03/25 08:00 135 H 153/99 H 07/03/25 08:00 98.3 F 120 H 12 153/99 H 99 07/03/25 06:00 82 07/03/25 06:00 82 150/82 H 07/03/25 05:48 74 150/82 H 07/03/25 05:30 78 127/68 07/03/25 05:30 78 127/68 07/03/25 04:00 67 07/03/25 04:00 72 127/68 07/03/25 04:00 Room Air 07/03/25 03:36 98.4 F 86 12 127/68 97 07/03/25 02:41 78 18 07/03/25 02:00 70 129/82 07/03/25 02:00 70 129/82 07/03/25 02:00 70 07/03/25 00:00 99 07/03/25 00:00 Room Air 07/03/25 00:00 78 131/77 07/03/25 00:00 97.9 F 78 14 131/77 97 07/02/25 22:00 95 07/02/25 22:00 88 124/68 07/02/25 22:00 88 124/68 07/02/25 21:12 85 18 07/02/25 21:04 88 18 07/02/25 21:04 95 Room Air 07/02/25 20:00 Room Air 07/02/25 20:00 104 H 07/02/25 20:00 92 130/79 07/02/25 20:00 98.2 F 92 14 130/79 97 Intake/Output Intake/Output: Intake & Output 06/30/25 07/01/25 07/02/25 07/03/25 23:59 23:59 23:59 23:59 Intake Total 4289.4 58191.7 80848.0 57486.8 Output Total 8950 75964 86131 10850 Balance -4660.6 -3993.3 -6920.0 -2215.2 Meds/Results Medications: Active Medications Generic Name Dose Route Start Last Admin Trade Name Freq PRN Reason Stop Dose Admin Acetaminophen 650 mg 06/28/25 01:26 Acetaminophen 650 Mg Suppository RECTAL Q6H PRN Mild Pain (1-3) or Fever Acetaminophen 650 mg 06/29/25 10:38 07/03/25 13:37 Acetaminophen 325 Mg Tablet PO 650 mg Q4H PRN Administration Mild Pain (1-3) or Fever Meropenem 1 gm/ Sodium 100 mls @ 200 mls/hr 06/29/25 08:30 07/03/25 10:00 Chloride IVPB Infused Q12HR EUGENIO Infusion Diltiazem HCl 100 mg in 100 mls @ 5 mls/hr 07/01/25 15:30 07/03/25 18:05 Cardizem 100 Mg/100 Ml IV CONT 5 mg/hr .Q20H EUGENIO 5 mls/hr 5 MG/HR Infusion Ipratropium [place] 0.5 mg 06/30/25 14:00 07/03/25 15:03 Ipratropium Br 0.02% Inh Soln 0.5 Mg/2.5 Ml Vial INHALATION 0.5 mg Q6HRT EUGENIO Administration Latanoprost 1 drop 06/28/25 21:00 07/02/25 20:40 Latanoprost 0.005% Op Soln 2.5 Ml Btl EACH EYE 1 drop HS EUGENIO Administration Levalbuterol HCl 0.63 mg 06/30/25 14:00 07/03/25 15:03 Levalbuterol Neb 1.25 Mg/3 Ml INHALATION 0.63 mg Q6HRT EUGENIO Administration Metoprolol Succinate 25 mg 07/03/25 09:00 07/03/25 08:55 Metoprolol Succinate Ext Rel 25 Mg Tabcr PO 25 mg QAM EUGENIO Administration Ondansetron HCl 4 mg 06/28/25 13:33 06/30/25 12:00 Ondansetron Inj 4 Mg/2 Ml Vial IV PUSH 4 mg Q4H PRN Administration Nausea And Vomiting Sodium Chloride 10 ml 06/28/25 14:00 07/03/25 14:19 Central Line Flush IV PUSH 10 ml Q8HR EUGENIO Administration Sodium Chloride 10 ml 06/28/25 13:03 Central Line Flush IV PUSH PRN PRN with TPN bag changes Sodium Chloride 20 ml 06/28/25 13:03 07/02/25 04:29 Central Line Flush IV PUSH 20 ml PRN PRN Administration after blood draws Radiology Results: ITS Impressions Head CT 06/27/25 21:22 IMPRESSION: No acute intracranial hemorrhage or extra axial fluid collections. All CT scans at this facility are performed using low dose modulation techniques as appropriate to perform exam including the following: automated exposure control; use of iterative reconstruction technique; adjustment of the mA and/or kV according to patient size (this includes techniques or standardized protocols for targeted exams where dose is matched to indication/reason for exam). Chest/Abdomen/Pelvis CTA 06/27/25 22:00 IMPRESSION: 1. Hyperdense soft tissue of the bladder lumen, likely blood clot. Armstrong catheter present in the bladder lumen. 2: No evidence for aortic aneurysm or dissection. 3: Stenosis of the celiac axis, SMA and renal arteries. Carotid Doppler Study 06/28/25 20:17 IMPRESSION: 1. Less than 50% stenosis in the right internal carotid artery by sonographic criteria. 2. Less than 50% stenosis in the left internal carotid artery by sonographic criteria. Chest X-Ray 06/29/25 08:14 Impression: Mild CHF Pelvis Ultrasound 07/03/25 12:59 IMPRESSION: Probable large clot in the urinary bladder which is poorly distended and otherwise not well evaluated. Labs Labs: Laboratory Tests 07/03/25 13:33 07/03/25 13:33 07/03/25 05:38 WBC 19.8 H Hgb 7.4 L Hct 22.9 L Plt Count 85 L Sodium 134 L Potassium 4.3 Chloride 105 Carbon Dioxide 26 Anion Gap 3 L BUN 33 H Creatinine 1.14 Estim Creat Clear Calc 40 Estimated GFR > 60 Glucose 97 Calcium 7.9 L Magnesium 2.2 Total Bilirubin 0.8 AST 27 ALT 28 Alkaline Phosphatase 102 Total Protein 5.3 L Albumin 2.7 L Microbiology 07/01/25 09:28 Blood Blood Culture - Preliminary 07/01/25 09:28 Blood Blood Culture - Preliminary 06/27/25 23:08 Blood Blood Culture - Preliminary Escherichia coli Proteus mirabilis
--- NOTE | 2025-07-03 12:42 | PCPTNOTE ---
Attempted to see patient for PT, per RN advised not to see patient/hold for therapy this date.
--- NOTE | 2025-07-03 13:10 | PCOTNOTE ---
Per RN, Patient not to be seen this date, not appropriate today for services.
[2025-07-03] MEDS: ACETAMINOPHEN 325 MG TABLET 650 MG PO (13:37)
[2025-07-03 13:41] LABS: Hematocrit 31.1 % (42.0-52.0); Hemoglobin 10.0 g/dL (14.0-18.0); Mean Corpuscular HGB Conc 32.2 g/dl (32-36); Mean Corpuscular Hemoglobin 29.6 pg (26-34); Mean Corpuscular Volume 92.0 fl (80-100); Platelet Count Result 143 k/mm3 (150-375); Red Blood Count 3.38 M/mm3 (4.6-6.20); White Blood Count 24.2 K/mm3 (4.5-10.0)
--- NOTE | 2025-07-03 13:52 | PM.IMPN ---
Progress Note: A&P Assessment and Plan (1) Sepsis: Code(s): A41.9 - Sepsis, unspecified organism Status: Acute Assessment and Plan: -his white count was noted to be 20.6 -his heart rate is fast but his blood pressure is normal. -he has chills but no fever. -blood cultures are pending. -patient was empirically placed on Rocephin, doxycycline, and vancomycin. -daily CBC -the patient is lethargic and will only open his eyes when his name is called out. -source unknown at this time. -may consider Infectious Disease consult. -check lactic daily. Lactic is 3.3 -continue with IV fluids -no open areas noted at this time. No skin tears, no abrasions, and no open areas. (2) Paroxysmal A-fib: Code(s): I48.0 - Paroxysmal atrial fibrillation Status: Acute Assessment and Plan: -the patient is in sinus tachycardia with occasional supraventricular premature complexes. -the patient had been on Eliquis in the past but recently had hematuria and was taken off of the blood thinner. -patient was given a dose of Cardizem in the emergency room. -continue with metoprolol -continue with IV fluids as the patient currently has tachycardia with premature supraventricular beats (3) Hypertension: Code(s): I10 - Essential (primary) hypertension Status: Acute Assessment and Plan: -patient's blood pressure is currently 133/57. -resume home medications when the patient is awake enough to take oral medication and if blood pressure allows. (4) Sleep apnea: Qualifiers: Sleep apnea type: obstructive Qualified Code(s): G47.33 - Obstructive sleep apnea (adult) (pediatric) Code(s): G47.30 - Sleep apnea, unspecified Status: Acute Assessment and Plan: Continue with auto titrate for CPAP/BiPAP (5) Hyponatremia: Code(s): E87.1 - Hypo-osmolality and hyponatremia Status: Acute Assessment and Plan: -most likely related to dehydration. -continue with IV fluids. Monitor closely as to not cause fluid overload (last echo 07/21/2024 shows a normal left ventricular size with a preserved systolic contractility.) -check urine osmolality and urine sodium. 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 -Chest/Abdomen/Pelvis CTA 06/27/25 22:00 IMPRESSION: 1. Hyperdense soft tissue of the bladder lumen, likely blood clot. Limon catheter present in the bladder lumen. 2: No evidence for aortic aneurysm or dissection. 3: Stenosis of the celiac axis, SMA and renal arteries. May consider vascular consult outpatient (7) Encephalopathy: Code(s): G93.40 - Encephalopathy, unspecified Status: Acute Assessment and Plan: -could be due to infectious process. -could be related to the dehydration. -Head CT 06/27/25 21:22 IMPRESSION: No acute intracranial hemorrhage or extra axial fluid collections. -continue with neuro checks every 4 hours. -neurology consult. -a stroke workup which include an echo with bubble, an ultrasound of the carotids, as well as an MRI of the brain (8) Hypoxia: Code(s): R09.02 - Hypoxemia Status: Acute Assessment and Plan: -titrate oxygen to keep O2 saturations above 92%. -trend troponin -check an echo, last echo on 07/21/2024 was read as a following Summary 1. Definity contrast injected to improve visualization. 2. Normal left ventricular size with preserved systolic contractility. 3. Markedly dilated left atrium. 4. Mild MR. 5. Atrial fibrillation. (9) Hematuria: Code(s): R31.9 - Hematuria, unspecified Status: Acute Assessment and Plan: -consult urology -every 6 hour H&H -the patient has a history of prostate cancer. Is reported that the patient had a procedure within the last 2 weeks. -Limon catheter was placed in the emergency room. -H&H is currently 9.9 and 30.6. Plan patient with septic shock most likely 2/2 UTI, patient blood pressure is trending up and patient is off low pressures, patient with Atrial flutter seen by contact center manager and patient is on diltiazem drip and rate is trending down, and started on metoprolol in home to wean patient off diltiazem drip, patient blood culture is growing multiple organisms E coli, and Proteus mirabilis, patient is being treated with meropenem, patient with hematuria suspect most likely due to UTI with history of radiation therapy, cystitis , patient is on CBI and hematuria is improving, patient is seen by real estate developer and urologist. patient clinical symptoms are improving. his family is present gave updates. Subjective Date/time seen: 07/03/25 13:52 Interval history: Weakness and hematuria H&P-Narrative: This is an 85-year-old male patient who resides with his . He has a history of paroxysmal AFib, GERD, hypertension and prostate cancer. The patient previously had gone through some urology procedures over the last 2 weeks. The patient was sent home with Limon catheter which was subsequently removed today. Patient was sent home without a Limon catheter. When the patient got home today he went to the bathroom and then does not recall getting back on the couch. Is reported that the saw him get down on his knees and slumped over on the ground and fell asleep. When EMS came with to their home it was noted that the patient was down for few hours. He denies any chest pain or shortness of breath any abdominal pain, nausea, vomiting, or headache. Head CT was read as no acute intracranial hemorrhage or extra-axial fluid collections. Chest/abdomen/pelvis CTA was read as a followingIMPRESSION: 1. Hyperdense soft tissue of the bladder lumen, likely blood clot. Limon catheter present in the bladder lumen. 2: No evidence for aortic aneurysm or dissection. 3: Stenosis of the celiac axis, SMA and renal arteries. The patient is very lethargic and not answering questions. Lab 20.6 with H&H 9.9 and 30.6 on his hematology. ABGs pH 7.480 with low bicarb and PO2 was low at 73.4. Oxygen was applied at 2 L per nasal cannula. His heart rate has been in the 1 teens with blood pressure 145/77. His lowest O2 saturation was 85 point has come up to 97%. Sodium was low at 129. His glucose is 116. Lactic is 3.3. Calcium is low at 8.3. Urine is turbid with 3+ protein, 2+ ketones, 3+ blood, 1+ urine bilirubin, 51-100 rbc's. Patient was given diltiazem IV push x1 Benadryl, prednisone, morphine, Rocephin, and IV fluids. The Limon catheter was placed in the emergency room patient with septic shock most likely 2/2 UTI, patient blood pressure is trending up and patient is off low pressures, patient with Atrial flutter seen by contact center manager and patient is on diltiazem drip and rate is trending down, and started on metoprolol in home to wean patient off diltiazem drip, patient blood culture is growing multiple organisms E coli, and Proteus mirabilis, patient is being treated with meropenem, patient with hematuria suspect most likely due to UTI with history of radiation therapy, cystitis , patient is on CBI and hematuria is improving, patient is seen by real estate developer and urologist. patient clinical symptoms are improving. his family is present gave updates. Review of Systems Review of Systems: ROS unobtainable: Yes unobtainable due to mental status Exam Narrative: Patient is comfortable, NAD HEENT: eyes are clear and none icteric LUNGS:CTA HEART: RR S1S2 ABD: BS+, Soft and nontender Lower extremities: no edema SKIN: nonjaundiced Neuro: grossly intact. Objective Data Vital Signs Vital Signs: Vital Signs - 24 hr 07/02/25 14:00 07/02/25 14:00 07/02/25 14:00 Temperature 36.9 C Pulse Rate 92 92 101 H Respiratory Rate 17 Blood Pressure 142/87 H 142/87 H Pulse Oximetry 96 Oxygen Delivery Fraction of Inspired Oxygen 07/02/25 16:00 07/02/25 16:00 07/02/25 16:00 Temperature 36.8 C Pulse Rate 107 H 105 H Respiratory Rate 22 H Blood Pressure 134/87 134/87 Pulse Oximetry 96 97 Oxygen Delivery Room Air Fraction of Inspired Oxygen 07/02/25 16:00 07/02/25 16:25 07/02/25 16:34 Temperature Pulse Rate 102 H 97 96 Respiratory Rate 19 19 Blood Pressure Pulse Oximetry Oxygen Delivery Fraction of Inspired Oxygen 07/02/25 17:21 07/02/25 17:21 07/02/25 18:00 Temperature Pulse Rate 95 95 103 H Respiratory Rate Blood Pressure 132/62 132/62 122/68 Pulse Oximetry 92 Oxygen Delivery Fraction of Inspired Oxygen 07/02/25 18:00 07/02/25 20:00 07/02/25 20:00 Temperature 36.8 C Pulse Rate 104 H 92 92 Respiratory Rate 14 Blood Pressure 130/79 130/79 Pulse Oximetry 97 Oxygen Delivery Fraction of Inspired Oxygen 07/02/25 20:00 07/02/25 20:00 07/02/25 21:04 Temperature Pulse Rate 104 H Respiratory Rate Blood Pressure Pulse Oximetry 95 Oxygen Delivery Room Air Room Air Fraction of Inspired Oxygen 07/02/25 21:04 07/02/25 21:12 07/02/25 22:00 Temperature Pulse Rate 88 85 88 Respiratory Rate 18 18 Blood Pressure 124/68 Pulse Oximetry Oxygen Delivery Fraction of Inspired Oxygen 07/02/25 22:00 07/02/25 22:00 07/03/25 00:00 Temperature 36.6 C Pulse Rate 88 95 78 Respiratory Rate 14 Blood Pressure 124/68 131/77 Pulse Oximetry 97 Oxygen Delivery Fraction of Inspired Oxygen 07/03/25 00:00 07/03/25 00:00 07/03/25 00:00 Temperature Pulse Rate 78 99 Respiratory Rate Blood Pressure 131/77 Pulse Oximetry Oxygen Delivery Room Air Fraction of Inspired Oxygen 07/03/25 02:00 07/03/25 02:00 07/03/25 02:00 Temperature Pulse Rate 70 70 70 Respiratory Rate Blood Pressure 129/82 129/82 Pulse Oximetry Oxygen Delivery Fraction of Inspired Oxygen 07/03/25 02:41 07/03/25 03:36 07/03/25 04:00 Temperature 36.9 C Pulse Rate 78 86 Respiratory Rate 18 12 Blood Pressure 127/68 Pulse Oximetry 97 Oxygen Delivery Room Air Fraction of Inspired Oxygen 07/03/25 04:00 07/03/25 04:00 07/03/25 05:30 Temperature Pulse Rate 72 67 78 Respiratory Rate Blood Pressure 127/68 127/68 Pulse Oximetry Oxygen Delivery Fraction of Inspired Oxygen 07/03/25 05:30 07/03/25 05:48 07/03/25 06:00 Temperature Pulse Rate 78 74 82 Respiratory Rate Blood Pressure 127/68 150/82 H 150/82 H Pulse Oximetry Oxygen Delivery Fraction of Inspired Oxygen 07/03/25 06:00 07/03/25 08:00 07/03/25 08:00 Temperature 36.8 C Pulse Rate 82 120 H 135 H Respiratory Rate 12 Blood Pressure 153/99 H Pulse Oximetry 99 Oxygen Delivery Fraction of Inspired Oxygen 07/03/25 08:30 07/03/25 08:30 07/03/25 08:36 Temperature Pulse Rate 112 H 110 H Respiratory Rate 20 20 Blood Pressure Pulse Oximetry 96 Oxygen Delivery Room Air Fraction of Inspired Oxygen 21 07/03/25 08:55 07/03/25 09:58 07/03/25 09:59 Temperature Pulse Rate 96 105 H 105 H Respiratory Rate Blood Pressure 118/66 118/66 Pulse Oximetry 91 Oxygen Delivery Fraction of Inspired Oxygen 07/03/25 10:00 07/03/25 11:42 07/03/25 11:44 Temperature 36.5 C Pulse Rate 100 109 H 109 H Respiratory Rate 12 Blood Pressure 117/83 117/83 Pulse Oximetry 97 Oxygen Delivery Fraction of Inspired Oxygen 07/03/25 12:00 07/03/25 13:37 Temperature 38.4 C H Pulse Rate 121 H Respiratory Rate Blood Pressure Pulse Oximetry Oxygen Delivery Fraction of Inspired Oxygen Intake/Output Intake/Output: Intake & Output 06/30/25 07/01/25 07/02/25 07/03/25 23:59 23:59 23:59 23:59 Intake Total 4289.4 13113.7 60721.0 94228.2 Output Total 8950 53129 85940 44283 Balance -4660.6 -3993.3 -6920.0 -1221.8 Meds/Results Medications: Active Medications Generic Name Dose Route Start Last Admin Trade Name Freq PRN Reason Stop Dose Admin Acetaminophen 650 mg 06/28/25 01:26 Acetaminophen 650 Mg Suppository RECTAL Q6H PRN Mild Pain (1-3) or Fever Acetaminophen 650 mg 06/29/25 10:38 07/03/25 13:37 Acetaminophen 325 Mg Tablet PO 650 mg Q4H PRN Administration Mild Pain (1-3) or Fever Meropenem 1 gm/ Sodium 100 mls @ 200 mls/hr 06/29/25 08:30 07/03/25 10:00 Chloride IVPB Infused Q12HR EUGENIO Infusion Diltiazem HCl 100 mg in 100 mls @ 5 mls/hr 07/01/25 15:30 07/03/25 11:44 Cardizem 100 Mg/100 Ml IV CONT 5 mg/hr .Q20H EUGENIO 5 mls/hr 5 MG/HR Infusion Ipratropium [place] 0.5 mg 06/30/25 14:00 07/03/25 08:30 Ipratropium Br 0.02% Inh Soln 0.5 Mg/2.5 Ml Vial INHALATION 0.5 mg Q6HRT EUGENIO Administration Latanoprost 1 drop 06/28/25 21:00 07/02/25 20:40 Latanoprost 0.005% Op Soln 2.5 Ml Btl EACH EYE 1 drop HS EUGENIO Administration Levalbuterol HCl 0.63 mg 06/30/25 14:00 07/03/25 08:30 Levalbuterol Neb 1.25 Mg/3 Ml INHALATION 0.63 mg Q6HRT EUGENIO Administration Metoprolol Succinate 25 mg 07/03/25 09:00 07/03/25 08:55 Metoprolol Succinate Ext Rel 25 Mg Tabcr PO 25 mg QAM EUGENIO Administration Ondansetron HCl 4 mg 06/28/25 13:33 06/30/25 12:00 Ondansetron Inj 4 Mg/2 Ml Vial IV PUSH 4 mg Q4H PRN Administration Nausea And Vomiting Sodium Chloride 10 ml 06/28/25 14:00 07/03/25 06:00 Central Line Flush IV PUSH 10 ml Q8HR EUGENIO Administration Sodium Chloride 10 ml 06/28/25 13:03 Central Line Flush IV PUSH PRN PRN with TPN bag changes Sodium Chloride 20 ml 06/28/25 13:03 07/02/25 04:29 Central Line Flush IV PUSH 20 ml PRN PRN Administration after blood draws Radiology Results: ITS Impressions Head CT 06/27/25 21:22 IMPRESSION: No acute intracranial hemorrhage or extra axial fluid collections. All CT scans at this facility are performed using low dose modulation techniques as appropriate to perform exam including the following: automated exposure control; use of iterative reconstruction technique; adjustment of the mA and/or kV according to patient size (this includes techniques or standardized protocols for targeted exams where dose is matched to indication/reason for exam). Chest/Abdomen/Pelvis CTA 06/27/25 22:00 IMPRESSION: 1. Hyperdense soft tissue of the bladder lumen, likely blood clot. Limon catheter present in the bladder lumen. 2: No evidence for aortic aneurysm or dissection. 3: Stenosis of the celiac axis, SMA and renal arteries. Carotid Doppler Study 06/28/25 20:17 IMPRESSION: 1. Less than 50% stenosis in the right internal carotid artery by sonographic criteria. 2. Less than 50% stenosis in the left internal carotid artery by sonographic criteria. Chest X-Ray 06/29/25 08:14 Impression: Mild CHF Pelvis Ultrasound 07/03/25 12:59 IMPRESSION: Probable large clot in the urinary bladder which is poorly distended and otherwise not well evaluated. Labs Labs: Laboratory Results - last 24 hr 07/03/25 07/03/25 07/03/25 05:38 13:32 13:33 WBC 19.8 H 24.2 H RBC 2.47 L 3.38 L Hgb 7.4 L 10.0 L Hct 22.9 L 31.1 L MCV 92.7 92.0 MCH 30.0 29.6 MCHC 32.3 32.2 RDW 15.8 H 15.9 H Plt Count 85 L 143 L D MPV 10.6 H 10.5 H % Immature Plt Fraction 4.3 Sodium 134 L Potassium 4.3 Chloride 105 Carbon Dioxide 26 Anion Gap 3 L BUN 33 H Creatinine 1.14 Estim Creat Clear Calc 40 Estimated GFR > 60 Glucose 97 POC Capillary Glucose 144 H Calcium 7.9 L Magnesium 2.2 Total Bilirubin 0.8 AST 27 ALT 28 Alkaline Phosphatase 102 Total Protein 5.3 L Albumin 2.7 L Quality VTE Prophylaxis VTE prophylaxis: mechanical ordered
[2025-07-03 13:59] LABS: Alanine Aminotransferase 44 U/L (6-50); Albumin Level 3.2 g/dL (3.5-5.1); Alkaline Phosphatase 153 U/L (38-126); Anion Gap 8 mmol/L (4-12); Aspartate Amino Transferase 43 U/L (17-59); Bilirubin,Total 1.1 mg/dL (0.2-1.3); Blood Urea Nitrogen 32 mg/dL (9-20); Calcium 8.4 mg/dL (8.4-10.2); Carbon Dioxide 23 mmol/L (22-30); Chloride 102 mmol/L (98-107); Estimated CRCL calculation 39 ml/min; Estimated Glomerular Filt Rate 59; Glucose 132 mg/dL (65-110); Magnesium 2.3 mg/dL (1.6-2.3); Potassium 5.2 mmol/L (3.4-5.0); Sodium 133 mmol/L (137-145); Total Protein 6.1 g/dL (6.3-8.2)
[2025-07-03] MEDS: dilTIAZem 100 MG/100 ML 100 MG/100 ML BAG IV CONT (20:05)
[2025-07-03] MEDS: LATANOPROST 0.005% OP SOLN 2.5 ML BTL 1 DROP EACH EYE (22:25)
[2025-07-04] VITALS (26 sets, daily range): BP systolic 103–137; BP diastolic 61–88; PULSE 82–142; RESP 14–22; TEMP 36.5–37.2; O2SAT 94–98
[2025-07-04] MEDS: IPRATROPIUM BR 0.02% INH SOLN 0.5 MG/2.5 ML VIAL INHALATION ×4 (02:07→20:15)
[2025-07-04] MEDS: CENTRAL LINE FLUSH 10 ML IV PUSH ×3 (06:02→20:38)
[2025-07-04] MEDS: METOPROLOL SUCCINATE EXT REL 25 MG TABCR PO (08:48)
[2025-07-04] MEDS: MEROPENEM 1 GM in SODIUM CHLORIDE 0.9% IV 100 ML 200 ML IVPB (08:52)
--- NOTE | 2025-07-04 09:26 | WPDUROPN2 ---
Progress Note: A&P Assessment and Plan (1) Gross hematuria: Code(s): R31.0 - Gross hematuria Status: Acute Assessment and Plan: - Pt seen with Dr. Pineda this AM - Limon irrigated with minimal clot output - Patent and draining clear, pink urine without clots in tube/bag - Do not recommend clot evacuation based on findings this AM; can lift NPO order - Continue CBI as urine continues to clear; will consider clamp trial when urine clears significantly (2) UTI (urinary tract infection): Qualifiers: Urinary tract infection type: acute cystitis Hematuria presence: with hematuria Qualified Code(s): N30.01 - Acute cystitis with hematuria Code(s): N39.0 - Urinary tract infection, site not specified Status: Acute Assessment and Plan: - Continue culture driven Abx (3) Urinary retention: Code(s): R33.9 - Retention of urine, unspecified Status: Inactive Assessment and Plan: - Maintain Limon catheter until gross hematuria is cleared - Can consider void trial at that time Subjective Subjective Date/Time Seen: 07/04/25 09:26 Interval history: NAEO; pt resting comfortably in bed. No current complaints. Catheter patent and draining clear, red urine. Objective Data Vital Signs Vital Signs: Vital Signs - 24 hr 07/03/25 09:59 07/03/25 10:00 07/03/25 10:00 Temperature Pulse Rate 105 H 100 105 H Respiratory Rate Blood Pressure 118/66 118/66 Pulse Oximetry 91 Oxygen Delivery Fraction of Inspired Oxygen 07/03/25 11:42 07/03/25 11:44 07/03/25 12:00 Temperature 36.5 C Pulse Rate 109 H 109 H 121 H Respiratory Rate 12 Blood Pressure 117/83 117/83 Pulse Oximetry 97 Oxygen Delivery Fraction of Inspired Oxygen 07/03/25 13:37 07/03/25 14:00 07/03/25 14:00 Temperature 38.4 C H Pulse Rate 110 H 110 H Respiratory Rate Blood Pressure 120/67 120/67 Pulse Oximetry 91 Oxygen Delivery Fraction of Inspired Oxygen 07/03/25 14:00 07/03/25 14:37 07/03/25 15:03 Temperature 38.8 C H Pulse Rate 107 H 96 Respiratory Rate 20 Blood Pressure Pulse Oximetry Oxygen Delivery Fraction of Inspired Oxygen 07/03/25 15:10 07/03/25 15:58 07/03/25 16:00 Temperature 36.4 C L Pulse Rate 98 106 H 106 H Respiratory Rate 20 12 Blood Pressure 127/68 127/68 Pulse Oximetry 95 Oxygen Delivery Fraction of Inspired Oxygen 07/03/25 16:00 07/03/25 17:58 07/03/25 18:00 Temperature 37.3 C Pulse Rate 123 H 99 Respiratory Rate Blood Pressure Pulse Oximetry Oxygen Delivery Fraction of Inspired Oxygen 07/03/25 18:00 07/03/25 18:05 07/03/25 20:00 Temperature 36.2 C L Pulse Rate 99 99 95 Respiratory Rate 14 18 Blood Pressure 120/64 120/64 112/60 Pulse Oximetry 97 94 Oxygen Delivery Fraction of Inspired Oxygen 07/03/25 20:00 07/03/25 20:00 07/03/25 20:05 Temperature Pulse Rate 96 83 Respiratory Rate Blood Pressure 124/60 Pulse Oximetry Oxygen Delivery Room Air Fraction of Inspired Oxygen 07/03/25 20:05 07/03/25 20:39 07/03/25 20:41 Temperature Pulse Rate 83 91 Respiratory Rate 18 Blood Pressure 124/60 Pulse Oximetry 96 Oxygen Delivery Room Air Fraction of Inspired Oxygen 21 07/03/25 20:45 07/03/25 22:00 07/03/25 22:00 Temperature Pulse Rate 91 91 92 Respiratory Rate 18 Blood Pressure 128/68 Pulse Oximetry Oxygen Delivery Fraction of Inspired Oxygen 07/04/25 00:00 07/04/25 00:00 07/04/25 00:00 Temperature 36.5 C Pulse Rate 94 93 Respiratory Rate 20 Blood Pressure 115/76 115/76 Pulse Oximetry 95 Oxygen Delivery Room Air Fraction of Inspired Oxygen 07/04/25 00:00 07/04/25 02:00 07/04/25 02:00 Temperature Pulse Rate 99 82 88 Respiratory Rate Blood Pressure 120/73 Pulse Oximetry Oxygen Delivery Fraction of Inspired Oxygen 07/04/25 02:07 07/04/25 02:15 07/04/25 03:36 Temperature Pulse Rate 90 97 Respiratory Rate 18 18 Blood Pressure Pulse Oximetry Oxygen Delivery Room Air Fraction of Inspired Oxygen 07/04/25 04:00 07/04/25 04:00 07/04/25 04:00 Temperature 36.8 C Pulse Rate 94 89 88 Respiratory Rate 22 H Blood Pressure 132/72 132/72 Pulse Oximetry 94 Oxygen Delivery Fraction of Inspired Oxygen 07/04/25 05:58 07/04/25 06:00 07/04/25 07:48 Temperature 36.8 C Pulse Rate 92 86 97 Respiratory Rate 20 18 Blood Pressure 121/61 Pulse Oximetry 96 Oxygen Delivery Fraction of Inspired Oxygen 07/04/25 07:49 07/04/25 07:59 07/04/25 08:00 Temperature 36.6 C Pulse Rate 96 113 H Respiratory Rate 16 Blood Pressure 118/63 118/63 Pulse Oximetry 94 96 Oxygen Delivery Room Air Fraction of Inspired Oxygen 21 07/04/25 08:48 Temperature Pulse Rate 113 H Respiratory Rate Blood Pressure Pulse Oximetry Oxygen Delivery Fraction of Inspired Oxygen Intake/Output Intake/Output: Intake & Output 07/01/25 07/02/25 07/03/25 07/04/25 23:59 23:59 23:59 23:59 Intake Total 89243.7 87075.0 32131.9 170 Output Total 07521 77523 17430 1200 Balance -3993.3 -6920.0 -2084.1 -1030 Meds/Results Medications: Active Medications Generic Name Dose Route Start Last Admin Trade Name Freq PRN Reason Stop Dose Admin Acetaminophen 650 mg 06/28/25 01:26 Acetaminophen 650 Mg Suppository RECTAL Q6H PRN Mild Pain (1-3) or Fever Acetaminophen 650 mg 06/29/25 10:38 07/03/25 13:37 Acetaminophen 325 Mg Tablet PO 650 mg Q4H PRN Administration Mild Pain (1-3) or Fever Meropenem 1 gm/ Sodium 100 mls @ 200 mls/hr 06/29/25 08:30 07/04/25 08:52 Chloride IVPB 07/05/25 21:29 200 mls/hr Q12HR EUGENIO Administration Diltiazem HCl 100 mg in 100 mls @ 5 mls/hr 07/01/25 15:30 07/04/25 08:00 Cardizem 100 Mg/100 Ml IV CONT 5 mg/hr .Q20H EUGENIO 5 mls/hr 5 MG/HR Infusion Ipratropium [place] 0.5 mg 06/30/25 14:00 07/04/25 07:47 Ipratropium Br 0.02% Inh Soln 0.5 Mg/2.5 Ml Vial INHALATION 0.5 mg Q6HRT EUGENIO Administration Latanoprost 1 drop 06/28/25 21:00 07/03/25 22:25 Latanoprost 0.005% Op Soln 2.5 Ml Btl EACH EYE 1 drop HS EUGENIO Administration Levalbuterol HCl 0.63 mg 06/30/25 14:00 07/04/25 07:46 Levalbuterol Neb 1.25 Mg/3 Ml INHALATION 0.63 mg Q6HRT EUGENIO Administration Metoprolol Succinate 25 mg 07/03/25 09:00 07/04/25 08:48 Metoprolol Succinate Ext Rel 25 Mg Tabcr PO 25 mg QAM EUGENIO Administration Ondansetron HCl 4 mg 06/28/25 13:33 06/30/25 12:00 Ondansetron Inj 4 Mg/2 Ml Vial IV PUSH 4 mg Q4H PRN Administration Nausea And Vomiting Sodium Chloride 10 ml 06/28/25 14:00 07/04/25 06:02 Central Line Flush IV PUSH 10 ml Q8HR EUGENIO Administration Sodium Chloride 10 ml 06/28/25 13:03 Central Line Flush IV PUSH PRN PRN with TPN bag changes Sodium Chloride 20 ml 06/28/25 13:03 07/02/25 04:29 Central Line Flush IV PUSH 20 ml PRN PRN Administration after blood draws Radiology Results: ITS Impressions Head CT 06/27/25 21:22 IMPRESSION: No acute intracranial hemorrhage or extra axial fluid collections. All CT scans at this facility are performed using low dose modulation techniques as appropriate to perform exam including the following: automated exposure control; use of iterative reconstruction technique; adjustment of the mA and/or kV according to patient size (this includes techniques or standardized protocols for targeted exams where dose is matched to indication/reason for exam). Chest/Abdomen/Pelvis CTA 06/27/25 22:00 IMPRESSION: 1. Hyperdense soft tissue of the bladder lumen, likely blood clot. Limon catheter present in the bladder lumen. 2: No evidence for aortic aneurysm or dissection. 3: Stenosis of the celiac axis, SMA and renal arteries. Carotid Doppler Study 06/28/25 20:17 IMPRESSION: 1. Less than 50% stenosis in the right internal carotid artery by sonographic criteria. 2. Less than 50% stenosis in the left internal carotid artery by sonographic criteria. Chest X-Ray 06/29/25 08:14 Impression: Mild CHF Pelvis Ultrasound 07/03/25 12:59 IMPRESSION: Probable large clot in the urinary bladder which is poorly distended and otherwise not well evaluated. Labs Labs: Laboratory Results - last 24 hr 07/03/25 07/03/25 13:32 13:33 WBC 24.2 H RBC 3.38 L Hgb 10.0 L Hct 31.1 L MCV 92.0 MCH 29.6 MCHC 32.2 RDW 15.9 H Plt Count 143 L D MPV 10.5 H Sodium 133 L Potassium 5.2 H Chloride 102 Carbon Dioxide 23 Anion Gap 8 BUN 32 H Creatinine 1.18 Estim Creat Clear Calc 39 Estimated GFR 59 Glucose 132 H POC Capillary Glucose 144 H Calcium 8.4 Magnesium 2.3 Total Bilirubin 1.1 AST 43 ALT 44 Alkaline Phosphatase 153 H Total Protein 6.1 L Albumin 3.2 L
[2025-07-04 11:11] LABS: Hematocrit 26.1 % (42.0-52.0); Hemoglobin 8.5 g/dL (14.0-18.0); Mean Corpuscular HGB Conc 32.6 g/dl (32-36); Mean Corpuscular Hemoglobin 30.1 pg (26-34); Mean Corpuscular Volume 92.6 fl (80-100); Platelet Count Result 147 k/mm3 (150-375); Red Blood Count 2.82 M/mm3 (4.6-6.20); White Blood Count 26.4 K/mm3 (4.5-10.0)
[2025-07-04 11:29] LABS: Albumin Level 2.6 g/dL (3.5-5.1); Anion Gap 3 mmol/L (4-12); Blood Urea Nitrogen 32 mg/dL (9-20); Calcium 7.8 mg/dL (8.4-10.2); Carbon Dioxide 27 mmol/L (22-30); Chloride 105 mmol/L (98-107); Estimated CRCL calculation 55 ml/min; Estimated Glomerular Filt Rate > 60; Glucose 96 mg/dL (65-110); Magnesium 2.3 mg/dL (1.6-2.3); Potassium 4.0 mmol/L (3.4-5.0); Sodium 135 mmol/L (137-145)
--- NOTE | 2025-07-04 13:01 | PM.PNCARD ---
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 Elevated cardiac troponin T in absence of chest pain OR ischemic ST changes on EKG suggestive of non ST segment elevation myocardial infarction. Patient has significant anemia and elevated creatinine which is contributing to this type 2, non thrombotic myocardial injury. 2. Known history of prostate cancer. Status post the prostate procedure no followed by removal of catheter and patient has hematuria with clots. 3. History of paroxysmal atrial fibrillation. EKG reveals normal sinus rhythm on admission. Patient is on apixaban as well as aspirin at home. 4. Acute blood loss anemia with hemoglobin as low as 8.0. 5. Sepsis with mental status changes. Improved 6. Chronic 3B kidney failure. Creatinine has improved and is at 1.3 today. 7. Hypotension on admission. Blood pressure does remain low and most recent is 95/68 mm of mercury with heart rate of 132 per minute. 8. Paroxysmal atrial fibrillation with rapid ventricular response noted this morning. EKG this morning shows atrial fibrillation with heart rate 172 per minute. Recommendations: 1. REGARDING HIS ATRIAL FIBRILLATION, wean diltiazem off. Hopefully he converts back to sinus now that his acute illness has improved. Increase metoprolol succinate to 50 mg daily as we are discontinuing diltiazem. 2. Hematuria is resolving. Continue to hold systemic anticoagulation for now and resume if/when able. LONG-TERM, CONSIDER LEFT ATRIAL APPENDAGE OCCLUDING DEVICE 3. Continue telemetry monitoring. Subjective Date/time seen: 07/04/25 13:01 Interval history: The patient is 85-year-old male admitted on 06/27/2025 with the complaints of weakness and hematuria with clots. Patient has known history of atrial fibrillation, hypertension and prostate cancer as well as [place] and esophageal reflux disease DATE OF SERVICE 07/02/2025: He has no chest pain, shortness of breath. Heart rate does increase with mild activity. Date of service 07/03/2025: He states that he had a rough night and did not sleep very well. Otherwise feels okay. He denies any palpitations, chest pain, shortness of breath. Date of service 07/04/2025: Feeling much better today. No chest pain, palpitations, shortness of breath. Heart rate is well controlled. Review of Systems Review of Systems: Twelve point review of system was completed. Pertinent positive and negative findings per HPI. Constitutional positive for weakness the and recent fall. Negative for fever or chills. Head and neck is negative Cardiovascular negative for chest pain or shortness of breath or palpitation. Pulmonary system negative for shortness of breath, wheezing or hemoptysis. Gastrointestinal system negative for abdominal pain, nausea vomiting or diarrhea. Genitourinary system positive for recent prostate surgery, removal of Limon catheter and hematuria with clot Neurovascular positive for recent episode of mental status changes and fall on the ground the patient does not remember Musculoskeletal positive for bruises on the knee. All systems reviewed & are unremarkable except as noted in HPI and below Constitutional: Constitutional: Denies difficulty sleeping ENT: Reports Normal hearing present Cardiovascular: Cardiovascular: Denies chest pain and Denies dyspnea Respiratory: Respiratory: Denies dyspnea Genitourinary: Genitourinary: Reports hematuria Neurologic: Reports Normal hearing present Exam Narrative: AWAKE ALERT. APPEARS STATED AGE Const: General: comfortable and no acute distress HENMT: Face/Nose/Sinus: Normal nares present Mouth: Yes moist mucous membranes Eyes: Sclera: sclerae normal Neck: Neck: supple and no JVD Resp: Effort & Inspection: normal respiratory effort Auscultation: clear to auscultation bilaterally Cardio: Rate: regular rate Rhythm: abnormal rhythm irregularly irregular GI: Inspection: non-distended Auscultation: normal bowel sounds Urinary Catheter: Urinary Catheter: patent and draining, urine red and other (CBI) Skin: General skin exam: normal color Neuro: Cranial nerves: Yes Normal hearing present Speech: normal speech Extrem: General: normal to inspection Psych: Affect: normal affect Objective Data Vital Signs Vital Signs: Vital Signs - 24 hr 07/03/25 13:37 07/03/25 14:00 07/03/25 14:00 Temperature 38.4 C H Pulse Rate 110 H 110 H Respiratory Rate Blood Pressure 120/67 120/67 Pulse Oximetry 91 Oxygen Delivery Fraction of Inspired Oxygen 07/03/25 14:00 07/03/25 14:37 07/03/25 15:03 Temperature 38.8 C H Pulse Rate 107 H 96 Respiratory Rate 20 Blood Pressure Pulse Oximetry Oxygen Delivery Fraction of Inspired Oxygen 07/03/25 15:10 07/03/25 15:58 07/03/25 16:00 Temperature 36.4 C L Pulse Rate 98 106 H 106 H Respiratory Rate 20 12 Blood Pressure 127/68 127/68 Pulse Oximetry 95 Oxygen Delivery Fraction of Inspired Oxygen 07/03/25 16:00 07/03/25 17:58 07/03/25 18:00 Temperature 37.3 C Pulse Rate 123 H 99 Respiratory Rate Blood Pressure Pulse Oximetry Oxygen Delivery Fraction of Inspired Oxygen 07/03/25 18:00 07/03/25 18:05 07/03/25 20:00 Temperature 36.2 C L Pulse Rate 99 99 95 Respiratory Rate 14 18 Blood Pressure 120/64 120/64 112/60 Pulse Oximetry 97 94 Oxygen Delivery Fraction of Inspired Oxygen 07/03/25 20:00 07/03/25 20:00 07/03/25 20:05 Temperature Pulse Rate 96 83 Respiratory Rate Blood Pressure 124/60 Pulse Oximetry Oxygen Delivery Room Air Fraction of Inspired Oxygen 07/03/25 20:05 07/03/25 20:39 07/03/25 20:41 Temperature Pulse Rate 83 91 Respiratory Rate 18 Blood Pressure 124/60 Pulse Oximetry 96 Oxygen Delivery Room Air Fraction of Inspired Oxygen 21 07/03/25 20:45 07/03/25 22:00 07/03/25 22:00 Temperature Pulse Rate 91 91 92 Respiratory Rate 18 Blood Pressure 128/68 Pulse Oximetry Oxygen Delivery Fraction of Inspired Oxygen 07/04/25 00:00 07/04/25 00:00 07/04/25 00:00 Temperature 36.5 C Pulse Rate 94 93 Respiratory Rate 20 Blood Pressure 115/76 115/76 Pulse Oximetry 95 Oxygen Delivery Room Air Fraction of Inspired Oxygen 07/04/25 00:00 07/04/25 02:00 07/04/25 02:00 Temperature Pulse Rate 99 82 88 Respiratory Rate Blood Pressure 120/73 Pulse Oximetry Oxygen Delivery Fraction of Inspired Oxygen 07/04/25 02:07 07/04/25 02:15 07/04/25 03:36 Temperature Pulse Rate 90 97 Respiratory Rate 18 18 Blood Pressure Pulse Oximetry Oxygen Delivery Room Air Fraction of Inspired Oxygen 07/04/25 04:00 07/04/25 04:00 07/04/25 04:00 Temperature 36.8 C Pulse Rate 94 89 88 Respiratory Rate 22 H Blood Pressure 132/72 132/72 Pulse Oximetry 94 Oxygen Delivery Fraction of Inspired Oxygen 07/04/25 05:58 07/04/25 06:00 07/04/25 07:48 Temperature 36.8 C Pulse Rate 92 86 97 Respiratory Rate 20 18 Blood Pressure 121/61 Pulse Oximetry 96 Oxygen Delivery Fraction of Inspired Oxygen 07/04/25 07:49 07/04/25 07:59 07/04/25 08:00 Temperature 36.6 C Pulse Rate 96 113 H Respiratory Rate 16 Blood Pressure 118/63 118/63 Pulse Oximetry 94 96 Oxygen Delivery Room Air Fraction of Inspired Oxygen 21 07/04/25 08:00 07/04/25 08:00 07/04/25 08:48 Temperature Pulse Rate 102 H 113 H Respiratory Rate Blood Pressure Pulse Oximetry Oxygen Delivery Room Air Fraction of Inspired Oxygen 07/04/25 10:00 07/04/25 10:00 07/04/25 10:00 Temperature Pulse Rate 98 97 97 Respiratory Rate 14 Blood Pressure 117/64 117/64 Pulse Oximetry 98 Oxygen Delivery Fraction of Inspired Oxygen 07/04/25 11:59 07/04/25 12:00 Temperature 36.6 C Pulse Rate 118 H Respiratory Rate 22 H Blood Pressure 120/74 Pulse Oximetry 97 Oxygen Delivery Room Air Fraction of Inspired Oxygen Intake/Output Intake/Output: Intake & Output 07/01/25 07/02/25 07/03/25 07/04/25 23:59 23:59 23:59 23:59 Intake Total 62616.7 68067.0 03916.9 520 Output Total 93408 61182 60891 1200 Balance -3993.3 -6920.0 -2084.1 -680 Meds/Results Medications: Active Medications Generic Name Dose Route Start Last Admin Trade Name Freq PRN Reason Stop Dose Admin Acetaminophen 650 mg 06/28/25 01:26 Acetaminophen 650 Mg Suppository RECTAL Q6H PRN Mild Pain (1-3) or Fever Acetaminophen 650 mg 06/29/25 10:38 07/03/25 13:37 Acetaminophen 325 Mg Tablet PO 650 mg Q4H PRN Administration Mild Pain (1-3) or Fever Diltiazem HCl 100 mg in 100 mls @ 5 mls/hr 07/01/25 15:30 07/04/25 10:00 Cardizem 100 Mg/100 Ml IV CONT 5 mg/hr .Q20H EUGENIO 5 mls/hr 5 MG/HR Infusion Ceftriaxone Sodium 2 gm/ 100 mls @ 200 mls/hr 07/04/25 13:00 Sodium Chloride IVPB DAILY EUGENIO Vancomycin HCl 2,000 mg in 500 mls @ 250 mls/hr 07/04/25 14:00 Vancomycin 2,000 Mg/Ns 500 Ml IVPB 07/04/25 15:59 ONCE ONE Vancomycin HCl 1,250 mg in 250 mls @ 166.667 mls/hr 07/05/25 14:00 Vancomycin 1,250 Mg/Ns 250 Ml IVPB Q24H EUGENIO Ipratropium [place] 0.5 mg 06/30/25 14:00 07/04/25 07:47 Ipratropium Br 0.02% Inh Soln 0.5 Mg/2.5 Ml Vial INHALATION 0.5 mg Q6HRT EUGENIO Administration Latanoprost 1 drop 06/28/25 21:00 07/03/25 22:25 Latanoprost 0.005% Op Soln 2.5 Ml Btl EACH EYE 1 drop HS EUGENIO Administration Levalbuterol HCl 0.63 mg 06/30/25 14:00 07/04/25 07:46 Levalbuterol Neb 1.25 Mg/3 Ml INHALATION 0.63 mg Q6HRT EUGENIO Administration Metoprolol Succinate 25 mg 07/03/25 09:00 07/04/25 08:48 Metoprolol Succinate Ext Rel 25 Mg Tabcr PO 25 mg QAM EUGENIO Administration Ondansetron HCl 4 mg 06/28/25 13:33 06/30/25 12:00 Ondansetron Inj 4 Mg/2 Ml Vial IV PUSH 4 mg Q4H PRN Administration Nausea And Vomiting Sodium Chloride 10 ml 06/28/25 14:00 07/04/25 06:02 Central Line Flush IV PUSH 10 ml Q8HR EUGENIO Administration Sodium Chloride 10 ml 06/28/25 13:03 Central Line Flush IV PUSH PRN PRN with TPN bag changes Sodium Chloride 20 ml 06/28/25 13:03 07/02/25 04:29 Central Line Flush IV PUSH 20 ml PRN PRN Administration after blood draws Radiology Results: ITS Impressions Head CT 06/27/25 21:22 IMPRESSION: No acute intracranial hemorrhage or extra axial fluid collections. All CT scans at this facility are performed using low dose modulation techniques as appropriate to perform exam including the following: automated exposure control; use of iterative reconstruction technique; adjustment of the mA and/or kV according to patient size (this includes techniques or standardized protocols for targeted exams where dose is matched to indication/reason for exam). Chest/Abdomen/Pelvis CTA 06/27/25 22:00 IMPRESSION: 1. Hyperdense soft tissue of the bladder lumen, likely blood clot. Limon catheter present in the bladder lumen. 2: No evidence for aortic aneurysm or dissection. 3: Stenosis of the celiac axis, SMA and renal arteries. Carotid Doppler Study 06/28/25 20:17 IMPRESSION: 1. Less than 50% stenosis in the right internal carotid artery by sonographic criteria. 2. Less than 50% stenosis in the left internal carotid artery by sonographic criteria. Chest X-Ray 06/29/25 08:14 Impression: Mild CHF Pelvis Ultrasound 07/03/25 12:59 IMPRESSION: Probable large clot in the urinary bladder which is poorly distended and otherwise not well evaluated. Labs Labs: Laboratory Results - last 24 hr 07/03/25 07/03/25 07/04/25 13:32 13:33 11:01 WBC 24.2 H RBC 3.38 L Hgb 10.0 L Hct 31.1 L MCV 92.0 MCH 29.6 MCHC 32.2 RDW 15.9 H Plt Count 143 L D MPV 10.5 H Sodium 133 L 135 L Potassium 5.2 H 4.0 Chloride 102 105 Carbon Dioxide 23 27 Anion Gap 8 3 L BUN 32 H 32 H Creatinine 1.18 0.82 Estim Creat Clear Calc 39 55 Estimated GFR 59 > 60 Glucose 132 H 96 POC Capillary Glucose 144 H Calcium 8.4 7.8 L Phosphorus 2.7 Magnesium 2.3 2.3 Total Bilirubin 1.1 AST 43 ALT 44 Alkaline Phosphatase 153 H Total Protein 6.1 L Albumin 3.2 L 2.6 L 07/04/25 11:02 WBC 26.4 H RBC 2.82 L Hgb 8.5 L Hct 26.1 L MCV 92.6 MCH 30.1 MCHC 32.6 RDW 16.0 H Plt Count 147 L MPV 10.5 H Sodium Potassium Chloride Carbon Dioxide Anion Gap BUN Creatinine Estim Creat Clear Calc Estimated GFR Glucose POC Capillary Glucose Calcium Phosphorus Magnesium Total Bilirubin AST ALT Alkaline Phosphatase Total Protein Albumin Quality VTE Prophylaxis VTE prophylaxis: mechanical ordered
[2025-07-04] MEDS: cefTRIAXone 2 GM in SODIUM CHLORIDE 0.9% IV 100 ML 200 ML IVPB (13:11)
[2025-07-04] MEDS: VANCOMYCIN 2,000 MG/NS 500 ML 2,000 MG/500 ML BAG 250 MG IVPB (14:10)
--- NOTE | 2025-07-04 17:45 | P.PNIM_ITS ---
Progress Note: A&P Assessment and Plan (1) Sepsis: Code(s): A41.9 - Sepsis, unspecified organism Status: Acute Assessment and Plan: -his white count was noted to be 20.6 -his heart rate is fast but his blood pressure is normal. -he has chills but no fever. -blood cultures are pending. -patient was empirically placed on Rocephin, doxycycline, and vancomycin. -daily CBC -the patient is lethargic and will only open his eyes when his name is called out. -source unknown at this time. -may consider Infectious Disease consult. -check lactic daily. Lactic is 3.3 -continue with IV fluids -no open areas noted at this time. No skin tears, no abrasions, and no open areas. (2) Paroxysmal A-fib: Code(s): I48.0 - Paroxysmal atrial fibrillation Status: Acute Assessment and Plan: -the patient is in sinus tachycardia with occasional supraventricular premature complexes. -the patient had been on Eliquis in the past but recently had hematuria and was taken off of the blood thinner. -patient was given a dose of Cardizem in the emergency room. -continue with metoprolol -continue with IV fluids as the patient currently has tachycardia with premature supraventricular beats (3) Hypertension: Code(s): I10 - Essential (primary) hypertension Status: Acute Assessment and Plan: -patient's blood pressure is currently 133/57. -resume home medications when the patient is awake enough to take oral medication and if blood pressure allows. (4) Sleep apnea: Qualifiers: Sleep apnea type: obstructive Qualified Code(s): G47.33 - Obstructive sleep apnea (adult) (pediatric) Code(s): G47.30 - Sleep apnea, unspecified Status: Acute Assessment and Plan: Continue with auto titrate for CPAP/BiPAP (5) Hyponatremia: Code(s): E87.1 - Hypo-osmolality and hyponatremia Status: Acute Assessment and Plan: -most likely related to dehydration. -continue with IV fluids. Monitor closely as to not cause fluid overload (last echo 07/21/2024 shows a normal left ventricular size with a preserved systolic contractility.) -check urine osmolality and urine sodium. 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 -Chest/Abdomen/Pelvis CTA 06/27/25 22:00 IMPRESSION: 1. Hyperdense soft tissue of the bladder lumen, likely blood clot. Limon catheter present in the bladder lumen. 2: No evidence for aortic aneurysm or dissection. 3: Stenosis of the celiac axis, SMA and renal arteries. May consider vascular consult outpatient (7) Encephalopathy: Code(s): G93.40 - Encephalopathy, unspecified Status: Acute Assessment and Plan: -could be due to infectious process. -could be related to the dehydration. -Head CT 06/27/25 21:22 IMPRESSION: No acute intracranial hemorrhage or extra axial fluid collections. -continue with neuro checks every 4 hours. -neurology consult. -a stroke workup which include an echo with bubble, an ultrasound of the caroti ds, as well as an MRI of the brain (8) Hypoxia: Code(s): R09.02 - Hypoxemia Status: Acute Assessment and Plan: -titrate oxygen to keep O2 saturations above 92%. -trend troponin -check an echo, last echo on 07/21/2024 was read as a following Summary 1. Definity contrast injected to improve visualization. 2. Normal left ventricular size with preserved systolic contractility. 3. Markedly dilated left atrium. 4. Mild MR. 5. Atrial fibrillation. (9) Hematuria: Code(s): R31.9 - Hematuria, unspecified Status: Acute Assessment and Plan: -consult urology -every 6 hour H&H -the patient has a history of prostate cancer. Is reported that the patient had a procedure within the last 2 weeks. -Limon catheter was placed in the emergency room. -H&H is currently 9.9 and 30.6. Plan patient with septic shock most likely 2/2 UTI, patient blood pressure is trending up and patient is off low pressures, patient with Atrial flutter seen by thermostat machine tender and patient is on diltiazem drip and rate is trending down, and started on metoprolol in home to wean patient off diltiazem drip, patient blood culture is growing multiple organisms E coli, and Proteus mirabilis, patient is being treated with meropenem, patient with hematuria suspect most likely due to UTI with history of radiation therapy, cystitis , patient is on CBI and hematuria is improving, patient is seen by set up mold technician and urologist. patient hematuria is improving and there are no blood clots, patient has elevated tropes, seen by the thermostat machine tender suspect most likely type II infarct due to anemia and elevated Scr, patient clinical symptoms are improving. his family is present gave updates. Subjective Date/time seen: 07/04/25 17:45 Interval history: Weakness and hematuria H&P-Narrative: This is an 85-year-old male patient who resides with his . He has a history of paroxysmal AFib, GERD, hypertension and prostate cancer. The patient previously had gone through some urology procedures over the last 2 weeks. The patient was sent home with Limon catheter which was subsequently removed today. Patient was sent home without a Limon catheter. When the patient got home today he went to the bathroom and then does not recall getting back on the couch. Is reported that the saw him get down on his knees and slumped over on the ground and fell asleep. When EMS came with to their home it was noted that the patient was down for few hours. He denies any chest pain or shortness of breath any abdominal pain, nausea, vomiting, or headache. Head CT was read as no acute intracranial hemorrhage or extra-axial fluid collections. Chest/abdomen/pelvis CTA was read as a followingIMPRESSION: 1. Hyperdense soft tissue of the bladder lumen, likely blood clot. Limon catheter present in the bladder lumen. 2: No evidence for aortic aneurysm or dissection. 3: Stenosis of the celiac axis, SMA and renal arteries. The patient is very lethargic and not answering questions. Lab 20.6 with H&H 9.9 and 30.6 on his hematology. ABGs pH 7.480 with low bicarb and PO2 was low at 73.4. Oxygen was applied at 2 L per nasal cannula. His heart rate has been in the 1 teens with blood pressure 145/77. His lowest O2 saturation was 85 point has come up to 97%. Sodium was low at 129. His glucose is 116. Lactic is 3.3. Calcium is low at 8.3. Urine is turbid with 3+ protein, 2+ ketones, 3+ blood, 1+ urine bilirubin, 51-100 rbc's. Patient was given diltiazem IV push x1 Benadryl, prednisone, morphine, Rocephin, and IV fluids. The Limon catheter was placed in the emergency room patient with septic shock most likely 2/2 UTI, patient blood pressure is trending up and patient is off low pressures, patient with Atrial flutter seen by thermostat machine tender and patient is on diltiazem drip and rate is trending down, and started on metoprolol in home to wean patient off diltiazem drip, patient blood culture is growing multiple organisms E coli, and Proteus mirabilis, patient is being treated with meropenem, patient with hematuria suspect most likely due to UTI with history of radiation therapy, cystitis , patient is on CB I and hematuria is improving, patient is seen by set up mold technician and urologist. patient hematuria is improving and there are no blood clots, patient has elevated tropes, seen by the thermostat machine tender suspect most likely type II infarct due to anemia and elevated Scr, patient clinical symptoms are improving. his family is present gave updates. Review of Systems Review of Systems: All systems reviewed & are unremarkable except as noted in HPI and below Exam Narrative: Patient is comfortable, NAD HEENT: eyes are clear and none icteric LUNGS:CTA HEART: RR S1S2 ABD: BS+, Soft and nontender Lower extremities: no edema SKIN: nonjaundiced Neuro: grossly intact. Objective Data Vital Signs Vital Signs: Vital Signs - 24 hr 07/03/25 17:58 07/03/25 18:00 07/03/25 18:00 Temperature 37.3 C Pulse Rate 99 99 Respiratory Rate 14 Blood Pressure 120/64 Pulse Oximetry 97 Oxygen Delivery Fraction of Inspired Oxygen 07/03/25 18:05 07/03/25 20:00 07/03/25 20:00 Temperature 36.2 C L Pulse Rate 99 95 Respiratory Rate 18 Blood Pressure 120/64 112/60 Pulse Oximetry 94 Oxygen Delivery Room Air Fraction of Inspired Oxygen 07/03/25 20:00 07/03/25 20:05 07/03/25 20:05 Temperature Pulse Rate 96 83 83 Respiratory Rate Blood Pressure 124/60 124/60 Pulse Oximetry Oxygen Delivery Fraction of Inspired Oxygen 07/03/25 20:39 07/03/25 20:41 07/03/25 20:45 Temperature Pulse Rate 91 91 Respiratory Rate 18 18 Blood Pressure Pulse Oximetry 96 Oxygen Delivery Room Air Fraction of Inspired Oxygen 21 07/03/25 22:00 07/03/25 22:00 07/04/25 00:00 Temperature Pulse Rate 91 92 Respiratory Rate Blood Pressure 128/68 Pulse Oximetry Oxygen Delivery Room Air Fraction of Inspired Oxygen 07/04/25 00:00 07/04/25 00:00 07/04/25 00:00 Temperature 36.5 C Pulse Rate 94 93 99 Respiratory Rate 20 Blood Pressure 115/76 115/76 Pulse Oximetry 95 Oxygen Delivery Fraction of Inspired Oxygen 07/04/25 02:00 07/04/25 02:00 07/04/25 02:07 Temperature Pulse Rate 82 88 90 Respiratory Rate 18 Blood Pressure 120/73 Pulse Oximetry Oxygen Delivery Fraction of Inspired Oxygen 07/04/25 02:15 07/04/25 03:36 07/04/25 04:00 Temperature 36.8 C Pulse Rate 97 94 Respiratory Rate 18 22 H Blood Pressure 132/72 Pulse Oximetry 94 Oxygen Delivery Room Air Fraction of Inspired Oxygen 07/04/25 04:00 07/04/25 04:00 07/04/25 05:58 Temperature 36.8 C Pulse Rate 89 88 92 Respiratory Rate 20 Blood Pressure 132/72 121/61 Pulse Oximetry 96 Oxygen Delivery Fraction of Inspired Oxygen 07/04/25 06:00 07/04/25 07:48 07/04/25 07:49 Temperature Pulse Rate 86 97 Respiratory Rate 18 Blood Pressure Pulse Oximetry 94 Oxygen Delivery Room Air Fraction of Inspired Oxygen 07/04/25 07:59 07/04/25 08:00 07/04/25 08:00 Temperature 36.6 C Pulse Rate 96 113 H Respiratory Rate 16 Blood Pressure 118/63 118/63 Pulse Oximetry 96 Oxygen Delivery Room Air Fraction of Inspired Oxygen 07/04/25 08:00 07/04/25 08:00 07/04/25 08:48 Temperature Pulse Rate 102 H 100 113 H Respiratory Rate 18 Blood Pressure Pulse Oximetry Oxygen Delivery Fraction of Inspired Oxygen 07/04/25 10:00 07/04/25 10:00 07/04/25 10:00 Temperature Pulse Rate 98 97 97 Respiratory Rate 14 Blood Pressure 117/64 117/64 Pulse Oximetry 98 Oxygen Delivery Fraction of Inspired Oxygen 07/04/25 11:59 07/04/25 12:00 07/04/25 12:00 Temperature 36.6 C Pulse Rate 118 H 130 H Respiratory Rate 22 H Blood Pressure 120/74 Pulse Oximetry 97 Oxygen Delivery Room Air Fraction of Inspired Oxygen 07/04/25 13:53 07/04/25 14:00 07/04/25 14:00 Temperature Pulse Rate 92 113 H 103 H Respiratory Rate 18 Blood Pressure 103/72 Pulse Oximetry Oxygen Delivery Fraction of Inspired Oxygen 07/04/25 14:00 07/04/25 14:06 07/04/25 16:00 Temperature 36.7 C Pulse Rate 116 H 105 H 103 H Respiratory Rate 19 20 Blood Pressure 103/72 124/72 Pulse Oximetry 97 Oxygen Delivery Fraction of Inspired Oxygen Intake/Output Intake/Output: Intake & Output 07/01/25 07/02/25 07/03/25 07/04/25 23:59 23:59 23:59 23:59 Intake Total 46874.7 51673.0 13886.9 638.4 Output Total 03547 87434 85677 1200 Balance -3993.3 -6920.0 -2084.1 -561.6 Meds/Results Medications: Active Medications Generic Name Dose Route Start Last Admin Trade Name Freq PRN Reason Stop Dose Admin Acetaminophen 650 mg 06/28/25 01:26 Acetaminophen 650 Mg Suppository RECTAL Q6H PRN Mild Pain (1-3) or Fever Acetaminophen 650 mg 06/29/25 10:38 07/03/25 13:37 Acetaminophen 325 Mg Tablet PO 650 mg Q4H PRN Administration Mild Pain (1-3) or Fever Ceftriaxone Sodium 2 gm/ 100 mls @ 200 mls/hr 07/04/25 13:00 07/04/25 14:23 Sodium Chloride IVPB Infused DAILY EUGENIO Infusion Vancomycin HCl 1,250 mg in 250 mls @ 166.667 mls/hr 07/05/25 14:00 Vancomycin 1,250 Mg/Ns 250 Ml IVPB Q24H EUGENIO Ipratropium [place] 0.5 mg 06/30/25 14:00 07/04/25 13:51 Ipratropium Br 0.02% Inh Soln 0.5 Mg/2.5 Ml Vial INHALATION 0.5 mg Q6HRT EUGENIO Administration Latanoprost 1 drop 06/28/25 21:00 07/03/25 22:25 Latanoprost 0.005% Op Soln 2.5 Ml Btl EACH EYE 1 drop HS EUGENIO Administration Levalbuterol HCl 0.63 mg 06/30/25 14:00 07/04/25 13:51 Levalbuterol Neb 1.25 Mg/3 Ml INHALATION 0.63 mg Q6HRT EUGENIO Administration Metoprolol Succinate 50 mg 07/05/25 09:00 Metoprolol Succinate Ext Rel 50 Mg Tabcr PO QAM EUGENIO Ondansetron HCl 4 mg 06/28/25 13:33 06/30/25 12:00 Ondansetron Inj 4 Mg/2 Ml Vial IV PUSH 4 mg Q4H PRN Administration Nausea And Vomiting Sodium Chloride 10 ml 06/28/25 14:00 07/04/25 13:12 Central Line Flush IV PUSH 10 ml Q8HR EUGENIO Administration Sodium Chloride 10 ml 06/28/25 13:03 Central Line Flush IV PUSH PRN PRN with TPN bag changes Sodium Chloride 20 ml 06/28/25 13:03 07/02/25 04:29 Central Line Flush IV PUSH 20 ml PRN PRN Administration after blood draws Radiology Results: ITS Impressions Head CT 06/27/25 21:22 IMPRESSION: No acute intracranial hemorrhage or extra axial fluid collections. All CT scans at this facility are performed using low dose modulation techniques as appropriate to perform exam including the following: automated exposure control; use of iterative reconstruction technique; adjustment of the mA and/or kV according to patient size (this includes techniques or standardized protocols for targeted exams where dose is matched to indication/reason for exam). Chest/Abdomen/Pelvis CTA 06/27/25 22:00 IMPRESSION: 1. Hyperdense soft tissue of the bladder lumen, likely blood clot. Limon catheter present in the bladder lumen. 2: No evidence for aortic aneurysm or dissection. 3: Stenosis of the celiac axis, SMA and renal arteries. Carotid Doppler Study 06/28/25 20:17 IMPRESSION: 1. Less than 50% stenosis in the right internal carotid artery by sonographic criteria. 2. Less than 50% stenosis in the left internal carotid artery by sonographic criteria. Chest X-Ray 06/29/25 08:14 Impression: Mild CHF Pelvis Ultrasound 07/03/25 12:59 IMPRESSION: Probable large clot in the urinary bladder which is poorly distended and o therwise not well evaluated. Labs Labs: Laboratory Results - last 24 hr 07/04/25 07/04/25 11:01 11:02 WBC 26.4 H RBC 2.82 L Hgb 8.5 L Hct 26.1 L MCV 92.6 MCH 30.1 MCHC 32.6 RDW 16.0 H Plt Count 147 L MPV 10.5 H Sodium 135 L Potassium 4.0 Chloride 105 Carbon Dioxide 27 Anion Gap 3 L BUN 32 H Creatinine 0.82 Estim Creat Clear Calc 55 Estimated GFR > 60 Glucose 96 Calcium 7.8 L Phosphorus 2.7 Magnesium 2.3 Albumin 2.6 L
[2025-07-04] MEDS: LATANOPROST 0.005% OP SOLN 2.5 ML BTL 1 DROP EACH EYE (20:37)
[2025-07-04 22:07] LABS: Osmolality, Serum 279 mOsmol/kg (280-301)
[2025-07-04] MEDS: dilTIAZem 100 MG/100 ML 100 MG/100 ML BAG IV CONT (22:46)
[2025-07-05] VITALS (33 sets, daily range): BP systolic 114–144; BP diastolic 64–75; PULSE 83–135; RESP 14–23; TEMP 36.2–37; O2SAT 93–98
[2025-07-05] MEDS: IPRATROPIUM BR 0.02% INH SOLN 0.5 MG/2.5 ML VIAL INHALATION ×4 (02:15→20:14)
[2025-07-05 04:15] LABS: Hematocrit 25.0 % (42.0-52.0); Hemoglobin 8.0 g/dL (14.0-18.0); Mean Corpuscular HGB Conc 32.0 g/dl (32-36); Mean Corpuscular Hemoglobin 29.5 pg (26-34); Mean Corpuscular Volume 92.3 fl (80-100); Platelet Count Result 165 k/mm3 (150-375); Red Blood Count 2.71 M/mm3 (4.6-6.20); White Blood Count 25.5 K/mm3 (4.5-10.0)
[2025-07-05 04:27] LABS: Albumin Level 2.5 g/dL (3.5-5.1); Anion Gap 3 mmol/L (4-12); Blood Urea Nitrogen 30 mg/dL (9-20); Calcium 7.4 mg/dL (8.4-10.2); Carbon Dioxide 25 mmol/L (22-30); Chloride 106 mmol/L (98-107); Estimated CRCL calculation 47 ml/min; Estimated Glomerular Filt Rate > 60; Glucose 103 mg/dL (65-110); Magnesium 2.2 mg/dL (1.6-2.3); Potassium 4.2 mmol/L (3.4-5.0); Sodium 134 mmol/L (137-145)
[2025-07-05] MEDS: CENTRAL LINE FLUSH 10 ML IV PUSH ×3 (04:46→20:10)
[2025-07-05] MEDS: cefTRIAXone 2 GM in SODIUM CHLORIDE 0.9% IV 100 ML 200 ML IVPB (08:38)
[2025-07-05] MEDS: METOPROLOL SUCCINATE EXT REL 50 MG TABCR PO (08:39)
--- NOTE | 2025-07-05 09:12 | WPDUROPN2 ---
Progress Note: A&P Assessment and Plan (1) Gross hematuria: Code(s): R31.0 - Gross hematuria Status: Acute Assessment and Plan: - CBI is running at a moderate rate with red urine in the bag. There is light red urine in the tubing. Continue CBI and titrate down as the urine clears. (2) UTI (urinary tract infection): Qualifiers: Hematuria presence: with hematuria Urinary tract infection type: acute cystitis Qualified Code(s): N30.01 - Acute cystitis with hematuria Code(s): N39.0 - Urinary tract infection, site not specified Status: Acute Assessment and Plan: - Continue culture driven Abx - WBC is 25.5 today which is slightly lower than yesterday. (3) Urinary retention: Code(s): R33.9 - Retention of urine, unspecified Status: Inactive Assessment and Plan: - Maintain Limon catheter until gross hematuria is cleared - Can consider void trial at that time - Creatinine is stable at 0.97. Subjective Subjective Date/Time Seen: 07/05/25 09:12 Interval history: Patient reports he does not feel good today. He can not put his finger on it but he has just not feeling very well. Patient has red urine in his Limon bag with the CBI running at a slow moderate rate. Review of Systems Review of Systems: per HPI All systems reviewed & are unremarkable except as noted in HPI and below Exam Narrative: patient is pale and sleepy Const: General: no acute distress Eyes: General: appearance normal, both eyes and all related structures Resp: Effort & Inspection: normal respiratory effort GI: Inspection: non-distended Auscultation: normal bowel sounds Urinary Catheter: Urinary Catheter: patent and draining and urine red ( CBI running on low moderate) Skin: Other: Pale Neuro: Speech: normal speech Psych: Other: sleepy Objective Data Vital Signs Vital Signs: Vital Signs - 24 hr 07/04/25 10:00 07/04/25 10:00 07/04/25 10:00 Temperature Pulse Rate 98 97 97 Respiratory Rate 14 Blood Pressure 117/64 117/64 Pulse Oximetry 98 Oxygen Delivery 07/04/25 11:59 07/04/25 12:00 07/04/25 12:00 Temperature 97.9 F Pulse Rate 118 H 130 H Respiratory Rate 22 H Blood Pressure 120/74 Pulse Oximetry 97 Oxygen Delivery Room Air 07/04/25 13:53 07/04/25 14:00 07/04/25 14:00 Temperature Pulse Rate 92 113 H 103 H Respiratory Rate 18 Blood Pressure 103/72 Pulse Oximetry Oxygen Delivery 07/04/25 14:00 07/04/25 14:06 07/04/25 16:00 Temperature 98.1 F Pulse Rate 116 H 105 H 103 H Respiratory Rate 19 20 Blood Pressure 103/72 124/72 Pulse Oximetry 97 Oxygen Delivery 07/04/25 16:00 07/04/25 16:00 07/04/25 17:59 Temperature Pulse Rate 110 H 117 H Respiratory Rate Blood Pressure Pulse Oximetry Oxygen Delivery Room Air 07/04/25 20:00 07/04/25 20:00 07/04/25 20:15 Temperature 99.0 F Pulse Rate 135 H 121 H Respiratory Rate 18 Blood Pressure 137/73 Pulse Oximetry 95 94 Oxygen Delivery Room Air 07/04/25 20:15 07/04/25 20:26 07/04/25 22:00 Temperature Pulse Rate 135 H 129 H 130 H Respiratory Rate 14 14 Blood Pressure Pulse Oximetry Oxygen Delivery 07/04/25 22:44 07/04/25 22:46 07/05/25 00:00 Temperature 98.1 F 98.6 F Pulse Rate 142 H 142 H 126 H Respiratory Rate 18 18 Blood Pressure 137/88 137/88 144/73 H Pulse Oximetry 95 95 Oxygen Delivery 07/05/25 00:00 07/05/25 00:39 07/05/25 02:00 Temperature Pulse Rate 134 H 126 H 121 H Respiratory Rate Blood Pressure 144/73 H Pulse Oximetry Oxygen Delivery 07/05/25 02:00 07/05/25 02:10 07/05/25 02:16 Temperature Pulse Rate 118 H 118 H 109 H Respiratory Rate 14 Blood Pressure 135/64 135/64 Pulse Oximetry Oxygen Delivery 07/05/25 02:26 07/05/25 03:58 07/05/25 04:00 Temperature 97.8 F Pulse Rate 135 H 130 H 120 H Respiratory Rate 14 18 Blood Pressure 125/66 Pulse Oximetry 93 Oxygen Delivery 07/05/25 04:00 07/05/25 06:00 07/05/25 06:00 Temperature Pulse Rate 120 H 128 H 120 H Respiratory Rate Blood Pressure 125/66 140/73 Pulse Oximetry Oxygen Delivery 07/05/25 06:02 07/05/25 07:59 07/05/25 08:00 Temperature 98.5 F Pulse Rate 113 H 124 H 123 H Respiratory Rate 23 H Blood Pressure 140/73 135/68 135/68 Pulse Oximetry 98 Oxygen Delivery 07/05/25 08:39 Temperature Pulse Rate 123 H Respiratory Rate Blood Pressure Pulse Oximetry Oxygen Delivery Intake/Output Intake/Output: Intake & Output 07/02/25 07/03/25 07/04/25 07/05/25 23:59 23:59 23:59 23:59 Intake Total 54643.0 36577.9 1110.4 816.2 Output Total 23973 35002 1800 1250 Balance -6920.0 -2084.1 -689.6 -433.8 Meds/Results Medications: Active Medications Generic Name Dose Route Start Last Admin Trade Name Freq PRN Reason Stop Dose Admin Acetaminophen 650 mg 06/28/25 01:26 Acetaminophen 650 Mg Suppository RECTAL Q6H PRN Mild Pain (1-3) or Fever Acetaminophen 650 mg 06/29/25 10:38 07/03/25 13:37 Acetaminophen 325 Mg Tablet PO 650 mg Q4H PRN Administration Mild Pain (1-3) or Fever Ceftriaxone Sodium 2 gm/ 100 mls @ 200 mls/hr 07/04/25 13:00 07/05/25 08:38 Sodium Chloride IVPB 200 mls/hr DAILY EUGENIO Administration Vancomycin HCl 1,250 mg in 250 mls @ 166.667 mls/hr 07/05/25 14:00 Vancomycin 1,250 Mg/Ns 250 Ml IVPB Q24H EUGENIO Diltiazem HCl 100 mg in 100 mls @ 5 mls/hr 07/04/25 22:10 07/05/25 08:00 Cardizem 100 Mg/100 Ml IV CONT 5 mg/hr .Q20H EUGENIO 5 mls/hr 5 MG/HR Infusion Ipratropium [place] 0.5 mg 06/30/25 14:00 07/05/25 08:25 Ipratropium Br 0.02% Inh Soln 0.5 Mg/2.5 Ml Vial INHALATION 0.5 mg Q6HRT EUGENIO Administration Latanoprost 1 drop 06/28/25 21:00 07/04/25 20:37 Latanoprost 0.005% Op Soln 2.5 Ml Btl EACH EYE 1 drop HS EUGENIO Administration Levalbuterol HCl 0.63 mg 06/30/25 14:00 07/05/25 08:25 Levalbuterol Neb 1.25 Mg/3 Ml INHALATION 0.63 mg Q6HRT EUGENIO Administration Metoprolol Succinate 50 mg 07/05/25 09:00 07/05/25 08:39 Metoprolol Succinate Ext Rel 50 Mg Tabcr PO 50 mg QAM EUGENIO Administration Ondansetron HCl 4 mg 06/28/25 13:33 06/30/25 12:00 Ondansetron Inj 4 Mg/2 Ml Vial IV PUSH 4 mg Q4H PRN Administration Nausea And Vomiting Sodium Chloride 10 ml 06/28/25 14:00 07/05/25 04:46 Central Line Flush IV PUSH 10 ml Q8HR EUGENIO Administration Sodium Chloride 10 ml 06/28/25 13:03 Central Line Flush IV PUSH PRN PRN with TPN bag changes Sodium Chloride 20 ml 06/28/25 13:03 07/02/25 04:29 Central Line Flush IV PUSH 20 ml PRN PRN Administration after blood draws Radiology Results: ITS Impressions Head CT 06/27/25 21:22 IMPRESSION: No acute intracranial hemorrhage or extra axial fluid collections. All CT scans at this facility are performed using low dose modulation techniques as appropriate to perform exam including the following: automated exposure control; use of iterative reconstruction technique; adjustment of the mA and/or kV according to patient size (this includes techniques or standardized protocols for targeted exams where dose is matched to indication/reason for exam). Chest/Abdomen/Pelvis CTA 06/27/25 22:00 IMPRESSION: 1. Hyperdense soft tissue of the bladder lumen, likely blood clot. Limon catheter present in the bladder lumen. 2: No evidence for aortic aneurysm or dissection. 3: Stenosis of the celiac axis, SMA and renal arteries. Carotid Doppler Study 06/28/25 20:17 IMPRESSION: 1. Less than 50% stenosis in the right internal carotid artery by sonographic criteria. 2. Less than 50% stenosis in the left internal carotid artery by sonographic criteria. Chest X-Ray 06/29/25 08:14 Impression: Mild CHF Pelvis Ultrasound 07/03/25 12:59 IMPRESSION: Probable large clot in the urinary bladder which is poorly distended and otherwise not well evaluated. Labs Labs: Laboratory Results - last 24 hr 06/28/25 07/04/25 07/04/25 04:34 11:01 11:02 WBC 26.4 H RBC 2.82 L Hgb 8.5 L Hct 26.1 L MCV 92.6 MCH 30.1 MCHC 32.6 RDW 16.0 H Plt Count 147 L MPV 10.5 H Sodium 135 L Potassium 4.0 Chloride 105 Carbon Dioxide 27 Anion Gap 3 L BUN 32 H Creatinine 0.82 Estim Creat Clear Calc 55 Estimated GFR > 60 Glucose 96 Serum Osmolality 279 L Calcium 7.8 L Phosphorus 2.7 Magnesium 2.3 Albumin 2.6 L 07/05/25 04:09 WBC 25.5 H RBC 2.71 L Hgb 8.0 L Hct 25.0 L MCV 92.3 MCH 29.5 MCHC 32.0 RDW 16.1 H Plt Count 165 MPV 10.2 Sodium 134 L Potassium 4.2 Chloride 106 Carbon Dioxide 25 Anion Gap 3 L BUN 30 H Creatinine 0.97 Estim Creat Clear Calc 47 Estimated GFR > 60 Glucose 103 Serum Osmolality Calcium 7.4 L Phosphorus 3.3 Magnesium 2.2 Albumin 2.5 L
--- NOTE | 2025-07-05 10:08 | PCNFU ---
Nutrition Follow-Up Complete: Inadequate oral intake related to loss of appetite as evidenced by intakes 50% Monitoring intakes, weights, labs, supplement tolerance, vitals, plan of care Follow up in 5 days. Daily rounds Goal: Intakes >50%. Slow progress with goal. Continue same goal Pt current nutrition is Heart healthy diet. Supplements were not re-added when pt came off NPO yesterday. Nutrition recommendation: Oral nutrition supplements: Ensure Plus HP BID (350 kcal, 20 g protein) and nutritional ice cream BID (270 kcal, 9 g protein each) Last recorded weight is 77.5 kg. Bowel Motility: No bowel movements are charted Labs Reviewed: Hgb 8.0, Hct 25, Alb 2.5, Na 134, BUN 30 Meds Noted: Zofran Skin: No skin issues noted Additional Notes: Pt was NPO yesterday and when diet was advanced, supplements were dropped. Supplements reordered. Intakes remain poor, 0-25%. Pt is reportedly not as lethargic. Continue same nutrition care plan.
--- NOTE | 2025-07-05 10:21 | PM.PNCARD ---
Progress Note: A&P Assessment and Plan (1) Atrial fibrillation with rapid ventricular response: Code(s): I48.91 - Unspecified atrial fibrillation Status: Acute Plan 85-year-old man with: Coronary artery disease with previous PCI history of paroxysmal atrial fibrillation. Heart rate control has been challenging. As stated in my office note recently as well as during this hospitalization he was in sinus rhythm at times. I am going to transition his medication to sotalol in place of diltiazem and metoprolol. His renal function has essentially normalized in the should be a reasonable alternative. Ideally he will spend more time in sinus rhythm with sotalol. Obviously is not a candidate for anticoagulation because of gross hematuria. Raul Zepeda MD [facility] Subjective Date/time seen: Date of service: 07/05/25 10:21 Interval history: The patient is 85-year-old male admitted on 06/27/2025 with the complaints of weakness and hematuria with clots. Patient has known history of atrial fibrillation, hypertension and prostate cancer as well as Navarro and esophageal reflux disease DATE OF SERVICE 07/02/2025: He has no chest pain, shortness of breath. Heart rate does increase with mild activity. Date of service 07/03/2025: He states that he had a rough night and did not sleep very well. Otherwise feels okay. He denies any palpitations, chest pain, shortness of breath. Date of service 07/04/2025: Feeling much better today. No chest pain, palpitations, shortness of breath. Heart rate is well controlled. Date of service 07/05/2025: Patient offers no specific complaints today still in atrial fibrillation with moderately rapid ventricular response but with which she is asymptomatic. As stated in the nose he was in sinus rhythm earlier in this hospitalization. Hematuria seems to have slowed but still has red tinged urine in the Limon bag Exam Narrative: AWAKE ALERT. APPEARS STATED AGE Const: General: comfortable and no acute distress HENMT: Face/Nose/Sinus: Normal nares present Mouth: Yes moist mucous membranes Eyes: Sclera: sclerae normal Neck: Neck: supple and no JVD Resp: Effort & Inspection: normal respiratory effort Auscultation: clear to auscultation bilaterally Cardio: Rate: regular rate Rhythm: abnormal rhythm irregularly irregular GI: Inspection: non-distended Auscultation: normal bowel sounds Urinary Catheter: Urinary Catheter: patent and draining, urine red and other (CBI) Skin: General skin exam: normal color Neuro: Cranial nerves: Yes Normal hearing present Speech: normal speech Extrem: General: normal to inspection Psych: Affect: normal affect Objective Data Vital Signs Vital Signs: Vital Signs - 24 hr 07/04/25 11:59 07/04/25 12:00 07/04/25 12:00 Temperature 36.6 C Pulse Rate 118 H 130 H Respiratory Rate 22 H Blood Pressure 120/74 Pulse Oximetry 97 Oxygen Delivery Room Air Fraction of Inspired Oxygen 07/04/25 13:53 07/04/25 14:00 07/04/25 14:00 Temperature Pulse Rate 92 113 H 103 H Respiratory Rate 18 Blood Pressure 103/72 Pulse Oximetry Oxygen Delivery Fraction of Inspired Oxygen 07/04/25 14:00 07/04/25 14:06 07/04/25 16:00 Temperature 36.7 C Pulse Rate 116 H 105 H 103 H Respiratory Rate 19 20 Blood Pressure 103/72 124/72 Pulse Oximetry 97 Oxygen Delivery Fraction of Inspired Oxygen 07/04/25 16:00 07/04/25 16:00 07/04/25 17:59 Temperature Pulse Rate 110 H 117 H Respiratory Rate Blood Pressure Pulse Oximetry Oxygen Delivery Room Air Fraction of Inspired Oxygen 07/04/25 20:00 07/04/25 20:00 07/04/25 20:15 Temperature 37.2 C Pulse Rate 135 H 121 H Respiratory Rate 18 Blood Pressure 137/73 Pulse Oximetry 95 94 Oxygen Delivery Room Air Fraction of Inspired Oxygen 07/04/25 20:15 07/04/25 20:26 07/04/25 22:00 Temperature Pulse Rate 135 H 129 H 130 H Respiratory Rate 14 14 Blood Pressure Pulse Oximetry Oxygen Delivery Fraction of Inspired Oxygen 07/04/25 22:44 07/04/25 22:46 07/05/25 00:00 Temperature 36.7 C 37.0 C Pulse Rate 142 H 142 H 126 H Respiratory Rate 18 18 Blood Pressure 137/88 137/88 144/73 H Pulse Oximetry 95 95 Oxygen Delivery Fraction of Inspired Oxygen 07/05/25 00:00 07/05/25 00:39 07/05/25 02:00 Temperature Pulse Rate 134 H 126 H 121 H Respiratory Rate Blood Pressure 144/73 H Pulse Oximetry Oxygen Delivery Fraction of Inspired Oxygen 07/05/25 02:00 07/05/25 02:10 07/05/25 02:16 Temperature Pulse Rate 118 H 118 H 109 H Respiratory Rate 14 Blood Pressure 135/64 135/64 Pulse Oximetry Oxygen Delivery Fraction of Inspired Oxygen 07/05/25 02:26 07/05/25 03:58 07/05/25 04:00 Temperature 36.6 C Pulse Rate 135 H 130 H 120 H Respiratory Rate 14 18 Blood Pressure 125/66 Pulse Oximetry 93 Oxygen Delivery Fraction of Inspired Oxygen 07/05/25 04:00 07/05/25 06:00 07/05/25 06:00 Temperature Pulse Rate 120 H 128 H 120 H Respiratory Rate Blood Pressure 125/66 140/73 Pulse Oximetry Oxygen Delivery Fraction of Inspired Oxygen 07/05/25 06:02 07/05/25 07:59 07/05/25 08:00 Temperature 36.9 C Pulse Rate 113 H 124 H 123 H Respiratory Rate 23 H Blood Pressure 140/73 135/68 135/68 Pulse Oximetry 98 Oxygen Delivery Fraction of Inspired Oxygen 07/05/25 08:25 07/05/25 08:25 07/05/25 08:25 Temperature Pulse Rate 114 H 114 H 114 H Respiratory Rate 20 20 Blood Pressure Pulse Oximetry 95 95 Oxygen Delivery Room Air Room Air Fraction of Inspired Oxygen 21 07/05/25 08:35 07/05/25 08:39 Temperature Pulse Rate 110 H 123 H Respiratory Rate 20 Blood Pressure Pulse Oximetry Oxygen Delivery Fraction of Inspired Oxygen Intake/Output Intake/Output: Intake & Output 07/02/25 07/03/25 07/04/25 07/05/25 23:59 23:59 23:59 23:59 Intake Total 82498.0 33541.9 1110.4 816.2 Output Total 77764 36065 1800 1250 Balance -6920.0 -2084.1 -689.6 -433.8 Meds/Results Medications: Active Medications Generic Name Dose Route Start Last Admin Trade Name Freq PRN Reason Stop Dose Admin Acetaminophen 650 mg 06/28/25 01:26 Acetaminophen 650 Mg Suppository RECTAL Q6H PRN Mild Pain (1-3) or Fever Acetaminophen 650 mg 06/29/25 10:38 07/03/25 13:37 Acetaminophen 325 Mg Tablet PO 650 mg Q4H PRN Administration Mild Pain (1-3) or Fever Ceftriaxone Sodium 2 gm/ 100 mls @ 200 mls/hr 07/04/25 13:00 07/05/25 08:38 Sodium Chloride IVPB 200 mls/hr DAILY EUGENIO Administration Vancomycin HCl 1,250 mg in 250 mls @ 166.667 mls/hr 07/05/25 14:00 Vancomycin 1,250 Mg/Ns 250 Ml IVPB Q24H EUGENIO Ipratropium [place] 0.5 mg 06/30/25 14:00 07/05/25 08:25 Ipratropium Br 0.02% Inh Soln 0.5 Mg/2.5 Ml Vial INHALATION 0.5 mg Q6HRT EUGENIO Administration Latanoprost 1 drop 06/28/25 21:00 07/04/25 20:37 Latanoprost 0.005% Op Soln 2.5 Ml Btl EACH EYE 1 drop HS EUGENIO Administration Levalbuterol HCl 0.63 mg 06/30/25 14:00 07/05/25 08:25 Levalbuterol Neb 1.25 Mg/3 Ml INHALATION 0.63 mg Q6HRT EUGENIO Administration Ondansetron HCl 4 mg 06/28/25 13:33 06/30/25 12:00 Ondansetron Inj 4 Mg/2 Ml Vial IV PUSH 4 mg Q4H PRN Administration Nausea And Vomiting Sodium Chloride 10 ml 06/28/25 14:00 07/05/25 04:46 Central Line Flush IV PUSH 10 ml Q8HR EUGENIO Administration Sodium Chloride 10 ml 06/28/25 13:03 Central Line Flush IV PUSH PRN PRN with TPN bag changes Sodium Chloride 20 ml 06/28/25 13:03 07/02/25 04:29 Central Line Flush IV PUSH 20 ml PRN PRN Administration after blood draws Sotalol HCl 80 mg 07/05/25 10:25 Sotalol Hcl 80 Mg Tablet PO Q12HR [facility] Radiology Results: ITS Impressions Head CT 06/27/25 21:22 IMPRESSION: No acute intracranial hemorrhage or extra axial fluid collections. All CT scans at this facility are performed using low dose modulation techniques as appropriate to perform exam including the following: automated exposure control; use of iterative reconstruction technique; adjustment of the mA and/or kV according to patient size (this includes techniques or standardized protocols for targeted exams where dose is matched to indication/reason for exam). Chest/Abdomen/Pelvis CTA 06/27/25 22:00 IMPRESSION: 1. Hyperdense soft tissue of the bladder lumen, likely blood clot. Limon catheter present in the bladder lumen. 2: No evidence for aortic aneurysm or dissection. 3: Stenosis of the celiac axis, SMA and renal arteries. Carotid Doppler Study 06/28/25 20:17 IMPRESSION: 1. Less than 50% stenosis in the right internal carotid artery by sonographic criteria. 2. Less than 50% stenosis in the left internal carotid artery by sonographic criteria. Chest X-Ray 06/29/25 08:14 Impression: Mild CHF Pelvis Ultrasound 07/03/25 12:59 IMPRESSION: Probable large clot in the urinary bladder which is poorly distended and otherwise not well evaluated. Labs Labs: Laboratory Results - last 24 hr 06/28/25 07/04/25 07/04/25 04:34 11:01 11:02 WBC 26.4 H RBC 2.82 L Hgb 8.5 L Hct 26.1 L MCV 92.6 MCH 30.1 MCHC 32.6 RDW 16.0 H Plt Count 147 L MPV 10.5 H Sodium 135 L Potassium 4.0 Chloride 105 Carbon Dioxide 27 Anion Gap 3 L BUN 32 H Creatinine 0.82 Estim Creat Clear Calc 55 Estimated GFR > 60 Glucose 96 Serum Osmolality 279 L Calcium 7.8 L Phosphorus 2.7 Magnesium 2.3 Albumin 2.6 L 07/05/25 04:09 WBC 25.5 H RBC 2.71 L Hgb 8.0 L Hct 25.0 L MCV 92.3 MCH 29.5 MCHC 32.0 RDW 16.1 H Plt Count 165 MPV 10.2 Sodium 134 L Potassium 4.2 Chloride 106 Carbon Dioxide 25 Anion Gap 3 L BUN 30 H Creatinine 0.97 Estim Creat Clear Calc 47 Estimated GFR > 60 Glucose 103 Serum Osmolality Calcium 7.4 L Phosphorus 3.3 Magnesium 2.2 Albumin 2.5 L
[2025-07-05] MEDS: SOTALOL HCL 80 MG TABLET PO ×2 (12:05→20:10)
[2025-07-05] MEDS: VANCOMYCIN 1,250 MG/NS 250 ML 1,250 MG/250 ML BAG 166.67 MG IVPB (14:13)
--- NOTE | 2025-07-05 18:05 | PM.IMPN ---
Progress Note: A&P Assessment and Plan (1) Sepsis: Code(s): A41.9 - Sepsis, unspecified organism Status: Acute Assessment and Plan: -his white count was noted to be 20.6 -his heart rate is fast but his blood pressure is normal. -he has chills but no fever. -blood cultures are pending. -patient was empirically placed on Rocephin, doxycycline, and vancomycin. -daily CBC -the patient is lethargic and will only open his eyes when his name is called out. -source unknown at this time. -may consider Infectious Disease consult. -check lactic daily. Lactic is 3.3 -continue with IV fluids -no open areas noted at this time. No skin tears, no abrasions, and no open areas. (2) Paroxysmal A-fib: Code(s): I48.0 - Paroxysmal atrial fibrillation Status: Acute Assessment and Plan: -the patient is in sinus tachycardia with occasional supraventricular premature complexes. -the patient had been on Eliquis in the past but recently had hematuria and was taken off of the blood thinner. -patient was given a dose of Cardizem in the emergency room. -continue with metoprolol -continue with IV fluids as the patient currently has tachycardia with premature supraventricular beats (3) Hypertension: Code(s): I10 - Essential (primary) hypertension Status: Acute Assessment and Plan: -patient's blood pressure is currently 133/57. -resume home medications when the patient is awake enough to take oral medication and if blood pressure allows. (4) Sleep apnea: Qualifiers: Sleep apnea type: obstructive Qualified Code(s): G47.33 - Obstructive sleep apnea (adult) (pediatric) Code(s): G47.30 - Sleep apnea, unspecified Status: Acute Assessment and Plan: Continue with auto titrate for CPAP/BiPAP (5) Hyponatremia: Code(s): E87.1 - Hypo-osmolality and hyponatremia Status: Acute Assessment and Plan: -most likely related to dehydration. -continue with IV fluids. Monitor closely as to not cause fluid overload (last echo 07/21/2024 shows a normal left ventricular size with a preserved systolic contractility.) -check urine osmolality and urine sodium. 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 -Chest/Abdomen/Pelvis CTA 06/27/25 22:00 IMPRESSION: 1. Hyperdense soft tissue of the bladder lumen, likely blood clot. Limon catheter present in the bladder lumen. 2: No evidence for aortic aneurysm or dissection. 3: Stenosis of the celiac axis, SMA and renal arteries. May consider vascular consult outpatient (7) Encephalopathy: Code(s): G93.40 - Encephalopathy, unspecified Status: Acute Assessment and Plan: -could be due to infectious process. -could be related to the dehydration. -Head CT 06/27/25 21:22 IMPRESSION: No acute intracranial hemorrhage or extra axial fluid collections. -continue with neuro checks every 4 hours. -neurology consult. -a stroke workup which include an echo with bubble, an ultrasound of the carotids, as well as an MRI of the brain (8) Hypoxia: Code(s): R09.02 - Hypoxemia Status: Acute Assessment and Plan: -titrate oxygen to keep O2 saturations above 92%. -trend troponin -check an echo, last echo on 07/21/2024 was read as a following Summary 1. Definity contrast injected to improve visualization. 2. Normal left ventricular size with preserved systolic contractility. 3. Markedly dilated left atrium. 4. Mild MR. 5. Atrial fibrillation. (9) Hematuria: Code(s): R31.9 - Hematuria, unspecified Status: Acute Assessment and Plan: -consult urology -every 6 hour H&H -the patient has a history of prostate cancer. Is reported that the patient had a procedure within the last 2 weeks. -Limon catheter was placed in the emergency room. -H&H is currently 9.9 and 30.6. Plan patient with septic shock most likely 2/2 UTI, patient blood pressure is trending up and patient is off low pressures, patient with Atrial flutter seen by olive packer and patient is on diltiazem drip and rate is trending down, and started on metoprolol in home to wean patient off diltiazem drip, patient blood culture is growing multiple organisms E coli, and Proteus mirabilis, patient is being treated with meropenem, patient with hematuria suspect most likely due to UTI with history of radiation therapy, cystitis , patient is on CBI and hematuria is improving, patient is seen by forensic audit expert and urologist. patient hematuria is improving and there are no blood clots, patient has elevated tropes, seen by the olive packer suspect most likely type II infarct due to anemia and elevated Scr, today patient is seen by his olive packer and concern about his HR which is difficulty to manage, the olive packer added sotalol and stop diltiazem and metoprolol will monitor, patient with hematuria and on CBI, seen by his urologist patient continue to have slight hematuria, will continue CBI at a slow rate and monitor. Subjective Date/time seen: 07/05/25 18:05 Interval history: Weakness and hematuria H&P-Narrative: This is an 85-year-old male patient who resides with his . He has a history of paroxysmal AFib, GERD, hypertension and prostate cancer. The patient previously had gone through some urology procedures over the last 2 weeks. The patient was sent home with Limon catheter which was subsequently removed today. Patient was sent home without a Limon catheter. When the patient got home today he went to the bathroom and then does not recall getting back on the couch. Is reported that the saw him get down on his knees and slumped over on the ground and fell asleep. When EMS came with to their home it was noted that the patient was down for few hours. He denies any chest pain or shortness of breath any abdominal pain, nausea, vomiting, or headache. Head CT was read as no acute intracranial hemorrhage or extra-axial fluid collections. Chest/abdomen/pelvis CTA was read as a followingIMPRESSION: 1. Hyperdense soft tissue of the bladder lumen, likely blood clot. Limon catheter present in the bladder lumen. 2: No evidence for aortic aneurysm or dissection. 3: Stenosis of the celiac axis, SMA and renal arteries. The patient is very lethargic and not answering questions. Lab 20.6 with H&H 9.9 and 30.6 on his hematology. ABGs pH 7.480 with low bicarb and PO2 was low at 73.4. Oxygen was applied at 2 L per nasal cannula. His heart rate has been in the 1 teens with blood pressure 145/77. His lowest O2 saturation was 85 point has come up to 97%. Sodium was low at 129. His glucose is 116. Lactic is 3.3. Calcium is low at 8.3. Urine is turbid with 3+ protein, 2+ ketones, 3+ blood, 1+ urine bilirubin, 51-100 rbc's. Patient was given diltiazem IV push x1 Benadryl, prednisone, morphine, Rocephin, and IV fluids. The Lmion catheter was placed in the emergency room patient with septic shock most likely 2/2 UTI, patient blood pressure is trending up and patient is off low pressures, patient with Atrial flutter seen by olive packer and patient is on diltiazem drip and rate is trending down, and started on metoprolol in home to wean patient off diltiazem drip, patient blood culture is growing multiple organisms E coli, and Proteus mirabilis, patient is being treated with meropenem, patient with hematuria suspect most likely due to UTI with history of radiation therapy, cystitis , patient is on CBI and hematuria is improving, patient is seen by forensic audit expert and urologist. patient hematuria is improving and there are no blood clots, patient has elevated tropes, seen by the olive packer suspect most likely type II infarct due to anemia and elevated Scr, today patient is seen by his olive packer and concern about his HR which is difficulty to manage, the olive packer added sotalol and stop diltiazem and metoprolol will monitor, patient with hematuria and on CBI, seen by his urologist patient continue to have slight hematuria, will continue CBI at a slow rate and monitor. Review of Systems Review of Systems: The patient will open his eyes when his name is called. However he would not answer any questions. All systems reviewed & are unremarkable except as noted in HPI and below ROS unobtainable: Yes unobtainable due to medical condition and unobtainable due to mental status Neurologic: Reports confusion Psychiatric: Psychiatric: Reports confusion Exam Narrative: Patient is comfortable, NAD HEENT: eyes are clear and none icteric LUNGS:CTA HEART: RR S1S2 ABD: BS+, Soft and nontender Lower extremities: no edema SKIN: nonjaundiced Neuro: grossly intact. Objective Data Vital Signs Vital Signs: Vital Signs - 24 hr 07/04/25 20:00 07/04/25 20:00 07/04/25 20:15 Temperature 37.2 C Pulse Rate 135 H 121 H Respiratory Rate 18 Blood Pressure 137/73 Pulse Oximetry 95 94 Oxygen Delivery Room Air Fraction of Inspired Oxygen 07/04/25 20:15 07/04/25 20:26 07/04/25 22:00 Temperature Pulse Rate 135 H 129 H 130 H Respiratory Rate 14 14 Blood Pressure Pulse Oximetry Oxygen Delivery Fraction of Inspired Oxygen 07/04/25 22:44 07/04/25 22:46 07/05/25 00:00 Temperature 36.7 C 37.0 C Pulse Rate 142 H 142 H 126 H Respiratory Rate 18 18 Blood Pressure 137/88 137/88 144/73 H Pulse Oximetry 95 95 Oxygen Delivery Fraction of Inspired Oxygen 07/05/25 00:00 07/05/25 00:39 07/05/25 02:00 Temperature Pulse Rate 134 H 126 H 121 H Respiratory Rate Blood Pressure 144/73 H Pulse Oximetry Oxygen Delivery Fraction of Inspired Oxygen 07/05/25 02:00 07/05/25 02:10 07/05/25 02:16 Temperature Pulse Rate 118 H 118 H 109 H Respiratory Rate 14 Blood Pressure 135/64 135/64 Pulse Oximetry Oxygen Delivery Fraction of Inspired Oxygen 07/05/25 02:26 07/05/25 03:58 07/05/25 04:00 Temperature 36.6 C Pulse Rate 135 H 130 H 120 H Respiratory Rate 14 18 Blood Pressure 125/66 Pulse Oximetry 93 Oxygen Delivery Fraction of Inspired Oxygen 07/05/25 04:00 07/05/25 06:00 07/05/25 06:00 Temperature Pulse Rate 120 H 128 H 120 H Respiratory Rate Blood Pressure 125/66 140/73 Pulse Oximetry Oxygen Delivery Fraction of Inspired Oxygen 07/05/25 06:02 07/05/25 07:59 07/05/25 08:00 Temperature 36.9 C Pulse Rate 113 H 124 H 123 H Respiratory Rate 23 H Blood Pressure 140/73 135/68 135/68 Pulse Oximetry 98 Oxygen Delivery Fraction of Inspired Oxygen 07/05/25 08:00 07/05/25 08:00 07/05/25 08:25 Temperature Pulse Rate 123 H 126 H 114 H Respiratory Rate 20 Blood Pressure Pulse Oximetry 95 95 Oxygen Delivery Room Air Room Air Fraction of Inspired Oxygen 07/05/25 08:25 07/05/25 08:25 07/05/25 08:35 Temperature Pulse Rate 114 H 114 H 110 H Respiratory Rate 20 20 20 Blood Pressure Pulse Oximetry 95 Oxygen Delivery Room Air Fraction of Inspired Oxygen 21 07/05/25 08:39 07/05/25 10:00 07/05/25 10:00 Temperature Pulse Rate 123 H 109 H 109 H Respiratory Rate Blood Pressure 125/69 125/69 Pulse Oximetry Oxygen Delivery Fraction of Inspired Oxygen 07/05/25 10:00 07/05/25 12:00 07/05/25 12:00 Temperature 36.2 C L Pulse Rate 98 104 H 97 Respiratory Rate 19 19 Blood Pressure 119/68 Pulse Oximetry 97 97 Oxygen Delivery Room Air Fraction of Inspired Oxygen 07/05/25 12:00 07/05/25 12:05 07/05/25 12:05 Temperature Pulse Rate 97 97 97 Respiratory Rate Blood Pressure 119/68 Pulse Oximetry Oxygen Delivery Fraction of Inspired Oxygen 07/05/25 13:15 07/05/25 13:30 07/05/25 14:00 Temperature Pulse Rate 110 H 97 83 Respiratory Rate 18 18 Blood Pressure Pulse Oximetry Oxygen Delivery Fraction of Inspired Oxygen 07/05/25 16:00 Temperature 36.6 C Pulse Rate 100 Respiratory Rate 20 Blood Pressure 119/69 Pulse Oximetry 97 Oxygen Delivery Fraction of Inspired Oxygen Intake/Output Intake/Output: Intake & Output 07/02/25 07/03/25 07/04/25 07/05/25 23:59 23:59 23:59 23:59 Intake Total 04494.0 81296.9 1110.4 1309.6 Output Total 47068 20707 1800 1250 Balance -6920.0 -2084.1 -689.6 59.6 Meds/Results Medications: Active Medications Generic Name Dose Route Start Last Admin Trade Name Freq PRN Reason Stop Dose Admin Acetaminophen 650 mg 06/28/25 01:26 Acetaminophen 650 Mg Suppository RECTAL Q6H PRN Mild Pain (1-3) or Fever Acetaminophen 650 mg 06/29/25 10:38 07/03/25 13:37 Acetaminophen 325 Mg Tablet PO 650 mg Q4H PRN Administration Mild Pain (1-3) or Fever Ceftriaxone Sodium 2 gm/ 100 mls @ 200 mls/hr 07/04/25 13:00 07/05/25 12:44 Sodium Chloride IVPB Infused DAILY EUGENIO Infusion Vancomycin HCl 1,250 mg in 250 mls @ 166.667 mls/hr 07/05/25 14:00 07/05/25 14:13 Vancomycin 1,250 Mg/Ns 250 Ml IVPB 166.67 mls/hr Q24H EUGENIO Administration Ipratropium [place] 0.5 mg 06/30/25 14:00 07/05/25 13:15 Ipratropium Br 0.02% Inh Soln 0.5 Mg/2.5 Ml Vial INHALATION 0.5 mg Q6HRT EUGENIO Administration Latanoprost 1 drop 06/28/25 21:00 07/04/25 20:37 Latanoprost 0.005% Op Soln 2.5 Ml Btl EACH EYE 1 drop HS EUGENIO Administration Levalbuterol HCl 0.63 mg 06/30/25 14:00 07/05/25 13:15 Levalbuterol Neb 1.25 Mg/3 Ml INHALATION 0.63 mg Q6HRT EUGENIO Administration Ondansetron HCl 4 mg 06/28/25 13:33 06/30/25 12:00 Ondansetron Inj 4 Mg/2 Ml Vial IV PUSH 4 mg Q4H PRN Administration Nausea And Vomiting Sodium Chloride 10 ml 06/28/25 14:00 07/05/25 14:13 Central Line Flush IV PUSH 10 ml Q8HR EUGENIO Administration Sodium Chloride 10 ml 06/28/25 13:03 Central Line Flush IV PUSH PRN PRN with TPN bag changes Sodium Chloride 20 ml 06/28/25 13:03 07/02/25 04:29 Central Line Flush IV PUSH 20 ml PRN PRN Administration after blood draws Sotalol HCl 80 mg 07/05/25 10:25 07/05/25 12:05 Sotalol Hcl 80 Mg Tablet PO 80 mg Q12HR EUGENIO Administration Radiology Results: ITS Impressions Head CT 06/27/25 21:22 IMPRESSION: No acute intracranial hemorrhage or extra axial fluid collections. All CT scans at this facility are performed using low dose modulation techniques as appropriate to perform exam including the following: automated exposure control; use of iterative reconstruction technique; adjustment of the mA and/or kV according to patient size (this includes techniques or standardized protocols for targeted exams where dose is matched to indication/reason for exam). Chest/Abdomen/Pelvis CTA 06/27/25 22:00 IMPRESSION: 1. Hyperdense soft tissue of the bladder lumen, likely blood clot. Limon catheter present in the bladder lumen. 2: No evidence for aortic aneurysm or dissection. 3: Stenosis of the celiac axis, SMA and renal arteries. Carotid Doppler Study 06/28/25 20:17 IMPRESSION: 1. Less than 50% stenosis in the right internal carotid artery by sonographic criteria. 2. Less than 50% stenosis in the left internal carotid artery by sonographic criteria. Chest X-Ray 06/29/25 08:14 Impression: Mild CHF Pelvis Ultrasound 07/03/25 12:59 IMPRESSION: Probable large clot in the urinary bladder which is poorly distended and otherwise not well evaluated. Labs Labs: Laboratory Results - last 24 hr 06/28/25 07/05/25 04:34 04:09 WBC 25.5 H RBC 2.71 L Hgb 8.0 L Hct 25.0 L MCV 92.3 MCH 29.5 MCHC 32.0 RDW 16.1 H Plt Count 165 MPV 10.2 Sodium 134 L Potassium 4.2 Chloride 106 Carbon Dioxide 25 Anion Gap 3 L BUN 30 H Creatinine 0.97 Estim Creat Clear Calc 47 Estimated GFR > 60 Glucose 103 Serum Osmolality 279 L Calcium 7.4 L Phosphorus 3.3 Magnesium 2.2 Albumin 2.5 L Quality VTE Prophylaxis VTE prophylaxis: mechanical ordered
[2025-07-05] MEDS: LATANOPROST 0.005% OP SOLN 2.5 ML BTL 1 DROP EACH EYE (20:10)
[2025-07-06] VITALS (18 sets, daily range): BP systolic 99–128; BP diastolic 54–77; PULSE 90–113; RESP 18–20; TEMP 36.6–36.9; O2SAT 96–99
[2025-07-06] MEDS: IPRATROPIUM BR 0.02% INH SOLN 0.5 MG/2.5 ML VIAL INHALATION (01:39)
[2025-07-06] MEDS: CENTRAL LINE FLUSH 10 ML IV PUSH ×3 (05:01→20:48)
[2025-07-06 05:23] LABS: Hematocrit 23.1 % (42.0-52.0); Hemoglobin 7.3 g/dL (14.0-18.0); Mean Corpuscular HGB Conc 31.6 g/dl (32-36); Mean Corpuscular Hemoglobin 29.7 pg (26-34); Mean Corpuscular Volume 93.9 fl (80-100); Platelet Count Result 176 k/mm3 (150-375); Red Blood Count 2.46 M/mm3 (4.6-6.20); White Blood Count 16.6 K/mm3 (4.5-10.0)
[2025-07-06 05:30] LABS: Albumin Level 2.3 g/dL (3.5-5.1); Anion Gap 3 mmol/L (4-12); Blood Urea Nitrogen 26 mg/dL (9-20); Calcium 7.3 mg/dL (8.4-10.2); Carbon Dioxide 26 mmol/L (22-30); Chloride 105 mmol/L (98-107); Estimated CRCL calculation 59 ml/min; Estimated Glomerular Filt Rate > 60; Glucose 73 mg/dL (65-110); Magnesium 2.2 mg/dL (1.6-2.3); Potassium 3.5 mmol/L (3.4-5.0); Sodium 134 mmol/L (137-145)
[2025-07-06] MEDS: cefTRIAXone 2 GM in SODIUM CHLORIDE 0.9% IV 100 ML 200 ML IVPB (08:23)
[2025-07-06] MEDS: SOTALOL HCL 80 MG TABLET PO ×2 (08:24→20:47)
--- NOTE | 2025-07-06 10:35 | PM.PNCARD ---
Progress Note: A&P Assessment and Plan (1) Atrial fibrillation with rapid ventricular response: Code(s): I48.91 - Unspecified atrial fibrillation Status: Acute Plan Impression; 1. Elevated cardiac troponin T in absence of chest pain OR ischemic ST changes on EKG suggestive of non ST segment elevation myocardial infarction. Patient has significant anemia and elevated creatinine which is contributing to this type 2, non thrombotic myocardial injury. 2. Known history of prostate cancer. Status post the prostate procedure no followed by removal of catheter and patient has hematuria with clots. 3. History of paroxysmal atrial fibrillation. EKG reveals normal sinus rhythm on admission. Patient is on apixaban as well as aspirin at home. 4. Acute blood loss anemia with hemoglobin as low as 8.0. 5. Sepsis with mental status changes. Improved 6. Chronic 3B kidney failure. Creatinine has improved and is at 1.3 today. 7. Hypotension on admission. Blood pressure does remain low and most recent is 95/68 mm of mercury with heart rate of 132 per minute. 8. Paroxysmal atrial fibrillation with rapid ventricular response noted this morning. EKG this morning shows atrial fibrillation with heart rate 172 per minute. Recommendations: 1. He has been transitioned to sotalol. Remains in atrial fibrillation with controlled ventricular response. QTC is stable. Continue sotalol 80 mg b.i.d.. Sotalol monitoring orders have been placed. 2. Hematuria is resolving. Continue to hold systemic anticoagulation for now and resume if/when able. LONG-TERM, CONSIDER LEFT ATRIAL APPENDAGE OCCLUDING DEVICE 3. Continue telemetry monitoring. Subjective Date/time seen: 07/06/25 10:35 Interval history: The patient is 85-year-old male admitted on 06/27/2025 with the complaints of weakness and hematuria with clots. Patient has known history of atrial fibrillation, hypertension and prostate cancer as well as gastro and esophageal reflux disease DATE OF SERVICE 07/02/2025: He has no chest pain, shortness of breath. Heart rate does increase with mild activity. Date of service 07/03/2025: He states that he had a rough night and did not sleep very well. Otherwise feels okay. He denies any palpitations, chest pain, shortness of breath. Date of service 07/04/2025: Feeling much better today. No chest pain, palpitations, shortness of breath. Heart rate is well controlled. Date of service 07/05/2025: Patient offers no specific complaints today still in atrial fibrillation with moderately rapid ventricular response but with which she is asymptomatic. As stated in the nose he was in sinus rhythm earlier in this hospitalization. Hematuria seems to have slowed but still has red tinged urine in the Limon bag Date of service 07/06/2025: He is feeling better. Remains in atrial fibrillation with controlled ventricular response. Review of Systems Review of Systems: Twelve point review of system was completed. Pertinent positive and negative findings per HPI. Constitutional positive for weakness the and recent fall. Negative for fever or chills. Head and neck is negative Cardiovascular negative for chest pain or shortness of breath or palpitation. Pulmonary system negative for shortness of breath, wheezing or hemoptysis. Gastrointestinal system negative for abdominal pain, nausea vomiting or diarrhea. Genitourinary system positive for recent prostate surgery, removal of Limon catheter and hematuria with clot Neurovascular positive for recent episode of mental status changes and fall on the ground the patient does not remember Musculoskeletal positive for bruises on the knee. All systems reviewed & are unremarkable except as noted in HPI and below Constitutional: Constitutional: Denies difficulty sleeping ENT: Reports Normal hearing present Cardiovascular: Cardiovascular: Denies chest pain and Denies dyspnea Respiratory: Respiratory: Denies dyspnea Genitourinary: Genitourinary: Reports hematuria Neurologic: Reports Normal hearing present Exam Narrative: AWAKE ALERT. APPEARS STATED AGE Const: General: comfortable and no acute distress HENMT: Face/Nose/Sinus: Normal nares present Mouth: Yes moist mucous membranes Eyes: Sclera: sclerae normal Neck: Neck: supple and no JVD Resp: Effort & Inspection: normal respiratory effort Auscultation: clear to auscultation bilaterally Cardio: Rate: regular rate Rhythm: abnormal rhythm irregularly irregular GI: Inspection: non-distended Auscultation: normal bowel sounds Urinary Catheter: Urinary Catheter: patent and draining, urine red and other (CBI) Skin: General skin exam: normal color Neuro: Cranial nerves: Yes Normal hearing present Speech: normal speech Extrem: General: normal to inspection Psych: Affect: normal affect Objective Data Vital Signs Vital Signs: Vital Signs - 24 hr 07/05/25 12:00 07/05/25 12:00 07/05/25 12:00 Temperature 36.2 C L Pulse Rate 104 H 97 97 Respiratory Rate 19 19 Blood Pressure 119/68 Pulse Oximetry 97 97 Oxygen Delivery Room Air Fraction of Inspired Oxygen 07/05/25 12:05 07/05/25 12:05 07/05/25 13:15 Temperature Pulse Rate 97 97 110 H Respiratory Rate 18 Blood Pressure 119/68 Pulse Oximetry Oxygen Delivery Fraction of Inspired Oxygen 07/05/25 13:30 07/05/25 14:00 07/05/25 16:00 Temperature 36.6 C Pulse Rate 97 83 100 Respiratory Rate 18 20 Blood Pressure 119/69 Pulse Oximetry 97 Oxygen Delivery Fraction of Inspired Oxygen 07/05/25 16:00 07/05/25 16:00 07/05/25 18:00 Temperature Pulse Rate 100 83 102 H Respiratory Rate 20 Blood Pressure Pulse Oximetry 97 Oxygen Delivery Room Air Fraction of Inspired Oxygen 07/05/25 20:00 07/05/25 20:00 07/05/25 20:07 Temperature 36.7 C Pulse Rate 98 98 84 Respiratory Rate 20 16 Blood Pressure 121/75 Pulse Oximetry 97 96 Oxygen Delivery Room Air Fraction of Inspired Oxygen 21 07/05/25 20:10 07/05/25 20:14 07/05/25 20:17 Temperature Pulse Rate 96 122 H 122 H Respiratory Rate 20 20 Blood Pressure Pulse Oximetry 97 Oxygen Delivery Room Air Fraction of Inspired Oxygen 21 07/05/25 20:21 07/05/25 20:23 07/05/25 21:23 Temperature Pulse Rate 103 H 100 92 Respiratory Rate 20 Blood Pressure Pulse Oximetry 95 Oxygen Delivery Room Air Fraction of Inspired Oxygen 07/05/25 23:30 07/05/25 23:49 07/05/25 23:49 Temperature 37.0 C Pulse Rate 95 92 92 Respiratory Rate 18 18 Blood Pressure 114/68 Pulse Oximetry 97 97 Oxygen Delivery Room Air Fraction of Inspired Oxygen 21 07/06/25 01:39 07/06/25 01:48 07/06/25 02:00 Temperature Pulse Rate 94 99 96 Respiratory Rate 20 20 Blood Pressure Pulse Oximetry Oxygen Delivery Fraction of Inspired Oxygen 07/06/25 04:00 07/06/25 04:00 07/06/25 04:08 Temperature 36.9 C Pulse Rate 105 H 105 H 107 H Respiratory Rate 18 18 Blood Pressure 114/77 Pulse Oximetry 96 96 Oxygen Delivery Room Air Fraction of Inspired Oxygen 21 07/06/25 06:00 07/06/25 08:00 07/06/25 08:00 Temperature 36.6 C Pulse Rate 96 96 Respiratory Rate 18 Blood Pressure 128/54 L Pulse Oximetry 96 Oxygen Delivery Room Air Fraction of Inspired Oxygen 07/06/25 08:00 07/06/25 08:24 07/06/25 10:00 Temperature Pulse Rate 113 H 107 H 111 H Respiratory Rate Blood Pressure Pulse Oximetry Oxygen Delivery Fraction of Inspired Oxygen Intake/Output Intake/Output: Intake & Output 07/03/25 07/04/25 07/05/25 07/06/25 23:59 23:59 23:59 23:59 Intake Total 22057.9 1110.4 1559.6 350 Output Total 52457 1800 1650 1400 [facility] [place] -2084.1 -689.6 -90.4 -1050 Meds/Results Medications: Active Medications Generic Name Dose Route Start Last Admin Trade Name Freq PRN Reason Stop Dose Admin Acetaminophen 650 mg 06/28/25 01:26 Acetaminophen 650 Mg Suppository RECTAL Q6H PRN Mild Pain (1-3) or Fever Acetaminophen 650 mg 06/29/25 10:38 07/03/25 13:37 Acetaminophen 325 Mg Tablet PO 650 mg Q4H PRN Administration Mild Pain (1-3) or Fever Ceftriaxone Sodium 2 gm/ 100 mls @ 200 mls/hr 07/04/25 13:00 07/06/25 08:23 Sodium Chloride IVPB 200 mls/hr DAILY EUGENIO Administration Vancomycin HCl 1,250 mg in 250 mls @ 166.667 mls/hr 07/05/25 14:00 07/05/25 16:00 Vancomycin 1,250 Mg/Ns 250 Ml IVPB Infused Q24H EUGENIO Infusion Ipratropium Ethel 0.5 mg 06/30/25 14:00 07/06/25 07:42 Ipratropium Br 0.02% Inh Soln 0.5 Mg/2.5 Ml Vial INHALATION Not Given Q6HRT EUGENIO Latanoprost 1 drop 06/28/25 21:00 07/05/25 20:10 Latanoprost 0.005% Op Soln 2.5 Ml Btl EACH EYE 1 drop HS EUGENIO Administration Levalbuterol HCl 0.63 mg 06/30/25 14:00 07/06/25 07:42 Levalbuterol Neb 1.25 Mg/3 Ml INHALATION Not Given Q6HRT [facility] Ondansetron HCl 4 mg 06/28/25 13:33 06/30/25 12:00 Ondansetron Inj 4 Mg/2 Ml Vial IV PUSH 4 mg Q4H PRN Administration Nausea And Vomiting Sodium Chloride 10 ml 06/28/25 14:00 07/06/25 05:01 Central Line Flush IV PUSH 10 ml Q8HR EUGENIO Administration Sodium Chloride 10 ml 06/28/25 13:03 Central Line Flush IV PUSH PRN PRN with TPN bag changes Sodium Chloride 20 ml 06/28/25 13:03 07/02/25 04:29 Central Line Flush IV PUSH 20 ml PRN PRN Administration after blood draws Sotalol HCl 80 mg 07/05/25 10:25 07/06/25 08:24 Sotalol Hcl 80 Mg Tablet PO 80 mg Q12HR EUGENIO Administration Radiology Results: ITS Impressions Head CT 06/27/25 21:22 IMPRESSION: No acute intracranial hemorrhage or extra axial fluid collections. All CT scans at this facility are performed using low dose modulation techniques as appropriate to perform exam including the following: automated exposure control; use of iterative reconstruction technique; adjustment of the mA and/or kV according to patient size (this includes techniques or standardized protocols for targeted exams where dose is matched to indication/reason for exam). Chest/Abdomen/Pelvis CTA 06/27/25 22:00 IMPRESSION: 1. Hyperdense soft tissue of the bladder lumen, likely blood clot. Limon catheter present in the bladder lumen. 2: No evidence for aortic aneurysm or dissection. 3: Stenosis of the celiac axis, SMA and renal arteries. Carotid Doppler Study 06/28/25 20:17 IMPRESSION: 1. Less than 50% stenosis in the right internal carotid artery by sonographic criteria. 2. Less than 50% stenosis in the left internal carotid artery by sonographic criteria. Chest X-Ray 06/29/25 08:14 Impression: Mild CHF Pelvis Ultrasound 07/03/25 12:59 IMPRESSION: Probable large clot in the urinary bladder which is poorly distended and otherwise not well evaluated. Labs Labs: Laboratory Results - last 24 hr 07/06/25 04:54 WBC 16.6 H RBC 2.46 L Hgb 7.3 L Hct 23.1 L MCV 93.9 MCH 29.7 MCHC 31.6 L RDW 16.3 H Plt Count 176 MPV 10.3 Sodium 134 L Potassium 3.5 Chloride 105 Carbon Dioxide 26 Anion Gap 3 L BUN 26 H Creatinine 0.75 Estim Creat Clear Calc 59 Estimated GFR > 60 Glucose 73 Calcium 7.3 L Phosphorus 3.1 Magnesium 2.2 Albumin 2.3 L Quality VTE Prophylaxis VTE prophylaxis: mechanical ordered
--- NOTE | 2025-07-06 10:47 | ECG_ITS ---
Test Date: 2025-07-06 11:04:10 Measurements Intervals [place] Rate: 98 P: 0 AL: 0 QRS: -5 QRSD: 83 T: -59 QT: 359 QTc: 458 Interpretive Statements ATRIAL FIBRILLATION LOW QRS VOLTAGE [QRS DEFLECTION < 0.5/1.0 mV IN LIMB/CHEST LEADS] INFERIOR INFARCT, OLD Compared to ECG 06/28/2025 21:16:19 NO SIGNIFICANT CHANGES Electronically Signed On 07-06-2025 12:34:10 MANAGER TRAFFIC by Vickey Fortune M.D.
--- NOTE | 2025-07-06 11:17 | PC.NURSE ---
This nurse spoke with Nereida Cabrera NP who stated that the patient is not able to come off of his crystal slicer to go to MRI at this time.
--- NOTE | 2025-07-06 14:19 | PM.IMPN ---
Progress Note: A&P Assessment and Plan (1) Sepsis: Code(s): A41.9 - Sepsis, unspecified organism Status: Acute Assessment and Plan: -his white count was noted to be 20.6 -his heart rate is fast but his blood pressure is normal. -he has chills but no fever. -blood cultures are pending. -patient was empirically placed on Rocephin, doxycycline, and vancomycin. -daily CBC -the patient is lethargic and will only open his eyes when his name is called out. -source unknown at this time. -may consider Infectious Disease consult. -check lactic daily. Lactic is 3.3 -continue with IV fluids -no open areas noted at this time. No skin tears, no abrasions, and no open areas. (2) Paroxysmal A-fib: Code(s): I48.0 - Paroxysmal atrial fibrillation Status: Acute Assessment and Plan: -the patient is in sinus tachycardia with occasional supraventricular premature complexes. -the patient had been on Eliquis in the past but recently had hematuria and was taken off of the blood thinner. -patient was given a dose of Cardizem in the emergency room. -continue with metoprolol -continue with IV fluids as the patient currently has tachycardia with premature supraventricular beats (3) Hypertension: Code(s): I10 - Essential (primary) hypertension Status: Acute Assessment and Plan: -patient's blood pressure is currently 133/57. -resume home medications when the patient is awake enough to take oral medication and if blood pressure allows. (4) Sleep apnea: Qualifiers: Sleep apnea type: obstructive Qualified Code(s): G47.33 - Obstructive sleep apnea (adult) (pediatric) Code(s): G47.30 - Sleep apnea, unspecified Status: Acute Assessment and Plan: Continue with auto titrate for CPAP/BiPAP (5) Hyponatremia: Code(s): E87.1 - Hypo-osmolality and hyponatremia Status: Acute Assessment and Plan: -most likely related to dehydration. -continue with IV fluids. Monitor closely as to not cause fluid overload (last echo 07/21/2024 shows a normal left ventricular size with a preserved systolic contractility.) -check urine osmolality and urine sodium. 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 -Chest/Abdomen/Pelvis CTA 06/27/25 22:00 IMPRESSION: 1. Hyperdense soft tissue of the bladder lumen, likely blood clot. Limon catheter present in the bladder lumen. 2: No evidence for aortic aneurysm or dissection. 3: Stenosis of the celiac axis, SMA and renal arteries. May consider vascular consult outpatient (7) Encephalopathy: Code(s): G93.40 - Encephalopathy, unspecified Status: Acute Assessment and Plan: -could be due to infectious process. -could be related to the dehydration. -Head CT 06/27/25 21:22 IMPRESSION: No acute intracranial hemorrhage or extra axial fluid collections. -continue with neuro checks every 4 hours. -neurology consult. -a stroke workup which include an echo with bubble, an ultrasound of the carotids, as well as an MRI of the brain (8) Hypoxia: Code(s): R09.02 - Hypoxemia Status: Acute Assessment and Plan: -titrate oxygen to keep O2 saturations above 92%. -trend troponin -check an echo, last echo on 07/21/2024 was read as a following Summary 1. Definity contrast injected to improve visualization. 2. Normal left ventricular size with preserved systolic contractility. 3. Markedly dilated left atrium. 4. Mild MR. 5. Atrial fibrillation. (9) Hematuria: Code(s): R31.9 - Hematuria, unspecified Status: Acute Assessment and Plan: -consult urology -every 6 hour H&H -the patient has a history of prostate cancer. Is reported that the patient had a procedure within the last 2 weeks. -Limon catheter was placed in the emergency room. -H&H is currently 9.9 and 30.6. Plan patient with septic shock most likely 2/2 UTI, patient blood pressure is trending up and patient is off low pressures, patient with Atrial flutter seen by metal sprayer protective coating and patient is on diltiazem drip and rate is trending down, and started on metoprolol in home to wean patient off diltiazem drip, patient blood culture is growing multiple organisms E coli, and Proteus mirabilis, patient is being treated with meropenem, patient with hematuria suspect most likely due to UTI with history of radiation therapy, cystitis , patient is on CBI and hematuria is improving, patient is seen by assembler product and urologist. patient hematuria is improving and there are no blood clots, patient has elevated tropes, seen by the metal sprayer protective coating suspect most likely type II infarct due to anemia and elevated Scr, today patient is seen by his metal sprayer protective coating and concern about his HR which is difficulty to manage, the metal sprayer protective coating added sotalol and stop diltiazem and metoprolol will monitor, patient with hematuria and on CBI, seen by his urologist patient continue to have slight hematuria, will continue CBI at a slow rate and monitor. patient continued on sotalol and his HR is down, seen by the metal sprayer protective coating, will monitor, his hematuria has improved seen by the urologist service and clamped CBI will monitor and further recommendation to follow Subjective Date/time seen: 07/06/25 14:19 Interval history: patient with septic shock most likely 2/2 UTI, patient blood pressure is trending up and patient is off low pressures, patient with Atrial flutter seen by metal sprayer protective coating and patient is on diltiazem drip and rate is trending down, and started on metoprolol in home to wean patient off diltiazem drip, patient blood culture is growing multiple organisms E coli, and Proteus mirabilis, patient is being treated with meropenem, patient with hematuria suspect most likely due to UTI with history of radiation therapy, cystitis , patient is on CBI and hematuria is improving, patient is seen by assembler product and urologist. patient hematuria is improving and there are no blood clots, patient has elevated tropes, seen by the metal sprayer protective coating suspect most likely type II infarct due to anemia and elevated Scr, today patient is seen by his metal sprayer protective coating and concern about his HR which is difficulty to manage, the metal sprayer protective coating added sotalol and stop diltiazem and metoprolol will monitor, patient with hematuria and on CBI, seen by his urologist patient continue to have slight hematuria, will continue CBI at a slow rate and monitor. patient continued on sotalol and his HR is down, seen by the metal sprayer protective coating, will monitor, his hematuria has improved seen by the urologist service and clamped CBI will monitor and further recommendation to follow Review of Systems Review of Systems: The patient will open his eyes when his name is called. However he would not answer any questions. All systems reviewed & are unremarkable except as noted in HPI and below ROS unobtainable: Yes unobtainable due to medical condition and unobtainable due to mental status Neurologic: Reports confusion Psychiatric: Psychiatric: Reports confusion Exam Narrative: Patient is comfortable, NAD HEENT: eyes are clear and none icteric LUNGS:CTA HEART: RR S1S2 ABD: BS+, Soft and nontender Lower extremities: no edema SKIN: nonjaundiced Neuro: grossly intact. Objective Data Vital Signs Vital Signs: Vital Signs - 24 hr 07/05/25 16:00 07/05/25 16:00 07/05/25 16:00 Temperature 36.6 C Pulse Rate 100 100 83 Respiratory Rate 20 20 Blood Pressure 119/69 Pulse Oximetry 97 97 Oxygen Delivery Room Air Fraction of Inspired Oxygen 07/05/25 18:00 07/05/25 20:00 07/05/25 20:00 Temperature Pulse Rate 102 H 98 98 Respiratory Rate 20 Blood Pressure Pulse Oximetry 97 Oxygen Delivery Room Air Fraction of Inspired Oxygen 21 07/05/25 20:07 07/05/25 20:10 07/05/25 20:14 Temperature 36.7 C Pulse Rate 84 96 122 H Respiratory Rate 16 20 Blood Pressure 121/75 Pulse Oximetry 96 Oxygen Delivery Fraction of Inspired Oxygen 07/05/25 20:17 07/05/25 20:21 07/05/25 20:23 Temperature Pulse Rate 122 H 103 H 100 Respiratory Rate 20 20 Blood Pressure Pulse Oximetry 97 95 Oxygen Delivery Room Air Room Air Fraction of Inspired Oxygen 21 07/05/25 21:23 07/05/25 23:30 07/05/25 23:49 Temperature 37.0 C Pulse Rate 92 95 92 Respiratory Rate 18 18 Blood Pressure 114/68 Pulse Oximetry 97 97 Oxygen Delivery Room Air Fraction of Inspired Oxygen 21 07/05/25 23:49 07/06/25 01:39 07/06/25 01:48 Temperature Pulse Rate 92 94 99 Respiratory Rate 20 20 Blood Pressure Pulse Oximetry Oxygen Delivery Fraction of Inspired Oxygen 07/06/25 02:00 07/06/25 04:00 07/06/25 04:00 Temperature Pulse Rate 96 105 H 105 H Respiratory Rate 18 Blood Pressure Pulse Oximetry 96 Oxygen Delivery Room Air Fraction of Inspired Oxygen 21 07/06/25 04:08 07/06/25 06:00 07/06/25 08:00 Temperature 36.9 C 36.6 C Pulse Rate 107 H 96 96 Respiratory Rate 18 18 Blood Pressure 114/77 128/54 L Pulse Oximetry 96 96 Oxygen Delivery Fraction of Inspired Oxygen 07/06/25 08:00 07/06/25 08:00 07/06/25 08:24 Temperature Pulse Rate 113 H 107 H Respiratory Rate Blood Pressure Pulse Oximetry Oxygen Delivery Room Air Fraction of Inspired Oxygen 07/06/25 10:00 07/06/25 12:00 07/06/25 12:00 Temperature 36.6 C Pulse Rate 111 H 104 H Respiratory Rate 18 Blood Pressure 113/72 Pulse Oximetry 99 Oxygen Delivery Room Air Fraction of Inspired Oxygen 07/06/25 12:00 07/06/25 14:00 Temperature Pulse Rate 92 92 Respiratory Rate Blood Pressure Pulse Oximetry Oxygen Delivery Fraction of Inspired Oxygen Intake/Output Intake/Output: Intake & Output 07/03/25 07/04/25 07/05/25 07/06/25 23:59 23:59 23:59 23:59 Intake Total 17941.9 1110.4 1559.6 590 Output Total 15315 1800 1650 1400 Balance -2084.1 -689.6 -90.4 -810 Meds/Results Medications: Active Medications Generic Name Dose Route Start Last Admin Trade Name Freq PRN Reason Stop Dose Admin Acetaminophen 650 mg 06/28/25 01:26 Acetaminophen 650 Mg Suppository RECTAL Q6H PRN Mild Pain (1-3) or Fever Acetaminophen 650 mg 06/29/25 10:38 07/03/25 13:37 Acetaminophen 325 Mg Tablet PO 650 mg Q4H PRN Administration Mild Pain (1-3) or Fever Ceftriaxone Sodium 2 gm/ 100 mls @ 200 mls/hr 07/04/25 13:00 07/06/25 08:23 Sodium Chloride IVPB 200 mls/hr DAILY EUGENIO Administration Vancomycin HCl 1,250 mg in 250 mls @ 166.667 mls/hr 07/06/25 15:00 Vancomycin 1,250 Mg/Ns 250 Ml IVPB Q18H EUGENIO Ipratropium [place] 0.5 mg 07/06/25 11:47 Ipratropium Br 0.02% Inh Soln 0.5 Mg/2.5 Ml Vial INHALATION Q6HRT PRN Shortness Of Breath Or Wheezing Latanoprost 1 drop 06/28/25 21:00 07/05/25 20:10 Latanoprost 0.005% Op Soln 2.5 Ml Btl EACH EYE 1 drop HS EUGENIO Administration Levalbuterol HCl 0.63 mg 07/06/25 11:47 Levalbuterol Neb 1.25 Mg/3 Ml INHALATION Q6HRT PRN Shortness Of Breath Or Wheezing Ondansetron HCl 4 mg 06/28/25 13:33 06/30/25 12:00 Ondansetron Inj 4 Mg/2 Ml Vial IV PUSH 4 mg Q4H PRN Administration Nausea And Vomiting Sodium Chloride 10 ml 06/28/25 14:00 07/06/25 05:01 Central Line Flush IV PUSH 10 ml Q8HR EUGENIO Administration Sodium Chloride 10 ml 06/28/25 13:03 Central Line Flush IV PUSH PRN PRN with TPN bag changes Sodium Chloride 20 ml 06/28/25 13:03 07/02/25 04:29 Central Line Flush IV PUSH 20 ml PRN PRN Administration after blood draws Sotalol HCl 80 mg 07/05/25 10:25 07/06/25 08:24 Sotalol Hcl 80 Mg Tablet PO 80 mg Q12HR EUGENIO Administration Radiology Results: ITS Impressions Head CT 06/27/25 21:22 IMPRESSION: No acute intracranial hemorrhage or extra axial fluid collections. All CT scans at this facility are performed using low dose modulation techniques as appropriate to perform exam including the following: automated exposure control; use of iterative reconstruction technique; adjustment of the mA and/or kV according to patient size (this includes techniques or standardized protocols for targeted exams where dose is matched to indication/reason for exam). Chest/Abdomen/Pelvis CTA 06/27/25 22:00 IMPRESSION: 1. Hyperdense soft tissue of the bladder lumen, likely blood clot. Limon catheter present in the bladder lumen. 2: No evidence for aortic aneurysm or dissection. 3: Stenosis of the celiac axis, SMA and renal arteries. Carotid Doppler Study 06/28/25 20:17 IMPRESSION: 1. Less than 50% stenosis in the right internal carotid artery by sonographic criteria. 2. Less than 50% stenosis in the left internal carotid artery by sonographic criteria. Chest X-Ray 06/29/25 08:14 Impression: Mild CHF Pelvis Ultrasound 07/03/25 12:59 IMPRESSION: Probable large clot in the urinary bladder which is poorly distended and otherwise not well evaluated. Labs Labs: Laboratory Results - last 24 hr 07/06/25 07/06/25 04:54 13:05 WBC 16.6 H RBC 2.46 L Hgb 7.3 L Hct 23.1 L MCV 93.9 MCH 29.7 MCHC 31.6 L RDW 16.3 H Plt Count 176 MPV 10.3 Sodium 134 L Potassium 3.5 Chloride 105 Carbon Dioxide 26 Anion Gap 3 L BUN 26 H Creatinine 0.75 Estim Creat Clear Calc 59 Estimated GFR > 60 Glucose 73 Calcium 7.3 L Phosphorus 3.1 Magnesium 2.2 Albumin 2.3 L Vancomycin Trough 13.1 Quality VTE Prophylaxis VTE prophylaxis: mechanical ordered
[2025-07-06] MEDS: VANCOMYCIN 1,250 MG/NS 250 ML 1,250 MG/250 ML BAG 166.67 MG IVPB (15:14)
[2025-07-06] MEDS: LATANOPROST 0.005% OP SOLN 2.5 ML BTL 1 DROP EACH EYE (20:47)
[2025-07-07] VITALS (17 sets, daily range): BP systolic 115–135; BP diastolic 60–85; PULSE 76–106; RESP 16–22; TEMP 36.4–36.8; O2SAT 92–98
--- NOTE | 2025-07-07 | ECG_ITS ---
Test Date: 2025-07-07 00:04:34 Measurements Intervals [place] Rate: 98 P: 0 GA: 0 QRS: -13 QRSD: 76 T: -23 QT: 393 QTc: 503 Interpretive Statements ATRIAL FIBRILLATION LOW QRS VOLTAGE [QRS DEFLECTION < 0.5/1.0 mV IN LIMB/CHEST LEADS]+ NONSPECIFIC T-WAVE ABNORMALITY ABNORMAL ECG INTERPRETATION BASED ON A DEFAULT AGE OF 40 YEARS Compared to ECG 07/06/2025 11:04:10 NO SIGNIFICANT CHANGE Electronically Signed On 07-07-2025 13:08:55 [employer] by Raul Zepeda M.D.
[2025-07-07] MEDS: CENTRAL LINE FLUSH 10 ML IV PUSH ×2 (05:15→12:57)
[2025-07-07 05:31] LABS: Hematocrit 22.8 % (42.0-52.0); Hemoglobin 7.2 g/dL (14.0-18.0); Mean Corpuscular HGB Conc 31.6 g/dl (32-36); Mean Corpuscular Hemoglobin 29.8 pg (26-34); Mean Corpuscular Volume 94.2 fl (80-100); Platelet Count Result 206 k/mm3 (150-375); Red Blood Count 2.42 M/mm3 (4.6-6.20); White Blood Count 15.6 K/mm3 (4.5-10.0)
[2025-07-07 05:52] LABS: Albumin Level 2.2 g/dL (3.5-5.1); Anion Gap 0 mmol/L (4-12); Blood Urea Nitrogen 29 mg/dL (9-20); Calcium 7.2 mg/dL (8.4-10.2); Carbon Dioxide 27 mmol/L (22-30); Chloride 107 mmol/L (98-107); Estimated CRCL calculation 60 ml/min; Estimated Glomerular Filt Rate > 60; Glucose 82 mg/dL (65-110); Magnesium 2.1 mg/dL (1.6-2.3); Potassium 3.5 mmol/L (3.4-5.0); Sodium 134 mmol/L (137-145)
[2025-07-07] MEDS: SOTALOL HCL 80 MG TABLET PO ×2 (09:23→20:04)
[2025-07-07] MEDS: VANCOMYCIN 1,250 MG/NS 250 ML 1,250 MG/250 ML BAG 166.67 MG IVPB (09:23)
[2025-07-07] MEDS: cefTRIAXone 2 GM in SODIUM CHLORIDE 0.9% IV 100 ML 200 ML IVPB (09:23)
--- NOTE | 2025-07-07 11:52 | P.PNIM_ITS ---
Progress Note: A&P Assessment and Plan (1) Sepsis: Code(s): A41.9 - Sepsis, unspecified organism Status: Acute Assessment and Plan: -his white count was noted to be 20.6 which up trended to 37 K now on down tr end Blood culture negative to date. Urine culture with pansensitive E coli and Proteus mirabilis. UA had 51-100 RBC but 0-5 WBC -patient was empirically placed on Rocephin, doxycycline, and vancomycin. -daily CBC -the patient is lethargic and will only open his eyes when his name is called out on admission. -source unknown at this time. -may consider Infectious Disease consult. -lactic acid 4.3 on admission -continue with IV fluids -no open areas noted at this time. No skin tears, no abrasions, and no open areas. Patient remains on vancomycin and Rocephin. (2) Paroxysmal A-fib: Code(s): I48.0 - Paroxysmal atrial fibrillation Status: Acute Assessment and Plan: -the patient is in sinus tachycardia with occasional supraventricular premature complexes. -the patient had been on Eliquis in the past but recently had hematuria and was taken off of the blood thinner. -patient was given a dose of Cardizem in the emergency room. -continue with metoprolol Treated with IV fluids. Was also treated with IV diltiazem and was switched to sotalol by Cardiology. (3) Hypertension: Code(s): I10 - Essential (primary) hypertension Status: Acute Assessment and Plan: Blood pressure meds on hold Remains on sotalol He used to be on metoprolol and lisinopril at home (4) Sleep apnea: Qualifiers: Sleep apnea type: obstructive Qualified Code(s): G47.33 - Obstructive sleep apnea (adult) (pediatric) Code(s): G47.30 - Sleep apnea, unspecified Status: Acute Assessment and Plan: Continue with auto titrate for CPAP/BiPAP (5) Hyponatremia: Code(s): E87.1 - Hypo-osmolality and hyponatremia Status: Acute Assessment and Plan: -most likely related to dehydration. -continue with IV fluids. Monitor closely as to not cause fluid overload (last echo 07/21/2024 shows a normal left ventricular size with a preserved systolic contractility.) -check urine osmolality and urine sodium. 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 -Chest/Abdomen/Pelvis CTA 06/27/25 22:00 IMPRESSION: 1. Hyperdense soft tissue of the bladder lumen, likely blood clot. Limon catheter present in the bladder lumen. 2: No evidence for aortic aneurysm or dissection. 3: Stenosis of the celiac axis, SMA and renal arteries. May consider vascular consult outpatient (7) Encephalopathy: Code(s): G93.40 - Encephalopathy, unspecified Status: Acute Assessment and Plan: -could be due to infectious process. -could be related to the dehydration. -Head CT 06/27/25 21:22 IMPRESSION: No acute intracranial hemorrhage or extra axial fluid collections. -continue with neuro checks every 4 hours. -neurology consulted echo with EF 45-50%. [id number] MR mild TR moderate pulmonary hypertension mild aortic regurgitation. Carotid ultrasound with less than 50% stenosis bilateral internal chowdhury (8) Hypoxia: Code(s): R09.02 - Hypoxemia Status: Acute Assessment and Plan: -titrate oxygen to keep O2 saturations above 92%. -trend troponin -check an echo, last echo on 07/21/2024 was read as a following Summary 1. Definity contrast injected to improve visualization. 2. Normal left ventricular size with preserved systolic contractility. 3. Markedly dilated left atrium. 4. Mild MR. 5. Atrial fibrillation. (9) Hematuria: Code(s): R31.9 - Hematuria, unspecified Status: Acute Assessment and Plan: -consult urology -every 6 hour H&H -the patient has a history of prostate cancer. Is reported that the patient had a procedure within the last 2 weeks. -Limon catheter was placed in the emergency room. patient was started on CBI with resolutionOf hematuria CBI has been off Plan MOOKIE with urinary retention on Limon catheter resolution of MOOKIE Elevated troponin depressions on MOOKIE and significant anemia suspected type 2 History of prostate cancer status post Hypotension admission agreed related to sepsis Paroxysmal atrial fibrillation with rapid ventricular rate resume a nticoagulation when able. Right upper extremity swelling will do venous duplex Subjective Date/time seen: 07/07/25 11:52 Interval history: no overnight events. Patient is feeling better. The right arm is swollen. Has a PICC line in that place. Hematuria has resolved. Review of Systems Review of Systems: All systems reviewed & are unremarkable except as noted in HPI and below Exam Narrative: Patient is comfortable, NAD HEENT: eyes are clear and none icteric LUNGS:CTA HEART: RR S1S2 ABD: BS+, Soft and nontender Lower extremities: no edema Right upper extremity edematous SKIN: nonjaundiced Neuro: grossly intact. Limon in place with clear yellow urine in bag Objective Data Vital Signs Vital Signs: Vital Signs - 24 hr 07/06/25 12:00 07/06/25 12:00 07/06/25 12:00 Temperature 97.8 F Pulse Rate 104 H 92 Respiratory Rate 18 Blood Pressure 113/72 Pulse Oximetry 99 Oxygen Delivery Room Air Fraction of Inspired Oxygen 07/06/25 14:00 07/06/25 16:00 07/06/25 16:00 Temperature 98.2 F Pulse Rate 92 99 Respiratory Rate 20 Blood Pressure 99/60 L Pulse Oximetry 98 Oxygen Delivery Room Air Fraction of Inspired Oxygen 07/06/25 16:00 07/06/25 18:00 07/06/25 20:00 Temperature Pulse Rate 101 H 97 109 H Respiratory Rate 18 Blood Pressure Pulse Oximetry 97 Oxygen Delivery Room Air Fraction of Inspired Oxygen 21 07/06/25 20:00 07/06/25 20:24 07/06/25 20:47 Temperature 98.1 F Pulse Rate 109 H 95 92 Respiratory Rate 18 Blood Pressure 116/57 L Pulse Oximetry 97 Oxygen Delivery Fraction of Inspired Oxygen 07/06/25 22:00 07/06/25 23:39 07/06/25 23:39 Temperature Pulse Rate 92 90 90 Respiratory Rate 18 Blood Pressure Pulse Oximetry 97 Oxygen Delivery Room Air Fraction of Inspired Oxygen 07/07/25 00:00 07/07/25 02:00 07/07/25 04:00 Temperature 97.8 F Pulse Rate 86 98 102 H Respiratory Rate 16 18 Blood Pressure 117/60 Pulse Oximetry 97 97 Oxygen Delivery Room Air Fraction of Inspired Oxygen 21 07/07/25 04:00 07/07/25 04:22 07/07/25 06:00 Temperature 97.5 F L Pulse Rate 102 H 96 90 Respiratory Rate 18 Blood Pressure 117/65 Pulse Oximetry 97 Oxygen Delivery Fraction of Inspired Oxygen 07/07/25 08:00 07/07/25 09:23 Temperature 97.6 F Pulse Rate 91 98 Respiratory Rate 20 Blood Pressure 135/80 Pulse Oximetry 98 Oxygen Delivery Fraction of Inspired Oxygen Intake/Output Intake/Output: Intake & Output 07/04/25 07/05/25 07/06/25 07/07/25 23:59 23:59 23:59 23:59 Intake Total 1110.4 1559.6 1420 800 Output Total 1800 1650 2100 Balance -689.6 -90.4 -680 800 Meds/Results Medications: Active Medications Generic Name Dose Route Start Last Admin Trade Name Freq PRN Reason Stop Dose Admin Acetaminophen 650 mg 06/28/25 01:26 Acetaminophen 650 Mg Suppository RECTAL Q6H PRN Mild Pain (1-3) or Fever Acetaminophen 650 mg 06/29/25 10:38 07/03/25 13:37 Acetaminophen 325 Mg Tablet PO 650 mg Q4H PRN Administration Mild Pain (1-3) or Fever Ceftriaxone Sodium 2 gm/ 100 mls @ 200 mls/hr 07/04/25 13:00 07/07/25 09:23 Sodium Chloride IVPB 200 mls/hr DAILY EUGENIO Administration Vancomycin HCl 1,250 mg in 250 mls @ 166.667 mls/hr 07/06/25 15:00 07/07/25 09:23 Vancomycin 1,250 Mg/Ns 250 Ml IVPB 166.67 mls/hr Q18H EUGENIO Administration Ipratropium [place] 0.5 mg 07/06/25 11:47 Ipratropium Br 0.02% Inh Soln 0.5 Mg/2.5 Ml Vial INHALATION Q6HRT PRN Shortness Of Breath Or Wheezing Latanoprost 1 drop 06/28/25 21:00 07/06/25 20:47 Latanoprost 0.005% Op Soln 2.5 Ml Btl EACH EYE 1 drop HS EUGENIO Administration Levalbuterol HCl 0.63 mg 07/06/25 11:47 Levalbuterol Neb 1.25 Mg/3 Ml INHALATION Q6HRT PRN Shortness Of Breath Or Wheezing Ondansetron HCl 4 mg 06/28/25 13:33 06/30/25 12:00 Ondansetron Inj 4 Mg/2 Ml Vial IV PUSH 4 mg Q4H PRN Administration Nausea And Vomiting Sodium Chloride 10 ml 06/28/25 14:00 07/07/25 05:15 Central Line Flush IV PUSH 10 ml Q8HR EUGENIO Administration Sodium Chloride 10 ml 06/28/25 13:03 Central Line Flush IV PUSH PRN PRN with TPN bag changes Sodium Chloride 20 ml 06/28/25 13:03 07/02/25 04:29 Central Line Flush IV PUSH 20 ml PRN PRN Administration after blood draws Sotalol HCl 80 mg 07/05/25 10:25 07/07/25 09:23 Sotalol Hcl 80 Mg Tablet PO 80 mg Q12HR EUGENIO Administration Radiology Results: ITS Impressions Head CT 06/27/25 21:22 IMPRESSION: No acute intracranial hemorrhage or extra axial fluid collections. All CT scans at this facility are performed using low dose modulation js hniques as appropriate to perform exam including the following: automated exposure control; use of iterative reconstruction technique; adjustment of the mA and/or kV according to patient size (this includes techniques or standardized protocols for targeted exams where dose is matched to indication/reason for exam). Chest/Abdomen/Pelvis CTA 06/27/25 22:00 IMPRESSION: 1. Hyperdense soft tissue of the bladder lumen, likely blood clot. Limon catheter present in the bladder lumen. 2: No evidence for aortic aneurysm or dissection. 3: Stenosis of the celiac axis, SMA and renal arteries. Carotid Doppler Study 06/28/25 20:17 IMPRESSION: 1. Less than 50% stenosis in the right internal carotid artery by sonographic criteria. 2. Less than 50% stenosis in the left internal carotid artery by sonographic criteria. Chest X-Ray 06/29/25 08:14 Impression: Mild CHF Pelvis Ultrasound 07/03/25 12:59 IMPRESSION: Probable large clot in the urinary bladder which is poorly distended and otherwise not well evaluated. Labs Labs: Laboratory Results - last 24 hr 07/06/25 07/07/25 13:05 05:14 WBC 15.6 H RBC 2.42 L Hgb 7.2 L Hct 22.8 L MCV 94.2 MCH 29.8 MCHC 31.6 L RDW 16.3 H Plt Count 206 MPV 10.1 Sodium 134 L Potassium 3.5 Chloride 107 Carbon Dioxide 27 Anion Gap 0 L BUN 29 H Creatinine 0.65 L Estim Creat Clear Calc 60 Estimated GFR > 60 Glucose 82 Calcium 7.2 L Phosphorus 3.1 Magnesium 2.1 Albumin 2.2 L Vancomycin Trough 13.1
--- NOTE | 2025-07-07 13:03 | ECG_ITS ---
Test Date: 2025-07-07 13:23:23 Measurements Intervals [place] Rate: 97 P: 0 [place]: 0 QRS: 5 QRSD: 81 T: -28 QT: 377 QTc: 481 Interpretive Statements ATRIAL FIBRILLATION LOW QRS VOLTAGE [QRS DEFLECTION < 0.5/1.0 mV IN LIMB/CHEST LEADS] NONSPECIFIC T-WAVE ABNORMALITY ABNORMAL ECG Compared to ECG 07/07/2025 00:04:34 No significant changes Electronically Signed On 07-07-2025 13:30:08 REGISTERED NURSES by Raul Zepeda M.D.
[2025-07-07 15:09] LABS: Hematocrit 24.6 % (42.0-52.0); Hemoglobin 7.8 g/dL (14.0-18.0); Immature Granulocyte Percent A 3.8 % (0-0.5); Immature Platelet Fraction Pct 4.5 % (0.9-11.2); Lymphocytes Absolute Auto 0.87 K/mm3 (0.9-3.2); Mean Corpuscular HGB Conc 31.7 g/dl (32-36); Mean Corpuscular Hemoglobin 30.1 pg (26-34); Mean Corpuscular Volume 95.0 fl (80-100); Nucleated Red Blood Cells Absolute Auto 0.030 K/mm3 (0.0-0.012); Nucleated Red Blood Cells Perc 0.2 % (0.0-0.2); Platelet Count Result 203 k/mm3 (150-375); Red Blood Count 2.59 M/mm3 (4.6-6.20); White Blood Count 17.2 K/mm3 (4.5-10.0)
[2025-07-07 15:14] LABS: INR 1.3; Prothrombin Time 16.2 Seconds (11.1-14.7)
[2025-07-07 15:15] LABS: Partial Thromboplastin Time 25.1 Seconds (22.3-36.8)
[2025-07-07] MEDS: HEPARIN SOD/D5W 100 UNITS/ML 25,000 UNITS/250 ML BAG 12 UNITS IV CONT (15:23)
--- NOTE | 2025-07-07 15:30 | PC.NURSE ---
AMELIA VALENTINE TO NOT USE PICC LINE, DO NOT PULL OUT PICC LINE D/T DVT. FLUSH ORDERS DCD, DO NOT ORDER CATH FLOW FOR PICC LINE. ORDERS IN, LABELS APPLIED. WILL RE-US R ARM WHEN APPROPRIATE AFTER IV HEPARIN INFUSION HAS BEEN RUNNING. UROLOGY UPDATED ABOUT PATIENT STATUS. DO NOT REMOVE 3 WAY NOL[place]/CBI SET UP. MONITOR FOR HEMATURIA/ SIGNS OF BLEEDING. PATIENT AWARE AND VERBALIZES UNDERSTANDING.
--- NOTE | 2025-07-07 18:45 | P.PNUR_ITS ---
Progress Note: A&P Assessment and Plan (1) Gross hematuria: Code(s): R31.0 - Gross hematuria Status: Acute Assessment and Plan: - CBI is off with clear yellow urine in the bag. - Maintain Limon catheter. although the hematuria has been cleared for about 24hrs, he now has a RUE DVT and will be starting a heparin gtt. -maintain cbi on slow and if becomes red then titrate up accordingly. - consider formalin instillation next week if hematuria reoccurs. -cr stable (2) UTI (urinary tract infection): Qualifiers: Urinary tract infection type: acute cystitis Hematuria presence: with hematuria Qualified Code(s): N30.01 - Acute cystitis with hematuria Code(s): N39.0 - Urinary tract infection, site not specified Status: Acute Assessment and Plan: - Continue culture driven Abx - WBC is 17.2 which is up from 15.6 yesterday. (3) Urinary retention: Code(s): R33.9 - Retention of urine, unspecified Status: Inactive Subjective Subjective Date/Time Seen: 07/07/25 18:45 Interval history: no overnight events. Patient is feeling better. Hematuria has resolved since yesterday morning. Review of Systems Review of Systems: per HPI All systems reviewed & are unremarkable except as noted in HPI and below Exam Narrative: Const: General: comfortable and no acute distress Eyes: General: appearance normal, both eyes and all related structures Resp: Effort & Inspection: normal respiratory effort GI: Inspection: non-distended Auscultation: normal bowel sounds Urinary Catheter: Urinary Catheter: patent and draining and urine clear (yellow. cbi off since yesterday afternoon. ) Skin: Other: Pale Neuro: Speech: normal speech Objective Data Vital Signs Vital Signs: Vital Signs - 24 hr 07/06/25 20:00 07/06/25 20:00 07/06/25 20:24 Temperature 98.1 F Pulse Rate 109 H 109 H 95 Respiratory Rate 18 18 Blood Pressure 116/57 L Pulse Oximetry 97 97 Oxygen Delivery Room Air Fraction of Inspired Oxygen 07/06/25 20:47 07/06/25 22:00 07/06/25 23:39 Temperature Pulse Rate 92 92 90 Respiratory Rate 18 Blood Pressure Pulse Oximetry 97 Oxygen Delivery Room Air Fraction of Inspired Oxygen 07/06/25 23:39 07/07/25 00:00 07/07/25 02:00 Temperature 97.8 F Pulse Rate 90 86 98 Respiratory Rate 16 Blood Pressure 117/60 Pulse Oximetry 97 Oxygen Delivery Fraction of Inspired Oxygen 07/07/25 04:00 07/07/25 04:00 07/07/25 04:22 Temperature 97.5 F L Pulse Rate 102 H 102 H 96 Respiratory Rate 18 18 Blood Pressure 117/65 Pulse Oximetry 97 97 Oxygen Delivery Room Air Fraction of Inspired Oxygen 21 07/07/25 06:00 07/07/25 08:00 07/07/25 08:00 Temperature 97.6 F Pulse Rate 90 91 106 H Respiratory Rate 20 Blood Pressure 135/80 Pulse Oximetry 98 Oxygen Delivery Fraction of Inspired Oxygen 07/07/25 09:23 07/07/25 10:00 07/07/25 12:00 Temperature 98 F Pulse Rate 98 102 H 76 Respiratory Rate 18 Blood Pressure 118/60 Pulse Oximetry 98 Oxygen Delivery Fraction of Inspired Oxygen 07/07/25 12:00 07/07/25 13:51 07/07/25 16:00 Temperature Pulse Rate 96 106 H Respiratory Rate Blood Pressure Pulse Oximetry Oxygen Delivery Room Air Fraction of Inspired Oxygen 07/07/25 16:00 07/07/25 16:00 07/07/25 17:38 Temperature 98.3 F Pulse Rate 103 H 91 104 H Respiratory Rate 22 H Blood Pressure 124/85 Pulse Oximetry 97 Oxygen Delivery Fraction of Inspired Oxygen Intake/Output Intake/Output: Intake & Output 07/04/25 07/05/25 07/06/25 07/07/25 23:59 23:59 23:59 23:59 Intake Total 1110.4 1559.6 1420 1040 Output Total 1800 1650 2100 625 Balance -689.6 -90.4 -680 415 Meds/Results Medications: Active Medications Generic Name Dose Route Start Last Admin Trade Name Freq PRN Reason Stop Dose Admin Acetaminophen 650 mg 06/28/25 01:26 Acetaminophen 650 Mg Suppository RECTAL Q6H PRN Mild Pain (1-3) or Fever Acetaminophen 650 mg 06/29/25 10:38 07/03/25 13:37 Acetaminophen 325 Mg Tablet PO 650 mg Q4H PRN Administration Mild Pain (1-3) or Fever Heparin Sodium (Porcine) 5,000 units 07/07/25 14:27 Heparin Sodium 5,000 Units/Ml Vial IV PUSH PRN PRN aPTT less than 55 seconds Heparin Sodium (Porcine) 2,500 units 07/07/25 14:27 Heparin Sodium 5,000 Units/Ml Vial IV PUSH PRN PRN aPTT 55 - 70 seconds Ceftriaxone Sodium 2 gm/ 100 mls @ 200 mls/hr 07/04/25 13:00 07/07/25 09:23 Sodium Chloride IVPB 200 mls/hr DAILY EUGENIO Administration Vancomycin HCl 1,250 mg in 250 mls @ 166.667 mls/hr 07/06/25 15:00 07/07/25 09:23 Vancomycin 1,250 Mg/Ns 250 Ml IVPB 166.67 mls/hr Q18H EUGENIO Administration Heparin Sodium/Dextrose 25,000 units in 250 mls @ 12 mls/hr 07/07/25 14:30 07/07/25 15:23 Heparin Sodium/D5w 100 Units/Ml IV CONT 1,200 units/hr .[id number] EUGENIO 12 mls/hr Protocol Administration 1,200 UNITS/HR Ipratropium [place] 0.5 mg 07/06/25 11:47 Ipratropium Br 0.02% Inh Soln 0.5 Mg/2.5 Ml Vial INHALATION Q6HRT PRN Shortness Of Breath Or Wheezing Latanoprost 1 drop 06/28/25 21:00 07/06/25 20:47 Latanoprost 0.005% Op Soln 2.5 Ml Btl EACH EYE 1 drop HS EUGENIO Administration Levalbuterol HCl 0.63 mg 07/06/25 11:47 Levalbuterol Neb 1.25 Mg/3 Ml INHALATION Q6HRT PRN Shortness Of Breath Or Wheezing Ondansetron HCl 4 mg 06/28/25 13:33 06/30/25 12:00 Ondansetron Inj 4 Mg/2 Ml Vial IV PUSH 4 mg Q4H PRN Administration Nausea And Vomiting Sotalol HCl 80 mg 07/05/25 10:25 07/07/25 09:23 Sotalol Hcl 80 Mg Tablet PO 80 mg Q12HR EUGENIO Administration Radiology Results: ITS Impressions Head CT 06/27/25 21:22 IMPRESSION: No acute intracranial hemorrhage or extra axial fluid collections. All CT scans at this facility are performed using low dose modulation techniques as appropriate to perform exam including the following: automated exposure control; use of iterative reconstruction technique; adjustment of the mA and/or kV according to patient size (this includes techniques or standardized protocols for targeted exams where dose is matched to indication/reason for exam). Chest/Abdomen/Pelvis CTA 06/27/25 22:00 IMPRESSION: 1. Hyperdense soft tissue of the bladder lumen, likely blood clot. Limon catheter present in the bladder lumen. 2: No evidence for aortic aneurysm or dissection. 3: Stenosis of the celiac axis, SMA and renal arteries. Carotid Doppler Study 06/28/25 20:17 IMPRESSION: 1. Less than 50% stenosis in the right internal carotid artery by sonographic criteria. 2. Less than 50% stenosis in the left internal carotid artery by sonographic criteria. Chest X-Ray 06/29/25 08:14 Impression: Mild CHF Pelvis Ultrasound 07/03/25 12:59 IMPRESSION: Probable large clot in the urinary bladder which is poorly distended and otherwise not well evaluated. Venous Doppler Study 07/07/25 13:34 IMPRESSION: Positive for DVT, likely acute, as described. Superficial thrombophlebitis in the cephalic vein. I discussed this case with the ordering physician at the time of interpretation. Labs Labs: Laboratory Results - last 24 hr 07/07/25 07/07/25 07/07/25 05:14 14:47 14:59 WBC 15.6 H 17.2 H RBC 2.42 L 2.59 L Hgb 7.2 L 7.8 L Hct 22.8 L 24.6 L MCV 94.2 95.0 MCH 29.8 30.1 MCHC 31.6 L 31.7 L RDW 16.3 H 16.3 H Plt Count 206 203 MPV 10.1 10.8 H Immature Gran % (Auto) 3.8 H Neut % (Auto) 84.4 H Lymph % (Auto) 5.1 L [place] % (Auto) 4.8 Eos % (Auto) 1.6 Baso % (Auto) 0.3 Lymph # (Auto) 0.87 L [place] # (Auto) 0.8 H Eos # (Auto) 0.3 Baso # (Auto) 0.1 Abs Immat Gran (auto) 0.65 H Absolute Neuts (auto) 14.5 H Absolute Nucleated RBC 0.030 H Nucleated RBC % 0.2 % Immature Plt Fraction 4.5 PT 16.2 H INR 1.3 APTT 25.1 Sodium 134 L Potassium 3.5 Chloride 107 Carbon Dioxide 27 Anion Gap 0 L BUN 29 H Creatinine 0.65 L Estim Creat Clear Calc 60 Estimated GFR > 60 Glucose 82 Calcium 7.2 L Phosphorus 3.1 Magnesium 2.1 Albumin 2.2 L
[2025-07-07] MEDS: LATANOPROST 0.005% OP SOLN 2.5 ML BTL 1 DROP EACH EYE (20:05)
[2025-07-07 22:40] LABS: Partial Thromboplastin Time 49.3 Seconds (22.3-36.8)
[2025-07-08] VITALS (20 sets, daily range): BP systolic 121–131; BP diastolic 67–90; PULSE 79–104; RESP 16–20; TEMP 36.4–36.9; O2SAT 96–99
[2025-07-08] MEDS: VANCOMYCIN 1,250 MG/NS 250 ML 1,250 MG/250 ML BAG 166.67 MG IVPB ×2 (03:26→21:42)
[2025-07-08 05:34] LABS: Hematocrit 23.5 % (42.0-52.0); Hemoglobin 7.2 g/dL (14.0-18.0); Immature Granulocyte Percent A 4.1 % (0-0.5); Lymphocytes Absolute Auto 0.94 K/mm3 (0.9-3.2); Mean Corpuscular HGB Conc 30.6 g/dl (32-36); Mean Corpuscular Hemoglobin 29.6 pg (26-34); Mean Corpuscular Volume 96.7 fl (80-100); Nucleated Red Blood Cells Absolute Auto 0.020 K/mm3 (0.0-0.012); Nucleated Red Blood Cells Perc 0.1 % (0.0-0.2); Platelet Count Result 234 k/mm3 (150-375); Red Blood Count 2.43 M/mm3 (4.6-6.20); White Blood Count 14.0 K/mm3 (4.5-10.0)
[2025-07-08 05:59] LABS: Alanine Aminotransferase 24 U/L (6-50); Albumin Level 2.2 g/dL (3.5-5.1); Alkaline Phosphatase 80 U/L (38-126); Anion Gap 3 mmol/L (4-12); Aspartate Amino Transferase 28 U/L (17-59); Bilirubin,Total 0.4 mg/dL (0.2-1.3); Blood Urea Nitrogen 22 mg/dL (9-20); Calcium 7.4 mg/dL (8.4-10.2); Carbon Dioxide 23 mmol/L (22-30); Chloride 108 mmol/L (98-107); Estimated CRCL calculation 68 ml/min; Estimated Glomerular Filt Rate > 60; Glucose 88 mg/dL (65-110); Magnesium 2.0 mg/dL (1.6-2.3); Potassium 3.6 mmol/L (3.4-5.0); Sodium 134 mmol/L (137-145); Total Protein 4.9 g/dL (6.3-8.2)
[2025-07-08 06:06] LABS: Partial Thromboplastin Time > 200.0 Seconds (22.3-36.8)
[2025-07-08] MEDS: SOTALOL HCL 80 MG TABLET PO ×2 (08:56→20:46)
[2025-07-08] MEDS: cefTRIAXone 2 GM in SODIUM CHLORIDE 0.9% IV 100 ML 200 ML IVPB (08:56)
[2025-07-08 09:11] LABS: IFOB Positive Control Positive; Immunochemical Fecal Occult Bl Positive (N)
--- NOTE | 2025-07-08 09:52 | PM.PNCARD ---
Progress Note: A&P Assessment and Plan (1) Atrial fibrillation with rapid ventricular response: Code(s): I48.91 - Unspecified atrial fibrillation Status: Acute Plan Assessment and Plan- 1. Minimal troponin elevation likely type 2 PR. Conservative management. 2. Atrial fibrillation. On telemetry, patient is in atrial fibrillation with controlled ventricular response. Patient was on apixaban at home which has been put on hold due to anemia. He has been initiated on sotalol by the prior cardiology team. Although he has been re-initiated on anticoagulation with unfractionated heparin in the setting of right upper extremity DVT, if patient's candidacy for chronic anticoagulation remains uncertain, then would avoid plans for chemically cardioverting patient with sotalol. Recent QTc within acceptable range. Monitor renal function. If patient does not remain good candidate for anticoagulation, then he can be considered for left atrial appendage closure as an outpatient. 3. Continue telemetry monitoring. 4. Management of medical problems as per primary team. 5. Follow-up with primary mechanical service technician after hospital discharge. Subjective Date/time seen: 07/08/25 09:52 Interval history: 07/08/2025- patient is lying down in the bed. His and some are present patient's bedside. Patient denies any ongoing symptoms of chest pain or shortness of breath. On telemetry, he remains in atrial fibrillation with controlled ventricular response. Patient had right arm swelling. Venous duplex reportedly showed occlusive to near occlusive thrombus in the subclavian and axillary veins, hypoechoic and expansive. He has been initiated on unfractionated heparin. Exam Narrative: PHYSICAL EXAMINATION: GENERAL: Pale appearing elderly male, alert, no acute process MENTAL STATUS: affect appropriate to mood EYES: Extraocular movements intact, pallor EARS: External ears appear normal, hearing grossly normal NOSE: Normal and patent, no discharge MOUTH: Mucous membranes moist, tongue normal NECK: Supple, no JVD CHEST: decreased respiratory effort HEART: normal rate, irregular rhythm ABDOMEN: Soft, nontender NEUROLOGICAL: Alert, oriented, normal speech, no gross motor deficits MUSCULOSKELETAL: No major deformity, no amputation EXTREMITIES: no pedal edema, right arm mildly swollen SKIN: no rash on the exposed area, no cyanosis PSYCHIATRIC: Normal mood, appropriate affect Objective Data Vital Signs Vital Signs: Vital Signs - 24 hr 07/07/25 10:00 07/07/25 12:00 07/07/25 12:00 Temperature 36.6 C Pulse Rate 102 H 76 96 Respiratory Rate 18 Blood Pressure 118/60 Pulse Oximetry 98 Oxygen Delivery 07/07/25 13:51 07/07/25 16:00 07/07/25 16:00 Temperature Pulse Rate 106 H 103 H Respiratory Rate Blood Pressure Pulse Oximetry Oxygen Delivery Room Air 07/07/25 16:00 07/07/25 17:38 07/07/25 19:46 Temperature 36.8 C 36.4 C Pulse Rate 91 104 H 96 Respiratory Rate 22 H 20 Blood Pressure 124/85 115/78 Pulse Oximetry 97 92 Oxygen Delivery 07/07/25 20:00 07/07/25 20:00 07/07/25 20:04 Temperature Pulse Rate 95 101 H Respiratory Rate Blood Pressure Pulse Oximetry Oxygen Delivery Room Air 07/07/25 22:00 07/07/25 23:37 07/08/25 00:00 Temperature 36.5 C Pulse Rate 90 97 Respiratory Rate 20 Blood Pressure 119/67 Pulse Oximetry 98 Oxygen Delivery Room Air 07/08/25 00:00 07/08/25 02:00 07/08/25 04:00 Temperature 36.4 C Pulse Rate 103 H 104 H 79 Respiratory Rate 20 Blood Pressure 125/67 Pulse Oximetry 98 Oxygen Delivery 07/08/25 04:00 07/08/25 04:00 07/08/25 06:00 Temperature Pulse Rate 83 87 Respiratory Rate Blood Pressure Pulse Oximetry Oxygen Delivery Room Air 07/08/25 07:56 07/08/25 08:56 Temperature 36.7 C Pulse Rate 97 103 H Respiratory Rate 20 Blood Pressure 121/76 Pulse Oximetry 99 Oxygen Delivery Intake/Output Intake/Output: Intake & Output 07/05/25 07/06/25 07/07/25 07/08/25 23:59 23:59 23:59 23:59 Intake Total 1559.6 1420 1728.8 510.7 Output Total 1650 2100 625 825 Balance -90.4 -680 1103.8 -314.3 Meds/Results Medications: Active Medications Generic Name Dose Route Start Last Admin Trade Name Freq PRN Reason Stop Dose Admin Acetaminophen 650 mg 06/28/25 01:26 Acetaminophen 650 Mg Suppository RECTAL Q6H PRN Mild Pain (1-3) or Fever Acetaminophen 650 mg 06/29/25 10:38 07/03/25 13:37 Acetaminophen 325 Mg Tablet PO 650 mg Q4H PRN Administration Mild Pain (1-3) or Fever Heparin Sodium (Porcine) 5,000 units 07/07/25 14:27 07/07/25 22:47 Heparin Sodium 5,000 Units/Ml Vial IV PUSH 5,000 units PRN PRN Administration aPTT less than 55 seconds Heparin Sodium (Porcine) 2,500 units 07/07/25 14:27 Heparin Sodium 5,000 Units/Ml Vial IV PUSH PRN PRN aPTT 55 - 70 seconds Ceftriaxone Sodium 2 gm/ 100 mls @ 200 mls/hr 07/04/25 13:00 07/08/25 08:56 Sodium Chloride IVPB 200 mls/hr DAILY EUGENIO Administration Vancomycin HCl 1,250 mg in 250 mls @ 166.667 mls/hr 07/06/25 15:00 07/08/25 04:56 Vancomycin 1,250 Mg/Ns 250 Ml IVPB Infused Q18H EUGENIO Infusion Heparin Sodium/Dextrose 25,000 units in 250 mls @ 13 mls/hr 07/08/25 07:20 Heparin Sodium/D5w 100 Units/Ml IV CONT .[id number] [facility] Protocol Ipratropium [place] 0.5 mg 07/06/25 11:47 Ipratropium Br 0.02% Inh Soln 0.5 Mg/2.5 Ml Vial INHALATION Q6HRT PRN Shortness Of Breath Or Wheezing Latanoprost 1 drop 06/28/25 21:00 07/07/25 20:05 Latanoprost 0.005% Op Soln 2.5 Ml Btl EACH EYE 1 drop HS EUGENIO Administration Levalbuterol HCl 0.63 mg 07/06/25 11:47 Levalbuterol Neb 1.25 Mg/3 Ml INHALATION Q6HRT PRN Shortness Of Breath Or Wheezing Ondansetron HCl 4 mg 06/28/25 13:33 06/30/25 12:00 Ondansetron Inj 4 Mg/2 Ml Vial IV PUSH 4 mg Q4H PRN Administration Nausea And Vomiting Sotalol HCl 80 mg 07/05/25 10:25 07/08/25 08:56 Sotalol Hcl 80 Mg Tablet PO 80 mg Q12HR EUGENIO Administration Radiology Results: ITS Impressions Head CT 06/27/25 21:22 IMPRESSION: No acute intracranial hemorrhage or extra axial fluid collections. All CT scans at this facility are performed using low dose modulation techniques as appropriate to perform exam including the following: automated exposure control; use of iterative reconstruction technique; adjustment of the mA and/or kV according to patient size (this includes techniques or standardized protocols for targeted exams where dose is matched to indication/reason for exam). Chest/Abdomen/Pelvis CTA 06/27/25 22:00 IMPRESSION: 1. Hyperdense soft tissue of the bladder lumen, likely blood clot. Limon catheter present in the bladder lumen. 2: No evidence for aortic aneurysm or dissection. 3: Stenosis of the celiac axis, SMA and renal arteries. Carotid Doppler Study 06/28/25 20:17 IMPRESSION: 1. Less than 50% stenosis in the right internal carotid artery by sonographic criteria. 2. Less than 50% stenosis in the left internal carotid artery by sonographic criteria. Chest X-Ray 06/29/25 08:14 Impression: Mild CHF Pelvis Ultrasound 07/03/25 12:59 IMPRESSION: Probable large clot in the urinary bladder which is poorly distended and otherwise not well evaluated. Venous Doppler Study 07/07/25 13:34 IMPRESSION: Positive for DVT, likely acute, as described. Superficial thrombophlebitis in the cephalic vein. I discussed this case with the ordering physician at the time of interpretation. Labs Labs: Laboratory Results - last 24 hr 07/07/25 07/07/25 07/07/25 14:47 14:59 22:05 WBC 17.2 H RBC 2.59 L Hgb 7.8 L Hct 24.6 L MCV 95.0 MCH 30.1 MCHC 31.7 L RDW 16.3 H Plt Count 203 MPV 10.8 H Immature Gran % (Auto) 3.8 H Neut % (Auto) 84.4 H Lymph % (Auto) 5.1 L [place] % (Auto) 4.8 Eos % (Auto) 1.6 Baso % (Auto) 0.3 Lymph # (Auto) 0.87 L [place] # (Auto) 0.8 H Eos # (Auto) 0.3 Baso # (Auto) 0.1 Abs Immat Gran (auto) 0.65 H Absolute Neuts (auto) 14.5 H Absolute Nucleated RBC 0.030 H Nucleated RBC % 0.2 % Immature Plt Fraction 4.5 PT 16.2 H INR 1.3 APTT 25.1 49.3 H Sodium Potassium Chloride Carbon Dioxide Anion Gap BUN Creatinine Estim Creat Clear Calc Estimated GFR Glucose Calcium Phosphorus Magnesium Total Bilirubin AST ALT Alkaline Phosphatase Total Protein Albumin Stl Occult Blood (IFOB) 07/08/25 07/08/25 05:28 08:51 WBC 14.0 H RBC 2.43 L Hgb 7.2 L Hct 23.5 L MCV 96.7 MCH 29.6 MCHC 30.6 L RDW 16.3 H Plt Count 234 MPV 9.9 Immature Gran % (Auto) 4.1 H Neut % (Auto) 81.1 H Lymph % (Auto) 6.7 L [place] % (Auto) 4.9 Eos % (Auto) 2.7 Baso % (Auto) 0.5 Lymph # (Auto) 0.94 [place] # (Auto) 0.7 H Eos # (Auto) 0.4 H Baso # (Auto) 0.1 Abs Immat Gran (auto) 0.57 H Absolute Neuts (auto) 11.3 H Absolute Nucleated RBC 0.020 H Nucleated RBC % 0.1 % Immature Plt Fraction PT INR APTT > 200.0 H* Sodium 134 L Potassium 3.6 Chloride 108 H Carbon Dioxide 23 Anion Gap 3 L BUN 22 H Creatinine 0.56 L Estim Creat Clear Calc 68 Estimated GFR > 60 Glucose 88 Calcium 7.4 L Phosphorus 3.2 Magnesium 2.0 Total Bilirubin 0.4 AST 28 ALT 24 Alkaline Phosphatase 80 Total Protein 4.9 L Albumin 2.2 L Stl Occult Blood (IFOB) Positive H
--- NOTE | 2025-07-08 10:08 | WPDUROPN2 ---
Progress Note: A&P Assessment and Plan (1) Gross hematuria: Code(s): R31.0 - Gross hematuria Status: Acute Assessment and Plan: - Titrate CBI as needed to keep Limon output clear pink or sweatband perforator. If Limon output is clear then may clamp CBI, but do not discontinue CBI in case he needs to resumed on it - Maintain Limon catheter for now. Will monitor output now that he is on heparin gtt for RUE DVT - Consider formalin instillation next week if significant degree of hematuria recurs - Labs reviewed. Hgb stable. SCr stable. (2) Urinary retention: Code(s): R33.9 - Retention of urine, unspecified Status: Inactive Subjective Subjective Date/Time Seen: 07/08/25 10:08 Interval history: Patient sitting up comfortably in chair. Limon clear yellow output. and son at bedside. He denies any interval issues with Limon drainage since being started on heparin drip for RUE DVT. Review of Systems Review of Systems: All systems reviewed & are unremarkable except as noted in HPI and below Exam Const: General: comfortable, no acute distress and uncomfortable Eyes: General: appearance normal, both eyes and all related structures Resp: Effort & Inspection: normal respiratory effort GI: Inspection: non-distended Urinary Catheter: Urinary Catheter: patent and draining and urine clear (yellow. cbi off since yesterday afternoon. ) Neuro: Speech: normal speech Objective Data Vital Signs Vital Signs: Vital Signs - 24 hr 07/07/25 12:00 07/07/25 12:00 07/07/25 13:51 Temperature 36.6 C Pulse Rate 76 96 106 H Respiratory Rate 18 Blood Pressure 118/60 Pulse Oximetry 98 Oxygen Delivery Fraction of Inspired Oxygen 07/07/25 16:00 07/07/25 16:00 07/07/25 16:00 Temperature 36.8 C Pulse Rate 103 H 91 Respiratory Rate 22 H Blood Pressure 124/85 Pulse Oximetry 97 Oxygen Delivery Room Air Fraction of Inspired Oxygen 07/07/25 17:38 07/07/25 19:46 07/07/25 20:00 Temperature 36.4 C Pulse Rate 104 H 96 Respiratory Rate 20 Blood Pressure 115/78 Pulse Oximetry 92 Oxygen Delivery Room Air Fraction of Inspired Oxygen 07/07/25 20:00 07/07/25 20:04 07/07/25 22:00 Temperature Pulse Rate 95 101 H 90 Respiratory Rate Blood Pressure Pulse Oximetry Oxygen Delivery Fraction of Inspired Oxygen 07/07/25 23:37 07/08/25 00:00 07/08/25 00:00 Temperature 36.5 C Pulse Rate 97 103 H Respiratory Rate 20 Blood Pressure 119/67 Pulse Oximetry 98 Oxygen Delivery Room Air Fraction of Inspired Oxygen 07/08/25 02:00 07/08/25 04:00 07/08/25 04:00 Temperature 36.4 C Pulse Rate 104 H 79 Respiratory Rate 20 Blood Pressure 125/67 Pulse Oximetry 98 Oxygen Delivery Room Air Fraction of Inspired Oxygen 07/08/25 04:00 07/08/25 06:00 07/08/25 07:56 Temperature 36.7 C Pulse Rate 83 87 97 Respiratory Rate 20 Blood Pressure 121/76 Pulse Oximetry 99 Oxygen Delivery Fraction of Inspired Oxygen 07/08/25 08:00 07/08/25 08:56 Temperature Pulse Rate 103 H Respiratory Rate Blood Pressure Pulse Oximetry Oxygen Delivery Room Air Fraction of Inspired Oxygen 21 Intake/Output Intake/Output: Intake & Output 07/05/25 07/06/25 07/07/25 07/08/25 23:59 23:59 23:59 23:59 Intake Total 1559.6 1420 1728.8 510.7 Output Total 1650 2100 625 825 Balance -90.4 -680 1103.8 -314.3 Meds/Results Medications: Active Medications Generic Name Dose Route Start Last Admin Trade Name Freq PRN Reason Stop Dose Admin Acetaminophen 650 mg 06/28/25 01:26 Acetaminophen 650 Mg Suppository RECTAL Q6H PRN Mild Pain (1-3) or Fever Acetaminophen 650 mg 06/29/25 10:38 07/03/25 13:37 Acetaminophen 325 Mg Tablet PO 650 mg Q4H PRN Administration Mild Pain (1-3) or Fever Heparin Sodium (Porcine) 5,000 units 07/07/25 14:27 07/07/25 22:47 Heparin Sodium 5,000 Units/Ml Vial IV PUSH 5,000 units PRN PRN Administration aPTT less than 55 seconds Heparin Sodium (Porcine) 2,500 units 07/07/25 14:27 Heparin Sodium 5,000 Units/Ml Vial IV PUSH PRN PRN aPTT 55 - 70 seconds Ceftriaxone Sodium 2 gm/ 100 mls @ 200 mls/hr 07/04/25 13:00 07/08/25 08:56 Sodium Chloride IVPB 200 mls/hr DAILY EUGENIO Administration Vancomycin HCl 1,250 mg in 250 mls @ 166.667 mls/hr 07/06/25 15:00 07/08/25 04:56 Vancomycin 1,250 Mg/Ns 250 Ml IVPB Infused Q18H EUGENIO Infusion Heparin Sodium/Dextrose 25,000 units in 250 mls @ 13 mls/hr 07/08/25 07:20 Heparin Sodium/D5w 100 Units/Ml IV CONT .[id number] [facility] Protocol Ipratropium [place] 0.5 mg 07/06/25 11:47 Ipratropium Br 0.02% Inh Soln 0.5 Mg/2.5 Ml Vial INHALATION Q6HRT PRN Shortness Of Breath Or Wheezing Latanoprost 1 drop 06/28/25 21:00 07/07/25 20:05 Latanoprost 0.005% Op Soln 2.5 Ml Btl EACH EYE 1 drop HS EUGENIO Administration Levalbuterol HCl 0.63 mg 07/06/25 11:47 Levalbuterol Neb 1.25 Mg/3 Ml INHALATION Q6HRT PRN Shortness Of Breath Or Wheezing Ondansetron HCl 4 mg 06/28/25 13:33 06/30/25 12:00 Ondansetron Inj 4 Mg/2 Ml Vial IV PUSH 4 mg Q4H PRN Administration Nausea And Vomiting Sotalol HCl 80 mg 07/05/25 10:25 07/08/25 08:56 Sotalol Hcl 80 Mg Tablet PO 80 mg Q12HR EUGENIO Administration Radiology Results: ITS Impressions Head CT 06/27/25 21:22 IMPRESSION: No acute intracranial hemorrhage or extra axial fluid collections. All CT scans at this facility are performed using low dose modulation techniques as appropriate to perform exam including the following: automated exposure control; use of iterative reconstruction technique; adjustment of the mA and/or kV according to patient size (this includes techniques or standardized protocols for targeted exams where dose is matched to indication/reason for exam). Chest/Abdomen/Pelvis CTA 06/27/25 22:00 IMPRESSION: 1. Hyperdense soft tissue of the bladder lumen, likely blood clot. Limon catheter present in the bladder lumen. 2: No evidence for aortic aneurysm or dissection. 3: Stenosis of the celiac axis, SMA and renal arteries. Carotid Doppler Study 06/28/25 20:17 IMPRESSION: 1. Less than 50% stenosis in the right internal carotid artery by sonographic criteria. 2. Less than 50% stenosis in the left internal carotid artery by sonographic criteria. Chest X-Ray 06/29/25 08:14 Impression: Mild CHF Pelvis Ultrasound 07/03/25 12:59 IMPRESSION: Probable large clot in the urinary bladder which is poorly distended and otherwise not well evaluated. Venous Doppler Study 07/07/25 13:34 IMPRESSION: Positive for DVT, likely acute, as described. Superficial thrombophlebitis in the cephalic vein. I discussed this case with the ordering physician at the time of interpretation. Labs Labs: Laboratory Results - last 24 hr 07/07/25 07/07/25 07/07/25 14:47 14:59 22:05 WBC 17.2 H RBC 2.59 L Hgb 7.8 L Hct 24.6 L MCV 95.0 MCH 30.1 MCHC 31.7 L RDW 16.3 H Plt Count 203 MPV 10.8 H Immature Gran % (Auto) 3.8 H Neut % (Auto) 84.4 H Lymph % (Auto) 5.1 L [place] % (Auto) 4.8 Eos % (Auto) 1.6 Baso % (Auto) 0.3 Lymph # (Auto) 0.87 L [place] # (Auto) 0.8 H Eos # (Auto) 0.3 Baso # (Auto) 0.1 Abs Immat Gran (auto) 0.65 H Absolute Neuts (auto) 14.5 H Absolute Nucleated RBC 0.030 H Nucleated RBC % 0.2 % Immature Plt Fraction 4.5 PT 16.2 H INR 1.3 APTT 25.1 49.3 H Sodium Potassium Chloride Carbon Dioxide Anion Gap BUN Creatinine Estim Creat Clear Calc Estimated GFR Glucose Calcium Phosphorus Magnesium Total Bilirubin AST ALT Alkaline Phosphatase Total Protein Albumin Stl Occult Blood (IFOB) 07/08/25 07/08/25 05:28 08:51 WBC 14.0 H RBC 2.43 L Hgb 7.2 L Hct 23.5 L MCV 96.7 MCH 29.6 MCHC 30.6 L RDW 16.3 H Plt Count 234 MPV 9.9 Immature Gran % (Auto) 4.1 H Neut % (Auto) 81.1 H Lymph % (Auto) 6.7 L [place] % (Auto) 4.9 Eos % (Auto) 2.7 Baso % (Auto) 0.5 Lymph # (Auto) 0.94 [place] # (Auto) 0.7 H Eos # (Auto) 0.4 H Baso # (Auto) 0.1 Abs Immat Gran (auto) 0.57 H Absolute Neuts (auto) 11.3 H Absolute Nucleated RBC 0.020 H Nucleated RBC % 0.1 % Immature Plt Fraction PT INR APTT > 200.0 H* Sodium 134 L Potassium 3.6 Chloride 108 H Carbon Dioxide 23 Anion Gap 3 L BUN 22 H Creatinine 0.56 L Estim Creat Clear Calc 68 Estimated GFR > 60 Glucose 88 Calcium 7.4 L Phosphorus 3.2 Magnesium 2.0 Total Bilirubin 0.4 AST 28 ALT 24 Alkaline Phosphatase 80 Total Protein 4.9 L Albumin 2.2 L Stl Occult Blood (IFOB) Positive H
[2025-07-08] MEDS: HEPARIN SOD/D5W 100 UNITS/ML 25,000 UNITS/250 ML BAG 13 UNITS IV CONT (11:44)
--- NOTE | 2025-07-08 12:00 | P.PNIM_ITS ---
Progress Note: A&P Assessment and Plan (1) Sepsis: Code(s): A41.9 - Sepsis, unspecified organism Status: Acute Assessment and Plan: -his white count was noted to be 20.6 which up trended to 37 K now on down tr end Blood culture negative to date. Urine culture with pansensitive E coli and Proteus mirabilis. UA had 51-100 RBC but 0-5 WBC -patient was empirically placed on Rocephin, doxycycline, and vancomycin. -daily CBC -the patient is lethargic and will only open his eyes when his name is called out on admission. -source unknown at this time. -may consider Infectious Disease consult. -lactic acid 4.3 on admission -continue with IV fluids -no open areas noted at this time. No skin tears, no abrasions, and no open areas. Patient remains on vancomycin and Rocephin. Leukocytosis continues to improve (2) Paroxysmal A-fib: Code(s): I48.0 - Paroxysmal atrial fibrillation Status: Acute Assessment and Plan: -the patient is in sinus tachycardia with occasional supraventricular premature complexes. -the patient had been on Eliquis in the past but recently had hematuria and was taken off of the blood thinner. -patient was given a dose of Cardizem in the emergency room. -continue with metoprolol Treated with IV fluids. Was also treated with IV diltiazem and was switched to sotalol by Cardiology. Currently rate controlled (3) Hypertension: Code(s): I10 - Essential (primary) hypertension Status: Acute Assessment and Plan: Blood pressure meds on hold Remains on sotalol He used to be on metoprolol and lisinopril at home (4) Sleep apnea: Qualifiers: Sleep apnea type: obstructive Qualified Code(s): G47.33 - Obstructive sleep apnea (adult) (pediatric) Code(s): G47.30 - Sleep apnea, unspecified Status: Acute Assessment and Plan: Continue with auto titrate for CPAP/BiPAP (5) Hyponatremia: Code(s): E87.1 - Hypo-osmolality and hyponatremia Status: Acute Assessment and Plan: -most likely related to dehydration. -continue with IV fluids. Monitor closely as to not cause fluid overload (last echo 07/21/2024 shows a normal left ventricular size with a preserved systolic contractility.) -check urine osmolality and urine sodium. 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 -Chest/Abdomen/Pelvis CTA 06/27/25 22:00 IMPRESSION: 1. Hyperdense soft tissue of the bladder lumen, likely blood clot. Limon catheter present in the bladder lumen. 2: No evidence for aortic aneurysm or dissection. 3: Stenosis of the celiac axis, SMA and renal arteries. May consider vascular consult outpatient (7) Encephalopathy: Code(s): G93.40 - Encephalopathy, unspecified Status: Acute Assessment and Plan: -could be due to infectious process. -could be related to the dehydration. -Head CT 06/27/25 21:22 IMPRESSION: No acute intracranial hemorrhage or extra axial fluid collections. -continue with neuro checks every 4 hours. -neurology consulted echo with EF 45-50%. [id number] MR mild TR moderate pulmonary hypertension mild aortic regurgitation. Carotid ultrasound with less than 50% stenosis bilateral internal chowdhury (8) Hypoxia: Code(s): R09.02 - Hypoxemia Status: Acute Assessment and Plan: -titrate oxygen to keep O2 saturations above 92%. -trend troponin -check an echo, last echo on 07/21/2024 was read as a following Summary 1. [place] contrast injected to improve visualization. 2. Normal left ventricular size with preserved systolic contractility. 3. Markedly dilated left atrium. 4. Mild MR. 5. Atrial fibrillation. (9) Hematuria: Code(s): R31.9 - Hematuria, unspecified Status: Acute Assessment and Plan: -consult urology -every 6 hour H&H -the patient has a history of prostate cancer. Is reported that the patient had a procedure within the last 2 weeks. -Limon catheter was placed in the emergency room. patient was started on CBI with resolutionOf hematuria CBI has been off monitor for further hematuria Plan MOOKIE with urinary retention on Limon catheter resolution of MOOKIE Elevated troponin depressions on MOOKIE and significant anemia suspected type 2 History of prostate cancer status post Hypotension admission agreed related to sepsis Paroxysmal atrial fibrillation with rapid ventricular rate resume anticoagulation when able. Right upper extremity swelling noted to have subclavian and axillary acute DVT and hence started back on heparin drip. After heparinizing colin for 24-48 hour will plan to remove the PICC line as PICC line is nonfunctional at this point. Continue to monitor H&H with ongoing anticoagulation. Subjective Date/time seen: 07/08/25 12:00 Interval history: right upper extremity DVT noted started on IV heparin. Right arm swelling has improved. No hematuria noted. Discussed with nursing staff. Review of Systems Review of Systems: All systems reviewed & are unremarkable except as noted in HPI and below Exam Narrative: Patient is comfortable, NAD HEENT: eyes are clear and none icteric LUNGS:CTA HEART: RR S1S2 ABD: BS+, Soft and nontender Lower extremities: no edema Right upper extremity edematous SKIN: nonjaundiced Neuro: grossly intact. Limon in place with clear yellow urine in bag Objective Data Vital Signs Vital Signs: Vital Signs - 24 hr 07/07/25 13:51 07/07/25 16:00 07/07/25 16:00 Temperature Pulse Rate 106 H 103 H Respiratory Rate Blood Pressure Pulse Oximetry Oxygen Delivery Room Air Fraction of Inspired Oxygen 07/07/25 16:00 07/07/25 17:38 07/07/25 19:46 Temperature 98.3 F 97.6 F Pulse Rate 91 104 H 96 Respiratory Rate 22 H 20 Blood Pressure 124/85 115/78 Pulse Oximetry 97 92 Oxygen Delivery Fraction of Inspired Oxygen 07/07/25 20:00 07/07/25 20:00 07/07/25 20:04 Temperature Pulse Rate 95 101 H Respiratory Rate Blood Pressure Pulse Oximetry Oxygen Delivery Room Air Fraction of Inspired Oxygen 07/07/25 22:00 07/07/25 23:37 07/08/25 00:00 Temperature 97.7 F Pulse Rate 90 97 Respiratory Rate 20 Blood Pressure 119/67 Pulse Oximetry 98 Oxygen Delivery Room Air Fraction of Inspired Oxygen 07/08/25 00:00 07/08/25 02:00 07/08/25 04:00 Temperature 97.6 F Pulse Rate 103 H 104 H 79 Respiratory Rate 20 Blood Pressure 125/67 Pulse Oximetry 98 Oxygen Delivery Fraction of Inspired Oxygen 07/08/25 04:00 07/08/25 04:00 07/08/25 06:00 Temperature Pulse Rate 83 87 Respiratory Rate Blood Pressure Pulse Oximetry Oxygen Delivery Room Air Fraction of Inspired Oxygen 07/08/25 07:56 07/08/25 08:00 07/08/25 08:00 Temperature 98.0 F Pulse Rate 97 102 H Respiratory Rate 20 Blood Pressure 121/76 Pulse Oximetry 99 Oxygen Delivery Room Air Fraction of Inspired Oxygen 21 07/08/25 08:56 07/08/25 10:00 07/08/25 11:29 Temperature 97.7 F Pulse Rate 103 H 94 96 Respiratory Rate 20 Blood Pressure 122/71 Pulse Oximetry 96 Oxygen Delivery Fraction of Inspired Oxygen Intake/Output Intake/Output: Intake & Output 07/05/25 07/06/25 07/07/25 07/08/25 23:59 23:59 23:59 23:59 Intake Total 1559.6 1420 1728.8 510.7 Output Total 1650 2100 625 825 Balance -90.4 -680 1103.8 -314.3 Meds/Results Medications: Active Medications Generic Name Dose Route Start Last Admin Trade Name Freq PRN Reason Stop Dose Admin Acetaminophen 650 mg 06/28/25 01:26 Acetaminophen 650 Mg Suppository RECTAL Q6H PRN Mild Pain (1-3) or Fever Acetaminophen 650 mg 06/29/25 10:38 07/03/25 13:37 Acetaminophen 325 Mg Tablet PO 650 mg Q4H PRN Administration Mild Pain (1-3) or Fever Heparin Sodium (Porcine) 5,000 units 07/07/25 14:27 07/07/25 22:47 Heparin Sodium 5,000 Units/Ml Vial IV PUSH 5,000 units PRN PRN Administration aPTT less than 55 seconds Heparin Sodium (Porcine) 2,500 units 07/07/25 14:27 Heparin Sodium 5,000 Units/Ml Vial IV PUSH PRN PRN aPTT 55 - 70 seconds Ceftriaxone Sodium 2 gm/ 100 mls @ 200 mls/hr 07/04/25 13:00 07/08/25 08:56 Sodium Chloride IVPB 200 mls/hr DAILY EUGENIO Administration Vancomycin HCl 1,250 mg in 250 mls @ 166.667 mls/hr 07/06/25 15:00 07/08/25 04:56 Vancomycin 1,250 Mg/Ns 250 Ml IVPB Infused Q18H EUGENIO Infusion Heparin Sodium/Dextrose 25,000 units in 250 mls @ 13 mls/hr 07/08/25 11:45 07/08/25 11:44 Heparin Sodium/D5w 100 Units/Ml IV CONT 1,300 units/hr .[id number] EUGENIO 13 mls/hr Protocol Administration 1,300 UNITS/HR Ipratropium [place] 0.5 mg 07/06/25 11:47 Ipratropium Br 0.02% Inh Soln 0.5 Mg/2.5 Ml Vial INHALATION Q6HRT PRN Shortness Of Breath Or Wheezing Latanoprost 1 drop 06/28/25 21:00 07/07/25 20:05 Latanoprost 0.005% Op Soln 2.5 Ml Btl EACH EYE 1 drop HS EUGENIO Administration Levalbuterol HCl 0.63 mg 07/06/25 11:47 Levalbuterol Neb 1.25 Mg/3 Ml INHALATION Q6HRT PRN Shortness Of Breath Or Wheezing Ondansetron HCl 4 mg 06/28/25 13:33 06/30/25 12:00 Ondansetron Inj 4 Mg/2 Ml Vial IV PUSH 4 mg Q4H PRN Administration Nausea And Vomiting Sotalol HCl 80 mg 07/05/25 10:25 07/08/25 08:56 Sotalol Hcl 80 Mg Tablet PO 80 mg Q12HR EUGENIO Administration Radiology Results: ITS Impressions Head CT 06/27/25 21:22 IMPRESSION: No acute intracranial hemorrhage or extra axial fluid collections. All CT scans at this facility are performed using low dose modulation techniques as appropriate to perform exam including the following: automated exposure control; use of iterative reconstruction technique; adjustment of the mA and/or kV according to patient size (this includes techniques or standardized protocols for targeted exams where dose is matched to indication/reason for exam). Chest/Abdomen/Pelvis CTA 06/27/25 22:00 IMPRESSION: 1. Hyperdense soft tissue of the bladder lumen, likely blood clot. Limon catheter present in the bladder lumen. 2: No evidence for aortic aneurysm or dissection. 3: Stenosis of the celiac axis, SMA and renal arteries. Carotid Doppler Study 06/28/25 20:17 IMPRESSION: 1. Less than 50% stenosis in the right internal carotid artery by sonographic cr iteria. 2. Less than 50% stenosis in the left internal carotid artery by sonographic criteria. Chest X-Ray 06/29/25 08:14 Impression: Mild CHF Pelvis Ultrasound 07/03/25 12:59 IMPRESSION: Probable large clot in the urinary bladder which is poorly distended and otherwise not well evaluated. Venous Doppler Study 07/07/25 13:34 IMPRESSION: Positive for DVT, likely acute, as described. Superficial thrombophlebitis in the cephalic vein. I discussed this case with the ordering physician at the time of interpretation. Labs Labs: Laboratory Results - last 24 hr 07/07/25 07/07/25 07/07/25 14:47 14:59 22:05 WBC 17.2 H RBC 2.59 L Hgb 7.8 L Hct 24.6 L MCV 95.0 MCH 30.1 MCHC 31.7 L RDW 16.3 H Plt Count 203 MPV 10.8 H Immature Gran % (Auto) 3.8 H Neut % (Auto) 84.4 H Lymph % (Auto) 5.1 L [place] % (Auto) 4.8 Eos % (Auto) 1.6 Baso % (Auto) 0.3 Lymph # (Auto) 0.87 L [place] # (Auto) 0.8 H Eos # (Auto) 0.3 Baso # (Auto) 0.1 Abs Immat Gran (auto) 0.65 H Absolute Neuts (auto) 14.5 H Absolute Nucleated RBC 0.030 H Nucleated RBC % 0.2 % Immature Plt Fraction 4.5 PT 16.2 H INR 1.3 APTT 25.1 49.3 H Sodium Potassium Chloride Carbon Dioxide Anion Gap BUN Creatinine Estim Creat Clear Calc Estimated GFR Glucose Calcium Phosphorus Magnesium Total Bilirubin AST ALT Alkaline Phosphatase Total Protein Albumin Stl Occult Blood (IFOB) 07/08/25 07/08/25 05:28 08:51 WBC 14.0 H RBC 2.43 L Hgb 7.2 L Hct 23.5 L MCV 96.7 MCH 29.6 MCHC 30.6 L RDW 16.3 H Plt Count 234 MPV 9.9 Immature Gran % (Auto) 4.1 H Neut % (Auto) 81.1 H Lymph % (Auto) 6.7 L [place] % (Auto) 4.9 Eos % (Auto) 2.7 Baso % (Auto) 0.5 Lymph # (Auto) 0.94 [place] # (Auto) 0.7 H Eos # (Auto) 0.4 H Baso # (Auto) 0.1 Abs Immat Gran (auto) 0.57 H Absolute Neuts (auto) 11.3 H Absolute Nucleated RBC 0.020 H Nucleated RBC % 0.1 % Immature Plt Fraction PT INR APTT > 200.0 H* Sodium 134 L Potassium 3.6 Chloride 108 H Carbon Dioxide 23 Anion Gap 3 L BUN 22 H Creatinine 0.56 L Estim Creat Clear Calc 68 Estimated GFR > 60 Glucose 88 Calcium 7.4 L Phosphorus 3.2 Magnesium 2.0 Total Bilirubin 0.4 AST 28 ALT 24 Alkaline Phosphatase 80 Total Protein 4.9 L Albumin 2.2 L Stl Occult Blood (IFOB) Positive H
[2025-07-08 13:56] LABS: Partial Thromboplastin Time 197.9 Seconds (22.3-36.8)
[2025-07-08] MEDS: HEPARIN SOD/D5W 100 UNITS/ML 25,000 UNITS/250 ML BAG 11 UNITS IV CONT (15:15)
[2025-07-08] MEDS: PANTOPRAZOLE 40 MG TABLET PO (20:46)
[2025-07-08] MEDS: LATANOPROST 0.005% OP SOLN 2.5 ML BTL 1 DROP EACH EYE (20:47)
[2025-07-08 21:18] LABS: Partial Thromboplastin Time 112.5 Seconds (22.3-36.8)
[2025-07-09] VITALS (17 sets, daily range): BP systolic 122–141; BP diastolic 63–81; PULSE 50–104; RESP 16–20; TEMP 36.4–36.7; O2SAT 98–100
[2025-07-09 04:44] LABS: Hematocrit 23.0 % (42.0-52.0); Hemoglobin 7.1 g/dL (14.0-18.0); Immature Granulocyte Percent A 3.0 % (0-0.5); Lymphocytes Absolute Auto 0.89 K/mm3 (0.9-3.2); Mean Corpuscular HGB Conc 30.9 g/dl (32-36); Mean Corpuscular Hemoglobin 29.2 pg (26-34); Mean Corpuscular Volume 94.7 fl (80-100); Nucleated Red Blood Cells Absolute Auto 0.000 K/mm3 (0.0-0.012); Nucleated Red Blood Cells Perc 0.0 % (0.0-0.2); Platelet Count Result 278 k/mm3 (150-375); Red Blood Count 2.43 M/mm3 (4.6-6.20); White Blood Count 12.1 K/mm3 (4.5-10.0)
[2025-07-09 04:57] LABS: Partial Thromboplastin Time 68.4 Seconds (22.3-36.8)
[2025-07-09 05:13] LABS: Alanine Aminotransferase 28 U/L (6-50); Albumin Level 2.3 g/dL (3.5-5.1); Alkaline Phosphatase 79 U/L (38-126); Anion Gap 2 mmol/L (4-12); Aspartate Amino Transferase 37 U/L (17-59); Bilirubin,Total 0.5 mg/dL (0.2-1.3); Blood Urea Nitrogen 17 mg/dL (9-20); Calcium 7.3 mg/dL (8.4-10.2); Carbon Dioxide 25 mmol/L (22-30); Chloride 106 mmol/L (98-107); Estimated CRCL calculation 68 ml/min; Estimated Glomerular Filt Rate > 60; Glucose 84 mg/dL (65-110); Magnesium 1.9 mg/dL (1.6-2.3); Potassium 3.5 mmol/L (3.4-5.0); Sodium 133 mmol/L (137-145); Total Protein 5.1 g/dL (6.3-8.2)
[2025-07-09 09:06] LABS: IFOB Positive Control Positive; Immunochemical Fecal Occult Bl Positive (N)
[2025-07-09] MEDS: PANTOPRAZOLE 40 MG TABLET PO ×2 (09:23→21:07)
[2025-07-09] MEDS: cefTRIAXone 2 GM in SODIUM CHLORIDE 0.9% IV 100 ML 200 ML IVPB (09:23)
[2025-07-09] MEDS: SOTALOL HCL 80 MG TABLET PO ×2 (09:23→21:07)
--- NOTE | 2025-07-09 10:25 | P.PNUR_ITS ---
Progress Note: A&P Assessment and Plan (1) Gross hematuria: Code(s): R31.0 - Gross hematuria Status: Acute Assessment and Plan: - Limon output has been clear and yellow for a few days now. Keep CBI clamped. May resume CBI only if needed, in which case titrate CBI as needed to keep Limon output clear pink or hydraulic spinner. - Maintain Limno catheter for now. Continue to monitor UOP now that he is on heparin gtt for RUE DVT - Hgb reviewed, low at 7.1 but stable. Transfuse pRBCs p.r.n. if Hgb <7, will defer to primary - If significant hematuria recurs, will consider instillation of formalin this upcoming week. However, doubt this will need to be done given patient's urine clear now for a few days - Remainder of management per primary (2) Urinary retention: Code(s): R33.9 - Retention of urine, unspecified Status: Inactive Subjective Subjective Date/Time Seen: 07/09/25 10:25 Interval history: NAEO. Patient denies any issues with Limon catheter drainage or needing manual irrigation of his catheter. He happily reports that his urine has been clear and yellow. Exam Narrative: General: Alert, no acute distress Head: Normocephalic, atraumatic Eyes: Extraocular movements intact Neck: No JVD, trachea midline Respiratory: Symmetric chest rise, nonlabored breathing on room air CV: Normal rate, adequate peripheral perfusion Abdomen: Soft, nontender, nondistended : Limon in place without CBI and draining clear light yellow urine without clots Skin: Globally pale. Warm/dry Extremities: No peripheral edema, no cyanosis Neuro: No focal deficits Psych: Answers questions appropriately, appropriate mood Objective Data Vital Signs Vital Signs: Vital Signs - 24 hr 07/08/25 11:29 07/08/25 12:00 07/08/25 12:00 Temperature 36.5 C Pulse Rate 96 88 Respiratory Rate 20 Blood Pressure 122/71 Pulse Oximetry 96 Oxygen Delivery Room Air 07/08/25 14:00 07/08/25 15:42 07/08/25 16:00 Temperature 36.9 C Pulse Rate 88 94 84 Respiratory Rate 18 Blood Pressure 125/90 Pulse Oximetry 99 Oxygen Delivery 07/08/25 16:00 07/08/25 18:00 07/08/25 20:00 Temperature Pulse Rate 91 Respiratory Rate Blood Pressure Pulse Oximetry Oxygen Delivery Room Air Room Air 07/08/25 20:00 07/08/25 20:14 07/08/25 20:46 Temperature 36.7 C Pulse Rate 89 98 95 Respiratory Rate 16 Blood Pressure 125/80 Pulse Oximetry 97 Oxygen Delivery 07/08/25 21:50 07/08/25 22:00 07/08/25 23:15 Temperature 36.5 C Pulse Rate 94 103 H Respiratory Rate 16 Blood Pressure 131/90 Pulse Oximetry 98 99 Oxygen Delivery Room Air 07/08/25 23:48 07/09/25 00:00 07/09/25 02:00 Temperature Pulse Rate 90 88 Respiratory Rate Blood Pressure Pulse Oximetry Oxygen Delivery Room Air 07/09/25 03:35 07/09/25 04:00 07/09/25 04:00 Temperature 36.4 C L Pulse Rate 80 104 H Respiratory Rate 16 Blood Pressure 124/63 Pulse Oximetry 98 Oxygen Delivery Room Air 07/09/25 06:00 07/09/25 07:58 07/09/25 09:23 Temperature 36.7 C Pulse Rate 87 98 90 Respiratory Rate 16 Blood Pressure 141/81 H Pulse Oximetry 99 Oxygen Delivery Intake/Output Intake/Output: Intake & Output 07/06/25 07/07/25 07/08/25 07/09/25 23:59 23:59 23:59 23:59 Intake Total 1420 1728.8 1717.9 417.8 Output Total 2100 625 1900 1500 Balance -680 1103.8 -182.1 -1082.2 Meds/Results Medications: Active Medications Generic Name Dose Route Start Last Admin Trade Name Zackq PRN Reason Stop Dose Admin Acetaminophen 650 mg 06/28/25 01:26 Acetaminophen 650 Mg Suppository RECTAL Q6H PRN Mild Pain (1-3) or Fever Acetaminophen 650 mg 06/29/25 10:38 07/03/25 13:37 Acetaminophen 325 Mg Tablet PO 650 mg Q4H PRN Administration Mild Pain (1-3) or Fever Heparin Sodium (Porcine) 5,000 units 07/07/25 14:27 07/07/25 22:47 Heparin Sodium 5,000 Units/Ml Vial IV PUSH 5,000 units PRN PRN Administration aPTT less than 55 seconds Heparin Sodium (Porcine) 2,500 units 07/07/25 14:27 07/09/25 05:11 Heparin Sodium 5,000 Units/Ml Vial IV PUSH 2,500 units PRN PRN Administration aPTT 55 - 70 seconds Ceftriaxone Sodium 2 gm/ 100 mls @ 200 mls/hr 07/04/25 13:00 07/09/25 09:23 Sodium Chloride IVPB 200 mls/hr DAILY EUGENIO Administration Heparin Sodium/Dextrose 25,000 units in 250 mls @ 11 mls/hr 07/08/25 15:15 07/09/25 05:11 Heparin Sodium/D5w 100 Units/Ml IV CONT 1,100 units/hr .[id number] EUGENIO 11 mls/hr Protocol Titration 1,100 UNITS/HR Vancomycin HCl 1,250 mg in 250 mls @ 166.667 mls/hr 07/08/25 22:00 07/08/25 23:12 Vancomycin 1,250 Mg/Ns 250 Ml IVPB Infused Q18H EUGENIO Infusion Ipratropium [place] 0.5 mg 07/06/25 11:47 Ipratropium Br 0.02% Inh Soln 0.5 Mg/2.5 Ml Vial INHALATION Q6HRT PRN Shortness Of Breath Or Wheezing Latanoprost 1 drop 06/28/25 21:00 07/08/25 20:47 Latanoprost 0.005% Op Soln 2.5 Ml Btl EACH EYE 1 drop HS EUGENIO Administration Levalbuterol HCl 0.63 mg 07/06/25 11:47 Levalbuterol Neb 1.25 Mg/3 Ml INHALATION Q6HRT PRN Shortness Of Breath Or Wheezing Ondansetron HCl 4 mg 06/28/25 13:33 06/30/25 12:00 Ondansetron Inj 4 Mg/2 Ml Vial IV PUSH 4 mg Q4H PRN Administration Nausea And Vomiting Pantoprazole Sodium 40 mg 07/08/25 21:00 07/09/25 09:23 Pantoprazole 40 Mg Tablet PO 40 mg Q12HR EUGENIO Administration Sotalol HCl 80 mg 07/05/25 10:25 07/09/25 09:23 Sotalol Hcl 80 Mg Tablet PO 80 mg Q12HR EUGENIO Administration Radiology Results: ITS Impressions Head CT 06/27/25 21:22 IMPRESSION: No acute intracranial hemorrhage or extra axial fluid collections. All CT scans at this facility are performed using low dose modulation techniques as appropriate to perform exam including the following: automated exposure control; use of iterative reconstruction technique; adjustment of the mA and/or kV according to patient size (this includes techniques or standardized protocols for targeted exams where dose is matched to indication/reason for exam). Chest/Abdomen/Pelvis CTA 06/27/25 22:00 IMPRESSION: 1. Hyperdense soft tissue of the bladder lumen, likely blood clot. Limon catheter present in the bladder lumen. 2: No evidence for aortic aneurysm or dissection. 3: Stenosis of the celiac axis, SMA and renal arteries. Carotid Doppler Study 06/28/25 20:17 IMPRESSION: 1. Less than 50% stenosis in the right internal carotid artery by sonographic criteria. 2. Less than 50% stenosis in the left internal carotid artery by sonographic criteria. Chest X-Ray 06/29/25 08:14 Impression: Mild CHF Pelvis Ultrasound 07/03/25 12:59 IMPRESSION: Probable large clot in the urinary bladder which is poorly distended and otherwise not well evaluated. Venous Doppler Study 07/07/25 13:34 IMPRESSION: Positive for DVT, likely acute, as described. Superficial thrombophlebitis in the cephalic vein. I discussed this case with the ordering physician at the time of interpretation. Labs Labs: Laboratory Results - last 24 hr 07/08/25 07/08/25 07/08/25 13:29 13:49 20:45 WBC RBC Hgb Hct MCV MCH MCHC RDW Plt Count MPV Immature Gran % (Auto) Neut % (Auto) Lymph % (Auto) [place] % (Auto) Eos % (Auto) Baso % (Auto) Lymph # (Auto) [place] # (Auto) Eos # (Auto) Baso # (Auto) Abs Immat Gran (auto) Absolute Neuts (auto) Absolute Nucleated RBC Nucleated RBC % APTT 197.9 H* 112.5 H Sodium Potassium Chloride Carbon Dioxide Anion Gap BUN Creatinine Estim Creat Clear Calc Estimated GFR Glucose Calcium Phosphorus Magnesium Total Bilirubin AST ALT Alkaline Phosphatase Total Protein Albumin Stl Occult Blood Comment Cancelled Stl Occult Blood (ICT) Cancelled Stl Occult Blood (IFOB) Occult Blood (ICT) #2 Cancelled Occult Blood (ICT) #3 Cancelled Vancomycin Trough 14.6 07/09/25 07/09/25 03:58 08:17 WBC 12.1 H RBC 2.43 L Hgb 7.1 L Hct 23.0 L MCV 94.7 MCH 29.2 MCHC 30.9 L RDW 16.2 H Plt Count 278 MPV 10.1 Immature Gran % (Auto) 3.0 H Neut % (Auto) 80.6 H Lymph % (Auto) 7.3 L [place] % (Auto) 5.8 Eos % (Auto) 2.8 Baso % (Auto) 0.5 Lymph # (Auto) 0.89 L [place] # (Auto) 0.7 H Eos # (Auto) 0.3 Baso # (Auto) 0.1 Abs Immat Gran (auto) 0.36 H Absolute Neuts (auto) 9.8 H Absolute Nucleated RBC 0.000 Nucleated RBC % 0.0 APTT 68.4 H Sodium 133 L Potassium 3.5 Chloride 106 Carbon Dioxide 25 Anion Gap 2 L BUN 17 Creatinine 0.56 L Estim Creat Clear Calc 68 Estimated GFR > 60 Glucose 84 Calcium 7.3 L Phosphorus 3.1 Magnesium 1.9 Total Bilirubin 0.5 AST 37 ALT 28 Alkaline Phosphatase 79 Total Protein 5.1 L Albumin 2.3 L Stl Occult Blood Comment Stl Occult Blood (ICT) Stl Occult Blood (IFOB) Positive H Occult Blood (ICT) #2 Occult Blood (ICT) #3 Vancomycin Trough
[2025-07-09 13:25] LABS: Partial Thromboplastin Time > 200.0 Seconds (22.3-36.8)
--- NOTE | 2025-07-09 13:29 | P.PNIM_ITS ---
Progress Note: A&P Assessment and Plan (1) Sepsis: Code(s): A41.9 - Sepsis, unspecified organism Status: Acute Assessment and Plan: -his white count was noted to be 20.6 which up trended to 37 K now on down tr end Blood culture negative to date. Urine culture with pansensitive E coli and Proteus mirabilis. UA had 51-100 RBC but 0-5 WBC -patient was empirically placed on Rocephin, doxycycline, and vancomycin. -daily CBC -the patient is lethargic and will only open his eyes when his name is called out on admission. -source unknown at this time. -may consider Infectious Disease consult. -lactic acid 4.3 on admission -continue with IV fluids -no open areas noted at this time. No skin tears, no abrasions, and no open areas. Patient remains on vancomycin and Rocephin. Leukocytosis continues to improve (2) Paroxysmal A-fib: Code(s): I48.0 - Paroxysmal atrial fibrillation Status: Acute Assessment and Plan: -the patient is in sinus tachycardia with occasional supraventricular premature complexes. -the patient had been on Eliquis in the past but recently had hematuria and was taken off of the blood thinner. -patient was given a dose of Cardizem in the emergency room. -continue with metoprolol Treated with IV fluids. Was also treated with IV diltiazem and was switched to sotalol by Cardiology. Currently rate controlled and switched to sinus rhythm (3) Hypertension: Code(s): I10 - Essential (primary) hypertension Status: Acute Assessment and Plan: Blood pressure meds on hold Remains on sotalol He used to be on metoprolol and lisinopril at home (4) Sleep apnea: Qualifiers: Sleep apnea type: obstructive Qualified Code(s): G47.33 - Obstructive sleep apnea (adult) (pediatric) Code(s): G47.30 - Sleep apnea, unspecified Status: Acute Assessment and Plan: Continue with auto titrate for CPAP/BiPAP (5) Hyponatremia: Code(s): E87.1 - Hypo-osmolality and hyponatremia Status: Acute Assessment and Plan: -most likely related to dehydration. -continue with IV fluids. 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 -Chest/Abdomen/Pelvis CTA 06/27/25 22:00 IMPRESSION: 1. Hyperdense soft tissue of the bladder lumen, likely blood clot. Limon catheter present in the bladder lumen. 2: No evidence for aortic aneurysm or dissection. 3: Stenosis of the celiac axis, SMA and renal arteries. May consider vascular consult outpatient (7) Encephalopathy: Code(s): G93.40 - Encephalopathy, unspecified Status: Acute Assessment and Plan: -could be due to infectious process. -could be related to the dehydration. -Head CT 06/27/25 21:22 IMPRESSION: No acute intracranial hemorrhage or extra axial fluid collections. -continue with neuro checks every 4 hours. -neurology consulted echo with EF 45-50%. [id number] MR mild TR moderate pulmonary hypertension mild aortic regurgitation. Carotid ultrasound with less than 50% stenosis bilateral internal chowdhury (8) Hypoxia: Code(s): R09.02 - Hypoxemia Status: Acute Assessment and Plan: -titrate oxygen to keep O2 saturations above 92%. -trend troponin -check an echo, last echo on 07/21/2024 was read as a following Summary 1. Definity contrast injected to improve visualization. 2. Normal left ventricular size with preserved systolic contractility. 3. Markedly dilated left atrium. 4. Mild MR. 5. Atrial fibrillation. (9) Hematuria: Code(s): R31.9 - Hematuria, unspecified Status: Acute Assessment and Plan: -consult urology -every 6 hour H&H -the patient has a history of prostate cancer. Is reported that the patient had a procedure within the last 2 weeks. -Limon catheter was placed in the emergency room. patient was started on CBI with resolutionOf hematuria CBI has been off monitor for further hematuria Plan MOOKIE with urinary retention on Limon catheter resolution of MOOKIE Elevated troponin depressions on MOOKIE and significant anemia suspected type 2 History of prostate cancer status post Hypotension admission agreed related to sepsis Paroxysmal atrial fibrillation with rapid ventricular rate resume anticoagulation when able. Right upper extremity swelling noted to have subclavian and axillary acute DVT and hence started back on heparin drip. After heparinizing colin for 24-48 hour will plan to remove the PICC line as PICC line is nonfunctional at this point. Plan to DC PICC line in a.m. Anemia with FOBT positive GI consulted. Placed on PPI Continue to monitor H&H with ongoing anticoagulation. Subjective Date/time seen: 07/09/25 13:29 Interval history: No new complaints. Maintains on slow CBI. No further hematuria. Remains on IV heparin. Review of Systems Review of Systems: All systems reviewed & are unremarkable except as noted in HPI and below Exam Narrative: Patient is comfortable, NAD HEENT: eyes are clear and none icteric LUNGS:CTA HEART: RR S1S2 ABD: BS+, Soft and nontender Lower extremities: no edema Right upper extremity edematous SKIN: nonjaundiced Neuro: grossly intact. Limon in place with clear yellow urine in bag Objective Data Vital Signs Vital Signs: Vital Signs - 24 hr 07/08/25 14:00 07/08/25 15:42 07/08/25 16:00 Temperature 98.5 F Pulse Rate 88 94 84 Respiratory Rate 18 Blood Pressure 125/90 Pulse Oximetry 99 Oxygen Delivery 07/08/25 16:00 07/08/25 18:00 07/08/25 20:00 Temperature Pulse Rate 91 Respiratory Rate Blood Pressure Pulse Oximetry Oxygen Delivery Room Air Room Air 07/08/25 20:00 07/08/25 20:14 07/08/25 20:46 Temperature 98.1 F Pulse Rate 89 98 95 Respiratory Rate 16 Blood Pressure 125/80 Pulse Oximetry 97 Oxygen Delivery 07/08/25 21:50 07/08/25 22:00 07/08/25 23:15 Temperature 97.7 F Pulse Rate 94 103 H Respiratory Rate 16 Blood Pressure 131/90 Pulse Oximetry 98 99 Oxygen Delivery Room Air 07/08/25 23:48 07/09/25 00:00 07/09/25 02:00 Temperature Pulse Rate 90 88 Respiratory Rate Blood Pressure Pulse Oximetry Oxygen Delivery Room Air 07/09/25 03:35 07/09/25 04:00 07/09/25 04:00 Temperature 97.5 F L Pulse Rate 80 104 H Respiratory Rate 16 Blood Pressure 124/63 Pulse Oximetry 98 Oxygen Delivery Room Air 07/09/25 06:00 07/09/25 07:58 07/09/25 08:00 Temperature 98.1 F Pulse Rate 87 98 Respiratory Rate 16 Blood Pressure 141/81 H Pulse Oximetry 99 Oxygen Delivery Room Air 07/09/25 08:00 07/09/25 09:23 07/09/25 10:00 Temperature Pulse Rate 104 H 90 82 Respiratory Rate Blood Pressure Pulse Oximetry Oxygen Delivery 07/09/25 11:55 Temperature 97.6 F Pulse Rate 50 L Respiratory Rate 16 Blood Pressure 122/63 Pulse Oximetry 100 Oxygen Delivery Intake/Output Intake/Output: Intake & Output 07/06/25 07/07/25 07/08/25 07/09/25 23:59 23:59 23:59 23:59 Intake Total 1420 1728.8 1717.9 637.8 Output Total 2100 625 1900 1500 Balance -680 1103.8 -182.1 -862.2 Meds/Results Medications: Active Medications Generic Name Dose Route Start Last Admin Trade Name Freq PRN Reason Stop Dose Admin Acetaminophen 650 mg 06/28/25 01:26 Acetaminophen 650 Mg Suppository RECTAL Q6H PRN Mild Pain (1-3) or Fever Acetaminophen 650 mg 06/29/25 10:38 07/03/25 13:37 Acetaminophen 325 Mg Tablet PO 650 mg Q4H PRN Administration Mild Pain (1-3) or Fever Heparin Sodium (Porcine) 5,000 units 07/07/25 14:27 07/07/25 22:47 Heparin Sodium 5,000 Units/Ml Vial IV PUSH 5,000 units PRN PRN Administration aPTT less than 55 seconds Heparin Sodium (Porcine) 2,500 units 07/07/25 14:27 07/09/25 05:11 Heparin Sodium 5,000 Units/Ml Vial IV PUSH 2,500 units PRN PRN Administration aPTT 55 - 70 seconds Ceftriaxone Sodium 2 gm/ 100 mls @ 200 mls/hr 07/04/25 13:00 07/09/25 10:49 Sodium Chloride IVPB Infused DAILY [facility] Infusion Heparin Sodium/Dextrose 25,000 units in 250 mls @ 11 mls/hr 07/08/25 15:15 07/09/25 05:11 Heparin Sodium/D5w 100 Units/Ml IV CONT 1,100 units/hr .[id number] [facility] 11 mls/hr Protocol Titration 1,100 UNITS/HR Vancomycin HCl 1,250 mg in 250 mls @ 166.667 mls/hr 07/08/25 22:00 07/08/25 23:12 Vancomycin 1,250 Mg/Ns 250 Ml IVPB Infused Q18H EUGENIO Infusion Ipratropium [place] 0.5 mg 07/06/25 11:47 Ipratropium Br 0.02% Inh Soln 0.5 Mg/2.5 Ml Vial INHALATION Q6HRT PRN Shortness Of Breath Or Wheezing Latanoprost 1 drop 06/28/25 21:00 07/08/25 20:47 Latanoprost 0.005% Op Soln 2.5 Ml Btl EACH EYE 1 drop HS EUGENIO Administration Levalbuterol HCl 0.63 mg 07/06/25 11:47 Levalbuterol Neb 1.25 Mg/3 Ml INHALATION Q6HRT PRN Shortness Of Breath Or Wheezing Ondansetron HCl 4 mg 06/28/25 13:33 06/30/25 12:00 Ondansetron Inj 4 Mg/2 Ml Vial IV PUSH 4 mg Q4H PRN Administration Nausea And Vomiting Pantoprazole Sodium 40 mg 07/08/25 21:00 07/09/25 09:23 Pantoprazole 40 Mg Tablet PO 40 mg Q12HR EUGENIO Administration Sotalol HCl 80 mg 07/05/25 10:25 07/09/25 09:23 Sotalol Hcl 80 Mg Tablet PO 80 mg Q12HR EUGENIO Administration Radiology Results: ITS Impressions Head CT 06/27/25 21:22 IMPRESSION: No acute intracranial hemorrhage or extra axial fluid collections. All CT scans at this facility are performed using low dose modulation techniques as appropriate to perform exam including the following: automated exposure control; use of iterative reconstruction technique; adjustment of the mA and/or kV according to patient size (this includes techniques or standardized protocols for targeted exams where dose is matched to indication/reason for exam). Chest/Abdomen/Pelvis CTA 06/27/25 22:00 IMPRESSION: 1. Hyperdense soft tissue of the bladder lumen, likely blood clot. Limon catheter present in the bladder lumen. 2: No evidence for aortic aneurysm or dissection. 3: Stenosis of the celiac axis, SMA and renal arteries. Carotid Doppler Study 06/28/25 20:17 IMPRESSION: 1. Less than 50% stenosis in the right internal carotid artery by sonographic criteria. 2. Less than 50% stenosis in the left internal carotid artery by sonographic criteria. Chest X-Ray 06/29/25 08:14 Impression: Mild CHF Pelvis Ultrasound 07/03/25 12:59 IMPRESSION: Probable large clot in the urinary bladder which is poorly distended and otherwise not well evaluated. Venous Doppler Study 07/07/25 13:34 IMPRESSION: Positive for DVT, likely acute, as described. Superficial thrombophlebitis in the cephalic vein. I discussed this case with the ordering physician at the time of interpretation. Labs Labs: Laboratory Results - last 24 hr 07/08/25 07/08/25 07/08/25 13:29 13:49 20:45 WBC RBC Hgb Hct MCV MCH MCHC RDW Plt Count MPV Immature Gran % (Auto) Neut % (Auto) Lymph % (Auto) [place] % (Auto) Eos % (Auto) Baso % (Auto) Lymph # (Auto) [place] # (Auto) Eos # (Auto) Baso # (Auto) Abs Immat Gran (auto) Absolute Neuts (auto) Absolute Nucleated RBC Nucleated RBC % APTT 197.9 H* 112.5 H Sodium Potassium Chloride Carbon Dioxide Anion Gap BUN Creatinine Estim Creat Clear Calc Estimated GFR Glucose Calcium Phosphorus Magnesium Total Bilirubin AST ALT Alkaline Phosphatase Total Protein Albumin Stl Occult Blood Comment Cancelled Stl Occult Blood (ICT) Cancelled Stl Occult Blood (IFOB) Occult Blood (ICT) #2 Cancelled Occult Blood (ICT) #3 Cancelled Vancomycin Trough 14.6 07/09/25 07/09/25 07/09/25 03:58 08:17 12:50 WBC 12.1 H RBC 2.43 L Hgb 7.1 L Hct 23.0 L MCV 94.7 MCH 29.2 MCHC 30.9 L RDW 16.2 H Plt Count 278 MPV 10.1 Immature Gran % (Auto) 3.0 H Neut % (Auto) 80.6 H Lymph % (Auto) 7.3 L [place] % (Auto) 5.8 Eos % (Auto) 2.8 Baso % (Auto) 0.5 Lymph # (Auto) 0.89 L [place] # (Auto) 0.7 H Eos # (Auto) 0.3 Baso # (Auto) 0.1 Abs Immat Gran (auto) 0.36 H Absolute Neuts (auto) 9.8 H Absolute Nucleated RBC 0.000 Nucleated RBC % 0.0 APTT 68.4 H > 200.0 H* Sodium 133 L Potassium 3.5 Chloride 106 Carbon Dioxide 25 Anion Gap 2 L BUN 17 Creatinine 0.56 L Estim Creat Clear Calc 68 Estimated GFR > 60 Glucose 84 Calcium 7.3 L Phosphorus 3.1 Magnesium 1.9 Total Bilirubin 0.5 AST 37 ALT 28 Alkaline Phosphatase 79 Total Protein 5.1 L Albumin 2.3 L Stl Occult Blood Comment Stl Occult Blood (ICT) Stl Occult Blood (IFOB) Positive H Occult Blood (ICT) #2 Occult Blood (ICT) #3 Vancomycin Trough
--- NOTE | 2025-07-09 13:43 | WPDGICN ---
Assessment and Plan Assessment and plan (1) Radiation proctitis: Onset Date: 09/2022 Code(s): K62.7 - Radiation proctitis Status: Acute Assessment and Plan: The patient has a history of radiation proctitis documented by colonoscopy in September 2022. Currently, this does not appear to be the primary source of significant blood loss, as the patient reports only minor, intermittent fresh blood per rectum associated with excessive straining due to constipation, which is likely anal canal in origin, probably hemorroidal. The patient's acute anemia (Hgb 7) is considered multifactorial, most significantly driven by the recent urosepsis and the ongoing persistent gross hematuria requiring continuous bladder irrigation . The recent positive fecal occult blood test is considered unreliable and non-diagnostic in the setting of acute illness. Given the patient's advanced age, critical acute issues (urosepsis, and persistent hematuria), and the high index of suspicion for the urinary tract as the primary bleeding source, GI endoscopic evaluation is not indicated at this time. Further GI evaluation should be deferred until the patient is medically stable, the acute urinary bleeding is controlled. GI Consult Note Consult date/time: 07/09/25 13:43 Reason for consult: FOBT positive-anemia HPI: Khoa Philippe is an 85-year-old male with a history of atrial fibrillation, hypertension, and prostate cancer, admitted on 06/27/2025 following a syncopal episode and gross hematuria shortly after a Limon catheter removal related to recent urologic procedures. His hospital course was complicated by urosepsis requiring ICU admission and vasopressors, transient acute renal injury, and persistent gross hematuria necessitating continuous bladder irrigation; blood cultures were positive for E. coli and Proteus mirabilis (sensitive to ceftriaxone), and his antibiotic regimen was de-escalated to ceftriaxone monotherapy. Of immediate concern, his hemoglobin has been trending down (from 10.0 on 07/13/2025 to 7.1 today), and the reason for the current consultation is a positive fecal occult blood test . Prior GI history includes a September 2022 colonoscopy demonstrating [id number] radiation proctitis not amenable to argon plasma coagulation treatment, which previously responded to oral mesalamine; currently, the patient denies overt rectal bleeding, reporting only minor traces of fresh blood associated with excessive straining from constipation, managed by fiber. Review of Systems Review of Systems: All systems reviewed & are unremarkable except as noted in HPI and below [facility] Past Medical History Medical History (Updated 07/09/25 @ 14:22 by Eric Bedolla MD) Metabolic encephalopathy Kidney stones (~2000) Sleep apnea With recommended CPAP of pressure 13 on polysomnogram 2011 Osteoporosis 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) 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 bleeding CAD (coronary artery disease) With angioplasty and 2 stents in 1999 COVID Prostate cancer 2021 Vitamin D deficiency Left foot drop Lumbar spinal stenosis Essential (primary) hypertension Gastro-esophageal reflux disease without esophagitis Glaucoma History of prostate cancer Mixed hyperlipidemia Seborrheic keratosis Surgical History Surgical History Status post cataract extraction of both eyes with insertion of intraocular lens Status post total replacement of right shoulder History of eye surgery left eye retinal surgery History of coronary artery stent placement , 1999 Status post total replacement of left shoulder Family History Family History Father Family history of heart disease in male family member before age 55, Onset Age: 58 Hypertension Acute myocardial infarction Heart disease Mother Bladder cancer Cerebrovascular accident Sibling , 2021 Liver cancer, primary, with metastasis from liver to other site sister Social History Social History Social History: He has been for 63 years. He and his raised 1 daughter and 1 son. 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 He drinks 1 glass of wine couple of times a month. He is a lifelong nonsmoker and denies history of illicit substance use. He works out at least once a week at [employer] usually on the treadmill. Code status: Full code Surrogate decision maker: Smoking status: Never smoker Second hand tobacco smoke exposure: No Alcohol intake: never Alcohol use details: occasionally Substance use: never Substance use type: does not use Do You Feel Safe in your Home?: Yes Lack of Transportation: No Lack of Food: Never True Current Housing: I Have Housing Concerned About Future Housing: No Difficulty Paying Gas/Electric Bills: No Difficulty Paying for Meds: No Currently Unemployed: No Education: Trade/Vocational Certificate Difficulty w/ Childcare or Family Care: No Living arrangements: with family Occupation/Education: retired Gender identity (if verbalized by the patient): Male Spiritual care concerns: No Agree to blood products: Yes Meds Home Medications and Allergies Home Medications ?Medication ?Instructions ?Recorded ?Confirmed ?Type aspirin 81 mg tablet,delayed 81 mg PO DAILY 11/14/20 06/28/25 History release latanoprost 0.005 % eye drops 1 drp EACH EYE HS 11/14/20 06/28/25 History multivitamin (Multiple Vitamins 1 tablet PO DAILY 11/14/20 06/28/25 History tablet) cholecalciferol (vitamin D3) 10 10 mcg PO DAILY 11/19/21 06/28/25 History mcg (400 unit) tablet vit C 250 mg-vit E 90 mg-zinc 40 1 tablet PO BID 11/19/21 06/28/25 History mg-copper 1 [id number] capsule (PreserVision AREDS-2) krill 300 mg-omega 3 90 mg-dha 24 1 cap PO DAILY 02/02/23 06/28/25 History mg-epa 50 bi-wzqaigq-dpmzh capsule (MegaRed Flournoy-3 Krill Oil) apixaban 5 mg tablet (Eliquis) 5 mg PO Q12HR #60 tabs 07/22/24 06/28/25 Rx metoprolol succinate 100 mg 100 mg PO QAM #30 tabs 07/22/24 06/28/25 Rx tablet,extended release 24 hr (Toprol XL) calcium carbonate 500 mg PO DAILY PRN Indigestion 08/04/24 06/28/25 History acetaminophen 500 mg capsule 1,000 mg (2 x 500 mg) PO Q6-8H PRN 10/05/24 06/28/25 Rx pain #90 caps alendronate 35 mg tablet See Rx Instructions .Route 04/10/25 06/28/25 Rx .COMPLEX #12 tabs atorvastatin 40 mg tablet 40 mg PO HS #90 tabs 04/10/25 06/28/25 Rx lisinopril 20 mg tablet 20 mg PO DAILY #90 tabs 04/10/25 06/28/25 Rx Allergies Allergy/AdvReac Type Severity Reaction Status Date / Time ioversol Allergy Severe Itching Verified 06/28/25 01:26 iodine Allergy Unknown ITCHING Verified 06/28/25 01:26 WITH IV CONTRAST--NO PROBLEM WITH TOPICAL IODINE Vital Signs Vital Signs - 24 hr 07/08/25 14:00 07/08/25 15:42 07/08/25 16:00 Temperature 98.5 F Pulse Rate 88 94 84 Respiratory Rate 18 Blood Pressure 125/90 Pulse Oximetry 99 Oxygen Delivery 07/08/25 16:00 07/08/25 18:00 07/08/25 20:00 Temperature Pulse Rate 91 Respiratory Rate Blood Pressure Pulse Oximetry Oxygen Delivery Room Air Room Air 07/08/25 20:00 07/08/25 20:14 07/08/25 20:46 Temperature 98.1 F Pulse Rate 89 98 95 Respiratory Rate 16 Blood Pressure 125/80 Pulse Oximetry 97 Oxygen Delivery 07/08/25 21:50 07/08/25 22:00 07/08/25 23:15 Temperature 97.7 F Pulse Rate 94 103 H Respiratory Rate 16 Blood Pressure 131/90 Pulse Oximetry 98 99 Oxygen Delivery Room Air 07/08/25 23:48 07/09/25 00:00 07/09/25 02:00 Temperature Pulse Rate 90 88 Respiratory Rate Blood Pressure Pulse Oximetry Oxygen Delivery Room Air 07/09/25 03:35 07/09/25 04:00 07/09/25 04:00 Temperature 97.5 F L Pulse Rate 80 104 H Respiratory Rate 16 Blood Pressure 124/63 Pulse Oximetry 98 Oxygen Delivery Room Air 07/09/25 06:00 07/09/25 07:58 07/09/25 08:00 Temperature 98.1 F Pulse Rate 87 98 Respiratory Rate 16 Blood Pressure 141/81 H Pulse Oximetry 99 Oxygen Delivery Room Air 07/09/25 08:00 07/09/25 09:23 07/09/25 10:00 Temperature Pulse Rate 104 H 90 82 Respiratory Rate Blood Pressure Pulse Oximetry Oxygen Delivery 07/09/25 11:55 Temperature 97.6 F Pulse Rate 50 L Respiratory Rate 16 Blood Pressure 122/63 Pulse Oximetry 100 Oxygen Delivery Exam Narrative: Alert and oriented x3, mild pallor. Abdomen: Soft, nontender, nondistended. Limon catheter in place with continuous bladder irrigation. Results Labs 07/09/25 03:58 07/09/25 03:58 Labs: Short CBC 07/09/25 Range/Units 03:58 WBC 12.1 H (4.5-10.0) K/mm3 Hgb 7.1 L (14.0-18.0) g/dL Hct 23.0 L (42.0-52.0) % Plt Count 278 (150-375) k/mm3 BMP 07/09/25 03:58 Sodium 133 L Potassium 3.5 Chloride 106 Carbon Dioxide 25 BUN 17 Creatinine 0.56 L Glucose 84 Calcium 7.3 L Liver Function 07/09/25 Range/Units 03:58 Total Bilirubin 0.5 (0.2-1.3) mg/dL AST 37 (17-59) U/L ALT 28 (6-50) U/L Alkaline Phosphatase 79 (38-126) U/L Albumin 2.3 L (3.5-5.1) g/dL
[2025-07-09] MEDS: HEPARIN SOD/D5W 100 UNITS/ML 25,000 UNITS/250 ML BAG 9 UNITS IV CONT (16:39)
[2025-07-09 21:02] LABS: Partial Thromboplastin Time 68.7 Seconds (22.3-36.8)
[2025-07-09] MEDS: LATANOPROST 0.005% OP SOLN 2.5 ML BTL 1 DROP EACH EYE (21:07)
[2025-07-09] MEDS: ACETAMINOPHEN 325 MG TABLET 650 MG PO (21:07)
--- NOTE | 2025-07-09 23:19 | ECG_ITS ---
Test Date: 2025-07-09 23:41:18 Measurements Intervals Steward Rate: 51 P: 26 ND: 154 QRS: 3 QRSD: 89 T: -7 QT: 442 QTc: 410 Interpretive Statements SINUS BRADYCARDIA WITH SINUS ARRHYTHMIA LOW QRS VOLTAGE IN EXTREMITY LEADS NONSPECIFIC T-WAVE ABNORMALITY Electronically Signed On 07-10-2025 00:13:37 LIGHTING TECHNICIAN by Lamine Mercado D.O
[2025-07-10] VITALS (21 sets, daily range): BP systolic 112–144; BP diastolic 54–78; PULSE 51–76; RESP 16–20; TEMP 36.4–36.8; O2SAT 98–100
[2025-07-10 04:02] LABS: Mean Corpuscular HGB Conc 31.6 g/dl (32-36); Mean Corpuscular Hemoglobin 29.7 pg (26-34); Mean Corpuscular Volume 94.1 fl (80-100); Platelet Count Result 258 k/mm3 (150-375); Red Blood Count 2.22 M/mm3 (4.6-6.20); White Blood Count 9.1 K/mm3 (4.5-10.0)
[2025-07-10 04:03] LABS: Albumin Level 2.3 g/dL (3.5-5.1); Anion Gap 3 mmol/L (4-12); Blood Urea Nitrogen 16 mg/dL (9-20); Calcium 7.3 mg/dL (8.4-10.2); Carbon Dioxide 24 mmol/L (22-30); Chloride 106 mmol/L (98-107); Estimated CRCL calculation 60 ml/min; Estimated Glomerular Filt Rate > 60; Glucose 85 mg/dL (65-110); Magnesium 1.9 mg/dL (1.6-2.3); Potassium 3.4 mmol/L (3.4-5.0); Sodium 133 mmol/L (137-145)
[2025-07-10 04:16] LABS: Hematocrit 20.9 % (42.0-52.0); Hemoglobin 6.6 g/dL (14.0-18.0)
[2025-07-10 06:36] LABS: Partial Thromboplastin Time 189.6 Seconds (22.3-36.8)
[2025-07-10] MEDS: SOTALOL HCL 80 MG TABLET PO ×2 (09:14→20:22)
[2025-07-10] MEDS: PANTOPRAZOLE 40 MG TABLET PO ×2 (09:14→20:22)
[2025-07-10] MEDS: cefTRIAXone 2 GM in SODIUM CHLORIDE 0.9% IV 100 ML 200 ML IVPB (09:15)
[2025-07-10] MEDS: SODIUM CHLORIDE 0.9% IV 250 ML 30 ML IV CONT (09:59)
--- NOTE | 2025-07-10 10:01 | P.PNUR_ITS ---
Progress Note: A&P Assessment and Plan (1) Gross hematuria: Code(s): R31.0 - Gross hematuria Status: Acute Assessment and Plan: - Off CBI; urine clear yellow without gross hematuria or clots - This AM Hgb at 6.6, planning for transfusion per primary - Pt urine has now been clear for the last 48 hr; low suspicion that gross hematuria is now contributing to continuously downtrending Hgb - No surgical intervention indicated at this time (2) UTI (urinary tract infection): Qualifiers: Urinary tract infection type: acute cystitis Hematuria presence: with hematuria Qualified Code(s): N30.01 - Acute cystitis with hematuria Code(s): N39.0 - Urinary tract infection, site not specified Status: Acute Assessment and Plan: - Continue culture driven Abx - Most recent blood cultures without bacterial growth (3) Urinary retention: Code(s): R33.9 - Retention of urine, unspecified Status: Inactive Assessment and Plan: - Pt with pre-existing urinary retention; had void trial that he initially passed but went back into retention in the setting of significant blood clots in the urine - Prior to discharge may attempt void trial. If emptying adequately (PVR <250 ml) may be discharged without Limon catheter; if PVR elevated >250 ml recommend replacing Limon and follow up outpatient. Subjective Subjective Date/Time Seen: 07/10/25 10:01 Interval history: NAEO; pt resting comfortably in chair this AM. Alert and responsive to questions. Exam Narrative: General: Alert, no acute distress Head: Normocephalic, atraumatic Eyes: Extraocular movements intact Neck: No JVD, trachea midline Respiratory: Symmetric chest rise, nonlabored breathing on room air CV: Normal rate, adequate peripheral perfusion Abdomen: Soft, nontender, nondistended : Limon in place without CBI and draining clear light yellow urine without clots Skin: Globally pale. Warm/dry Extremities: No peripheral edema, no cyanosis Neuro: No focal deficits Psych: Answers questions appropriately, appropriate mood Objective Data Vital Signs Vital Signs: Vital Signs - 24 hr 07/09/25 11:55 07/09/25 12:00 07/09/25 12:00 Temperature 36.4 C Pulse Rate 50 L 57 L Respiratory Rate 16 Blood Pressure 122/63 Pulse Oximetry 100 Oxygen Delivery Room Air 07/09/25 14:00 07/09/25 16:00 07/09/25 16:00 Temperature 36.7 C Pulse Rate 58 L 58 L Respiratory Rate 20 Blood Pressure 132/64 Pulse Oximetry 100 Oxygen Delivery Room Air 07/09/25 16:00 07/09/25 18:00 07/09/25 20:00 Temperature Pulse Rate 58 L 66 Respiratory Rate Blood Pressure Pulse Oximetry Oxygen Delivery Room Air 07/09/25 20:00 07/09/25 20:00 07/09/25 21:07 Temperature 36.5 C Pulse Rate 66 59 L 62 Respiratory Rate 18 Blood Pressure 135/64 Pulse Oximetry 100 Oxygen Delivery 07/09/25 22:00 07/10/25 00:00 07/10/25 00:00 Temperature 36.4 C L Pulse Rate 53 L 54 L Respiratory Rate 20 Blood Pressure 112/59 L Pulse Oximetry 98 Oxygen Delivery Room Air 07/10/25 00:00 07/10/25 02:00 07/10/25 04:00 Temperature 36.4 C L Pulse Rate 51 L 76 54 L Respiratory Rate 18 Blood Pressure 119/66 Pulse Oximetry 100 Oxygen Delivery 07/10/25 04:00 07/10/25 04:00 07/10/25 06:00 Temperature Pulse Rate 57 L 53 L Respiratory Rate Blood Pressure Pulse Oximetry Oxygen Delivery Room Air 07/10/25 08:00 07/10/25 09:14 Temperature 36.4 C Pulse Rate 58 L 61 Respiratory Rate 16 Blood Pressure 144/78 H Pulse Oximetry 99 Oxygen Delivery Intake/Output Intake/Output: Intake & Output 07/07/25 07/08/25 07/09/25 07/10/25 23:59 23:59 23:59 23:59 Intake Total 1728.8 1717.9 1027.1 330.2 Output Total 625 1900 2400 1000 Balance 1103.8 -182.1 -1372.9 -669.8 Meds/Results Medications: Active Medications Generic Name Dose Route Start Last Admin Trade Name Freq PRN Reason Stop Dose Admin Acetaminophen 650 mg 06/28/25 01:26 Acetaminophen 650 Mg Suppository RECTAL Q6H PRN Mild Pain (1-3) or Fever Acetaminophen 650 mg 06/29/25 10:38 07/09/25 21:07 Acetaminophen 325 Mg Tablet PO 650 mg Q4H PRN Administration Mild Pain (1-3) or Fever Heparin Sodium (Porcine) 5,000 units 07/07/25 14:27 07/07/25 22:47 Heparin Sodium 5,000 Units/Ml Vial IV PUSH 5,000 units PRN PRN Administration aPTT less than 55 seconds Heparin Sodium (Porcine) 2,500 units 07/07/25 14:27 07/09/25 05:11 Heparin Sodium 5,000 Units/Ml Vial IV PUSH 2,500 units PRN PRN Administration aPTT 55 - 70 seconds Ceftriaxone Sodium 2 gm/ 100 mls @ 200 mls/hr 07/04/25 13:00 07/10/25 09:15 Sodium Chloride IVPB 200 mls/hr DAILY EUGENIO Administration Heparin Sodium/Dextrose 25,000 units in 250 mls @ 8 mls/hr 07/08/25 15:15 07/10/25 07:45 Heparin Sodium/D5w 100 Units/Ml IV CONT 800 units/hr .Q24H EUGENIO 8 mls/hr Protocol Titration 800 UNITS/HR Sodium Chloride 250 mls @ 30 mls/hr 07/10/25 05:04 07/10/25 09:59 Normal Saline Iv IV CONT 07/10/25 13:23 30 mls/hr .Q8H20M STA Administration Ipratropium [place] 0.5 mg 07/06/25 11:47 Ipratropium Br 0.02% Inh Soln 0.5 Mg/2.5 Ml Vial INHALATION Q6HRT PRN Shortness Of Breath Or Wheezing Latanoprost 1 drop 06/28/25 21:00 07/09/25 21:07 Latanoprost 0.005% Op Soln 2.5 Ml Btl EACH EYE 1 drop HS EUGENIO Administration Levalbuterol HCl 0.63 mg 07/06/25 11:47 Levalbuterol Neb 1.25 Mg/3 Ml INHALATION Q6HRT PRN Shortness Of Breath Or Wheezing Ondansetron HCl 4 mg 06/28/25 13:33 06/30/25 12:00 Ondansetron Inj 4 Mg/2 Ml Vial IV PUSH 4 mg Q4H PRN Administration Nausea And Vomiting Pantoprazole Sodium 40 mg 07/08/25 21:00 07/10/25 09:14 Pantoprazole 40 Mg Tablet PO 40 mg Q12HR EUGENIO Administration Sotalol HCl 80 mg 07/05/25 10:25 07/10/25 09:14 Sotalol Hcl 80 Mg Tablet PO 80 mg Q12HR EUGENIO Administration Radiology Results: ITS Impressions Head CT 06/27/25 21:22 IMPRESSION: No acute intracranial hemorrhage or extra axial fluid collections. All CT scans at this facility are performed using low dose modulation techniques as appropriate to perform exam including the following: automated exposure control; use of iterative reconstruction technique; adjustment of the mA and/or kV according to patient size (this includes techniques or standardized protocols for targeted exams where dose is matched to indication/reason for exam). Chest/Abdomen/Pelvis CTA 06/27/25 22:00 IMPRESSION: 1. Hyperdense soft tissue of the bladder lumen, likely blood clot. Limon catheter present in the bladder lumen. 2: No evidence for aortic aneurysm or dissection. 3: Stenosis of the celiac axis, SMA and renal arteries. Carotid Doppler Study 06/28/25 20:17 IMPRESSION: 1. Less than 50% stenosis in the right internal carotid artery by sonographic criteria. 2. Less than 50% stenosis in the left internal carotid artery by sonographic criteria. Chest X-Ray 06/29/25 08:14 Impression: Mild CHF Pelvis Ultrasound 07/03/25 12:59 IMPRESSION: Probable large clot in the urinary bladder which is poorly distended and otherwise not well evaluated. Venous Doppler Study 07/07/25 13:34 IMPRESSION: Positive for DVT, likely acute, as described. Superficial thrombophlebitis in the cephalic vein. I discussed this case with the ordering physician at the time of interpretation. Labs Labs: Laboratory Results - last 24 hr 07/09/25 07/09/25 07/10/25 12:50 20:38 03:33 WBC 9.1 RBC 2.22 L Hgb 6.6 L* Hct 20.9 L* MCV 94.1 MCH 29.7 MCHC 31.6 L RDW 16.5 H Plt Count 258 MPV 9.8 APTT > 200.0 H* 68.7 H Cancelled Sodium 133 L Potassium 3.4 Chloride 106 Carbon Dioxide 24 Anion Gap 3 L BUN 16 Creatinine 0.65 L Estim Creat Clear Calc 60 Estimated GFR > 60 Glucose 85 Calcium 7.3 L Phosphorus 3.3 Magnesium 1.9 Albumin 2.3 L Ur Random Sodium Vancomycin Trough Blood Type Antibody Screen Crossmatch 07/10/25 07/10/2507/10/25 05:38 08:56 09:07 WBC RBC Hgb Hct MCV MCH MCHC RDW Plt Count MPV APTT 189.6 H* Sodium Potassium Chloride Carbon Dioxide Anion Gap BUN Creatinine Estim Creat Clear Calc Estimated GFR Glucose Calcium Phosphorus Magnesium Albumin Ur Random Sodium 19 Vancomycin Trough 11.6 Blood Type A Positive Antibody Screen Negative Crossmatch See Detail
[2025-07-10] MEDS: TUBING, BLOOD PLUM PUMP TUBING 1 EACH XX (10:15)
--- NOTE | 2025-07-10 11:08 | PCNFU ---
Nutrition Follow-Up Complete: Inadequate oral intake related to loss of appetite as evidenced by intakes 50% Goal:> 50% intake Pt meeting goal, continue with same goal Pt current nutrition is Heart healthy, Ensure BID, nutrition ice cream BID. Nutrition recommendation: continue with current plan of care Last recorded weight is 76 kg. Bowel Motility: +BM 07/08 Labs Reviewed:Hgb:6.6, HCT:20.9, Alb:2.3, Na:133, Cr:0.65 Meds Noted:zofran, protonix Skin: WNL Additional Notes: Pt continues on a heart healthy diet, intake 50-75%. Ensure shakes BID in place as well as nutrition ice cream cups BID. Agree with orders, Encourage po intake of meals and supplements. Monitoring intakes, weights, labs, supplement tolerance, vitals, plan of care Follow up in 7 days.
[2025-07-10] MEDS: CENTRAL LINE FLUSH 10 ML IV PUSH ×2 (14:15→20:23)
[2025-07-10] MEDS: CENTRAL LINE FLUSH 20 ML IV PUSH (14:20)
[2025-07-10 15:04] LABS: Partial Thromboplastin Time 82.8 Seconds (22.3-36.8)
--- NOTE | 2025-07-10 16:29 | PM.IMPN ---
Progress Note: A&P Assessment and Plan (1) Sepsis: Code(s): A41.9 - Sepsis, unspecified organism Status: Acute Assessment and Plan: -his white count was noted to be 20.6 which up trended to 37 K now on down trend Blood culture negative to date. Urine culture with pansensitive E coli and Proteus mirabilis. UA had 51-100 RBC but 0-5 WBC -patient was empirically placed on Rocephin, doxycycline, and vancomycin. -daily CBC -the patient is lethargic and will only open his eyes when his name is called out on admission. -source unknown at this time. -may consider Infectious Disease consult. -lactic acid 4.3 on admission -continue with IV fluids -no open areas noted at this time. No skin tears, no abrasions, and no open areas. Patient remains on vancomycin and Rocephin. Leukocytosis continues to improve and now resolved Rocephin 7 days course completed. Will discontinue (2) Paroxysmal A-fib: Code(s): I48.0 - Paroxysmal atrial fibrillation Status: Acute Assessment and Plan: -the patient is in sinus tachycardia with occasional supraventricular premature complexes. -the patient had been on Eliquis in the past but recently had hematuria and was taken off of the blood thinner. -patient was given a dose of Cardizem in the emergency room. -continue with metoprolol Treated with IV fluids. Was also treated with IV diltiazem and was switched to sotalol by Cardiology. Currently rate controlled and switched to sinus rhythm (3) Hypertension: Code(s): I10 - Essential (primary) hypertension Status: Acute Assessment and Plan: Blood pressure meds on hold Remains on sotalol He used to be on metoprolol and lisinopril at home (4) Sleep apnea: Qualifiers: Sleep apnea type: obstructive Qualified Code(s): G47.33 - Obstructive sleep apnea (adult) (pediatric) Code(s): G47.30 - Sleep apnea, unspecified Status: Acute Assessment and Plan: Continue with auto titrate for CPAP/BiPAP (5) Hyponatremia: Code(s): E87.1 - Hypo-osmolality and hyponatremia Status: Acute Assessment and Plan: -most likely related to dehydration. -continue with IV fluids. 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 -Chest/Abdomen/Pelvis CTA 06/27/25 22:00 IMPRESSION: 1. Hyperdense soft tissue of the bladder lumen, likely blood clot. Limon catheter present in the bladder lumen. 2: No evidence for aortic aneurysm or dissection. 3: Stenosis of the celiac axis, SMA and renal arteries. May consider vascular consult outpatient (7) Encephalopathy: Code(s): G93.40 - Encephalopathy, unspecified Status: Acute Assessment and Plan: -could be due to infectious process. -could be related to the dehydration. -Head CT 06/27/25 21:22 IMPRESSION: No acute intracranial hemorrhage or extra axial fluid collections. -continue with neuro checks every 4 hours. -neurology consulted echo with EF 45-50%. [id number] MR mild TR moderate pulmonary hypertension mild aortic regurgitation. Carotid ultrasound with less than 50% stenosis bilateral internal chowdhury (8) Hypoxia: Code(s): R09.02 - Hypoxemia Status: Acute Assessment and Plan: -titrate oxygen to keep O2 saturations above 92%. -trend troponin -check an echo, last echo on 07/21/2024 was read as a following Summary 1. Definity contrast injected to improve visualization. 2. Normal left ventricular size with preserved systolic contractility. 3. Markedly dilated left atrium. 4. Mild MR. 5. Atrial fibrillation. (9) Hematuria: Code(s): R31.9 - Hematuria, unspecified Status: Acute Assessment and Plan: -consult urology -every 6 hour H&H -the patient has a history of prostate cancer. Is reported that the patient had a procedure within the last 2 weeks. -Limon catheter was placed in the emergency room. patient was started on CBI with resolutionOf hematuria CBI has been off monitor for further hematuria Plan MOOKIE with urinary retention on Limon catheter resolution of MOOKIE Elevated troponin depressions on MOOKIE and significant anemia suspected type 2 History of prostate cancer status post Hypotension admission agreed related to sepsis Paroxysmal atrial fibrillation with rapid ventricular rate resume anticoagulation when able. Right upper extremity swelling noted to have subclavian and axillary acute DVT and hence started back on heparin drip. After heparinizing colin for 24-48 hour will plan to remove the PICC line as PICC line is nonfunctional at this point. Plan to DC PICC line however need IV access for ongoing treatment. Repeat venous duplex with persistent DVT around catheter. Vascular access nurse to use Cathflo for us to be able to use a PICC line. Anemia with FOBT positive GI consulted. Placed on PPI. Continue to monitor H&H with ongoing anticoagulation. H&H dropped down to 6.6 getting transfusion. Recheck post transfusion Subjective Date/time seen: 07/10/25 16:29 Interval history: No new complaints. Labs reviewed hemoglobin down to 6.6 getting transfused today. No IV line hence need to preserve the PICC line. Remains on IV heparin. Discussed with family at bedside no hematuria. Review of Systems Review of Systems: All systems reviewed & are unremarkable except as noted in HPI and below Exam Narrative: Patient is comfortable, NAD HEENT: eyes are clear and none icteric LUNGS:CTA HEART: RR S1S2 ABD: BS+, Soft and nontender Lower extremities: no edema Right upper extremity edema improved SKIN: nonjaundiced Neuro: grossly intact. Limon in place with clear yellow urine in bag Objective Data Vital Signs Vital Signs: Vital Signs - 24 hr 07/09/25 18:00 07/09/25 20:00 07/09/25 20:00 Temperature 97.7 F Pulse Rate 66 66 Respiratory Rate 18 Blood Pressure 135/64 Pulse Oximetry 100 Oxygen Delivery Room Air 07/09/25 20:00 07/09/25 21:07 07/09/25 22:00 Temperature Pulse Rate 59 L 62 53 L Respiratory Rate Blood Pressure Pulse Oximetry Oxygen Delivery 07/10/25 00:00 07/10/25 00:00 07/10/25 00:00 Temperature 97.5 F L Pulse Rate 54 L 51 L Respiratory Rate 20 Blood Pressure 112/59 L Pulse Oximetry 98 Oxygen Delivery Room Air 07/10/25 02:00 07/10/25 04:00 07/10/25 04:00 Temperature 97.5 F L Pulse Rate 76 54 L Respiratory Rate 18 Blood Pressure 119/66 Pulse Oximetry 100 Oxygen Delivery Room Air 07/10/25 04:00 07/10/25 06:00 07/10/25 08:00 Temperature 97.6 F Pulse Rate 57 L 53 L 58 L Respiratory Rate 16 Blood Pressure 144/78 H Pulse Oximetry 99 Oxygen Delivery 07/10/25 08:00 07/10/25 09:14 07/10/25 10:00 Temperature Pulse Rate 65 61 59 L Respiratory Rate Blood Pressure Pulse Oximetry Oxygen Delivery 07/10/25 10:16 07/10/25 10:34 07/10/25 11:34 Temperature 97.9 F 97.6 F 98.2 F Pulse Rate 61 56 L 56 L Respiratory Rate 20 20 18 Blood Pressure 122/60 122/54 L 119/59 L Pulse Oximetry 99 100 99 Oxygen Delivery 07/10/25 11:34 07/10/25 12:00 07/10/25 12:34 Temperature 98.2 F 98.3 F Pulse Rate 56 L 61 61 Respiratory Rate 18 18 Blood Pressure 119/59 L 136/62 Pulse Oximetry 99 100 Oxygen Delivery 07/10/25 13:34 07/10/25 13:40 07/10/25 13:40 Temperature 97.5 F L 97.5 F L 97.5 F L Pulse Rate 63 60 60 Respiratory Rate 20 20 20 Blood Pressure 122/65 122/65 122/65 Pulse Oximetry 100 100 100 Oxygen Delivery Intake/Output Intake/Output: Intake & Output 07/07/25 07/08/25 07/09/25 07/10/25 23:59 23:59 23:59 23:59 Intake Total 1728.8 1717.9 1027.1 1260.2 Output Total 625 1900 2400 1000 Balance 1103.8 -182.1 -1372.9 260.2 Meds/Results Medications: Active Medications Generic Name Dose Route Start Last Admin Trade Name Jeff PRN Reason Stop Dose Admin Acetaminophen 650 mg 06/28/25 01:26 Acetaminophen 650 Mg Suppository RECTAL Q6H PRN Mild Pain (1-3) or Fever Acetaminophen 650 mg 06/29/25 10:38 07/09/25 21:07 Acetaminophen 325 Mg Tablet PO 650 mg Q4H PRN Administration Mild Pain (1-3) or Fever Heparin Sodium (Porcine) 5,000 units 07/07/25 14:27 07/07/25 22:47 Heparin Sodium 5,000 Units/Ml Vial IV PUSH 5,000 units PRN PRN Administration aPTT less than 55 seconds Heparin Sodium (Porcine) 2,500 units 07/07/25 14:27 07/09/25 05:11 Heparin Sodium 5,000 Units/Ml Vial IV PUSH 2,500 units PRN PRN Administration aPTT 55 - 70 seconds Ceftriaxone Sodium 2 gm/ 100 mls @ 200 mls/hr 07/04/25 13:00 07/10/25 10:00 Sodium Chloride IVPB Infused DAILY EUGENIO Infusion Heparin Sodium/Dextrose 25,000 units in 250 mls @ 8 mls/hr 07/08/25 15:15 07/10/25 07:45 Heparin Sodium/D5w 100 Units/Ml IV CONT 800 units/hr .Q24H EUGENIO 8 mls/hr Protocol Titration 800 UNITS/HR Ipratropium [place] 0.5 mg 07/06/25 11:47 Ipratropium Br 0.02% Inh Soln 0.5 Mg/2.5 Ml Vial INHALATION Q6HRT PRN Shortness Of Breath Or Wheezing Latanoprost 1 drop 06/28/25 21:00 07/09/25 21:07 Latanoprost 0.005% Op Soln 2.5 Ml Btl EACH EYE 1 drop HS EUGENIO Administration Levalbuterol HCl 0.63 mg 07/06/25 11:47 Levalbuterol Neb 1.25 Mg/3 Ml INHALATION Q6HRT PRN Shortness Of Breath Or Wheezing Ondansetron HCl 4 mg 06/28/25 13:33 06/30/25 12:00 Ondansetron Inj 4 Mg/2 Ml Vial IV PUSH 4 mg Q4H PRN Administration Nausea And Vomiting Pantoprazole Sodium 40 mg 07/08/25 21:00 07/10/25 09:14 Pantoprazole 40 Mg Tablet PO 40 mg Q12HR EUGENIO Administration Sodium Chloride 10 ml 07/10/25 14:00 07/10/25 14:15 Central Line Flush IV PUSH 10 ml Q8HR EUGENIO Administration Sodium Chloride 10 ml 07/10/25 13:03 Central Line Flush IV PUSH PRN PRN with TPN bag changes Sodium Chloride 20 ml 07/10/25 13:03 07/10/25 14:20 Central Line Flush IV PUSH 20 ml PRN PRN Administration after blood draws Sotalol HCl 80 mg 07/05/25 10:25 07/10/25 09:14 Sotalol Hcl 80 Mg Tablet PO 80 mg Q12HR EUGENIO Administration Radiology Results: ITS Impressions Head CT 06/27/25 21:22 IMPRESSION: No acute intracranial hemorrhage or extra axial fluid collections. All CT scans at this facility are performed using low dose modulation techniques as appropriate to perform exam including the following: automated exposure control; use of iterative reconstruction technique; adjustment of the mA and/or kV according to patient size (this includes techniques or standardized protocols for targeted exams where dose is matched to indication/reason for exam). Chest/Abdomen/Pelvis CTA 06/27/25 22:00 IMPRESSION: 1. Hyperdense soft tissue of the bladder lumen, likely blood clot. Limon catheter present in the bladder lumen. 2: No evidence for aortic aneurysm or dissection. 3: Stenosis of the celiac axis, SMA and renal arteries. Carotid Doppler Study 06/28/25 20:17 IMPRESSION: 1. Less than 50% stenosis in the right internal carotid artery by sonographic criteria. 2. Less than 50% stenosis in the left internal carotid artery by sonographic criteria. Pelvis Ultrasound 07/03/25 12:59 IMPRESSION: Probable large clot in the urinary bladder which is poorly distended and otherwise not well evaluated. Chest X-Ray 07/10/25 13:16 IMPRESSION: 1. Right PICC catheter tip upper SVC. 2. Mild bibasilar atelectasis and/or airspace disease, with small pleural effusions. Labs Labs: Laboratory Results - last 24 hr 07/09/25 07/10/25 07/10/25 20:38 03:33 05:38 WBC 9.1 RBC 2.22 L Hgb 6.6 L* Hct 20.9 L* MCV 94.1 MCH 29.7 MCHC 31.6 L RDW 16.5 H Plt Count 258 MPV 9.8 APTT 68.7 H Cancelled 189.6 H* Sodium 133 L Potassium 3.4 Chloride 106 Carbon Dioxide 24 Anion Gap 3 L BUN 16 Creatinine 0.65 L Estim Creat Clear Calc 60 Estimated GFR > 60 Glucose 85 Calcium 7.3 L Phosphorus 3.3 Magnesium 1.9 Albumin 2.3 L Ur Random Sodium Vancomycin Trough Blood Type A Positive Antibody Screen Negative Crossmatch See Detail 07/10/25 07/10/25 07/10/25 08:56 09:07 14:17 WBC RBC Hgb Hct MCV MCH MCHC RDW Plt Count MPV APTT 82.8 H Sodium Potassium Chloride Carbon Dioxide Anion Gap BUN Creatinine Estim Creat Clear Calc Estimated GFR Glucose Calcium Phosphorus Magnesium Albumin Ur Random Sodium 19 Vancomycin Trough 11.6 Blood Type Antibody Screen Crossmatch
[2025-07-10] MEDS: HEPARIN SOD/D5W 100 UNITS/ML 25,000 UNITS/250 ML BAG 8 UNITS IV CONT (20:22)
[2025-07-10 20:37] LABS: Hematocrit 25.5 % (42.0-52.0); Hemoglobin 8.2 g/dL (14.0-18.0)
[2025-07-10 20:58] LABS: Partial Thromboplastin Time 66.5 Seconds (22.3-36.8)
[2025-07-10] MEDS: LATANOPROST 0.005% OP SOLN 2.5 ML BTL 1 DROP EACH EYE (21:08)
[2025-07-11] VITALS (16 sets, daily range): BP systolic 127–153; BP diastolic 57–90; PULSE 50–63; RESP 18–22; TEMP 36.4–36.8; O2SAT 94–100
[2025-07-11 03:28] LABS: Hematocrit 24.2 % (42.0-52.0); Hemoglobin 7.9 g/dL (14.0-18.0); Immature Granulocyte Percent A 3.2 % (0-0.5); Lymphocytes Absolute Auto 0.89 K/mm3 (0.9-3.2); Mean Corpuscular HGB Conc 32.6 g/dl (32-36); Mean Corpuscular Hemoglobin 29.8 pg (26-34); Mean Corpuscular Volume 91.3 fl (80-100); Nucleated Red Blood Cells Absolute Auto 0.020 K/mm3 (0.0-0.012); Nucleated Red Blood Cells Perc 0.2 % (0.0-0.2); Platelet Count Result 240 k/mm3 (150-375); Red Blood Count 2.65 M/mm3 (4.6-6.20); White Blood Count 8.7 K/mm3 (4.5-10.0)
[2025-07-11 03:44] LABS: Alanine Aminotransferase 25 U/L (6-50); Albumin Level 2.4 g/dL (3.5-5.1); Alkaline Phosphatase 87 U/L (38-126); Anion Gap 1 mmol/L (4-12); Aspartate Amino Transferase 26 U/L (17-59); Bilirubin,Total 0.5 mg/dL (0.2-1.3); Blood Urea Nitrogen 14 mg/dL (9-20); Calcium 7.5 mg/dL (8.4-10.2); Carbon Dioxide 27 mmol/L (22-30); Chloride 107 mmol/L (98-107); Estimated CRCL calculation 59 ml/min; Estimated Glomerular Filt Rate > 60; Glucose 82 mg/dL (65-110); Magnesium 2.0 mg/dL (1.6-2.3); Potassium 3.4 mmol/L (3.4-5.0); Sodium 135 mmol/L (137-145); Total Protein 5.2 g/dL (6.3-8.2)
[2025-07-11 03:53] LABS: Partial Thromboplastin Time > 200.0 Seconds (22.3-36.8)
[2025-07-11] MEDS: CENTRAL LINE FLUSH 10 ML IV PUSH ×3 (05:14→21:07)
[2025-07-11] MEDS: PANTOPRAZOLE 40 MG TABLET PO ×2 (08:53→21:04)
[2025-07-11] MEDS: SOTALOL HCL 80 MG TABLET PO ×2 (08:53→21:04)
[2025-07-11 11:22] LABS: Hematocrit 25.9 % (42.0-52.0); Hemoglobin 8.4 g/dL (14.0-18.0)
[2025-07-11 11:59] LABS: Partial Thromboplastin Time 76.4 Seconds (22.3-36.8)
--- NOTE | 2025-07-11 13:12 | PCOTNOTE ---
Attempted, Patient working with PT at this time.
--- NOTE | 2025-07-11 14:24 | P.PNUR_ITS ---
Progress Note: A&P Assessment and Plan (1) Gross hematuria: Code(s): R31.0 - Gross hematuria Status: Acute Assessment and Plan: - Off CBI; urine clear yellow without gross hematuria or clots - Considering hematuria has now cleared gross hematuria unlikely to be contributing to any ongoing down trends of pt HGB - No surgical intervention indicated at this time (2) UTI (urinary tract infection): Qualifiers: Urinary tract infection type: acute cystitis Hematuria presence: with hematuria Qualified Code(s): N30.01 - Acute cystitis with hematuria Code(s): N39.0 - Urinary tract infection, site not specified Status: Acute Assessment and Plan: - Continue culture driven Abx - Most recent blood cultures without bacterial growth (3) Urinary retention: Code(s): R33.9 - Retention of urine, unspecified Status: Inactive Assessment and Plan: - Pt with pre-existing urinary retention; had void trial that he initially passed but went back into retention in the setting of significant blood clots in the urine - Prior to discharge may attempt void trial. If emptying adequately (PVR <250 ml) may be discharged without Limon catheter; if PVR elevated >250 ml recommend replacing Limon and follow up outpatient. Plan At this time urology to follow peripherally, if any questions please call Subjective Subjective Date/Time Seen: 07/11/25 14:24 Interval history: NAEO; pt resting comfortably in bed. Had blood transfusion yesterday and states he feels less lethargic today. Still with some intermittent dizziness. No issues with Limon catheter; has remained clear, yellow urine. Exam Narrative: General: Alert, no acute distress Head: Normocephalic, atraumatic Eyes: Extraocular movements intact Neck: No JVD, trachea midline Respiratory: Symmetric chest rise, nonlabored breathing on room air CV: Normal rate, adequate peripheral perfusion Abdomen: Soft, nontender, nondistended : Limon in place without CBI and draining clear light yellow urine without clots Skin: Globally pale. Warm/dry Extremities: No peripheral edema, no cyanosis Neuro: No focal deficits Psych: Answers questions appropriately, appropriate mood Objective Data Vital Signs Vital Signs: Vital Signs - 24 hr 07/10/25 16:00 07/10/25 16:00 07/10/25 18:00 Temperature 36.6 C Pulse Rate 60 62 60 Respiratory Rate 18 Blood Pressure 139/64 Pulse Oximetry 99 Oxygen Delivery 07/10/25 20:00 07/10/25 20:00 07/10/25 20:22 Temperature 36.7 C Pulse Rate 59 L 57 L 61 Respiratory Rate 18 Blood Pressure 135/75 Pulse Oximetry 100 Oxygen Delivery 07/10/25 20:25 07/10/25 22:00 07/11/25 00:00 Temperature 36.8 C Pulse Rate 61 59 L 55 L Respiratory Rate 18 18 Blood Pressure 131/68 Pulse Oximetry 99 100 Oxygen Delivery Room Air 07/11/25 00:00 07/11/25 02:00 07/11/25 04:00 Temperature Pulse Rate 51 L 50 L 53 L Respiratory Rate Blood Pressure Pulse Oximetry Oxygen Delivery 07/11/25 04:00 07/11/25 06:00 07/11/25 07:40 Temperature 36.6 C 36.4 C Pulse Rate 54 L 52 L 59 L Respiratory Rate 18 18 Blood Pressure 134/65 153/90 H Pulse Oximetry 97 98 Oxygen Delivery 07/11/25 08:00 07/11/25 08:53 07/11/25 10:00 Temperature Pulse Rate 60 60 58 L Respiratory Rate Blood Pressure Pulse Oximetry Oxygen Delivery 07/11/25 11:33 07/11/25 12:00 07/11/25 14:00 Temperature 36.8 C Pulse Rate 51 L 55 L 59 L Respiratory Rate 18 Blood Pressure 132/68 Pulse Oximetry 99 Oxygen Delivery Intake/Output Intake/Output: Intake & Output 07/08/25 07/09/25 07/10/25 07/11/25 23:59 23:59 23:59 23:59 Intake Total 1717.9 1027.1 2771.3 965 Output Total 1900 2400 1400 750 Balance -182.1 -1372.9 1371.3 215 Meds/Results Medications: Active Medications Generic Name Dose Route Start Last Admin Trade Name Freq PRN Reason Stop Dose Admin Acetaminophen 650 mg 06/28/25 01:26 Acetaminophen 650 Mg Suppository RECTAL Q6H PRN Mild Pain (1-3) or Fever Acetaminophen 650 mg 06/29/25 10:38 07/09/25 21:07 Acetaminophen 325 Mg Tablet PO 650 mg Q4H PRN Administration Mild Pain (1-3) or Fever Heparin Sodium (Porcine) 5,000 units 07/07/25 14:27 11/14/25 22:47 Heparin Sodium 5,000 Units/Ml Vial IV PUSH 5,000 units PRN PRN Administration aPTT less than 55 seconds Heparin Sodium (Porcine) 2,500 units 07/07/25 14:27 07/10/25 21:08 Heparin Sodium 5,000 Units/Ml Vial IV PUSH 2,500 units PRN PRN Administration aPTT 55 - 70 seconds Heparin Sodium/Dextrose 25,000 units in 250 mls @ 7 mls/hr 07/08/25 15:15 07/11/25 12:00 Heparin Sodium/D5w 100 Units/Ml IV CONT 700 units/hr .Q24H EUGENIO 7 mls/hr Protocol Titration 700 UNITS/HR Ipratropium [place] 0.5 mg 07/06/25 11:47 Ipratropium Br 0.02% Inh Soln 0.5 Mg/2.5 Ml Vial INHALATION Q6HRT PRN Shortness Of Breath Or Wheezing Latanoprost 1 drop 06/28/25 21:00 07/10/25 21:08 Latanoprost 0.005% Op Soln 2.5 Ml Btl EACH EYE 1 drop HS EUGENIO Administration Levalbuterol HCl 0.63 mg 07/06/25 11:47 Levalbuterol Neb 1.25 Mg/3 Ml INHALATION Q6HRT PRN Shortness Of Breath Or Wheezing Ondansetron HCl 4 mg 06/28/25 13:33 06/30/25 12:00 Ondansetron Inj 4 Mg/2 Ml Vial IV PUSH 4 mg Q4H PRN Administration Nausea And Vomiting Pantoprazole Sodium 40 mg 07/08/25 21:00 07/11/25 08:53 Pantoprazole 40 Mg Tablet PO 40 mg Q12HR EUGENIO Administration Sodium Chloride 10 ml 07/10/25 14:00 07/11/25 05:14 Central Line Flush IV PUSH 10 ml Q8HR EUGENIO Administration Sodium Chloride 10 ml 07/10/25 13:03 Central Line Flush IV PUSH PRN PRN with TPN bag changes Sodium Chloride 20 ml 07/10/25 13:03 07/10/25 14:20 Central Line Flush IV PUSH 20 ml PRN PRN Administration after blood draws Sotalol HCl 80 mg 07/05/25 10:25 07/11/25 08:53 Sotalol Hcl 80 Mg Tablet PO 80 mg Q12HR EUGENIO Administration Radiology Results: ITS Impressions Head CT 06/27/25 21:22 IMPRESSION: No acute intracranial hemorrhage or extra axial fluid collections. All CT scans at this facility are performed using low dose modulation techniques as appropriate to perform exam including the following: automated exposure control; use of iterative reconstruction technique; adjustment of the mA and/or kV according to patient size (this includes techniques or standardized protocols for targeted exams where dose is matched to indication/reason for exam). Chest/Abdomen/Pelvis CTA 06/27/25 22:00 IMPRESSION: 1. Hyperdense soft tissue of the bladder lumen, likely blood clot. Limon catheter present in the bladder lumen. 2: No evidence for aortic aneurysm or dissection. 3: Stenosis of the celiac axis, SMA and renal arteries. Carotid Doppler Study 06/28/25 20:17 IMPRESSION: 1. Less than 50% stenosis in the right internal carotid artery by sonographic criteria. 2. Less than 50% stenosis in the left internal carotid artery by sonographic criteria. Pelvis Ultrasound 07/03/25 12:59 IMPRESSION: Probable large clot in the urinary bladder which is poorly distended and otherwise not well evaluated. Chest X-Ray 07/10/25 13:16 IMPRESSION: 1. Right PICC catheter tip upper SVC. 2. Mild bibasilar atelectasis and/or airspace disease, with small pleural effusions. Labs Labs: Laboratory Results - last 24 hr 07/10/25 07/10/25 07/10/25 05:38 14:17 20:32 WBC RBC Hgb 8.2 L Hct 25.5 L MCV MCH MCHC RDW Plt Count MPV Immature Gran % (Auto) Neut % (Auto) Lymph % (Auto) [place] % (Auto) Eos % (Auto) Baso % (Auto) Lymph # (Auto) [place] # (Auto) Eos # (Auto) Baso # (Auto) Abs Immat Gran (auto) Absolute Neuts (auto) Absolute Nucleated RBC Nucleated RBC % APTT 82.8 H 66.5 H Sodium Potassium Chloride Carbon Dioxide Anion Gap BUN Creatinine Estim Creat Clear Calc Estimated GFR Glucose Calcium Phosphorus Magnesium Total Bilirubin AST ALT Alkaline Phosphatase Total Protein Albumin Crossmatch See Detail 07/11/25 07/11/25 03:19 11:09 WBC 8.7 RBC 2.65 L Hgb 7.9 L 8.4 L Hct 24.2 L 25.9 L MCV 91.3 MCH 29.8 MCHC 32.6 RDW 16.7 H Plt Count 240 MPV 9.5 Immature Gran % (Auto) 3.2 H Neut % (Auto) 75.1 H Lymph % (Auto) 10.3 L [place] % (Auto) 8.5 Eos % (Auto) 2.4 Baso % (Auto) 0.5 Lymph # (Auto) 0.89 L [place] # (Auto) 0.7 H Eos # (Auto) 0.2 Baso # (Auto) 0.0 Abs Immat Gran (auto) 0.28 H Absolute Neuts (auto) 6.5 Absolute Nucleated RBC 0.020 H Nucleated RBC % 0.2 APTT > 200.0 H* 76.4 H Sodium 135 L Potassium 3.4 Chloride 107 Carbon Dioxide 27 Anion Gap 1 L BUN 14 Creatinine 0.66 L Estim Creat Clear Calc 59 Estimated GFR > 60 Glucose 82 Calcium 7.5 L Phosphorus 2.9 Magnesium 2.0 Total Bilirubin 0.5 AST 26 ALT 25 Alkaline Phosphatase 87 Total Protein 5.2 L Albumin 2.4 L Crossmatch
--- NOTE | 2025-07-11 17:27 | PM.IMPN ---
Progress Note: A&P Assessment and Plan (1) Sepsis: Code(s): A41.9 - Sepsis, unspecified organism Status: Acute Assessment and Plan: -his white count was noted to be 20.6 which up trended to 37 K now on down trend Blood culture negative to date. Urine culture with pansensitive E coli and Proteus mirabilis. UA had 51-100 RBC but 0-5 WBC -patient was empirically placed on Rocephin, doxycycline, and vancomycin. -daily CBC -the patient is lethargic and will only open his eyes when his name is called out on admission. -source unknown at this time. -may consider Infectious Disease consult. -lactic acid 4.3 on admission -continue with IV fluids -no open areas noted at this time. No skin tears, no abrasions, and no open areas. Patient remains on vancomycin and Rocephin. Leukocytosis continues to improve and now resolved Rocephin 7 days course completed. Completed antibiotics (2) Paroxysmal A-fib: Code(s): I48.0 - Paroxysmal atrial fibrillation Status: Acute Assessment and Plan: -the patient is in sinus tachycardia with occasional supraventricular premature complexes. -the patient had been on Eliquis in the past but recently had hematuria and was taken off of the blood thinner. -patient was given a dose of Cardizem in the emergency room. -continue with metoprolol Treated with IV fluids. Was also treated with IV diltiazem and was switched to sotalol by Cardiology. Currently rate controlled and switched to sinus rhythm (3) Hypertension: Code(s): I10 - Essential (primary) hypertension Status: Acute Assessment and Plan: Blood pressure meds on hold Remains on sotalol He used to be on metoprolol and lisinopril at home (4) Sleep apnea: Qualifiers: Sleep apnea type: obstructive Qualified Code(s): G47.33 - Obstructive sleep apnea (adult) (pediatric) Code(s): G47.30 - Sleep apnea, unspecified Status: Acute Assessment and Plan: Continue with auto titrate for CPAP/BiPAP (5) Hyponatremia: Code(s): E87.1 - Hypo-osmolality and hyponatremia Status: Acute Assessment and Plan: -most likely related to dehydration. -continue with IV fluids. 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 -Chest/Abdomen/Pelvis CTA 06/27/25 22:00 IMPRESSION: 1. Hyperdense soft tissue of the bladder lumen, likely blood clot. Limno catheter present in the bladder lumen. 2: No evidence for aortic aneurysm or dissection. 3: Stenosis of the celiac axis, SMA and renal arteries. May consider vascular consult outpatient (7) Encephalopathy: Code(s): G93.40 - Encephalopathy, unspecified Status: Acute Assessment and Plan: -could be due to infectious process. -could be related to the dehydration. -Head CT 06/27/25 21:22 IMPRESSION: No acute intracranial hemorrhage or extra axial fluid collections. -continue with neuro checks every 4 hours. -neurology consulted echo with EF 45-50%. [id number] MR mild TR moderate pulmonary hypertension mild aortic regurgitation. Carotid ultrasound with less than 50% stenosis bilateral internal chowdhury (8) Hypoxia: Code(s): R09.02 - Hypoxemia Status: Acute Assessment and Plan: -titrate oxygen to keep O2 saturations above 92%. -trend troponin -check an echo, last echo on 07/21/2024 was read as a following Summary 1. Definity contrast injected to improve visualization. 2. Normal left ventricular size with preserved systolic contractility. 3. Markedly dilated left atrium. 4. Mild MR. 5. Atrial fibrillation. (9) Hematuria: Code(s): R31.9 - Hematuria, unspecified Status: Acute Assessment and Plan: -consult urology -every 6 hour H&H -the patient has a history of prostate cancer. Is reported that the patient had a procedure within the last 2 weeks. -Limon catheter was placed in the emergency room. patient was started on CBI with resolutionOf hematuria CBI has been off monitor for further hematuria Plan # MOOKIE with urinary retention on Liomn catheter resolution of MOOKIE # Elevated troponin depressions on MOOKIE and significant anemia suspected type 2 # History of prostate cancer status post # Hypotension admission agreed related to sepsis # Paroxysmal atrial fibrillation with rapid ventricular rate resume anticoagulation when able. # Right upper extremity swelling noted to have subclavian and axillary acute DVT and hence started back on heparin drip. After heparinizing colin for 24-48 hour will plan to remove the PICC line as PICC line is nonfunctional at this point. Plan to DC PICC line however need IV access for ongoing treatment. Repeat venous duplex with persistent DVT around catheter. Vascular access nurse used Cathflo and readjusted PICC line. Currently PICC line in place is the only IV access # Anemia with FOBT positive GI consulted. Placed on PPI. Continue to monitor H&H with ongoing anticoagulation. H&H dropped down to 6.6 status post PRBC transfusion 07/10/2025. Recheck post transfusion adequate and remains stable with no other signs of bleeding Will switch heparin drip to Eliquis. If H&H remains stable will plan to DC in 1-2 days Subjective Date/time seen: 07/11/25 17:27 Interval history: No overnight events. H&H remains stable. No hematuria. Feels good. No chest pain or shortness of breath. Review of Systems Review of Systems: All systems reviewed & are unremarkable except as noted in HPI and below Exam Narrative: Patient is comfortable, NAD HEENT: eyes are clear and none icteric LUNGS:CTA HEART: RR S1S2 ABD: BS+, Soft and nontender Lower extremities: no edema Right upper extremity edema improved SKIN: nonjaundiced Neuro: grossly intact. Limon in place with clear yellow urine in bag Objective Data Vital Signs Vital Signs: Vital Signs - 24 hr 07/10/25 18:00 07/10/25 20:00 07/10/25 20:00 Temperature 98.1 F Pulse Rate 60 59 L 57 L Respiratory Rate 18 Blood Pressure 135/75 Pulse Oximetry 100 Oxygen Delivery 07/10/25 20:22 07/10/25 20:25 07/10/25 22:00 Temperature Pulse Rate 61 61 59 L Respiratory Rate 18 Blood Pressure Pulse Oximetry 99 Oxygen Delivery Room Air 07/11/25 00:00 07/11/25 00:00 07/11/25 02:00 Temperature 98.2 F Pulse Rate 55 L 51 L 50 L Respiratory Rate 18 Blood Pressure 131/68 Pulse Oximetry 100 Oxygen Delivery 07/11/25 04:00 07/11/25 04:00 07/11/25 06:00 Temperature 97.9 F Pulse Rate 53 L 54 L 52 L Respiratory Rate 18 Blood Pressure 134/65 Pulse Oximetry 97 Oxygen Delivery 07/11/25 07:40 07/11/25 08:00 07/11/25 08:53 Temperature 97.6 F Pulse Rate 59 L 60 60 Respiratory Rate 18 Blood Pressure 153/90 H Pulse Oximetry 98 Oxygen Delivery 07/11/25 10:00 07/11/25 11:33 07/11/25 12:00 Temperature 98.2 F Pulse Rate 58 L 51 L 55 L Respiratory Rate 18 Blood Pressure 132/68 Pulse Oximetry 99 Oxygen Delivery 07/11/25 14:00 07/11/25 16:00 Temperature 97.8 F Pulse Rate 59 L 60 Respiratory Rate 22 H Blood Pressure 136/69 Pulse Oximetry 99 Oxygen Delivery Intake/Output Intake/Output: Intake & Output 07/08/25 07/09/25 07/10/25 07/11/25 23:59 23:59 23:59 23:59 Intake Total 1717.9 1027.1 2771.3 965 Output Total 1900 2400 1400 750 Balance -182.1 -1372.9 1371.3 215 Meds/Results Medications: Active Medications Generic Name Dose Route Start Last Admin Trade Name Freq PRN Reason Stop Dose Admin Acetaminophen 650 mg 06/28/25 01:26 Acetaminophen 650 Mg Suppository RECTAL Q6H PRN Mild Pain (1-3) or Fever Acetaminophen 650 mg 06/29/25 10:38 07/09/25 21:07 Acetaminophen 325 Mg Tablet PO 650 mg Q4H PRN Administration Mild Pain (1-3) or Fever Heparin Sodium (Porcine) 5,000 units 07/07/25 14:27 07/07/25 22:47 Heparin Sodium 5,000 Units/Ml Vial IV PUSH 5,000 units PRN PRN Administration aPTT less than 55 seconds Heparin Sodium (Porcine) 2,500 units 07/07/25 14:27 07/10/25 21:08 Heparin Sodium 5,000 Units/Ml Vial IV PUSH 2,500 units PRN PRN Administration aPTT 55 - 70 seconds Heparin Sodium/Dextrose 25,000 units in 250 mls @ 7 mls/hr 07/08/25 15:15 07/11/25 15:12 Heparin Sodium/D5w 100 Units/Ml IV CONT Not Given .Q24H EUGENIO Protocol 700 UNITS/HR Ipratropium [place] 0.5 mg 07/06/25 11:47 Ipratropium Br 0.02% Inh Soln 0.5 Mg/2.5 Ml Vial INHALATION Q6HRT PRN Shortness Of Breath Or Wheezing Latanoprost 1 drop 06/28/25 21:00 07/10/25 21:08 Latanoprost 0.005% Op Soln 2.5 Ml Btl EACH EYE 1 drop HS EUGENIO Administration Levalbuterol HCl 0.63 mg 07/06/25 11:47 Levalbuterol Neb 1.25 Mg/3 Ml INHALATION Q6HRT PRN Shortness Of Breath Or Wheezing Ondansetron HCl 4 mg 06/28/25 13:33 06/30/25 12:00 Ondansetron Inj 4 Mg/2 Ml Vial IV PUSH 4 mg Q4H PRN Administration Nausea And Vomiting Pantoprazole Sodium 40 mg 07/08/25 21:00 07/11/25 08:53 Pantoprazole 40 Mg Tablet PO 40 mg Q12HR EUGENIO Administration Sodium Chloride 10 ml 07/10/25 14:00 07/11/25 15:13 Central Line Flush IV PUSH 10 ml Q8HR EUGENIO Administration Sodium Chloride 10 ml 07/10/25 13:03 Central Line Flush IV PUSH PRN PRN with TPN bag changes Sodium Chloride 20 ml 07/10/25 13:03 07/10/25 14:20 Central Line Flush IV PUSH 20 ml PRN PRN Administration after blood draws Sotalol HCl 80 mg 07/05/25 10:25 07/11/25 08:53 Sotalol Hcl 80 Mg Tablet PO 80 mg Q12HR EUGENIO Administration Radiology Results: ITS Impressions Head CT 06/27/25 21:22 IMPRESSION: No acute intracranial hemorrhage or extra axial fluid collections. All CT scans at this facility are performed using low dose modulation techniques as appropriate to perform exam including the following: automated exposure control; use of iterative reconstruction technique; adjustment of the mA and/or kV according to patient size (this includes techniques or standardized protocols for targeted exams where dose is matched to indication/reason for exam). Chest/Abdomen/Pelvis CTA 06/27/25 22:00 IMPRESSION: 1. Hyperdense soft tissue of the bladder lumen, likely blood clot. Limon catheter present in the bladder lumen. 2: No evidence for aortic aneurysm or dissection. 3: Stenosis of the celiac axis, SMA and renal arteries. Carotid Doppler Study 06/28/25 20:17 IMPRESSION: 1. Less than 50% stenosis in the right internal carotid artery by sonographic criteria. 2. Less than 50% stenosis in the left internal carotid artery by sonographic criteria. Pelvis Ultrasound 07/03/25 12:59 IMPRESSION: Probable large clot in the urinary bladder which is poorly distended and otherwise not well evaluated. Chest X-Ray 07/10/25 13:16 IMPRESSION: 1. Right PICC catheter tip upper SVC. 2. Mild bibasilar atelectasis and/or airspace disease, with small pleural effusions. Labs Labs: Laboratory Results - last 24 hr 07/10/25 07/11/25 07/11/25 20:32 03:19 11:09 WBC 8.7 RBC 2.65 L Hgb 8.2 L 7.9 L 8.4 L Hct 25.5 L 24.2 L 25.9 L MCV 91.3 MCH 29.8 MCHC 32.6 RDW 16.7 H Plt Count 240 MPV 9.5 Immature Gran % (Auto) 3.2 H Neut % (Auto) 75.1 H Lymph % (Auto) 10.3 L [place] % (Auto) 8.5 Eos % (Auto) 2.4 Baso % (Auto) 0.5 Lymph # (Auto) 0.89 L [place] # (Auto) 0.7 H Eos # (Auto) 0.2 Baso # (Auto) 0.0 Abs Immat Gran (auto) 0.28 H Absolute Neuts (auto) 6.5 Absolute Nucleated RBC 0.020 H Nucleated RBC % 0.2 APTT 66.5 H > 200.0 H* 76.4 H Sodium 135 L Potassium 3.4 Chloride 107 Carbon Dioxide 27 Anion Gap 1 L BUN 14 Creatinine 0.66 L Estim Creat Clear Calc 59 Estimated GFR > 60 Glucose 82 Calcium 7.5 L Phosphorus 2.9 Magnesium 2.0 Total Bilirubin 0.5 AST 26 ALT 25 Alkaline Phosphatase 87 Total Protein 5.2 L Albumin 2.4 L
[2025-07-11 19:18] LABS: Partial Thromboplastin Time 60.9 Seconds (22.3-36.8)
[2025-07-11] MEDS: APIXABAN 5 MG TABLET PO (21:04)
[2025-07-11] MEDS: LATANOPROST 0.005% OP SOLN 2.5 ML BTL 1 DROP EACH EYE (21:07)
[2025-07-12] VITALS (15 sets, daily range): BP systolic 137–167; BP diastolic 60–78; PULSE 50–63; RESP 18–22; TEMP 36.4–37; O2SAT 96–100
[2025-07-12 04:35] LABS: Hematocrit 25.1 % (42.0-52.0); Hemoglobin 7.8 g/dL (14.0-18.0); Mean Corpuscular HGB Conc 31.1 g/dl (32-36); Mean Corpuscular Hemoglobin 29.2 pg (26-34); Mean Corpuscular Volume 94.0 fl (80-100); Platelet Count Result 214 k/mm3 (150-375); Red Blood Count 2.67 M/mm3 (4.6-6.20); White Blood Count 7.5 K/mm3 (4.5-10.0)
[2025-07-12 04:45] LABS: Albumin Level 2.4 g/dL (3.5-5.1); Anion Gap 1 mmol/L (4-12); Blood Urea Nitrogen 12 mg/dL (9-20); Calcium 7.6 mg/dL (8.4-10.2); Carbon Dioxide 27 mmol/L (22-30); Chloride 107 mmol/L (98-107); Estimated CRCL calculation 58 ml/min; Estimated Glomerular Filt Rate > 60; Glucose 81 mg/dL (65-110); Magnesium 2.0 mg/dL (1.6-2.3); Potassium 3.3 mmol/L (3.4-5.0); Sodium 135 mmol/L (137-145)
[2025-07-12] MEDS: CENTRAL LINE FLUSH 10 ML IV PUSH ×3 (05:33→20:41)
--- NOTE | 2025-07-12 08:59 | P.PNIM_ITS ---
Progress Note: A&P Assessment and Plan (1) Sepsis: Code(s): A41.9 - Sepsis, unspecified organism Status: Acute Assessment and Plan: -his white count was noted to be 20.6 which up trended to 37 K now on down tr end Blood culture negative to date. Urine culture 06/27 with pansensitive E coli and Proteus mirabilis. -patient was empirically placed on Rocephin, doxycycline, and vancomycin. Hypotension on admission felt related to sepsis -the patient is lethargic and will only open his eyes when his name is called out on admission. -source unknown at this time. -may consider Infectious Disease consult. -lactic acid 4.3 on admission -was on IV fluids Patient treated with vancomycin and Rocephin. Leukocytosis now resolved Rocephin 7 days course completed. Completed antibiotics (2) Encephalopathy: Code(s): G93.40 - Encephalopathy, unspecified Status: Acute Assessment and Plan: Patient with AMS. Head CT showing no acute intracranial hemorrhage or extra axial fluid collections. Neurology consulted [facility] with EF 45-50%. [id number] MR mild TR moderate pulmonary hypertension mild aortic regurgitation. Carotid ultrasound with less than 50% stenosis bilateral internal carotid arteries Mental status improved and appears back to baseline MRI brain today showing a lacunar sized area of iso to hypointense signal on ADC mapping in the high right parietal region and hyperintense on DWI images suspicious for subacute lacunar infarction and ventriculomegaly slightly disproportionate to cortical volume loss. Will continue Eliquis and forgo ASA. Resume atorvastatin. Doing well with PT/OT Follow (3) Paroxysmal A-fib: Code(s): I48.0 - Paroxysmal atrial fibrillation Status: Acute Assessment and Plan: -the patient is in sinus tachycardia with occasional supraventricular premature complexes. -the patient had been on Eliquis in the past but recently had hematuria and was taken off of the blood thinner. -patient was given a dose of Cardizem in the emergency room. was on metoprolol Treated with IV fluids. Was also treated with IV diltiazem and was switched to sotalol by Cardiology. Currently rate controlled and switched to sinus rhythm (4) Hematuria: Code(s): R31.9 - Hematuria, unspecified Status: Acute Assessment and Plan: Patient with hematuria. Urology consulted. Serial HH. The patient has a history of prostate cancer. Is reported that the patient had a procedure within the last 2 weeks. Limon catheter was placed in the emergency room and started on CBI with resolution of hematuria CBI off now and no recurrence of significant hematuria. Voiding trial recommended by urology Followup with urology as outpatient. Remove Limon tomorrow. (5) Hypertension: Code(s): I10 - Essential (primary) hypertension Status: Acute Assessment and Plan: Patient's blood pressure was reviewed on 07/12 Blood pressure remains reasonably well controlled. 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 May consider vascular consult outpatient. Continue to monitor outpatient. (7) Hypoxia: Code(s): R09.02 - Hypoxemia Status: Acute Assessment and Plan: CTA chest showing atelectasis. Weaned off O2. Echo as above. Follow (8) Hyponatremia: Code(s): E87.1 - Hypo-osmolality and hyponatremia Status: Acute Assessment and Plan: -most likely related to dehydration. Na better at 135. Follow (9) Sleep apnea: Qualifiers: Sleep apnea type: obstructive Qualified Code(s): G47.33 - Obstructive sleep apnea (adult) (pediatric) Code(s): G47.30 - Sleep apnea, unspecified Status: Acute Assessment and Plan: Continue with auto titrate for CPAP/BiPAP Plan # MOOKIE with urinary retention on Limon catheter resolution of MOOKIE # Elevated troponin depressions on MOOKIE and significant anemia suspected type 2 # History of prostate cancer # Right upper extremity swelling noted to have subclavian and axillary acute DVT and hence started back on heparin drip. After heparinizing for 24-48 hour will plan to remove the PICC line as PICC line is nonfunctional at this point. Remove PICC line. # Anemia with FOBT positive GI consulted. Placed on PPI. H&H dropped down to 6.6 status post PRBC transfusion 07/10/2025. Recheck post transfusion adequate and remains stable with no other signs of bleeding. Continue to monitor H&H with ongoing anticoagulation. Changed to Eliquis. If H&H remains stable will plan to DC in 1-2 days DVT prophylaxis - Eliquis Code status - DNR Subjective Date/time seen: 07/12/25 08:59 Interval history: 85yo male patient with pAFib, GERD, hypertension and prostate cancer admitted on 06/28/25 for weakness and hematuria. Assuming care. Chart reviewed. He is feeling well. He is up walking in the halls and doing steps. Had a small amount of blood noted iin the urine last night but this has resolved. No CP or SOB. Exam Narrative: AF 98.1 167/78 54 22 99% ra Gen - NARD Chest - decreased BS in the right base o/w clear. nml RR CV - RRR S1/S2. Tele showing 2 episodes of NSVT (up to 5 beats) Abd - Soft, NT/ND, Positive BS - Limon secured draining clear yellow urine. Ext - No pedal edema. RUE PICC line in place. Neuro - Alert and oriented x4. Psych - Nml mood and affect Skin - Warm and dry Objective Data Vital Signs Vital Signs: Vital Signs - 24 hr 07/11/25 10:00 07/11/25 11:33 07/11/25 12:00 Temperature 98.2 F Pulse Rate 58 L 51 L 55 L Respiratory Rate 18 Blood Pressure 132/68 Pulse Oximetry 99 Oxygen Delivery 07/11/25 14:00 07/11/25 16:00 07/11/25 16:00 Temperature 97.8 F Pulse Rate 59 L 60 60 Respiratory Rate 22 H 22 H Blood Pressure 136/69 Pulse Oximetry 99 99 Oxygen Delivery Room Air 07/11/25 16:00 07/11/25 18:00 07/11/25 20:00 Temperature 97.8 F Pulse Rate 60 58 L 59 L Respiratory Rate 22 H Blood Pressure 130/60 Pulse Oximetry 94 Oxygen Delivery 07/11/25 20:00 07/11/25 20:00 07/11/25 21:04 Temperature Pulse Rate 61 63 Respiratory Rate Blood Pressure Pulse Oximetry Oxygen Delivery Room Air 07/11/25 23:58 07/12/25 00:00 07/12/25 00:00 Temperature 97.8 F Pulse Rate 55 L 52 L Respiratory Rate 22 H Blood Pressure 127/57 L Pulse Oximetry 98 Oxygen Delivery Room Air 07/12/25 02:00 07/12/25 03:45 07/12/25 04:00 Temperature 97.8 F Pulse Rate 50 L 56 L Respiratory Rate 22 H Blood Pressure 137/60 Pulse Oximetry 96 Oxygen Delivery Room Air 07/12/25 04:00 07/12/25 06:00 Temperature Pulse Rate 50 L 52 L Respiratory Rate Blood Pressure Pulse Oximetry Oxygen Delivery Intake/Output Intake/Output: Intake & Output 07/09/25 07/10/25 07/11/25 07/12/25 23:59 23:59 23:59 23:59 Intake Total 1027.1 2771.3 1818 150 Output Total 2400 1400 1325 300 Balance -1372.9 1371.3 493 -150 Meds/Results Medications: Active Medications Generic Name Dose Route Start Last Admin Trade Name Freq PRN Reason Stop Dose Admin Acetaminophen 650 mg 06/28/25 01:26 Acetaminophen 650 Mg Suppository RECTAL Q6H PRN Mild Pain (1-3) or Fever Acetaminophen 650 mg 06/29/25 10:38 07/09/25 21:07 Acetaminophen 325 Mg Tablet PO 650 mg Q4H PRN Administration Mild Pain (1-3) or Fever Apixaban 5 mg 07/11/25 21:00 07/11/25 21:04 Apixaban 5 Mg Tablet PO 07/18/25 09:01 5 mg Q12HR EUGENIO Administration Apixaban 10 mg 07/18/25 21:00 Apixaban 5 Mg Tablet PO Q12HR EUGENIO Heparin Sodium (Porcine) 5,000 units 07/07/25 14:27 07/07/25 22:47 Heparin Sodium 5,000 Units/Ml Vial IV PUSH 5,000 units PRN PRN Administration aPTT less than 55 seconds Heparin Sodium (Porcine) 2,500 units 07/07/25 14:27 07/10/25 21:08 Heparin Sodium 5,000 Units/Ml Vial IV PUSH 2,500 units PRN PRN Administration aPTT 55 - 70 seconds Ipratropium [place] 0.5 mg 07/06/25 11:47 Ipratropium Br 0.02% Inh Soln 0.5 Mg/2.5 Ml Vial INHALATION Q6HRT PRN Shortness Of Breath Or Wheezing Latanoprost 1 drop 06/28/25 21:00 07/11/25 21:07 Latanoprost 0.005% Op Soln 2.5 Ml Btl EACH EYE 1 drop HS EUGENIO Administration Levalbuterol HCl 0.63 mg 07/06/25 11:47 Levalbuterol Neb 1.25 Mg/3 Ml INHALATION Q6HRT PRN Shortness Of Breath Or Wheezing Ondansetron HCl 4 mg 06/28/25 13:33 06/30/25 12:00 Ondansetron Inj 4 Mg/2 Ml Vial IV PUSH 4 mg Q4H PRN Administration Nausea And Vomiting Pantoprazole Sodium 40 mg 07/08/25 21:00 07/11/25 21:04 Pantoprazole 40 Mg Tablet PO 40 mg Q12HR EUGENIO Administration Sodium Chloride 10 ml 07/10/25 14:00 07/12/25 05:33 Central Line Flush IV PUSH 10 ml Q8HR EUGENIO Administration Sodium Chloride 10 ml 07/10/25 13:03 Central Line Flush IV PUSH PRN PRN with TPN bag changes Sodium Chloride 20 ml 07/10/25 13:03 07/10/25 14:20 Central Line Flush IV PUSH 20 ml PRN PRN Administration after blood draws Sotalol HCl 80 mg 07/05/25 10:25 07/11/25 21:04 Sotalol Hcl 80 Mg Tablet PO 80 mg Q12HR EUGENIO Administration Radiology Results: ITS Impressions Head CT 06/27/25 21:22 IMPRESSION: No acute intracranial hemorrhage or extra axial fluid collections. All CT scans at this facility are performed using low dose modulation techniques as appropriate to perform exam including the following: automated exposure control; use of iterative reconstruction technique; adjustment of the mA and/or kV according to patient size (this includes techniques or standardized protocols for targeted exams where dose is matched to indication/reason for exam). Chest/Abdomen/Pelvis CTA 06/27/25 22:00 IMPRESSION: 1. Hyperdense soft tissue of the bladder lumen, likely blood clot. Limon catheter present in the bladder lumen. 2: No evidence for aortic aneurysm or dissection. 3: Stenosis of the celiac axis, SMA and renal arteries. Carotid Doppler Study 06/28/25 20:17 IMPRESSION: 1. Less than 50% stenosis in the right internal carotid artery by sonographic criteria. 2. Less than 50% stenosis in the left internal carotid artery by sonographic criteria. Pelvis Ultrasound 07/03/25 12:59 IMPRESSION: Probable large clot in the urinary bladder which is poorly distended and otherwise not well evaluated. Chest X-Ray 07/10/25 13:16 IMPRESSION: 1. Right PICC catheter tip upper SVC. 2. Mild bibasilar atelectasis and/or airspace disease, with small pleural effusions. Labs Labs: Laboratory Results - last 24 hr 07/11/25 07/11/25 07/12/25 11:09 18:55 04:25 WBC 7.5 RBC 2.67 L Hgb 8.4 L 7.8 L Hct 25.9 L 25.1 L MCV 94.0 MCH 29.2 MCHC 31.1 L RDW 16.9 H Plt Count 214 MPV 9.7 APTT 76.4 H 60.9 H Sodium 135 L Potassium 3.3 L Chloride 107 Carbon Dioxide 27 Anion Gap 1 L BUN 12 Creatinine 0.67 L Estim Creat Clear Calc 58 Estimated GFR > 60 Glucose 81 Calcium 7.6 L Phosphorus 3.0 Magnesium 2.0 Albumin 2.4 L
[2025-07-12] MEDS: POTASSIUM CHLORIDE 20 MEQ ER TABLET 40 MEQ PO (10:31)
[2025-07-12] MEDS: APIXABAN 5 MG TABLET 10 MG PO ×2 (10:32→20:32)
[2025-07-12] MEDS: PANTOPRAZOLE 40 MG TABLET PO ×2 (10:32→20:33)
[2025-07-12] MEDS: SOTALOL HCL 80 MG TABLET PO ×2 (10:32→20:36)
[2025-07-12] MEDS: CENTRAL LINE FLUSH 20 ML IV PUSH (13:28)
[2025-07-12] MEDS: ATORVASTATIN 40 MG TABLET PO (20:34)
[2025-07-12] MEDS: LATANOPROST 0.005% OP SOLN 2.5 ML BTL 1 DROP EACH EYE (20:41)
[2025-07-13] VITALS (12 sets, daily range): BP systolic 140–156; BP diastolic 59–74; PULSE 47–59; RESP 20–22; TEMP 36.4–36.9; O2SAT 98–100
[2025-07-13] MEDS: CENTRAL LINE FLUSH 10 ML IV PUSH (04:43)
[2025-07-13 05:05] LABS: Hematocrit 25.9 % (42.0-52.0); Hemoglobin 8.1 g/dL (14.0-18.0); Mean Corpuscular HGB Conc 31.3 g/dl (32-36); Mean Corpuscular Hemoglobin 29.6 pg (26-34); Mean Corpuscular Volume 94.5 fl (80-100); Platelet Count Result 183 k/mm3 (150-375); Red Blood Count 2.74 M/mm3 (4.6-6.20); White Blood Count 7.1 K/mm3 (4.5-10.0)
[2025-07-13 05:18] LABS: Albumin Level 2.5 g/dL (3.5-5.1); Anion Gap 1 mmol/L (4-12); Anion Gap 2 mmol/L (4-12); Blood Urea Nitrogen 9 mg/dL (9-20); Calcium 7.8 mg/dL (8.4-10.2); Calcium 7.9 mg/dL (8.4-10.2); Carbon Dioxide 27 mmol/L (22-30); Chloride 106 mmol/L (98-107); Estimated CRCL calculation 57 ml/min; Estimated Glomerular Filt Rate > 60; Glucose 80 mg/dL (65-110); Magnesium 2.0 mg/dL (1.6-2.3); Potassium 3.6 mmol/L (3.4-5.0); Sodium 134 mmol/L (137-145); Sodium 135 mmol/L (137-145)
[2025-07-13] MEDS: SOTALOL HCL 80 MG TABLET PO (08:55)
[2025-07-13] MEDS: APIXABAN 5 MG TABLET 10 MG PO (08:56)
[2025-07-13] MEDS: PANTOPRAZOLE 40 MG TABLET PO (08:56)
--- NOTE | 2025-07-13 15:44 | P.DS_ITS ---
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: Code(s): I70.1 - Atherosclerosis of renal artery Status: Acute (7) Hypoxia: Code(s): R09.02 - Hypoxemia Status: Acute (8) Hyponatremia: Code(s): E87.1 - Hypo-osmolality and hyponatremia Status: Acute (9) Sleep apnea: Qualifiers: Sleep apnea type: obstructive Qualified Code(s): G47.33 - Obstructive sleep apnea (adult) (pediatric) Code(s): G47.30 - Sleep apnea, unspecified Status: Acute (10) CVA (cerebral vascular accident): Code(s): I63.9 - Cerebral infarction, unspecified Status: Acute DS: Summary Hospital Course Reason for hospitalization: 85yo male patient with pAFib, GERD, hypertension and prostate cancer admitted on 06/28/25 for weakness and hematuria. Please see H&P for details Hospital Course: (1) Sepsis: WBC was 20.6 which up trended to 37K before trending to normal. Blood culture negative. Urine culture 06/27 with pansensitive E coli and Proteus mirabilis. Patient was empirically placed on Rocephin, doxycycline, and vancomycin. Hypotension on admission felt related to sepsis. The patient was lethargic on admission. Lactic acid 4.3 on admission. He was started on IV fluids. He completed a course of antibiotics. (2) Encephalopathy: Patient with AMS on admission. Head CT showing no acute intracranial hemorrhage or extra axial fluid collections. Neurology consulted. Echo with EF 45-50%. [id number] MR, mild TR, moderate pulmonary hypertension and mild aortic regurgitation. Carotid ultrasound with less than 50% stenosis bilateral internal carotid arteries. Mental status improved and appears back to baseline. MRI brain showing a lacunar sized area of iso to hypointense signal on ADC mapping in the high right parietal region and hyperintense on DWI images suspicious for subacute lacunar infarction and ventriculomegaly slightly disproportionate to cortical volume loss. We continued Eliquis and held off on starting ASA. We resumed atorvastatin. He did well with PT/OT (3) Paroxysmal A-fib: The patient was in sinus tachycardia with occasional supraventricular premature complexes. The patient had been on Eliquis in the past but recently had hematuria and was taken off. The patient was given a dose of Cardizem in the emergency room and started on metoprolol. He was also treated with IV fluids. He was switched to sotalol by Cardiology. Currently rate controlled and now back in sinus rhythm (4) Hematuria: Patient with hematuria. Urology consulted. Serial HH. The patient has a history of prostate cancer. Patient had a recent urologic procedure within the last 2 weeks. He was home with a Husain that had recently been removed just prior to admission. Husain catheter was placed in the emergency room and started on CBI with resolution of hematuria. CBI off now and no recurrence of significant hematuria. He toelrated resuming anticoagulation. Voiding trial recommended by urology. Husain removed 07/13 and patient voiding normally with hematuria. PVR is less than 250mL. Followup with urology as outpatient. (5) Hypertension: Patient's blood pressure was monitored and remained reasonably well controlled. 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 May consider vascular consult outpatient. Will refer to Cardiology to manage as outpatient. (7) Hypoxia: Patient with hypoxia early in his hospital course. CTA chest showing atelectasis. He was weaned off O2. Echo as above. (8) Hyponatremia: Sodium 129 most likely related to dehydration. Na better at 135. (9) Sleep apnea: Encouraged CPAP/BiPAP use here and after discharge. (10) Right Upper Extremity DVT: Right upper extremity swelling noted. US showing subclavian and axillary acute DVT and hence started back on heparin drip. After heparinizing for 24-48 hour without hematuria, he was switched to Eliquis. PICC line was resumed at day of discharge. (11) MOOKIE - related to urinary retention on Husain catheter resolution of MOOKIE (12) Anemia with FOBT positive: GI consulted. Placed on PPI. H&H dropped down to 6.6 status post PRBC transfusion 07/10/2025. Recheck post transfusion adequate and remains stable with no other signs of bleeding. The patient overall did well and was able to be discharged 07/13/25. Discharge instructions discussed including medication side effects and all questions answered. Status at Discharge Cognitive/behavioral status at discharge: stable Time Spent with Patient Time attestation: Total time spent providing and/or coordinating discharge services: 35 minutes Time spent: Greater than 30 minutes Exam Narrative: AF 98.2 156/74 55 22 100% ra Gen - NARD Chest - CTA bilaterally, nml RR CV - RRR S1/S2. Tele showing sinus rhythm Abd - Soft, NT/ND, Positive BS Ext - trace pedal edema. Neuro - Alert and appropriate Psych - Nml mood and affect Skin - Warm and dry DS: Data Data Completed and Pending Labs on day of discharge: Labs from last 24 hours 07/13/25 07/13/25 07/13/25 04:41 04:41 04:41 WBC RBC Hgb Hct MCV MCH MCHC RDW Plt Count MPV Sodium Potassium Chloride Carbon Dioxide Anion Gap BUN Creatinine Estim Creat Clear Calc Estimated GFR > 60 Glucose 80 80 Calcium 7.8 L 7.9 L Phosphorus 3.1 Magnesium 2.0 Albumin 2.5 L 07/13/25 07/13/25 07/13/25 04:41 04:41 04:41 WBC RBC Hgb Hct MCV MCH MCHC RDW Plt Count MPV Sodium Potassium Chloride Carbon Dioxide Anion Gap BUN 9 Creatinine 0.68 L 0.68 L Estim Creat Clear Calc 57 57 Estimated GFR > 60 Glucose Calcium Phosphorus Magnesium Albumin 07/13/25 07/13/25 07/13/25 04:41 04:41 04:41 WBC RBC Hgb Hct MCV MCH MCHC RDW Plt Count MPV Sodium Potassium Chloride 106 Carbon Dioxide 27 27 Anion Gap 1 L 2 L BUN 9 Creatinine Estim Creat Clear Calc Estimated GFR Glucose Calcium Phosphorus Magnesium Albumin 07/13/25 07/13/25 07/13/25 04:41 04:41 04:41 WBC 7.1 RBC 2.74 L Hgb 8.1 L Hct 25.9 L MCV 94.5 MCH 29.6 MCHC 31.3 L RDW 16.9 H Plt Count 183 MPV 9.6 Sodium 134 L 135 L Potassium 3.6 3.6 Chloride 106 Carbon Dioxide Anion Gap BUN Creatinine Estim Creat Clear Calc Estimated GFR Glucose Calcium Phosphorus Magnesium Albumin Discharge Plan Discharge Attending physician on discharge: Omar Marie Consulting providers: Juanjose Salcido; Ernesto Klein; Poornima Evans; Pretty Crump Discharging Clinician: Omar Marie Anticipated Discharge Date/Time: 07/13/25 16:04 Patient Disposition: Home with Home Health Service Activity: as tolerated Diet: heart healthy Discharge Instructions: Per Care Coordination: [facility] ([phone]) will call to set up initial visit. Recommend compression hose on during the morning and off before bed. Wear CPAP/BiPAP at night and with naps Check blood pressure 1 to 2 times a day. Record and bring into your doctor for review. Call your doctor if your blood pressure is greater than 180/110. Take precautions to avoid falls. Rise slowly from a lying or sitting position. Pause before standing or walking. Check daily morning weights after voiding. Call your doctor if you gain more than 3 lb in 2 days or 5 lb in 1 week. Contact your doctor or call 911 and come to the Emergency Room if you have blood in your urine, lightheadedness with standing or other worrisome symptoms. Avoid NSAIDs (ibuprofen, naproxen, Aleve). Tylenol is safe to take. Your Eliquis dose has changed: Take 10mg (2 tabs) every 12 hours through 07/18/25 then start Eliquis 5mg (1 tab) every 12 hours starting in the morning of 07/19/25. Follow-up with your primary care provider in 1-2 weeks. Please call for appointment. Follow-up with urology in 2 weeks. Please call for an appointment Follow-up with cardiology in 2-3 weeks. Please call for an appointment Follow-up with GI in 2-3 weeks. Please call for an appointment. Follow-up with Neurology in 4-6 weeks. Please call for an appointment. Happy Thanksgiving!! Thank you for using [facility] for your health care needs. Patient Instructions: Antibiotic Form, Apixaban (By mouth) Patient Language: Spanish Stand Alone Forms: General Discharge Information Follow-up/Referrals: Raul Zepeda MD [Physician, Cardiology] Ernesto Klein MD [Physician, Neurology] - Call for Appointment Elmer Mosley PA [Physician [employer], Urology] - 2 Weeks Referral Note: urinary retention, gross hematuria Eric Bedolla MD [Physician, Gastroenterology] - Call for Appointment Kayla Lindquist APRN [Primary Care Provider, Internal Medicine] - Call for Appointment Discharge Medications: New pantoprazole 40 mg Tablet,Delayed Release (Dr/Ec) 40 mg PO DAILY Qty: 30 0RF sotalol 80 mg Tablet 80 mg PO Q12HR Qty: 60 1RF Eliquis 5 mg Tablet 10 mg PO Q12HR Qty: 22 0RF Rx Instructions: take 10mg (2 tabs) every 12 hours through 07/18 then start Eliquis 5mg every 12 hours on 07/19 Continued multivitamin [Multiple Vitamins] Tablet 1 tablet PO DAILY latanoprost 0.005 % drops 1 drp EACH EYE HS [id number] [MegaRed [place]-3 Krill Oil] [id number] mg capsule 1 cap PO DAILY atorvastatin 40 mg tablet 40 mg PO HS Qty: 90 1RF alendronate 35 mg tablet See Rx Instructions .ROUTE .COMPLEX Qty: 12 1RF Dose Instruction: TAKE 1 TABLET BY MOUTH WEEKLY ON AN EMPTY STOMACH AND FULL GLASS OF WATER. WAIT 1 HOUR BEFORE ANYTHING ELSE BY MOUTH OR LYING DOWN Rx Instructions: TAKE 1 TABLET BY MOUTH WEEKLY ON AN EMPTY STOMACH AND FULL GLASS OF WATER. WAIT 1 HOUR BEFORE ANYTHING ELSE BY MOUTH OR LYING DOWN PreserVision AREDS-2 250-90-40-1 mg capsule 1 tablet PO BID cholecalciferol (vitamin D3) 10 mcg (400 unit) tablet 10 mcg PO DAILY calcium carbonate 500 mg calcium (1,250 mg) tablet,chewable 500 mg PO DAILY PRN (Reason: Indigestion) Changed acetaminophen 500 mg capsule 1,000 mg PO Q8H PRN (Reason: pain) Qty: 90 1RF Rx Instructions: max dose 3000mg daily (6 pills) Held Eliquis 5 mg Tablet 5 mg PO Q12HR Qty: 60 0RF Hold Instructions: Resume on 07/19/25. HOLD - Resume on 07/19/25 after you complete the 10mg loading dose Discontinued aspirin 81 mg tablet,delayed release (DR/EC) 81 mg PO DAILY lisinopril 20 mg tablet 20 mg PO DAILY Qty: 90 1RF metoprolol succinate [Toprol XL] 100 mg Tablet Extended Release 24 Hr 100 mg PO QAM Qty: 30 0RF Date of admission: 06/27/25 22:53 Primary Care Provider: Kayla Lindquist Admitting Provider: Onel Garcia Oca Attending physician on admission: Onel Garcia Oca Condition: Stable Hospitalist MIPS Heart Failure (Exclusion) Patient has history of Heart Transplant or Left Ventricular Assistive Device?: No IF YES, STOP HERE Heart Failure (Qualifier) Patient has current or prior documentation of LVEF less than or equal to 40%, or mod/servere depressed LVSF?: No IF NO, STOP HERE
[2025-07-16 20:07] LABS: Osmolality, Urine 395 mOsmol/kg (.)
== END 2025-07-13 18:16 | disposition home health service (06) | DRG 871 ==
LOC: ANHED 23:30 → ANHIMU 23:31 → ANHICU 06-28 13:08 → ANHIMU 07-02 17:36
PROVIDERS: Family Medicine; General Practice; Internal Medicine; Nurse Practitioner; Admitting Provider Student in an Organized Health Care Education/Training Program; Emergency Provider Student in an Organized Health Care Education/Training Program; PCP Nurse Practitioner Family; Visit Provider Internal Medicine
DX: A41.51 Sepsis due to Escherichia coli [E. coli] (principal); G93.41 Metabolic encephalopathy; R65.21 Severe sepsis with septic shock; I21.A1 Myocardial infarction type 2; E87.1 Hypo-osmolality and hyponatremia; N13.30 Unspecified hydronephrosis; D62 Acute posthemorrhagic anemia; N17.9 Acute kidney failure, unspecified; I24.9 Acute ischemic heart disease, unspecified; I82.621 Acute embolism and thrombosis of deep veins of right upper extremity; N30.01 Acute cystitis with hematuria; A41.59 Other Gram-negative sepsis; E78.2 Mixed hyperlipidemia; E86.0 Dehydration; E55.9 Vitamin D deficiency, unspecified; G47.33 Obstructive sleep apnea (adult) (pediatric); I12.9 Hypertensive chronic kidney disease with stage 1 through stage 4 chronic kidney disease, or unspecified chronic kidney disease; I70.1 Atherosclerosis of renal artery; I48.0 Paroxysmal atrial fibrillation; K21.9 Gastro-esophageal reflux disease without esophagitis; M21.372 Foot drop, left foot; N18.32 Chronic kidney disease, stage 3b; R33.9 Retention of urine, unspecified; Z79.82 Long term (current) use of aspirin; Z20.822 Contact with and (suspected) exposure to COVID-19; Z85.46 Personal history of malignant neoplasm of prostate; Z98.41 Cataract extraction status, right eye; Z98.42 Cataract extraction status, left eye; Z96.1 Presence of intraocular lens; Z96.612 Presence of left artificial shoulder joint; Z96.611 Presence of right artificial shoulder joint; Z95.5 Presence of coronary angioplasty implant and graft; Z66 Do not resuscitate
CPT/HCPCS: 36415; 36430; 36569; 36600; 70450; 70553; 71045; 71275; 74174; 76857; 80048; 80053; 80069; 80202; 81001; 82274; 82550; 82805; 82948; 83605; 83735; 83930; 83935; 84100; 84145; 84295; 84300; 84484; 85014; 85018; 85025; 85027; 85055; 85610; 85730; 86850; 86900; 86901; 86923; 87040; 87186; 87637; 92507; 92523; 93005; 93306; 93880; 93971; 94640; 96361; 96374; 96375; 97110; 97161; 97165; 97530; 97535; 99285; A9270; A9577; C1751; J0613; J0696; J1160; J1163; J1200; J1644; J1938; J2003; J2185; J2270; J2405; J2919; J3373; J3475; J7030; J7050; J7120; P9016; P9047; Q9967